=== PATIENT | male | born 1935 | race Caucasian/White ===

== ENCOUNTER 2017-02-19 19:20 | Inpatient (IN) | payer OTHER, MEDICARE ==
[~2017-02-19] VITALS: Ht 167.6 cm; Wt 78.0 kg
[2017-02-19 19:26] VITALS: BP 162/70; PULSE 134; RESP 24; TEMP 100.2; O2SAT 97
[2017-02-19] MEDS ORDERED: VANCOMYCIN INJ 1,000 MG in SODIUM CHLOR 0.9% 250 ML INJ 250 ML IV STA (19:55)
[2017-02-19] MEDS ORDERED: CEFEPIME INJ 2,000 MG in SODIUM CHLORIDE 0.9% INJ 100 ML IV STA (19:55)
[2017-02-19] MEDS ORDERED: SODIUM CHLOR 0.9% 1000 ML INJ 800 ML IV ONE (19:56)
[2017-02-19] MEDS ORDERED: SODIUM CHLOR 0.9% 1000 ML INJ 1,000 ML IV ONE (19:56)
--- NOTE | 2017-02-19 19:58 | PD ---
HPI Chief Complaint: Altered Mental Status Time Seen by Provider: 19:58 Travel History International Travel<30 days: No Contact w/Intl Traveler<30days: No Traveled to known affect area: No History of Present Illness HPI 81-year-old male comes in to the emergency department by [facility] for evaluation of altered mental status. Patient is able to tell me his name but unable to tell me any medical history at this time. Denies any pain. Patient was febrile 103 orally and round. [facility] gave fluid. Patient's temperature had decreased but remained febrile here in the emergency department. He is responsive to voice and follows commands. His arrives and tells me that she does not know his medical history. He is a patient at the [facility]. She states that she notes he does have bone cancer and he is typically awake and alert and very spry. He takes care of himself and this is very different from his usual self. He states that he recently finished treatment for UTI. He was normal last evening and vomited twice throughout the night and one time today. He has otherwise been very sleepy and difficult for her to get an appropriate response from. She called [facility] for this reason. [facility] Past Medical History Medical History: Unable to Obtain Social History Alcohol Use: No Tobacco Use: No Substance Use: No Allergies-Medications (Allergen,Severity, Reaction): Coded Allergies: No Known Allergies (Unverified , 02/19/17) Reported Meds & Prescriptions Reported Meds & Active Scripts Active Reported Zytiga (Abiraterone) 250 Mg Tab 1,000 Mg PO DAILY #1 HR LUNCHAC Hazardous agent; use appropriate precautions for handling & disposal. Take on an empty stomach, 1 hr before or 2 hrs after food. Swallow whole, do not crush or chew. Pravastatin 40 Mg Tab 40 Mg PO HS Colace (Docusate Sodium) 100 Mg Cap 100 Mg PO HS Metoprolol Tartrate 25 Mg Tab 25 Mg PO BID Review of Systems ROS Limitations: Altered Mental Status General / Constitutional: Positive: Fever Physical Exam Exam Limitations: Altered Mental Status Narrative GENERAL: Patient is lying in bed, arousable, with mild rigors. Patient is oriented to self. Uncertain of where he is or what day it is. SKIN: Warm and dry. HEAD: Atraumatic. Normocephalic. EYES: Pupils equal and round. No scleral icterus. No injection or drainage. ENT: No nasal bleeding or discharge. Mucous membranes pink and moist. NECK: Trachea midline. No JVD. Patient demonstrates no nuchal rigidity or other meningeal signs. CARDIOVASCULAR: Tachycardic rate and rhythm. RESPIRATORY: No accessory muscle use. Diminished, likely due to poor inspiratory effort. Breath sounds equal bilaterally. Abdomen: Abdomen soft, non-tender, nondistended. Positive bowel sounds. No hepato-splenomegaly, or palpable masses. No guarding. MUSCULOSKELETAL: No obvious deformities. No clubbing. No cyanosis. No edema. NEUROLOGICAL: Lethargic, arousable. No obvious cranial nerve deficits. Motor grossly within normal limits. Normal speech. Data Data Last Documented VS Vital Signs Date Time Temp Pulse Resp B/P Pulse Ox O2 Delivery O2 Flow Rate FiO2 02/19/17 21:09 132 20 141/62 96 Nasal Cannula 2 02/19/17 20:05 101.4 Orders Electrocardiogram (02/19/17 ) Complete Blood Count With Diff (02/19/17 19:55) Comprehensive Metabolic Panel (02/19/17 19:55) Prothrombin Time / Inr (Pt) (02/19/17 19:55) Act Partial Throm Time (Ptt) (02/19/17 19:55) Lactic Acid Sepsis Protocol (02/19/17 19:55) Magnesium (Mg) (02/19/17 19:55) Lipase (02/19/17 19:55) Ckmb (Isoenzyme) Profile (02/19/17 19:55) Troponin I (02/19/17 19:55) Urinalysis - C+S If Indicated (02/19/17 19:55) Influenzae A/B Antigen (02/19/17 19:55) Blood Culture (02/19/17 19:55) Chest, Single Ap (02/19/17 19:55) Blood Glucose (02/19/17 19:55) Ecg Monitoring (02/19/17 19:55) Iv Access Insert/Monitor (02/19/17 19:55) Oximetry (02/19/17 19:55) Oxygen Administration (02/19/17 19:55) Ct Brain W/O Iv Contrast(Rout) (02/19/17 19:55) Vancomycin Inj (Vancomycin Inj) (02/19/17 19:55) Cefepime Inj (Maxipime Inj) (02/19/17 19:55) Sodium Chlor 0.9% 1000 Ml Inj (Ns 1000 M (02/19/17 19:56) Sodium Chlor 0.9% 1000 Ml Inj (Ns 1000 M (02/19/17 19:56) B-Type Natriuretic Peptide (02/19/17 20:02) Urinary Catheter Management LUCERO.Q8H (02/19/17 20:10) Urine Culture (02/19/17 20:50) Labs Laboratory Tests Test 02/19/17 02/19/17 20:05 20:50 White Blood Count 8.4 TH/MM3 Red Blood Count 4.49 MIL/MM3 Hemoglobin 14.7 GM/DL Hematocrit 42.5 % Mean Corpuscular Volume 94.6 FL Mean Corpuscular Hemoglobin 32.8 PG Mean Corpuscular Hemoglobin 34.7 % Concent Red Cell Distribution Width 13.4 % Platelet Count 245 TH/MM3 Mean Platelet Volume 8.5 FL Neutrophils (%) (Auto) 82.0 % Lymphocytes (%) (Auto) 8.9 % Monocytes (%) (Auto) 7.3 % Eosinophils (%) (Auto) 1.4 % Basophils (%) (Auto) 0.4 % Neutrophils # (Auto) 6.9 TH/MM3 Lymphocytes # (Auto) 0.7 TH/MM3 Monocytes # (Auto) 0.6 TH/MM3 Eosinophils # (Auto) 0.1 TH/MM3 Basophils # (Auto) 0.0 TH/MM3 CBC Comment DIFF FINAL Differential Comment Prothrombin Time 11.4 SEC Prothromb Time International 1.0 RATIO Ratio Activated Partial 27.4 SEC Thromboplast Time Sodium Level 141 MEQ/L Potassium Level 3.6 MEQ/L Chloride Level 110 MEQ/L Carbon Dioxide Level 20.3 MEQ/L Anion Gap 11 MEQ/L Blood Urea Nitrogen 23 MG/DL Creatinine 1.88 MG/DL Estimat Glomerular Filtration 34 ML/MIN Rate Random Glucose 121 MG/DL Lactic Acid Level 3.5 mmol/L Calcium Level 8.4 MG/DL Magnesium Level 1.8 MG/DL Aspartate Amino Transf 20 U/L (AST/SGOT) Albumin 3.3 GM/DL Lipase 171 U/L Urine Color YELLOW Urine Turbidity HAZY Urine pH 5.0 Urine Specific [place] 1.012 Urine Protein 30 mg/dL Urine Glucose (UA) NEG mg/dL Urine Ketones NEG mg/dL Urine Occult Blood SMALL Urine Nitrite NEG Urine Bilirubin NEG Urine Urobilinogen LESS THAN 2.0 MG/DL Urine Leukocyte Esterase MOD Urine RBC 6 /hpf Urine WBC 10 /hpf Urine Squamous Epithelial <1 /hpf Cells Urine Amorphous Sediment RARE Urine Bacteria MOD /hpf Urine Mucus FEW /lpf Microscopic Urinalysis Comment CATH-CULTURE IND MDM Medical Decision Making Medical Screen Exam Complete: Yes Emergency Medical Condition: Yes Medical Record Reviewed: Yes Differential Diagnosis sepsis versus UTI versus influenza versus pneumonia versus electrolyte abnormality Narrative Course 81-year-old male presents to emergency department for evaluation of altered mental status area patient is febrile and tachycardic upon arrival. He is lethargic, arousable. Sepsis protocols initiated. I discussed the patient with my attending physician Dr. Ng. Due to not knowing patient's medical history and age, we will start with half of the recommended dose for his weight and IV fluid normal saline bolus. Patient is given IV cefepime and vancomycin. Last Impressions Head CT 02/19/171954 Signed Impressions: Service Date/Time: January 20:19 - CONCLUSION: 1. No acute intracranial abnormalities. Sai Markham MD Chest X-Ray 02/19/171954 Signed Impressions: Service Date/Time: January 20:05 - CONCLUSION: 1. Linear atelectasis or scarring at the lung bases. No effusion or pneumothorax. Sai Markham MD Influenza screen is pending. CBC is without acute concern. No leukocytosis. No significant neutrophilia. No bandemia noted. CMP is with BUN of 23, creatinine 1.88, GFR 34. Lactic acid is elevated at 3.5. Liver enzymes and troponin are still pending. Urinalysis is hazy with 30 proteinuria, small focal blood, moderate leukocyte esterase, 6 rbc, 10 WBC, moderate bacteria, few mucus, culture is indicated. A call has a place to [facility] for admission. Diagnosis Primary Impression: Sepsis Qualified Code: A41.9 - Sepsis, due to unspecified organism Additional Impressions: UTI (urinary tract infection) Qualified Code: N39.0 - Urinary tract infection without hematuria, site unspecified Altered mental status Qualified Code: R41.82 - Altered mental status, unspecified altered mental status type Admitting Information Admitting Physician Requests: Admit Condition: Stable EsquedaPatsy orourke Feb 19, 2017 19:58
[2017-02-19 20:05] VITALS: TEMP 101.4
[2017-02-19] MEDS ORDERED: METO25TA3 PO (20:36)
[2017-02-19] MEDS ORDERED: ZYTI250T PO (20:36)
[2017-02-19] MEDS ORDERED: COLA100C3 PO (20:36)
[2017-02-19] MEDS ORDERED: PRAV40TA2 PO (20:36)
[2017-02-19 20:48] LABS: AUTOMATED NEUTROPHIL # 6.9 TH/MM3 (1.8-7.7); BASOPHIL % 0.4 % (0.0-2.0); EOSINOPHIL # 0.1 TH/MM3 (0-0.4); EOSINOPHIL % 1.4 % (0.0-4.0); HEMATOCRIT 42.5 % (39.0-51.0); HEMO FLAGS DIFF FINAL; LYMPH % 8.9 % (9.0-44.0); LYMPHOCYTE # 0.7 TH/MM3 (1.0-4.8); MEAN CELL VOLUME 94.6 FL (80.0-100.0); MEAN CORPUSCULAR HEMOGLOBIN 32.8 PG (27.0-34.0); MEAN CORPUSCULAR HGB CONC 34.7 % (32.0-36.0); MONO % 7.3 % (0.0-8.0); PLATELET COUNT 245 TH/MM3 (150-450); RED BLOOD COUNT 4.49 MIL/MM3 (4.50-5.90); RED CELL DISTRIBUTION WIDTH 13.4 % (11.6-17.2); WHITE BLOOD COUNT 8.4 TH/MM3 (4.0-11.0)
--- NOTE | 2017-02-19 20:48 | RADRPT ---
EXAM DATE/TIME: 02/19/2017 20:05 [facility] COMPARISON: No previous studies available for comparison. INDICATIONS : Fever MEDICAL HISTORY : None. SURGICAL HISTORY : None. ENCOUNTER: Initial ACUITY: 1 day PAIN SCORE: Non-responsive. LOCATION: chest FINDINGS: A single view of the chest demonstrates the lungs to be symmetrically aerated without evidence of mas s, infiltrate or effusion. Linear atelectasis or scarring at the bases. No effusion or pneumothorax. The cardiomediastinal contours are unremarkable. Osseous structures are intact. CONCLUSION: 1. Linear atelectasis or scarring at the lung bases. No effusion or pneumothorax. Sai Markham MD on February 19, 2017 at 20:45 Board Certified Radiologist. This report was verified electronically.
--- NOTE | 2017-02-19 20:55 | RADRPT ---
EXAM DATE/TIME: 02/19/2017 20:19 [facility] COMPARISON: No previous studies available for comparison. INDICATIONS : Altered mental status with fever and increased heart rate. RADIATION DOSE: 38.00 CTDIvol (mGy) MEDICAL HISTORY : None SURGICAL HISTORY : None. ENCOUNTER: Initial ACUITY: 1 day PAIN SCALE: 0/10 LOCATION: cranial TECHNIQUE: Multiple contiguous axial images were obtained of the head. Using automated exposure control and adj ustment of the mA and/or kV according to patient size, radiation dose was kept as low as reasonably a chievable to obtain optimal diagnostic quality images. FINDINGS: CEREBRUM: The ventricles are normal for age. No evidence of midline shift, mass lesion, hemorrhage or acute in farction. No extra-axial fluid collections are seen. POSTERIOR FOSSA: The cerebellum and brainstem are intact. The 4th ventricle is midline. The cerebellopontine angle i s unremarkable. EXTRACRANIAL: The visualized portion of the orbits is intact. SKULL: The calvaria is intact. No evidence of skull fracture. CONCLUSION: 1. No acute intracranial abnormalities. Sai Markham MD on February 19, 2017 at 20:50 Board Certified Radiologist. This report was verified electronically.
[2017-02-19 21:09] VITALS: BP 141/62; PULSE 132; RESP 20; O2SAT 96
[2017-02-19 21:09] LABS: ANION GAP 11 MEQ/L (5-15); AST (GOT) 20 U/L (15-37); BICARBONATE 20.3 MEQ/L (21.0-32.0); BLOOD UREA NITROGEN 23 MG/DL (7-18); CHLORIDE 110 MEQ/L (98-107); GLOMERULAR FILTRATION RATE 34 ML/MIN (>89); MAGNESIUM 1.8 MG/DL (1.5-2.5); POTASSIUM 3.6 MEQ/L (3.5-5.1); SODIUM (NA) 141 MEQ/L (136-145)
[2017-02-19 21:10] LABS: BACTERIA, URINE MOD /hpf; BLOOD, URINE SMALL (NEG); GLUCOSE,URINE NEG (NEG); KETONE, URINE NEG (NEG); MUCUS URINE FEW /lpf (OCC); NITRITE,URINE NEG (NEG); SQUAMOUS EPITHELIAL CELL URINE <1 /hpf (0-5); URINE COLOR YELLOW (YELLW/STRAW)
[2017-02-19 21:11] LABS: COMMENT (UR) CATH-CULTURE IND; CULTURE IF INDICATED CATH CULTURE IND
[2017-02-19 21:13] LABS: ALKALINE PHOSPHATASE 99 U/L (45-117); ALT (GPT) 17 U/L (12-78); TOTAL BILIRUBIN ADULT 0.7 MG/DL (0.2-1.0)
[2017-02-19 21:18] LABS: APTT (PATIENT) 27.4 SEC (24.3-30.1); PROTHROMBIN TIME - PATIENT 11.4 SEC (9.8-11.6)
[2017-02-19 21:26] LABS: CREATINE KINASE 72 U/L (39-308)
[2017-02-19] MEDS ORDERED: ACETAMINOPHEN 650 MG SUPP RECTAL ONE (21:30)
[2017-02-19 22:00] VITALS: BP 102/51; PULSE 127; RESP 21; TEMP 102.8; O2SAT 96
[2017-02-19 22:29] LABS: LACTIC ACID GHOST NOT REPORTABLE
[2017-02-19] MEDS ORDERED: NALOXONE HCL 0.4 MG/ML AMP IV PRN (23:00)
[2017-02-19] MEDS ORDERED: SODIUM CHLORIDE 0.9% FLUSH 10 ML FLUSH IV FLUSH PRN (23:00)
[2017-02-19 23:04] VITALS: BP 104/59; PULSE 122; RESP 18; O2SAT 96
[2017-02-19 23:45] VITALS: TEMP 103.3
[2017-02-19] MEDS ORDERED: IBUPROFEN 400 MG TAB PO ONE (23:45)
[2017-02-20] VITALS (32 sets, daily range): BP systolic 68–123; BP diastolic 42–82; PULSE 95–125; RESP 12–35; TEMP 96.8–102.4; O2SAT 92–98
--- NOTE | 2017-02-20 02:48 | HHI.HP ---
[facility] Admission Diagnosis SEPSIS, UTI; AMS Diagnoses: Chief Complaint: Nausea, vomiting, diarrhea Travel History International Travel<30 Days: No Contact w/Intl Traveler <30 Da: No Traveled to Known Affected Are: No History of Present Illness History from patient, ER physician for medication, interview of medical records. Patient reported that he came to the hospital because he was having nausea, vomiting, diarrhea. Next and he stated this started all of a sudden last night. He blames this on the lack son yet that he had. He stated it was homemade You but it was from the frozen section. His who ate the same thing was not sick. Patient is unsure whether he had fever at home. However in the emergency room, patient has documented fever of 103. He denies any cough. Denies any ear discharge/neck rigidity. Denies any urinary burning or pain on urination or frequent urination. However patient states that he was being treated for bladder infection recently. He states he completed 7 days course of antibiotics for his bladder infection. He states his last dose of antibiotics was 4 days ago. He reports that on December 02, 2016, he did have cystoscopy done for looking into his bladder. He states he developed this UTI after the procedure. Patient reports of history of prostate cancer for which he had radical prostatectomy about 20 years ago. He states that he then received radiation treatment about 6 years ago and completed that. He is currently now on oral chemotherapy daily for the past 2 years or so. 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 In the emergency room, patient's blood pressure was around 80s over 50s. He did receive 1 L normal saline bolus by ambulance personnel prior to arrival. He was awake alert and oriented. Not tachycardic. He was given vancomycin and cefepime in ER. Review of Systems Except as stated in HPI: all other systems reviewed are Neg Past Family Social History Past Medical History htn cad s/p 2 stents prostae ca with mets to bone - radical 20yrs ago,radiation 6 yrs ago, on oral chemo for past 2 yrs Past Surgical History prostectomy testicles removed gallbladder appendix Reported Medications Patient's medications listed in EMRreviewed. Allergies: Coded Allergies: No Known Allergies (Unverified , 02/19/17) Family History Denies any family history of any medical conditions. Social History quit smoking 60yrs ago social drinker Physical Exam Vital Signs Vital Signs Date Time Temp Pulse Resp B/P Pulse Ox O2 Delivery O2 Flow Rate FiO2 02/20/17 02:08 112 17 92/54 92 Nasal Cannula 2 02/20/17 01:20 101.9 02/20/17 01:00 125 19 123/81 96 Nasal Cannula 2 02/20/17 00:00 102.4 123 20 113/58 96 Nasal Cannula 2 02/19/17 23:45 103.3 02/19/17 23:04 122 18 104/59 96 Nasal Cannula 2 02/19/17 22:00 102.8 127 21 102/51 96 Nasal Cannula 2 02/19/17 21:09 132 20 141/62 96 Nasal Cannula 2 02/19/17 20:05 101.4 02/19/17 19:59 97 Nasal Cannula 2 02/19/17 19:26 100.2 134 24 162/70 97 Physical Exam GENERAL: This is a elderly gentleman, not in acute distress. Looks pale. Looks to be acutely ill and weak. However is very pleasant and awake and alert and oriented. SKIN: Tactile fever. HEAD: Atraumatic. Normocephalic. No temporal or scalp tenderness. EYES: No scleral icterus. No injection or drainage. ENT: Nose without bleeding, purulent drainage or septal hematoma.Airway patent. NECK: Trachea midline. No JVD Supple, nontender, no meningeal signs. CARDIOVASCULAR: Regular rate and rhythm without murmurs, gallops, or rubs. RESPIRATORY: Bilaterally decreased air entry. No kartik rales or wheezing. GASTROINTESTINAL: Abdomen soft, non-tender, nondistended. No guarding. No suprapubic tenderness. MUSCULOSKELETAL: Extremities without clubbing, cyanosis, or edema. No calf tenderness. NEUROLOGICAL: Awake and alert. Motor and sensory grossly within normal limits. Normal speech. Laboratory Laboratory Tests Test 02/19/17 02/19/17 02/19/17 20:05 20:50 22:53 White Blood Count 8.4 Red Blood Count 4.49 Hemoglobin 14.7 Hematocrit 42.5 Mean Corpuscular Volume 94.6 Mean Corpuscular Hemoglobin 32.8 Mean Corpuscular Hemoglobin 34.7 Concent Red Cell Distribution Width 13.4 Platelet Count 245 Mean Platelet Volume 8.5 Neutrophils (%) (Auto) 82.0 Lymphocytes (%) (Auto) 8.9 Monocytes (%) (Auto) 7.3 Eosinophils (%) (Auto) 1.4 Basophils (%) (Auto) 0.4 Neutrophils # (Auto) 6.9 Lymphocytes # (Auto) 0.7 Monocytes # (Auto) 0.6 Eosinophils # (Auto) 0.1 Basophils # (Auto) 0.0 CBC Comment DIFF FINAL Differential Comment Prothrombin Time 11.4 Prothromb Time International 1.0 Ratio Activated Partial 27.4 Thromboplast Time Sodium Level 141 Potassium Level 3.6 Chloride Level 110 Carbon Dioxide Level 20.3 Anion Gap 11 Blood Urea Nitrogen 23 Creatinine 1.88 Estimat Glomerular Filtration 34 Rate Random Glucose 121 Lactic Acid Level 3.5 1.7 Calcium Level 8.4 Magnesium Level 1.8 Total Bilirubin 0.7 Aspartate Amino Transf 20 (AST/SGOT) Alanine Aminotransferase 17 (ALT/SGPT) Alkaline Phosphatase 99 Total Creatine Kinase 72 Troponin I 0.03 B-Type Natriuretic Peptide 175 Total Protein 7.0 Albumin 3.3 Lipase 171 Urine Color YELLOW Urine Turbidity HAZY Urine pH 5.0 Urine Specific [place] 1.012 Urine Protein 30 Urine Glucose (UA) NEG Urine Ketones NEG Urine Occult Blood SMALL Urine Nitrite NEG Urine Bilirubin NEG Urine Urobilinogen LESS THAN 2.0 Urine Leukocyte Esterase MOD Urine RBC 6 Urine WBC 10 Urine Squamous Epithelial <1 Cells Urine Amorphous Sediment RARE Urine Bacteria MOD Urine Mucus FEW Microscopic Urinalysis Comment CATH-CULTURE IND Date/Time Procedure Status Source Growth 02/19/17 20:50 Urine Culture Received Urine Catheterized Urine Pending 02/19/17 20:50 Influenza Types A,B Antigen (CESAR) - Final Complete Nasal Washing NEGATIVE FOR FLU A AND B ANTIGEN.... 02/19/17 20:05 Aerobic Blood Culture Received Blood Peripheral Pending 02/19/17 20:05 Anaerobic Blood Culture Received Blood Peripheral Pending Result Diagram: 02/19/17200402/19/172004 Imaging Vital Signs Date Time Temp Pulse Resp B/P Pulse Ox O2 Delivery O2 Flow Rate FiO2 02/20/17 08:16 95/82 02/20/17 07:55 109 81/52 02/20/17 07:50 110 24 79/50 95 Nasal Cannula 2 02/20/17 07:26 82/50 02/20/17 07:11 Nasal Cannula 2 02/20/17 07:04 96.8 108 16 89/50 97 Nasal Cannula 2 02/20/17 06:52 110 18 110/56 94 Nasal Cannula 02/20/17 06:41 106 18 84/50 95 Nasal Cannula 2 02/20/17 06:30 110 20 82/53 94 Nasal Cannula 2 02/20/17 06:23 103 17 81/50 95 Nasal Cannula 2 02/20/17 06:16 107 18 81/49 93 Nasal Cannula 2 02/20/17 06:08 105 18 95/50 Nasal Cannula 2 02/20/17 05:50 107 18 87/52 95 Nasal Cannula 2 02/20/17 05:40 97.7 106 20 87/55 94 Nasal Cannula 2 02/20/17 05:17 105 17 85/46 95 Nasal Cannula 2 02/20/17 04:47 102 18 84/46 94 2 02/20/17 04:37 102 19 77/42 95 Nasal Cannula 2 02/20/17 04:36 103 18 68/44 95 Nasal Cannula 2 02/20/17 03:15 98.1 02/20/17 03:03 113 18 92/59 96 Nasal Cannula 2 02/20/17 02:08 112 17 92/54 92 Nasal Cannula 2 02/20/17 01:20 101.9 02/20/17 01:00 125 19 123/81 96 Nasal Cannula 2 02/20/17 00:00 102.4 123 20 113/58 96 Nasal Cannula 2 02/19/17 23:45 103.3 02/19/17 23:04 122 18 104/59 96 Nasal Cannula 2 02/19/17 22:00 102.8 127 21 102/51 96 Nasal Cannula 2 02/19/17 21:09 132 20 141/62 96 Nasal Cannula 2 02/19/17 20:05 101.4 02/19/17 19:59 97 Nasal Cannula 2 02/19/17 19:26 100.2 134 24 162/70 97 Assessment and Plan Problem List: (1) Septic shock ICD Code: A41.9 Status: Acute (2) UTI (urinary tract infection) ICD Code: N39.0 Status: Acute Assessment and Plan Impression: Septic shock Sources likely urine infection. Diarrhea/nausea/vomitingpossible food related. However we'll need to check for C. difficile since patient has recent hospitalization and antibiotics used for UTI. Immunocompromise stateon oral chemotherapy History of hypertension History of CADstatus post 2 stents History of prostate CA with metastasis to the boneradical prostatectomy 20 years ago. Radiation 6 years ago. On oral chemotherapy for past 2 years. Plan: Follow-up blood culture results and urine culture results. Cefepime 2 g IV every 12 hours Ciprofloxacin 400 mg IV every 12 hours. Stool for cultures. Stool for C. difficile. Chest x-raypersonally reviewed. No evidence of pneumothorax or pleural effusions. Patient was given IV fluids resuscitation. He received 2 L in ER. Has given additional 2 L by me. EMS had given 1 L. Despite the above, patient's BP was not improving. Lactic acid level also went back up. Urinary output to be monitored closely. Started on Solu-Cortef stress dose 100 mg IV every 8 hours. PPI while on steroids. DVT prophylaxiswith Lovenox. GI prophylaxis on pantoprazole. Discussed Condition With Patient, ER physician, patient's nurse Physician Certification 2 Midnight Certification Type: Admission for Inpatient Services Order for Inpatient Services The services are ordered in accordance with Medicare regulations or non- Medicare payer requirements, as applicable. In the case of services not specified as inpatient-only, they are appropriately provided as inpatient services in accordance with the 2-midnight benchmark. Estimated LOS (days): 5 days is the estimated time the patient will need to remain in the hospital, assuming treatment plan goals are met and no additional complications. Post-Hospital Plan: Not yet determined Problem Qualifiers (1) UTI (urinary tract infection): Qualified Code: N39.0 - Urinary tract infection without hematuria, site unspecified Yudelka Brady MD Feb 20, 2017 02:48
[2017-02-20] MEDS ORDERED: NOREPINEPHRINE 4 MG/4 ML AMP ONE (04:29)
[2017-02-20] MEDS ORDERED: Vancomycin Consult Pharmacy 1 EA OTHER SCH ×2 (04:30→06:45)
[2017-02-20] MEDS ORDERED: SODIUM CHLOR 0.9% 1000 ML INJ 1,000 ML IV ONE ×3 (04:30→09:45)
[2017-02-20] MEDS ORDERED: TERBUTALINE INJ 1 MG/ML AMP SQ PRN (04:30)
[2017-02-20] MEDS: NOREPINEPHRINE-DEXTROSE DRIP 250 ML IV SCH ×2 (04:35→09:08)
[2017-02-20 06:53] LABS: AUTOMATED NEUTROPHIL # 6.4 TH/MM3 (1.8-7.7); BASOPHIL # 0.1 TH/MM3 (0-0.2); EOSINOPHIL # 0.3 TH/MM3 (0-0.4); EOSINOPHIL % 3.7 % (0.0-4.0); HEMATOCRIT 38.3 % (39.0-51.0); HEMO FLAGS DIFF FINAL; LYMPH % 12.6 % (9.0-44.0); MEAN CELL VOLUME 94.4 FL (80.0-100.0); MEAN CORPUSCULAR HEMOGLOBIN 32.1 PG (27.0-34.0); MONO % 5.1 % (0.0-8.0); NEUT % 77.6 % (16.0-70.0); PLATELET COUNT 261 TH/MM3 (150-450); RED BLOOD COUNT 4.05 MIL/MM3 (4.50-5.90); RED CELL DISTRIBUTION WIDTH 13.8 % (11.6-17.2); WHITE BLOOD COUNT 8.2 TH/MM3 (4.0-11.0)
--- NOTE | 2017-02-20 06:55 | PD ---
Physical Exam Narrative I was asked by physician to place a central line for the patient. Data Data Last Documented VS Vital Signs Date Time Temp Pulse Resp B/P Pulse Ox O2 Delivery O2 Flow Rate FiO2 02/19/17 21:09 132 20 141/62 96 Nasal Cannula 2 02/19/17 20:05 101.4 Orders Electrocardiogram (02/19/17 ) Complete Blood Count With Diff (02/19/17 19:55) Comprehensive Metabolic Panel (02/19/17 19:55) Prothrombin Time / Inr (Pt) (02/19/17 19:55) Act Partial Throm Time (Ptt) (02/19/17 19:55) Lactic Acid Sepsis Protocol (02/19/17 19:55) Magnesium (Mg) (02/19/17 19:55) Lipase (02/19/17 19:55) Ckmb (Isoenzyme) Profile (02/19/17 19:55) Troponin I (02/19/17 19:55) Urinalysis - C+S If Indicated (02/19/17 19:55) Influenzae A/B Antigen (02/19/17 19:55) Blood Culture (02/19/17 19:55) Chest, Single Ap (02/19/17 19:55) Blood Glucose (02/19/17 19:55) Ecg Monitoring (02/19/17 19:55) Iv Access Insert/Monitor (02/19/17 19:55) Oximetry (02/19/17 19:55) Oxygen Administration (02/19/17 19:55) Ct Brain W/O Iv Contrast(Rout) (02/19/17 19:55) Vancomycin Inj (Vancomycin Inj) (02/19/17 19:55) Cefepime Inj (Maxipime Inj) (02/19/17 19:55) Sodium Chlor 0.9% 1000 Ml Inj (Ns 1000 M (02/19/17 19:56) Sodium Chlor 0.9% 1000 Ml Inj (Ns 1000 M (02/19/17 19:56) B-Type Natriuretic Peptide (02/19/17 20:02) Urinary Catheter Management LUCERO.Q8H (02/19/17 20:10) Urine Culture (02/19/17 20:50) Acetaminophen Supp (Tylenol Supp) (02/19/17 21:30) Admit Order (Ed Use Only) (02/19/17 21:41) Labs Laboratory Tests Test 02/19/17 02/19/17 20:05 20:50 White Blood Count 8.4 TH/MM3 Red Blood Count 4.49 MIL/MM3 Hemoglobin 14.7 GM/DL Hematocrit 42.5 % Mean Corpuscular Volume 94.6 FL Mean Corpuscular Hemoglobin 32.8 PG Mean Corpuscular Hemoglobin 34.7 % Concent Red Cell Distribution Width 13.4 % Platelet Count 245 TH/MM3 Mean Platelet Volume 8.5 FL Neutrophils (%) (Auto) 82.0 % Lymphocytes (%) (Auto) 8.9 % Monocytes (%) (Auto) 7.3 % Eosinophils (%) (Auto) 1.4 % Basophils (%) (Auto) 0.4 % Neutrophils # (Auto) 6.9 TH/MM3 Lymphocytes # (Auto) 0.7 TH/MM3 Monocytes # (Auto) 0.6 TH/MM3 Eosinophils # (Auto) 0.1 TH/MM3 Basophils # (Auto) 0.0 TH/MM3 CBC Comment DIFF FINAL Differential Comment Prothrombin Time 11.4 SEC Prothromb Time International 1.0 RATIO Ratio Activated Partial 27.4 SEC Thromboplast Time Sodium Level 141 MEQ/L Potassium Level 3.6 MEQ/L Chloride Level 110 MEQ/L Carbon Dioxide Level 20.3 MEQ/L Anion Gap 11 MEQ/L Blood Urea Nitrogen 23 MG/DL Creatinine 1.88 MG/DL Estimat Glomerular Filtration 34 ML/MIN Rate Random Glucose 121 MG/DL Lactic Acid Level 3.5 mmol/L Calcium Level 8.4 MG/DL Magnesium Level 1.8 MG/DL Total Bilirubin 0.7 MG/DL Aspartate Amino Transf 20 U/L (AST/SGOT) Alanine Aminotransferase 17 U/L (ALT/SGPT) Alkaline Phosphatase 99 U/L Total Creatine Kinase 72 U/L Troponin I 0.03 NG/ML B-Type Natriuretic Peptide 175 PG/ML Total Protein 7.0 GM/DL Albumin 3.3 GM/DL Lipase 171 U/L Urine Color YELLOW Urine Turbidity HAZY Urine pH 5.0 Urine Specific [place] 1.012 Urine Protein 30 mg/dL Urine Glucose (UA) NEG mg/dL Urine Ketones NEG mg/dL Urine Occult Blood SMALL Urine Nitrite NEG Urine Bilirubin NEG Urine Urobilinogen LESS THAN 2.0 MG/DL Urine Leukocyte Esterase MOD Urine RBC 6 /hpf Urine WBC 10 /hpf Urine Squamous Epithelial <1 /hpf Cells Urine Amorphous Sediment RARE Urine Bacteria MOD /hpf Urine Mucus FEW /lpf Microscopic Urinalysis Comment CATH-CULTURE IND MDM Supervised Visit with SHOAIB: No Procedures Procedure Narrative CENTRAL VENOUS LINE: The site was prepped with Betadine and sterilely draped. It was infiltrated with 1% lidocaine plain. The deep vein was cannulated using normal Seldinger technique. A triple lumen central line was placed in the right femoral vein site and secured with simple interrupted suture. The site was sterilely dressed. The patient tolerated the procedure well. Diagnosis Primary Impression: Sepsis Qualified Code: A41.9 - Sepsis, due to unspecified organism Additional Impressions: UTI (urinary tract infection) Qualified Code: N39.0 - Urinary tract infection without hematuria, site unspecified Altered mental status Qualified Code: R41.82 - Altered mental status, unspecified altered mental status type Condition: Stable David Corea MD Feb 20, 2017 06:54
[2017-02-20 07:33] LABS: LACTIC ACID GHOST NOT REPORTABLE
[2017-02-20] MEDS: HYDROCORTISONE SOD SUCCINATE 100 MG VIAL IV PUSH SCH ×3 (07:47→22:04)
[2017-02-20] MEDS: PANTOPRAZOLE SODIUM 40 MG VIAL IV PUSH SCH (07:48)
[2017-02-20] MEDS ORDERED: CIPROFLOXACIN 400 MG PREMIX 200 ML IV SCH (08:00)
[2017-02-20] MEDS ORDERED: MISCELLANEOUS NURSING INFORMATION XX SCH (08:30)
[2017-02-20] MEDS ORDERED: CHLORHEXIDINE GLUCONATE 2 % 1 PACK (2 CLOTHS) TOP PRN (08:30)
[2017-02-20 08:32] LABS: BICARBONATE 15.2 MEQ/L (21.0-32.0); POTASSIUM 3.1 MEQ/L (3.5-5.1)
[2017-02-20 08:47] LABS: CALCIUM-PROTEIN CORRECTED 8.1 MG/DL (8.5-10.1)
[2017-02-20] MEDS ORDERED: METOPROLOL TARTRATE 25 MG TAB PO SCH (09:00)
[2017-02-20] MEDS: SODIUM CHLORIDE 0.9% FLUSH 10 ML FLUSH IV FLUSH SCH ×2 (09:00→20:37)
[2017-02-20] MEDS ORDERED: CEFEPIME INJ 2,000 MG in SODIUM CHLORIDE 0.9% INJ 100 ML IV SCH (09:00)
[2017-02-20] MEDS ORDERED: DEXTROSE 50% IN WATER 50 ML VIAL(D50) IV PUSH PRN (09:30)
[2017-02-20] MEDS ORDERED: GLUCAGON 1 MG/ML VIAL OTHER PRN (09:30)
[2017-02-20] MEDS ORDERED: SODIUM BICARBONATE 8.4% INJ 50 MEQ/50 ML SYR IV PUSH ONE (09:45)
[2017-02-20] MEDS ORDERED: SODIUM BICARBONATE 8.4% INJ 50 ML ONE (09:53)
[2017-02-20] MEDS ORDERED: POTASSIUM CHLOR 40 MEQ PREMIX 100 ML IV ONE (10:00)
[2017-02-20] MEDS ORDERED: metroNIDAZOLE 500 MG INJ 100 ML IV SCH (10:00)
[2017-02-20] MEDS: INSULIN NovoLIN REGULAR SUPPLEMENTAL SCALE SQ SCH ×3 (10:00→20:39)
[2017-02-20 10:22] LABS: BLOOD GAS BASE EXCESS -8.8 mmol/L (-2-2); BLOOD GAS CARBOXYHEMOGLOBIN 0.2 % (0-4); BLOOD GAS HCO3 15 mmol/L (22-26); BLOOD GAS METHEMOGLOBIN 1.3 % (0-2); BLOOD GAS O2 HGB SATURATION 93 % (90-100); BLOOD GAS OXYGEN CONTENT 15.6 Vol % (12.0-20.0); BLOOD GAS PCO2 24 mmHg (38-42); BLOOD GAS PO2 82 mmHg (61-120); BLOOD GAS TOTAL HGB 11.9 G/DL (12.0-16.0); TEMP CORR TO 98.6
[2017-02-20 10:23] LABS: CRITICAL VALUE YES; DRAW SITE RT RADIAL; LITER FLOW 6 L/M; NUMBER OF ARTERIAL PUNCTURES 1; OXYGEN DEVICE NASAL CANNULA; STAT YES; ULNAR PULSE PRESENT
--- NOTE | 2017-02-20 10:56 | MB ---
cc: SULEIMAN CALDERON M.D. 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 He presented to the [facility] ED last night with a history of intractable nausea and vomiting x1 day and altered mental status. On arrival to the ED the patient had a fever with a T-max of 103.3 and early this morning he became hypotensive with a systolic blood pressure in the 70s to 80s. The patient was given approximately four liters of crystalloids and was initially admitted under the hospitalist service. His initial laboratory data from last night showed renal failure with creatinine of 1.88 and elevated lactic acid level of 3.5. There was no evidence of any leukocytosis. CT scan of the brain was obtained which showed no acute intracranial abnormality and a chest x-ray in the ER showed linear atelectasis / scarring at the lung bases. He was given vancomycin and cefepime. Due to persistent hypotension the patient was started on Levophed which is currently at 20 mcg and a right femoral central line was placed by the ED physician. His labs from this morning showed worsening renal function with creatinine level of 1.93. Urinalysis showed moderate leukocyte esterase, 10 wbc's, moderate bacteria. He denies any chest pain, shortness of breath or abdominal pain, however, he reports intermittent abdominal cramps associated with his nausea and vomiting. The patient states that he had homemade frozen food and shortly after he developed his nausea and vomiting along with diarrhea. The patient just finished a seven-day course of antibiotics for a bladder infection. The patient denies any orthopnea, PND or edema of the lower extremities. PAST MEDICAL HISTORY 1. Hypertension. 2. Prostate CA with metastasis to the bone. 3. Coronary artery disease with previous stent placement. PAST SURGICAL HISTORY 1. Previous radical prostatectomy. 2. Previous orchiectomy. 3. Previous cholecystectomy. 4. Previous appendectomy. ALLERGIES No known drug allergies. SOCIAL HISTORY Remote history of tobacco use. Social drinker. FAMILY HISTORY Noncontributory. MEDICATIONS Reported medications include: 1. Pravastatin. 2. Lopressor. 3. Zytiga. 4. Colace. REVIEW OF SYSTEMS As per HPI. The rest of the review of systems is unremarkable. PHYSICAL EXAMINATION GENERAL: An 81-year-old male lying in bed in no acute respiratory distress. The patient is critically ill-appearing on Levophed. VITAL SIGNS: T-max 103.3, pulse 107, blood pressure 90/54. Saturation 95% on 2 liter oxygen. HEENT: Atraumatic, normocephalic. Pupils equal, round and reactive to light and accommodation. Extraocular muscles are intact. Conjunctiva pink. Non-icteric sclera. Oral mucosa within normal. NECK: Supple. No JVD, adenopathy or thyromegaly. Trachea in the midline. CARDIOVASCULAR: Tachycardic. Normal S1, S2. No murmurs, rubs or gallops noted. PULMONARY: Bilateral equal entry. No rales or wheezing. ABDOMEN: Soft, nontender. Positive bowel sounds. EXTREMITIES: No clubbing, cyanosis or edema. NEUROLOGIC: No focal sensory deficit. LABORATORY DATA Sodium 147, potassium 3.1, chloride 120, CO2 15, BUN 24, creatinine 1.93, glucose 93, corrected calcium 8.1, lactic acid level 3.5 on arrival, 2.7 this morning. WBC 8.2, hemoglobin 13, hematocrit 38, platelet count 261. INR 1.0, PT 11.4, PTT 27.4. Urinalysis showed moderate leukocyte esterase, moderate bacteria, 10 wbc's. RADIOGRAPHIC STUDIES Chest x-ray showed linear atelectasis / scarring at the lung bases. CT brain showed no acute intracranial abnormalities. IMPRESSION 1. Septic shock. 2. Intractable nausea and vomiting. 3. Lactic acidemia. 4. Acute renal failure. 5. Urinary tract infection. 6. Hypernatremia. 7. Hypokalemia. 8. History of hypertension. 9. History of coronary artery disease. 10.History of prostate CA with bone mets. PLAN/RECOMMENDATIONS 1. Monitor neuro status closely and avoid any sedatives. A CT scan of the brain in the ED showed no acute intracranial abnormality. 2. Continue with oxygen and maintain sats above 92%. 3. Bronchodilators in the form of DuoNeb q.6h., plus q.2h. p.r.n. for shortness of breath. 4. Wean off Levophed, monitor heart rate and blood pressure closely and maintain MAP greater than 65 mmHg. 5. Serial lactic acid monitoring and CVP monitoring. 6. Patient status post approximately 4-5 liters of crystalloids in the ED. Will place on maintenance fluids, D5 half NS at 100 mL an hour. 7. Hold blood pressure meds as the patient is on pressors. 8. Monitor renal function, I's and O's, and electrolyte replacement as needed. Avoid nephrotoxins. Continue with IV hydration and maintenance fluids as stated above. Consider nephrology evaluation if renal function worsens. 9. Keep n.p.o. for now and place on Protonix 40 mg IV daily for GI prophylaxis. 10.Continue with broad-spectrum antibiotics. The patient was given cefepime and vancomycin in the ED. Will continue with cefepime and placed on Flagyl 500 mg IV q.8h. Follow-up on blood and urine cultures. His nasal washing for influenza is negative. 11.Will check C. diff PCR, to rule out C. diff colitis. Will send stool for ova and parasites and check Giardia antigen. 12.Consult the infectious disease service. 13.Will obtain a CT scan of the abdomen and pelvis without contrast. 14.Sliding scale insulin with Accu-Chek q.6h. 15.Stress dose steroids with hydrocortisone 100 mg IV q.8h. 16.GI prophylaxis with Protonix 40 mg daily. 17.DVT prophylaxis with heparin subcu. A right femoral central line was placed by the ED physician. Critical care time 40 minutes excluding procedures. Further recommendations will be based on the hospital course. MD ARNOLDO Santillan/STANLEY /9:40 AM /10:33 AM
[2017-02-20] MEDS ORDERED: CALCIUM GLUCONATE INJ 1 GM in SODIUM CHLORIDE 0.9% INJ 100 ML IV ONE (11:00)
[2017-02-20] MEDS: DEXT 5%-NACL 0.45% 1000 ML INJ 1,000 ML IV SCH ×2 (11:21→20:37)
--- NOTE | 2017-02-20 12:12 | RADRPT ---
EXAM DATE/TIME: 02/20/2017 10:42 [place] COMPARISON: No previous studies available for comparison. INDICATIONS : Abdominal cramping. ORAL CONTRAST: No oral contrast ingested. RADIATION DOSE: 8.57 CTDIvol (mGy) MEDICAL HISTORY : Carcinoma, prostate. Hypertension. SURGICAL HISTORY : CABG Appendectomy.Prostatectomy. ENCOUNTER: Initial ACUITY: 1 day PAIN SCALE: 4/10 LOCATION: Bilateral lower quadrant TECHNIQUE: Volumetric scanning of the abdomen and pelvis was performed. Using automated exposure control and ad justment of the mA and/or kV according to patient size, radiation dose was kept as low as reasonably achievable to obtain optimal diagnostic quality images. FINDINGS: LOWER LUNGS: Bibasilar atelectatic changes, left greater than right. Granulomatous type calcifications in the left hilar lymph nodes with a punctate, subcentimeter calcification in the left upper lobe. Atherosclerot ic calcification of the coronary arteries. LIVER: Homogeneous density without lesion. There is no dilation of the biliary tree. Patient is status post cholecystectomy. SPLEEN: Punctate granulomatous type calcifications. No mass lesion. PANCREAS: Within normal limits. KIDNEYS: Normal in size and shape. There is no mass, stone, or hydronephrosis. ADRENAL GLANDS: Within normal limits. VASCULAR: There is no aortic aneurysm. BOWEL/MESENTERY: There is some stranding throughout the mesenteric leaves possibly representing some vascular congesti on or volume overload. There is also air distention of multiple small bowel loops with air-fluid leve ls and a transition point in the right lower abdominal quadrant in the region of the ilium concerning for at least a partial small bowel obstruction. There is still some air and fluid identified in the nondistended colon.. ABDOMINAL WALL: Within normal limits. RETROPERITONEUM: There is no lymphadenopathy. Multiple surgical clips along the iliac chains probably representing pre vious micaela dissection BLADDER: No wall thickening or mass. REPRODUCTIVE: Patient appears to be status post prostatectomy. There is a penile implant. INGUINAL: There is no lymphadenopathy or hernia. 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 Focal sclerosis at the tip of the coccyx as well. There is also asymmetric enlargement of the right iliac is muscle which may represent tumoral involv ement. CONCLUSION: 1. Air and fluid distention of multiple small bowel loops with a discrete transition in the right low er abdominal quadrant in the region of the ilium. Findings are concerning for at least a partial smal l bowel obstruction 2. 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 3. Asymmetric enlargement of the right iliac is muscle belly. This may be due to tumoral involvement. 4. Probable prostatectomy and iliac micaela dissection. 5. Bibasilar atelectatic changes. Old granulomatous disease. 6. Results were discussed with Dr. Easley at the time of this dictation. Haim Block MD on February 20, 2017 at 11:55 Board Certified Radiologist. This report was verified electronically.
[2017-02-20] MEDS ORDERED: PRED5TAB PO (13:35)
[2017-02-20] MEDS ORDERED: PRED2.5T PO (13:35)
[2017-02-20 13:58] LABS: AUTOMATED NEUTROPHIL # 9.6 TH/MM3 (1.8-7.7); BASOPHIL % 0.4 % (0.0-2.0); EOSINOPHIL % 0.1 % (0.0-4.0); HEMATOCRIT 37.4 % (39.0-51.0); HEMO FLAGS DIFF FINAL; LYMPH % 4.9 % (9.0-44.0); LYMPHOCYTE # 0.5 TH/MM3 (1.0-4.8); MEAN CELL VOLUME 94.6 FL (80.0-100.0); MEAN CORPUSCULAR HEMOGLOBIN 31.6 PG (27.0-34.0); MEAN CORPUSCULAR HGB CONC 33.5 % (32.0-36.0); MONO % 2.6 % (0.0-8.0); PLATELET COUNT 251 TH/MM3 (150-450); RED BLOOD COUNT 3.95 MIL/MM3 (4.50-5.90); RED CELL DISTRIBUTION WIDTH 13.7 % (11.6-17.2); WHITE BLOOD COUNT 10.4 TH/MM3 (4.0-11.0)
[2017-02-20] MEDS ORDERED: ALFU10TA2 PO (14:01)
--- NOTE | 2017-02-20 14:45 | PD.CONS ---
cc: Duarte Logan MD [facility] Service General Surgery Consult Requested By Dr. Mcrae Reason for Consult Abdominal pain; Partial small bowel obstruction Primary Care Physician [facility] History of Present Illness This is an 81-year-old male with a past medical history of hypertension, CAD and prostate cancer. The patient developed severe abdominal pain hours after eating frozen lasagna last night. The pain was a 8/10, constant, cramping, currently 6/10, located diffusely, better with lying still, worse with movement. She has never had this significant pain before. His also had the same dinner and has not experienced the same symptoms. The patient was brought to the emergency room via [facility]. A CT of the abdomen and pelvis was obtained which showed air and fluid in multiple small bowel loops and a questionable partial small bowel resection. A general surgery consultation has been requested for evaluation for a partial small bowel obstruction. Review of Systems Constitutional: DENIES: Fever, Weight gain, Weight loss Endocrine: DENIES: Polydipsia, Polyuria, Polyphagia Eyes: DENIES: Diplopia Ears, nose, mouth, throat: DENIES: Tinnitus Respiratory: DENIES: Cough, Snoring Cardiovascular: DENIES: Chest pain Gastrointestinal: COMPLAINS OF: Abdominal pain, Diarrhea, Nausea Genitourinary: COMPLAINS OF: Urinary frequency, DENIES: Urinary incontinence Musculoskeletal: DENIES: Joint pain Integumentary: DENIES: Abnormal pigmentation Hematologic/lymphatic: DENIES: Bruising Immunologic/allergic: DENIES: Eczema Neurologic: DENIES: Headache Psychiatric: DENIES: Mood changes, Depression, Hallucinations Past Family Social History Past Medical History Hypertension CAD Prostate cancer Past Surgical History Prostatectomy Cholecystectomy Appendectomy Reported Medications See chart Allergies: Coded Allergies: No Known Allergies (Unverified , 02/19/17) Active Ordered Medications Current Medications Medications (Trade) Dose Ordered Sig/Hamzah Route Start Time Stop Time Status Last Admin (NS Flush) 2 ml UNSCH PRN IV FLUSH 02/19/17 23:00 (NS Flush) 2 ml BID IV FLUSH 02/20/17 09:00 Naloxone HCl 0.4 mg 0.4 mg UNSCH PRN IV 02/19/17 23:00 Cefepime HCl 2000 mg/Sodium Chloride 100 ml @ 200 mls/hr Q12H IV 02/20/17 09:00 02/20/17 10:03 (Levophed-Dextrose Drip) 250 ml @ 0 mls/hr TITRATE IV 02/20/17 04:30 02/20/17 09:08 Terbutaline Sulfate 1 mg 1 mg UNSCH PRN SQ 02/20/17 04:30 (Vancomycin Consult Pharmacy) 0 ml @ 0 mls/hr UNSCH OTHER 02/20/17 04:30 (SoluCORTEF INJ) 100 mg Q8H IV PUSH 02/20/17 07:00 02/20/17 07:47 (Protonix Inj) 40 mg DAILY IV PUSH 02/20/17 09:00 02/20/17 07:48 Miscellaneous Information 1 Q361D XX 02/20/17 08:30 02/20/17 08:30 (Chlorhexidine 2% Cloth) 3 pack Taper DAILY@04 TOP 02/21/17 04:00 02/17/18 03:59 Chlorhexidine Gluconate 3 pack 3 pack UNSCH PRN TOP 02/20/17 08:30 Metronidazole 100 ml @ 100 mls/hr Q8H IV 02/20/17 10:00 02/20/17 11:20 (D5W-1/2 NS 1000 ml Inj) 1,000 ml @ 100 mls/hr Q10H IV 02/20/17 09:30 02/20/17 11:21 (D50w (Vial) Inj) 25 ml UNSCH PRN IV PUSH 02/20/17 09:30 (Glucagon Inj) 1 mg UNSCH PRN OTHER 02/20/17 09:30 (NovoLIN R SUPPLEMENTAL SCALE) 1 Q6H SQ 02/20/17 10:00 (Heparin Inj) 5,000 units Q12HR SQ 02/20/17 21:00 Family History Noncontributory Social History Past history of smoking Social drinker Denies illicit drug use Physical Exam Vital Signs Vital Signs Date Time Temp Pulse Resp B/P Pulse Ox O2 Delivery O2 Flow Rate FiO2 02/20/17 10:00 96 02/20/17 09:00 98.3 102 12 90/54 92 02/20/17 09:00 102 02/20/17 08:16 95/82 02/20/17 07:55 109 81/52 02/20/17 07:50 110 24 79/50 95 Nasal Cannula 2 02/20/17 07:26 82/50 02/20/17 07:11 Nasal Cannula 2 02/20/17 07:04 96.8 108 16 89/50 97 Nasal Cannula 2 02/20/17 06:52 110 18 110/56 94 Nasal Cannula 02/20/17 06:41 106 18 84/50 95 Nasal Cannula 2 02/20/17 06:30 110 20 82/53 94 Nasal Cannula 2 02/20/17 06:23 103 17 81/50 95 Nasal Cannula 2 02/20/17 06:16 107 18 81/49 93 Nasal Cannula 2 02/20/17 06:08 105 18 95/50 Nasal Cannula 2 02/20/17 05:50 107 18 87/52 95 Nasal Cannula 2 02/20/17 05:40 97.7 106 20 87/55 94 Nasal Cannula 2 02/20/17 05:17 105 17 85/46 95 Nasal Cannula 2 02/20/17 04:47 102 18 84/46 94 2 02/20/17 04:37 102 19 77/42 95 Nasal Cannula 2 02/20/17 04:36 103 18 68/44 95 Nasal Cannula 2 02/20/17 03:15 98.1 02/20/17 03:03 113 18 92/59 96 Nasal Cannula 2 02/20/17 02:08 112 17 92/54 92 Nasal Cannula 2 02/20/17 01:20 101.9 02/20/17 01:00 125 19 123/81 96 Nasal Cannula 2 02/20/17 00:00 102.4 123 20 113/58 96 Nasal Cannula 2 02/19/17 23:45 103.3 02/19/17 23:04 122 18 104/59 96 Nasal Cannula 2 02/19/17 22:00 102.8 127 21 102/51 96 Nasal Cannula 2 02/19/17 21:09 132 20 141/62 96 Nasal Cannula 2 02/19/17 20:05 101.4 02/19/17 19:59 97 Nasal Cannula 2 02/19/17 19:26 100.2 134 24 162/70 97 Physical Exam GENERAL: Elderly male resting in bed in no acute distress SKIN: Warm and dry. HEAD: Atraumatic. Normocephalic. EYES: Pupils equal and round. No scleral icterus. No injection or drainage. ENT: No nasal bleeding or discharge. Mucous membranes pink and moist. NECK: Trachea midline. CARDIOVASCULAR: Regular rate and rhythm. RESPIRATORY: No accessory muscle use. Clear to auscultation. Breath sounds equal bilaterally. GASTROINTESTINAL: Abdomen soft, nondistended; mild tenderness in the left side of abdomen; multiple healed scars. MUSCULOSKELETAL: Extremities without clubbing, cyanosis, or edema. No obvious deformities. NEUROLOGICAL: Awake and alert. No obvious cranial nerve deficits. Motor grossly within normal limits. Five out of 5 muscle strength in the arms and legs. Normal speech. PSYCHIATRIC: Appropriate mood and affect; insight and judgment normal. Laboratory Laboratory Tests Test 02/19/17 02/19/17 02/19/17 02/20/17 20:05 20:50 22:53 05:28 Prothrombin Time 11.4 Prothromb Time International 1.0 Ratio Activated Partial 27.4 Thromboplast Time Sodium Level 141 Potassium Level 3.6 Chloride Level 110 Carbon Dioxide Level 20.3 Anion Gap 11 Blood Urea Nitrogen 23 Creatinine 1.88 Estimat Glomerular Filtration 34 Rate Random Glucose 121 Lactic Acid Level 3.5 1.7 2.7 Calcium Level 8.4 Magnesium Level 1.8 Total Bilirubin 0.7 Aspartate Amino Transf 20 (AST/SGOT) Alanine Aminotransferase 17 (ALT/SGPT) Alkaline Phosphatase 99 Total Creatine Kinase 72 Troponin I 0.03 B-Type Natriuretic Peptide 175 Total Protein 7.0 Albumin 3.3 Lipase 171 White Blood Count 8.4 Red Blood Count 4.49 Hemoglobin 14.7 Hematocrit 42.5 Mean Corpuscular Volume 94.6 Mean Corpuscular Hemoglobin 32.8 Mean Corpuscular Hemoglobin 34.7 Concent Red Cell Distribution Width 13.4 Platelet Count 245 Mean Platelet Volume 8.5 Neutrophils (%) (Auto) 82.0 Lymphocytes (%) (Auto) 8.9 Monocytes (%) (Auto) 7.3 Eosinophils (%) (Auto) 1.4 Basophils (%) (Auto) 0.4 Neutrophils # (Auto) 6.9 Lymphocytes # (Auto) 0.7 Monocytes # (Auto) 0.6 Eosinophils # (Auto) 0.1 Basophils # (Auto) 0.0 CBC Comment DIFF FINAL Differential Comment Urine Color YELLOW Urine Turbidity HAZY Urine pH 5.0 Urine Specific [place] 1.012 Urine Protein 30 Urine Glucose (UA) NEG Urine Ketones NEG Urine Occult Blood SMALL Urine Nitrite NEG Urine Bilirubin NEG Urine Urobilinogen LESS THAN 2.0 Urine Leukocyte Esterase MOD Urine RBC 6 Urine WBC 10 Urine Squamous Epithelial <1 Cells Urine Amorphous Sediment RARE Urine Bacteria MOD Urine Mucus FEW Microscopic Urinalysis Comment CATH-CULTURE IND Test 02/20/17 02/20/17 02/20/17 02/20/17 06:40 07:55 08:35 09:00 White Blood Count 8.2 Red Blood Count 4.05 Hemoglobin 13.0 Hematocrit 38.3 Mean Corpuscular Volume 94.4 Mean Corpuscular Hemoglobin 32.1 Mean Corpuscular Hemoglobin 34.0 Concent Red Cell Distribution Width 13.8 Platelet Count 261 Mean Platelet Volume 9.2 Neutrophils (%) (Auto) 77.6 Lymphocytes (%) (Auto) 12.6 Monocytes (%) (Auto) 5.1 Eosinophils (%) (Auto) 3.7 Basophils (%) (Auto) 1.0 Neutrophils # (Auto) 6.4 Lymphocytes # (Auto) 1.0 Monocytes # (Auto) 0.4 Eosinophils # (Auto) 0.3 Basophils # (Auto) 0.1 CBC Comment DIFF FINAL Differential Comment Sodium Level 147 Potassium Level 3.1 Chloride Level 120 Carbon Dioxide Level 15.2 Anion Gap 12 Blood Urea Nitrogen 24 Creatinine 1.93 Estimat Glomerular Filtration 33 Rate Random Glucose 93 Calcium Level 7.1 Protein Corrected Calcium 8.1 Total Protein 5.3 Lactic Acid Level 2.2 Nasal Screen MRSA (PCR) NEGATIVE Test 02/20/17 02/20/17 10:15 13:25 Blood Gas Puncture Site RT RADIAL Blood Gas Patient Temperature 98.6 Blood Gas HCO3 15 Blood Gas Base Excess -8.8 Blood Gas Oxygen Saturation 93 Arterial Blood pH 7.41 Arterial Blood Partial 24 Pressure CO2 Arterial Blood Partial 82 Pressure O2 Arterial Blood Oxygen Content 15.6 Arterial Blood 0.2 Carboxyhemoglobin Arterial Blood Methemoglobin 1.3 Blood Gas Hemoglobin 11.9 Oxygen Delivery Device NASAL CANNULA Blood Gas Liter Flow 6 White Blood Count 10.4 Red Blood Count 3.95 Hemoglobin 12.5 Hematocrit 37.4 Mean Corpuscular Volume 94.6 Mean Corpuscular Hemoglobin 31.6 Mean Corpuscular Hemoglobin 33.5 Concent Red Cell Distribution Width 13.7 Platelet Count 251 Mean Platelet Volume 8.5 Neutrophils (%) (Auto) 92.0 Lymphocytes (%) (Auto) 4.9 Monocytes (%) (Auto) 2.6 Eosinophils (%) (Auto) 0.1 Basophils (%) (Auto) 0.4 Neutrophils # (Auto) 9.6 Lymphocytes # (Auto) 0.5 Monocytes # (Auto) 0.3 Eosinophils # (Auto) 0.0 Basophils # (Auto) 0.0 CBC Comment DIFF FINAL Differential Comment Date/Time Procedure Status Source Growth 02/19/17 20:50 Urine Culture - Preliminary Resulted Urine Catheterized Urine Gram Negative Jacob 02/19/17 20:50 Influenza Types A,B Antigen (CESAR) - Final Complete Nasal Washing NEGATIVE FOR FLU A AND B ANTIGEN.... 02/19/17 20:05 Aerobic Blood Culture - Preliminary Resulted Blood Peripheral NO GROWTH IN 1 DAY 02/19/17 20:05 Anaerobic Blood Culture - Preliminary Resulted Blood Peripheral NO GROWTH IN 1 DAY Imaging Last 48 hours Impressions Abdomen/Pelvis CT 02/20/17 0000 Signed Impressions: Service Date/Time: Monday, February 20, 2017 10:42 - CONCLUSION: 1. Air and fluid distention of multiple small bowel loops with a discrete transition in the right lower abdominal quadrant in the region of the ilium. Findings are concerning for at least a partial small bowel obstruction 2. 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 3. Asymmetric enlargement of the right iliac is muscle belly. This may be due to tumoral involvement. 4. Probable prostatectomy and iliac micaela dissection. 5. Bibasilar atelectatic changes. Old granulomatous disease. 6. Results were discussed with Dr. Easley at the time of this dictation. Haim Block MD Head CT 02/19/171954 Signed Impressions: Service Date/Time: January 20:19 - CONCLUSION: 1. No acute intracranial abnormalities. Sai Markham MD Chest X-Ray 02/19/171954 Signed Impressions: Service Date/Time: January 20:05 - CONCLUSION: 1. Linear atelectasis or scarring at the lung bases. No effusion or pneumothorax. Sai Markham MD Assessment and Plan Assessment and Plan 81-year-old male with abdominal pain and partial small bowel obstruction Nothing by mouth; okay for a few ice chips KUB in the a.m. Monitor lab Insert NG tube for any nausea or vomiting We'll attempt nonoperative treatment at this time Discussed with patient and who is at the bedside Discussed with Dr. Logan Thank you for allowing us to participate in Mr. Rutherford's care General surgery will follow though the hospital course Discussed Condition With Dr. Logan . and Mrs. Rutherford Attending Statement Pt with SBO and abdominal pain attempt non operative mgnt at this point AXR in am serial abdominal pain patient seen and discussed with patient at bedside Attestation The exam, history, and the medical decision-making described in the above note were completed with the assistance of the mid-level provider. I reviewed and agree with the findings presented. I attest that I had a [id number] encounter with the patient on the same day, and personally performed and documented my assessment and findings in the medical record. Siria Ornelas Feb 20, 2017 14:45 Duarte Logan MD Mar 14, 2017 14:03
[2017-02-20 14:50] LABS: BICARBONATE 15.9 MEQ/L (21.0-32.0); POTASSIUM 4.3 MEQ/L (3.5-5.1)
[2017-02-20 15:05] LABS: CALCIUM-PROTEIN CORRECTED 7.8 MG/DL (8.5-10.1)
--- NOTE | 2017-02-20 15:08 | PD.ID.CON ---
History of Present Illness Service ID Consult Requested By Dr Monte Reason for Consult septic shock Primary Care Physician [facility] Diagnoses: History of Present Illness 81 yo male pt with metastatic prostate ca (bone mets) and multiple prior abd procedures (prostatectomy, cholecystectomy, appendectomy ) developped vomiting , diarrhea and abdominal cramps 2 hrs after he ate some frozen food He presented with a fever up to 103.3 and leukocytosis (left shift) His CT showed Air and fluid distention of multiple small bowel loops with a discrete transition in the right lower abdominal quadrant in the region of the ilium, concerning for at least a partial small bowel obstruction UA was abnormal with some excess of WBC and urine clx is now growing a GNB Pt is on 18 mcgs of Levaphed He has no vomiting and/or diarrhea and his cramps are minimal Review of Systems Constitutional: COMPLAINS OF: Fever Gastrointestinal: COMPLAINS OF: Abdominal pain, Diarrhea, Nausea, Vomiting Genitourinary: COMPLAINS OF: Urinary incontinence Except as stated in HPI: all other systems reviewed are Neg Past Family Social History Allergies: Coded Allergies: No Known Allergies (Unverified , 02/19/17) Past Medical History metastatic prostate CA CAD HTN Past Surgical History prostatectomy, cholecystectomy, appendectomy, orchiectomy cardiac stents Active Ordered Medications Medications where reviewed in EMR Antibiotics Include: cefepime flagyl vancomycin Family History Non-Contributory. Social History remote Tobacco. social ETOH. No Illicit Drugs. Physical Exam Vital Signs Vital Signs Date Time Temp Pulse Resp B/P Pulse Ox O2 Delivery O2 Flow Rate FiO2 02/20/17 14:00 95 02/20/17 12:00 98.3 95 21 106/60 97 02/20/17 12:00 95 02/20/17 10:00 96 02/20/17 10:00 96 02/20/17 09:00 102 02/20/17 09:00 98.3 102 12 90/54 92 02/20/17 09:00 102 02/20/17 08:16 95/82 02/20/17 07:55 109 81/52 02/20/17 07:50 110 24 79/50 95 Nasal Cannula 2 02/20/17 07:26 82/50 02/20/17 07:11 Nasal Cannula 2 02/20/17 07:04 96.8 108 16 89/50 97 Nasal Cannula 2 02/20/17 06:52 110 18 110/56 94 Nasal Cannula 02/20/17 06:41 106 18 84/50 95 Nasal Cannula 2 02/20/17 06:30 110 20 82/53 94 Nasal Cannula 2 02/20/17 06:23 103 17 81/50 95 Nasal Cannula 2 02/20/17 06:16 107 18 81/49 93 Nasal Cannula 2 02/20/17 06:08 105 18 95/50 Nasal Cannula 2 02/20/17 05:50 107 18 87/52 95 Nasal Cannula 2 02/20/17 05:40 97.7 106 20 87/55 94 Nasal Cannula 2 02/20/17 05:17 105 17 85/46 95 Nasal Cannula 2 02/20/17 04:47 102 18 84/46 94 2 02/20/17 04:37 102 19 77/42 95 Nasal Cannula 2 02/20/17 04:36 103 18 68/44 95 Nasal Cannula 2 02/20/17 03:15 98.1 02/20/17 03:03 113 18 92/59 96 Nasal Cannula 2 02/20/17 02:08 112 17 92/54 92 Nasal Cannula 2 02/20/17 01:20 101.9 02/20/17 01:00 125 19 123/81 96 Nasal Cannula 2 02/20/17 00:00 102.4 123 20 113/58 96 Nasal Cannula 2 02/19/17 23:45 103.3 02/19/17 23:04 122 18 104/59 96 Nasal Cannula 2 02/19/17 22:00 102.8 127 21 102/51 96 Nasal Cannula 2 02/19/17 21:09 132 20 141/62 96 Nasal Cannula 2 02/19/17 20:05 101.4 02/19/17 19:59 97 Nasal Cannula 2 02/19/17 19:26 100.2 134 24 162/70 97 Physical Exam CONSTITUTIONAL/GENERAL: This is an adequately nourished patient, in no apparent distress. TUBES/LINES/DRAINS: SKIN: No jaundice, rashes, or lesions. Ecchymoses on upper extremities. No wounds seen anteriorly. Skin temperature appropriate. Not diaphoretic. HEAD: Atraumatic. Normocephalic. EYES: Pupils equal and round and reactive. Extraocular motions intact. No scleral icterus. No injection or drainage. Fundi not examined. ENT: Hearing grossly normal. Nose without bleeding or purulent drainage. Oral mucoase moist without visible erythema, exudates, masses, or lesions. NECK: Trachea midline. Supple, nontender. No palpable thyroid enlargement or nodularity. CARDIOVASCULAR: Regular rate and rhythm without murmurs, gallops, or rubs. No JVD. Peripheral pulses symmetric. Diminished perfusion BL feet, feet are cold, delayed refill Hands,fingers warm RESPIRATORY/CHEST: Symmetric, unlabored respirations. Clear to auscultation. Breath sounds equal bilaterally. No wheezes, rales, or rhonchi. GASTROINTESTINAL: Abdomen soft, non-tender,mildly distended; + tympanic to percussion . No hepato-splenomegaly, or palpable masses. No guarding. Bowel sounds present. GENITOURINARY: Without palpable bladder distension. Galvez catheter in place with clear ellow urine MUSCULOSKELETAL: Extremities without clubbing, cyanosis, or edema. No joint tenderness or effusion noted. No calf tenderness. No mottling or clubbing. LYMPHATICS: No palpable cervical or supraclavicular adenopathy. NEUROLOGICAL: Awake and alert. Motor and sensory grossly within normal limits. Follows commands. NOrmal speech . Moves all extremities. PSYCHIATRIC: No obvious anxiety/depression. no apparent hallucinations or other psychotic thought process. Laboratory Laboratory Tests Test 02/19/17 02/19/17 02/19/17 02/20/17 20:05 20:50 22:53 05:28 Prothrombin Time 11.4 Prothromb Time International 1.0 Ratio Activated Partial 27.4 Thromboplast Time Sodium Level 141 Potassium Level 3.6 Chloride Level 110 Carbon Dioxide Level 20.3 Anion Gap 11 Blood Urea Nitrogen 23 Creatinine 1.88 Estimat Glomerular Filtration 34 Rate Random Glucose 121 Lactic Acid Level 3.5 1.7 2.7 Calcium Level 8.4 Magnesium Level 1.8 Total Bilirubin 0.7 Aspartate Amino Transf 20 (AST/SGOT) Alanine Aminotransferase 17 (ALT/SGPT) Alkaline Phosphatase 99 Total Creatine Kinase 72 Troponin I 0.03 B-Type Natriuretic Peptide 175 Total Protein 7.0 Albumin 3.3 Lipase 171 White Blood Count 8.4 Red Blood Count 4.49 Hemoglobin 14.7 Hematocrit 42.5 Mean Corpuscular Volume 94.6 Mean Corpuscular Hemoglobin 32.8 Mean Corpuscular Hemoglobin 34.7 Concent Red Cell Distribution Width 13.4 Platelet Count 245 Mean Platelet Volume 8.5 Neutrophils (%) (Auto) 82.0 Lymphocytes (%) (Auto) 8.9 Monocytes (%) (Auto) 7.3 Eosinophils (%) (Auto) 1.4 Basophils (%) (Auto) 0.4 Neutrophils # (Auto) 6.9 Lymphocytes # (Auto) 0.7 Monocytes # (Auto) 0.6 Eosinophils # (Auto) 0.1 Basophils # (Auto) 0.0 CBC Comment DIFF FINAL Differential Comment Urine Color YELLOW Urine Turbidity HAZY Urine pH 5.0 Urine Specific Mccoll 1.012 Urine Protein 30 Urine Glucose (UA) NEG Urine Ketones NEG Urine Occult Blood SMALL Urine Nitrite NEG Urine Bilirubin NEG Urine Urobilinogen LESS THAN 2.0 Urine Leukocyte Esterase MOD Urine RBC 6 Urine WBC 10 Urine Squamous Epithelial <1 Cells Urine Amorphous Sediment RARE Urine Bacteria MOD Urine Mucus FEW Microscopic Urinalysis Comment CATH-CULTURE IND Test 02/20/17 02/20/17 02/20/17 02/20/17 06:40 07:55 08:35 09:00 White Blood Count 8.2 Red Blood Count 4.05 Hemoglobin 13.0 Hematocrit 38.3 Mean Corpuscular Volume 94.4 Mean Corpuscular Hemoglobin 32.1 Mean Corpuscular Hemoglobin 34.0 Concent Red Cell Distribution Width 13.8 Platelet Count 261 Mean Platelet Volume 9.2 Neutrophils (%) (Auto) 77.6 Lymphocytes (%) (Auto) 12.6 Monocytes (%) (Auto) 5.1 Eosinophils (%) (Auto) 3.7 Basophils (%) (Auto) 1.0 Neutrophils # (Auto) 6.4 Lymphocytes # (Auto) 1.0 Monocytes # (Auto) 0.4 Eosinophils # (Auto) 0.3 Basophils # (Auto) 0.1 CBC Comment DIFF FINAL Differential Comment Sodium Level 147 Potassium Level 3.1 Chloride Level 120 Carbon Dioxide Level 15.2 Anion Gap 12 Blood Urea Nitrogen 24 Creatinine 1.93 Estimat Glomerular Filtration 33 Rate Random Glucose 93 Calcium Level 7.1 Protein Corrected Calcium 8.1 Total Protein 5.3 Lactic Acid Level 2.2 Nasal Screen MRSA (PCR) NEGATIVE Test 02/20/17 02/20/17 10:15 13:25 Blood Gas Puncture Site RT RADIAL Blood Gas Patient Temperature 98.6 Blood Gas HCO3 15 Blood Gas Base Excess -8.8 Blood Gas Oxygen Saturation 93 Arterial Blood pH 7.41 Arterial Blood Partial 24 Pressure CO2 Arterial Blood Partial 82 Pressure O2 Arterial Blood Oxygen Content 15.6 Arterial Blood 0.2 Carboxyhemoglobin Arterial Blood Methemoglobin 1.3 Blood Gas Hemoglobin 11.9 Oxygen Delivery Device NASAL CANNULA Blood Gas Liter Flow 6 White Blood Count 10.4 Red Blood Count 3.95 Hemoglobin 12.5 Hematocrit 37.4 Mean Corpuscular Volume 94.6 Mean Corpuscular Hemoglobin 31.6 Mean Corpuscular Hemoglobin 33.5 Concent Red Cell Distribution Width 13.7 Platelet Count 251 Mean Platelet Volume 8.5 Neutrophils (%) (Auto) 92.0 Lymphocytes (%) (Auto) 4.9 Monocytes (%) (Auto) 2.6 Eosinophils (%) (Auto) 0.1 Basophils (%) (Auto) 0.4 Neutrophils # (Auto) 9.6 Lymphocytes # (Auto) 0.5 Monocytes # (Auto) 0.3 Eosinophils # (Auto) 0.0 Basophils # (Auto) 0.0 CBC Comment DIFF FINAL Differential Comment Sodium Level 146 Potassium Level 4.3 Chloride Level 121 Carbon Dioxide Level 15.9 Anion Gap 9 Blood Urea Nitrogen 24 Creatinine 1.78 Estimat Glomerular Filtration 37 Rate Random Glucose 176 Calcium Level 6.7 Protein Corrected Calcium 7.8 Total Protein 5.0 Date/Time Procedure Status Source Growth 02/19/17 20:50 Urine Culture - Preliminary Resulted Urine Catheterized Urine Gram Negative Jacob 02/19/17 20:50 Influenza Types A,B Antigen (CESAR) - Final Complete Nasal Washing NEGATIVE FOR FLU A AND B ANTIGEN.... 02/19/17 20:05 Aerobic Blood Culture - Preliminary Resulted Blood Peripheral NO GROWTH IN 1 DAY 02/19/17 20:05 Anaerobic Blood Culture - Preliminary Resulted Blood Peripheral NO GROWTH IN 1 DAY Result Diagram: 02/20/17 1325 02/20/17 1325 Imaging Last Impressions Abdomen/Pelvis CT 02/20/17 0000 Signed Impressions: Service Date/Time: Monday, February 20, 2017 10:42 - CONCLUSION: 1. Air and fluid distention of multiple small bowel loops with a discrete transition in the right lower abdominal quadrant in the region of the ilium. Findings are concerning for at least a partial small bowel obstruction 2. 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 3. Asymmetric enlargement of the right iliac is muscle belly. This may be due to tumoral involvement. 4. Probable prostatectomy and iliac micaela dissection. 5. Bibasilar atelectatic changes. Old granulomatous disease. 6. Results were discussed with Dr. Easley at the time of this dictation. Haim Block MD Head CT 02/19/171954 Signed Impressions: Service Date/Time: January 20:19 - CONCLUSION: 1. No acute intracranial abnormalities. Sai Markham MD Chest X-Ray 02/19/171954 Signed Impressions: Service Date/Time: January 20:05 - CONCLUSION: 1. Linear atelectasis or scarring at the lung bases. No effusion or pneumothorax. Sai Markham MD Assessment and Plan Assessment and Plan Sepsis, septic shock - most likley source is UTI with sepsis vs intraabdominal 2/2 SBO - clinically unstable Lactic acidosis Fever ARF - 2/2 sepsis Small bowell obstruction - sx ff; recommended nonoperative treatment at this time UTI, GNB Know metastaatic prostate Ca H/o prostatectomy - cont vancomycin for now - dc flagyl, cefepime -start zosyn - fu urine and blood clx untill final - fu clinically Discussed Condition With Dr Lavell Mcdonnell,Stefani Green MD Feb 20, 2017 15:08
[2017-02-20] MEDS: PIPERACIL-TAZO 3.375 GM PREMIX 50 ML IV SCH ×2 (15:56→20:36)
[2017-02-20] MEDS: HEPARIN SODIUM - SQ 10,000 UNITS/ML VIAL SQ SCH (20:36)
[2017-02-21] VITALS (13 sets, daily range): BP systolic 109–133; BP diastolic 59–76; PULSE 87–99; RESP 20–36; TEMP 97.8–99; O2SAT 97–100
[2017-02-21 00:25] LABS: C. DIFF EPI 027 PRESUMPTIVE NEGATIVE (NEGATIVE); C. DIFF TOXIN PCR NEGATIVE (NEGATIVE)
[2017-02-21] MEDS: INSULIN NovoLIN REGULAR SUPPLEMENTAL SCALE SQ SCH ×5 (03:23→20:57)
[2017-02-21] MEDS: CHLORHEXIDINE GLUCONATE 2 % 1 PACK (2 CLOTHS) TOP SCH (03:23)
[2017-02-21] MEDS: PIPERACIL-TAZO 3.375 GM PREMIX 50 ML IV SCH ×4 (03:23→20:57)
[2017-02-21] MEDS: DEXT 5%-NACL 0.45% 1000 ML INJ 1,000 ML IV SCH ×2 (03:24→08:30)
[2017-02-21 04:42] LABS: AUTOMATED NEUTROPHIL # 10.4 TH/MM3 (1.8-7.7); BASOPHIL % 0.2 % (0.0-2.0); HEMATOCRIT 32.6 % (39.0-51.0); HEMO FLAGS DIFF FINAL; LYMPH % 4.1 % (9.0-44.0); LYMPHOCYTE # 0.5 TH/MM3 (1.0-4.8); MEAN CELL VOLUME 93.6 FL (80.0-100.0); MEAN CORPUSCULAR HEMOGLOBIN 31.8 PG (27.0-34.0); MONO % 2.6 % (0.0-8.0); NEUT % 93.1 % (16.0-70.0); PLATELET COUNT 189 TH/MM3 (150-450); RED BLOOD COUNT 3.49 MIL/MM3 (4.50-5.90); WHITE BLOOD COUNT 11.1 TH/MM3 (4.0-11.0)
--- NOTE | 2017-02-21 04:53 | RADRPT ---
EXAM DATE/TIME: 02/21/2017 03:24 [place] COMPARISON: CT ABDOMEN & PELVIS W/O CONTRAST, February 20, 2017, 10:42. INDICATIONS : Abdominal pain. MEDICAL HISTORY : Carcinoma, prostatic. Hypertension SURGICAL HISTORY : Appendectomy. CABG. Prostatectomy. ENCOUNTER: Subsequent ACUITY: 2 days PAIN SCORE: 1/10 LOCATION: Bilateral lower quadrant Abdomen FINDINGS: A single supine frontal view of the abdomen shows considerable reduction in size of the previously se en dilated loops of gas filled small bowel. No dilated loops of bowel appreciated on the current stud y. Sclerotic changes involving the right iliac wing again noted. CONCLUSION: 1. Resolution of the previously seen dilated small bowel. 2. Sclerotic metastasis involving the right pelvis. Christopher Saldana Jr., MD on February 21, 2017 at 4:49 Board Certified Radiologist. This report was verified electronically.
[2017-02-21 05:13] LABS: BICARBONATE 16.1 MEQ/L (21.0-32.0); POTASSIUM 3.5 MEQ/L (3.5-5.1)
[2017-02-21 05:46] LABS: CALCIUM-PROTEIN CORRECTED 7.8 MG/DL (8.5-10.1)
[2017-02-21] MEDS: HYDROCORTISONE SOD SUCCINATE 100 MG VIAL IV PUSH SCH ×3 (05:54→18:35)
--- NOTE | 2017-02-21 08:25 | HHI.CCPN ---
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 He presented to the [facility] ED last night with a history of intractable nausea and vomiting x1 day and altered mental status. On arrival to the ED the patient had a fever with a T-max of 103.3 and early this morning he became hypotensive with a systolic blood pressure in the 70s to 80s. The patient was given approximately four liters of crystalloids and was initially admitted under the hospitalist service. His initial laboratory data from last night showed renal failure with creatinine of 1.88 and elevated lactic acid level of 3.5. There was no evidence of any leukocytosis. CT scan of the brain was obtained which showed no acute intracranial abnormality and a chest x-ray in the ER showed linear atelectasis / scarring at the lung bases. He was given vancomycin and cefepime. Due to persistent hypotension the patient was started on Levophed which is currently at 20 mcg and a right femoral central line was placed by the ED physician. His labs from this morning showed worsening renal function with creatinine level of 1.93. Urinalysis showed moderate leukocyte esterase, 10 wbc 's, moderate bacteria. He denies any chest pain, shortness of breath or abdominal pain, however, he reports intermittent abdominal cramps associated with his nausea and vomiting. The patient states that he had homemade frozen food and shortly after he developed his nausea and vomiting along with diarrhea. The patient just finished a seven-day course of antibiotics for a bladder infection. The patient denies any orthopnea, PND or edema of the lower extremities. 02/21 Patient is off Levophed. Awake and alert afebrile. KUB from this morning showed resolution of previously seen dilated small bowel. Objective Vital Signs Date Time Temp Pulse Resp B/P Pulse Ox O2 Delivery O2 Flow Rate FiO2 02/21/17 06:00 89 02/21/17 04:00 98.2 23 109/61 100 02/20/17 19:35 Nasal Cannula 2.00 Intake and Output 02/20/17 02/20/17 02/21/17 08:00 16:00 00:00 Intake Total 2793 ml 819 ml Output Total 900 ml 725 ml Balance 1893 ml 94 ml Result Diagram: 02/21/17 0330 02/21/17 0330 Other Results Laboratory Tests Test 02/20/17 02/20/17 02/20/17 02/20/17 08:35 09:00 10:15 13:25 Lactic Acid Level 2.2 mmol/L Nasal Screen MRSA (PCR) NEGATIVE Blood Gas Puncture Site RT RADIAL Blood Gas Patient Temperature 98.6 Blood Gas HCO3 15 mmol/L Blood Gas Base Excess -8.8 mmol/L Blood Gas Oxygen Saturation 93 % Arterial Blood pH 7.41 Arterial Blood Partial 24 mmHg Pressure CO2 Arterial Blood Partial 82 mmHg Pressure O2 Arterial Blood Oxygen Content 15.6 Vol % Arterial Blood 0.2 % Carboxyhemoglobin Arterial Blood Methemoglobin 1.3 % Blood Gas Hemoglobin 11.9 G/DL Oxygen Delivery Device NASAL CANNULA Blood Gas Liter Flow 6 L/M White Blood Count 10.4 TH/MM3 Red Blood Count 3.95 MIL/MM3 Hemoglobin 12.5 GM/DL Hematocrit 37.4 % Mean Corpuscular Volume 94.6 FL Mean Corpuscular Hemoglobin 31.6 PG Mean Corpuscular Hemoglobin 33.5 % Concent Red Cell Distribution Width 13.7 % Platelet Count 251 TH/MM3 Mean Platelet Volume 8.5 FL Neutrophils (%) (Auto) 92.0 % Lymphocytes (%) (Auto) 4.9 % Monocytes (%) (Auto) 2.6 % Eosinophils (%) (Auto) 0.1 % Basophils (%) (Auto) 0.4 % Neutrophils # (Auto) 9.6 TH/MM3 Lymphocytes # (Auto) 0.5 TH/MM3 Monocytes # (Auto) 0.3 TH/MM3 Eosinophils # (Auto) 0.0 TH/MM3 Basophils # (Auto) 0.0 TH/MM3 CBC Comment DIFF FINAL Differential Comment Sodium Level 146 MEQ/L Potassium Level 4.3 MEQ/L Chloride Level 121 MEQ/L Carbon Dioxide Level 15.9 MEQ/L Anion Gap 9 MEQ/L Blood Urea Nitrogen 24 MG/DL Creatinine 1.78 MG/DL Estimat Glomerular Filtration 37 ML/MIN Rate Random Glucose 176 MG/DL Calcium Level 6.7 MG/DL Protein Corrected Calcium 7.8 MG/DL Total Protein 5.0 GM/DL Test 02/20/17 02/21/17 21:45 03:30 Stool C. difficile Toxin (PCR) NEGATIVE Stl C. difficile Toxin PRESUMPTIVE Epiderm 027 NEGATIVE White Blood Count 11.1 TH/MM3 Red Blood Count 3.49 MIL/MM3 Hemoglobin 11.1 GM/DL Hematocrit 32.6 % Mean Corpuscular Volume 93.6 FL Mean Corpuscular Hemoglobin 31.8 PG Mean Corpuscular Hemoglobin 34.0 % Concent Red Cell Distribution Width 14.0 % Platelet Count 189 TH/MM3 Mean Platelet Volume 8.6 FL Neutrophils (%) (Auto) 93.1 % Lymphocytes (%) (Auto) 4.1 % Monocytes (%) (Auto) 2.6 % Eosinophils (%) (Auto) 0.0 % Basophils (%) (Auto) 0.2 % Neutrophils # (Auto) 10.4 TH/MM3 Lymphocytes # (Auto) 0.5 TH/MM3 Monocytes # (Auto) 0.3 TH/MM3 Eosinophils # (Auto) 0.0 TH/MM3 Basophils # (Auto) 0.0 TH/MM3 CBC Comment DIFF FINAL Differential Comment Sodium Level 148 MEQ/L Potassium Level 3.5 MEQ/L Chloride Level 121 MEQ/L Carbon Dioxide Level 16.1 MEQ/L Anion Gap 11 MEQ/L Blood Urea Nitrogen 22 MG/DL Creatinine 1.72 MG/DL Estimat Glomerular Filtration 38 ML/MIN Rate Random Glucose 227 MG/DL Calcium Level 6.7 MG/DL Protein Corrected Calcium 7.8 MG/DL Total Protein 4.9 GM/DL Random Vancomycin Level 4.6 COMMENT Imaging Last Impressions Abdomen X-Ray 02/21/17 0000 Signed Impressions: Service Date/Time: Tuesday, February 21, 2017 03:24 - CONCLUSION: 1. Resolution of the previously seen dilated small bowel. 2. Sclerotic metastasis involving the right pelvis. Christopher Saldana Jr., MD Abdomen/Pelvis CT 02/20/17 0000 Signed Impressions: Service Date/Time: Monday, February 20, 2017 10:42 - CONCLUSION: 1. Air and fluid distention of multiple small bowel loops with a discrete transition in the right lower abdominal quadrant in the region of the ilium. Findings are concerning for at least a partial small bowel obstruction 2. 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 3. Asymmetric enlargement of the right iliac is muscle belly. This may be due to tumoral involvement. 4. Probable prostatectomy and iliac micaela dissection. 5. Bibasilar atelectatic changes. Old granulomatous disease. 6. Results were discussed with Dr. Easley at the time of this dictation. Haim Block MD Head CT 02/19/171954 Signed Impressions: Service Date/Time: January 20:19 - CONCLUSION: 1. No acute intracranial abnormalities. Sai Markham MD Chest X-Ray 02/19/171954 Signed Impressions: Service Date/Time: January 20:05 - CONCLUSION: 1. Linear atelectasis or scarring at the lung bases. No effusion or pneumothorax. Sai Markham MD Objective Remarks GENERAL: Patient is 81 yo lying in be din NAD SKIN: Warm and dry. HEAD: Normocephalic. EYES: No scleral icterus. No injection or drainage. NECK: Supple, trachea midline. No JVD or lymphadenopathy. CARDIOVASCULAR: Regular rate and rhythm without murmurs, gallops, or rubs. RESPIRATORY: Breath sounds equal bilaterally. No accessory muscle use. GASTROINTESTINAL: Abdomen soft, non-tender, nondistended. MUSCULOSKELETAL: No cyanosis, or edema. Neuro: Awake an alert A/P Assessment and Plan 1. Resp Insuff 2. Intractable nausea and vomiting. 3. Lactic acidemia..resolving 4. Acute renal failure..improving 5. Urinary tract infection. 6. Hypernatremia. 7. Partial SBO 8. History of hypertension. 9. History of coronary artery disease. 10.History of prostate CA with bone mets. Plan Neuro: Monitor neuro status closely and avoid any sedatives. CT brain in the ED showed no acute intracranial abnormality. Pulm: Continue with oxygen and maintain sats above 92%. Bronchodilators CV: Off Levophed, monitor heart rate and BP and maintain MAP > 65 mmHg. Lactic acid 2.2 yesterday from 2.7 Taper stress dose steroids- Decrease HC 50mg IV Q6 : Monitor renal function, I's and O's, and electrolyte replacement as needed. Avoid nephrotoxins. Change IVF D5W@50ml/hr GI: NPO, on Protonix 40 mg IV daily for GI prophylaxis. Surgery on case for partial SBO. KUB this morning shoed resolution of previously seen dilated bowel. Advance diet if ok with surgery ID: Continue with abx per ID ( Zosyn, Vanco) monitor for signs of infections ( Fever, WBC) nasal washing for influenza is negative. C. diff PCR negative. 02/19 urine cx: GNR Endo: Change SSI to medium scale GI prophylaxis with Protonix 40 mg daily. DVT prophylaxis with heparin subcu. Lines: right femoral central line was placed by the ED physician 02/20 Will d/c femoral line and place peripheral IV's Level 3 Paul Easley MD Feb 21, 2017 08:25
[2017-02-21] MEDS: HEPARIN SODIUM - SQ 10,000 UNITS/ML VIAL SQ SCH ×2 (08:30→20:57)
[2017-02-21] MEDS: PANTOPRAZOLE SODIUM 40 MG VIAL IV PUSH SCH (08:30)
[2017-02-21] MEDS ORDERED: DEXTROSE 50% IN WATER 50 ML VIAL(D50) IV PUSH PRN (08:30)
[2017-02-21] MEDS ORDERED: GLUCAGON 1 MG/ML VIAL OTHER PRN (08:30)
[2017-02-21] MEDS: SODIUM CHLORIDE 0.9% FLUSH 10 ML FLUSH IV FLUSH SCH ×2 (08:31→20:58)
[2017-02-21] MEDS ORDERED: CALCIUM GLUCONATE INJ 1 GM in SODIUM CHLORIDE 0.9% INJ 100 ML IV ONE (10:00)
[2017-02-21] MEDS: DEXTROSE 5% IN WATE 1000ML INJ 1,000 ML IV SCH (10:11)
--- NOTE | 2017-02-21 11:11 | EKG ---
Date Performed: 02/19/2017 Time Performed: 19:56:44 PTAGE: 81 years EKG: SINUS TACHYCARDIA ABNORMAL RHYTHM ECG NO PREVIOUS TRACING DOCTOR: Lolis Camacho Interpretating Date/Time 02/21/2017 11:07:43
[2017-02-21] MEDS ORDERED: VANCOMYCIN 1,000 MG/NS 250 ML IV SCH ×2 (12:00)
--- NOTE | 2017-02-21 12:17 | HHI.PR ---
Subjective Subjective Notes feels better, had rectal tube inserted for liquid BMs, very little pain, no nausea, wants to eat. Objective Vitals/I&O Vital Signs Date Time Temp Pulse Resp B/P Pulse Ox O2 Delivery O2 Flow Rate FiO2 02/21/17 10:00 93 02/21/17 08:00 97.8 36 123/67 98 02/20/17 19:35 Nasal Cannula 2.00 Labs Laboratory Tests Test 02/20/17 02/20/17 02/21/17 02/21/17 13:25 21:45 03:30 09:30 White Blood Count 10.4 11.1 Red Blood Count 3.95 3.49 Hemoglobin 12.5 11.1 Hematocrit 37.4 32.6 Mean Corpuscular Volume 94.6 93.6 Mean Corpuscular Hemoglobin 31.6 31.8 Mean Corpuscular Hemoglobin 33.5 34.0 Concent Red Cell Distribution Width 13.7 14.0 Platelet Count 251 189 Mean Platelet Volume 8.5 8.6 Neutrophils (%) (Auto) 92.0 93.1 Lymphocytes (%) (Auto) 4.9 4.1 Monocytes (%) (Auto) 2.6 2.6 Eosinophils (%) (Auto) 0.1 0.0 Basophils (%) (Auto) 0.4 0.2 Neutrophils # (Auto) 9.6 10.4 Lymphocytes # (Auto) 0.5 0.5 Monocytes # (Auto) 0.3 0.3 Eosinophils # (Auto) 0.0 0.0 Basophils # (Auto) 0.0 0.0 CBC Comment DIFF FINAL DIFF FINAL Differential Comment Sodium Level 146 148 Potassium Level 4.3 3.5 Chloride Level 121 121 Carbon Dioxide Level 15.9 16.1 Anion Gap 9 11 Blood Urea Nitrogen 24 22 Creatinine 1.78 1.72 Estimat Glomerular Filtration 37 38 Rate Random Glucose 176 227 Calcium Level 6.7 6.7 Protein Corrected Calcium 7.8 7.8 Total Protein 5.0 4.9 Stool C. difficile Toxin (PCR) NEGATIVE Stl C. difficile Toxin PRESUMPTIVE Epiderm 027 NEGATIVE Random Vancomycin Level 4.6 Lactic Acid Level 1.9 Date/Time Procedure Status Source Growth 02/20/17 21:45 Cryptosporidium Exam Received Stool Stool Pending 02/20/17 21:45 Giardia Antigen (CESAR) Received Stool Stool Pending 02/20/17 21:45 Received Stool Stool Pending 02/19/17 20:50 Urine Culture - Final Complete Urine Catheterized Urine Escherichia Coli 02/19/17 20:50 Influenza Types A,B Antigen (CESAR) - Final Complete Nasal Washing NEGATIVE FOR FLU A AND B ANTIGEN.... 02/19/17 20:05 Aerobic Blood Culture - Preliminary Resulted Blood Peripheral NO GROWTH IN 2 DAYS 02/19/17 20:05 Anaerobic Blood Culture - Preliminary Resulted Blood Peripheral NO GROWTH IN 2 DAYS Radiology Last 48 hours Impressions Abdomen/Pelvis CT 02/20/17 0000 Signed Impressions: Service Date/Time: Monday, February 20, 2017 10:42 - CONCLUSION: 1. Air and fluid distention of multiple small bowel loops with a discrete transition in the right lower abdominal quadrant in the region of the ilium. Findings are concerning for at least a partial small bowel obstruction 2. 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 3. Asymmetric enlargement of the right iliac is muscle belly. This may be due to tumoral involvement. 4. Probable prostatectomy and iliac micaela dissection. 5. Bibasilar atelectatic changes. Old granulomatous disease. 6. Results were discussed with Dr. Easley at the time of this dictation. Haim Block MD Head CT 02/19/171954 Signed Impressions: Service Date/Time: January 20:19 - CONCLUSION: 1. No acute intracranial abnormalities. Sai Markham MD Chest X-Ray 02/19/171954 Signed Impressions: Service Date/Time: January 20:05 - CONCLUSION: 1. Linear atelectasis or scarring at the lung bases. No effusion or pneumothorax. Sai Markham MD Abdomen: Non-distended, BS normal A/P Assessment and Plan Ileus vs VGE, doubt SBO resume diet likely a viral illness with emesis and diarrhea, not CW mechanical SBO mild ileus with UTI abdominal xray today much improved. will sign off, please call if any questions. Jerome Corona MD Feb 21, 2017 12:17
--- NOTE | 2017-02-21 14:41 | HHI.IDPN ---
Subjective Subjective Remarks improved had BM off pressors had BM c.diff neg Antibiotics vanco zosyn Allergies: Coded Allergies: No Known Allergies (Unverified , 02/19/17) Objective . Vital Signs Date Time Temp Pulse Resp B/P Pulse Ox O2 Delivery O2 Flow Rate FiO2 02/21/17 10:00 93 02/21/17 08:30 98 21 02/21/17 08:00 97.8 94 36 123/67 98 02/21/17 08:00 94 02/21/17 06:00 89 02/21/17 04:00 98.2 89 23 109/61 100 02/21/17 04:00 98 02/21/17 02:00 95 02/21/17 00:00 99.0 99 24 120/59 97 02/21/17 00:00 99 02/20/17 22:00 98 02/20/17 20:00 100 02/20/17 20:00 99.1 100 24 109/58 97 02/20/17 19:35 97 Nasal Cannula 2.00 02/20/17 18:00 100 02/20/17 16:00 98.3 95 35 116/63 98 02/20/17 16:00 95 02/20/17 02/20/17 02/21/17 15:00 23:00 07:00 Intake Total 2793 ml 819 ml 806 ml Output Total 900 ml 725 ml 750 ml Balance 1893 ml 94 ml 56 ml Intake Oral 0 ml IV Total 2793 ml 819 ml 806 ml Output Urine Total 900 ml 725 ml 750 ml Stool Total 0 ml . Laboratory Tests Test 02/19/17 02/20/17 02/20/17 02/21/17 20:05 06:40 13:25 03:30 White Blood Count 8.4 TH/MM3 8.2 TH/MM3 10.4 TH/MM3 11.1 TH/MM3 Red Blood Count 4.49 MIL/MM3 4.05 MIL/MM3 3.95 MIL/MM3 3.49 MIL/MM3 Hemoglobin 14.7 GM/DL 13.0 GM/DL 12.5 GM/DL 11.1 GM/DL Hematocrit 42.5 % 38.3 % 37.4 % 32.6 % Mean Corpuscular Volume 94.6 FL 94.4 FL 94.6 FL 93.6 FL Mean Corpuscular Hemoglobin 32.8 PG 32.1 PG 31.6 PG 31.8 PG Mean Corpuscular Hemoglobin 34.7 % 34.0 % 33.5 % 34.0 % Concent Red Cell Distribution Width 13.4 % 13.8 % 13.7 % 14.0 % Platelet Count 245 TH/MM3 261 TH/MM3 251 TH/MM3 189 TH/MM3 Mean Platelet Volume 8.5 FL 9.2 FL 8.5 FL 8.6 FL Neutrophils (%) (Auto) 82.0 % 77.6 % 92.0 % 93.1 % Lymphocytes (%) (Auto) 8.9 % 12.6 % 4.9 % 4.1 % Monocytes (%) (Auto) 7.3 % 5.1 % 2.6 % 2.6 % Eosinophils (%) (Auto) 1.4 % 3.7 % 0.1 % 0.0 % Basophils (%) (Auto) 0.4 % 1.0 % 0.4 % 0.2 % Neutrophils # (Auto) 6.9 TH/MM3 6.4 TH/MM3 9.6 TH/MM3 10.4 TH/MM3 Lymphocytes # (Auto) 0.7 TH/MM3 1.0 TH/MM3 0.5 TH/MM3 0.5 TH/MM3 Monocytes # (Auto) 0.6 TH/MM3 0.4 TH/MM3 0.3 TH/MM3 0.3 TH/MM3 Eosinophils # (Auto) 0.1 TH/MM3 0.3 TH/MM3 0.0 TH/MM3 0.0 TH/MM3 Basophils # (Auto) 0.0 TH/MM3 0.1 TH/MM3 0.0 TH/MM3 0.0 TH/MM3 CBC Comment DIFF FINAL DIFF FINAL DIFF FINAL DIFF FINAL Differential Comment Laboratory Tests Test 02/19/17 02/19/17 02/20/17 02/20/17 20:05 22:53 05:28 07:55 Sodium Level 141 MEQ/L 147 MEQ/L Potassium Level 3.6 MEQ/L 3.1 MEQ/L Chloride Level 110 MEQ/L 120 MEQ/L Carbon Dioxide Level 20.3 MEQ/L 15.2 MEQ/L Anion Gap 11 MEQ/L 12 MEQ/L Blood Urea Nitrogen 23 MG/DL 24 MG/DL Creatinine 1.88 MG/DL 1.93 MG/DL Estimat Glomerular Filtration 34 ML/MIN 33 ML/MIN Rate Random Glucose 121 MG/DL 93 MG/DL Lactic Acid Level 3.5 mmol/L 1.7 mmol/L 2.7 mmol/L Calcium Level 8.4 MG/DL 7.1 MG/DL Magnesium Level 1.8 MG/DL Total Bilirubin 0.7 MG/DL Aspartate Amino Transf 20 U/L (AST/SGOT) Alanine Aminotransferase 17 U/L (ALT/SGPT) Alkaline Phosphatase 99 U/L Total Creatine Kinase 72 U/L Troponin I 0.03 NG/ML B-Type Natriuretic Peptide 175 PG/ML Total Protein 7.0 GM/DL 5.3 GM/DL Albumin 3.3 GM/DL Lipase 171 U/L Protein Corrected Calcium 8.1 MG/DL Test 02/20/17 02/20/17 02/21/17 02/21/17 08:35 13:25 03:30 09:30 Lactic Acid Level 2.2 mmol/L 1.9 mmol/L Sodium Level 146 MEQ/L 148 MEQ/L Potassium Level 4.3 MEQ/L 3.5 MEQ/L Chloride Level 121 MEQ/L 121 MEQ/L Carbon Dioxide Level 15.9 MEQ/L 16.1 MEQ/L Anion Gap 9 MEQ/L 11 MEQ/L Blood Urea Nitrogen 24 MG/DL 22 MG/DL Creatinine 1.78 MG/DL 1.72 MG/DL Estimat Glomerular Filtration 37 ML/MIN 38 ML/MIN Rate Random Glucose 176 MG/DL 227 MG/DL Calcium Level 6.7 MG/DL 6.7 MG/DL Protein Corrected Calcium 7.8 MG/DL 7.8 MG/DL Total Protein 5.0 GM/DL 4.9 GM/DL Microbiology Date/Time Procedure Status Source Growth 02/19/17 19:45 Aerobic Blood Culture - Preliminary Resulted Blood Peripheral NO GROWTH IN 2 DAYS 02/19/17 19:45 Anaerobic Blood Culture - Preliminary Resulted Blood Peripheral NO GROWTH IN 2 DAYS 02/19/17 20:05 Aerobic Blood Culture - Preliminary Resulted Blood Peripheral NO GROWTH IN 2 DAYS 02/19/17 20:05 Anaerobic Blood Culture - Preliminary Resulted Blood Peripheral NO GROWTH IN 2 DAYS 02/19/17 20:50 Influenza Types A,B Antigen (CESAR) - Final Complete Nasal Washing NEGATIVE FOR FLU A AND B ANTIGEN.... 02/19/17 20:50 Urine Culture - Final Complete Urine Catheterized Urine Escherichia Coli 02/20/17 21:45 Received Stool Stool Pending 02/20/17 21:45 Cryptosporidium Exam Received Stool Stool Pending 02/20/17 21:45 Giardia Antigen (CESAR) Received Stool Stool Pending Imaging Last Impressions Abdomen X-Ray 02/21/17 0000 Signed Impressions: Service Date/Time: Tuesday, February 21, 2017 03:24 - CONCLUSION: 1. Resolution of the previously seen dilated small bowel. 2. Sclerotic metastasis involving the right pelvis. Christopher Saldana Jr., MD Abdomen/Pelvis CT 02/20/17 0000 Signed Impressions: Service Date/Time: Monday, February 20, 2017 10:42 - CONCLUSION: 1. Air and fluid distention of multiple small bowel loops with a discrete transition in the right lower abdominal quadrant in the region of the ilium. Findings are concerning for at least a partial small bowel obstruction 2. 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 3. Asymmetric enlargement of the right iliac is muscle belly. This may be due to tumoral involvement. 4. Probable prostatectomy and iliac micaela dissection. 5. Bibasilar atelectatic changes. Old granulomatous disease. 6. Results were discussed with Dr. Easley at the time of this dictation. Haim Block MD Head CT 02/19/171954 Signed Impressions: Service Date/Time: January 20:19 - CONCLUSION: 1. No acute intracranial abnormalities. Sai Markham MD Chest X-Ray 02/19/171954 Signed Impressions: Service Date/Time: January 20:05 - CONCLUSION: 1. Linear atelectasis or scarring at the lung bases. No effusion or pneumothorax. Sai Markham MD Physical Exam CONSTITUTIONAL/GENERAL: resting comfortably, in no apparent distress. TUBES/LINES/DRAINS: SKIN: No jaundice, rashes, or lesions. Ecchymoses on upper extremities. No wounds seen anteriorly. Skin temperature appropriate. Not diaphoretic. EYES: Pupils equal and round and reactive. Extraocular motions intact. No scleral icterus. No injection or drainage. Fundi not examined. CARDIOVASCULAR: Regular rate and rhythm without murmurs, gallops, or rubs. No JVD. Peripheral pulses symmetric. Diminished perfusion BL feet, feet are cold, delayed refill Hands, fingers warm RESPIRATORY/CHEST: Symmetric, unlabored respirations. Clear to auscultation. Breath sounds equal bilaterally. No wheezes, rales, or rhonchi. GASTROINTESTINAL: Abdomen soft, non-tender, less distended; Bowel sounds present. GENITOURINARY: Without palpable bladder distension. Galvez catheter in place with clear elbow urine MUSCULOSKELETAL: Extremities without clubbing, cyanosis, or edema. No mottling NEUROLOGICAL: Asleep Assessment & Plan Remarks Sepsis, septic shock: clinically resolved - most likley source is UTI with sepsis vs intraabdominal 2/2 SBO - clinically unstable Lactic acidosis: resolved Fever : resolved ARF - 2/2 sepsis Small bowell obstruction - sx ff; recommended nonoperative treatment at this time UTI, E.coli Know metastaatic prostate Ca H/o prostatectomy -dc vancomycin - cont zosyn - fu blood clx untill final - fu clinically - eventually will switch to po levaquine to complete course for UTi if blood clx remain negative Stefani Mcdonnell MD Feb 21, 2017 14:41
[2017-02-22] VITALS (13 sets, daily range): BP systolic 138–156; BP diastolic 74–91; PULSE 74–97; RESP 16–20; TEMP 97.9–98.8; O2SAT 96–98
[2017-02-22] MEDS: INSULIN NovoLIN REGULAR SUPPLEMENTAL SCALE SQ SCH ×6 (01:00→21:00)
[2017-02-22] MEDS: HYDROCORTISONE SOD SUCCINATE 100 MG VIAL IV PUSH SCH ×3 (01:00→17:44)
[2017-02-22] MEDS: PIPERACIL-TAZO 3.375 GM PREMIX 50 ML IV SCH ×2 (04:00→08:29)
[2017-02-22 06:38] LABS: BICARBONATE 16.4 MEQ/L (21.0-32.0); MAGNESIUM 1.8 MG/DL (1.5-2.5); POTASSIUM 3.1 MEQ/L (3.5-5.1)
[2017-02-22 07:29] LABS: AUTOMATED NEUTROPHIL # 10.6 TH/MM3 (1.8-7.7); BASOPHIL % 0.1 % (0.0-2.0); HEMATOCRIT 30.6 % (39.0-51.0); HEMO FLAGS DIFF FINAL; LYMPH % 4.6 % (9.0-44.0); LYMPHOCYTE # 0.5 TH/MM3 (1.0-4.8); MEAN CELL VOLUME 92.3 FL (80.0-100.0); MEAN CORPUSCULAR HEMOGLOBIN 31.4 PG (27.0-34.0); MONO % 3.8 % (0.0-8.0); NEUT % 91.5 % (16.0-70.0); PLATELET COUNT 177 TH/MM3 (150-450); RED BLOOD COUNT 3.32 MIL/MM3 (4.50-5.90); RED CELL DISTRIBUTION WIDTH 13.7 % (11.6-17.2); WHITE BLOOD COUNT 11.6 TH/MM3 (4.0-11.0)
--- NOTE | 2017-02-22 07:48 | HHI.CCPN ---
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 He presented to the [facility] ED last night with a history of intractable nausea and vomiting x1 day and altered mental status. On arrival to the ED the patient had a fever with a T-max of 103.3 and early this morning he became hypotensive with a systolic blood pressure in the 70s to 80s. The patient was given approximately four liters of crystalloids and was initially admitted under the hospitalist service. His initial laboratory data from last night showed renal failure with creatinine of 1.88 and elevated lactic acid level of 3.5. There was no evidence of any leukocytosis. CT scan of the brain was obtained which showed no acute intracranial abnormality and a chest x-ray in the ER showed linear atelectasis / scarring at the lung bases. He was given vancomycin and cefepime. Due to persistent hypotension the patient was started on Levophed which is currently at 20 mcg and a right femoral central line was placed by the ED physician. His labs from this morning showed worsening renal function with creatinine level of 1.93. Urinalysis showed moderate leukocyte esterase, 10 wbc 's, moderate bacteria. He denies any chest pain, shortness of breath or abdominal pain, however, he reports intermittent abdominal cramps associated with his nausea and vomiting. The patient states that he had homemade frozen food and shortly after he developed his nausea and vomiting along with diarrhea. The patient just finished a seven-day course of antibiotics for a bladder infection. The patient denies any orthopnea, PND or edema of the lower extremities. 02/21 Patient is off Levophed. Awake and alert afebrile. KUB from this morning showed resolution of previously seen dilated small bowel. 02/22 No acute events overnight. Afebrile. Objective Vital Signs Date Time Temp Pulse Resp B/P Pulse Ox O2 Delivery O2 Flow Rate FiO2 02/22/17 06:00 83 02/22/17 04:00 98.5 19 142/84 97 02/21/17 08:30 21 02/20/17 19:35 Nasal Cannula 2.00 Intake and Output 02/21/17 02/21/17 02/22/17 08:00 16:00 00:00 Intake Total 806 ml 1391 ml 675 ml Output Total 750 ml 675 ml 400 ml Balance 56 ml 716 ml 275 ml Result Diagram: 02/22/17 0549 02/22/17 0549 Other Results Laboratory Tests Test 02/21/17 02/22/17 09:30 05:49 Lactic Acid Level 1.9 mmol/L White Blood Count 11.6 TH/MM3 Red Blood Count 3.32 MIL/MM3 Hemoglobin 10.4 GM/DL Hematocrit 30.6 % Mean Corpuscular Volume 92.3 FL Mean Corpuscular Hemoglobin 31.4 PG Mean Corpuscular Hemoglobin 34.0 % Concent Red Cell Distribution Width 13.7 % Platelet Count 177 TH/MM3 Mean Platelet Volume 8.6 FL Neutrophils (%) (Auto) 91.5 % Lymphocytes (%) (Auto) 4.6 % Monocytes (%) (Auto) 3.8 % Eosinophils (%) (Auto) 0.0 % Basophils (%) (Auto) 0.1 % Neutrophils # (Auto) 10.6 TH/MM3 Lymphocytes # (Auto) 0.5 TH/MM3 Monocytes # (Auto) 0.4 TH/MM3 Eosinophils # (Auto) 0.0 TH/MM3 Basophils # (Auto) 0.0 TH/MM3 CBC Comment DIFF FINAL Differential Comment Sodium Level 145 MEQ/L Potassium Level 3.1 MEQ/L Chloride Level 118 MEQ/L Carbon Dioxide Level 16.4 MEQ/L Anion Gap 11 MEQ/L Blood Urea Nitrogen 29 MG/DL Creatinine 1.82 MG/DL Estimat Glomerular Filtration 36 ML/MIN Rate Random Glucose 139 MG/DL Calcium Level 6.9 MG/DL Protein Corrected Calcium 8.0 MG/DL Phosphorus Level 2.4 MG/DL Magnesium Level 1.8 MG/DL Total Protein 5.0 GM/DL Imaging Last Impressions Abdomen X-Ray 02/21/17 0000 Signed Impressions: Service Date/Time: Tuesday, February 21, 2017 03:24 - CONCLUSION: 1. Resolution of the previously seen dilated small bowel. 2. Sclerotic metastasis involving the right pelvis. Christopher Saldana Jr., MD Abdomen/Pelvis CT 02/20/17 0000 Signed Impressions: Service Date/Time: Monday, February 20, 2017 10:42 - CONCLUSION: 1. Air and fluid distention of multiple small bowel loops with a discrete transition in the right lower abdominal quadrant in the region of the ilium. Findings are concerning for at least a partial small bowel obstruction 2. 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 3. Asymmetric enlargement of the right iliac is muscle belly. This may be due to tumoral involvement. 4. Probable prostatectomy and iliac micaela dissection. 5. Bibasilar atelectatic changes. Old granulomatous disease. 6. Results were discussed with Dr. Easley at the time of this dictation. Haim Block MD Head CT 02/19/171954 Signed Impressions: Service Date/Time: January 20:19 - CONCLUSION: 1. No acute intracranial abnormalities. Sai Markham MD Chest X-Ray 02/19/171954 Signed Impressions: Service Date/Time: , February 19, 2017 20:05 - CONCLUSION: 1. Linear atelectasis or scarring at the lung bases. No effusion or pneumothorax. Sai Markham MD Objective Remarks GENERAL: Patient is 81 yo lying in be din NAD SKIN: Warm and dry. HEAD: Normocephalic. EYES: No scleral icterus. No injection or drainage. NECK: Supple, trachea midline. No JVD or lymphadenopathy. CARDIOVASCULAR: Regular rate and rhythm without murmurs, gallops, or rubs. RESPIRATORY: Breath sounds equal bilaterally. No accessory muscle use. GASTROINTESTINAL: Abdomen soft, non-tender, nondistended. MUSCULOSKELETAL: No cyanosis, or edema. Neuro: Awake an alert A/P Assessment and Plan 1. Resp Insuff 2. Intractable nausea and vomiting..improved 3. Lactic acidemia..resolved 4. Acute renal failure.. 5. Urinary tract infection. 6. Hypernatremia. 7. ?Partial SBO 8. History of hypertension. 9. History of coronary artery disease. 10.History of prostate CA with bone mets. Plan Neuro: Monitor neuro status closely and avoid any sedatives. CT brain in the ED showed no acute intracranial abnormality. Pulm: Continue with oxygen and maintain sats above 92%. Bronchodilators CV: Monitor heart rate and BP and maintain MAP > 65 mmHg. Lactic acid resolved 1.9 yesterday Taper stress dose steroids- Decrease HC 50mg IV Q12 : Monitor renal function, I's and O's, and electrolyte replacement as needed. Avoid nephrotoxins. IVF D5W@50ml/hr, will need K, Phos replacement today Renal function slightly worse today with Cr: 1.82 from 1.72 and UO: 975 ml in 24hrs Renal eval. Diurese with Bu GI: On fill liquid diet, Protonix 40 mg IV daily for GI prophylaxis. Surgery on case for partial SBO. KUB 02/21 showed resolution of previously seen dilated bowel. Advance diet if ok with surgery ID: Continue with abx per ID ( Zosyn) off Vanco monitor for signs of infections ( Fever, WBC) nasal washing for influenza is negative. C. diff PCR negative. 02/19 urine cx: E.coli Endo: On SSI ( medium scale) GI prophylaxis with Protonix 40 mg daily. DVT prophylaxis with heparin subcu. Lines: peripheral IV's Will sign off and transfer care to HEP Level 3 Paul Easley MD Feb 22, 2017 07:48
[2017-02-22] MEDS: POTASSIUM CHLOR 20 MEQ PREMIX 100 ML IV SCH ×2 (08:29→13:22)
[2017-02-22] MEDS: PANTOPRAZOLE SODIUM 40 MG VIAL IV PUSH SCH (08:30)
[2017-02-22] MEDS: SODIUM CHLORIDE 0.9% FLUSH 10 ML FLUSH IV FLUSH SCH ×2 (08:30→21:00)
[2017-02-22] MEDS: HEPARIN SODIUM - SQ 10,000 UNITS/ML VIAL SQ SCH ×2 (08:30→21:36)
[2017-02-22] MEDS: DEXTROSE 5% IN WATE 1000ML INJ 1,000 ML IV SCH (08:30)
[2017-02-22] MEDS ORDERED: SODIUM PHOSPHATE INJ 15 MMOL in SODIUM CHLORIDE 0.9% INJ 150 ML IV ONE (09:00)
[2017-02-22] MEDS ORDERED: BUMETANIDE INJ 1 MG/4 ML VIAL IV PUSH ONE (09:00)
[2017-02-22] MEDS ORDERED: CALCIUM GLUCONATE INJ 1 GM in SODIUM CHLORIDE 0.9% INJ 100 ML IV ONE (09:00)
--- NOTE | 2017-02-22 11:45 | PD.CONS ---
[facility] Service Nephrology Consult Requested By Dr. Easley Reason for Consult Acute renal failure Primary Care Physician [facility] History of Present Illness Patient 81-year-old white male with history of metastatic prostate cancer who is getting oral chemotherapy agents, on Thursday night that he developed the abdominal pain nausea vomiting and came in with high-grade fever of 103 and that he has been admitted with small bowel obstruction his creatinine is rising and today was 1.8 he denies. Previous knowledge of kidney problems as such he states that he had hemorrhagic cystitis and was diagnosed with radiation cystitis he was treated the and November and he took antibiotics the at the end of December as his urine stream with decrease and develop a UTI, is still feeling weak and tired Review of Systems Constitutional: COMPLAINS OF: Fatigue, Fever Gastrointestinal: COMPLAINS OF: Abdominal pain, Nausea, Vomiting Past Family Social History Allergies: Coded Allergies: No Known Allergies (Unverified , 02/19/17) Past Medical History Prostate cancer Status post surgery, radiation and chemotherapy Metastatic cancer Hypertension Coronary artery disease previous 2 stents Past Surgical History Prostatectomy Castration Appendectomy Cholecystectomy Reported Medications Reported Meds & Active Scripts Active Reported Alfuzosin ER 24 HR 10 Mg Tab 10 Mg PO DAILY Prednisone 5 Mg Tab 5 Mg PO DAILY Prednisone 2.5 Mg Tab 2.5 Mg PO HS Zytiga (Abiraterone) 250 Mg Tab 1,000 Mg PO DAILY #1 HR LUNCHAC Hazardous agent; use appropriate precautions for handling & disposal. Take on an empty stomach, 1 hr before or 2 hrs after food. Swallow whole, do not crush or chew. Pravastatin 40 Mg Tab 40 Mg PO HS Colace (Docusate Sodium) 100 Mg Cap 100 Mg PO HS Metoprolol Tartrate 25 Mg Tab 25 Mg PO BID Active Ordered Medications Current Medications Medications (Trade) Dose Ordered Sig/Hamzah Route Start Time Stop Time Status Last Admin (NS Flush) 2 ml UNSCH PRN IV FLUSH 02/19/17 23:00 (NS Flush) 2 ml BID IV FLUSH 02/20/17 09:00 02/22/17 08:30 (Narcan Inj) 0.4 mg UNSCH PRN IV 02/19/17 23:00 (Brethine Inj) 1 mg UNSCH PRN SQ 02/20/17 04:30 (Protonix Inj) 40 mg DAILY IV PUSH 02/20/17 09:00 02/22/17 08:30 Miscellaneous Information 1 Q361D XX 02/20/17 08:30 02/20/17 08:30 (Chlorhexidine 2% Cloth) 3 pack Taper DAILY@04 TOP 02/21/17 04:00 02/17/18 03:59 02/21/17 03:23 (Chlorhexidine 2% Cloth) 3 pack UNSCH PRN TOP 02/20/17 08:30 Heparin Sodium (Porcine) 5000 units 5,000 units Q12HR SQ 02/20/17 21:00 02/22/17 08:30 (D5W 1000 ml Inj) 1,000 ml @ 50 mls/hr Q20H IV 02/21/17 09:00 02/22/17 08:30 (D50w (Vial) Inj) 25 ml UNSCH PRN IV PUSH 02/21/17 08:30 (Glucagon Inj) 1 mg UNSCH PRN OTHER 02/21/17 08:30 (NovoLIN R SUPPLEMENTAL SCALE) 1 Q4H SQ 02/21/17 09:00 02/22/17 01:00 Hydrocortisone Sodium Succinate 50 mg 50 mg Q12H IV PUSH 02/22/17 18:00 Potassium Chloride 100 ml @ 50 mls/hr Q2H IV 02/22/17 09:00 02/22/17 12:59 02/22/17 08:29 Sodium Phosphate 15 mmol/Sodium Chloride 155 ml @ 38.75 mls/ hr ONCE ONCE IV 02/22/17 09:00 02/22/17 12:59 02/22/17 10:38 (Zosyn 2.25 Gm Premix) 50 ml @ 100 mls/hr Q6H IV 02/22/17 15:00 Family History Noncontributory Social History Used to smoke 60 years ago, alcohol use social Physical Exam Vital Signs Vital Signs Date Time Temp Pulse Resp B/P Pulse Ox O2 Delivery O2 Flow Rate FiO2 02/22/17 10:00 86 02/22/17 08:00 82 02/22/17 07:59 97 21 02/22/17 06:00 83 02/22/17 04:00 98.5 84 19 142/84 97 02/22/17 04:00 84 02/22/17 02:00 88 02/22/17 00:00 98.8 87 20 151/81 98 02/22/17 00:00 97 02/21/17 22:00 87 02/21/17 20:00 98.0 94 20 133/76 98 02/21/17 20:00 94 02/21/17 18:00 90 02/21/17 16:00 97.8 90 21 119/70 98 02/21/17 16:00 90 02/21/17 14:00 89 02/21/17 12:00 87 02/21/17 12:00 97.8 87 22 110/66 98 Physical Exam GENERAL: Well-nourished, well-developed patient. SKIN: Warm and dry. HEAD: Normocephalic. EYES: No scleral icterus. No injection or drainage. NECK: Supple, trachea midline. No JVD or lymphadenopathy. CARDIOVASCULAR: Regular rate and rhythm without murmurs, gallops, or rubs. RESPIRATORY: Breath sounds equal bilaterally. No accessory muscle use. GASTROINTESTINAL: Abdomen soft, tenderness present EXTREMITIES: No cyanosis, or edema. NEUROLOGICAL: Awake, alert, and oriented x 3. Non-focal. Laboratory Laboratory Tests Test 02/22/17 05:49 White Blood Count 11.6 Red Blood Count 3.32 Hemoglobin 10.4 Hematocrit 30.6 Mean Corpuscular Volume 92.3 Mean Corpuscular Hemoglobin 31.4 Mean Corpuscular Hemoglobin 34.0 Concent Red Cell Distribution Width 13.7 Platelet Count 177 Mean Platelet Volume 8.6 Neutrophils (%) (Auto) 91.5 Lymphocytes (%) (Auto) 4.6 Monocytes (%) (Auto) 3.8 Eosinophils (%) (Auto) 0.0 Basophils (%) (Auto) 0.1 Neutrophils # (Auto) 10.6 Lymphocytes # (Auto) 0.5 Monocytes # (Auto) 0.4 Eosinophils # (Auto) 0.0 Basophils # (Auto) 0.0 CBC Comment DIFF FINAL Differential Comment Sodium Level 145 Potassium Level 3.1 Chloride Level 118 Carbon Dioxide Level 16.4 Anion Gap 11 Blood Urea Nitrogen 29 Creatinine 1.82 Estimat Glomerular Filtration 36 Rate Random Glucose 139 Calcium Level 6.9 Protein Corrected Calcium 8.0 Phosphorus Level 2.4 Magnesium Level 1.8 Total Protein 5.0 Date/Time Procedure Status Source Growth 02/20/17 21:45 Cryptosporidium Exam Received Stool Stool Pending 02/20/17 21:45 Giardia Antigen (CESAR) Received Stool Stool Pending 02/20/17 21:45 - Final Complete Stool Stool NO ENTERIC PATHOGENS DETECTED BY PCR... 02/19/17 20:50 Urine Culture - Final Complete Urine Catheterized Urine Escherichia Coli 02/19/17 20:50 Influenza Types A,B Antigen (CESAR) - Final Complete Nasal Washing NEGATIVE FOR FLU A AND B ANTIGEN.... 02/19/17 20:05 Aerobic Blood Culture - Preliminary Resulted Blood Peripheral NO GROWTH IN 3 DAYS 02/19/17 20:05 Anaerobic Blood Culture - Preliminary Resulted Blood Peripheral NO GROWTH IN 3 DAYS Result Diagram: 02/22/17 0549 02/22/17 0549 Imaging Last Impressions Abdomen X-Ray 02/21/17 0000 Signed Impressions: Service Date/Time: Tuesday, February 21, 2017 03:24 - CONCLUSION: 1. Resolution of the previously seen dilated small bowel. 2. Sclerotic metastasis involving the right pelvis. Christopher Saldana Jr., MD Abdomen/Pelvis CT 02/20/17 0000 Signed Impressions: Service Date/Time: Monday, February 20, 2017 10:42 - CONCLUSION: 1. Air and fluid distention of multiple small bowel loops with a discrete transition in the right lower abdominal quadrant in the region of the ilium. Findings are concerning for at least a partial small bowel obstruction 2. 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 3. Asymmetric enlargement of the right iliac is muscle belly. This may be due to tumoral involvement. 4. Probable prostatectomy and iliac micaela dissection. 5. Bibasilar atelectatic changes. Old granulomatous disease. 6. Results were discussed with Dr. Easley at the time of this dictation. Haim Block MD Head CT 02/19/171954 Signed Impressions: Service Date/Time: January 20:19 - CONCLUSION: 1. No acute intracranial abnormalities. Sai Markham MD Chest X-Ray 02/19/171954 Signed Impressions: Service Date/Time: January 20:05 - CONCLUSION: 1. Linear atelectasis or scarring at the lung bases. No effusion or pneumothorax. Sai E. Markham, MD Assessment and Plan Problem List: (1) Acute renal failure Plan: Patient is passing urine we will check urine sodium and creatinine ratio , he has metastatic prostate cancer Obtain a kidney ultrasound Potassium has been replaced Follow electrolytes Avoid nephrotoxins (2) Small bowel obstruction Plan: Continue to monitor (3) Septic shock Plan: Continue supportive care (4) UTI (urinary tract infection) Plan: Home Zosyn for Escherichia coli Problem Qualifiers (1) Acute renal failure: Qualified Code: N17.9 - Acute renal failure, unspecified acute renal failure type (2) UTI (urinary tract infection): Qualified Code: N39.0 - Urinary tract infection without hematuria, site unspecified Izabel Goodman MD Feb 22, 2017 11:45
[2017-02-22] MEDS ORDERED: PIPERACIL-TAZO 2.25 GM PREMIX 50 ML IV SCH (15:00)
[2017-02-22] MEDS ORDERED: BUMETANIDE INJ 1 MG/4 ML VIAL ONE (17:39)
[2017-02-22] MEDS: PIPERACIL-TAZO 2.25 GM PREMIX 50 ML IV SCH ×2 (17:44→21:35)
--- NOTE | 2017-02-22 20:25 | RADRPT ---
EXAM DATE/TIME: 02/22/2017 16:51 [place] COMPARISON: No previous studies available for comparison. INDICATIONS : Increased BUN and Creatinine. MEDICAL HISTORY : Hypercholesterolemia. Myocardial infarction. Hypertension. Coronary artery disease. Seizures. Head tr auma. Prostate cancer. Arthritis. Chemotherapy. Radiation therapy. Blood transfusion. SURGICAL HISTORY : Cholecystectomy. Appendectomy. Coronary artery stent. CABG. Prostatectomy. Bilateral orchiectomy. Hem orrhoidectomy. ENCOUNTER: Initial ACUITY: 1 day PAIN SCORE: 0/10 LOCATION: Bilateral flank MEASUREMENTS: RIGHT KIDNEY: 11.5 x 6.3 x 5.5 cm LEFT KIDNEY: 10.7 x 5.5 x 5.7 cm FINDINGS: RIGHT KIDNEY: Renal cortex is normal in thickness and increased echotexture. No hydronephrosis, stone, or mass. LEFT KIDNEY: Renal cortex is normal in thickness and increased echotexture. No hydronephrosis, stone, or mass. BLADDER: Galvez present. CONCLUSION: 1. Increased renal echogenicity characteristic of mild medical renal disease. No hydronephrosis. Blad humberto decompressed by Galvez. Sai Markham MD on February 22, 2017 at 20:22 Board Certified Radiologist. This report was verified electronically.
--- NOTE | 2017-02-22 23:39 | HHI.PR ---
Subjective Subjective Notes feels better, no NV, flatus today Objective Vitals/I&O Vital Signs Date Time Temp Pulse Resp B/P Pulse Ox O2 Delivery O2 Flow Rate FiO2 02/22/17 18:00 79 02/22/17 16:00 98.4 16 156/91 97 02/22/17 07:59 21 02/20/17 19:35 Nasal Cannula 2.00 Labs Laboratory Tests Test 02/22/17 02/22/17 05:49 15:18 White Blood Count 11.6 Red Blood Count 3.32 Hemoglobin 10.4 Hematocrit 30.6 Mean Corpuscular Volume 92.3 Mean Corpuscular Hemoglobin 31.4 Mean Corpuscular Hemoglobin 34.0 Concent Red Cell Distribution Width 13.7 Platelet Count 177 Mean Platelet Volume 8.6 Neutrophils (%) (Auto) 91.5 Lymphocytes (%) (Auto) 4.6 Monocytes (%) (Auto) 3.8 Eosinophils (%) (Auto) 0.0 Basophils (%) (Auto) 0.1 Neutrophils # (Auto) 10.6 Lymphocytes # (Auto) 0.5 Monocytes # (Auto) 0.4 Eosinophils # (Auto) 0.0 Basophils # (Auto) 0.0 CBC Comment DIFF FINAL Differential Comment Sodium Level 145 Potassium Level 3.1 3.5 Chloride Level 118 Carbon Dioxide Level 16.4 Anion Gap 11 Blood Urea Nitrogen 29 Creatinine 1.82 Estimat Glomerular Filtration 36 Rate Random Glucose 139 Calcium Level 6.9 Protein Corrected Calcium 8.0 Phosphorus Level 2.4 Magnesium Level 1.8 Total Protein 5.0 Date/Time Procedure Status Source Growth 02/20/17 21:45 Cryptosporidium Exam Received Stool Stool Pending 02/20/17 21:45 Giardia Antigen (CESAR) Received Stool Stool Pending 02/20/17 21:45 - Final Complete Stool Stool NO ENTERIC PATHOGENS DETECTED BY PCR... 02/19/17 20:50 Urine Culture - Final Complete Urine Catheterized Urine Escherichia Coli 02/19/17 20:50 Influenza Types A,B Antigen (CESAR) - Final Complete Nasal Washing NEGATIVE FOR FLU A AND B ANTIGEN.... 02/19/17 20:05 Aerobic Blood Culture - Preliminary Resulted Blood Peripheral NO GROWTH IN 3 DAYS 02/19/17 20:05 Anaerobic Blood Culture - Preliminary Resulted Blood Peripheral NO GROWTH IN 3 DAYS Radiology Last 48 hours Impressions Abdomen/Pelvis CT 02/20/17 0000 Signed Impressions: Service Date/Time: Monday, February 20, 2017 10:42 - CONCLUSION: 1. Air and fluid distention of multiple small bowel loops with a discrete transition in the right lower abdominal quadrant in the region of the ilium. Findings are concerning for at least a partial small bowel obstruction 2. 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 3. Asymmetric enlargement of the right iliac is muscle belly. This may be due to tumoral involvement. 4. Probable prostatectomy and iliac micaela dissection. 5. Bibasilar atelectatic changes. Old granulomatous disease. 6. Results were discussed with Dr. Easley at the time of this dictation. Haim Block MD Head CT 02/19/171954 Signed Impressions: Service Date/Time: January 20:19 - CONCLUSION: 1. No acute intracranial abnormalities. Sai Markham MD Chest X-Ray 02/19/171954 Signed Impressions: Service Date/Time: January 20:05 - CONCLUSION: 1. Linear atelectasis or scarring at the lung bases. No effusion or pneumothorax. Sai Markham MD Cardiovascular: Regular Abdomen: Non-distended, Non-tender A/P Assessment and Plan 81yo male with PSBO vs. Ileus, stable. passing flatus, tolerating diet will sign off Lawrence Hernandez MD Feb 22, 2017 23:39
[2017-02-23] VITALS (13 sets, daily range): BP systolic 120–149; BP diastolic 65–83; PULSE 63–77; RESP 18–22; TEMP 97.7–98.2; O2SAT 94–97
[2017-02-23] MEDS: DEXTROSE 5% IN WATE 1000ML INJ 1,000 ML IV SCH ×2 (01:00→21:19)
[2017-02-23] MEDS: INSULIN NovoLIN REGULAR SUPPLEMENTAL SCALE SQ SCH ×6 (01:00→21:00)
[2017-02-23] MEDS: CHLORHEXIDINE GLUCONATE 2 % 1 PACK (2 CLOTHS) TOP SCH ×2 (04:00→21:19)
[2017-02-23] MEDS: HYDROCORTISONE SOD SUCCINATE 100 MG VIAL IV PUSH SCH ×2 (05:22→19:10)
[2017-02-23] MEDS: PIPERACIL-TAZO 2.25 GM PREMIX 50 ML IV SCH ×2 (05:22→08:29)
[2017-02-23 07:10] LABS: AUTOMATED NEUTROPHIL # 9.2 TH/MM3 (1.8-7.7); BASOPHIL % 0.1 % (0.0-2.0); HEMATOCRIT 30.6 % (39.0-51.0); HEMO FLAGS DIFF FINAL; LYMPH % 6.8 % (9.0-44.0); LYMPHOCYTE # 0.7 TH/MM3 (1.0-4.8); MEAN CELL VOLUME 92.9 FL (80.0-100.0); MEAN CORPUSCULAR HEMOGLOBIN 31.6 PG (27.0-34.0); MONO % 6.1 % (0.0-8.0); PLATELET COUNT 169 TH/MM3 (150-450); RED BLOOD COUNT 3.29 MIL/MM3 (4.50-5.90); WHITE BLOOD COUNT 10.6 TH/MM3 (4.0-11.0)
[2017-02-23 07:54] LABS: CALCIUM-PROTEIN CORRECTED 8.1 MG/DL (8.5-10.1)
[2017-02-23] MEDS: HEPARIN SODIUM - SQ 10,000 UNITS/ML VIAL SQ SCH ×2 (08:28→21:15)
[2017-02-23] MEDS: PANTOPRAZOLE SODIUM 40 MG VIAL IV PUSH SCH (08:28)
[2017-02-23] MEDS: SODIUM CHLORIDE 0.9% FLUSH 10 ML FLUSH IV FLUSH SCH ×2 (08:30→21:00)
--- NOTE | 2017-02-23 13:27 | HHI.IDPN ---
Subjective Subjective Remarks Pt is doing great Taking regular diaet Afebrile No abdominal pain still has diarrhea Antibiotics zosyn Allergies: Coded Allergies: No Known Allergies (Unverified , 02/19/17) Objective . Vital Signs Date Time Temp Pulse Resp B/P Pulse Ox O2 Delivery O2 Flow Rate FiO2 02/23/17 12:00 97.9 66 18 120/65 02/23/17 12:00 65 02/23/17 11:02 72 02/23/17 08:37 95 02/23/17 08:00 97.7 68 20 148/82 02/23/17 08:00 72 02/23/17 06:00 68 02/23/17 04:00 63 02/23/17 04:00 98.0 63 22 122/72 96 02/23/17 02:00 68 02/23/17 00:00 70 02/23/17 00:00 98.2 70 20 133/78 95 02/22/17 22:00 74 02/22/17 20:00 75 02/22/17 20:00 97.9 75 18 151/81 96 02/22/17 18:00 79 02/22/17 16:00 98.4 86 16 156/91 97 02/22/17 16:00 77 02/22/17 14:00 85 02/22/17 02/22/17 02/23/17 15:00 23:00 07:00 Intake Total 656 ml 535 ml 358 ml Output Total 400 ml 750 ml 450 ml Balance 256 ml -215 ml -92 ml Intake Oral 120 ml 40 ml IV Total 656 ml 415 ml 318 ml Output Urine Total 400 ml 750 ml 450 ml # Bowel Movements 1 0 . Laboratory Tests Test 02/22/17 02/23/17 05:49 05:55 White Blood Count 11.6 TH/MM3 10.6 TH/MM3 Red Blood Count 3.32 MIL/MM3 3.29 MIL/MM3 Hemoglobin 10.4 GM/DL 10.4 GM/DL Hematocrit 30.6 % 30.6 % Mean Corpuscular Volume 92.3 FL 92.9 FL Mean Corpuscular Hemoglobin 31.4 PG 31.6 PG Mean Corpuscular Hemoglobin 34.0 % 34.0 % Concent Red Cell Distribution Width 13.7 % 14.0 % Platelet Count 177 TH/MM3 169 TH/MM3 Mean Platelet Volume 8.6 FL 8.8 FL Neutrophils (%) (Auto) 91.5 % 87.0 % Lymphocytes (%) (Auto) 4.6 % 6.8 % Monocytes (%) (Auto) 3.8 % 6.1 % Eosinophils (%) (Auto) 0.0 % 0.0 % Basophils (%) (Auto) 0.1 % 0.1 % Neutrophils # (Auto) 10.6 TH/MM3 9.2 TH/MM3 Lymphocytes # (Auto) 0.5 TH/MM3 0.7 TH/MM3 Monocytes # (Auto) 0.4 TH/MM3 0.7 TH/MM3 Eosinophils # (Auto) 0.0 TH/MM3 0.0 TH/MM3 Basophils # (Auto) 0.0 TH/MM3 0.0 TH/MM3 CBC Comment DIFF FINAL DIFF FINAL Differential Comment Laboratory Tests Test 02/22/17 02/22/17 02/23/17 05:49 15:18 05:55 Sodium Level 145 MEQ/L 144 MEQ/L Potassium Level 3.1 MEQ/L 3.5 MEQ/L 3.0 MEQ/L Chloride Level 118 MEQ/L 111 MEQ/L Carbon Dioxide Level 16.4 MEQ/L 21.0 MEQ/L Anion Gap 11 MEQ/L 12 MEQ/L Blood Urea Nitrogen 29 MG/DL 33 MG/DL Creatinine 1.82 MG/DL 1.89 MG/DL Estimat Glomerular Filtration 36 ML/MIN 34 ML/MIN Rate Random Glucose 139 MG/DL 96 MG/DL Calcium Level 6.9 MG/DL 7.1 MG/DL Protein Corrected Calcium 8.0 MG/DL 8.1 MG/DL Phosphorus Level 2.4 MG/DL Magnesium Level 1.8 MG/DL Total Protein 5.0 GM/DL 5.2 GM/DL Microbiology Date/Time Procedure Status Source Growth 02/20/17 21:45 - Final Complete Stool Stool NO ENTERIC PATHOGENS DETECTED BY PCR... 02/20/17 21:45 Cryptosporidium Exam - Final Complete Stool Stool NEGATIVE - NO CRYPTOSPORIDIUM ANTIGEN... 02/20/17 21:45 Giardia Antigen (CESAR) - Final Complete Stool Stool NEGATIVE - NO GIARDIA ANTIGEN DETECTE... Imaging Last Impressions Renal Ultrasound 02/22/17 0000 Signed Impressions: Service Date/Time: Wednesday, February 22, 2017 16:51 - CONCLUSION: 1. Increased renal echogenicity characteristic of mild medical renal disease. No hydronephrosis. Bladder decompressed by Galvez. Sai Markham MD Abdomen X-Ray 02/21/17 0000 Signed Impressions: Service Date/Time: Tuesday, February 21, 2017 03:24 - CONCLUSION: 1. Resolution of the previously seen dilated small bowel. 2. Sclerotic metastasis involving the right pelvis. Christopher Saldana Jr., MD Abdomen/Pelvis CT 02/20/17 0000 Signed Impressions: Service Date/Time: Monday, February 20, 2017 10:42 - CONCLUSION: 1. Air and fluid distention of multiple small bowel loops with a discrete transition in the right lower abdominal quadrant in the region of the ilium. Findings are concerning for at least a partial small bowel obstruction 2. 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 3. Asymmetric enlargement of the right iliac is muscle belly. This may be due to tumoral involvement. 4. Probable prostatectomy and iliac micaela dissection. 5. Bibasilar atelectatic changes. Old granulomatous disease. 6. Results were discussed with Dr. Easley at the time of this dictation. Haim Block MD Head CT 02/19/171954 Signed Impressions: Service Date/Time: January 20:19 - CONCLUSION: 1. No acute intracranial abnormalities. Sai Markham MD Chest X-Ray 02/19/171954 Signed Impressions: Service Date/Time: January 20:05 - CONCLUSION: 1. Linear atelectasis or scarring at the lung bases. No effusion or pneumothorax. Sai Markham MD Physical Exam CONSTITUTIONAL/GENERAL:awake OOB in a chair. TUBES/LINES/DRAINS: SKIN: No jaundice, rashes, or lesions. Ecchymoses on upper extremities. No wounds seen anteriorly. Skin temperature appropriate. Not diaphoretic. EYES: Pupils equal and round and reactive. Extraocular motions intact. No scleral icterus. No injection or drainage. Fundi not examined. CARDIOVASCULAR: Regular rate and rhythm without murmurs, gallops, or rubs. No JVD. Peripheral pulses symmetric. Good perfusion RESPIRATORY/CHEST: Symmetric, unlabored respirations. Clear to auscultation. Breath sounds equal bilaterally. No wheezes, rales, or rhonchi. GASTROINTESTINAL: Abdomen soft, non-tender, mildly distended; Bowel sounds present. GENITOURINARY: Without palpable bladder distension. Galvez catheter in place with cloudy yellow urine MUSCULOSKELETAL: Extremities without clubbing, cyanosis, or edema. No mottling NEUROLOGICAL: awake alert, non focal Assessment & Plan Remarks Sepsis, septic shock: clinically resolved - most likley source is UTI with sepsis vs intraabdominal 2/2 SBO - clinically unstable Lactic acidosis: resolved Fever : resolved ARF - 2/2 sepsis Small bowell obstruction - sx ff; recommended nonoperative treatment at this time UTI, E.coli frederick S Know metastaatic prostate Ca H/o prostatectomy -dc zosyn - fu blood clx untill final - fu clinically - l switch to po levaquine to complete course for UTito complete the treatment Stefani Mcdonnell MD Feb 23, 2017 13:27
--- NOTE | 2017-02-23 13:33 | HHI.NPPN ---
Subjective History of Present Illness 81 year old with metastatic Prostate Ca ARF Objective Data Data 02/22/17 02/23/17 19:00 07:00 Intake Total 656 ml 893 ml Output Total 400 ml 1200 ml Balance 256 ml -307 ml Intake Oral 160 ml IV Total 656 ml 733 ml Output Urine Total 400 ml 1200 ml # Bowel Movements 1 Vital Signs Date Time Temp Pulse Resp B/P Pulse Ox O2 Delivery O2 Flow Rate FiO2 02/23/17 12:00 97.9 66 18 120/65 02/23/17 12:00 65 02/23/17 11:02 72 02/23/17 08:37 95 02/23/17 08:00 97.7 68 20 148/82 02/23/17 08:00 72 02/23/17 06:00 68 02/23/17 04:00 63 02/23/17 04:00 98.0 63 22 122/72 96 02/23/17 02:00 68 02/23/17 00:00 70 02/23/17 00:00 98.2 70 20 133/78 95 02/22/17 22:00 74 02/22/17 20:00 75 02/22/17 20:00 97.9 75 18 151/81 96 02/22/17 18:00 79 02/22/17 16:00 98.4 86 16 156/91 97 02/22/17 16:00 77 02/22/17 14:00 85 -: 02/23/17 0555 02/23/17 0555 Physical Exam General Appearance: Well Developed, Well Nourished Eyes Eye Exam: Pupils Equal Neck Neck Exam: Neck Supple Pulmonary Resp Exam: Clear Bilaterally, Breath Sounds Equal Cardiology CV Exam: Regular, Normal Sinus Rhythm Gastrointestinal/Abdomen GI Exam: Soft, Non-Tender, Bowel Sounds Present Extremeties Extremities Exam: No Edema Assessment/Plan Problem List: (1) Acute renal failure Plan: Patient ARF stable non oliguric K low replace follow BMP avoid nephrotoxins US Kidney inc echogenicity (2) Small bowel obstruction Plan: Continue to monitor (3) Septic shock Plan: Continue supportive care (4) UTI (urinary tract infection) Plan: on Levaquin for Escherichia coli Problem Qualifiers (1) Acute renal failure: Qualified Code: N17.9 - Acute renal failure, unspecified acute renal failure type (2) UTI (urinary tract infection): Qualified Code: N39.0 - Urinary tract infection without hematuria, site unspecified Izabel Goodman MD Feb 23, 2017 13:33
[2017-02-23] MEDS: POTASSIUM CHLORIDE 20 MEQ CONTROLLED RELEASE TAB PO SCH ×2 (14:03→21:15)
[2017-02-23] MEDS: LEVOFLOXACIN 500 MG TAB PO SCH (14:03)
--- NOTE | 2017-02-23 23:58 | HHI.PR ---
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 He presented to the [facility] ED last night with a history of intractable nausea and vomiting x1 day and altered mental status. On arrival to the ED the patient had a fever with a T-max of 103.3 and early this morning he became hypotensive with a systolic blood pressure in the 70s to 80s. The patient was given approximately four liters of crystalloids and was initially admitted under the hospitalist service. His initial laboratory data from last night showed renal failure with creatinine of 1.88 and elevated lactic acid level of 3.5. There was no evidence of any leukocytosis. CT scan of the brain was obtained which showed no acute intracranial abnormality and a chest x-ray in the ER showed linear atelectasis / scarring at the lung bases. He was given vancomycin and cefepime. Due to persistent hypotension the patient was started on Levophed which is currently at 20 mcg and a right femoral central line was placed by the ED physician. His labs from this morning showed worsening renal function with creatinine level of 1.93. Urinalysis showed moderate leukocyte esterase, 10 wbc 's, moderate bacteria. He denies any chest pain, shortness of breath or abdominal pain, however, he reports intermittent abdominal cramps associated with his nausea and vomiting. The patient states that he had homemade frozen food and shortly after he developed his nausea and vomiting along with diarrhea. The patient just finished a seven-day course of antibiotics for a bladder infection. The patient denies any orthopnea, PND or edema of the lower extremities. 02/21 Patient is off Levophed. Awake and alert afebrile. KUB from this morning showed resolution of previously seen dilated small bowel. 02/22 No acute events overnight. Afebrile. 02/23patient seen today around 2 PM. Says he is feeling all right. Would like to go home soon. Objective Vital Signs Date Time Temp Pulse Resp B/P Pulse Ox O2 Delivery O2 Flow Rate FiO2 02/23/17 20:00 75 02/23/17 20:00 98.0 74 22 139/82 94 02/23/17 19:23 97 21 02/23/17 18:00 75 02/23/17 16:00 97.9 77 20 149/83 02/23/17 16:00 72 02/23/17 14:00 72 02/23/17 12:00 97.9 66 18 120/65 02/23/17 12:00 65 02/23/17 11:02 72 02/23/17 08:37 95 02/23/17 08:00 97.7 68 20 148/82 02/23/17 08:00 72 02/23/17 06:00 68 02/23/17 04:00 63 02/23/17 04:00 98.0 63 22 122/72 96 02/23/17 02:00 68 02/23/17 00:00 70 02/23/17 00:00 98.2 70 20 133/78 95 I/O 02/22/17 02/22/17 02/22/17 02/23/17 02/23/17 02/23/17 07:00 15:00 23:00 07:00 15:00 23:00 Intake Total 597 ml 656 ml 535 ml 358 ml 750 ml 704 ml Output Total 400 ml 400 ml 750 ml 450 ml 1300 ml 450 ml Balance 197 ml 256 ml -215 ml -92 ml -550 ml 254 ml Intake Oral 80 ml 120 ml 40 ml 400 ml 350 ml IV Total 517 ml 656 ml 415 ml 318 ml 350 ml 354 ml Output Urine Total 300 ml 400 ml 750 ml 450 ml 950 ml 450 ml Stool Total 100 ml 350 ml # Bowel Movements 1 0 3 2 Result Diagram: 02/23/17 0555 02/23/17 0555 Other Results GENERAL: patient sitting up in bed. Appears comfortable. Alert and oriented 3. SKIN: Warm and dry. HEAD: Normocephalic. EYES: No scleral icterus. No injection or drainage. NECK: Supple, trachea midline. No JVD. CARDIOVASCULAR: Regular rate and rhythm without murmurs, gallops, or rubs. RESPIRATORY: Breath sounds equal bilaterally. No accessory muscle use. GASTROINTESTINAL: Abdomen soft, non-tender, nondistended. MUSCULOSKELETAL: No cyanosis, or edema. BACK: Nontender without obvious deformity. No CVA tenderness. A/P Assessment and Plan //Severe Sepsis on admission with fever, tachycardia UTI, DAYA, shock -With lactic acidosis which has resolved. -Likely secondary to Escherichia coli UTI, however infectious disease consultation, and requests follow-up blood cultures on admission until final. -Continue Levaquin to complete 10 day course for A UTI. //Complicated UTI with shock on admission -No hydronephrosis on ultrasound. -Continue on Levaquin. Complete total 10 day course. //suspected acute kidney injury. //hypokalemia. Creatinine 1.8, stable today. Continue to monitor urine output. Appreciate nephrology assistance. -potassium replacement as per nephrology.Patient reports that his creatinine has been as high as 1.3 in the past, however have requested outside records from primary care for baseline. If continues stable, can likely discharge on //Adrenal insufficiency. Chronic steroids. Contributing the shock. Continue stress dose steroids. Can taper slowly //Intractable nausea and vomiting. likely secondary to small bowel obstruction which has resolved versus adrenal insufficiency in the setting of sepsis. // Hypernatremia. Acute. Improving with fluids. Appreciate nephrology assistance //Partial SBO. On initial imaging, however appears to be resolved.. Surgery was consult, but has signed off. //History of hypertension. Blood pressure acceptable. Continue medications as ordered. //History of coronary artery disease. //History of prostate CA with bone mets. -= Hold chemotherapy while here. Follow-up with oncology as outpatient. GI prophylaxis with Protonix 40 mg daily. DVT prophylaxis with heparin subcu. Discharge Planning order patient transfer to floor. Scope therapy recommends rehabilitation. Patient may benefit from rehabilitation, however suspect thathe may be able to go home. Weight physical therapy repeat evaluation. Bean Foreman MD Feb 23, 2017 23:58
[2017-02-24] VITALS (10 sets, daily range): BP systolic 146–181; BP diastolic 81–97; PULSE 64–99; RESP 16–22; TEMP 96.2–98.1; O2SAT 94–98
[2017-02-24] MEDS: INSULIN NovoLIN REGULAR SUPPLEMENTAL SCALE SQ SCH ×6 (00:54→21:00)
[2017-02-24] MEDS: HYDROCORTISONE SOD SUCCINATE 100 MG VIAL IV PUSH SCH ×2 (05:18→16:23)
[2017-02-24 05:43] LABS: AUTOMATED NEUTROPHIL # 5.8 TH/MM3 (1.8-7.7); BASOPHIL % 0.1 % (0.0-2.0); HEMATOCRIT 29.6 % (39.0-51.0); HEMO FLAGS DIFF FINAL; LYMPH % 9.4 % (9.0-44.0); LYMPHOCYTE # 0.7 TH/MM3 (1.0-4.8); MEAN CELL VOLUME 91.7 FL (80.0-100.0); MEAN CORPUSCULAR HEMOGLOBIN 31.9 PG (27.0-34.0); MEAN CORPUSCULAR HGB CONC 34.8 % (32.0-36.0); MONO % 9.4 % (0.0-8.0); NEUT % 81.1 % (16.0-70.0); PLATELET COUNT 173 TH/MM3 (150-450); RED BLOOD COUNT 3.23 MIL/MM3 (4.50-5.90); RED CELL DISTRIBUTION WIDTH 13.5 % (11.6-17.2); WHITE BLOOD COUNT 7.2 TH/MM3 (4.0-11.0)
[2017-02-24 06:02] LABS: BICARBONATE 21.8 MEQ/L (21.0-32.0)
[2017-02-24 06:25] LABS: CALCIUM-PROTEIN CORRECTED 7.9 MG/DL (8.5-10.1)
[2017-02-24] MEDS: POTASSIUM CHLORIDE 20 MEQ CONTROLLED RELEASE TAB PO SCH ×2 (09:00→23:32)
[2017-02-24] MEDS: HEPARIN SODIUM - SQ 10,000 UNITS/ML VIAL SQ SCH ×2 (09:00→21:00)
[2017-02-24] MEDS: SODIUM CHLORIDE 0.9% FLUSH 10 ML FLUSH IV FLUSH SCH ×2 (09:00→21:00)
[2017-02-24] MEDS: PANTOPRAZOLE SODIUM 40 MG VIAL IV PUSH SCH (09:00)
[2017-02-24] MEDS ORDERED: POTASSIUM PHOSPHATE MONOBASIC 500 MG TAB PO ONE (12:15)
--- NOTE | 2017-02-24 12:20 | HHI.NPPN ---
Subjective History of Present Illness 81 year old with metastatic Prostate Ca ARF Objective Data Data 02/23/17 02/24/17 19:00 07:00 Intake Total 750 ml 1400 ml Output Total 1300 ml 850 ml Balance -550 ml 550 ml Intake Oral 400 ml 700 ml IV Total 350 ml 700 ml Output Urine Total 950 ml 850 ml Stool Total 350 ml # Bowel Movements 3 3 Vital Signs Date Time Temp Pulse Resp B/P Pulse Ox O2 Delivery O2 Flow Rate FiO2 02/24/17 12:00 98.1 64 22 163/91 97 02/24/17 08:00 65 02/24/17 08:00 98.1 64 22 170/89 97 02/24/17 04:00 98.1 66 22 158/81 97 02/24/17 00:00 97.9 67 22 146/82 95 02/23/17 20:00 75 02/23/17 20:00 98.0 74 22 139/82 94 02/23/17 19:23 97 21 02/23/17 18:00 75 02/23/17 16:00 97.9 77 20 149/83 02/23/17 16:00 72 02/23/17 14:00 72 -: 02/24/17 0443 02/24/17 0443 Physical Exam General Appearance: Well Developed, Well Nourished Eyes Eye Exam: Pupils Equal Neck Neck Exam: Neck Supple Pulmonary Resp Exam: Clear Bilaterally, Breath Sounds Equal Cardiology CV Exam: Regular, Normal Sinus Rhythm Gastrointestinal/Abdomen GI Exam: Soft, Non-Tender, Bowel Sounds Present Extremeties Extremities Exam: No Edema Assessment/Plan Problem List: (1) Acute renal failure Plan: Patient ARF stable non oliguric creatinine declined K low on replacement dc Galvez give K PHOS X1 follow BMP avoid nephrotoxins US Kidney inc echogenicity (2) Small bowel obstruction Plan: Continue to monitor (3) Septic shock Plan: Continue supportive care (4) UTI (urinary tract infection) Plan: on Levaquin for Escherichia coli Problem Qualifiers (1) Acute renal failure: Qualified Code: N17.9 - Acute renal failure, unspecified acute renal failure type (2) UTI (urinary tract infection): Qualified Code: N39.0 - Urinary tract infection without hematuria, site unspecified Izabel Goodman MD Feb 24, 2017 12:20
[2017-02-24 13:46] LABS: BICARBONATE 23.3 MEQ/L (21.0-32.0); POTASSIUM 3.5 MEQ/L (3.5-5.1)
[2017-02-24 14:57] LABS: CALCIUM-PROTEIN CORRECTED 7.8 MG/DL (8.5-10.1)
--- NOTE | 2017-02-24 15:41 | HHI.PR ---
Subjective Remarks The patient was resting comfortably. He says he still has diarrhea. He says his stools are more formed. He says his chemotherapy has been on hold. Discussed with nursing. Objective Vitals Vital Signs Date Time Temp Pulse Resp B/P Pulse Ox O2 Delivery O2 Flow Rate FiO2 02/24/17 13:00 96.2 73 16 165/88 97 02/24/17 12:33 97 21 02/24/17 12:00 98.1 64 22 163/91 97 02/24/17 08:00 65 02/24/17 08:00 98.1 64 22 170/89 97 02/24/17 04:00 98.1 66 22 158/81 97 02/24/17 00:00 97.9 67 22 146/82 95 02/23/17 20:00 75 02/23/17 20:00 98.0 74 22 139/82 94 02/23/17 19:23 97 21 02/23/17 18:00 75 02/23/17 16:00 97.9 77 20 149/83 02/23/17 16:00 72 I/O 02/23/17 02/23/17 02/23/17 02/24/17 02/24/17 02/24/17 07:00 15:00 23:00 07:00 15:00 23:00 Intake Total 358 ml 750 ml 704 ml 696 ml Output Total 450 ml 1300 ml 450 ml 400 ml Balance -92 ml -550 ml 254 ml 296 ml Intake Oral 40 ml 400 ml 350 ml 350 ml IV Total 318 ml 350 ml 354 ml 346 ml Output Urine Total 450 ml 950 ml 450 ml 400 ml Stool Total 350 ml # Bowel Movements 0 3 2 1 Result Diagram: 02/24/17 0443 02/24/17 1251 Imaging Last Impressions Renal Ultrasound 02/22/17 0000 Signed Impressions: Service Date/Time: Wednesday, February 22, 2017 16:51 - CONCLUSION: 1. Increased renal echogenicity characteristic of mild medical renal disease. No hydronephrosis. Bladder decompressed by Galvez. Sai Markham MD Abdomen X-Ray 02/21/17 0000 Signed Impressions: Service Date/Time: Tuesday, February 21, 2017 03:24 - CONCLUSION: 1. Resolution of the previously seen dilated small bowel. 2. Sclerotic metastasis involving the right pelvis. Christopher Saldana Jr., MD Abdomen/Pelvis CT 02/20/17 0000 Signed Impressions: Service Date/Time: Monday, February 20, 2017 10:42 - CONCLUSION: 1. Air and fluid distention of multiple small bowel loops with a discrete transition in the right lower abdominal quadrant in the region of the ilium. Findings are concerning for at least a partial small bowel obstruction 2. 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 3. Asymmetric enlargement of the right iliac is muscle belly. This may be due to tumoral involvement. 4. Probable prostatectomy and iliac mciaela dissection. 5. Bibasilar atelectatic changes. Old granulomatous disease. 6. Results were discussed with Dr. Easley at the time of this dictation. Haim Block MD Head CT 02/19/171954 Signed Impressions: Service Date/Time: January 20:19 - CONCLUSION: 1. No acute intracranial abnormalities. Sai Markham MD Chest X-Ray 02/19/171954 Signed Impressions: Service Date/Time: January 20:05 - CONCLUSION: 1. Linear atelectasis or scarring at the lung bases. No effusion or pneumothorax. Sai Markham MD Objective Remarks GENERAL: Resting comfortably and in no acute distress. SKIN: Warm and dry. HEAD: Normocephalic. EYES: No scleral icterus. No injection or drainage. NECK: Supple, trachea midline. No JVD. CARDIOVASCULAR: Regular rate and rhythm without murmurs, gallops, or rubs. RESPIRATORY: Breath sounds equal bilaterally. No accessory muscle use. GASTROINTESTINAL: Abdomen soft, non-tender, nondistended. MUSCULOSKELETAL: No cyanosis, or edema. BACK: Nontender without obvious deformity. No CVA tenderness. PSYCH: Mood and affect appropriate. Medications and IVs Current Medications Medications (Trade) Dose Ordered Sig/Hamzah Route Start Time Stop Time Status Last Admin (NS Flush) 2 ml UNSCH PRN IV FLUSH 02/19/17 23:00 (NS Flush) 2 ml BID IV FLUSH 02/20/17 09:00 02/24/17 09:00 (Narcan Inj) 0.4 mg UNSCH PRN IV 02/19/17 23:00 (Brethine Inj) 1 mg UNSCH PRN SQ 02/20/17 04:30 (Protonix Inj) 40 mg DAILY IV PUSH 02/20/17 09:00 02/24/17 09:00 Miscellaneous Information 1 Q361D XX 02/20/17 08:30 02/20/17 08:30 (Chlorhexidine 2% Cloth) 3 pack Taper DAILY@04 TOP 02/21/17 04:00 02/17/18 03:59 02/23/17 21:19 (Chlorhexidine 2% Cloth) 3 pack UNSCH PRN TOP 02/20/17 08:30 Heparin Sodium (Porcine) 5000 units 5,000 units Q12HR SQ 02/20/17 21:00 02/24/17 09:00 (D5W 1000 ml Inj) 1,000 ml @ 50 mls/hr Q20H IV 02/21/17 09:00 02/23/17 21:19 (D50w (Vial) Inj) 25 ml UNSCH PRN IV PUSH 02/21/17 08:30 (Glucagon Inj) 1 mg UNSCH PRN OTHER 02/21/17 08:30 (NovoLIN R SUPPLEMENTAL SCALE) 1 Q4H SQ 02/21/17 09:00 02/23/17 17:00 (Levaquin) 500 mg Q48H PO 02/23/17 14:00 02/23/17 14:03 (KCl) 20 meq Q12HR PO 02/23/17 14:00 02/24/17 09:00 (Pravachol) 40 mg HS PO 02/24/17 21:00 (SoluCORTEF INJ) 25 mg Q12H IV PUSH 02/24/17 18:00 (Flomax) 0.4 mg DAILY PO 02/24/17 16:00 UNV A/P Problem List: (1) Septic shock ICD Code: A41.9 Status: Acute (2) UTI (urinary tract infection) ICD Code: N39.0 Status: Acute Assessment and Plan Severe Sepsis On admission with fever, tachycardia. Lactic acidosis has resolved. Likely secondary to Escherichia coli UTI. - Continue Levaquin per ID. Complicated UTI With shock on admission. No hydronephrosis on ultrasound. ID consult appreciated. - Continue on Levaquin to complete total 10 day course. Acute on chronic kidney disease Appreciate nephrology assistance. Nonoliguric. Improving. - potassium and phosphorous replacement as per nephrology. - follow BMP and avoid nephrotoxic agents. - IVFs. Adrenal insufficiency On chronic steroids. - Continue stress dose steroids, taper slowly. Weaned 02/24. Intractable nausea and vomiting Likely secondary to small bowel obstruction which has resolved. Surgery signed off. - ADAT. Diarrhea C diff negative. Likely s/t antibiotics. - ADAT. Hypertension Blood pressure has been elevated. - taper steroids. History of prostate CA With bone mets. - Hold chemotherapy while here. Follow-up with oncology as outpatient. GI prophylaxis with Protonix 40 mg daily. DVT prophylaxis with heparin subcu. Discharge Planning Anticipate d/c home in 1-2 days. Problem Qualifiers (1) UTI (urinary tract infection): Qualified Code: N39.0 - Urinary tract infection without hematuria, site unspecified Tino Harley DO Feb 24, 2017 15:41
[2017-02-24] MEDS: TAMSULOSIN HCL 0.4 MG CAP PO SCH (16:25)
[2017-02-24] MEDS: DEXTROSE 5% IN WATE 1000ML INJ 1,000 ML IV SCH (16:25)
[2017-02-24] MEDS: PRAVASTATIN SOD 40 MG TAB PO SCH (21:00)
[2017-02-25] VITALS (7 sets, daily range): BP systolic 137–165; BP diastolic 71–83; PULSE 74–88; RESP 17–20; TEMP 95.5–97.1; O2SAT 95–97
[2017-02-25] MEDS: INSULIN NovoLIN REGULAR SUPPLEMENTAL SCALE SQ SCH ×6 (01:00→20:27)
[2017-02-25] MEDS: CHLORHEXIDINE GLUCONATE 2 % 1 PACK (2 CLOTHS) TOP SCH (04:00)
[2017-02-25 05:23] LABS: BICARBONATE 20.7 MEQ/L (21.0-32.0)
[2017-02-25 05:26] LABS: HEMATOCRIT 32.5 % (39.0-51.0); MEAN CELL VOLUME 91.5 FL (80.0-100.0); MEAN CORPUSCULAR HEMOGLOBIN 32.1 PG (27.0-34.0); PLATELET COUNT 231 TH/MM3 (150-450); RED BLOOD COUNT 3.55 MIL/MM3 (4.50-5.90); RED CELL DISTRIBUTION WIDTH 13.9 % (11.6-17.2); REVIEW FLAG FINAL; WHITE BLOOD COUNT 7.2 TH/MM3 (4.0-11.0)
[2017-02-25] MEDS: HYDROCORTISONE SOD SUCCINATE 100 MG VIAL IV PUSH SCH (05:54)
[2017-02-25] MEDS: POTASSIUM CHLORIDE 20 MEQ CONTROLLED RELEASE TAB PO SCH ×2 (08:33→20:21)
[2017-02-25] MEDS: TAMSULOSIN HCL 0.4 MG CAP PO SCH (08:33)
[2017-02-25] MEDS: PANTOPRAZOLE SODIUM 40 MG VIAL IV PUSH SCH (08:35)
[2017-02-25] MEDS: HEPARIN SODIUM - SQ 10,000 UNITS/ML VIAL SQ SCH ×2 (08:37→20:21)
[2017-02-25] MEDS: SODIUM CHLORIDE 0.9% FLUSH 10 ML FLUSH IV FLUSH SCH ×2 (08:37→20:18)
[2017-02-25] MEDS ORDERED: TAMSULOSIN HCL 0.4 MG CAP PO SCH (09:00)
--- NOTE | 2017-02-25 09:42 | HHI.PR ---
Subjective Remarks The patient said he required a straight catheter overnight but since then has been urinating well. He said his diarrhea has been stable. He would like to go home soon. Has been ambulating. Discussed with nursing. Objective Vitals Vital Signs Date Time Temp Pulse Resp B/P Pulse Ox O2 Delivery O2 Flow Rate FiO2 02/25/17 08:00 95.5 75 18 148/82 95 02/25/17 04:00 96.7 82 20 165/83 95 02/25/17 00:00 97.1 74 20 143/83 96 02/24/17 23:18 99 02/24/17 20:06 98 21 02/24/17 20:00 96.5 85 20 181/97 94 02/24/17 16:00 96.2 66 17 151/83 97 02/24/17 13:00 96.2 73 16 165/88 97 02/24/17 12:33 97 21 02/24/17 12:00 98.1 64 22 163/91 97 I/O 02/24/17 02/24/17 02/24/17 02/25/17 02/25/17 02/25/17 07:00 15:00 23:00 07:00 15:00 23:00 Intake Total 696 ml 240 ml 1116 ml Output Total 400 ml 200 ml Balance 296 ml 240 ml 916 ml Intake Oral 350 ml 240 ml 120 ml IV Total 346 ml 996 ml Output Urine Total 400 ml 200 ml # Voids 0 # Bowel Movements 1 0 0 Result Diagram: 02/25/17 0403 02/25/17 0403 Imaging Last Impressions Renal Ultrasound 02/22/17 0000 Signed Impressions: Service Date/Time: Wednesday, February 22, 2017 16:51 - CONCLUSION: 1. Increased renal echogenicity characteristic of mild medical renal disease. No hydronephrosis. Bladder decompressed by Galvez. Sai Markham MD Abdomen X-Ray 02/21/17 0000 Signed Impressions: Service Date/Time: Tuesday, February 21, 2017 03:24 - CONCLUSION: 1. Resolution of the previously seen dilated small bowel. 2. Sclerotic metastasis involving the right pelvis. Christopher Saldana Jr., MD Abdomen/Pelvis CT 02/20/17 0000 Signed Impressions: Service Date/Time: Monday, February 20, 2017 10:42 - CONCLUSION: 1. Air and fluid distention of multiple small bowel loops with a discrete transition in the right lower abdominal quadrant in the region of the ilium. Findings are concerning for at least a partial small bowel obstruction 2. 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 3. Asymmetric enlargement of the right iliac is muscle belly. This may be due to tumoral involvement. 4. Probable prostatectomy and iliac micaela dissection. 5. Bibasilar atelectatic changes. Old granulomatous disease. 6. Results were discussed with Dr. Easley at the time of this dictation. Haim Block MD Head CT 02/19/171954 Signed Impressions: Service Date/Time: January 20:19 - CONCLUSION: 1. No acute intracranial abnormalities. Sai Markham MD Chest X-Ray 02/19/171954 Signed Impressions: Service Date/Time: January 20:05 - CONCLUSION: 1. Linear atelectasis or scarring at the lung bases. No effusion or pneumothorax. Sai Markham MD Objective Remarks GENERAL: Resting comfortably and in no acute distress. SKIN: Warm and dry. HEAD: Normocephalic. EYES: No scleral icterus. No injection or drainage. NECK: Supple, trachea midline. No JVD. CARDIOVASCULAR: Regular rate and rhythm without murmurs, gallops, or rubs. RESPIRATORY: Breath sounds equal bilaterally. No accessory muscle use. GASTROINTESTINAL: Abdomen soft, non-tender, nondistended. MUSCULOSKELETAL: No cyanosis, trace edema. BACK: Nontender without obvious deformity. No CVA tenderness. PSYCH: Mood and affect appropriate. Medications and IVs Current Medications Medications (Trade) Dose Ordered Sig/Hamzah Route Start Time Stop Time Status Last Admin (NS Flush) 2 ml UNSCH PRN IV FLUSH 02/19/17 23:00 (NS Flush) 2 ml BID IV FLUSH 02/20/17 09:00 02/24/17 21:00 (Narcan Inj) 0.4 mg UNSCH PRN IV 02/19/17 23:00 (Brethine Inj) 1 mg UNSCH PRN SQ 02/20/17 04:30 (Protonix Inj) 40 mg DAILY IV PUSH 02/20/17 09:00 02/25/17 08:35 Miscellaneous Information 1 Q361D XX 02/20/17 08:30 02/20/17 08:30 (Chlorhexidine 2% Cloth) 3 pack Taper DAILY@04 TOP 02/21/17 04:00 02/17/18 03:59 02/23/17 21:19 (Chlorhexidine 2% Cloth) 3 pack UNSCH PRN TOP 02/20/17 08:30 Heparin Sodium (Porcine) 5000 units 5,000 units Q12HR SQ 02/20/17 21:00 02/25/17 08:37 (D5W 1000 ml Inj) 1,000 ml @ 50 mls/hr Q20H IV 02/21/17 09:00 02/24/17 16:25 (D50w (Vial) Inj) 25 ml UNSCH PRN IV PUSH 02/21/17 08:30 (Glucagon Inj) 1 mg UNSCH PRN OTHER 02/21/17 08:30 (NovoLIN R SUPPLEMENTAL SCALE) 1 Q4H SQ 02/21/17 09:00 02/23/17 17:00 (Levaquin) 500 mg Q48H PO 02/23/17 14:00 02/23/17 14:03 (KCl) 20 meq Q12HR PO 02/23/17 14:00 02/25/17 08:33 (Pravachol) 40 mg HS PO 02/24/17 21:00 02/24/17 21:00 Tamsulosin HCl 0.4 mg 0.4 mg DAILY PO 02/24/17 16:00 02/25/17 08:33 (Sodium Phosphate Inj/NS Inj) 155 ml @ 38.75 mls/ hr ONCE ONCE IV 02/25/17 11:00 02/25/17 14:59 A/P Problem List: (1) Septic shock ICD Code: A41.9 Status: Acute (2) UTI (urinary tract infection) ICD Code: N39.0 Status: Acute Assessment and Plan Severe Sepsis On admission with fever, tachycardia. Lactic acidosis has resolved. Likely secondary to Escherichia coli UTI. - Continue Levaquin per ID. Complicated UTI With shock on admission. No hydronephrosis on ultrasound. ID consult appreciated. - Continue on Levaquin to complete total 10 day course. Acute on chronic kidney disease Appreciate nephrology assistance. Nonoliguric. Improving. - potassium and phosphorous replacement as per nephrology. - follow BMP and avoid nephrotoxic agents. - IVFs. Adrenal insufficiency On chronic steroids. - switch stress dose steroids to home dose 02/25. Intractable nausea and vomiting Likely secondary to small bowel obstruction which has resolved. Surgery signed off. - ADAT. Diarrhea C diff negative. Likely s/t antibiotics. - ADAT. Hypertension Blood pressure has been elevated. - taper steroids. History of prostate CA With bone mets. - Hold chemotherapy while here. Follow-up with oncology as outpatient. Urinary retention The pt required a straight cath but has been urinating well since. - continue Flomax. GI prophylaxis with Protonix 40 mg daily. DVT prophylaxis with heparin subcu. Discharge Planning Anticipate d/c home with [facility] in AM. Problem Qualifiers (1) UTI (urinary tract infection): Qualified Code: N39.0 - Urinary tract infection without hematuria, site unspecified Tino Harley DO Feb 25, 2017 09:41
--- NOTE | 2017-02-25 09:43 | HHI.DCPOC ---
Discharge Care Plan Diagnosis: (1) Small bowel obstruction (2) Acute renal failure (3) UTI (urinary tract infection) (4) Septic shock Goals to Promote Your Health * To prevent worsening of your condition and complications * To maintain your health at the optimal level Directions to Meet Your Goals Take your medications as prescribed Follow your dietary instruction Follow activity as directed Keep your appointments as scheduled Take your immunizations and boosters as scheduled If your symptoms worsen call your PCP, if no PCP go to Urgent Care Center or Emergency Room Smoking is Dangerous to Your Health. Avoid second hand smoke Call the 24-hour hour crisis hotline for domestic abuse at Tino Harley DO Feb 25, 2017 09:43
--- NOTE | 2017-02-25 09:51 | HHI.FF ---
Face to Face Verification Diagnosis: (1) Small bowel obstruction (2) Acute renal failure (3) UTI (urinary tract infection) (4) Septic shock Home Health Nursing Order: Medical education Signs/symptoms of disease process Medication education-adverse effect Nursing assessment with vital signs I have seen patient Fuentes Rutherford on 02/25/17. My clinical findings support the need for the requested home health care services because: Deconditioned w/ increased weakness I certify that my clinical findings support that this patient is homebound because: Unsteady gait/balance Unsafe to leave home unassisted Tino Harley DO Feb 25, 2017 09:51
[2017-02-25] MEDS ORDERED: PILL SPLITTER OTHER PRN (10:15)
[2017-02-25] MEDS ORDERED: SODIUM PHOSPHATE INJ 15 MMOL in SODIUM CHLORIDE 0.9% INJ 150 ML IV ONE (11:00)
[2017-02-25] MEDS: DEXTROSE 5% IN WATE 1000ML INJ 1,000 ML IV SCH (11:30)
[2017-02-25] MEDS: LEVOFLOXACIN 500 MG TAB PO SCH (14:05)
[2017-02-25 14:41] LABS: BICARBONATE 23.8 MEQ/L (21.0-32.0); POTASSIUM 3.4 MEQ/L (3.5-5.1)
[2017-02-25 14:53] LABS: CALCIUM-PROTEIN CORRECTED 8.1 MG/DL (8.5-10.1)
[2017-02-25] MEDS ORDERED: LEVA500T PO (16:27)
[2017-02-25] MEDS ORDERED: POTA20TA5 PO (16:27)
--- NOTE | 2017-02-25 16:30 | HHI.DS ---
Discharge Summary Admission Date Feb 19, 2017 at 21:41 Discharge Date: Feb 26, 2017 Admitting Diagnosis SEPSIS, UTI; AMS (1) Septic shock ICD Code: A41.9 Diagnosis: Principal (2) UTI (urinary tract infection) ICD Code: N39.0 Diagnosis: Principal Procedures None. Brief History - From Admission History from patient, ER physician for medication, interview of medical records. Patient reported that he came to the hospital because he was having nausea, vomiting, diarrhea. Next and he stated this started all of a sudden last night. He blames this on the lack son yet that he had. He stated it was homemade You but it was from the [place]. His who ate the same thing was not sick. Patient is unsure whether he had fever at home. However in the emergency room, patient has documented fever of 103. He denies any cough. Denies any ear discharge/neck rigidity. Denies any urinary burning or pain on urination or frequent urination. However patient states that he was being treated for bladder infection recently. He states he completed 7 days course of antibiotics for his bladder infection. He states his last dose of antibiotics was 4 days ago. He reports that on December 02, 2016, he did have cystoscopy done for looking into his bladder. He states he developed this UTI after the procedure. Patient reports of history of prostate cancer for which he had radical prostatectomy about 20 years ago. He states that he then received radiation treatment about 6 years ago and completed that. He is currently now on oral chemotherapy daily for the past 2 years or so. 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 In the emergency room, patient's blood pressure was around 80s over 50s. He did receive 1 L normal saline bolus by ambulance personnel prior to arrival. He was awake alert and oriented. Not tachycardic. He was given vancomycin and cefepime in ER. CBC/BMP: 02/25/17 0403 02/25/17 1345 Significant Findings Laboratory Tests Test 02/23/17 02/24/17 02/24/17 02/25/17 05:55 04:43 12:51 04:03 Red Blood Count 3.29 MIL/MM3 3.23 MIL/MM3 3.55 MIL/MM3 (4.50-5.90) (4.50-5.90) (4.50-5.90) Hemoglobin 10.4 GM/DL 10.3 GM/DL 11.4 GM/DL (13.0-17.0) (13.0-17.0) (13.0-17.0) Hematocrit 30.6 % 29.6 % 32.5 % (39.0-51.0) (39.0-51.0) (39.0-51.0) Neutrophils (%) (Auto) 87.0 % 81.1 % (16.0-70.0) (16.0-70.0) Lymphocytes (%) (Auto) 6.8 % (9.0-44.0) Neutrophils # (Auto) 9.2 TH/MM3 (1.8-7.7) Lymphocytes # (Auto) 0.7 TH/MM3 0.7 TH/MM3 (1.0-4.8) (1.0-4.8) Potassium Level 3.0 MEQ/L 3.0 MEQ/L 3.0 MEQ/L (3.5-5.1) (3.5-5.1) (3.5-5.1) Chloride Level 111 MEQ/L 113 MEQ/L 112 MEQ/L 113 MEQ/L (98-107) (98-107) (98-107) (98-107) Blood Urea Nitrogen 33 MG/DL (7-18) 32 MG/DL (7-18) 30 MG/DL (7-18) 25 MG/DL (7- 18) Creatinine 1.89 MG/DL 1.58 MG/DL 1.52 MG/DL 1.44 MG/DL (0.60-1.30) (0.60-1.30) (0.60-1.30) (0.60-1.30) Estimat Glomerular Filtration 34 ML/MIN (>89) 42 ML/MIN (>89) 44 ML/MIN (>89) 47 ML/MIN (>89) Rate Calcium Level 7.1 MG/DL 6.9 MG/DL 7.1 MG/DL 7.1 MG/DL (8.5-10.1) (8.5-10.1) (8.5-10.1) (8.5-10.1) Protein Corrected Calcium 8.1 MG/DL 7.9 MG/DL 7.8 MG/DL 8.0 MG/DL (8.5-10.1) (8.5-10.1) (8.5-10.1) (8.5-10.1) Total Protein 5.2 GM/DL 5.1 GM/DL 5.8 GM/DL 5.4 GM/DL (6.4-8.2) (6.4-8.2) (6.4-8.2) (6.4-8.2) Monocytes (%) (Auto) 9.4 % (0.0-8.0) Phosphorus Level 1.4 MG/DL 1.4 MG/DL (2.5-4.9) (2.5-4.9) Albumin 2.4 GM/DL (3.4-5.0) Carbon Dioxide Level 20.7 MEQ/L (21.0-32.0) Test 02/25/17 13:45 Potassium Level 3.4 MEQ/L (3.5-5.1) Chloride Level 112 MEQ/L (98-107) Blood Urea Nitrogen 23 MG/DL (7-18) Creatinine 1.38 MG/DL (0.60-1.30) Estimat Glomerular Filtration 49 ML/MIN (>89) Rate Calcium Level 7.2 MG/DL (8.5-10.1) Protein Corrected Calcium 8.1 MG/DL (8.5-10.1) Total Protein 5.5 GM/DL (6.4-8.2) Imaging Last Impressions Renal Ultrasound 02/22/17 0000 Signed Impressions: Service Date/Time: Wednesday, February 22, 2017 16:51 - CONCLUSION: 1. Increased renal echogenicity characteristic of mild medical renal disease. No hydronephrosis. Bladder decompressed by Galvez. Sai Markham MD Abdomen X-Ray 02/21/17 0000 Signed Impressions: Service Date/Time: Tuesday, February 21, 2017 03:24 - CONCLUSION: 1. Resolution of the previously seen dilated small bowel. 2. Sclerotic metastasis involving the right pelvis. Christopher Saldana Jr., MD Abdomen/Pelvis CT 02/20/17 0000 Signed Impressions: Service Date/Time: Monday, February 20, 2017 10:42 - CONCLUSION: 1. Air and fluid distention of multiple small bowel loops with a discrete transition in the right lower abdominal quadrant in the region of the ilium. Findings are concerning for at least a partial small bowel obstruction 2. 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 3. Asymmetric enlargement of the right iliac is muscle belly. This may be due to tumoral involvement. 4. Probable prostatectomy and iliac micaela dissection. 5. Bibasilar atelectatic changes. Old granulomatous disease. 6. Results were discussed with Dr. Easley at the time of this dictation. Haim Block MD Head CT 02/19/171954 Signed Impressions: Service Date/Time: January 20:19 - CONCLUSION: 1. No acute intracranial abnormalities. Sai Markham MD Chest X-Ray 02/19/171954 Signed Impressions: Service Date/Time: January 20:05 - CONCLUSION: 1. Linear atelectasis or scarring at the lung bases. No effusion or pneumothorax. Sai Markham MD PE at Discharge GENERAL: Resting comfortably and in no acute distress. SKIN: Warm and dry. HEAD: Normocephalic. EYES: No scleral icterus. No injection or drainage. NECK: Supple, trachea midline. No JVD. CARDIOVASCULAR: Regular rate and rhythm without murmurs, gallops, or rubs. RESPIRATORY: Breath sounds equal bilaterally. No accessory muscle use. GASTROINTESTINAL: Abdomen soft, non-tender, nondistended. MUSCULOSKELETAL: No cyanosis, trace edema. BACK: Nontender without obvious deformity. No CVA tenderness. PSYCH: Mood and affect appropriate. Pt update on day of discharge The patient was anxious to go home. He had no acute complaints. He said he was urinating well. He has been ambulating. Discussed with nursing. Hospital Course Severe Sepsis On admission with fever, tachycardia and found to have an E coli UTI. He had a lactic acidosis which resolved with antibiotics and hydration. Complicated UTI The pt had shock on admission. Urine culture grew E coli. ID was consulted. Broad spectrum antibiotics were changed to Levaquin. Acute on chronic kidney disease No hydronephrosis on ultrasound. Nephrology was consulted. Creatinine improved with hydration. He received potassium and phosphorous replacement which will be continued upon discharge. He will have a BMP checked in 3-5 days. He will follow up with nephrology as an outpt. Adrenal insufficiency On chronic steroids as an outpt. He was started on stress dose steroids. Steroids were weaned. He will resume his home dose. Intractable nausea and vomiting/ Small bowel obstruction Surgery was consulted. The pt's obstruction resolved. His diet was advanced. Prostate Cancer Chemotherapy was held. He will follow-up with oncology as outpatient. Urinary retention The pt required a straight cath but has been urinating well since. He received Flomax. Pt Condition on Discharge: Good Discharge Disposition: Disch w/ Home Health Serv Discharge Time: > 30 minutes Discharge Instructions DIET: Follow Instructions for: As Tolerated, No Restrictions Activities you can perform: Weight Bearing as Archana Follow up Referrals: Nephrology - 1 Week PCP Follow-up - 1 Week New Orders: BASIC METABOLIC PROF - 3-5 Days PHOSPHORUS (PO4) - 3-5 Days New Medications: Pot Phos (Monobasic)-Sod Phos (di/monobasic) (Phospha 250 Neutral) 155-852-130 Mg Tab 1 TAB PO DAILY phosphorous #30 TAB Levofloxacin (Levaquin) 500 Mg Tab 500 MG PO Q48H UTI #2 TAB Potassium Chloride Microencaps (Potassium Chloride Microencaps) 20 Meq Tab 20 MEQ PO Q12HR Potassium #30 TAB Continued Medications: Abiraterone (Zytiga) 250 Mg Tab 1000 MG PO DAILY #1 HR LUNCHAC Hazardous agent; use appropriate precautions for handling & disposal. Take on an empty stomach, 1 hr before or 2 hrs after food. Swallow whole, do not crush or chew. Chemotherapy Management #120 Ref 0 TAB Alfuzosin ER 24 HR (Alfuzosin ER 24 HR) 10 Mg Tab 10 MG PO DAILY BPH #30 Ref 0 TAB Docusate Sodium (Colace) 100 Mg Cap 100 MG PO HS Constipation #60 Ref 0 CAP Metoprolol Tartrate (Metoprolol Tartrate) 25 Mg Tab 25 MG PO BID #60 Ref 0 TAB Pravastatin (Pravastatin) 40 Mg Tab 40 MG PO HS Cholesterol Management #30 Ref 0 TAB Prednisone (Prednisone) 2.5 Mg Tab 2.5 MG PO HS Ref 0 TAB Prednisone (Prednisone) 5 Mg Tab 5 MG PO DAILY Ref 0 TAB Tino Harley DO Feb 25, 2017 16:30 Tino Harley DO Feb 25, 2017 16:30
[2017-02-25] MEDS: PRAVASTATIN SOD 40 MG TAB PO SCH (20:21)
[2017-02-25] MEDS ORDERED: predniSONE 5 MG TAB PO SCH (21:00)
[2017-02-25] MEDS ORDERED: FLUTICASONE PROPIONATE 50 MCG/ACT 16 GM NASAL SPRAY NASAL PRN (21:45)
[2017-02-26] MEDS: INSULIN NovoLIN REGULAR SUPPLEMENTAL SCALE SQ SCH ×4 (00:29→12:31)
[2017-02-26] MEDS: CHLORHEXIDINE GLUCONATE 2 % 1 PACK (2 CLOTHS) TOP SCH (00:30)
[2017-02-26 04:12] VITALS: BP 151/77; PULSE 75; RESP 18; TEMP 97.7; O2SAT 94
[2017-02-26 06:11] LABS: BICARBONATE 22.7 MEQ/L (21.0-32.0); POTASSIUM 3.3 MEQ/L (3.5-5.1)
[2017-02-26 06:31] LABS: CALCIUM-PROTEIN CORRECTED 8.2 MG/DL (8.5-10.1)
[2017-02-26] MEDS: POTASSIUM CHLORIDE 20 MEQ CONTROLLED RELEASE TAB PO SCH (07:57)
[2017-02-26] MEDS: HEPARIN SODIUM - SQ 10,000 UNITS/ML VIAL SQ SCH (07:57)
[2017-02-26] MEDS: PANTOPRAZOLE SODIUM 40 MG VIAL IV PUSH SCH (07:58)
[2017-02-26] MEDS: TAMSULOSIN HCL 0.4 MG CAP PO SCH (07:58)
[2017-02-26] MEDS: SODIUM CHLORIDE 0.9% FLUSH 10 ML FLUSH IV FLUSH SCH (07:58)
[2017-02-26 08:00] VITALS: BP 166/87; PULSE 91; RESP 18; TEMP 97.5; O2SAT 95
[2017-02-26] MEDS: DEXTROSE 5% IN WATE 1000ML INJ 1,000 ML IV SCH (08:06)
[2017-02-26] MEDS ORDERED: PHOSTAB2 PO (08:42)
[2017-02-26] MEDS ORDERED: predniSONE 5 MG TAB PO SCH (09:00)
[2017-02-26] MEDS ORDERED: SODIUM PHOSPHATE INJ 15 MMOL in SODIUM CHLORIDE 0.9% INJ 150 ML IV ONE (11:00)
[2017-02-26 12:00] VITALS: BP 122/65; PULSE 93; RESP 16; TEMP 96.6; O2SAT 98
[2017-02-26 16:00] VITALS: BP 98/53; PULSE 68; RESP 16; TEMP 99.4; O2SAT 97
== END 2017-02-26 17:18 | disposition home health service (06) | DRG 871 ==
LOC: NEPC 19:20 → NEDA 21:41 → NEDH 02-20 01:41 → HIMN 02-20 08:45 → N07A 02-24 13:09
PROVIDERS: ADMIT Hospitalist; ATTEND Hospitalist
PROC: 06HN33Z Insertion of Infusion Device into Left Femoral Vein, Percutaneous Approach (ICD-10-PCS; principal; 2017-02-20)
DX: A41.9 Sepsis, unspecified organism (principal); R65.21 Severe sepsis with septic shock; N17.9 Acute kidney failure, unspecified; E87.0 Hyperosmolality and hypernatremia; K56.60 Unspecified intestinal obstruction; C79.51 Secondary malignant neoplasm of bone; E87.2 Acidosis; E27.3 Drug-induced adrenocortical insufficiency; N39.0 Urinary tract infection, site not specified; I25.10 Atherosclerotic heart disease of native coronary artery without angina pectoris; T38.0X5A Adverse effect of glucocorticoids and synthetic analogues, initial encounter; R32 Unspecified urinary incontinence; N18.9 Chronic kidney disease, unspecified; I12.9 Hypertensive chronic kidney disease with stage 1 through stage 4 chronic kidney disease, or unspecified chronic kidney disease; N40.0 Benign prostatic hyperplasia without lower urinary tract symptoms; E87.6 Hypokalemia; B96.20 Unspecified Escherichia coli [E. coli] as the cause of diseases classified elsewhere; Z87.891 Personal history of nicotine dependence; Z85.46 Personal history of malignant neoplasm of prostate; Z95.5 Presence of coronary angioplasty implant and graft
CPT/HCPCS: 36556; 36600; 51702; 70450; 71010; 74000; 74176; 76775; 80048; 80053; 80069; 80202; 81001; 82550; 82570; 82805; 82948; 83605; 83690; 83735; 83880; 84100; 84132; 84155; 84300; 84484; 85025; 85027; 85610; 85730; 87040; 87077; 87086; 87186; 87328; 87329; 87493; 87506; 87641; 87804; 93005; 96365; C9113; J0610; J0692; J1644; J1720; J2543; J3370; J3480; J7030; J7050; J7070; J7512

== ENCOUNTER 2019-01-06 10:59 | Inpatient (IN) ==
[2019-01-06] MEDS ORDERED: Morphine Inj 4 MG/ML Vial IV.PUSH ONE ×2 (12:05→13:52)
[2019-01-06 13:01] LABS: Baso # (Auto) 0.1 th/mm3 (0.0-0.2); Baso % (Auto) 0.7 % (0.0-2.0); Eos # (Auto) 0.3 th/mm3 (0.0-0.4); Eos % (Auto) 2.4 % (0.0-4.0); Hemoglobin 10.7 gm/dL (13.0-17.0); Lymph # (Auto) 1.7 th/mm3 (1.0-4.8); Lymph % (Auto) 14.5 % (9.0-44.0); Mean Corpuscular HGB Conc 33.5 % (32.0-36.0); Mean Corpuscular Hemoglobin 31.1 pg (27.0-34.0); Mean Corpuscular Volume 92.9 fL (80.0-100.0); Mean Platelet Volume 7.2 fL (7.0-11.0); Mono # (Auto) 1.5 th/mm3 (0.0-0.9); Mono % (Auto) 12.3 % (0.0-8.0); Neut # (Auto) 8.4 th/mm3 (1.8-7.7); Neut % (Auto) 70.1 % (16.0-70.0); Platelet Count 441 th/mm3 (150-450); Red Blood Count 3.44 mil/mm3 (4.50-5.90); Red Cell Distribution Width 15.3 % (11.6-17.2)
--- NOTE | 2019-01-06 13:04 | ED ---
HPI General Chief complaint: Urogenital-Male Stated complaint: ABDOMINAL Time Seen by Provider: 01/06/19 11:50 Source: patient Mode of arrival: EMS Limitations: no limitations History of Present Illness HPI Narrative: Patient is an 83-year-old male presenting to the emerge department for evaluation of hematuria, dysuria, urinary retention. Patient reports suprapubic pain and cramping, 7 out of 10, constant. Patient has long- term urinary catheter secondary to BPH. Patient reports he was in the emergency department last night with the same complaint. Needs given pain medicine which helped but did not completely resolve his pain. He has no other complaints at this time. MD Complaint: Reports dysuria Onset (ago): day(s) Duration: constant Location: Reports abdomen (Suprapubic) Severity: severe Severity scale (1-10): 9 Quality: Reports aching Relieving factors: urination Exacerbating factors: none Reports indwelling catheter Reports urinary retention and blood in urine Related Data Home Medications Medication Instructions Recorded Confirmed Lactobacillus rhamnosus GG 2 BID 01/06/19 [Culturelle] acetaminophen 650 PO Q4HR PRN 01/06/19 aspirin [Aspirin Low Dose] 81 PO DAILY 01/06/19 bisacodyl [Dulcolax (bisacodyl)] 10 MT DAILY PRN 01/06/19 cyanocobalamin (vitamin B-12) 1,000 mcg PO DAILY 01/06/19 01/07/19 enzalutamide [Xtandi] 160 mg PO DAILY 01/06/19 01/07/19 magnesium hydroxide [Milk of 30 ml PO PRN 01/06/19 Magnesia] metoprolol tartrate 12.5 PO BID 01/06/19 pantoprazole [Protonix] 40 mg PO DAILY 01/06/19 01/07/19 pravastatin 40 PO QPM 01/06/19 prednisone 2.5 mg PO QPM 01/06/19 01/07/19 prednisone 5 mg PO DAILY 01/06/19 01/07/19 sodium phosphates [Fleet Enema] 118 ml MT PRN PRN 01/06/19 01/07/19 tamsulosin 0.4 mg PO QPM 01/06/19 01/07/19 docusate sodium 100 mg PO QPM 01/07/19 01/07/19 ondansetron HCl [Zofran] 4 mg PO Q6HR PRN 01/07/19 01/07/19 Allergies Allergy/AdvReac Type Severity Reaction Status Date / Time Penicillins Allergy Itching Verified 01/06/19 02:12 Review of Systems ROS: all other systems reviewed are negative FOR[facility]LY [facility] Medical History Medical History Anemia (Acute) CHF (congestive heart failure) (Acute) Hypertension (Acute) Muscle weakness (Acute) 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 Appears uncomfortable, no acute distress. SKIN: Focused skin assessment warm/dry. HEAD: Atraumatic. Normocephalic. EYES: Pupils equal and round. No scleral icterus. No injection or drainage. ENT: No nasal bleeding or discharge. Mucous membranes pink and moist. NECK: Trachea midline. No JVD. CARDIOVASCULAR: Regular rate and rhythm. No murmur appreciated. RESPIRATORY: No accessory muscle use. Clear to auscultation. Breath sounds equal bilaterally. GASTROINTESTINAL: Abdomen soft, mildly tender to palpation to suprapubic region , nondistended. Hepatic and splenic margins not palpable. MUSCULOSKELETAL: No obvious deformities. No clubbing. No cyanosis. No edema. NEUROLOGICAL: Awake and alert. No obvious cranial nerve deficits. Motor grossly within normal limits. Normal speech. PSYCHIATRIC: Appropriate mood and affect; insight and judgment normal. Course Initial Documented Vital Signs Temperature 97.7 F 01/06/19 11:23 Pulse Rate 117 H 01/06/19 11:23 Respiratory Rate 18 01/06/19 11:23 Blood Pressure 142/68 H 01/06/19 11:23 Pulse Oximetry 100 01/06/19 11:23 Last Documented Vital Signs Temperature 99.1 F 01/07/19 16:02 Pulse Rate 112 H 01/07/19 16:02 Respiratory Rate 19 01/07/19 16:02 Blood Pressure 141/80 H 01/07/19 16:02 Pulse Oximetry 95 01/07/19 16:02 Medical Decision Making SHOAIB Attestation SHOAIB supervised visit: Yes Attestation: I, Dr. Corea, have reviewed the advance practice practitioner's documentation and am in agreement, met with the patient face to face, made the diagnosis, and the medical decision making was done by me. *My assessment and Findings: Hemorrhagic cystitis. Urinary retention. MDM Narrative Medical decision making narrative: Patient is an 83-year-old male pending for the second time in the last 12 hours for evaluation of urinary retention, hematuria. Patient is mildly tachycardic on arrival. Labs ordered and pending. Will replace urinary catheter with a three-way in order to irrigate if needed. Patient was given morphine and Pyridium. CBC with white blood cell count of 12.8, this is elevated when compared to prior from earlier this morning. BUN and creatinine are mildly elevated when compared to prior Urinalysis with innumerable white blood cells, large occult blood which is to be expected, patient has kartik hematuria. Patient was started on Azactam empirically, reflex culture is pending. Residents accepted admit on behalf of Dr. Graves, admit orders placed. Patient was given additional dose of morphine, he continued to complain of suprapubic pain. Patient is agreeable to stay. Medical Screen Exam Complete: Yes Emergency Medical Condition: Yes Differential Diagnosis Differential Diagnosis: UTI versus metabolic abnormality versus anemia versus obstruction versus other Medical Records Medical records reviewed: Yes I reviewed the patient's medical records. Lab Data Lab results reviewed: Yes I reviewed the patient's lab results. Result diagrams: 01/07/19 09:51 01/07/19 16:06 Lab Results 01/06/19 01/06/19 01/06/19 Range/Units 12:30 12:30 12:30 WBC 12.0 H (4.0-11.0) th/mm3 RBC 3.44 L (4.50-5.90) mil/mm3 Hgb 10.7 L (13.0-17.0) gm/dL Hct 32.0 L (39.0-51.0) % MCV 92.9 (80.0-100.0) fL MCH 31.1 (27.0-34.0) pg MCHC 33.5 (32.0-36.0) % RDW 15.3 (11.6-17.2) % Plt Count 441 (150-450) th/mm3 MPV 7.2 (7.0-11.0) fL Prelim Diff (Auto) Neut % (Auto) 70.1 H (16.0-70.0) % Lymph % (Auto) 14.5 (9.0-44.0) % [place] % (Auto) 12.3 H (0.0-8.0) % Eos % (Auto) 2.4 (0.0-4.0) % Baso % (Auto) 0.7 (0.0-2.0) % Neut # (Auto) 8.4 H (1.8-7.7) th/mm3 Lymph # (Auto) 1.7 (1.0-4.8) th/mm3 [place] # (Auto) 1.5 H (0.0-0.9) th/mm3 Eos # (Auto) 0.3 (0.0-0.4) th/mm3 Baso # (Auto) 0.1 (0.0-0.2) th/mm3 WBC Differential . Diff Scan Seg Neuts % (Manual) (16-70) % Band Neuts % (Manual) (0-6) % Lymphocytes % (Manual) (9-44) % Monocytes % (Manual) (0-8) % Abs Neuts (Manual) (1.8-7.7) th/mm3 Differential Comment Auto diff final Platelet Estimate (Normal) Platelet Morphology (Normal) Acanthocytes (Spur) (None) Keratocytes (None) ESR 95 H (0-20) mm/hr PT (9.8-11.6) sec INR Ratio APTT (23.4-31.7) sec Fibrinogen (227-377) mg/dL Sodium 137 (136-145) meq/L Potassium 4.8 (3.5-5.1) meq/L Chloride 104 (98-107) meq/L Carbon Dioxide 21.0 (21.0-32.0) meq/L Anion Gap 12 (5-15) meq/L BUN 20 H (7-18) mg/dL Creatinine 1.92 H (0.60-1.30) mg/dL Estimated GFR 33 L (>89) mL/min Random Glucose 157 H (74-106) mg/dL Lactic Acid (0.4-2.0) mmol/L Calcium 8.9 (8.5-10.1) mg/dL Calcium Adj for Albumin (8.5-10.1) mg/dL Total Bilirubin 0.6 (0.2-1.0) mg/dL AST 18 (15-37) U/L ALT 15 (12-78) U/L Alkaline Phosphatase 86 (45-117) U/L Troponin I (0.02-0.05) ng/mL C-Reactive Protein (0.00-0.30) mg/dL Total Protein 7.4 (6.4-8.2) g/dL Albumin 3.1 L (3.4-5.0) g/dL Triglycerides (42-150) mg/dL Cholesterol (120-200) mg/dL LDL Cholesterol, Calc (0-99) mg/dL HDL Cholesterol (40.0-60.0) mg/dL Cholesterol/HDL Ratio Ratio Urine Color (Yellw/Straw) Urine Clarity (Clear) Urine pH (5.0-8.5) Ur Specific [place] (1.002-1.035) Urine Protein (Neg-Trace) mg/dL Urine Glucose (UA) (Negative) mg/dL Urine Ketones (Negative) mg/dL Urine Occult Blood (Negative) Urine Nitrate (Negative) Urine Bilirubin (Negative) Urine Urobilinogen (Less than 2) mg/dL Ur Leukocyte Esterase (Negative) Urine RBC (0-3) /hpf Urine WBC (0-5) /hpf Urine WBC Clumps (None) Ur Squamous Epith Cells (0-5) /hpf Urine Bacteria (None) /hpf Micro UA Comment Ur Microscopic Review Urine Culture Comments 01/06/19 01/06/19 01/06/19 Range/Units 12:30 12:30 12:40 WBC (4.0-11.0) th/mm3 RBC (4.50-5.90) mil/mm3 Hgb (13.0-17.0) gm/dL Hct (39.0-51.0) % MCV (80.0-100.0) fL MCH (27.0-34.0) pg MCHC (32.0-36.0) % RDW (11.6-17.2) % Plt Count (150-450) th/mm3 MPV (7.0-11.0) fL Prelim Diff (Auto) Neut % (Auto) (16.0-70.0) % Lymph % (Auto) (9.0-44.0) % [place] % (Auto) (0.0-8.0) % Eos % (Auto) (0.0-4.0) % Baso % (Auto) (0.0-2.0) % Neut # (Auto) (1.8-7.7) th/mm3 Lymph # (Auto) (1.0-4.8) th/mm3 [place] # (Auto) (0.0-0.9) th/mm3 Eos # (Auto) (0.0-0.4) th/mm3 Baso # (Auto) (0.0-0.2) th/mm3 WBC Differential Diff Scan Seg Neuts % (Manual) (16-70) % Band Neuts % (Manual) (0-6) % Lymphocytes % (Manual) (9-44) % Monocytes % (Manual) (0-8) % Abs Neuts (Manual) (1.8-7.7) th/mm3 Differential Comment Platelet Estimate (Normal) Platelet Morphology (Normal) Acanthocytes (Spur) (None) Keratocytes (None) ESR (0-20) mm/hr PT (9.8-11.6) sec INR Ratio APTT (23.4-31.7) sec Fibrinogen (227-377) mg/dL Sodium (136-145) meq/L Potassium (3.5-5.1) meq/L Chloride (98-107) meq/L Carbon Dioxide (21.0-32.0) meq/L Anion Gap (5-15) meq/L BUN (7-18) mg/dL Creatinine (0.60-1.30) mg/dL Estimated GFR (>89) mL/min Random Glucose (74-106) mg/dL Lactic Acid (0.4-2.0) mmol/L Calcium (8.5-10.1) mg/dL Calcium Adj for Albumin (8.5-10.1) mg/dL Total Bilirubin (0.2-1.0) mg/dL AST (15-37) U/L ALT (12-78) U/L Alkaline Phosphatase (45-117) U/L Troponin I (0.02-0.05) ng/mL C-Reactive Protein 7.08 H (0.00-0.30) mg/dL Total Protein (6.4-8.2) g/dL Albumin (3.4-5.0) g/dL Triglycerides 231 H (42-150) mg/dL Cholesterol 189 (120-200) mg/dL LDL Cholesterol, Calc 85 (0-99) mg/dL HDL Cholesterol 58.0 (40.0-60.0) mg/dL Cholesterol/HDL Ratio 3.25 Ratio Urine Color Red (Yellw/Straw) Urine Clarity Cloudy H (Clear) Urine pH 6.0 (5.0-8.5) Ur Specific [place] 1.029 (1.002-1.035) Urine Protein 100 H (Neg-Trace) mg/dL Urine Glucose (UA) 50 (Negative) mg/dL Urine Ketones Negative (Negative) mg/dL Urine Occult Blood Large H (Negative) Urine Nitrate Negative (Negative) Urine Bilirubin Negative (Negative) Urine Urobilinogen Less than 2 (Less than 2) mg/dL Ur Leukocyte Esterase Negative (Negative) Urine RBC (0-3) /hpf Urine WBC (0-5) /hpf Urine WBC Clumps Many H (None) Ur Squamous Epith Cells 203 (0-5) /hpf Urine Bacteria Few H (None) /hpf Micro UA Comment Cath-culture ind Ur Microscopic Review Not Reportable Urine Culture Comments Cath-cult indicated 01/06/19 01/06/19 01/06/19 Range/Units 20:35 20:35 20:35 WBC 11.2 H (4.0-11.0) th/mm3 RBC 3.09 L (4.50-5.90) mil/mm3 Hgb 9.5 L (13.0-17.0) gm/dL Hct 28.9 L (39.0-51.0) % MCV 93.7 (80.0-100.0) fL MCH 30.8 (27.0-34.0) pg MCHC 32.9 (32.0-36.0) % RDW 15.0 (11.6-17.2) % Plt Count 368 (150-450) th/mm3 MPV 7.3 (7.0-11.0) fL Prelim Diff (Auto) Slide review pending Neut % (Auto) 89.2 H (16.0-70.0) % Lymph % (Auto) 3.5 L (9.0-44.0) % [place] % (Auto) 5.3 (0.0-8.0) % Eos % (Auto) 1.5 (0.0-4.0) % Baso % (Auto) 0.5 (0.0-2.0) % Neut # (Auto) 10.0 H (1.8-7.7) th/mm3 Lymph # (Auto) 0.4 L (1.0-4.8) th/mm3 [place] # (Auto) 0.6 (0.0-0.9) th/mm3 Eos # (Auto) 0.2 (0.0-0.4) th/mm3 Baso # (Auto) 0.1 (0.0-0.2) th/mm3 WBC Differential . Diff Scan Auto diff confirmed Seg Neuts % (Manual) (16-70) % Band Neuts % (Manual) (0-6) % Lymphocytes % (Manual) (9-44) % Monocytes % (Manual) (0-8) % Abs Neuts (Manual) (1.8-7.7) th/mm3 Differential Comment . Platelet Estimate Normal (Normal) Platelet Morphology Normal (Normal) Acanthocytes (Spur) Occ H (None) Keratocytes Occ H (None) ESR (0-20) mm/hr PT 11.5 (9.8-11.6) sec INR 1.1 Ratio APTT 30.2 Cancelled (23.4-31.7) sec Fibrinogen 472 H (227-377) mg/dL Sodium (136-145) meq/L Potassium (3.5-5.1) meq/L Chloride (98-107) meq/L Carbon Dioxide (21.0-32.0) meq/L Anion Gap (5-15) meq/L BUN (7-18) mg/dL Creatinine (0.60-1.30) mg/dL Estimated GFR (>89) mL/min Random Glucose (74-106) mg/dL Lactic Acid (0.4-2.0) mmol/L Calcium (8.5-10.1) mg/dL Calcium Adj for Albumin (8.5-10.1) mg/dL Total Bilirubin (0.2-1.0) mg/dL AST (15-37) U/L ALT (12-78) U/L Alkaline Phosphatase (45-117) U/L Troponin I (0.02-0.05) ng/mL C-Reactive Protein (0.00-0.30) mg/dL Total Protein (6.4-8.2) g/dL Albumin (3.4-5.0) g/dL Triglycerides (42-150) mg/dL Cholesterol (120-200) mg/dL LDL Cholesterol, Calc (0-99) mg/dL HDL Cholesterol (40.0-60.0) mg/dL Cholesterol/HDL Ratio Ratio Urine Color (Yellw/Straw) Urine Clarity (Clear) Urine pH (5.0-8.5) Ur Specific [place] (1.002-1.035) Urine Protein (Neg-Trace) mg/dL Urine Glucose (UA) (Negative) mg/dL Urine Ketones (Negative) mg/dL Urine Occult Blood (Negative) Urine Nitrate (Negative) Urine Bilirubin (Negative) Urine Urobilinogen (Less than 2) mg/dL Ur Leukocyte Esterase (Negative) Urine RBC (0-3) /hpf Urine WBC (0-5) /hpf Urine WBC Clumps (None) Ur Squamous Epith Cells (0-5) /hpf Urine Bacteria (None) /hpf Micro UA Comment Ur Microscopic Review Urine Culture Comments 01/06/19 01/07/19 01/07/19 Range/Units 23:26 05:33 05:33 WBC (4.0-11.0) th/mm3 RBC (4.50-5.90) mil/mm3 Hgb (13.0-17.0) gm/dL Hct (39.0-51.0) % MCV (80.0-100.0) fL MCH (27.0-34.0) pg MCHC (32.0-36.0) % RDW (11.6-17.2) % Plt Count (150-450) th/mm3 MPV (7.0-11.0) fL Prelim Diff (Auto) Neut % (Auto) (16.0-70.0) % Lymph % (Auto) (9.0-44.0) % [place] % (Auto) (0.0-8.0) % Eos % (Auto) (0.0-4.0) % Baso % (Auto) (0.0-2.0) % Neut # (Auto) (1.8-7.7) th/mm3 Lymph # (Auto) (1.0-4.8) th/mm3 [place] # (Auto) (0.0-0.9) th/mm3 Eos # (Auto) (0.0-0.4) th/mm3 Baso # (Auto) (0.0-0.2) th/mm3 WBC Differential Diff Scan Seg Neuts % (Manual) (16-70) % Band Neuts % (Manual) (0-6) % Lymphocytes % (Manual) (9-44) % Monocytes % (Manual) (0-8) % Abs Neuts (Manual) (1.8-7.7) th/mm3 Differential Comment Platelet Estimate (Normal) Platelet Morphology (Normal) Acanthocytes (Spur) (None) Keratocytes (None) ESR (0-20) mm/hr PT 12.7 H (9.8-11.6) sec INR 1.3 Ratio APTT (23.4-31.7) sec Fibrinogen (227-377) mg/dL Sodium 138 (136-145) meq/L Potassium 4.8 (3.5-5.1) meq/L Chloride 108 H (98-107) meq/L Carbon Dioxide 18.9 L (21.0-32.0) meq/L Anion Gap 11 (5-15) meq/L BUN 21 H (7-18) mg/dL Creatinine 2.33 H (0.60-1.30) mg/dL Estimated GFR 27 L (>89) mL/min Random Glucose 113 H (74-106) mg/dL Lactic Acid 1.9 (0.4-2.0) mmol/L Calcium 7.7 L D (8.5-10.1) mg/dL Calcium Adj for Albumin (8.5-10.1) mg/dL Total Bilirubin 1.2 H (0.2-1.0) mg/dL AST 144 H (15-37) U/L ALT 60 (12-78) U/L Alkaline Phosphatase 135 H (45-117) U/L Troponin I (0.02-0.05) ng/mL C-Reactive Protein (0.00-0.30) mg/dL Total Protein 6.0 L D (6.4-8.2) g/dL Albumin 2.3 L D (3.4-5.0) g/dL Triglycerides (42-150) mg/dL Cholesterol (120-200) mg/dL LDL Cholesterol, Calc (0-99) mg/dL HDL Cholesterol (40.0-60.0) mg/dL Cholesterol/HDL Ratio Ratio Urine Color (Yellw/Straw) Urine Clarity (Clear) Urine pH (5.0-8.5) Ur Specific [place] (1.002-1.035) Urine Protein (Neg-Trace) mg/dL Urine Glucose (UA) (Negative) mg/dL Urine Ketones (Negative) mg/dL Urine Occult Blood (Negative) Urine Nitrate (Negative) Urine Bilirubin (Negative) Urine Urobilinogen (Less than 2) mg/dL Ur Leukocyte Esterase (Negative) Urine RBC (0-3) /hpf Urine WBC (0-5) /hpf Urine WBC Clumps (None) Ur Squamous Epith Cells (0-5) /hpf Urine Bacteria (None) /hpf Micro UA Comment Ur Microscopic Review Urine Culture Comments 01/07/19 01/07/19 01/07/19 Range/Units 05:33 09:51 16:06 WBC 11.4 H (4.0-11.0) th/mm3 RBC 2.90 L (4.50-5.90) mil/mm3 Hgb 9.1 L (13.0-17.0) gm/dL Hct 27.5 L (39.0-51.0) % MCV 94.7 (80.0-100.0) fL MCH 31.5 (27.0-34.0) pg MCHC 33.2 (32.0-36.0) % RDW 15.0 (11.6-17.2) % Plt Count 292 (150-450) th/mm3 MPV 7.2 (7.0-11.0) fL Prelim Diff (Auto) Slide review pending Neut % (Auto) 92.6 H (16.0-70.0) % Lymph % (Auto) 1.4 L (9.0-44.0) % [place] % (Auto) 3.7 (0.0-8.0) % Eos % (Auto) 1.4 (0.0-4.0) % Baso % (Auto) 0.9 (0.0-2.0) % Neut # (Auto) 10.6 H (1.8-7.7) th/mm3 Lymph # (Auto) 0.2 L (1.0-4.8) th/mm3 [place] # (Auto) 0.4 (0.0-0.9) th/mm3 Eos # (Auto) 0.2 (0.0-0.4) th/mm3 Baso # (Auto) 0.1 (0.0-0.2) th/mm3 WBC Differential Manual diff final Diff Scan Seg Neuts % (Manual) 81 H (16-70) % Band Neuts % (Manual) 15 H (0-6) % Lymphocytes % (Manual) 2 L (9-44) % Monocytes % (Manual) 2 (0-8) % Abs Neuts (Manual) 10.9 H (1.8-7.7) th/mm3 Differential Comment . Platelet Estimate Normal (Normal) Platelet Morphology Normal (Normal) Acanthocytes (Spur) (None) Keratocytes (None) ESR (0-20) mm/hr PT (9.8-11.6) sec INR Ratio APTT (23.4-31.7) sec Fibrinogen (227-377) mg/dL Sodium 141 (136-145) meq/L Potassium 4.9 (3.5-5.1) meq/L Chloride 115 H (98-107) meq/L Carbon Dioxide 14.3 L (21.0-32.0) meq/L Anion Gap 12 (5-15) meq/L BUN 24 H (7-18) mg/dL Creatinine 2.00 H (0.60-1.30) mg/dL Estimated GFR 32 L (>89) mL/min Random Glucose 103 (74-106) mg/dL Lactic Acid (0.4-2.0) mmol/L Calcium 6.7 L* D (8.5-10.1) mg/dL Calcium Adj for Albumin 8.4 L (8.5-10.1) mg/dL Total Bilirubin (0.2-1.0) mg/dL AST (15-37) U/L ALT (12-78) U/L Alkaline Phosphatase (45-117) U/L Troponin I 0.04 (0.02-0.05) ng/mL C-Reactive Protein (0.00-0.30) mg/dL Total Protein (6.4-8.2) g/dL Albumin 1.9 L (3.4-5.0) g/dL Triglycerides (42-150) mg/dL Cholesterol (120-200) mg/dL LDL Cholesterol, Calc (0-99) mg/dL HDL Cholesterol (40.0-60.0) mg/dL Cholesterol/HDL Ratio Ratio Urine Color (Yellw/Straw) Urine Clarity (Clear) Urine pH (5.0-8.5) Ur Specific [place] (1.002-1.035) Urine Protein (Neg-Trace) mg/dL Urine Glucose (UA) (Negative) mg/dL Urine Ketones (Negative) mg/dL Urine Occult Blood (Negative) Urine Nitrate (Negative) Urine Bilirubin (Negative) Urine Urobilinogen (Less than 2) mg/dL Ur Leukocyte Esterase (Negative) Urine RBC (0-3) /hpf Urine WBC (0-5) /hpf Urine WBC Clumps (None) Ur Squamous Epith Cells (0-5) /hpf Urine Bacteria (None) /hpf Micro UA Comment Ur Microscopic Review Urine Culture Comments Imaging Data Radiologist's impression: Abdomen/Pelvis CT 01/06/19 00:00 CONCLUSION: 1. Mild right-sided hydroureteronephrosis extending to the UV junction without radiopaque renal calculi. 2. Bladder is completely decompressed secondary to Galvez catheter with a 1 cm calcified density adjacent to the Galvez balloon in the bladder which may reflect a bladder calculus. 3. Air within the bladder likely due to catheterization. 4. Persistent diffuse sclerosis and expansion of the right ilium, acetabulum, coccyx and pubic rami with new focal sclerosis involving the posterior right L5 vertebral body and left ilium consistent with progressive metastatic disease in this patient with history of prostate CA. 5. Additional stable ancillary findings, as above. Liver Ultrasound 01/07/19 00:00 CONCLUSION: 1. Minimal increase in echogenicity of the liver without mass or hydronephrosis. 2. There is no ductal dilatation Discharge Plan Discharge Disposition Patient Disposition: ED Admit(ED Internal Use Only) Discharge Condition Condition: Stable Discharge Order Discharge Orders: ED Use Only Admit Order (Routine); Ordered 01/06/19 Ordered By: Becki Hastings Discharge Details Diagnosis: Acute hemorrhagic cystitis, Acute UTI Physicians Team ED Provider: David Corea ED Midlevel Provider: Becki Hastings Primary Care Provider: [facility]Physician 's Attending Provider: Ingrid Workman Other Providers: Anmol Barnes ; Yessenia King Status ED Status: Left Department Discharge Information Discharge Date/Time: 01/06/19 17:35
[2019-01-06 13:16] LABS: Alanine Aminotransferase 15 U/L (12-78); Albumin 3.1 g/dL (3.4-5.0); Anion Gap 12 meq/L (5-15); Aspartate Aminotransferase 18 U/L (15-37); Blood Urea Nitrogen 20 mg/dL (7-18); Calcium 8.9 mg/dL (8.5-10.1); Chloride 104 meq/L (98-107); Glomerular Filtration Rate 33 mL/min (>89); Glucose,Random 157 mg/dL (74-106); Potassium 4.8 meq/L (3.5-5.1); Sodium 137 meq/L (136-145)
[2019-01-06 13:19] LABS: Alkaline Phosphatase 86 U/L (45-117); Total Protein 7.4 g/dL (6.4-8.2)
[2019-01-06 13:40] LABS: Bacteria,Urine Few /hpf; Bilirubin,Urine Negative (Negative); Clarity,Urine Cloudy (Clear); Color,Urine Red (Yellw/Straw); Glucose,Urine (UA) 50 mg/dL (Negative); Leukocyte Esterase,Urine Negative (Negative); Nitrite,Urine Negative (Negative); Specific Gravity,Urine 1.029 (1.002-1.035); Squamous Epithelial Cell,Urine 203 /hpf (0-5)
[2019-01-06] MEDS ORDERED: Sod Chloride 0.9% Inj 1,000 ML IV.SIG SCH (14:00)
--- NOTE | 2019-01-06 14:38 | P.HPFP ---
History of Present Illness Primary Care Physician: [facility] History of Present Illness: This is an 83 yo M with a history of prostate cancer, 25 years status post radical proctectomy, orchiectomy with failed penile prosthesis who presents after a 1 day history of lower abdominal pain and a 3 week history of hematuria. Patient patient reports that he had recurrence of his prostate cancer 3 years ago and is currently undergoing treatment with oral chemotherapy. Patient now has metastasis on right hip. Patient reports that his condition originally began in September. It started with a weak urinary flow and says that it felt like his urine was blocked and was only able to urinate a few drops to dribbles. Patient also reports seeing blood in the toilet. Due to patients inability to urinate he came to the emergency room a couple of days before Leandra at the [facility] in [facility] where he spent 8 days. He said they changed his Galvez catheter and gave him pain medication, patient cannot remember what else they did. After the [facility] he went to rehab for 3 weeks at the [facility]. Patient reports that when being released from rehab he was still experiencing urinary retention and was given urinary catheter. At 2 am today patient began to experience pain over his bladder that he described as stabbing, non-radiating, and intermittent. He reports feeling the pain would come and go about every 20 minutes and would last 20 minutes. There were no alleviating or exacerbating factors. Denies chest pain, shortness of breath, nausea, vomiting, fevers, or chills. PMHx: HTN, Hyperlipidemia, Prostate cancer now in remission Meds: Medication Surgical Hx: Cholecystectomy in 2014, Tonsillectomy 2014, bilateral Orchiectomy 2014 Fam Hx: Father had prostatectomy due to blockage Allergies: Penicillin causes itching Social: Lives with of 25 years, retired from computer programing. Never smoker, drinker, and denies drug use. Code: DNR, Parul Rutherford is proxy. [facility] Dr. Mitchell Oncologist Dr. Norman No [employer] Designer No Urologist - Diagnosis (1) Sepsis (2) Acute hemorrhagic cystitis (3) Prostate cancer metastatic to bone (4) Hypertension (5) Hyperlipidemia (6) Nutrition, metabolism, and development symptoms Review of Systems Constitutional: Denies chills, Denies fever(s), Denies headache(s), Denies dizziness, Eyes: Denies change in vision, Denies double vision, Denies blurry vision Cardiovascular: Denies chest pain, Denies fast heart rate, Denies rapid, pounding, or irregular heartbeat Respiratory: Denies shortness of breath or wheezing Gastrointestinal: Endorses suprapubic pain as stated in HPI, Denies constipation , Denies loose stools, Denies nausea, Denies vomiting Genitourinary: Endorses difficulty initiating urinary stream, endorses blood in urine, denies dysuria PMFSH - History History Provided By: Patient - Medical History Medical History: Medical History (Last Reviewed 01/06/19 @ 13:05 by FARHANA Gutierrez) Anemia CHF (congestive heart failure) Hypertension Muscle weakness 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 Thrombocytopenia - Surgical History Surgical History: Surgical History (Last Reviewed 01/06/19 @ 13:05 by FARHANA Gutierrez) H/O removal of testicle History of cholecystectomy Hx of appendectomy Hx of radical prostatectomy - Tobacco History Second Hand Smoke Exposure: No Tobacco Use In Past 30 Days: No Smoking Status: Never smoker - Alcohol History How Often Do You Have a Drink Containing Alcohol: 2 to 4 times a month - Substance Use History Substance History: No History of Abuse - Travel History Recent Travel Out of the Country Within the Last 8 Weeks: No - Immunization History Tetanus Immunization: <5 Years Medications and Allergies Active Medications: Active Medications Sodium Chloride (Ns Inj) 1,000 mls @ 1,000 mls/hr IV.SIG BOLUS GEORGE Stop: 01/06/19 14:59 Last Admin: 01/06/19 14:22 Dose: 1,000 mls/hr Levofloxacin/Dextrose (Levaquin 750 Mg Premix Inj) 150 mls @ 100 mls/hr IV.SIG ONCE ONE Stop: 01/06/19 15:21 Last Admin: 01/06/19 14:21 Dose: 100 mls/hr Sodium Chloride (Ns Flush) 2 ml IV.FLUSH PRN PRN PRN Reason: FLUSH AFTER USING IV ACCESS Last Admin: 01/06/19 12:33 Dose: 2 ml Allergies Allergy/AdvReac Type Severity Reaction Status Date / Time Penicillins Allergy Itching Verified 01/06/19 02:12 Home Medications Medication Instructions Recorded Confirmed Type Unable to Obtain Home Meds 01/06/19 01/06/19 History Exam Vital signs: Vital Signs 01/06/19 11:23 01/06/19 12:37 01/06/19 13:00 Temperature 97.7 F Pulse Rate 117 H 104 H 114 H Respiratory Rate 18 20 20 Blood Pressure 142/68 H 130/76 118/63 Pulse Oximetry 100 99 99 01/06/19 14:00 01/06/19 14:15 01/06/19 14:24 Temperature Pulse Rate 111 H 112 H 113 H Respiratory Rate 20 18 Blood Pressure 125/66 172/85 H 131/63 Pulse Oximetry 98 95 Intake & Output 01/05/19 01/06/19 01/06/19 18:59 06:59 18:59 Weight 65.771 kg Narrative: GENERAL: Elderly appearing male in acute distress due to pain. Patient has difficulty recalling details of his care due to the pain. SKIN: Warm and dry. No rash. Pale appearing EYES: No scleral icterus. No injection or drainage. PERRLA. EOMI. HENT: Normocephalic. Atraumatic. MMM. OP Benign. NECK: Supple, trachea midline. No JVD or lymphadenopathy. CARDIOVASCULAR: Regular rate and rhythm without obvious murmurs, gallops, or rubs. RESPIRATORY: Breath sounds equal bilaterally. No accessory muscle use. CTAB. GASTROINTESTINAL: Abdomen soft, suprapubic pain upon deep palpation, nondistended. BS WNL. GENITOURINARY: External male genitalia without obvious deformity. No obvious signs of infection or overlying erythema. Triple-lumen Galvez catheter in place draining sanguinous urine. MUSCULOSKELETAL: No cyanosis or edema. Strength grossly WNL. BACK: No CVA tenderness. NEURO/PSYCH: Afocal. Awake, alert, and oriented x3. Results - Labs Result diagrams: 01/06/19 20:35 01/06/19 12:30 Abnormal lab results 01/06/19 01/06/19 01/06/19 Range/Units 12:30 12:30 12:40 WBC 12.0 H (4.0-11.0) th/mm3 RBC 3.44 L (4.50-5.90) mil/mm3 Hgb 10.7 L (13.0-17.0) gm/dL Hct 32.0 L (39.0-51.0) % Neut % (Auto) 70.1 H (16.0-70.0) % Lucas % (Auto) 12.3 H (0.0-8.0) % Neut # (Auto) 8.4 H (1.8-7.7) th/mm3 Lucas # (Auto) 1.5 H (0.0-0.9) th/mm3 BUN 20 H (7-18) mg/dL Creatinine 1.92 H (0.60-1.30) mg/dL Estimated GFR 33 L (>89) mL/min Random Glucose 157 H (74-106) mg/dL Albumin 3.1 L (3.4-5.0) g/dL Urine Clarity Cloudy H (Clear) Urine Protein 100 H (Neg-Trace) mg/dL Urine Occult Blood Large H (Negative) Urine WBC Clumps Many H (None) Urine Bacteria Few H (None) /hpf Short CBC 01/06/19 Range/Units 12:30 WBC 12.0 H (4.0-11.0) th/mm3 Hgb 10.7 L (13.0-17.0) gm/dL Hct 32.0 L (39.0-51.0) % Plt Count 441 (150-450) th/mm3 BMP 01/06/19 12:30 Sodium 137 Potassium 4.8 Chloride 104 Carbon Dioxide 21.0 BUN 20 H Creatinine 1.92 H Calcium 8.9 Liver Function 01/06/19 Range/Units 12:30 Total Bilirubin 0.6 (0.2-1.0) mg/dL AST 18 (15-37) U/L ALT 15 (12-78) U/L Alkaline Phosphatase 86 (45-117) U/L Albumin 3.1 L (3.4-5.0) g/dL Urine 01/06/19 Range/Units 12:40 Urine Color Red (Yellw/Straw) Urine Clarity Cloudy H (Clear) Urine pH 6.0 (5.0-8.5) Ur Specific [place]y 1.029 (1.002-1.035) Urine Protein 100 H (Neg-Trace) mg/dL Urine Glucose (UA) 50 (Negative) mg/dL Caprini VTE Risk Assessment Caprini VTE Risk Assessment: Moderate/High Risk (score >= 2) VTE Pharmacological Exception Reason: Hemorrhage Caprini Risk Assessment Model: Point Value = 1 Point Value = 2 Point Value = 3 Point Value = 5 Age 41-60 Minor surgery BMI > 25 kg/m2 Swollen legs Varicose veins or History of unexplained or recurrent spontaneous Oral contraceptives or hormone replacement Sepsis (< 1 month) Serious lung disease, including pneumonia (< 1 month) Abnormal pulmonary function Acute myocardial infarction Congestive heart failure (< 1 month) History of inflammatory bowel disease Medical patient at bed rest Age 61-74 Arthroscopic surgery Major open surgery (> 45 min) Laparoscopic surgery (> 45 min) Malignancy Confined to bed (> 72 hours) Immobilizing plaster cast Central venous access Age >= 75 History of VTE Family history of VTE Factor V Leiden Prothrombin [id number] Lupus anticoagulant Anticardiolipin antibodies Elevated serum homocysteine Heparin-induced thrombocytopenia Other congenital or acquired thrombophilia Stroke (< 1 month) Elective arthroplasty Hip, pelvis, or leg fracture Acute spinal cord injury (< 1 month) Prophylaxis Regimen: Total Risk Factor Score Risk Level Prophylaxis Regimen 0-1 Low Early ambulation 2 Moderate Order ONE of the following: *Sequential Compression Device (SCD) *Heparin 5000 units SQ BID 3-4 Higher Order ONE of the following medications: *Heparin 5000 units SQ TID *Enoxaparin/Lovenox 40 mg SQ daily (WT < 150 kg, CrCl > 30 mL/min) *Enoxaparin/Lovenox 30 mg SQ daily (WT < 150 kg, CrCl > 10-29 mL/min) *Enoxaparin/Lovenox 30 mg SQ BID (WT < 150 kg, CrCl > 30 mL/min) AND/OR *Sequential Compression Device (SCD) 5 or more Highest Order ONE of the following medications: *Heparin 5000 units SQ TID (Preferred with Epidurals) *Enoxaparin/Lovenox 40 mg SQ daily (WT < 150 kg, CrCl > 30 mL/min) *Enoxaparin/Lovenox 30 mg SQ daily (WT < 150 kg, CrCl > 10-29 mL/min) *Enoxaparin/Lovenox 30 mg SQ BID (WT < 150 kg, CrCl > 30 mL/min) AND *Sequential Compression Device (SCD) Assessment and Plan - Assessment (1) Sepsis Code(s): A41.9 - Sepsis, unspecified organism Status: Acute Plan: This is an 83 yo M with a history of prostate cancer, 25 years status post radical proctectomy, orchiectomy with failed penile prosthesis who presents after a 1 day history of lower abdominal pain and a 3 week history of hematuria. On admission patient met sepsis criteria to include tachycardia, white blood cell count of 12, with suspected source of infection being an acute cystitis. -Patient received 1 L bolus of normal saline in ED -Received 1 dose of levofloxacin 750 mg -Received 1 dose of Pyridium -H/H on admission 10.7/32 -WBC count of 12 -UA positive only for large occult blood -Urine culture pending -Blood cultures ordered Plan: -Bolus 1 L of normal saline now -Continue hydration with normal saline at 100 mL an hour -Continue levofloxacin 750 mg daily -Begin oxybutynin 5 mg p.o. 3 times daily -Zofran 4 mg every 6 for nausea -Alum bladder irrigation ordered but currently not available, will wait for urology recommendations -Percocet 5 pain scale 3-5 -Morphine 2 mg every 3 for pain scale 6 through 10 and breakthrough -Strict I's and O's -Trend H/H every 12 hours -Transfuse if hemoglobin falls below 7 -Follow-up with urology consult (2) Acute hemorrhagic cystitis Code(s): N30.01 - Acute cystitis with hematuria Status: Acute Plan: Please see plan above for sepsis (3) Prostate cancer metastatic to bone Code(s): C61 - Malignant neoplasm of prostate; C79.51 - Secondary malignant neoplasm of bone Status: Acute Plan: Patient has history of prostate cancer status post prostatectomy 25 years ago with recurrence 3 years ago. Patient reports being on oral chemotherapy but cannot recall which. His medical records have been requested will follow up with results. -Follow-up with urology recommendations -Please see pain control under sepsis (4) Hypertension Code(s): I10 - Essential (primary) hypertension Status: Acute Plan: Patient reports history of hypertension, reports being on metoprolol but does not know dose. [facility] -Normotensive on admission -Begin metoprolol 25 mg twice daily if records not retrieved (5) Hyperlipidemia Code(s): E78.5 - Hyperlipidemia, unspecified Status: Acute Plan: Patient reports being on a statin but cannot remember which statin. [facility]. -Lipid panel ordered -If records are not retrieved start atorvastatin 40 mg daily (6) Nutrition, metabolism, and development symptoms Code(s): R63.8 - Other symptoms and signs concerning food and fluid intake Status: Acute Plan: Fluids: Normal saline at 100 mL an hour Electrolytes: Replete as needed Nutrition: Renal diet DVT prophylaxis: Not indicated due to active bleeding, SCDs bilaterally
[2019-01-06] MEDS ORDERED: Bisacodyl 10 MG Supp RECTAL PRN (15:08)
[2019-01-06] MEDS ORDERED: Acetaminophen 325 MG Tablet PO PRN ×2 (15:08)
[2019-01-06] MEDS ORDERED: Morphine Inj 4 MG/ML Vial IV.PUSH PRN (15:08)
[2019-01-06] MEDS ORDERED: Naloxone Inj 0.4 MG/ML Vial IV.PUSH PRN (15:08)
[2019-01-06] MEDS ORDERED: Sod Chloride 0.9% Inj 1,000 ML IV.SIG ONE (15:14)
[2019-01-06] MEDS ORDERED: [UNRECOGNIZED DRUG - OTHER] IRRIGATION SCH ×2 (15:30)
[2019-01-06] MEDS ORDERED: SODIUM CHLORIDE 0.9% IRRIGATION SCH ×2 (15:30)
[2019-01-06] MEDS: Sod Chloride 0.9% Inj 1,000 ML IV.CONT SCH (16:29)
[2019-01-06] MEDS: Morphine Inj 4 MG/ML Vial IV.PUSH PRN (16:35)
--- NOTE | 2019-01-06 20:09 | CT ---
EXAM DATE: 01/06/2019 8:00 PM EST AGE/SEX: 83 years / Male INDICATIONS: Hematuria. Lower abdominal pain. CLINICAL DATA: This is the patient's initial encounter. Patient reports that signs and symptoms have been present for 1 day and indicates a pain score of 8/10. MEDICAL/SURGICAL HISTORY: Congestive heart failure. Hypertension. Carcinoma, prostatic. Muriel cystectomy. Appendectomy. RADIATION DOSE: 15.25 CTDI (mGy) COMPARISON: [facility] – [place], [place] ABDOMEN & PELVIS W/O CONTRAST, 02/20/2017. . TECHNIQUE: Multiple contiguous axial images were obtained through the abdomen. Images were obtained using multiple row detector helical technique. Using automated exposure control and adjustment of the mA and/or kV according to patient size, radiation dose was kept as low as reasonably achievable to o btain optimal diagnostic quality images. DICOM format image data is available electronically for rev iew and comparison. FINDINGS: LOWER LUNGS: Minimal bibasilar linear parenchymal opacities. Partially imaged left hilar calcified l ymph node. LIVER: Diffusely homogeneous density without intrahepatic ductal dilatation or volume loss. SPLEEN: Scattered splenic calcifications. PANCREAS: Grossly unremarkable. KIDNEYS: There is mild right-sided hydroureteronephrosis extending to the UVJ. No definite radiopaqu e renal calculi. Kidneys otherwise symmetrical in size. No significant contour deforming abnormality. ADRENAL GLANDS: Unremarkable. AORTA: Lucie-aneurysmal. BOWEL/MESENTERY: The bowel loops are grossly unremarkable. Minimal sigmoid diverticulosis. The cecum and sigmoid colon have a normal configuration. No significant free fluid or drainable fluid collecti ons. No free air. ABDOMINAL WALL: Intact. BLADDER: Bladder is decompressed secondary to Galvez catheter. There is a 1 cm calcified density pretty cent the Galvez bladder balloon which may reflect a bladder calculus. Multiple foci of air in the deco mpressed bladder may be due to catheterization. REPRODUCTIVE: Postsurgical features of prostatectomy. BONY STRUCTURES: Stable sclerosis and expansion of the right ilium extending to the acetabulum and p ubic rami as well as the tip of the coccyx. New focal sclerosis involving the posterior right L5 vert ebral body as well as the left ilium. CONCLUSION: 1. Mild right-sided hydroureteronephrosis extending to the UV junction without radiopaque renal calc ga. 2. Bladder is completely decompressed secondary to Galvez catheter with a 1 cm calcified density pretty cent to the Galvez balloon in the bladder which may reflect a bladder calculus. 3. Air within the bladder likely due to catheterization. 4. Persistent diffuse sclerosis and expansion of the right ilium, acetabulum, coccyx and pubic rami with new focal sclerosis involving the posterior right L5 vertebral body and left ilium consistent wi th progressive metastatic disease in this patient with history of prostate CA. 5. Additional stable ancillary findings, as above. Electronically signed by: Reynaldo Warren MD Board Certified Radiologist 01/06/2019 8:08 PM EST
[2019-01-06] MEDS: Senna/Docusate Sodium 8.6/50 MG Tablet PO SCH (20:43)
[2019-01-06 20:53] LABS: Baso # (Auto) 0.1 th/mm3 (0.0-0.2); Baso % (Auto) 0.5 % (0.0-2.0); Eos # (Auto) 0.2 th/mm3 (0.0-0.4); Eos % (Auto) 1.5 % (0.0-4.0); Hematocrit 28.9 % (39.0-51.0); Hemoglobin 9.5 gm/dL (13.0-17.0); Lymph # (Auto) 0.4 th/mm3 (1.0-4.8); Lymph % (Auto) 3.5 % (9.0-44.0); Mean Corpuscular HGB Conc 32.9 % (32.0-36.0); Mean Corpuscular Hemoglobin 30.8 pg (27.0-34.0); Mean Corpuscular Volume 93.7 fL (80.0-100.0); Mean Platelet Volume 7.3 fL (7.0-11.0); Mono # (Auto) 0.6 th/mm3 (0.0-0.9); Mono % (Auto) 5.3 % (0.0-8.0); Neut % (Auto) 89.2 % (16.0-70.0); Platelet Count 368 th/mm3 (150-450); Red Blood Count 3.09 mil/mm3 (4.50-5.90); White Blood Count 11.2 th/mm3 (4.0-11.0)
--- NOTE | 2019-01-06 20:55 | P.PNADD ---
Addendum to Inpatient Note Reason for Addendum: Additional Documentation Additional information: Attending note: Patient seen and examined this afternoon in the ER, discussed with resident team. I agree with assessment and management as documented and discussed with me. I certify that a two midnight stay is warranted. Fuentes Rutherford is an 83yo gentleman with h/o prostate cancer recently admitted at [facility] for painful hematuria and subsequent 3 week stay at rehab admitted for recurrence of symptoms nearly immediately after discharge from the rehab facility. He reports bladder spasms, which are intermittent, painful, and feel like he needs to urinate. He denies fever or chills. + nausea, + vomiting. On exam, his kevin catheter is draining very bloody urine. Problems: acute hemorrhagic cystitis: urology has been consulted. Triple lumen kevin has been placed, in case flushing of bladder is warranted. prostate cancer metastatic to bone: urology consulted. HTN: Continue home medications. Montior BP. chronic CHF: Stable, asymptomatic from this perspective. Will be cautious with IV fluid resuscitation, in light of his CHF. personal h/o thrombocytopenia: Stable. No evidence of thrombocytopenia at this time. Platelets 440 on admission. chronic kidney disease: creatinine slightly worse from yesterday, but within his baseline range. Continue to monitor Is/Os. Provide IV fluid as needed.
[2019-01-06 21:07] LABS: INR 1.1 Ratio; Prothrombin Time 11.5 sec (9.8-11.6)
[2019-01-06 21:11] LABS: Activated Partial Thrombo Time 30.2 sec (23.4-31.7)
[2019-01-06 21:41] LABS: Platelet Estimate Normal (Normal); Platelet Morphology Normal (Normal)
[2019-01-06 21:43] LABS: Acanthocytes Occ
[2019-01-06 23:55] LABS: Chol/HDL Ratio 3.25 Ratio
[2019-01-07] MEDS: Sod Chloride 0.9% Inj 1,000 ML IV.CONT SCH ×3 (00:44→21:15)
[2019-01-07] MEDS ORDERED: Acetaminophen Inj 650 MG/65 ML VIAL IV.SIG ONE (01:14)
[2019-01-07 05:54] LABS: INR 1.3 Ratio; Prothrombin Time 12.7 sec (9.8-11.6)
[2019-01-07 06:15] LABS: Alanine Aminotransferase 60 U/L (12-78); Albumin 2.3 g/dL (3.4-5.0); Alkaline Phosphatase 135 U/L (45-117); Anion Gap 11 meq/L (5-15); Aspartate Aminotransferase 144 U/L (15-37); Blood Urea Nitrogen 21 mg/dL (7-18); Calcium 7.7 mg/dL (8.5-10.1); Carbon Dioxide 18.9 meq/L (21.0-32.0); Chloride 108 meq/L (98-107); Glomerular Filtration Rate 27 mL/min (>89); Glucose,Random 113 mg/dL (74-106); Potassium 4.8 meq/L (3.5-5.1); Sodium 138 meq/L (136-145)
[2019-01-07] MEDS ORDERED: Sod Chloride 0.9% Inj 1,000 ML IV.SIG ONE (07:04)
[2019-01-07] MEDS ORDERED: Metoprolol Tartrate 25 MG Tablet PO SCH (09:00)
[2019-01-07] MEDS: Morphine Inj 4 MG/ML Vial IV.PUSH PRN ×5 (09:12→18:08)
[2019-01-07] MEDS: Lactobacillus Acidophilus/L. Spores Tablet PO SCH ×2 (09:19→22:20)
[2019-01-07] MEDS: Metoprolol Tartrate 25 MG Tablet PO SCH ×2 (09:19→22:20)
[2019-01-07] MEDS: Senna/Docusate Sodium 8.6/50 MG Tablet PO SCH ×2 (09:20→22:30)
[2019-01-07] MEDS: XTANDI 160 MG PO SCH (09:20)
--- NOTE | 2019-01-07 09:38 | P.CONURO ---
History of Present Illness Service: Consult date: 01/07/19 Requesting Physician: Manoj Garg Reason for Consult: Gross hematuria Primary Care Provider: [facility] History of Present Illness: 83-year-old gentleman with history metastatic prostate cancer who is status post a radical retropubic prostatectomy and is currently being managed medically by oncology over at the [facility] system. He is now admitted for suprapubic pain and gross hematuria. Patient has been having problems with voiding since September 2018 and has been managed with both an indwelling Galvez catheter along with intermittent catheterizations. A CT scan study was performed which demonstrated changes consistent with bony metastatic disease along with mild right hydro-ureteronephrosis likely secondary to progression from the prostate cancer. Also noted was a small calcification within the urinary bladder consistent with a bladder calculus. Galvez catheter was noted to be in good position and the bladder decompressed. Laboratory studies demonstrated mild elevation in the white blood cell count and urinalysis was consistent with a urinary tract infection. At the time of consultation the patient indwelling Galvez catheter was draining medium red urine without evidence of clots. 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 Thrombocytopenia - Surgical History Surgical History: Surgical History (Last Reviewed 01/07/19 @ 10:27 by Yessenia King MD) H/O removal of testicle History of cholecystectomy Hx of appendectomy Hx of radical prostatectomy - Tobacco History Second Hand Smoke Exposure: No Tobacco Use In Past 30 Days: No Smoking Status: Never smoker - Alcohol History How Often Do You Have a Drink Containing Alcohol: 2 to 4 times a month - Substance Use History Substance History: No History of Abuse - Travel History Recent Travel Out of the Country Within the Last 8 Weeks: No - Immunization History Tetanus Immunization: <5 Years Hx Influenza Vaccine This Season: Yes Medications and Allergies Active Medications: Active Medications Acetaminophen (Tylenol) 650 mg PO Q4H PRN PRN Reason: Temp > 100.4 Acetaminophen (Tylenol) 650 mg PO Q6HR PRN PRN Reason: PAIN SCALE 1 TO 2 Al Hydroxide/Mg Hydroxide (Milk Of Magnesia Liq) 30 ml PO Q12H PRN PRN Reason: Mild Constipation Bisacodyl (Dulcolax Supp) 10 mg RECTAL DAILY PRN PRN Reason: SEVERE CONSITIPATION Cyanocobalamin (Vitamin B12) 1,000 mcg PO DAILY [facility] Last Admin: 01/07/19 09:20 Dose: Not Given Sodium Chloride (Ns Inj) 1,000 mls @ 100 mls/hr IV.CONT .Q10H [facility] Last Infusion: 01/07/19 09:20 Dose: 0 mls/hr Levofloxacin/Dextrose (Levaquin 750 Mg Premix Inj) 150 mls @ 100 mls/hr IV.SIG Q24H [facility] Lactobacillus Acidophilus (Lactinex) 2 tab PO BID [facility] Last Admin: 01/07/19 09:19 Dose: Not Given Lactulose (Lactulose Liq) 30 ml PO DAILY PRN PRN Reason: SEVERE CONSITIPATION Metoprolol Tartrate (Lopressor) 12.5 mg PO BID [facility] Last Admin: 01/07/19 09:19 Dose: Not Given Morphine Sulfate (Morphine Inj) 2 mg IV.PUSH Q3H PRN PRN Reason: PAIN 6-10;IF UNABLE TO TAKE PO Last Admin: 01/07/19 09:12 Dose: 2 mg Morphine Sulfate (Morphine Inj) 4 mg IV.PUSH Q3H PRN PRN Reason: BREAKTHROUGH PAIN Naloxone HCl (Narcan Inj) 0.4 mg IV.PUSH UNSCH PRN PRN Reason: SEE LABEL COMMENTS Ondansetron HCl (Zofran Inj) 4 mg IV.PUSH Q6H PRN PRN Reason: NAUSEA OR VOMITING Last Admin: 01/07/19 00:41 Dose: 4 mg Oxybutynin Chloride (Ditropan) 5 mg PO TID [facility] Last Admin: 01/07/19 09:19 Dose: Not Given Oxycodone/Acetaminophen (Percocet 5/325 Mg) 1 tab PO Q6H PRN PRN Reason: PAIN SCALE 3 TO 5 Pantoprazole Sodium (Protonix) 40 mg PO DAILY [facility] Last Admin: 01/07/19 09:20 Dose: Not Given Pt Own Xtandi 160 Mg 0 each PO DAILY [facility] Last Admin: 01/07/19 09:20 Dose: Not Given Pravastatin Sodium (Pravachol) 40 mg PO HS [facility] Senna/Docusate Sodium (Nannette-Colace) 1 tab PO BID [facility] Last Admin: 01/07/19 09:20 Dose: Not Given Sennosides (Senokot) 17.2 mg PO Q12H PRN PRN Reason: Moderate Constipation Sodium Chloride (Ns Flush) 2 ml IV.FLUSH BID [facility] Last Admin: 01/07/19 09:20 Dose: Not Given Sodium Chloride (Ns Flush) 2 ml IV.FLUSH PRN PRN PRN Reason: FLUSH AFTER USING IV ACCESS Tamsulosin HCl (Flomax) 0.4 mg PO QPM [facility] Allergies Allergy/AdvReac Type Severity Reaction Status Date / Time Penicillins Allergy Itching Verified 01/06/19 02:12 Home Medications Medication Instructions Recorded Confirmed Type Lactobacillus rhamnosus GG 2 BID 01/06/19 History [Culturelle] acetaminophen 650 PO Q4HR PRN 01/06/19 History aspirin [Aspirin Low Dose] 81 PO DAILY 01/06/19 History bisacodyl [Dulcolax (bisacodyl)] 10 SD DAILY PRN 01/06/19 History cyanocobalamin (vitamin B-12) 1,000 mcg PO DAILY 01/06/19 01/07/19 History enzalutamide [Xtandi] 160 mg PO DAILY 01/06/19 01/07/19 History magnesium hydroxide [Milk of 30 ml PO PRN 01/06/19 History Magnesia] metoprolol tartrate 12.5 PO BID 01/06/19 History pantoprazole [Protonix] 40 mg PO DAILY 01/06/19 01/07/19 History pravastatin 40 PO QPM 01/06/19 History prednisone 2.5 mg PO QPM 01/06/19 01/07/19 History prednisone 5 mg PO DAILY 01/06/19 01/07/19 History sodium phosphates [Fleet Enema] 118 ml SD PRN PRN 01/06/19 01/07/19 History tamsulosin 0.4 mg PO QPM 01/06/19 01/07/19 History docusate sodium 100 mg PO QPM 01/07/19 01/07/19 History ondansetron HCl [Zofran] 4 mg PO Q6HR PRN 01/07/19 01/07/19 History Physical Exam Vital Signs - 24 hr 01/06/19 11:23 01/06/19 12:37 01/06/19 13:00 Temperature 97.7 F Pulse Rate 117 H 104 H 114 H Respiratory Rate 18 20 20 Blood Pressure 142/68 H 130/76 118/63 Pulse Oximetry 100 99 99 01/06/19 14:00 01/06/19 14:15 01/06/19 14:24 Temperature Pulse Rate 111 H 112 H 113 H Respiratory Rate 20 18 Blood Pressure 125/66 172/85 H 131/63 Pulse Oximetry 98 95 01/06/19 16:00 01/06/19 17:24 01/06/19 17:33 Temperature Pulse Rate 126 H 123 H Respiratory Rate 20 18 18 Blood Pressure 124/62 160/70 H Pulse Oximetry 99 01/06/19 17:45 01/06/19 20:00 01/07/19 00:00 Temperature 98.1 F 98.3 F 102.7 F H Pulse Rate 130 H 135 H 127 H Respiratory Rate 20 16 16 Blood Pressure 149/65 H 138/67 154/69 H Pulse Oximetry 91 L 93 L 96 01/07/19 02:18 01/07/19 04:00 01/07/19 08:00 Temperature 98.9 F 98.1 F 98.3 F Pulse Rate 119 H 118 H Respiratory Rate 20 18 Blood Pressure 127/58 L 119/58 L Pulse Oximetry 94 L 96 Physical Exam: GENERAL: This is a well-nourished, well-developed patient, in no apparent distress. SKIN: No rashes, ecchymoses or lesions. Cool and dry. HEAD: Atraumatic. Normocephalic. No temporal or scalp tenderness. EYES: Pupils equal round and reactive. Extraocular motions intact. No scleral icterus. No injection or drainage. ENT: Nose without bleeding, purulent drainage or septal hematoma. Throat without erythema, tonsillar hypertrophy or exudate. Uvula midline. Airway patent. NECK: Trachea midline. No JVD or lymphadenopathy. Supple, nontender, no meningeal signs. GASTROINTESTINAL: Abdomen soft, non-tender, nondistended. GENITOURINARY: Indwelling Galvez catheter draining medium red urine without evidence of clots. Bladder not distended. MUSCULOSKELETAL: Extremities without clubbing, cyanosis, or edema. No joint tenderness, effusion, or edema noted. No calf tenderness. Negative Homans sign bilaterally. NEUROLOGICAL: Awake and alert. Cranial nerves II through XII intact. Motor and sensory grossly within normal limits. Five out of 5 muscle strength in all muscle groups. Normal speech. Laboratory Results - last 24 hr 01/06/19 01/06/19 01/06/19 12:30 12:30 12:30 WBC 12.0 H RBC 3.44 L Hgb 10.7 L Hct 32.0 L MCV 92.9 MCH 31.1 MCHC 33.5 RDW 15.3 Plt Count 441 MPV 7.2 Prelim Diff (Auto) Neut % (Auto) 70.1 H Lymph % (Auto) 14.5 [place] % (Auto) 12.3 H Eos % (Auto) 2.4 Baso % (Auto) 0.7 Neut # (Auto) 8.4 H Lymph # (Auto) 1.7 [place] # (Auto) 1.5 H Eos # (Auto) 0.3 Baso # (Auto) 0.1 WBC Differential . Diff Scan Differential Comment Auto diff final Platelet Estimate Platelet Morphology Acanthocytes (Spur) Keratocytes ESR 95 H PT INR APTT Fibrinogen Sodium 137 Potassium 4.8 Chloride 104 Carbon Dioxide 21.0 Anion Gap 12 BUN 20 H Creatinine 1.92 H Estimated GFR 33 L Random Glucose 157 H Lactic Acid Calcium 8.9 Total Bilirubin 0.6 AST 18 ALT 15 Alkaline Phosphatase 86 Troponin I C-Reactive Protein Total Protein 7.4 Albumin 3.1 L Triglycerides Cholesterol LDL Cholesterol, Calc HDL Cholesterol Cholesterol/HDL Ratio Urine Color Urine Clarity Urine pH Ur Specific [place] Urine Protein Urine Glucose (UA) Urine Ketones Urine Occult Blood Urine Nitrate Urine Bilirubin Urine Urobilinogen Ur Leukocyte Esterase Urine RBC Urine WBC Urine WBC Clumps Ur Squamous Epith Cells Urine Bacteria Micro UA Comment Ur Microscopic Review Urine Culture Comments 01/06/19 01/06/19 01/06/19 12:30 12:30 12:40 WBC RBC Hgb Hct MCV MCH MCHC RDW Plt Count MPV Prelim Diff (Auto) Neut % (Auto) Lymph % (Auto) [place] % (Auto) Eos % (Auto) Baso % (Auto) Neut # (Auto) Lymph # (Auto) [place] # (Auto) Eos # (Auto) Baso # (Auto) WBC Differential Diff Scan Differential Comment Platelet Estimate Platelet Morphology Acanthocytes (Spur) Keratocytes ESR PT INR APTT Fibrinogen Sodium Potassium Chloride Carbon Dioxide Anion Gap BUN Creatinine Estimated GFR Random Glucose Lactic Acid Calcium Total Bilirubin AST ALT Alkaline Phosphatase Troponin I C-Reactive Protein 7.08 H Total Protein Albumin Triglycerides 231 H Cholesterol 189 LDL Cholesterol, Calc 85 HDL Cholesterol 58.0 Cholesterol/HDL Ratio 3.25 Urine Color Red Urine Clarity Cloudy H Urine pH 6.0 Ur Specific [place] 1.029 Urine Protein 100 H Urine Glucose (UA) 50 Urine Ketones Negative Urine Occult Blood Large H Urine Nitrate Negative Urine Bilirubin Negative Urine Urobilinogen Less than 2 Ur Leukocyte Esterase Negative Urine RBC Urine WBC Urine WBC Clumps Many H Ur Squamous Epith Cells 203 Urine Bacteria Few H Micro UA Comment Cath-culture ind Ur Microscopic Review Not Reportable Urine Culture Comments Cath-cult indicated 01/06/19 01/06/19 01/06/19 20:35 20:35 20:35 WBC 11.2 H RBC 3.09 L Hgb 9.5 L Hct 28.9 L MCV 93.7 MCH 30.8 MCHC 32.9 RDW 15.0 Plt Count 368 MPV 7.3 Prelim Diff (Auto) Slide review pending Neut % (Auto) 89.2 H Lymph % (Auto) 3.5 L [place] % (Auto) 5.3 Eos % (Auto) 1.5 Baso % (Auto) 0.5 Neut # (Auto) 10.0 H Lymph # (Auto) 0.4 L [place] # (Auto) 0.6 Eos # (Auto) 0.2 Baso # (Auto) 0.1 WBC Differential . Diff Scan Auto diff confirmed Differential Comment . Platelet Estimate Normal Platelet Morphology Normal Acanthocytes (Spur) Occ H Keratocytes Occ H ESR PT 11.5 INR 1.1 APTT 30.2 Cancelled Fibrinogen 472 H Sodium Potassium Chloride Carbon Dioxide Anion Gap BUN Creatinine Estimated GFR Random Glucose Lactic Acid Calcium Total Bilirubin AST ALT Alkaline Phosphatase Troponin I C-Reactive Protein Total Protein Albumin Triglycerides Cholesterol LDL Cholesterol, Calc HDL Cholesterol Cholesterol/HDL Ratio Urine Color Urine Clarity Urine pH Ur Specific [place] Urine Protein Urine Glucose (UA) Urine Ketones Urine Occult Blood Urine Nitrate Urine Bilirubin Urine Urobilinogen Ur Leukocyte Esterase Urine RBC Urine WBC Urine WBC Clumps Ur Squamous Epith Cells Urine Bacteria Micro UA Comment Ur Microscopic Review Urine Culture Comments 01/06/19 01/07/19 01/07/19 23:26 05:33 05:33 WBC RBC Hgb Hct MCV MCH MCHC RDW Plt Count MPV Prelim Diff (Auto) Neut % (Auto) Lymph % (Auto) [place] % (Auto) Eos % (Auto) Baso % (Auto) Neut # (Auto) Lymph # (Auto) [place] # (Auto) Eos # (Auto) Baso # (Auto) WBC Differential Diff Scan Differential Comment Platelet Estimate Platelet Morphology Acanthocytes (Spur) Keratocytes ESR PT 12.7 H INR 1.3 APTT Fibrinogen Sodium 138 Potassium 4.8 Chloride 108 H Carbon Dioxide 18.9 L Anion Gap 11 BUN 21 H Creatinine 2.33 H Estimated GFR 27 L Random Glucose 113 H Lactic Acid 1.9 Calcium 7.7 L D Total Bilirubin 1.2 H AST 144 H ALT 60 Alkaline Phosphatase 135 H Troponin I C-Reactive Protein Total Protein 6.0 L D Albumin 2.3 L D Triglycerides Cholesterol LDL Cholesterol, Calc HDL Cholesterol Cholesterol/HDL Ratio Urine Color Urine Clarity Urine pH Ur Specific [place] Urine Protein Urine Glucose (UA) Urine Ketones Urine Occult Blood Urine Nitrate Urine Bilirubin Urine Urobilinogen Ur Leukocyte Esterase Urine RBC Urine WBC Urine WBC Clumps Ur Squamous Epith Cells Urine Bacteria Micro UA Comment Ur Microscopic Review Urine Culture Comments 01/07/19 05:33 WBC RBC Hgb Hct MCV MCH MCHC RDW Plt Count MPV Prelim Diff (Auto) Neut % (Auto) Lymph % (Auto) [place] % (Auto) Eos % (Auto) Baso % (Auto) Neut # (Auto) Lymph # (Auto) [place] # (Auto) Eos # (Auto) Baso # (Auto) WBC Differential Diff Scan Differential Comment Platelet Estimate Platelet Morphology Acanthocytes (Spur) Keratocytes ESR PT INR APTT Fibrinogen Sodium Potassium Chloride Carbon Dioxide Anion Gap BUN Creatinine Estimated GFR Random Glucose Lactic Acid Calcium Total Bilirubin AST ALT Alkaline Phosphatase Troponin I 0.04 C-Reactive Protein Total Protein Albumin Triglycerides Cholesterol LDL Cholesterol, Calc HDL Cholesterol Cholesterol/HDL Ratio Urine Color Urine Clarity Urine pH Ur Specific [place] Urine Protein Urine Glucose (UA) Urine Ketones Urine Occult Blood Urine Nitrate Urine Bilirubin Urine Urobilinogen Ur Leukocyte Esterase Urine RBC Urine WBC Urine WBC Clumps Ur Squamous Epith Cells Urine Bacteria Micro UA Comment Ur Microscopic Review Urine Culture Comments Result Diagrams: 01/08/19 06:50 01/08/19 06:50 Personally reviewed images: Yes Imaging: ITS Impressions Abdomen/Pelvis CT 01/06/19 00:00 CONCLUSION: 1. Mild right-sided hydroureteronephrosis extending to the UV junction without radiopaque renal calculi. 2. Bladder is completely decompressed secondary to Galvez catheter with a 1 cm calcified density adjacent to the Galvez balloon in the bladder which may reflect a bladder calculus. 3. Air within the bladder likely due to catheterization. 4. Persistent diffuse sclerosis and expansion of the right ilium, acetabulum, coccyx and pubic rami with new focal sclerosis involving the posterior right L5 vertebral body and left ilium consistent with progressive metastatic disease in this patient with history of prostate CA. 5. Additional stable ancillary findings, as above. Assessment and Plan - Assessment (1) Gross hematuria Code(s): R31.0 - Gross hematuria Status: Acute (2) Prostate cancer Code(s): C61 - Malignant neoplasm of prostate Status: Acute (3) UTI (urinary tract infection) Code(s): N39.0 - Urinary tract infection, site not specified Status: Acute - Plan Urologic impression: 1. Metastatic prostate cancer with mild right hydronephrosis likely related to disease progression 2. Gross hematuria likely exacerbated by the presence of a UTI 3. Urinary tract infection Recommendations: 1. Agree with present management of urinary tract infection 2. Maintain Galvez catheter to gravity drainage and discharge patient home with Galvez even after the urine clears. 3. Patient to follow-up with his established oncologist [facility] the [facility] after hospital discharge 4. Patient will likely require cystoscopic evaluation sometime in the near future and this can be performed by urology [facility] [place] the [facility]
[2019-01-07 10:12] LABS: Baso # (Auto) 0.1 th/mm3 (0.0-0.2); Baso % (Auto) 0.9 % (0.0-2.0); Eos # (Auto) 0.2 th/mm3 (0.0-0.4); Eos % (Auto) 1.4 % (0.0-4.0); Hematocrit 27.5 % (39.0-51.0); Hemoglobin 9.1 gm/dL (13.0-17.0); Lymph # (Auto) 0.2 th/mm3 (1.0-4.8); Lymph % (Auto) 1.4 % (9.0-44.0); Mean Corpuscular HGB Conc 33.2 % (32.0-36.0); Mean Corpuscular Hemoglobin 31.5 pg (27.0-34.0); Mean Corpuscular Volume 94.7 fL (80.0-100.0); Mean Platelet Volume 7.2 fL (7.0-11.0); Mono # (Auto) 0.4 th/mm3 (0.0-0.9); Mono % (Auto) 3.7 % (0.0-8.0); Neut # (Auto) 10.6 th/mm3 (1.8-7.7); Neut % (Auto) 92.6 % (16.0-70.0); Platelet Count 292 th/mm3 (150-450); White Blood Count 11.4 th/mm3 (4.0-11.0)
--- NOTE | 2019-01-07 10:35 | P.CONID ---
History of Present Illness Service: Infectious Disease Consult date: 01/07/19 Requesting Physician: Ingrid Workman Reason for Consult: Assist with antibiotics Primary Care Provider: [facility] History of Present Illness: Patient is seen and examined. Records reviewed. Patient is an 83-year-old male, with known history of prostate cancer, recently diagnosed to have recurrence, and metastatic disease, presented to the hospital complaining of severe suprapubic abdominal pain. Patient apparently has had problem with urinary retention, and he has been requiring Galvez catheter for this problem since I believe September 2018. In October, he was hospitalized at the [facility] due to urinary retention. According to the patient while he was in there they tried straight catheter procedure for his problem, and patient stated he developed hematuria. He was switched back to Galvez catheter, and he was discharged to the [facility] rehab. Patient stated that his catheter was changed in the rehab once, but he could not remember the last time it was changed. The candy mixer of January 06, he started experiencing severe pain over his bladder and he had a sensation that he needed to go. In the ED they did a bladder scan, and apparently the volume was about 30 mL. He had hematuria at that time, and urine culture was sent and he was sent back to the rehab facility. Apparently the pain medication prescribed to him was not working, so the patient was brought back to the hospital and has now been admitted. Patient currently is complaining of nausea and dry heaves. He is also complaining of significant pain in the suprapubic region. He has gross hematuria and he is urine bag. Patient has been febrile up to 102. CT of the abdomen and pelvis is showing evidence of right hydro-ureteric nephrosis , and there was also possibly a bladder calculi. The bladder is decompressed. Patient gives a history of penicillin allergy with itching. Infectious disease consultation has been requested to assist with antibiotic management. Review of Systems Constitutional: Reports fever(s), Denies lack of energy Eyes: Denies discharge, Denies dry eyes Ears, Nose, Mouth, and Throat: Denies difficulty swallowing, Denies ear pain, Denies facial pain, Denies nasal congestion, Denies nasal discharge, Denies pain with swallowing, Denies sore throat Cardiovascular: Denies chest pain, Denies foot swelling, Denies leg swelling, Denies shortness of breath Respiratory: Denies chest congestion, Denies cough, Denies shortness of breath Gastrointestinal: Reports abdominal pain, Reports nausea, Reports other (dry heaves), Denies loose stools, Denies vomiting Genitourinary: Reports blood in urine, Reports decreased urination, Reports difficulty urinating, Reports penile discharge, Reports other (suprapubic pain) Musculoskeletal: Denies joint pain, Denies joint swelling Skin/Breast: Denies rash, Denies sores, Denies wounds Neurologic: Denies fainting, Denies headache(s) PMFSH - History History Provided By: Patient - Medical History Medical History: Medical History (Last Reviewed 01/07/19 @ 10:27 by Yessenia King MD) Anemia CHF (congestive heart failure) Hypertension Muscle weakness 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 Thrombocytopenia - Surgical History Surgical History: Surgical History (Last Reviewed 01/07/19 @ 10:27 by Yessenia King MD) H/O removal of testicle History of cholecystectomy Hx of appendectomy Hx of radical prostatectomy - Tobacco History Second Hand Smoke Exposure: No Tobacco Use In Past 30 Days: No Smoking Status: Never smoker - Alcohol History How Often Do You Have a Drink Containing Alcohol: 2 to 4 times a month - Substance Use History Substance History: No History of Abuse - Travel History Recent Travel Out of the Country Within the Last 8 Weeks: No - Immunization History Tetanus Immunization: <5 Years Hx Influenza Vaccine This Season: Yes Medications and Allergies Active Medications: Active Medications Acetaminophen (Tylenol) 650 mg PO Q4H PRN PRN Reason: Temp > 100.4 Acetaminophen (Tylenol) 650 mg PO Q6HR PRN PRN Reason: PAIN SCALE 1 TO 2 Al Hydroxide/Mg Hydroxide (Milk Of Magnfredy Liq) 30 ml PO Q12H PRN PRN Reason: Mild Constipation Bisacodyl (Dulcolax Supp) 10 mg RECTAL DAILY PRN PRN Reason: SEVERE CONSITIPATION Cyanocobalamin (Vitamin B12) 1,000 mcg PO DAILY [facility] Last Admin: 01/07/19 09:20 Dose: Not Given Sodium Chloride (Ns Inj) 1,000 mls @ 100 mls/hr IV.CONT .Q10H [facility] Last Infusion: 01/07/19 09:20 Dose: 0 mls/hr Levofloxacin/Dextrose (Levaquin 750 Mg Premix Inj) 150 mls @ 100 mls/hr IV.SIG Q24H [facility] Lactobacillus Acidophilus (Lactinex) 2 tab PO BID [facility] Last Admin: 01/07/19 09:19 Dose: Not Given Lactulose (Lactulose Liq) 30 ml PO DAILY PRN PRN Reason: SEVERE CONSITIPATION Metoprolol Tartrate (Lopressor) 12.5 mg PO BID [facility] Last Admin: 01/07/19 09:19 Dose: Not Given Morphine Sulfate (Morphine Inj) 2 mg IV.PUSH Q3H PRN PRN Reason: PAIN 6-10;IF UNABLE TO TAKE PO Last Admin: 01/07/19 09:12 Dose: 2 mg Morphine Sulfate (Morphine Inj) 4 mg IV.PUSH Q3H PRN PRN Reason: BREAKTHROUGH PAIN Naloxone HCl (Narcan Inj) 0.4 mg IV.PUSH UNSCH PRN PRN Reason: SEE LABEL COMMENTS Ondansetron HCl (Zofran Inj) 4 mg IV.PUSH Q6H PRN PRN Reason: NAUSEA OR VOMITING Last Admin: 01/07/19 00:41 Dose: 4 mg Oxybutynin Chloride (Ditropan) 5 mg PO TID [facility] Last Admin: 01/07/19 09:19 Dose: Not Given Oxycodone/Acetaminophen (Percocet 5/325 Mg) 1 tab PO Q6H PRN PRN Reason: PAIN SCALE 3 TO 5 Pantoprazole Sodium (Protonix) 40 mg PO DAILY [facility] Last Admin: 01/07/19 09:20 Dose: Not Given Pt Own Xtandi 160 Mg 0 each PO DAILY [facility] Last Admin: 01/07/19 09:20 Dose: Not Given Pravastatin Sodium (Pravachol) 40 mg PO [facility] Senna/Docusate Sodium (Nannette-Colace) 1 tab PO BID [facility] Last Admin: 01/07/19 09:20 Dose: Not Given Sennosides (Senokot) 17.2 mg PO Q12H PRN PRN Reason: Moderate Constipation Sodium Chloride (Ns Flush) 2 ml IV.FLUSH BID [facility] Last Admin: 01/07/19 09:20 Dose: Not Given Sodium Chloride (Ns Flush) 2 ml IV.FLUSH PRN PRN PRN Reason: FLUSH AFTER USING IV ACCESS Tamsulosin HCl (Flomax) 0.4 mg PO QPM [facility] Allergies Allergy/AdvReac Type Severity Reaction Status Date / Time Penicillins Allergy Itching Verified 01/06/19 02:12 Home Medications Medication Instructions Recorded Confirmed Type Lactobacillus rhamnosus GG 2 BID 01/06/19 History [Culturelle] acetaminophen 650 PO Q4HR PRN 01/06/19 History aspirin [Aspirin Low Dose] 81 PO DAILY 01/06/19 History bisacodyl [Dulcolax (bisacodyl)] 10 OR DAILY PRN 01/06/19 History cyanocobalamin (vitamin B-12) 1,000 mcg PO DAILY 01/06/19 01/07/19 History enzalutamide [Xtandi] 160 mg PO DAILY 01/06/19 01/07/19 History magnesium hydroxide [Milk of 30 ml PO PRN 01/06/19 History Magnesia] metoprolol tartrate 12.5 PO BID 01/06/19 History pantoprazole [Protonix] 40 mg PO DAILY 01/06/19 01/07/19 History pravastatin 40 PO QPM 01/06/19 History prednisone 2.5 mg PO QPM 01/06/19 01/07/19 History prednisone 5 mg PO DAILY 01/06/19 01/07/19 History sodium phosphates [Fleet Enema] 118 ml OR PRN PRN 01/06/19 01/07/19 History tamsulosin 0.4 mg PO QPM 01/06/19 01/07/19 History docusate sodium 100 mg PO QPM 01/07/19 01/07/19 History ondansetron HCl [Zofran] 4 mg PO Q6HR PRN 01/07/19 01/07/19 History Exam Vital signs: Vital Signs 01/06/19 11:23 01/06/19 12:37 01/06/19 13:00 Temperature 97.7 F Pulse Rate 117 H 104 H 114 H Respiratory Rate 18 20 20 Blood Pressure 142/68 H 130/76 118/63 Pulse Oximetry 100 99 99 01/06/19 14:00 01/06/19 14:15 01/06/19 14:24 Temperature Pulse Rate 111 H 112 H 113 H Respiratory Rate 20 18 Blood Pressure 125/66 172/85 H 131/63 Pulse Oximetry 98 95 01/06/19 16:00 01/06/19 17:24 01/06/19 17:33 Temperature Pulse Rate 126 H 123 H Respiratory Rate 20 18 18 Blood Pressure 124/62 160/70 H Pulse Oximetry 99 01/06/19 17:45 01/06/19 20:00 01/07/19 00:00 Temperature 98.1 F 98.3 F 102.7 F H Pulse Rate 130 H 135 H 127 H Respiratory Rate 20 16 16 Blood Pressure 149/65 H 138/67 154/69 H Pulse Oximetry 91 L 93 L 96 01/07/19 02:18 01/07/19 04:00 01/07/19 08:00 Temperature 98.9 F 98.1 F 98.3 F Pulse Rate 119 H 118 H Respiratory Rate 20 18 Blood Pressure 127/58 L 119/58 L Pulse Oximetry 94 L 96 Intake & Output 01/06/19 01/07/19 01/07/19 18:59 06:59 18:59 Intake Total 1000 / 1000 1065 / 1065 Output Total 500 / 500 Balance 1000 / 1000 565 / 565 Weight 65.6 kg 69.1 kg Intake: IV 1000 / 1000 1065 / 1065 NS Inj 1,000 ML @ 100 mls/hr IV 1000 / 1000 .CONT .Q10H [facility] Rx#:[id number] Ofirmev Inj 650 mg In 65 ml @ 65 / 65 260 mls/hr IV.SIG ONCE ONE Rx#: [id number] NS Inj 1,000 ML @ Wide Open IV. 1000 / 1000 SIG BOLUS ONE Rx#:[id number] Output: Urine 500 / 500 Other: Date of Last Bowel Movement 01/04/19 Weight On Admission 65.6 kg Narrative: Physical examination GENERAL: Patient is a well-nourished, well-developed male, very uncomfortable due to the suprapubic pain, not in respiratory distress. SKIN: Cool and dry. No generalized rash, no ecchymoses and no evidence of embolic lesions. HEAD: Atraumatic. Normocephalic. No temporal wasting, or tenderness. EYES: [place] conjunctiva. No petechia or hemorrhage. Pupils equal, round and reactive to light. Extraocular movements full and intact. No scleral icterus. No injection or drainage. EARS, NOSE AND THROAT: Nose without bleeding or purulent nasal discharge. No sinus tenderness. Mucous membranes pink and moist. No oral lesions noted. No exudate. No oral thrush. NECK: Trachea midline. Supple and not tender, no meningeal signs CARDIOVASCULAR: Regular rate and rhythm. No murmurs, rubs or gallops heard RESPIRATORY: Clear to auscultation. Breath sounds equal bilaterally. No rales , wheezing or rhonchi ABDOMEN: Distended abdomen, with tenderness nika in lower quadrants and suprapubic region, bowel sounds present and normoactive, no guarding and no rebound. EXTREMITIES: No clubbing, cyanosis, or edema. No joint effusion, has good ROM. No calf tenderness. Well perfused and warm. : Galvez catheter in place, has gross hematuria, currently no urine seen in the tubing at time of exam NEUROLOGICAL: Awake and alert. Cranial nerves grossly intact. Motor grossly within normal limits. PSYCHIATRIC: Normal affect, calm and cooperative. LINE: No evidence of infection Results - Labs CBC & Chem 7: 01/06/19 20:35 01/07/19 05:33 Labs: Laboratory Results - last 24 hr 01/06/19 01/06/19 01/06/19 12:30 12:30 12:30 WBC 12.0 H RBC 3.44 L Hgb 10.7 L Hct 32.0 L MCV 92.9 MCH 31.1 MCHC 33.5 RDW 15.3 Plt Count 441 MPV 7.2 Prelim Diff (Auto) Neut % (Auto) 70.1 H Lymph % (Auto) 14.5 [place] % (Auto) 12.3 H Eos % (Auto) 2.4 Baso % (Auto) 0.7 Neut # (Auto) 8.4 H Lymph # (Auto) 1.7 [place] # (Auto) 1.5 H Eos # (Auto) 0.3 Baso # (Auto) 0.1 WBC Differential . Diff Scan Differential Comment Auto diff final Platelet Estimate Platelet Morphology Acanthocytes (Spur) Keratocytes ESR 95 H PT INR APTT Fibrinogen Sodium 137 Potassium 4.8 Chloride 104 Carbon Dioxide 21.0 Anion Gap 12 BUN 20 H Creatinine 1.92 H Estimated GFR 33 L Random Glucose 157 H Lactic Acid Calcium 8.9 Total Bilirubin 0.6 AST 18 ALT 15 Alkaline Phosphatase 86 Troponin I C-Reactive Protein Total Protein 7.4 Albumin 3.1 L Triglycerides Cholesterol LDL Cholesterol, Calc HDL Cholesterol Cholesterol/HDL Ratio Urine Color Urine Clarity Urine pH Ur Specific [place] Urine Protein Urine Glucose (UA) Urine Ketones Urine Occult Blood Urine Nitrate Urine Bilirubin Urine Urobilinogen Ur Leukocyte Esterase Urine RBC Urine WBC Urine WBC Clumps Ur Squamous Epith Cells Urine Bacteria Micro UA Comment Ur Microscopic Review Urine Culture Comments 01/06/19 01/06/19 01/06/19 12:30 12:30 12:40 WBC RBC Hgb Hct MCV MCH MCHC RDW Plt Count MPV Prelim Diff (Auto) Neut % (Auto) Lymph % (Auto) [place] % (Auto) Eos % (Auto) Baso % (Auto) Neut # (Auto) Lymph # (Auto) [place] # (Auto) Eos # (Auto) Baso # (Auto) WBC Differential Diff Scan Differential Comment Platelet Estimate Platelet Morphology Acanthocytes (Spur) Keratocytes ESR PT INR APTT Fibrinogen Sodium Potassium Chloride Carbon Dioxide Anion Gap BUN Creatinine Estimated GFR Random Glucose Lactic Acid Calcium Total Bilirubin AST ALT Alkaline Phosphatase Troponin I C-Reactive Protein 7.08 H Total Protein Albumin Triglycerides 231 H Cholesterol 189 LDL Cholesterol, Calc 85 HDL Cholesterol 58.0 Cholesterol/HDL Ratio 3.25 Urine Color Red Urine Clarity Cloudy H Urine pH 6.0 Ur Specific [place] 1.029 Urine Protein 100 H Urine Glucose (UA) 50 Urine Ketones Negative Urine Occult Blood Large H Urine Nitrate Negative Urine Bilirubin Negative Urine Urobilinogen Less than 2 Ur Leukocyte Esterase Negative Urine RBC Urine WBC Urine WBC Clumps Many H Ur Squamous Epith Cells 203 Urine Bacteria Few H Micro UA Comment Cath-culture ind Ur Microscopic Review Not Reportable Urine Culture Comments Cath-cult indicated 01/06/19 01/06/19 01/06/19 20:35 20:35 20:35 WBC 11.2 H RBC 3.09 L Hgb 9.5 L Hct 28.9 L MCV 93.7 MCH 30.8 MCHC 32.9 RDW 15.0 Plt Count 368 MPV 7.3 Prelim Diff (Auto) Slide review pending Neut % (Auto) 89.2 H Lymph % (Auto) 3.5 L [place] % (Auto) 5.3 Eos % (Auto) 1.5 Baso % (Auto) 0.5 Neut # (Auto) 10.0 H Lymph # (Auto) 0.4 L [place] # (Auto) 0.6 Eos # (Auto) 0.2 Baso # (Auto) 0.1 WBC Differential . Diff Scan Auto diff confirmed Differential Comment . Platelet Estimate Normal Platelet Morphology Normal Acanthocytes (Spur) Occ H Keratocytes Occ H ESR PT 11.5 INR 1.1 APTT 30.2 Cancelled Fibrinogen 472 H Sodium Potassium Chloride Carbon Dioxide Anion Gap BUN Creatinine Estimated GFR Random Glucose Lactic Acid Calcium Total Bilirubin AST ALT Alkaline Phosphatase Troponin I C-Reactive Protein Total Protein Albumin Triglycerides Cholesterol LDL Cholesterol, Calc HDL Cholesterol Cholesterol/HDL Ratio Urine Color Urine Clarity Urine pH Ur Specific [place] Urine Protein Urine Glucose (UA) Urine Ketones Urine Occult Blood Urine Nitrate Urine Bilirubin Urine Urobilinogen Ur Leukocyte Esterase Urine RBC Urine WBC Urine WBC Clumps Ur Squamous Epith Cells Urine Bacteria Micro UA Comment Ur Microscopic Review Urine Culture Comments 01/06/19 01/07/19 01/07/19 23:26 05:33 05:33 WBC RBC Hgb Hct MCV MCH MCHC RDW Plt Count MPV Prelim Diff (Auto) Neut % (Auto) Lymph % (Auto) [place] % (Auto) Eos % (Auto) Baso % (Auto) Neut # (Auto) Lymph # (Auto) [place] # (Auto) Eos # (Auto) Baso # (Auto) WBC Differential Diff Scan Differential Comment Platelet Estimate Platelet Morphology Acanthocytes (Spur) Keratocytes ESR PT 12.7 H INR 1.3 APTT Fibrinogen Sodium 138 Potassium 4.8 Chloride 108 H Carbon Dioxide 18.9 L Anion Gap 11 BUN 21 H Creatinine 2.33 H Estimated GFR 27 L Random Glucose 113 H Lactic Acid 1.9 Calcium 7.7 L D Total Bilirubin 1.2 H AST 144 H ALT 60 Alkaline Phosphatase 135 H Troponin I C-Reactive Protein Total Protein 6.0 L D Albumin 2.3 L D Triglycerides Cholesterol LDL Cholesterol, Calc HDL Cholesterol Cholesterol/HDL Ratio Urine Color Urine Clarity Urine pH Ur Specific [place] Urine Protein Urine Glucose (UA) Urine Ketones Urine Occult Blood Urine Nitrate Urine Bilirubin Urine Urobilinogen Ur Leukocyte Esterase Urine RBC Urine WBC Urine WBC Clumps Ur Squamous Epith Cells Urine Bacteria Micro UA Comment Ur Microscopic Review Urine Culture Comments 01/07/19 05:33 WBC RBC Hgb Hct MCV MCH MCHC RDW Plt Count MPV Prelim Diff (Auto) Neut % (Auto) Lymph % (Auto) [place] % (Auto) Eos % (Auto) Baso % (Auto) Neut # (Auto) Lymph # (Auto) [place] # (Auto) Eos # (Auto) Baso # (Auto) WBC Differential Diff Scan Differential Comment Platelet Estimate Platelet Morphology Acanthocytes (Spur) Keratocytes ESR PT INR APTT Fibrinogen Sodium Potassium Chloride Carbon Dioxide Anion Gap BUN Creatinine Estimated GFR Random Glucose Lactic Acid Calcium Total Bilirubin AST ALT Alkaline Phosphatase Troponin I 0.04 C-Reactive Protein Total Protein Albumin Triglycerides Cholesterol LDL Cholesterol, Calc HDL Cholesterol Cholesterol/HDL Ratio Urine Color Urine Clarity Urine pH Ur Specific [place] Urine Protein Urine Glucose (UA) Urine Ketones Urine Occult Blood Urine Nitrate Urine Bilirubin Urine Urobilinogen Ur Leukocyte Esterase Urine RBC Urine WBC Urine WBC Clumps Ur Squamous Epith Cells Urine Bacteria Micro UA Comment Ur Microscopic Review Urine Culture Comments - Imaging Impressions Abdomen/Pelvis CT 01/06/19 00:00 CONCLUSION: 1. Mild right-sided hydroureteronephrosis extending to the UV junction without radiopaque renal calculi. 2. Bladder is completely decompressed secondary to Galvez catheter with a 1 cm calcified density adjacent to the Galvez balloon in the bladder which may reflect a bladder calculus. 3. Air within the bladder likely due to catheterization. 4. Persistent diffuse sclerosis and expansion of the right ilium, acetabulum, coccyx and pubic rami with new focal sclerosis involving the posterior right L5 vertebral body and left ilium consistent with progressive metastatic disease in this patient with history of prostate CA. 5. Additional stable ancillary findings, as above. Assessment and Plan - Plan IMpression Possible sepsis due to UTI Pyelonephritis, with gross hematuria, has hydroureteronephrosis on R - C/S with PSAE, sensitivity testing pending Hemorrhagic cystitis Hx prostate CA with bone mets Renal insufficiency Itching with PCN Recommendation Repeat BC Bladder scan to check volume ?If clots in bladder causing pain and decreased volume ?blockage in R kidney, etiology? IV Zerbaxa to cover PSAE as well as resistant strains - ok to give since he only had istching with PCN No need for vanco since pathogen usually due to GNR Follow C/S and adjust ABx accordingly evaluating patient Follow temps Monitor progress I will make further recommendations once work-up is completed I will follow along with you Thank you for this consultation Dr Nirav Zhou covering me this weekend
[2019-01-07 11:08] LABS: Lymphocytes 2 % (9-44); Monocytes 2 % (0-8); Platelet Estimate Normal (Normal); Platelet Morphology Normal (Normal)
[2019-01-07] MEDS: Ceftolozane/Tazobactam Inj 750 MG in Sodium Chlor 0.9% Inj 100 ML IV.SIG SCH ×2 (11:37→18:24)
--- NOTE | 2019-01-07 11:56 | ECG ---
Date Performed: 01/07/2019 Time Performed: 07:29:22 PTAGE: 83 years EKG: Sinus tachycardia Poor R wave progression - probable normal variant Low QRS voltages in pre cordial leads Borderline ECG Since the PREVIOUS TRACING , no significant change noted PREVIOUS TRACING 02/19/2017 19.56.44 DOCTOR: Russell Strauss Interpretating Date/Time 01/07/2019 11:55:36
--- NOTE | 2019-01-07 12:31 | P.PNFP ---
Subjective Interval history: Patient seen and examined at bedside this am. Overnight he was tachycardic and spiked a fever of 102.7F. This morning he is afebrile but remains tachycardic. Endorses nausea and chills. He reports pain is still persistent on lower abd pain. <Derrell Portia Rnagel Maddi - 01/07/19 12:31> Results - Labs Result diagrams: 01/07/19 21:10 01/07/19 16:06 <JiIngrid - 01/07/19 22:28> Abnormal lab results 01/06/19 01/07/19 01/07/19 Range/Units 12:30 05:33 05:33 WBC (4.0-11.0) th/mm3 RBC (4.50-5.90) mil/mm3 Hgb (13.0-17.0) gm/dL Hct (39.0-51.0) % Neut % (Auto) (16.0-70.0) % Lymph % (Auto) (9.0-44.0) % Neut # (Auto) (1.8-7.7) th/mm3 Lymph # (Auto) (1.0-4.8) th/mm3 Seg Neuts % (Manual) (16-70) % Band Neuts % (Manual) (0-6) % Lymphocytes % (Manual) (9-44) % Abs Neuts (Manual) (1.8-7.7) th/mm3 PT 12.7 H (9.8-11.6) sec Chloride 108 H (98-107) meq/L Carbon Dioxide 18.9 L (21.0-32.0) meq/L BUN 21 H (7-18) mg/dL Creatinine 2.33 H (0.60-1.30) mg/dL Estimated GFR 27 L (>89) mL/min Random Glucose 113 H (74-106) mg/dL Calcium 7.7 L D (8.5-10.1) mg/dL Calcium Adj for Albumin (8.5-10.1) mg/dL Total Bilirubin 1.2 H (0.2-1.0) mg/dL AST 144 H (15-37) U/L Alkaline Phosphatase 135 H (45-117) U/L Total Protein 6.0 L D (6.4-8.2) g/dL Albumin 2.3 L D (3.4-5.0) g/dL Triglycerides 231 H (42-150) mg/dL 01/07/19 01/07/19 01/07/19 Range/Units 09:51 16:06 21:10 WBC 11.4 H (4.0-11.0) th/mm3 RBC 2.90 L (4.50-5.90) mil/mm3 Hgb 9.1 L 8.6 L (13.0-17.0) gm/dL Hct 27.5 L 25.7 L (39.0-51.0) % Neut % (Auto) 92.6 H (16.0-70.0) % Lymph % (Auto) 1.4 L (9.0-44.0) % Neut # (Auto) 10.6 H (1.8-7.7) th/mm3 Lymph # (Auto) 0.2 L (1.0-4.8) th/mm3 Seg Neuts % (Manual) 81 H (16-70) % Band Neuts % (Manual) 15 H (0-6) % Lymphocytes % (Manual) 2 L (9-44) % Abs Neuts (Manual) 10.9 H (1.8-7.7) th/mm3 PT (9.8-11.6) sec Chloride 115 H (98-107) meq/L Carbon Dioxide 14.3 L (21.0-32.0) meq/L BUN 24 H (7-18) mg/dL Creatinine 2.00 H (0.60-1.30) mg/dL Estimated GFR 32 L (>89) mL/min Random Glucose (74-106) mg/dL Calcium 6.7 L* D (8.5-10.1) mg/dL Calcium Adj for Albumin 8.4 L (8.5-10.1) mg/dL Total Bilirubin (0.2-1.0) mg/dL AST (15-37) U/L Alkaline Phosphatase (45-117) U/L Total Protein (6.4-8.2) g/dL Albumin 1.9 L (3.4-5.0) g/dL Triglycerides (42-150) mg/dL Short CBC 01/07/19 01/07/19 Range/Units 09:51 21:10 WBC 11.4 H (4.0-11.0) th/mm3 Hgb 9.1 L 8.6 L (13.0-17.0) gm/dL Hct 27.5 L 25.7 L (39.0-51.0) % Plt Count 292 (150-450) th/mm3 BMP 01/07/19 01/07/19 05:33 16:06 Sodium 138 141 Potassium 4.8 4.9 Chloride 108 H 115 H Carbon Dioxide 18.9 L 14.3 L BUN 21 H 24 H Creatinine 2.33 H 2.00 H Calcium 7.7 L D 6.7 L* D Cardiac Enzymes 01/07/19 Range/Units 05:33 Troponin I 0.04 (0.02-0.05) ng/mL Liver Function 01/07/19 01/07/19 Range/Units 05:33 16:06 Total Bilirubin 1.2 H (0.2-1.0) mg/dL AST 144 H (15-37) U/L ALT 60 (12-78) U/L Alkaline Phosphatase 135 H (45-117) U/L Albumin 2.3 L D 1.9 L (3.4-5.0) g/dL <AlejabeenaIngrid - 01/07/19 22:28> Abnormal lab results 01/06/19 01/06/19 01/06/19 Range/Units 12:30 12:30 12:30 WBC 12.0 H (4.0-11.0) th/mm3 RBC 3.44 L (4.50-5.90) mil/mm3 Hgb 10.7 L (13.0-17.0) gm/dL Hct 32.0 L (39.0-51.0) % Neut % (Auto) 70.1 H (16.0-70.0) % Lymph % (Auto) (9.0-44.0) % Stearns % (Auto) 12.3 H (0.0-8.0) % Neut # (Auto) 8.4 H (1.8-7.7) th/mm3 Lymph # (Auto) (1.0-4.8) th/mm3 Stearns # (Auto) 1.5 H (0.0-0.9) th/mm3 Seg Neuts % (Manual) (16-70) % Band Neuts % (Manual) (0-6) % Lymphocytes % (Manual) (9-44) % Abs Neuts (Manual) (1.8-7.7) th/mm3 Acanthocytes (Spur) (None) Keratocytes (None) ESR 95 H (0-20) mm/hr PT (9.8-11.6) sec Fibrinogen (227-377) mg/dL Chloride (98-107) meq/L Carbon Dioxide (21.0-32.0) meq/L BUN 20 H (7-18) mg/dL Creatinine 1.92 H (0.60-1.30) mg/dL Estimated GFR 33 L (>89) mL/min Random Glucose 157 H (74-106) mg/dL Calcium (8.5-10.1) mg/dL Total Bilirubin (0.2-1.0) mg/dL AST (15-37) U/L Alkaline Phosphatase (45-117) U/L C-Reactive Protein (0.00-0.30) mg/dL Total Protein (6.4-8.2) g/dL Albumin 3.1 L (3.4-5.0) g/dL Triglycerides (42-150) mg/dL Urine Clarity (Clear) Urine Protein (Neg-Trace) mg/dL Urine Occult Blood (Negative) Urine WBC Clumps (None) Urine Bacteria (None) /hpf 01/06/19 01/06/19 01/06/19 Range/Units 12:30 12:30 12:40 WBC (4.0-11.0) th/mm3 RBC (4.50-5.90) mil/mm3 Hgb (13.0-17.0) gm/dL Hct (39.0-51.0) % Neut % (Auto) (16.0-70.0) % Lymph % (Auto) (9.0-44.0) % Stearns % (Auto) (0.0-8.0) % Neut # (Auto) (1.8-7.7) th/mm3 Lymph # (Auto) (1.0-4.8) th/mm3 Stearns # (Auto) (0.0-0.9) th/mm3 Seg Neuts % (Manual) (16-70) % Band Neuts % (Manual) (0-6) % Lymphocytes % (Manual) (9-44) % Abs Neuts (Manual) (1.8-7.7) th/mm3 Acanthocytes (Spur) (None) Keratocytes (None) ESR (0-20) mm/hr PT (9.8-11.6) sec Fibrinogen (227-377) mg/dL Chloride (98-107) meq/L Carbon Dioxide (21.0-32.0) meq/L BUN (7-18) mg/dL Creatinine (0.60-1.30) mg/dL Estimated GFR (>89) mL/min Random Glucose (74-106) mg/dL Calcium (8.5-10.1) mg/dL Total Bilirubin (0.2-1.0) mg/dL AST (15-37) U/L Alkaline Phosphatase (45-117) U/L C-Reactive Protein 7.08 H (0.00-0.30) mg/dL Total Protein (6.4-8.2) g/dL Albumin (3.4-5.0) g/dL Triglycerides 231 H (42-150) mg/dL Urine Clarity Cloudy H (Clear) Urine Protein 100 H (Neg-Trace) mg/dL Urine Occult Blood Large H (Negative) Urine WBC Clumps Many H (None) Urine Bacteria Few H (None) /hpf 01/06/19 01/06/19 01/07/19 Range/Units 20:35 20:35 05:33 WBC 11.2 H (4.0-11.0) th/mm3 RBC 3.09 L (4.50-5.90) mil/mm3 Hgb 9.5 L (13.0-17.0) gm/dL Hct 28.9 L (39.0-51.0) % Neut % (Auto) 89.2 H (16.0-70.0) % Lymph % (Auto) 3.5 L (9.0-44.0) % Stearns % (Auto) (0.0-8.0) % Neut # (Auto) 10.0 H (1.8-7.7) th/mm3 Lymph # (Auto) 0.4 L (1.0-4.8) th/mm3 Stearns # (Auto) (0.0-0.9) th/mm3 Seg Neuts % (Manual) (16-70) % Band Neuts % (Manual) (0-6) % Lymphocytes % (Manual) (9-44) % Abs Neuts (Manual) (1.8-7.7) th/mm3 Acanthocytes (Spur) Occ H (None) Keratocytes Occ H (None) ESR (0-20) mm/hr PT 12.7 H (9.8-11.6) sec Fibrinogen 472 H (227-377) mg/dL Chloride (98-107) meq/L Carbon Dioxide (21.0-32.0) meq/L BUN (7-18) mg/dL Creatinine (0.60-1.30) mg/dL Estimated GFR (>89) mL/min Random Glucose (74-106) mg/dL Calcium (8.5-10.1) mg/dL Total Bilirubin (0.2-1.0) mg/dL AST (15-37) U/L Alkaline Phosphatase (45-117) U/L C-Reactive Protein (0.00-0.30) mg/dL Total Protein (6.4-8.2) g/dL Albumin (3.4-5.0) g/dL Triglycerides (42-150) mg/dL Urine Clarity (Clear) Urine Protein (Neg-Trace) mg/dL Urine Occult Blood (Negative) Urine WBC Clumps (None) Urine Bacteria (None) /hpf 01/07/19 01/07/19 Range/Units 05:33 09:51 WBC 11.4 H (4.0-11.0) th/mm3 RBC 2.90 L (4.50-5.90) mil/mm3 Hgb 9.1 L (13.0-17.0) gm/dL Hct 27.5 L (39.0-51.0) % Neut % (Auto) 92.6 H (16.0-70.0) % Lymph % (Auto) 1.4 L (9.0-44.0) % Stearns % (Auto) (0.0-8.0) % Neut # (Auto) 10.6 H (1.8-7.7) th/mm3 Lymph # (Auto) 0.2 L (1.0-4.8) th/mm3 Stearns # (Auto) (0.0-0.9) th/mm3 Seg Neuts % (Manual) 81 H (16-70) % Band Neuts % (Manual) 15 H (0-6) % Lymphocytes % (Manual) 2 L (9-44) % Abs Neuts (Manual) 10.9 H (1.8-7.7) th/mm3 Acanthocytes (Spur) (None) Keratocytes (None) ESR (0-20) mm/hr PT (9.8-11.6) sec Fibrinogen (227-377) mg/dL Chloride 108 H (98-107) meq/L Carbon Dioxide 18.9 L (21.0-32.0) meq/L BUN 21 H (7-18) mg/dL Creatinine 2.33 H (0.60-1.30) mg/dL Estimated GFR 27 L (>89) mL/min Random Glucose 113 H (74-106) mg/dL Calcium 7.7 L D (8.5-10.1) mg/dL Total Bilirubin 1.2 H (0.2-1.0) mg/dL AST 144 H (15-37) U/L Alkaline Phosphatase 135 H (45-117) U/L C-Reactive Protein (0.00-0.30) mg/dL Total Protein 6.0 L D (6.4-8.2) g/dL Albumin 2.3 L D (3.4-5.0) g/dL Triglycerides (42-150) mg/dL Urine Clarity (Clear) Urine Protein (Neg-Trace) mg/dL Urine Occult Blood (Negative) Urine WBC Clumps (None) Urine Bacteria (None) /hpf Short CBC 01/06/19 01/06/19 01/07/19 Range/Units 12:30 20:35 09:51 WBC 12.0 H 11.2 H 11.4 H (4.0-11.0) th/mm3 Hgb 10.7 L 9.5 L 9.1 L (13.0-17.0) gm/dL Hct 32.0 L 28.9 L 27.5 L (39.0-51.0) % Plt Count 441 368 292 (150-450) th/mm3 BMP 01/06/19 01/07/19 12:30 05:33 Sodium 137 138 Potassium 4.8 4.8 Chloride 104 108 H Carbon Dioxide 21.0 18.9 L BUN 20 H 21 H Creatinine 1.92 H 2.33 H Calcium 8.9 7.7 L D Cardiac Enzymes 01/07/19 Range/Units 05:33 Troponin I 0.04 (0.02-0.05) ng/mL Liver Function 01/06/19 01/07/19 Range/Units 12:30 05:33 Total Bilirubin 0.6 1.2 H (0.2-1.0) mg/dL AST 18 144 H (15-37) U/L ALT 15 60 (12-78) U/L Alkaline Phosphatase 86 135 H (45-117) U/L Albumin 3.1 L 2.3 L D (3.4-5.0) g/dL Urine 01/06/19 Range/Units 12:40 Urine Color Red (Yellw/Straw) Urine Clarity Cloudy H (Clear) Urine pH 6.0 (5.0-8.5) Ur Specific Commodore 1.029 (1.002-1.035) Urine Protein 100 H (Neg-Trace) mg/dL Urine Glucose (UA) 50 (Negative) mg/dL <Portia Kellogg - 01/07/19 12:31> - Imaging Impressions Liver Ultrasound 01/07/19 00:00 CONCLUSION: 1. Minimal increase in echogenicity of the liver without mass or hydronephrosis. 2. There is no ductal dilatation <Ingrid Workman - 01/07/19 22:28> Impressions Abdomen/Pelvis CT 01/06/19 00:00 CONCLUSION: 1. Mild right-sided hydroureteronephrosis extending to the UV junction without radiopaque renal calculi. 2. Bladder is completely decompressed secondary to Galvez catheter with a 1 cm calcified density adjacent to the Galvez balloon in the bladder which may reflect a bladder calculus. 3. Air within the bladder likely due to catheterization. 4. Persistent diffuse sclerosis and expansion of the right ilium, acetabulum, coccyx and pubic rami with new focal sclerosis involving the posterior right L5 vertebral body and left ilium consistent with progressive metastatic disease in this patient with history of prostate CA. 5. Additional stable ancillary findings, as above. <Portia Kellogg - 01/07/19 12:31> Physical Exam Vital signs: Vital Signs 01/07/19 00:00 01/07/19 02:18 01/07/19 04:00 Temperature 102.7 F H 98.9 F 98.1 F Pulse Rate 127 H 119 H Respiratory Rate 16 20 Blood Pressure 154/69 H 127/58 L Pulse Oximetry 96 94 L 01/07/19 08:00 01/07/19 08:20 01/07/19 12:00 Temperature 98.3 F Pulse Rate 118 H 114 H 115 H Respiratory Rate 18 Blood Pressure 119/58 L Pulse Oximetry 96 01/07/19 12:11 01/07/19 16:00 01/07/19 16:02 Temperature 99.2 F 99.1 F Pulse Rate 117 H 111 H 112 H Respiratory Rate 18 19 Blood Pressure 120/59 L 141/80 H Pulse Oximetry 96 95 01/07/19 20:00 Temperature 98 F Pulse Rate 18 L Respiratory Rate 18 Blood Pressure 107/68 Pulse Oximetry 95 Intake & Output 01/07/19 01/07/19 01/08/19 06:59 18:59 06:59 Intake Total 1065 / 1065 1680 / 1680 Output Total 500 / 500 500 / 500 Balance 565 / 565 1180 / 1180 Weight 69.1 kg Intake: IV 1065 / 1065 1200 / 1200 NS Inj 1,000 ML @ 100 mls/hr IV 1000 / 1000 100 / 100 .CONT .Q10H GEORGE Rx#:[id number] Ofirmev Inj 650 mg In 65 ml @ 65 / 65 260 mls/hr IV.SIG ONCE ONE Rx#: [id number] Zerbaxa Inj 750 MG In NS Inj 100 / 100 100 ML @ 100 mls/hr IV.SIG Q8H GEORGE Rx#:[id number] NS Inj 1,000 ML @ Wide Open IV. 1000 / 1000 SIG BOLUS ONE Rx#:[id number] Oral 480 / 480 Output: Urine 500 / 500 500 / 500 Other: Date of Last Bowel Movement 01/04/19 # Bowel Movements 0 <Vey,Ingrid - 01/07/19 22:28> Vital Signs 01/06/19 12:37 01/06/19 13:00 01/06/19 14:00 Temperature Pulse Rate 104 H 114 H 111 H Respiratory Rate 20 20 20 Blood Pressure 130/76 118/63 125/66 Pulse Oximetry 99 99 98 01/06/19 14:15 01/06/19 14:24 01/06/19 16:00 Temperature Pulse Rate 112 H 113 H 126 H Respiratory Rate 18 20 Blood Pressure 172/85 H 131/63 124/62 Pulse Oximetry 95 99 01/06/19 17:24 01/06/19 17:33 01/06/19 17:45 Temperature 98.1 F Pulse Rate 123 H 130 H Respiratory Rate 18 18 20 Blood Pressure 160/70 H 149/65 H Pulse Oximetry 91 L 01/06/19 20:00 01/07/19 00:00 01/07/19 02:18 Temperature 98.3 F 102.7 F H 98.9 F Pulse Rate 135 H 127 H Respiratory Rate 16 16 Blood Pressure 138/67 154/69 H Pulse Oximetry 93 L 96 01/07/19 04:00 01/07/19 08:00 01/07/19 08:20 Temperature 98.1 F 98.3 F Pulse Rate 119 H 118 H 114 H Respiratory Rate 20 18 Blood Pressure 127/58 L 119/58 L Pulse Oximetry 94 L 96 Intake & Output 01/06/19 01/07/19 01/07/19 18:59 06:59 18:59 Intake Total 1000 / 1000 1065 / 1065 1100 / 1100 Output Total 500 / 500 Balance 1000 / 1000 565 / 565 1100 / 1100 Weight 65.6 kg 69.1 kg Intake: IV 1000 / 1000 1065 / 1065 1100 / 1100 NS Inj 1,000 ML @ 100 mls/hr IV 1000 / 1000 100 / 100 .CONT .Q10H GEORGE Rx#:[id number] Ofirmev Inj 650 mg In 65 ml @ 65 / 65 260 mls/hr IV.SIG ONCE ONE Rx#: [id number] NS Inj 1,000 ML @ Wide Open IV. 1000 / 1000 1000 / 1000 SIG BOLUS ONE Rx#:[id number] Output: Urine 500 / 500 Other: Date of Last Bowel Movement 01/04/19 01/04/19 Weight On Admission 65.6 kg <Portia Kellogg D - 01/07/19 12:31> Narrative: GENERAL: Elderly appearing male in mild distress due to pain. SKIN: Warm and dry. No rash. Pale appearing and slightly diaphoretic. EYES: No scleral icterus. No injection or drainage. PERRLA. EOMI. HENT: Normocephalic. Atraumatic. MMM. OP Benign. CARDIOVASCULAR: Regular rate and rhythm without obvious murmurs, gallops, or rubs. RESPIRATORY: Breath sounds equal bilaterally. No accessory muscle use. CTAB. GASTROINTESTINAL: Abdomen soft, suprapubic pain upon deep palpation, nondistended. BS WNL. GENITOURINARY:Triple-lumen Galvez catheter in place draining sanguinous urine. MUSCULOSKELETAL: No cyanosis or edema. Strength grossly WNL. non-tender calves BL. BACK: No CVA tenderness. NEURO/PSYCH: Afocal. Awake, alert, and oriented x3. <Portia Kellogg - 01/07/19 12:31> - Urinary Catheter Management Indwelling Urethral Catheter Cath placed during this visit: no <JiIngrid - 01/07/19 22:28> Reason for continuing: Gross Hematuria <JiIngrid - 01/07/19 22:28> Assessment and Plan - Assessment (1) Sepsis Code(s): A41.9 - Sepsis, unspecified organism Status: Acute (2) Acute hemorrhagic cystitis Code(s): N30.01 - Acute cystitis with hematuria Status: Acute (3) Prostate cancer metastatic to bone Code(s): C61 - Malignant neoplasm of prostate; C79.51 - Secondary malignant neoplasm of bone Status: Acute (4) Hypertension Code(s): I10 - Essential (primary) hypertension Status: Chronic (5) Hyperlipidemia Code(s): E78.5 - Hyperlipidemia, unspecified Status: Acute (6) Nutrition, metabolism, and development symptoms Code(s): R63.8 - Other symptoms and signs concerning food and fluid intake Status: Acute <JiIngrid - 01/07/19 22:28> (1) Sepsis Code(s): A41.9 - Sepsis, unspecified organism Status: Acute Plan: This is an 83 yo M with a history of prostate cancer, 25 years status post radical proctectomy, orchiectomy with failed penile prosthesis who presented after a 1 day history of lower abdominal pain and a 3 week history of hematuria. On admission patient met sepsis criteria to include tachycardia, white blood cell count of 12, with suspected source of infection being an acute cystitis. -Patient received 1 L bolus of normal saline in ED -Received 1 dose of levofloxacin 750 mg -Received 1 dose of Pyridium -H/H on admission 10.7/32 -WBC count of 12 -UA positive only for large occult blood Plan: This morning patient with continues with c/o lower abd pain will be receiving pain medication shortly. c/w IVF hydration oxybutynin 5 mg p.o. 3 times daily Zofran 4 mg every 6 for nausea Morphine and Percocet per Pain scale Strict I's and O's Urology consulted, appreciate recommendations Maintain Galvez catheter to gravity drainage and discharge patient home with Galvez even after the urine clears Patient has [facility] thus unable to f/u with urologist outpatient. Patient to be discharge with urine cath and f/u with urology at the [place] for cystoscopy evaluation. Infectious disease consulted, appreciate recommendations IV Zerbaxa to cover PSAE as well as resistant strains f/u C/S and adjust abx appropriately -Urine culture pending -Blood cultures no growth x1 day (2) Acute hemorrhagic cystitis Code(s): N30.01 - Acute cystitis with hematuria Status: Acute Plan: -H/H stable at 9.1/27.5 -Transfuse if hemoglobin falls below 7 Please see plan above for sepsis (3) Prostate cancer metastatic to bone Code(s): C61 - Malignant neoplasm of prostate; C79.51 - Secondary malignant neoplasm of bone Status: Acute Plan: Patient has history of prostate cancer status post prostatectomy 25 years ago with recurrence 3 years ago. Patient reports being on oral chemotherapy but cannot recall which. His medical records have been requested will follow up with results. -Follow-up with urology recommendations -Please see pain control under sepsis (4) Hypertension Code(s): I10 - Essential (primary) hypertension Status: Chronic Plan: Patient reports history of hypertension, reports being on metoprolol but does not know dose. Current medical records currently being retrieved from the [place]. -Patient is normotensive - continue to monitor - metoprolol to 12.5 mg twice daily (5) Hyperlipidemia Code(s): E78.5 - Hyperlipidemia, unspecified Status: Acute Plan: Patient reports being on a statin but cannot remember which statin. [facility] -Lipid panel shows elevated triglycerides 231, cholesterol 189, LDL 82, HDL 58 -c/w pravastatin 40 HS (6) Nutrition, metabolism, and development symptoms Code(s): R63.8 - Other symptoms and signs concerning food and fluid intake Status: Acute Plan: Fluids: Normal saline at 100 mL an hour Electrolytes: Replete as needed Nutrition: Renal diet DVT prophylaxis: Not indicated due to active bleeding, SCDs bilaterally <Portia Kellogg - 01/07/19 13:05> - Attending Attestation Patient seen, examined, and discussed this morning with resident team. I agree with assessment and management as documented and discussed with me. Pt remains with bladder spasms, pain and hematuria. Febrile overnight urology and id to see patient today. <Ingrid Workman - 01/07/19 22:28>
--- NOTE | 2019-01-07 12:50 | US ---
EXAM DATE: 01/07/2019 12:45 PM EST AGE/SEX: 83 years / Male INDICATIONS: Elevated liver functions. Abdominal pain. CLINICAL DATA: This is the patient's initial encounter. Patient reports that signs and symptoms have been present for 1 day and indicates a pain score of 7/10. MEDICAL/SURGICAL HISTORY: Anemia. Hypertension. CHF. Penile implant failure. Prostate cancer m etastatic to bone. Thrombocytopenia. Chemotherapy. Hyperlipidemia. Cholecystectomy. Appendectomy. Prostatectomy. Orchiectomy with failed penile prosthesis. [place] [facility] [place]/06/2019. . MEASUREMENTS: Liver:__ 13.5 cm. Common Bile Duct:__ 4mm. Right Kidney:__ 12. 6 x 5.2 x 5.3 cm. FINDINGS: Liver: Minimal increased echogenicity of the liver. Left lower difficult to evaluate because of body habitus. There is no bile duct dilatation. Portal Vein: Hepatopedal flow seen in portal vein. Common Duct: No intraluminal mass or stone visualized. Gallbladder: Surgically absent. Pancreas: The visualized portions are within normal limits Right Kidney: Mildly echogenic without mass or hydronephrosis. Other: Minimal calcification is present in the spleen. CONCLUSION: 1. Minimal increase in echogenicity of the liver without mass or hydronephrosis. 2. There is no ductal dilatation Electronically signed by: Lavon Floyd MD Board Certified Radiologist 01/07/2019 12:49 PM EST
[2019-01-07 17:36] LABS: Calcium 6.7 mg/dL (8.5-10.1); Carbon Dioxide 14.3 meq/L (21.0-32.0); Potassium 4.9 meq/L (3.5-5.1)
[2019-01-07 18:31] LABS: Albumin 1.9 g/dL (3.4-5.0); Calcium-Albumin Corrected 8.4 mg/dL (8.5-10.1)
[2019-01-07 21:37] LABS: Hematocrit 25.7 % (39.0-51.0); Hemoglobin 8.6 gm/dL (13.0-17.0)
[2019-01-08] MEDS: Ceftolozane/Tazobactam Inj 750 MG in Sodium Chlor 0.9% Inj 100 ML IV.SIG SCH ×2 (02:59→10:29)
[2019-01-08 07:31] LABS: Baso % (Auto) 0.6 % (0.0-2.0); Eos # (Auto) 0.2 th/mm3 (0.0-0.4); Eos % (Auto) 2.5 % (0.0-4.0); Hematocrit 24.5 % (39.0-51.0); Hemoglobin 8.2 gm/dL (13.0-17.0); Lymph # (Auto) 0.7 th/mm3 (1.0-4.8); Mean Corpuscular HGB Conc 33.5 % (32.0-36.0); Mean Corpuscular Hemoglobin 31.3 pg (27.0-34.0); Mean Corpuscular Volume 93.4 fL (80.0-100.0); Mean Platelet Volume 7.6 fL (7.0-11.0); Mono # (Auto) 0.5 th/mm3 (0.0-0.9); Mono % (Auto) 6.7 % (0.0-8.0); Neut # (Auto) 6.1 th/mm3 (1.8-7.7); Neut % (Auto) 81.2 % (16.0-70.0); Platelet Count 284 th/mm3 (150-450); Red Blood Count 2.62 mil/mm3 (4.50-5.90); Red Cell Distribution Width 14.8 % (11.6-17.2); White Blood Count 7.5 th/mm3 (4.0-11.0)
[2019-01-08 07:42] LABS: INR 1.2 Ratio; Prothrombin Time 12.2 sec (9.8-11.6)
[2019-01-08 07:55] LABS: Albumin 1.9 g/dL (3.4-5.0); Calcium 7.2 mg/dL (8.5-10.1); Carbon Dioxide 16.9 meq/L (21.0-32.0); Potassium 4.4 meq/L (3.5-5.1); Total Protein 5.1 g/dL (6.4-8.2)
[2019-01-08] MEDS: Morphine Inj 4 MG/ML Vial IV.PUSH PRN ×3 (09:13→22:30)
[2019-01-08] MEDS: Sod Chloride 0.9% Inj 1,000 ML IV.CONT SCH ×3 (09:19→22:32)
[2019-01-08] MEDS: Lactobacillus Acidophilus/L. Spores Tablet PO SCH ×2 (10:26→22:31)
[2019-01-08] MEDS: Metoprolol Tartrate 25 MG Tablet PO SCH ×2 (10:26→22:32)
[2019-01-08] MEDS: XTANDI 160 MG PO SCH (10:27)
[2019-01-08] MEDS: Senna/Docusate Sodium 8.6/50 MG Tablet PO SCH ×2 (10:27→22:31)
--- NOTE | 2019-01-08 10:29 | P.PNFP ---
Subjective Interval history: Patient seen and examined this am. Patient reports his pain has not improved. He continues to have nausea, no vomiting, however he wants to try to advance his diet. Denies CP, sob, fever, and chills. Results - Labs Result diagrams: 01/08/19 06:50 01/08/19 06:50 Abnormal lab results 01/07/19 01/07/19 01/07/19 Range/Units 09:51 16:06 21:10 RBC (4.50-5.90) mil/mm3 Hgb 8.6 L (13.0-17.0) gm/dL Hct 25.7 L (39.0-51.0) % Neut % (Auto) (16.0-70.0) % Lymph # (Auto) (1.0-4.8) th/mm3 Seg Neuts % (Manual) 81 H (16-70) % Band Neuts % (Manual) 15 H (0-6) % Lymphocytes % (Manual) 2 L (9-44) % Abs Neuts (Manual) 10.9 H (1.8-7.7) th/mm3 PT (9.8-11.6) sec Fibrinogen (227-377) mg/dL Chloride 115 H (98-107) meq/L Carbon Dioxide 14.3 L (21.0-32.0) meq/L BUN 24 H (7-18) mg/dL Creatinine 2.00 H (0.60-1.30) mg/dL Estimated GFR 32 L (>89) mL/min Calcium 6.7 L* D (8.5-10.1) mg/dL Calcium Adj for Albumin 8.4 L (8.5-10.1) mg/dL Direct Bilirubin (0.0-0.2) mg/dL AST (15-37) U/L ALT (12-78) U/L Alkaline Phosphatase (45-117) U/L Total Protein (6.4-8.2) g/dL Albumin 1.9 L (3.4-5.0) g/dL 01/08/19 01/08/19 01/08/19 Range/Units 06:50 06:50 06:50 RBC 2.62 L (4.50-5.90) mil/mm3 Hgb 8.2 L (13.0-17.0) gm/dL Hct 24.5 L (39.0-51.0) % Neut % (Auto) 81.2 H (16.0-70.0) % Lymph # (Auto) 0.7 L (1.0-4.8) th/mm3 Seg Neuts % (Manual) (16-70) % Band Neuts % (Manual) (0-6) % Lymphocytes % (Manual) (9-44) % Abs Neuts (Manual) (1.8-7.7) th/mm3 PT 12.2 H (9.8-11.6) sec Fibrinogen 459 H (227-377) mg/dL Chloride 117 H (98-107) meq/L Carbon Dioxide 16.9 L (21.0-32.0) meq/L BUN 28 H (7-18) mg/dL Creatinine 1.68 H (0.60-1.30) mg/dL Estimated GFR 39 L (>89) mL/min Calcium 7.2 L* (8.5-10.1) mg/dL Calcium Adj for Albumin (8.5-10.1) mg/dL Direct Bilirubin 0.3 H (0.0-0.2) mg/dL AST 155 H (15-37) U/L ALT 106 H (12-78) U/L Alkaline Phosphatase 148 H (45-117) U/L Total Protein 5.1 L D (6.4-8.2) g/dL Albumin 1.9 L (3.4-5.0) g/dL Short CBC 01/07/19 01/08/19 Range/Units 21:10 06:50 WBC 7.5 (4.0-11.0) th/mm3 Hgb 8.6 L 8.2 L (13.0-17.0) gm/dL Hct 25.7 L 24.5 L (39.0-51.0) % Plt Count 284 (150-450) th/mm3 BMP 01/07/19 01/08/19 16:06 06:50 Sodium 141 143 Potassium 4.9 4.4 Chloride 115 H 117 H Carbon Dioxide 14.3 L 16.9 L BUN 24 H 28 H Creatinine 2.00 H 1.68 H Calcium 6.7 L* D 7.2 L* Liver Function 01/07/19 01/08/19 Range/Units 16:06 06:50 Total Bilirubin 0.6 (0.2-1.0) mg/dL Direct Bilirubin 0.3 H (0.0-0.2) mg/dL AST 155 H (15-37) U/L ALT 106 H (12-78) U/L Alkaline Phosphatase 148 H (45-117) U/L Albumin 1.9 L 1.9 L (3.4-5.0) g/dL - Imaging Impressions Liver Ultrasound 01/07/19 00:00 CONCLUSION: 1. Minimal increase in echogenicity of the liver without mass or hydronephrosis. 2. There is no ductal dilatation Physical Exam Vital signs: Vital Signs 01/07/19 12:00 01/07/19 12:11 01/07/19 16:00 Temperature 99.2 F Pulse Rate 115 H 117 H 111 H Respiratory Rate 18 Blood Pressure 120/59 L Pulse Oximetry 96 01/07/19 16:02 01/07/19 20:00 01/08/19 00:00 Temperature 99.1 F 98 F 98.2 F Pulse Rate 112 H 111 H 107 H Respiratory Rate 19 18 18 Blood Pressure 141/80 H 107/68 102/59 L Pulse Oximetry 95 95 92 L 01/08/19 04:00 Temperature 97.9 F Pulse Rate 106 H Respiratory Rate 18 Blood Pressure 160/78 H Pulse Oximetry 95 Intake & Output 01/07/19 01/08/19 01/08/19 18:59 06:59 18:59 Intake Total 1680 / 1680 1100 / 1100 900 / 900 Output Total 500 / 500 1450 / 1450 Balance 1180 / 1180 -350 / -350 900 / 900 Intake: IV 1200 / 1200 1100 / 1100 900 / 900 NS Inj 1,000 ML @ 100 mls/hr IV 100 / 100 900 / 900 900 / 900 .CONT .Q10H GEORGE Rx#:[id number] Zerbaxa Inj 750 MG In NS Inj 100 / 100 200 / 200 100 ML @ 100 mls/hr IV.SIG Q8H GEORGE Rx#:[id number] NS Inj 1,000 ML @ Wide Open IV. 1000 / 1000 SIG BOLUS ONE Rx#:[id number] Oral 480 / 480 Output: Urine 500 / 500 Urine Amount (Catheter) 1450 / 1450 Indwelling Urethral Catheter 1450 / 1450 Other: Date of Last Bowel Movement 01/04/19 # Bowel Movements 0 Narrative: GENERAL: Elderly appearing male in mild distress due to pain. SKIN: Warm and dry. No rash. EYES: No scleral icterus. No injection or drainage. PERRLA. EOMI. CARDIOVASCULAR: Regular rate and rhythm without obvious murmurs, gallops, or rubs. RESPIRATORY: Breath sounds equal bilaterally. No accessory muscle use. CTAB. GASTROINTESTINAL: Abdomen soft, suprapubic pain upon deep palpation, nondistended. Positive BS. GENITOURINARY:Triple-lumen Galvez catheter in place draining sanguinous urine. MUSCULOSKELETAL: No cyanosis or edema. Strength grossly WNL. non-tender calves BL. NEURO/PSYCH: Afocal. Awake, alert, and oriented x3. - Urinary Catheter Management Indwelling Urethral Catheter Cath placed during this visit: no Reason for continuing: Gross Hematuria Assessment and Plan - Assessment (1) Sepsis Code(s): A41.9 - Sepsis, unspecified organism Status: Acute Plan: This is an 83 yo M with a history of prostate cancer, 25 years status post radical proctectomy, orchiectomy with failed penile prosthesis who presented after a 1 day history of lower abdominal pain and a 3 week history of hematuria. On admission patient met sepsis criteria to include tachycardia, white blood cell count of 12, with suspected source of infection being an acute cystitis. -Patient received 1 L bolus of normal saline in ED -Received 1 dose of levofloxacin 750 mg -Received 1 dose of Pyridium -H/H on admission 10.7/32 -WBC count of 12 -UA positive only for large occult blood Plan: This morning patient with continues with c/o lower abd pain c/w IVF hydration oxybutynin 5 mg p.o. 3 times daily Zofran 4 mg every 6 for nausea reglan x 1 due to continued nausea Pain management updated: Morphine for breakthrough and Percocet scheduled Strict I's and O's Urology consulted, appreciate recommendations Maintain Galvez catheter to gravity drainage and discharge patient home with Galvez even after the urine clears Patient has [facility] thus unable to f/u with urologist outpatient. Patient to be discharge with urine cath and f/u with urology at the [facility] for cystoscopy evaluation. Infectious disease consulted, appreciate recommendations IV Zerbaxa to cover PSAE as well as resistant strains f/u C/S and adjust abx appropriately -Urine culture: gram neg rods -Blood cultures no growth x2 day (2) Acute hemorrhagic cystitis Code(s): N30.01 - Acute cystitis with hematuria Status: Acute Plan: -H/H stable at 8.2/24.5 -Transfuse if hemoglobin falls below 7 Please see plan above for sepsis (3) Prostate cancer metastatic to bone Code(s): C61 - Malignant neoplasm of prostate; C79.51 - Secondary malignant neoplasm of bone Status: Acute Plan: Patient has history of prostate cancer status post prostatectomy 25 years ago with recurrence 3 years ago. Patient reports being on oral chemotherapy but cannot recall which. His medical records have been requested will follow up with results. -Follow-up with urology recommendations -Please see pain control under sepsis (4) Hypertension Code(s): I10 - Essential (primary) hypertension Status: Chronic Plan: Patient reports history of hypertension, reports being on metoprolol but does not know dose. [facility] -BP 139/69 this am - continue to monitor - metoprolol to 12.5 mg twice daily (5) Hyperlipidemia Code(s): E78.5 - Hyperlipidemia, unspecified Status: Acute Plan: Patient reports being on a statin but cannot remember which statin. [facility]. -Lipid panel shows elevated triglycerides 231, cholesterol 189, LDL 82, HDL 58 -c/w pravastatin 40 HS (6) Nutrition, metabolism, and development symptoms Code(s): R63.8 - Other symptoms and signs concerning food and fluid intake Status: Acute Plan: Fluids: Normal saline at 100 mL an hour Electrolytes: Replete as needed Nutrition: Renal diet DVT prophylaxis: Not indicated due to active bleeding, SCDs bilaterally
[2019-01-08] MEDS: oxyCODONE/Acetaminophen 10/325 Tablet PO SCH ×3 (11:39→23:41)
--- NOTE | 2019-01-08 16:25 | P.PNID ---
Subjective Remarks: Patient is seen and examined. Records reviewed. Patient is an 83-year-old male, with known history of prostate cancer, recently diagnosed to have recurrence, and metastatic disease, presented to the hospital complaining of severe suprapubic abdominal pain. Patient apparently has had problem with urinary retention, and he has been requiring Galvez catheter for this problem since I believe September 2018. In October, he was hospitalized at the [facility] due to urinary retention. According to the patient while he was in there they tried straight catheter procedure for his problem, and patient stated he developed hematuria. He was switched back to Galvez catheter, and he was discharged to the [facility] rehab. Patient stated that his catheter was changed in the rehab once, but he could not remember the last time it was changed. The [facility] of January 06, he started experiencing severe pain over his bladder and he had a sensation that he needed to go. In the ED they did a bladder scan, and apparently the volume was about 30 mL. He had hematuria at that time, and urine culture was sent and he was sent back to the rehab facility. Apparently the pain medication prescribed to him was not working, so the patient was brought back to the hospital and has now been admitted. Patient currently is complaining of nausea and dry heaves. He is also complaining of significant pain in the suprapubic region. He has gross hematuria and he is urine bag. Patient has been febrile up to 102. CT of the abdomen and pelvis is showing evidence of right hydro-ureteric nephrosis , and there was also possibly a bladder calculi. The bladder is decompressed. Patient gives a history of penicillin allergy with itching. Infectious disease consultation has been requested to assist with antibiotic management. Overnight events reviewed No fevers No rash No diarrhea Complains of dysuria and supra pubic discomfort. Antibiotics: Zerbaxa Lines: Lines ok Past Medical History: reviewed Allergies/Adverse Reactions: Allergies Penicillins Allergy (Verified 01/06/19 02:12) Itching Objective Vital Signs 01/07/19 20:00 01/08/19 00:00 01/08/19 04:00 Temperature 98 F 98.2 F 97.9 F Pulse Rate 111 H 107 H 106 H Respiratory Rate 18 18 18 Blood Pressure 107/68 102/59 L 160/78 H Pulse Oximetry 95 92 L 95 01/08/19 08:00 01/08/19 12:00 Temperature 98.2 F 97.2 F L Pulse Rate 101 H 106 H Respiratory Rate 20 20 Blood Pressure 139/69 162/86 H Pulse Oximetry 95 96 Intake & Output 01/07/19 01/08/19 01/08/19 18:59 06:59 18:59 Intake Total 1680 / 1680 1100 / 1100 1000 / 1000 Output Total 500 / 500 1450 / 1450 Balance 1180 / 1180 -350 / -350 1000 / 1000 Intake: IV 1200 / 1200 1100 / 1100 1000 / 1000 NS Inj 1,000 ML @ 100 mls/hr IV 100 / 100 900 / 900 900 / 900 .CONT .Q10H GEORGE Rx#:[id number] Zerbaxa Inj 750 MG In NS Inj 100 / 100 200 / 200 100 / 100 100 ML @ 100 mls/hr IV.SIG Q8H GEORGE Rx#:[id number] NS Inj 1,000 ML @ Wide Open IV. 1000 / 1000 SIG BOLUS ONE Rx#:[id number] Oral 480 / 480 Output: Urine 500 / 500 Urine Amount (Catheter) 1450 / 1450 Indwelling Urethral Catheter 1450 / 1450 Other: Date of Last Bowel Movement 01/04/19 # Bowel Movements 0 01/06/19 12:40 Catheterized Urine Urine Culture - Final Pseudomonas aeruginosa 01/07/19 12:40 Blood - Peripheral Aerobic Blood Culture - Preliminary No growth in 1 day 01/07/19 12:40 Blood - Peripheral Anaerobic Blood Culture - Final QNS - See aerobic report. 01/07/19 12:35 Blood - Peripheral Aerobic Blood Culture - Preliminary No growth in 1 day 01/07/19 12:35 Blood - Peripheral Anaerobic Blood Culture - Final QNS - See aerobic report. 01/06/19 09:51 Blood - Peripheral Aerobic Blood Culture - Preliminary No growth in 1 day 01/06/19 09:51 Blood - Peripheral Anaerobic Blood Culture - Preliminary No growth in 1 day 01/06/19 23:26 Blood - Peripheral Aerobic Blood Culture - Preliminary No growth in 2 days 01/06/19 23:26 Blood - Peripheral Anaerobic Blood Culture - Preliminary No growth in 2 days Lab - Hematology Results 01/06/19 01/07/19 01/07/19 20:35 09:51 21:10 WBC 11.2 H 11.4 H RBC 3.09 L 2.90 L Hgb 9.5 L 9.1 L 8.6 L Hct 28.9 L 27.5 L 25.7 L MCV 93.7 94.7 MCH 30.8 31.5 MCHC 32.9 33.2 RDW 15.0 15.0 Plt Count 368 292 MPV 7.3 7.2 Prelim Diff (Auto) Slide review pending Slide review pending Neut % (Auto) 89.2 H 92.6 H Lymph % (Auto) 3.5 L 1.4 L [place] % (Auto) 5.3 3.7 Eos % (Auto) 1.5 1.4 Baso % (Auto) 0.5 0.9 Neut # (Auto) 10.0 H 10.6 H Lymph # (Auto) 0.4 L 0.2 L [place] # (Auto) 0.6 0.4 Eos # (Auto) 0.2 0.2 Baso # (Auto) 0.1 0.1 WBC Differential . Manual diff final Diff Scan Auto diff confirmed Seg Neuts % (Manual) 81 H Band Neuts % (Manual) 15 H Lymphocytes % (Manual) 2 L Monocytes % (Manual) 2 Abs Neuts (Manual) 10.9 H Differential Comment . . Platelet Estimate Normal Normal Platelet Morphology Normal Normal Acanthocytes (Spur) Occ H Keratocytes Occ H 01/08/19 06:50 WBC 7.5 RBC 2.62 L Hgb 8.2 L Hct 24.5 L MCV 93.4 MCH 31.3 MCHC 33.5 RDW 14.8 Plt Count 284 MPV 7.6 Prelim Diff (Auto) Neut % (Auto) 81.2 H Lymph % (Auto) 9.0 [place] % (Auto) 6.7 Eos % (Auto) 2.5 Baso % (Auto) 0.6 Neut # (Auto) 6.1 Lymph # (Auto) 0.7 L [place] # (Auto) 0.5 Eos # (Auto) 0.2 Baso # (Auto) 0.0 WBC Differential . Diff Scan Seg Neuts % (Manual) Band Neuts % (Manual) Lymphocytes % (Manual) Monocytes % (Manual) Abs Neuts (Manual) Differential Comment Auto diff final Platelet Estimate Platelet Morphology Acanthocytes (Spur) Keratocytes Lab - Chemistry Results 01/06/19 01/06/19 01/07/19 12:30 23:26 05:33 Sodium 138 Potassium 4.8 Chloride 108 H Carbon Dioxide 18.9 L Anion Gap 11 BUN 21 H Creatinine 2.33 H Estimated GFR 27 L Random Glucose 113 H Lactic Acid 1.9 Calcium 7.7 L D Calcium Adj for Albumin Total Bilirubin 1.2 H Direct Bilirubin Indirect Bilirubin AST 144 H ALT 60 Alkaline Phosphatase 135 H Troponin I Total Protein 6.0 L D Albumin 2.3 L D Triglycerides 231 H Cholesterol 189 LDL Cholesterol, Calc 85 HDL Cholesterol 58.0 Cholesterol/HDL Ratio 3.25 01/07/19 01/07/19 01/08/19 05:33 16:06 06:50 Sodium 141 143 Potassium 4.9 4.4 Chloride 115 H 117 H Carbon Dioxide 14.3 L 16.9 L Anion Gap 12 9 BUN 24 H 28 H Creatinine 2.00 H 1.68 H Estimated GFR 32 L 39 L Random Glucose 103 92 Lactic Acid Calcium 6.7 L* D 7.2 L* Calcium Adj for Albumin 8.4 L 8.9 Total Bilirubin 0.6 Direct Bilirubin 0.3 H Indirect Bilirubin 0.3 AST 155 H ALT 106 H Alkaline Phosphatase 148 H Troponin I 0.04 Total Protein 5.1 L D Albumin 1.9 L 1.9 L Triglycerides Cholesterol LDL Cholesterol, Calc HDL Cholesterol Cholesterol/HDL Ratio Imaging: ITS Impressions Abdomen/Pelvis CT 01/06/19 00:00 CONCLUSION: 1. Mild right-sided hydroureteronephrosis extending to the UV junction without radiopaque renal calculi. 2. Bladder is completely decompressed secondary to Galvez catheter with a 1 cm calcified density adjacent to the Galvez balloon in the bladder which may reflect a bladder calculus. 3. Air within the bladder likely due to catheterization. 4. Persistent diffuse sclerosis and expansion of the right ilium, acetabulum, coccyx and pubic rami with new focal sclerosis involving the posterior right L5 vertebral body and left ilium consistent with progressive metastatic disease in this patient with history of prostate CA. 5. Additional stable ancillary findings, as above. Liver Ultrasound 01/07/19 00:00 CONCLUSION: 1. Minimal increase in echogenicity of the liver without mass or hydronephrosis. 2. There is no ductal dilatation Physical Exam: GENERAL: Patient is a well-nourished, well-developed male, very uncomfortable due to the suprapubic pain, not in respiratory distress. SKIN: Cool and dry. No generalized rash, no ecchymoses and no evidence of embolic lesions. HEAD: Atraumatic. Normocephalic. No temporal wasting, or tenderness. EYES: [place] conjunctiva. No petechia or hemorrhage. Pupils equal, round and reactive to light. Extraocular movements full and intact. No scleral icterus. No injection or drainage. EARS, NOSE AND THROAT: Nose without bleeding or purulent nasal discharge. No sinus tenderness. Mucous membranes pink and moist. No oral lesions noted. No exudate. No oral thrush. NECK: Trachea midline. Supple and not tender, no meningeal signs CARDIOVASCULAR: Regular rate and rhythm. No murmurs, rubs or gallops heard RESPIRATORY: Clear to auscultation. Breath sounds equal bilaterally. No rales , wheezing or rhonchi ABDOMEN: Distended abdomen, with tenderness nika in lower quadrants and suprapubic region, bowel sounds present and normoactive, no guarding and no rebound. EXTREMITIES: No clubbing, cyanosis, or edema. No joint effusion, has good ROM. No calf tenderness. Well perfused and warm. : Galvez catheter in place, has gross hematuria, currently no urine seen in the tubing at time of exam NEUROLOGICAL: Awake and alert. Cranial nerves grossly intact. Motor grossly within normal limits. PSYCHIATRIC: Normal affect, calm and cooperative. LINE: No evidence of infection Assessment and Plan - Plan IMpression Possible sepsis due to UTI Acute Pyelonephritis, with gross hematuria, has hydroureteronephrosis on R PSAE infection UTI Hemorrhagic cystitis Hx prostate CA with bone mets Acute Renal insufficiency Itching with PCN Recommendation Discontinue Zerbaxa IV Start Levaquin IV as PSAE [place] sensitive. RN to call to get Pyridium added. Follow cultures Follow clinical course. to resume care on 01/10/19. If any new clinical changes please call me sooner.
[2019-01-08 19:46] LABS: Hematocrit 26.1 % (39.0-51.0); Hemoglobin 8.9 gm/dL (13.0-17.0)
[2019-01-09] MEDS: Sod Chloride 0.9% Inj 1,000 ML IV.CONT SCH (03:39)
[2019-01-09] MEDS: oxyCODONE/Acetaminophen 10/325 Tablet PO SCH ×4 (05:39→22:49)
[2019-01-09 07:46] LABS: Baso # (Auto) 0.1 th/mm3 (0.0-0.2); Baso % (Auto) 0.7 % (0.0-2.0); Eos # (Auto) 0.1 th/mm3 (0.0-0.4); Hematocrit 22.6 % (39.0-51.0); Hemoglobin 7.5 gm/dL (13.0-17.0); Lymph # (Auto) 0.9 th/mm3 (1.0-4.8); Lymph % (Auto) 9.8 % (9.0-44.0); Mean Corpuscular HGB Conc 33.2 % (32.0-36.0); Mean Corpuscular Hemoglobin 31.4 pg (27.0-34.0); Mean Corpuscular Volume 94.7 fL (80.0-100.0); Mean Platelet Volume 7.6 fL (7.0-11.0); Mono # (Auto) 0.7 th/mm3 (0.0-0.9); Mono % (Auto) 7.4 % (0.0-8.0); Neut # (Auto) 7.4 th/mm3 (1.8-7.7); Neut % (Auto) 81.1 % (16.0-70.0); Platelet Count 330 th/mm3 (150-450); Red Blood Count 2.39 mil/mm3 (4.50-5.90); Red Cell Distribution Width 15.5 % (11.6-17.2); White Blood Count 9.1 th/mm3 (4.0-11.0)
[2019-01-09 08:39] LABS: Albumin 1.8 g/dL (3.4-5.0); Calcium 7.1 mg/dL (8.5-10.1); Carbon Dioxide 17.1 meq/L (21.0-32.0); Potassium 4.6 meq/L (3.5-5.1); Total Protein 5.2 g/dL (6.4-8.2)
--- NOTE | 2019-01-09 08:40 | P.PNFP ---
Subjective Interval history: Patient was seen at bedside this morning. There were no acute events overnight. Patient reports feeling much better and having significantly less pain in his abdomen. He reports that he has had some clots in his Galvez and although small requests that his bladder be irrigated. Patient also reports decreased to little appetite. Patient reports not eating but does not feel weak or lightheaded. After discussion patient agreed that he would drink chocolate Ensure with ice which will be ordered for him. At this time patient feels overall well. Patient denies any subjective fevers, chills, shortness of breath , chest pain, nausea, or vomiting. All questions were answered to the patient' s satisfaction. <Manoj Henry - 01/09/19 08:40> Results - Labs Result diagrams: 01/09/19 06:20 01/09/19 06:20 <JiKeciae - 01/09/19 20:08> Abnormal lab results 01/09/19 01/09/19 01/09/19 Range/Units 06:20 06:20 15:02 RBC 2.39 L (4.50-5.90) mil/mm3 Hgb 7.5 L (13.0-17.0) gm/dL Hct 22.6 L (39.0-51.0) % Neut % (Auto) 81.1 H (16.0-70.0) % Lymph # (Auto) 0.9 L (1.0-4.8) th/mm3 Chloride 116 H (98-107) meq/L Carbon Dioxide 17.1 L (21.0-32.0) meq/L BUN 40 H (7-18) mg/dL Creatinine 2.08 H (0.60-1.30) mg/dL Estimated GFR 31 L (>89) mL/min Calcium 7.1 L* (8.5-10.1) mg/dL AST 72 H (15-37) U/L Alkaline Phosphatase 142 H (45-117) U/L Total Protein 5.2 L (6.4-8.2) g/dL Albumin 1.8 L (3.4-5.0) g/dL MTS Gel Crossmatch See Detail Short CBC 01/09/19 Range/Units 06:20 WBC 9.1 (4.0-11.0) th/mm3 Hgb 7.5 L (13.0-17.0) gm/dL Hct 22.6 L (39.0-51.0) % Plt Count 330 (150-450) th/mm3 BMP 01/09/19 06:20 Sodium 142 Potassium 4.6 Chloride 116 H Carbon Dioxide 17.1 L BUN 40 H Creatinine 2.08 H Calcium 7.1 L* Liver Function 01/09/19 Range/Units 06:20 Total Bilirubin 0.3 (0.2-1.0) mg/dL AST 72 H (15-37) U/L ALT 78 (12-78) U/L Alkaline Phosphatase 142 H (45-117) U/L Albumin 1.8 L (3.4-5.0) g/dL <Ingrid Workman - 01/09/19 20:08> Abnormal lab results 01/08/19 01/09/19 Range/Units 19:14 06:20 RBC 2.39 L (4.50-5.90) mil/mm3 Hgb 8.9 L 7.5 L (13.0-17.0) gm/dL Hct 26.1 L 22.6 L (39.0-51.0) % Neut % (Auto) 81.1 H (16.0-70.0) % Lymph # (Auto) 0.9 L (1.0-4.8) th/mm3 Short CBC 01/08/19 01/09/19 Range/Units 19:14 06:20 WBC 9.1 (4.0-11.0) th/mm3 Hgb 8.9 L 7.5 L (13.0-17.0) gm/dL Hct 26.1 L 22.6 L (39.0-51.0) % Plt Count 330 (150-450) th/mm3 <Kerry Manoj Garg Oc - 01/09/19 08:40> Physical Exam Vital signs: Vital Signs 01/09/19 00:00 01/09/19 00:11 01/09/19 03:50 Temperature 97.8 F 97.4 F L Pulse Rate 114 H 113 H 105 H Respiratory Rate 17 17 Blood Pressure 132/70 112/58 L Pulse Oximetry 97 97 01/09/19 04:00 01/09/19 08:00 01/09/19 12:00 Temperature 97.6 F 97.7 F Pulse Rate 102 H 97 H 100 H Respiratory Rate 18 18 Blood Pressure 109/55 L 126/66 Pulse Oximetry 97 97 01/09/19 16:00 01/09/19 18:04 01/09/19 18:29 Temperature 97.9 F 97.9 F 98.2 F Pulse Rate 100 H 105 H 102 H Respiratory Rate 18 18 12 Blood Pressure 132/71 132/71 114/72 Pulse Oximetry 97 97 93 L Intake & Output 01/09/19 01/09/19 01/10/19 06:59 18:59 06:59 Intake Total 1120 / 1120 900 / 900 Output Total 900 / 900 100 / 100 Balance 220 / 220 800 / 800 Weight 71.9 kg Intake: IV 1000 / 1000 900 / 900 NS Inj 1,000 ML @ 100 mls/hr IV 1000 / 1000 900 / 900 .CONT .Q10H [facility] Rx#:[id number] Oral 120 / 120 0 / 0 Intake (Blood Product) Amt 0 / 0 Rbc As-3 Leukoreduced Unit 0 / 0 [id number] Output: Urine 600 / 600 100 / 100 Urine Amount (Catheter) 300 / 300 Indwelling Urethral Catheter 300 / 300 Other: # Bowel Movements 0 0 <Vey,Ingrid - 01/09/19 20:08> Vital Signs 01/08/19 12:00 01/08/19 16:00 01/08/19 19:55 Temperature 97.2 F L 97.3 F L 97.8 F Pulse Rate 106 H 111 H 113 H Respiratory Rate 20 20 17 Blood Pressure 162/86 H 159/81 H 142/63 H Pulse Oximetry 96 96 98 01/08/19 20:00 01/09/19 00:00 01/09/19 00:11 Temperature 97.8 F Pulse Rate 114 H 114 H 113 H Respiratory Rate 17 Blood Pressure 132/70 Pulse Oximetry 97 01/09/19 03:50 01/09/19 04:00 Temperature 97.4 F L Pulse Rate 105 H 102 H Respiratory Rate 17 Blood Pressure 112/58 L Pulse Oximetry 97 Intake & Output 01/08/19 01/09/19 01/09/19 18:59 06:59 18:59 Intake Total 1240 / 1240 1120 / 1120 Output Total 300 / 300 900 / 900 Balance 940 / 940 220 / 220 Weight 71.9 kg Intake: IV 1150 / 1150 1000 / 1000 NS Inj 1,000 ML @ 100 mls/hr IV 900 / 900 1000 / 1000 .CONT .Q10H [facility] Rx#:[id number] Zerbaxa Inj 750 MG In NS Inj 100 / 100 100 ML @ 100 mls/hr IV.SIG Q8H [facility] Rx#:[id number] Levaquin 750 mg Premix Inj 150 150 / 150 ML @ 100 mls/hr IV.SIG Q24H [facility] Rx#:[id number] Oral 90 / 90 120 / 120 Output: Urine 300 / 300 600 / 600 Urine Amount (Catheter) 300 / 300 Indwelling Urethral Catheter 300 / 300 Other: # Bowel Movements 0 0 <Manoj Henry 01/09/19 08:40> Narrative: GENERAL: Elderly appearing male lying comfortably in bed in no acute distress. SKIN: Warm and dry. No rash. EYES: No scleral icterus. No injection or drainage. PERRLA. EOMI. CARDIOVASCULAR: Regular rate and rhythm without obvious murmurs, gallops, or rubs. RESPIRATORY: Breath sounds equal bilaterally. No accessory muscle use. CTAB. GASTROINTESTINAL: Abdomen soft, suprapubic pain upon deep palpation, nondistended. Positive BS. GENITOURINARY: Galvez catheter in place draining sanguinous urine. MUSCULOSKELETAL: No cyanosis or edema. Strength grossly WNL. non-tender calves BL. NEURO/PSYCH: Afocal. Awake, alert, and oriented x3. <Manoj Henry 01/09/19 12:28> - Urinary Catheter Management Indwelling Urethral Catheter Cath placed during this visit: no <JiIngrid 01/09/19 20:08> no <Manoj Henry 01/09/19 12:28> Reason for continuing: Gross Hematuria <Manoj Henry 01/09/19 08:40> Assessment and Plan - Assessment (1) Prostate cancer metastatic to bone Code(s): C61 - Malignant neoplasm of prostate; C79.51 - Secondary malignant neoplasm of bone Status: Acute (2) Gross hematuria Code(s): R31.0 - Gross hematuria Status: Acute <JiIngrid 01/09/19 20:08> (1) Sepsis Code(s): A41.9 - Sepsis, unspecified organism Status: Acute Plan: This is an 83 yo M with a history of prostate cancer, 25 years status post radical proctectomy, orchiectomy with failed penile prosthesis who presented after a 1 day history of lower abdominal pain and a 3 week history of hematuria. On admission patient met sepsis criteria to include tachycardia, white blood cell count of 12, with suspected source of infection being an acute cystitis. -Patient received 1 L bolus of normal saline in ED -Received 1 dose of levofloxacin 750 mg -Received 1 dose of Pyridium -H/H on admission 10.7 -WBC count of 12 -UA positive only for large occult blood Plan: This morning patient has improvement of abd pain -c/w IVF hydration -oxybutynin 5 mg p.o. 3 times daily -Zofran 4 mg every 6 for nausea -Reglan x 1 due to continued nausea -Pain management updated: Morphine for breakthrough and Percocet scheduled -Strict I's and O's -Urology consulted, appreciate recommendations Maintain Galvez catheter to gravity drainage and discharge patient home with Galvez even after the urine clears Patient has [facility] thus unable to f/u with urologist outpatient. Patient to be discharge with urine cath and f/u with urology at the [place] for cystoscopy evaluation. -Infectious disease consulted, appreciate recommendations Continue Levoquine, renally dosed, 750mg Q48 -Urine culture: Pseudomonas -Blood cultures no growth x3 day (2) Acute hemorrhagic cystitis Code(s): N30.01 - Acute cystitis with hematuria Status: Acute Plan: -H/H 7.5 today -Transfuse if hemoglobin falls below 7 -2 units of PRBCs ordered -Irrigation with NS ordered (3) Prostate cancer metastatic to bone Code(s): C61 - Malignant neoplasm of prostate; C79.51 - Secondary malignant neoplasm of bone Status: Acute Plan: Patient has history of prostate cancer status post prostatectomy 25 years ago with recurrence 3 years ago. Patient reports being on oral chemotherapy but cannot recall which. His medical records have been requested will follow up with results. -Follow-up with urology recommendations -Please see pain control under sepsis -Face to face in for home health (4) Hypertension Code(s): I10 - Essential (primary) hypertension Status: Chronic Plan: Patient reports history of hypertension, reports being on metoprolol but does not know dose. Current medical records currently being retrieved from the [place]. -BP 139/69 this am - continue to monitor - metoprolol to 12.5 mg twice daily (5) Hyperlipidemia Code(s): E78.5 - Hyperlipidemia, unspecified Status: Acute Plan: Patient reports being on a statin but cannot remember which statin. [facility] -Lipid panel shows elevated triglycerides 231, cholesterol 189, LDL 82, HDL 58 -c/w pravastatin 40 HS (6) Nutrition, metabolism, and development symptoms Code(s): R63.8 - Other symptoms and signs concerning food and fluid intake Status: Acute Plan: Fluids: Normal saline at 100 mL an hour Electrolytes: Replete as needed Nutrition: Renal diet, ensure added DVT prophylaxis: Not indicated due to active bleeding, SCDs bilaterally <Manoj Henry - 01/09/19 12:21> - Attending Attestation Patient seen and examined this morning, discussed with Dr Payne. I agree with assessment and management as documented and discussed with me. Pt feels pain is under better control. On Levaquin for pseudomonas UTI. Hemoglobin dropped today - transfuse 2U PRBCs. <Ingrid Workman - 01/09/19 20:08>
[2019-01-09] MEDS: XTANDI 160 MG PO SCH (09:29)
[2019-01-09] MEDS: Lactobacillus Acidophilus/L. Spores Tablet PO SCH ×2 (09:29→22:49)
[2019-01-09] MEDS: Senna/Docusate Sodium 8.6/50 MG Tablet PO SCH ×2 (09:34→22:49)
[2019-01-09] MEDS: Metoprolol Tartrate 25 MG Tablet PO SCH ×2 (09:37→22:50)
--- NOTE | 2019-01-09 11:19 | P.DCO ---
- Diagnosis (1) Prostate cancer metastatic to bone Status: Acute (2) Gross hematuria Status: Acute - Home Health Nursing Order: Medical education, Kevin catheter maintenance Instructions: Patient with metastatic prostate cancer and chronic kevin will need assistance in flushing and maintaining. Will follow up with [facility] urologist. - Case Management Consult Case Management Consult-Home Health: Yes - Certification I have seen patient Fuentes Rutherford on 01/09/19. My clinical findings support the need for the requested home health care services because: Limited ability to care for self I certify that my clinical findings support that this patient is homebound because: Patient requires kevin catheter management Post-op weakness Attestation/Additional Detail: Patient does not have problem ambulating.
[2019-01-09] MEDS ORDERED: Sodium Chlor 0.9% Inj 250 ML IV.SIG SCH (13:00)
[2019-01-09] MEDS: Morphine Inj 4 MG/ML Vial IV.PUSH PRN (13:12)
--- NOTE | 2019-01-09 19:50 | P.PNURO ---
Subjective Patient symptoms today: Called by nurseJenelle. 16 Fr. Kevin catheter not draining, clots. 20 Fr. 3-way catheter ordered. Objective Vital Signs: Vital Signs 01/08/19 19:55 01/08/19 20:00 01/09/19 00:00 Temperature 97.8 F Pulse Rate 113 H 114 H 114 H Respiratory Rate 17 Blood Pressure 142/63 H Pulse Oximetry 98 01/09/19 00:11 01/09/19 03:50 01/09/19 04:00 Temperature 97.8 F 97.4 F L Pulse Rate 113 H 105 H 102 H Respiratory Rate 17 17 Blood Pressure 132/70 112/58 L Pulse Oximetry 97 97 01/09/19 08:00 01/09/19 12:00 01/09/19 16:00 Temperature 97.6 F 97.7 F 97.9 F Pulse Rate 97 H 100 H 105 H Respiratory Rate 18 18 18 Blood Pressure 109/55 L 126/66 132/71 Pulse Oximetry 97 97 97 01/09/19 18:04 01/09/19 18:29 Temperature 97.9 F 98.2 F Pulse Rate 105 H 102 H Respiratory Rate 18 12 Blood Pressure 132/71 114/72 Pulse Oximetry 97 93 L Intake & Output 01/09/19 01/09/19 01/10/19 06:59 18:59 06:59 Intake Total 1120 / 1120 900 / 900 Output Total 900 / 900 100 / 100 Balance 220 / 220 800 / 800 Weight 71.9 kg Intake: IV 1000 / 1000 900 / 900 NS Inj 1,000 ML @ 100 mls/hr IV 1000 / 1000 900 / 900 .CONT .Q10H [facility] Rx#:[id number] Oral 120 / 120 0 / 0 Intake (Blood Product) Amt 0 / 0 Rbc As-3 Leukoreduced Unit 0 / 0 [id number] Output: Urine 600 / 600 100 / 100 Urine Amount (Catheter) 300 / 300 Indwelling Urethral Catheter 300 / 300 Other: # Bowel Movements 0 0 Result Diagrams: 01/09/19 06:20 01/09/19 06:20 Medications and IVs: Active Medications Generic Name Dose Route Start Last Admin Trade Name Freq PRN Reason Stop Dose Admin Al Hydroxide/Mg Hydroxide 30 ml 01/06/19 15:08 Milk Of Magnesia Liq PO Q12H PRN Mild Constipation Bisacodyl 10 mg 01/06/19 15:08 Dulcolax Supp RECTAL DAILY PRN SEVERE CONSITIPATION Cyanocobalamin 1,000 mcg 01/07/19 09:00 01/09/19 09:28 Vitamin B12 PO 1,000 mcg DAILY [facility] Administration Levofloxacin/Dextrose 150 mls @ 100 mls/hr 01/10/19 17:00 Levaquin 750 Mg Premix Inj IV.SIG Q48H [facility] Sodium Chloride 250 mls @ 15 mls/hr 01/09/19 13:00 Ns Inj IV.SIG 01/10/19 05:39 ONCE [facility] Lactobacillus Acidophilus 2 tab 01/07/19 09:00 01/09/19 09:29 Lactinex PO 2 tab BID [facility] Administration Lactulose 30 ml 01/06/19 15:08 Lactulose Liq PO DAILY PRN SEVERE CONSITIPATION Metoprolol Tartrate 12.5 mg 01/07/19 09:00 01/09/19 09:37 Lopressor PO 12.5 mg BID [facility] Administration Mirtazapine 15 mg 01/09/19 21:00 Remeron PO HS [facility] Morphine Sulfate 3 mg 01/08/19 10:39 01/09/19 13:12 Morphine Inj IV.PUSH 3 mg Q3H [facility] Administration BREAKTHROUGH PAIN Naloxone HCl 0.4 mg 01/06/19 15:08 Narcan Inj IV.PUSH UNSCH PRN SEE LABEL COMMENTS Ondansetron HCl 4 mg 01/06/19 15:08 01/09/19 13:11 Zofran Inj IV.PUSH 4 mg Q6H PRN Administration NAUSEA OR VOMITING Oxybutynin Chloride 5 mg 01/06/19 18:00 01/09/19 18:23 Ditropan PO 5 mg TID [facility] Administration Oxycodone/Acetaminophen 1 tab 01/08/19 11:00 01/09/19 18:23 Percocet 10/325 Mg PO 1 tab Q6H [facility] Administration Pantoprazole Sodium 40 mg 01/07/19 09:00 01/09/19 09:28 Protonix PO 40 mg DAILY [facility] Administration Pt Own Xtandi 160 Mg 0 each 01/07/19 09:00 01/09/19 09:29 PO Not Given DAILY [facility] Phenazopyridine HCl 100 mg 01/08/19 16:13 Pyridium PO Q8H PRN dysuria Pravastatin Sodium 40 mg 01/07/19 21:00 01/08/19 22:31 Pravachol PO 40 mg HS [facility] Administration Senna/Docusate Sodium 1 tab 01/06/19 21:00 01/09/19 09:34 Nannette-Colace PO 1 tab BID [facility] Administration Sennosides 17.2 mg 01/06/19 15:08 Senokot PO Q12H PRN Moderate Constipation Sodium Chloride 2 ml 01/06/19 21:00 01/09/19 09:29 Ns Flush IV.FLUSH 2 ml BID [facility] Administration Sodium Chloride 2 ml 01/06/19 15:08 Ns Flush IV.FLUSH PRN PRN FLUSH AFTER USING IV ACCESS Tamsulosin HCl 0.4 mg 01/07/19 18:00 01/09/19 18:23 Flomax PO 0.4 mg QPM [facility] Administration Objective Remarks: Many clots irrigated by nurse Almanzar via 20 Fr. kevin catheter. Irrigation finally no clots but bright pink return. Pt. receiving blood transfusion now. Assessment and Plan - Assessment (1) Gross hematuria Code(s): R31.0 - Gross hematuria Status: Acute (2) Prostate cancer Code(s): C61 - Malignant neoplasm of prostate Status: Acute (3) UTI (urinary tract infection) Code(s): N39.0 - Urinary tract infection, site not specified Status: Acute - Plan Urologic impression: 1. Metastatic prostate cancer with mild right hydronephrosis likely related to disease progression 2. Gross hematuria likely exacerbated by the presence of a UTI 3. Urinary tract infection Recommendations: 1. Agree with present management of urinary tract infection 2. Maintain Kevin catheter to gravity drainage and discharge patient home with Kevin even after the urine clears. 3. Patient to follow-up with his established oncologist over at the [place] after hospital discharge 4. Patient will likely require cystoscopic evaluation sometime in the near future and this can be performed by urology over at the [place] 01/09: Bladder bleeding, many clots, now removed, but still bleeding slowly. CBI started via 20 Fr. kevin catheter. Will order NPO after MN in case needs TUR cautery of bladder bleeding tomorrow by Dr. Barnes. HGB low, receiving transfusion now. Discussed Condition With: Patient, nurse.
[2019-01-09] MEDS: Mirtazapine 15 MG Tablet PO SCH (22:49)
[2019-01-10] MEDS: Morphine Inj 4 MG/ML Vial IV.PUSH PRN ×2 (02:22→08:33)
[2019-01-10 03:15] LABS: Hematocrit 35.7 % (39.0-51.0); Hemoglobin 12.3 gm/dL (13.0-17.0)
[2019-01-10] MEDS: oxyCODONE/Acetaminophen 10/325 Tablet PO SCH ×4 (04:45→22:24)
--- NOTE | 2019-01-10 08:24 | P.PNFP ---
Subjective Interval history: Patient reported vomiting x3 last night. Hb 7.5, received 2u of pRBC with Hb increasing to 12.5. Examined while laying in bed, reported vomiting x2, fatigue, dizziness, malaise , and weakness. Patient reports improved abdominal/ bladder pain, much better than when he arrived in the hospital initially. Denies BM's for more than 4d. <Prerna Jesus - 01/10/19 11:54> Results - Labs Result diagrams: 01/10/19 11:56 01/10/19 07:43 <Ingrid Workman - 01/10/19 21:26> Abnormal lab results 01/09/19 01/10/19 01/10/19 Range/Units 15:02 03:06 07:43 RBC 4.08 L (4.50-5.90) mil/mm3 Hgb 12.3 L D 12.6 L (13.0-17.0) gm/dL Hct 35.7 L 36.4 L (39.0-51.0) % Neut % (Auto) 76.5 H (16.0-70.0) % Neut # (Auto) 8.0 H (1.8-7.7) th/mm3 Chloride (98-107) meq/L Carbon Dioxide (21.0-32.0) meq/L BUN (7-18) mg/dL Creatinine (0.60-1.30) mg/dL Estimated GFR (>89) mL/min Calcium (8.5-10.1) mg/dL Urine Protein (Neg-Trace) mg/dL Urine Occult Blood (Negative) Ur Leukocyte Esterase (Negative) Urine RBC (0-3) /hpf Urine WBC (0-5) /hpf Urine WBC Clumps (None) Urine Bacteria (None) /hpf MTS Gel Crossmatch See Detail 01/10/19 01/10/19 01/10/19 Range/Units 07:43 11:56 17:30 RBC (4.50-5.90) mil/mm3 Hgb 12.5 L (13.0-17.0) gm/dL Hct 36.9 L (39.0-51.0) % Neut % (Auto) (16.0-70.0) % Neut # (Auto) (1.8-7.7) th/mm3 Chloride 112 H (98-107) meq/L Carbon Dioxide 19.5 L (21.0-32.0) meq/L BUN 35 H (7-18) mg/dL Creatinine 1.47 H (0.60-1.30) mg/dL Estimated GFR 46 L (>89) mL/min Calcium 8.1 L D (8.5-10.1) mg/dL Urine Protein 30 H (Neg-Trace) mg/dL Urine Occult Blood Large H (Negative) Ur Leukocyte Esterase Small H (Negative) Urine RBC 62 H (0-3) /hpf Urine WBC 39 H (0-5) /hpf Urine WBC Clumps Rare H (None) Urine Bacteria Occasional H (None) /hpf MTS Gel Crossmatch Short CBC 01/10/19 01/10/19 01/10/19 Range/Units 03:06 07:43 11:56 WBC 10.5 (4.0-11.0) th/mm3 Hgb 12.3 L D 12.6 L 12.5 L (13.0-17.0) gm/dL Hct 35.7 L 36.4 L 36.9 L (39.0-51.0) % Plt Count 310 (150-450) th/mm3 BMP 01/10/19 07:43 Sodium 141 Potassium 4.1 Chloride 112 H Carbon Dioxide 19.5 L BUN 35 H Creatinine 1.47 H Calcium 8.1 L D Urine 01/10/19 Range/Units 17:30 Urine Color Yellow (Yellw/Straw) Urine Clarity Clear (Clear) Urine pH 5.0 (5.0-8.5) Ur Specific [place] 1.008 (1.002-1.035) Urine Protein 30 H (Neg-Trace) mg/dL Urine Glucose (UA) Negative (Negative) mg/dL <Ingrid Workman - 01/10/19 21:26> Abnormal lab results 01/09/19 01/09/19 01/10/19 Range/Units 06:20 15:02 03:06 Hgb 12.3 L D (13.0-17.0) gm/dL Hct 35.7 L (39.0-51.0) % Chloride 116 H (98-107) meq/L Carbon Dioxide 17.1 L (21.0-32.0) meq/L BUN 40 H (7-18) mg/dL Creatinine 2.08 H (0.60-1.30) mg/dL Estimated GFR 31 L (>89) mL/min Calcium 7.1 L* (8.5-10.1) mg/dL AST 72 H (15-37) U/L Alkaline Phosphatase 142 H (45-117) U/L Total Protein 5.2 L (6.4-8.2) g/dL Albumin 1.8 L (3.4-5.0) g/dL MTS Gel Crossmatch See Detail Short CBC 01/10/19 Range/Units 03:06 Hgb 12.3 L D (13.0-17.0) gm/dL Hct 35.7 L (39.0-51.0) % BMP 01/09/19 06:20 Sodium 142 Potassium 4.6 Chloride 116 H Carbon Dioxide 17.1 L BUN 40 H Creatinine 2.08 H Calcium 7.1 L* Liver Function 01/09/19 Range/Units 06:20 Total Bilirubin 0.3 (0.2-1.0) mg/dL AST 72 H (15-37) U/L ALT 78 (12-78) U/L Alkaline Phosphatase 142 H (45-117) U/L Albumin 1.8 L (3.4-5.0) g/dL <Prerna Jesus - 01/10/19 08:24> Physical Exam Vital signs: Vital Signs 01/09/19 23:19 01/09/19 23:34 01/10/19 00:00 Temperature 97.6 F Pulse Rate 107 H 131 H Respiratory Rate 4 L 18 Blood Pressure 130/82 Pulse Oximetry 95 01/10/19 00:04 01/10/19 02:17 01/10/19 04:00 Temperature 97.5 F L 97.9 F 97.6 F Pulse Rate 105 H 100 H 111 H Respiratory Rate 18 20 18 Blood Pressure 128/79 119/78 121/84 Pulse Oximetry 96 97 98 01/10/19 08:00 01/10/19 08:20 01/10/19 12:15 Temperature 98.0 F 97.5 F L Pulse Rate 99 H 99 H 104 H Respiratory Rate 17 18 17 Blood Pressure 167/77 H 142/78 H Pulse Oximetry 98 97 01/10/19 12:30 01/10/19 16:00 Temperature 97.7 F Pulse Rate 93 H 98 H Respiratory Rate 17 Blood Pressure 141/72 H Pulse Oximetry 95 Intake & Output 01/10/19 01/10/19 01/11/19 06:59 18:59 06:59 Intake Total 720 / 720 630 / 630 Output Total 61605 / 97091 4050 / 4050 Balance -9780 / -9780 -3420 / -3420 Intake: IV 200 / 200 150 / 150 Levaquin 750 mg Premix Inj 150 150 / 150 ML @ 100 mls/hr IV.SIG Q48H GEORGE Rx#:[id number] NS Inj 250 ML @ 15 mls/hr IV. 200 / 200 SIG ONCE GEORGE Rx#:[id number] Oral 520 / 520 480 / 480 Intake (Blood Product) Amt 0 / 0 Rbc As-3 Leukoreduced Unit 0 / 0 [id number] Rbc As-3 Leukoreduced Unit 0 / 0 [id number] Output: Urine 4050 / 4050 Urine Amount (Catheter) 37241 / 85211 Indwelling Urethral Catheter 33076 / 58610 Other: Bladder Irrigation Fluid - Amount Instilled Indwelling Urethral Catheter 9,000 Date of Last Bowel Movement 01/04/19 # Bowel Movements 0 0 # Emeses 5 <VeyIngrid - 01/10/19 21:26> Vital Signs 01/09/19 12:00 01/09/19 16:00 01/09/19 18:04 Temperature 97.7 F 97.9 F 97.9 F Pulse Rate 100 H 100 H 105 H Respiratory Rate 18 18 18 Blood Pressure 126/66 132/71 132/71 Pulse Oximetry 97 97 97 01/09/19 18:29 01/09/19 19:21 01/09/19 20:00 Temperature 98.2 F 97.9 F Pulse Rate 102 H 107 H 103 H Respiratory Rate 12 17 Blood Pressure 114/72 115/81 Pulse Oximetry 93 L 97 01/09/19 23:19 01/09/19 23:34 01/10/19 00:00 Temperature 97.6 F Pulse Rate 107 H 131 H Respiratory Rate 4 L 18 Blood Pressure 130/82 Pulse Oximetry 95 01/10/19 00:04 01/10/19 02:17 01/10/19 04:00 Temperature 97.5 F L 97.9 F 97.6 F Pulse Rate 105 H 100 H 111 H Respiratory Rate 18 20 18 Blood Pressure 128/79 119/78 121/84 Pulse Oximetry 96 97 98 Intake & Output 01/09/19 01/10/19 01/10/19 18:59 06:59 18:59 Intake Total 900 / 900 720 / 720 Output Total 100 / 100 97744 / 81069 Balance 800 / 800 -9780 / -9780 Intake: IV 900 / 900 200 / 200 NS Inj 1,000 ML @ 100 mls/hr IV 900 / 900 .CONT .Q10H GEORGE Rx#:[id number] NS Inj 250 ML @ 15 mls/hr IV. 200 / 200 SIG ONCE GEORGE Rx#:[id number] Oral 0 / 0 520 / 520 Intake (Blood Product) Amt 0 / 0 0 / 0 Rbc As-3 Leukoreduced Unit 0 / 0 0 / 0 [id number] Rbc As-3 Leukoreduced Unit 0 / 0 [id number] Output: Urine 100 / 100 Urine Amount (Catheter) 55526 / 34224 Indwelling Urethral Catheter 84971 / 28361 Other: Bladder Irrigation Fluid - Amount Instilled Indwelling Urethral Catheter 9,000 # Bowel Movements 0 0 # Emeses 5 <Prerna Jesus 01/10/19 08:24> Narrative: GENERAL: Elderly pale-appearing male lying comfortably in bed in no acute distress. SKIN: Warm and dry. No rash. EYES: No scleral icterus. No injection or drainage. PERRLA. EOMI. CARDIOVASCULAR: Regular rate and rhythm without obvious murmurs, gallops, or rubs. RESPIRATORY: Breath sounds equal bilaterally. No accessory muscle use. CTAB. GASTROINTESTINAL: Abdomen soft, mildly distended, nontender abdomen with normoactive bowel sounds. GENITOURINARY: Galvez catheter in place draining light yellow fluid. MUSCULOSKELETAL: No cyanosis or edema. Strength grossly WNL. non-tender calves BL. NEURO/PSYCH: Afocal. Awake, alert, and oriented x3. <Prerna Jesus 01/10/19 11:54> - Urinary Catheter Management Indwelling Urethral Catheter Cath placed during this visit: no <Ingrid Workman 01/10/19 21:26> yes, but has since been removed by the nurse <Prerna Jesus 16:39> Reason for continuing: Acute urinary retention <Prerna Jesus 01/10/19 08:24> Insertion date: 01/09/19 <Ng,Prerna - 01/10/19 08:24> Insertion time: 17:35 <Ng,Prerna - 01/10/19 08:24> Removal date: 01/09/19 <Ng,Prerna 01/10/19 08:24> Removal time: 17:30 <Ng,Prerna - 01/10/19 08:24> Assessment and Plan - Assessment (1) Acute hemorrhagic cystitis Code(s): N30.01 - Acute cystitis with hematuria Status: Acute Plan: Hemoglobin stable at 12.5 today, from 7.5 after transfusion of 2 units of packed red blood cells Currently on oxybutynin 5 mg p.o. 3 times daily Pain management consulted, on morphine and Percocet for pain control Currently on Pyridium (2) Prostate cancer metastatic to bone Code(s): C61 - Malignant neoplasm of prostate; C79.51 - Secondary malignant neoplasm of bone Status: Acute (3) Nutrition, metabolism, and development symptoms Code(s): R63.8 - Other symptoms and signs concerning food and fluid intake Status: Acute Plan: NS IVF 100 mls per hour Replete electrolytes as needed Renal diet with Ensure Added lactulose (4) Hypertension Code(s): I10 - Essential (primary) hypertension Status: Chronic Plan: today Continue metoprolol 12.5 mg p.o. twice a day Continue to monitor blood pressure readings (5) Hyperlipidemia Code(s): E78.5 - Hyperlipidemia, unspecified Status: Acute Plan: Currently on pravastatin 40 mg p.o. every day (6) Sepsis Code(s): A41.9 - Sepsis, unspecified organism Status: Acute Plan: Blood cultures negative times 3 days Urine culture positive for Pseudomonas, currently on Levaquin 750 mg, every 48 hours. Infectious disease is following Creatinine improved today from 2.08 to 1.47 Continued nausea and vomiting, currently on Zofran 4 mg, added Reglan 5 mg one- time dose (7) Gross hematuria Code(s): R31.0 - Gross hematuria Status: Acute Plan: H&H stable at this time, hemoglobin 12.5 We will follow-up with urology at the [facility] after discharge (8) Prostate cancer Code(s): C61 - Malignant neoplasm of prostate Status: Acute <Ng,Prerna - 01/10/19 16:39> (1) Gross hematuria Code(s): R31.0 - Gross hematuria Status: Acute (2) Prostate cancer Code(s): C61 - Malignant neoplasm of prostate Status: Acute <Ingrid Workman - 01/10/19 21:26> - Attending Attestation Patient seen and examined, discussed with medical student and resident team. I agree with assessment and management as documented and discussed with me. I personally performed and verify components of the note as documented. Pt reports fatigue and nausea. He has been lying in bed the majority of the hospitalization. He has not had a BM in 3 days; is passing flatus. +BS on exam. Galvez draining clear yellow urine. Provide suppository for constipation. Continue antibiotis. Renal function improved to baseline. <Ingrid Workman - 01/10/19 21:26>
[2019-01-10 08:25] LABS: Baso # (Auto) 0.1 th/mm3 (0.0-0.2); Baso % (Auto) 0.7 % (0.0-2.0); Eos # (Auto) 0.3 th/mm3 (0.0-0.4); Eos % (Auto) 2.8 % (0.0-4.0); Hematocrit 36.4 % (39.0-51.0); Hemoglobin 12.6 gm/dL (13.0-17.0); Lymph # (Auto) 1.3 th/mm3 (1.0-4.8); Mean Corpuscular HGB Conc 34.5 % (32.0-36.0); Mean Corpuscular Hemoglobin 30.8 pg (27.0-34.0); Mean Corpuscular Volume 89.2 fL (80.0-100.0); Mean Platelet Volume 7.5 fL (7.0-11.0); Mono # (Auto) 0.8 th/mm3 (0.0-0.9); Neut % (Auto) 76.5 % (16.0-70.0); Platelet Count 310 th/mm3 (150-450); Red Blood Count 4.08 mil/mm3 (4.50-5.90); Red Cell Distribution Width 15.3 % (11.6-17.2); White Blood Count 10.5 th/mm3 (4.0-11.0)
[2019-01-10 08:35] LABS: INR 1.1 Ratio; Prothrombin Time 11.1 sec (9.8-11.6)
[2019-01-10] MEDS: Senna/Docusate Sodium 8.6/50 MG Tablet PO SCH ×2 (08:58→21:33)
[2019-01-10] MEDS: XTANDI 160 MG PO SCH (08:58)
[2019-01-10] MEDS: Lactobacillus Acidophilus/L. Spores Tablet PO SCH ×2 (08:58→21:34)
[2019-01-10] MEDS: Metoprolol Tartrate 25 MG Tablet PO SCH ×2 (08:58→21:35)
[2019-01-10 09:08] LABS: Calcium 8.1 mg/dL (8.5-10.1); Carbon Dioxide 19.5 meq/L (21.0-32.0); Potassium 4.1 meq/L (3.5-5.1)
--- NOTE | 2019-01-10 09:36 | P.PNURO ---
Subjective Patient symptoms today: Reports hematuria yesterday which is now resolved. Stated that nurse had to irrigate out a small clot earlier this morning. Objective Vital Signs: Vital Signs 01/09/19 12:00 01/09/19 16:00 01/09/19 18:04 Temperature 97.7 F 97.9 F 97.9 F Pulse Rate 100 H 100 H 105 H Respiratory Rate 18 18 18 Blood Pressure 126/66 132/71 132/71 Pulse Oximetry 97 97 97 01/09/19 18:29 01/09/19 19:21 01/09/19 20:00 Temperature 98.2 F 97.9 F Pulse Rate 102 H 107 H 103 H Respiratory Rate 12 17 Blood Pressure 114/72 115/81 Pulse Oximetry 93 L 97 01/09/19 23:19 01/09/19 23:34 01/10/19 00:00 Temperature 97.6 F Pulse Rate 107 H 131 H Respiratory Rate 4 L 18 Blood Pressure 130/82 Pulse Oximetry 95 01/10/19 00:04 01/10/19 02:17 01/10/19 04:00 Temperature 97.5 F L 97.9 F 97.6 F Pulse Rate 105 H 100 H 111 H Respiratory Rate 18 20 18 Blood Pressure 128/79 119/78 121/84 Pulse Oximetry 96 97 98 Intake & Output 01/09/19 01/10/19 01/10/19 18:59 06:59 18:59 Intake Total 900 / 900 720 / 720 Output Total 100 / 100 33488 / 06105 Balance 800 / 800 -9780 / -9780 Intake: IV 900 / 900 200 / 200 NS Inj 1,000 ML @ 100 mls/hr IV 900 / 900 .CONT .Q10H GEORGE Rx#:[id number] NS Inj 250 ML @ 15 mls/hr IV. 200 / 200 SIG ONCE GEORGE Rx#:[id number] Oral 0 / 0 520 / 520 Intake (Blood Product) Amt 0 / 0 0 / 0 Rbc As-3 Leukoreduced Unit 0 / 0 0 / 0 [id number] Rbc As-3 Leukoreduced Unit 0 / 0 [id number] Output: Urine 100 / 100 Urine Amount (Catheter) 03809 / 22564 Indwelling Urethral Catheter 86295 / 14991 Other: Bladder Irrigation Fluid - Amount Instilled Indwelling Urethral Catheter 9,000 # Bowel Movements 0 0 # Emeses 5 Result Diagrams: 01/10/19 07:43 01/10/19 07:43 Medications and IVs: Active Medications Generic Name Dose Route Start Last Admin Trade Name Freq PRN Reason Stop Dose Admin Al Hydroxide/Mg Hydroxide 30 ml 01/06/19 15:08 Milk Of Magnesia Liq PO Q12H PRN Mild Constipation Bisacodyl 10 mg 01/06/19 15:08 Dulcolax Supp RECTAL DAILY PRN SEVERE CONSITIPATION Cyanocobalamin 1,000 mcg 01/07/19 09:00 01/10/19 08:58 Vitamin B12 PO Not Given DAILY [facility] Levofloxacin/Dextrose 150 mls @ 100 mls/hr 01/10/19 17:00 Levaquin 750 Mg Premix Inj IV.SIG Q48H GEORGE Lactobacillus Acidophilus 2 tab 01/07/19 09:00 01/10/19 08:58 Lactinex PO Not Given BID [facility] Lactulose 30 ml 01/06/19 15:08 Lactulose Liq PO DAILY PRN SEVERE CONSITIPATION Metoclopramide HCl 5 mg 01/10/19 08:20 Reglan Inj IM Q8H PRN nausea/vomiting Protocol Metoprolol Tartrate 12.5 mg 01/07/19 09:00 01/10/19 08:58 Lopressor PO Not Given BID [facility] Mirtazapine 15 mg 01/09/19 21:00 01/09/19 22:49 Remeron PO 15 mg HS GEORGE Administration Morphine Sulfate 3 mg 01/08/19 10:39 01/10/19 08:33 Morphine Inj IV.PUSH 3 mg Q3H PRN Administration BREAKTHROUGH PAIN Naloxone HCl 0.4 mg 01/06/19 15:08 Narcan Inj IV.PUSH UNSCH PRN SEE LABEL COMMENTS Ondansetron HCl 4 mg 01/06/19 15:08 01/10/19 04:44 Zofran Inj IV.PUSH 4 mg Q6H PRN Administration NAUSEA OR VOMITING Oxybutynin Chloride 5 mg 01/06/19 18:00 01/10/19 08:58 Ditropan PO Not Given TID [facility] Oxycodone/Acetaminophen 1 tab 01/08/19 11:00 01/10/19 04:45 Percocet 10/325 Mg PO 1 tab Q6H GEORGE Administration Pantoprazole Sodium 40 mg 01/07/19 09:00 01/10/19 08:58 Protonix PO Not Given DAILY GEORGE Pt Own Xtandi 160 Mg 0 each 01/07/19 09:00 01/10/19 08:58 PO Not Given DAILY GEORGE Phenazopyridine HCl 100 mg 01/08/19 16:13 01/09/19 22:49 Pyridium PO 100 mg Q8H PRN Administration dysuria Pravastatin Sodium 40 mg 01/07/19 21:00 01/09/19 22:49 Pravachol PO 40 mg HS GEORGE Administration Senna/Docusate Sodium 1 tab 01/06/19 21:00 01/10/19 08:58 Nannette-Colace PO Not Given BID GEORGE Sennosides 17.2 mg 01/06/19 15:08 Senokot PO Q12H PRN Moderate Constipation Sodium Chloride 2 ml 01/06/19 21:00 01/10/19 08:58 Ns Flush IV.FLUSH 2 ml BID GEORGE Administration Sodium Chloride 2 ml 01/06/19 15:08 Ns Flush IV.FLUSH PRN PRN FLUSH AFTER USING IV ACCESS Tamsulosin HCl 0.4 mg 01/07/19 18:00 01/09/19 18:23 Flomax PO 0.4 mg QPM GEORGE Administration Objective Remarks: Kevin catheter draining clear yellow urine without clots. Bladder not distended. Assessment and Plan - Assessment (1) Gross hematuria Code(s): R31.0 - Gross hematuria Status: Acute (2) Prostate cancer Code(s): C61 - Malignant neoplasm of prostate Status: Acute (3) UTI (urinary tract infection) Code(s): N39.0 - Urinary tract infection, site not specified Status: Acute - Plan Urologic impression: 1. Metastatic prostate cancer with mild right hydronephrosis likely related to disease progression 2. Gross hematuria likely exacerbated by the presence of a UTI 3. Urinary tract infection Recommendations: 1. Agree with present management of urinary tract infection 2. Maintain Kevin catheter to gravity drainage and discharge patient home with Kevin even after the urine clears. 3. Patient to follow-up with his established oncologist over at the [facility] after hospital discharge 4. Patient will likely require cystoscopic evaluation sometime in the near future and this can be performed by urology over at the [facility] 01/09: Bladder bleeding, many clots, now removed, but still bleeding slowly. CBI started via 20 Fr. kevin catheter. Will order NPO after MN in case needs TUR cautery of bladder bleeding tomorrow by Dr. Barnes. HGB low, receiving transfusion now. 01/10: Hematuria now resolved Continue with indwelling Kevin catheter to gravity drainage Resume cardiac diet Further recommendations as outlined above
[2019-01-10] MEDS ORDERED: Bisacodyl 10 MG Supp RECTAL ONE (10:22)
--- NOTE | 2019-01-10 10:39 | P.DCO ---
- Diagnosis (1) Gross hematuria Status: Acute (2) Prostate cancer Status: Acute - Physical Therapy Order: Evaluate and treat Instructions: Patient has prostate cancer with mets requiring constant kevin. Was previously in rehab for the 3 weeks but bed bound for the majority of the last week and will require home PT. - Case Management Consult Case Management Consult-Home Health: Yes - Certification I have seen patient Fuentes Rutherford on 01/10/19. My clinical findings support the need for the requested home health care services because: Deconditioned with increased weakness I certify that my clinical findings support that this patient is homebound because: Post-op weakness
[2019-01-10 12:41] LABS: Hematocrit 36.9 % (39.0-51.0); Hemoglobin 12.5 gm/dL (13.0-17.0)
--- NOTE | 2019-01-10 13:26 | P.PNID ---
Subjective Remarks: Patient is an 83-year-old male, with known history of prostate cancer, recently diagnosed to have recurrence, and metastatic disease, presented to the hospital complaining of severe suprapubic abdominal pain. Patient apparently has had problem with urinary retention, and he has been requiring Galvez catheter for this problem since I believe September 2018. In October, he was hospitalized at the [facility] in [facility] due to urinary retention. According to the patient while he was in there they tried straight catheter procedure for his problem, and patient stated he developed hematuria. He was switched back to Galvez catheter, and he was discharged to the [facility] rehab. Patient stated that his catheter was changed in the rehab once, but he could not remember the last time it was changed. 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 In the ED they did a bladder scan, and apparently the volume was about 30 mL. He had hematuria at that time, and urine culture was sent and he was sent back to the rehab facility. Apparently the pain medication prescribed to him was not working, so the patient was brought back to the hospital and has now been admitted. Patient currently is complaining of nausea and dry heaves. He is also complaining of significant pain in the suprapubic region. He has gross hematuria and he is urine bag. Patient has been febrile up to 102. CT of the abdomen and pelvis is showing evidence of right hydro-ureteric nephrosis , and there was also possibly a bladder calculi. The bladder is decompressed. Patient gives a history of penicillin allergy with itching. Infectious disease consultation has been requested to assist with antibiotic management. Notes reviewed Temps ok C/O constipation Urine clear UC with PSAE sensitive Creatinine improving No rash No diarrhea Antibiotics: Levaquin Lines: Lines ok Past Medical History: reviewed Allergies/Adverse Reactions: Allergies Penicillins Allergy (Verified 01/06/19 02:12) Itching Objective Vital Signs 01/09/19 16:00 01/09/19 18:04 01/09/19 18:29 Temperature 97.9 F 97.9 F 98.2 F Pulse Rate 100 H 105 H 102 H Respiratory Rate 18 18 12 Blood Pressure 132/71 132/71 114/72 Pulse Oximetry 97 97 93 L 01/09/19 19:21 01/09/19 20:00 01/09/19 23:19 Temperature 97.9 F Pulse Rate 107 H 103 H Respiratory Rate 17 4 L Blood Pressure 115/81 Pulse Oximetry 97 01/09/19 23:34 01/10/19 00:00 01/10/19 00:04 Temperature 97.6 F 97.5 F L Pulse Rate 107 H 131 H 105 H Respiratory Rate 18 18 Blood Pressure 130/82 128/79 Pulse Oximetry 95 96 01/10/19 02:17 01/10/19 04:00 01/10/19 08:00 Temperature 97.9 F 97.6 F 98.0 F Pulse Rate 100 H 111 H 99 H Respiratory Rate 20 18 17 Blood Pressure 119/78 121/84 167/77 H Pulse Oximetry 97 98 98 01/10/19 08:20 01/10/19 12:15 01/10/19 12:30 Temperature 97.5 F L Pulse Rate 99 H 104 H 93 H Respiratory Rate 18 17 Blood Pressure 142/78 H Pulse Oximetry 97 Intake & Output 01/09/19 01/10/19 01/10/19 18:59 06:59 18:59 Intake Total 900 / 900 720 / 720 Output Total 100 / 100 82636 / 47042 Balance 800 / 800 -9780 / -9780 Intake: IV 900 / 900 200 / 200 NS Inj 1,000 ML @ 100 mls/hr IV 900 / 900 .CONT .Q10H [facility] Rx#:[id number] NS Inj 250 ML @ 15 mls/hr IV. 200 / 200 SIG ONCE [facility] Rx#:[id number] Oral 0 / 0 520 / 520 Intake (Blood Product) Amt 0 / 0 0 / 0 Rbc As-3 Leukoreduced Unit 0 / 0 0 / 0 [id number] Rbc As-3 Leukoreduced Unit 0 / 0 [id number] Output: Urine 100 / 100 Urine Amount (Catheter) 06968 / 24096 Indwelling Urethral Catheter 89340 / 21677 Other: Bladder Irrigation Fluid - Amount Instilled Indwelling Urethral Catheter 9,000 Date of Last Bowel Movement 01/04/19 # Bowel Movements 0 0 # [place] 5 01/07/19 12:40 Blood - Peripheral Aerobic Blood Culture - Preliminary No growth in 3 days 01/07/19 12:40 Blood - Peripheral Anaerobic Blood Culture - Final QNS - See aerobic report. 01/07/19 12:35 Blood - Peripheral Aerobic Blood Culture - Preliminary No growth in 3 days 01/07/19 12:35 Blood - Peripheral Anaerobic Blood Culture - Final QNS - See aerobic report. 01/06/19 09:51 Blood - Peripheral Aerobic Blood Culture - Preliminary No growth in 3 days 01/06/19 09:51 Blood - Peripheral Anaerobic Blood Culture - Preliminary No growth in 3 days 01/06/19 23:26 Blood - Peripheral Aerobic Blood Culture - Preliminary No growth in 4 days 01/06/19 23:26 Blood - Peripheral Anaerobic Blood Culture - Preliminary No growth in 4 days 01/06/19 12:40 Catheterized Urine Urine Culture - Final Pseudomonas aeruginosa Lab - Hematology Results 01/08/19 01/09/19 01/10/19 19:14 06:20 03:06 WBC 9.1 RBC 2.39 L Hgb 8.9 L 7.5 L 12.3 L D Hct 26.1 L 22.6 L 35.7 L MCV 94.7 MCH 31.4 MCHC 33.2 RDW 15.5 Plt Count 330 MPV 7.6 Neut % (Auto) 81.1 H Lymph % (Auto) 9.8 [place] % (Auto) 7.4 Eos % (Auto) 1.0 Baso % (Auto) 0.7 Neut # (Auto) 7.4 Lymph # (Auto) 0.9 L [place] # (Auto) 0.7 Eos # (Auto) 0.1 Baso # (Auto) 0.1 WBC Differential . Differential Comment Auto diff final 01/10/19 01/10/19 07:43 11:56 WBC 10.5 RBC 4.08 L Hgb 12.6 L 12.5 L Hct 36.4 L 36.9 L MCV 89.2 D MCH 30.8 MCHC 34.5 RDW 15.3 Plt Count 310 MPV 7.5 Neut % (Auto) 76.5 H Lymph % (Auto) 12.0 [place] % (Auto) 8.0 Eos % (Auto) 2.8 Baso % (Auto) 0.7 Neut # (Auto) 8.0 H Lymph # (Auto) 1.3 [place] # (Auto) 0.8 Eos # (Auto) 0.3 Baso # (Auto) 0.1 WBC Differential . Differential Comment Auto diff final Lab - Chemistry Results 02/10/19 02/11/19 06:20 07:43 Sodium 142 141 Potassium 4.6 4.1 Chloride 116 H 112 H Carbon Dioxide 17.1 L 19.5 L Anion Gap 9 10 BUN 40 H 35 H Creatinine 2.08 H 1.47 H Estimated GFR 31 L 46 L Random Glucose 102 97 Calcium 7.1 L* 8.1 L D Calcium Adj for Albumin 8.9 Total Bilirubin 0.3 AST 72 H ALT 78 Alkaline Phosphatase 142 H Total Protein 5.2 L Albumin 1.8 L Imaging: ITS Impressions Abdomen/Pelvis CT 01/06/19 00:00 CONCLUSION: 1. Mild right-sided hydroureteronephrosis extending to the UV junction without radiopaque renal calculi. 2. Bladder is completely decompressed secondary to Galvez catheter with a 1 cm calcified density adjacent to the Galvez balloon in the bladder which may reflect a bladder calculus. 3. Air within the bladder likely due to catheterization. 4. Persistent diffuse sclerosis and expansion of the right ilium, acetabulum, coccyx and pubic rami with new focal sclerosis involving the posterior right L5 vertebral body and left ilium consistent with progressive metastatic disease in this patient with history of prostate CA. 5. Additional stable ancillary findings, as above. Liver Ultrasound 01/07/19 00:00 CONCLUSION: 1. Minimal increase in echogenicity of the liver without mass or hydronephrosis. 2. There is no ductal dilatation Physical Exam: GENERAL: awake and alert, not in respiratory distress. SKIN: Cool and dry. No generalized rash EYES: [place] conjunctiva. No petechia or hemorrhage. Pupils equal, round and reactive to light. Extraocular movements full and intact. No scleral icterus. No injection or drainage. EARS, NOSE AND THROAT: Mucous membranes pink and moist. No oral lesions noted. No exudate. No oral thrush. NECK: Trachea midline. Supple and not tender, no meningeal signs CARDIOVASCULAR: Regular rate and rhythm. No murmurs, rubs or gallops heard RESPIRATORY: Clear to auscultation. Breath sounds equal bilaterally. No rales , wheezing or rhonchi ABDOMEN: Distended abdomen, with mild diffuse tenderness. EXTREMITIES: No clubbing, cyanosis, or edema. No joint effusion, has good ROM. No calf tenderness. Well perfused and warm. : Galvez catheter in place, urine clear. NEUROLOGICAL: Non-focal. PSYCHIATRIC: calm and cooperative. LINE: No evidence of infection Assessment and Plan - Plan IMpression Possible sepsis due to UTI, better Acute Pyelonephritis, with gross hematuria, has hydroureteronephrosis on R PSAE infection UTI Hemorrhagic cystitis Hx prostate CA with bone mets Acute Renal insufficiency, improving Itching with PCN Recommendation Continue Levaquin IV as PSAE frederick sensitive. Monitor progress Repeat UA Got lactulose, may need fleets enema for his constipation
[2019-01-10 18:01] LABS: Bacteria,Urine Occasional /hpf; Bilirubin,Urine Negative (Negative); Clarity,Urine Clear (Clear); Color,Urine Yellow (Yellw/Straw); Glucose,Urine (UA) Negative (Negative); Leukocyte Esterase,Urine Small (Negative); Nitrite,Urine Negative (Negative); Specific Gravity,Urine 1.008 (1.002-1.035)
[2019-01-10] MEDS: Mirtazapine 15 MG Tablet PO SCH (21:33)
[2019-01-11] MEDS: oxyCODONE/Acetaminophen 10/325 Tablet PO SCH ×4 (04:31→23:40)
[2019-01-11] MEDS ORDERED: Mineral Oil Enema 118 ML Bottle RECTAL ONE (05:50)
[2019-01-11] MEDS: Metoprolol Tartrate 25 MG Tablet PO SCH ×3 (09:31→22:02)
[2019-01-11] MEDS: Senna/Docusate Sodium 8.6/50 MG Tablet PO SCH ×2 (09:32→21:40)
[2019-01-11] MEDS: Lactobacillus Acidophilus/L. Spores Tablet PO SCH ×3 (09:32→22:03)
[2019-01-11] MEDS: XTANDI 160 MG PO SCH (09:33)
--- NOTE | 2019-01-11 11:05 | P.PNFP ---
Subjective Interval history: REEDO Patient examined while laying in bed. Patient reports increased abdominal pressure and discomfort, although denies pain at this time. He believes that his stomach as gotten much more distended since last time and denies any BM's despite multiple suppositories and an enema this morning. Reports continued nausea and vomiting. Denies dizziness, SOB, chest pain, bladder pain. <Prerna Jesus - 01/11/19 11:20> Results - Labs Result diagrams: 01/11/19 10:51 01/11/19 10:51 <AlejabeenaIngrid - 01/11/19 20:50> Abnormal lab results 01/11/19 01/11/19 Range/Units 10:51 10:51 Neut % (Auto) 74.9 H (16.0-70.0) % [place] % (Auto) 8.9 H (0.0-8.0) % Chloride 108 H (98-107) meq/L BUN 30 H (7-18) mg/dL Estimated GFR 55 L (>89) mL/min Random Glucose 120 H (74-106) mg/dL Short CBC 01/11/19 Range/Units 10:51 WBC 9.8 (4.0-11.0) th/mm3 Hgb 13.7 (13.0-17.0) gm/dL Hct 40.0 (39.0-51.0) % Plt Count 327 (150-450) th/mm3 [facility] 01/11/19 10:51 Sodium 141 Potassium 4.1 Chloride 108 H Carbon Dioxide 23.5 BUN 30 H Creatinine 1.24 Calcium 8.7 <Ingrid Workman - 01/11/19 20:50> Abnormal lab results 01/10/19 01/10/19 Range/Units 11:56 17:30 Hgb 12.5 L (13.0-17.0) gm/dL Hct 36.9 L (39.0-51.0) % Urine Protein 30 H (Neg-Trace) mg/dL Urine Occult Blood Large H (Negative) Ur Leukocyte Esterase Small H (Negative) Urine RBC 62 H (0-3) /hpf Urine WBC 39 H (0-5) /hpf Urine WBC Clumps Rare H (None) Urine Bacteria Occasional H (None) /hpf Short CBC 01/10/19 Range/Units 11:56 Hgb 12.5 L (13.0-17.0) gm/dL Hct 36.9 L (39.0-51.0) % Urine 01/10/19 Range/Units 17:30 Urine Color Yellow (Yellw/Straw) Urine Clarity Clear (Clear) Urine pH 5.0 (5.0-8.5) Ur Specific [place] 1.008 (1.002-1.035) Urine Protein 30 H (Neg-Trace) mg/dL Urine Glucose (UA) Negative (Negative) mg/dL <Prerna Jesus - 01/11/19 11:05> - Imaging Impressions Abdomen X-Ray 01/11/19 00:00 CONCLUSION: Abnormal bowel gas pattern with multiple distended loops of small bowel, distended stomach, and no dilated loops of colon. Recommend follow-up films after placement of gastric tube. <Ingrid Workman - 01/11/19 20:50> Physical Exam Vital signs: Vital Signs 01/10/19 21:10 01/11/19 00:00 01/11/19 04:00 Temperature 97.1 F L 97.3 F L 97.9 F Pulse Rate 102 H 103 H 105 H Respiratory Rate 17 17 17 Blood Pressure 153/95 H 148/99 H 149/98 H Pulse Oximetry 97 98 96 01/11/19 08:00 01/11/19 08:20 01/11/19 12:00 Temperature 98.3 F 97.4 F L Pulse Rate 112 H 102 H 118 H Respiratory Rate 16 16 Blood Pressure 129/76 119/79 Pulse Oximetry 94 L 94 L 01/11/19 16:00 Temperature 97.2 F L Pulse Rate 117 H Respiratory Rate 16 Blood Pressure 117/80 Pulse Oximetry 95 Intake & Output 01/11/19 01/11/19 01/12/19 06:59 18:59 06:59 Intake Total 360 / 360 720 / 720 Output Total 9100 / 9100 Balance -8740 / -8740 720 / 720 Weight 71.9 kg Intake: Oral 360 / 360 720 / 720 Output: Urine 9100 / 9100 Other: Post Void Residual 2,775 Date of Last Bowel Movement 01/04/19 # Bowel Movements 2 <Ingrid Workman - 01/11/19 20:50> Vital Signs 01/10/19 12:15 01/10/19 12:30 01/10/19 16:00 Temperature 97.5 F L 97.7 F Pulse Rate 104 H 93 H 98 H Respiratory Rate 17 17 Blood Pressure 142/78 H 141/72 H Pulse Oximetry 97 95 01/10/19 20:00 01/10/19 21:10 01/11/19 00:00 Temperature 97.1 F L 97.3 F L Pulse Rate 100 H 102 H 103 H Respiratory Rate 17 17 Blood Pressure 153/95 H 148/99 H Pulse Oximetry 97 98 01/11/19 04:00 01/11/19 08:00 01/11/19 08:20 Temperature 97.9 F 98.3 F Pulse Rate 105 H 112 H 102 H Respiratory Rate 17 16 Blood Pressure 149/98 H 129/76 Pulse Oximetry 96 94 L Intake & Output 01/10/19 01/11/19 01/11/19 18:59 06:59 18:59 Intake Total 630 / 630 360 / 360 Output Total 4050 / 4050 9100 / 9100 Balance -3420 / -3420 -8740 / -8740 Weight 71.9 kg Intake: IV 150 / 150 Levaquin 750 mg Premix Inj 150 150 / 150 ML @ 100 mls/hr IV.SIG Q48H [facility] Rx#:[id number] Oral 480 / 480 360 / 360 Output: Urine 4050 / 4050 9100 / 9100 Other: Date of Last Bowel Movement 01/04/19 01/04/19 # Bowel Movements 0 <Prerna Jesus - 01/11/19 11:05> Narrative: GENERAL: Elderly pale-appearing male lying comfortably in bed in no acute distress. SKIN: Warm and dry. EYES: No scleral icterus. No injection or drainage. PERRLA. EOMI. CARDIOVASCULAR: Regular rate and rhythm without obvious murmurs, gallops, or rubs. RESPIRATORY: Breath sounds equal bilaterally. No accessory muscle use. CTAB. No wheezing or crackles GASTROINTESTINAL: Abdomen firm, moderately distended, mildly tender abdomen with hypoactive bowel sounds GENITOURINARY: Galvez catheter in place draining light yellow fluid. MUSCULOSKELETAL: No cyanosis or edema. Strength grossly WNL. non-tender calves BL. NEURO/PSYCH: Afocal. Awake, alert, and oriented x3. <Prerna Jesus - 01/11/19 11:20> - Urinary Catheter Management Indwelling Urethral Catheter Cath placed during this visit: no <Ingrid Workman - 01/11/19 20:50> yes, but has since been removed by the nurse <Prerna Jesus - 13:35> Reason for continuing: Gross Hematuria <Prerna Jesus - 01/11/19 11:05> Insertion date: 01/09/19 <Prerna Jesus - 01/11/19 11:05> Insertion time: 17:35 <Prerna Jesus 01/11/19 11:05> Removal date: 01/09/19 <Prerna Jesus 01/11/19 11:05> Removal time: 17:30 <Prerna Jesus - 01/11/19 11:05> Assessment and Plan - Assessment (1) Acute hemorrhagic cystitis Code(s): N30.01 - Acute cystitis with hematuria Status: Acute Plan: Hemoglobin continue to improve from 12.5 to 13.7. Transfused of 2 units of packed red blood cells Currently on oxybutynin 5 mg p.o. 3 times daily Pain management: on morphine and Percocet for pain control Currently on Pyridium (2) Nutrition, metabolism, and development symptoms Code(s): R63.8 - Other symptoms and signs concerning food and fluid intake Status: Acute Plan: NS IVF 100 mls per hour Replete electrolytes as needed Renal diet with Ensure Added lactulose, suppository, fleet enema for constipation Ordered KUB for continued absence of BM, will follow up with results. If normal , will advance bowel regimen with Golytely Consulted CM for possible home health vs PT at rehab due to deconditioning (3) Sepsis Code(s): A41.9 - Sepsis, unspecified organism Status: Acute Plan: Blood cultures negative times 4 days Urine culture positive for Pseudomonas, currently on Levaquin 750 mg, every 48 hours. Infectious disease recommends continuing IV antibiotic due to nausea and vomiting Creatinine continues to improve 2.08->1.47-> 1.24 Continued nausea and vomiting, currently on Zofran 4 mg, added Reglan prn (4) Hypertension Code(s): I10 - Essential (primary) hypertension Status: Chronic Plan: Continue metoprolol 12.5 mg p.o. 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 I agree with assessment and management as documented and discussed with me. I have personally performed interview/exam and verify documentation as accurate. Additional diagnosis: Abdominal distention: Check KUB to evaluate. Pt does report passing flatus. Further management pending KUB result. <Ingrid Workman - 01/11/19 20:50>
[2019-01-11 12:07] LABS: Baso % (Auto) 0.4 % (0.0-2.0); Eos # (Auto) 0.2 th/mm3 (0.0-0.4); Eos % (Auto) 1.6 % (0.0-4.0); Hemoglobin 13.7 gm/dL (13.0-17.0); Lymph # (Auto) 1.4 th/mm3 (1.0-4.8); Lymph % (Auto) 14.2 % (9.0-44.0); Mean Corpuscular HGB Conc 34.3 % (32.0-36.0); Mean Corpuscular Hemoglobin 30.4 pg (27.0-34.0); Mean Corpuscular Volume 88.8 fL (80.0-100.0); Mean Platelet Volume 7.6 fL (7.0-11.0); Mono # (Auto) 0.9 th/mm3 (0.0-0.9); Mono % (Auto) 8.9 % (0.0-8.0); Neut # (Auto) 7.3 th/mm3 (1.8-7.7); Neut % (Auto) 74.9 % (16.0-70.0); Platelet Count 327 th/mm3 (150-450); Red Cell Distribution Width 15.2 % (11.6-17.2); White Blood Count 9.8 th/mm3 (4.0-11.0)
--- NOTE | 2019-01-11 12:37 | P.PNID ---
Subjective Remarks: Patient is an 83-year-old male, with known history of prostate cancer, recently diagnosed to have recurrence, and metastatic disease, presented to the hospital complaining of severe suprapubic abdominal pain. Patient apparently has had problem with urinary retention, and he has been requiring Galvez catheter for this problem since I believe September 2018. In October, he was hospitalized at the [place] in [facility] due to urinary retention. According to the patient while he was in there they tried straight catheter procedure for his problem, and patient stated he developed hematuria. He was switched back to Galvez catheter, and he was discharged to the [facility] rehab. Patient stated that his catheter was changed in the rehab once, but he could not remember the last time it was changed. 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 In the ED they did a bladder scan, and apparently the volume was about 30 mL. He had hematuria at that time, and urine culture was sent and he was sent back to the rehab facility. Apparently the pain medication prescribed to him was not working, so the patient was brought back to the hospital and has now been admitted. Patient currently is complaining of nausea and dry heaves. He is also complaining of significant pain in the suprapubic region. He has gross hematuria and he is urine bag. Patient has been febrile up to 102. CT of the abdomen and pelvis is showing evidence of right hydro-ureteric nephrosis , and there was also possibly a bladder calculi. The bladder is decompressed. Patient gives a history of penicillin allergy with itching. Infectious disease consultation has been requested to assist with antibiotic management. Notes reviewed Temps ok C/O abdominal distension Still no BM Vomited yesterday - 5 recorded Urine clear, on CBI Repeat UA better UC with PSAE sensitive Creatinine improving No rash No diarrhea WBC normal Antibiotics: Levaquin Lines: Lines ok Past Medical History: reviewed Allergies/Adverse Reactions: Allergies Penicillins Allergy (Verified 01/06/19 02:12) Itching Objective Vital Signs 01/10/19 16:00 01/10/19 20:00 01/10/19 21:10 Temperature 97.7 F 97.1 F L Pulse Rate 98 H 100 H 102 H Respiratory Rate 17 17 Blood Pressure 141/72 H 153/95 H Pulse Oximetry 95 97 01/11/19 00:00 01/11/19 04:00 01/11/19 08:00 Temperature 97.3 F L 97.9 F 98.3 F Pulse Rate 103 H 105 H 112 H Respiratory Rate 17 17 16 Blood Pressure 148/99 H 149/98 H 129/76 Pulse Oximetry 98 96 94 L 01/11/19 08:20 Temperature Pulse Rate 102 H Respiratory Rate Blood Pressure Pulse Oximetry Intake & Output 01/10/19 01/11/19 01/11/19 18:59 06:59 18:59 Intake Total 630 / 630 360 / 360 Output Total 4050 / 4050 9100 / 9100 Balance -3420 / -3420 -8740 / -8740 Weight 71.9 kg Intake: IV 150 / 150 Levaquin 750 mg Premix Inj 150 150 / 150 ML @ 100 mls/hr IV.SIG Q48H [facility] Rx#:[id number] Oral 480 / 480 360 / 360 Output: Urine 4050 / 4050 9100 / 9100 Other: Date of Last Bowel Movement 01/04/19 01/04/19 # Bowel Movements 0 01/07/19 12:40 Blood - Peripheral Aerobic Blood Culture - Preliminary No growth in 4 days 01/07/19 12:40 Blood - Peripheral Anaerobic Blood Culture - Final QNS - See aerobic report. 01/07/19 12:35 Blood - Peripheral Aerobic Blood Culture - Preliminary No growth in 4 days 01/07/19 12:35 Blood - Peripheral Anaerobic Blood Culture - Final QNS - See aerobic report. 01/06/19 09:51 Blood - Peripheral Aerobic Blood Culture - Preliminary No growth in 4 days 01/06/19 09:51 Blood - Peripheral Anaerobic Blood Culture - Preliminary No growth in 4 days 01/06/19 23:26 Blood - Peripheral Aerobic Blood Culture - Final No growth in 5 days 01/06/19 23:26 Blood - Peripheral Anaerobic Blood Culture - Final No growth in 5 days 01/06/19 12:40 Catheterized Urine Urine Culture - Final Pseudomonas aeruginosa Lab - Hematology Results 01/10/19 01/10/19 01/10/19 03:06 07:43 11:56 WBC 10.5 RBC 4.08 L Hgb 12.3 L D 12.6 L 12.5 L Hct 35.7 L 36.4 L 36.9 L MCV 89.2 D MCH 30.8 MCHC 34.5 RDW 15.3 Plt Count 310 MPV 7.5 Neut % (Auto) 76.5 H Lymph % (Auto) 12.0 [place] % (Auto) 8.0 Eos % (Auto) 2.8 Baso % (Auto) 0.7 Neut # (Auto) 8.0 H Lymph # (Auto) 1.3 [place] # (Auto) 0.8 Eos # (Auto) 0.3 Baso # (Auto) 0.1 WBC Differential . Differential Comment Auto diff final 01/11/19 10:51 WBC 9.8 RBC 4.50 Hgb 13.7 Hct 40.0 MCV 88.8 MCH 30.4 MCHC 34.3 RDW 15.2 Plt Count 327 MPV 7.6 Neut % (Auto) 74.9 H Lymph % (Auto) 14.2 [place] % (Auto) 8.9 H Eos % (Auto) 1.6 Baso % (Auto) 0.4 Neut # (Auto) 7.3 Lymph # (Auto) 1.4 [place] # (Auto) 0.9 Eos # (Auto) 0.2 Baso # (Auto) 0.0 WBC Differential . Differential Comment Auto diff final Lab - Chemistry Results 01/10/19 07:43 Sodium 141 Potassium 4.1 Chloride 112 H Carbon Dioxide 19.5 L Anion Gap 10 BUN 35 H Creatinine 1.47 H Estimated GFR 46 L Random Glucose 97 Calcium 8.1 L D Imaging: ITS Impressions Abdomen/Pelvis CT 01/06/19 00:00 CONCLUSION: 1. Mild right-sided hydroureteronephrosis extending to the UV junction without radiopaque renal calculi. 2. Bladder is completely decompressed secondary to Galvez catheter with a 1 cm calcified density adjacent to the Galvez balloon in the bladder which may reflect a bladder calculus. 3. Air within the bladder likely due to catheterization. 4. Persistent diffuse sclerosis and expansion of the right ilium, acetabulum, coccyx and pubic rami with new focal sclerosis involving the posterior right L5 vertebral body and left ilium consistent with progressive metastatic disease in this patient with history of prostate CA. 5. Additional stable ancillary findings, as above. Liver Ultrasound 01/07/19 00:00 CONCLUSION: 1. Minimal increase in echogenicity of the liver without mass or hydronephrosis. 2. There is no ductal dilatation Physical Exam: GENERAL: awake and alert, not in respiratory distress. SKIN: Cool and dry. No generalized rash EYES: [place] conjunctiva. No petechia or hemorrhage. No scleral icterus. No injection or drainage. EARS, NOSE AND THROAT: Mucous membranes pink and moist. No oral lesions noted. No exudate. No oral thrush. NECK: Trachea midline. Supple and not tender, no meningeal signs CARDIOVASCULAR: Regular rate and rhythm. No murmurs, rubs or gallops heard RESPIRATORY: Clear to auscultation. Breath sounds equal bilaterally. No rales , wheezing or rhonchi ABDOMEN: Distended abdomen, with diffuse tenderness. EXTREMITIES: No clubbing, cyanosis, or edema. No calf tenderness. : Galvez catheter in place, urine clear. NEUROLOGICAL: Non-focal. PSYCHIATRIC: calm and cooperative. LINE: No evidence of infection Assessment and Plan - Plan IMpression Possible sepsis due to UTI, better Acute Pyelonephritis, with gross hematuria, has hydroureteronephrosis on R PSAE infection UTI Hemorrhagic cystitis, better Hx prostate CA with bone mets Acute Renal insufficiency, improving Itching with PCN Vomiting Constipation Recommendation Continue Levaquin IV as PSAE frdeerick sensitive. - having vomiting, so will keep IV for now Monitor progress Primary team evaluating abdominal distension and vomiting
[2019-01-11 12:49] LABS: Calcium 8.7 mg/dL (8.5-10.1); Carbon Dioxide 23.5 meq/L (21.0-32.0); Potassium 4.1 meq/L (3.5-5.1)
--- NOTE | 2019-01-11 13:56 | XR ---
EXAM DATE: 01/11/2019 11:37 AM EST AGE/SEX: 83 years / Male INDICATIONS: Constipation x 1 week CLINICAL DATA: This is the patient's initial encounter. Patient reports that signs and symptoms have been present for 4 - 6 days and indicates a pain score of 4/10. MEDICAL/SURGICAL HISTORY: Carcinoma, prostatic. Hypertension. CABG. Appendectomy. Prostatect darion. [place] [facility] [place]. . FINDINGS: Abnormal bowel gas pattern with multiple dilated loops of small bowel measuring up to 5 cm in width. The stomach is also distended with gas. No dilated loops of colon, but there is a mild amount of sto ol in the right colon. The visualized lower lungs are clear. Multiple hemoclips in the left and right pelvis. 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 CONCLUSION: Abnormal bowel gas pattern with multiple distended loops of small bowel, distended stomach, and no di lated loops of colon. Recommend follow-up films after placement of gastric tube. Electronically signed by: Christopher Croft MD Board Certified Radiologist 01/11/2019 1:54 PM EST
[2019-01-11] MEDS: Mirtazapine 15 MG Tablet PO SCH (21:28)
--- NOTE | 2019-01-11 22:24 | XR ---
EXAM DATE: 01/11/2019 10:18 PM EST AGE/SEX: 83 years / Male INDICATIONS: Post NG tube placement. CLINICAL DATA: This is the patient's subsequent encounter. Patient reports that signs and symptoms h ave been present for 1 week and indicates a pain score of 0/10. MEDICAL/SURGICAL HISTORY: . Carcinoma, prostatic. Hypertension. . CABG. Appendectomy. Prostat ectomy. COMPARISON: [facility] – [place]OMEN 1V KUB, 01/11/2019. . FINDINGS: Examination of the abdomen demonstrates mild prominence of multiple small bowel loops which has decom pressed from previous study. Nasogastric tube with tip in stomach. No free air is identified. No or ganomegaly is evident. CONCLUSION: Mild prominence of small bowel loops significantly decreased in prominence from previous study. Electronically signed by: Ariel You MD Board Certified Radiologist 01/11/2019 10:22 PM EST
--- NOTE | 2019-01-11 23:12 | P.PNADD ---
Addendum to Inpatient Note Reason for Addendum: Additional Documentation Additional information: Residents paged due to elevated HR and abdominal distention. According to nursing staff, NG tube was ordered for 5pm but not placed until after 7pm. NG tube set to gravity and filled two containers. NG tube came out. Charge nurse replaced tube and had repeat abdominal x-ray ordered. NG tube filled additional container of green fluid. Patient was unable to take pm Lopressor due to vomiting. Continued to vomit after receiving zofran and unable to take medication. Patient has been tachycardic in the 130s-140s since 8pm. Initially nursing staff noted abdominal distension and "hard abdomen" but according to nursing staff the distension has improved and abdomen is now soft. Patient states he is in some abdominal pain (upper abdomen) but has much improved during the day. He denies any chest pain or shortness of breath or nausea at this time. He is complaining of being cold. VS: HR 148 RR 16 O2 saturation 86% on room air GENERAL: Elderly appearing male in mild distress due to pain. SKIN: Warm and dry. No rash. EYES: No scleral icterus. No injection or drainage. PERRLA. EOMI. CARDIOVASCULAR: Increased rate and regular rhythm without obvious murmurs, gallops, or rubs. RESPIRATORY: Breath sounds equal bilaterally. No accessory muscle use. CTAB. No wheezes or crackles GASTROINTESTINAL: Abdomen soft, abdomen distended; tender to palpation of both upper quadrants. No BS. MUSCULOSKELETAL: No cyanosis or edema. Strength grossly WNL. non-tender calves BL. NEURO/PSYCH: Afocal. Awake, alert, and oriented x3. Resting Tremor of upper extremities A/P: 83 year old with a history of prostate cancer, 25 years status post radical proctectomy, orchiectomy with failed penile prosthesis who was admitted for 3 week history of hematuria. Found to have ureteral hydronephrosis with partial obstruction. Cleared by urology. Continued to need hospital care due to abdominal pain with KUB finding of abnormal bowel gas pattern. NG tube was placed today. This evening patient tachycardic and unable to tolerate pm Lopressor. Nursing staff was concerned for continued abdominal distension, tachycardia, and respiratory saturation of 86%. Ddx small bowel obstruction, cardiac arrhythmia, PE, pneumonia, small bowel perforation.. - Abdominal x-ray: Mild prominence of small bowel loops significantly decreased in prominence from previous study. NG tube with tip in stomach - ABG -500mL bolus NS - NG tube to suction -Chest x-ray -EKG -oxygen therapy to maintain O2 saturation>92% Patient seen and discussed with Dr. West
[2019-01-11] MEDS ORDERED: Sodium Chlor 0.9% Inj 500 ML IV.SIG SCH ×2 (23:24→23:45)
[2019-01-11 23:30] LABS: ABG Base Excess -3.8 mmol/L (-2-2); ABG PCO2 22 mmHg (38-42); ABG PO2 49 mmHg (61-120)
--- NOTE | 2019-01-11 23:49 | XR ---
EXAM DATE: 01/11/2019 11:32 PM EST AGE/SEX: 83 years / Male INDICATIONS: Dyspnea. CLINICAL DATA: This is the patient's subsequent encounter. Patient reports that signs and symptoms h ave been present for 4 - 6 days and indicates a pain score of 7/10. MEDICAL/SURGICAL HISTORY: None. Carcinoma, prostatic. Hypertension. . CABG. Appendectomy. Pro statectomy. COMPARISON: [facility] – [place], [place]ST SINGLE AP, 02/19/2017. . FINDINGS: Nasogastric tube descends into the stomach. There is mild bilateral perihilar and basilar infiltrate, right worse than left. Cardiac contours are satisfactory. CONCLUSION: Mild bilateral infiltrates Electronically signed by: Daron Steinberg MD Board Certified Radiologist 01/11/2019 11:48 PM EST
[2019-01-11] MEDS ORDERED: Metoprolol Tartrate 25 MG Tablet PO ONE (23:52)
[2019-01-12] MEDS ORDERED: Metoprolol Inj 5 MG/5 ML Vial IV.PUSH ONE (01:18)
[2019-01-12] MEDS: Aztreonam Inj 2 GM in Sodium Chloride 0.9% Inj 100 ML IV.SIG SCH ×2 (01:48→10:25)
[2019-01-12 04:24] LABS: Hematocrit 37.5 % (39.0-51.0); Hemoglobin 12.6 gm/dL (13.0-17.0); Mean Corpuscular HGB Conc 33.5 % (32.0-36.0); Mean Corpuscular Hemoglobin 30.4 pg (27.0-34.0); Mean Corpuscular Volume 90.5 fL (80.0-100.0); Mean Platelet Volume 7.2 fL (7.0-11.0); Platelet Count 336 th/mm3 (150-450); Red Blood Count 4.15 mil/mm3 (4.50-5.90); Red Cell Distribution Width 15.1 % (11.6-17.2); White Blood Count 12.8 th/mm3 (4.0-11.0)
[2019-01-12 05:27] LABS: Lymphocytes 5 % (9-44); Monocytes 6 % (0-8)
[2019-01-12 05:28] LABS: Platelet Estimate Normal (Normal); Platelet Morphology Normal (Normal)
[2019-01-12 05:39] LABS: Hematocrit 35.9 % (39.0-51.0); Hemoglobin 12.1 gm/dL (13.0-17.0); Mean Corpuscular HGB Conc 33.6 % (32.0-36.0); Mean Corpuscular Hemoglobin 30.1 pg (27.0-34.0); Mean Corpuscular Volume 89.6 fL (80.0-100.0); Mean Platelet Volume 7.4 fL (7.0-11.0); Platelet Count 302 th/mm3 (150-450); Red Blood Count 4.01 mil/mm3 (4.50-5.90); Red Cell Distribution Width 15.1 % (11.6-17.2); White Blood Count 12.6 th/mm3 (4.0-11.0)
[2019-01-12 06:10] LABS: Alanine Aminotransferase 41 U/L (12-78); Anion Gap 9 meq/L (5-15); Aspartate Aminotransferase 39 U/L (15-37); Blood Urea Nitrogen 34 mg/dL (7-18); Calcium 7.9 mg/dL (8.5-10.1); Carbon Dioxide 22.8 meq/L (21.0-32.0); Chloride 113 meq/L (98-107); Glomerular Filtration Rate 46 mL/min (>89); Glucose,Random 130 mg/dL (74-106); Sodium 145 meq/L (136-145)
[2019-01-12 06:12] LABS: Alkaline Phosphatase 302 U/L (45-117); Total Protein 5.4 g/dL (6.4-8.2)
[2019-01-12] MEDS: oxyCODONE/Acetaminophen 10/325 Tablet PO SCH (06:13)
[2019-01-12 06:58] LABS: Lymphocytes 4 % (9-44); Monocytes 6 % (0-8); Platelet Estimate Normal (Normal); Platelet Morphology Normal (Normal)
[2019-01-12 06:59] LABS: RBC Morphology Normal (Normal)
[2019-01-12] MEDS ORDERED: Diatrizoate Meglum/Diatrizoate Sod Liq 9 ML UDC PO ONE (07:06)
[2019-01-12] MEDS ORDERED: Sodium Chlor 0.9% Inj 500 ML IV.SIG SCH (07:10)
[2019-01-12] MEDS: Metoprolol Tartrate 25 MG Tablet PO SCH ×2 (08:05→20:15)
[2019-01-12] MEDS: Lactobacillus Acidophilus/L. Spores Tablet PO SCH ×2 (08:05→20:14)
[2019-01-12] MEDS ORDERED: oxyCODONE/Acetaminophen 10/325 Tablet PO PRN (08:26)
--- NOTE | 2019-01-12 08:52 | P.PNFP ---
Subjective Interval history: Patient seen and examined at bedside this am. Overnight patient was evaluated by lubrication supervisor resident team due to elevated HR and abdominal distention (please see addendum note from 01/11 for more detail). There was a delay in the placement of the NG tube. NG placed overnight filled appx 3 canisters just on gravity. CXR ordered yesterday also showed mild BL infiltrates and additional abx were added to his regimen. This am pt reports his abdominal distension is improved and he has gotten some relief from the NG suction. However, he still feels "stocked up". Also reports decreases nausea. Denies CP, sob, dizziness, fever, chills. Nurse reports patient had 2 small liquid BM overnight. Patient is still passing flatus. <Portia Kellogg - 01/12/19 10:22> Results - Labs Result diagrams: 01/12/19 05:03 01/12/19 05:03 <Ingrid Workman - 01/12/19 21:09> Abnormal lab results 01/11/19 01/12/19 01/12/19 Range/Units 23:17 00:10 03:40 WBC 12.8 H (4.0-11.0) th/mm3 RBC 4.15 L (4.50-5.90) mil/mm3 Hgb 12.6 L (13.0-17.0) gm/dL Hct 37.5 L (39.0-51.0) % Seg Neuts % (Manual) 82 H (16-70) % Band Neuts % (Manual) 7 H (0-6) % Lymphocytes % (Manual) 5 L (9-44) % Abs Neuts (Manual) 11.4 H (1.8-7.7) th/mm3 O2 Saturation 85 L* (90-100) % ABG pH 7.54 H* (7.380-7.420) ABG pCO2 22 L* (38-42) mmHg ABG pO2 49 L* (61-120) mmHg ABG HCO3 19 L (22-26) mmol/L ABG Base Excess -3.8 L (-2-2) mmol/L Chloride (98-107) meq/L BUN (7-18) mg/dL Creatinine (0.60-1.30) mg/dL Estimated GFR (>89) mL/min Random Glucose (74-106) mg/dL Lactic Acid 3.7 H (0.4-2.0) mmol/L Calcium (8.5-10.1) mg/dL AST (15-37) U/L Alkaline Phosphatase (45-117) U/L Total Protein (6.4-8.2) g/dL Albumin (3.4-5.0) g/dL Procalcitonin (0.00-0.07) ng/mL 01/12/19 01/12/19 01/12/19 Range/Units 03:40 05:03 05:03 WBC 12.6 H (4.0-11.0) th/mm3 RBC 4.01 L (4.50-5.90) mil/mm3 Hgb 12.1 L (13.0-17.0) gm/dL Hct 35.9 L (39.0-51.0) % Seg Neuts % (Manual) 80 H (16-70) % Band Neuts % (Manual) 10 H (0-6) % Lymphocytes % (Manual) 4 L (9-44) % Abs Neuts (Manual) 11.3 H (1.8-7.7) th/mm3 O2 Saturation (90-100) % ABG pH (7.380-7.420) ABG pCO2 (38-42) mmHg ABG pO2 (61-120) mmHg ABG HCO3 (22-26) mmol/L ABG Base Excess (-2-2) mmol/L Chloride 113 H (98-107) meq/L BUN 34 H (7-18) mg/dL Creatinine 1.45 H (0.60-1.30) mg/dL Estimated GFR 46 L (>89) mL/min Random Glucose 130 H (74-106) mg/dL Lactic Acid 3.4 H (0.4-2.0) mmol/L Calcium 7.9 L D (8.5-10.1) mg/dL AST 39 H (15-37) U/L Alkaline Phosphatase 302 H (45-117) U/L Total Protein 5.4 L (6.4-8.2) g/dL Albumin 2.0 L (3.4-5.0) g/dL Procalcitonin (0.00-0.07) ng/mL 01/12/19 Range/Units 05:03 WBC (4.0-11.0) th/mm3 RBC (4.50-5.90) mil/mm3 Hgb (13.0-17.0) gm/dL Hct (39.0-51.0) % Seg Neuts % (Manual) (16-70) % Band Neuts % (Manual) (0-6) % Lymphocytes % (Manual) (9-44) % Abs Neuts (Manual) (1.8-7.7) th/mm3 O2 Saturation (90-100) % ABG pH (7.380-7.420) ABG pCO2 (38-42) mmHg ABG pO2 (61-120) mmHg ABG HCO3 (22-26) mmol/L ABG Base Excess (-2-2) mmol/L Chloride (98-107) meq/L BUN (7-18) mg/dL Creatinine (0.60-1.30) mg/dL Estimated GFR (>89) mL/min Random Glucose (74-106) mg/dL Lactic Acid (0.4-2.0) mmol/L Calcium (8.5-10.1) mg/dL AST (15-37) U/L Alkaline Phosphatase (45-117) U/L Total Protein (6.4-8.2) g/dL Albumin (3.4-5.0) g/dL Procalcitonin 1.09 H (0.00-0.07) ng/mL Short CBC 01/12/19 01/12/19 Range/Units 03:40 05:03 WBC 12.8 H 12.6 H (4.0-11.0) th/mm3 Hgb 12.6 L 12.1 L (13.0-17.0) gm/dL Hct 37.5 L 35.9 L (39.0-51.0) % Plt Count 336 302 (150-450) th/mm3 BMP 01/12/19 05:03 Sodium 145 Potassium 4.0 Chloride 113 H Carbon Dioxide 22.8 BUN 34 H Creatinine 1.45 H Calcium 7.9 L D Liver Function 01/12/19 Range/Units 05:03 Total Bilirubin 0.9 (0.2-1.0) mg/dL AST 39 H (15-37) U/L ALT 41 (12-78) U/L Alkaline Phosphatase 302 H (45-117) U/L Albumin 2.0 L (3.4-5.0) g/dL <Ingrid Workman - 01/12/19 21:09> Abnormal lab results 01/11/19 01/11/19 01/11/19 Range/Units 10:51 10:51 23:17 WBC (4.0-11.0) th/mm3 RBC (4.50-5.90) mil/mm3 Hgb (13.0-17.0) gm/dL Hct (39.0-51.0) % Neut % (Auto) 74.9 H (16.0-70.0) % [place] % (Auto) 8.9 H (0.0-8.0) % Seg Neuts % (Manual) (16-70) % Band Neuts % (Manual) (0-6) % Lymphocytes % (Manual) (9-44) % Abs Neuts (Manual) (1.8-7.7) th/mm3 O2 Saturation 85 L* (90-100) % ABG pH 7.54 H* (7.380-7.420) ABG pCO2 22 L* (38-42) mmHg ABG pO2 49 L* (61-120) mmHg ABG HCO3 19 L (22-26) mmol/L ABG Base Excess -3.8 L (-2-2) mmol/L Chloride 108 H (98-107) meq/L BUN 30 H (7-18) mg/dL Creatinine (0.60-1.30) mg/dL Estimated GFR 55 L (>89) mL/min Random Glucose 120 H (74-106) mg/dL Lactic Acid (0.4-2.0) mmol/L Calcium (8.5-10.1) mg/dL AST (15-37) U/L Alkaline Phosphatase (45-117) U/L Total Protein (6.4-8.2) g/dL Albumin (3.4-5.0) g/dL 01/12/19 01/12/19 01/12/19 Range/Units 00:10 03:40 03:40 WBC 12.8 H (4.0-11.0) th/mm3 RBC 4.15 L (4.50-5.90) mil/mm3 Hgb 12.6 L (13.0-17.0) gm/dL Hct 37.5 L (39.0-51.0) % Neut % (Auto) (16.0-70.0) % [place] % (Auto) (0.0-8.0) % Seg Neuts % (Manual) 82 H (16-70) % Band Neuts % (Manual) 7 H (0-6) % Lymphocytes % (Manual) 5 L (9-44) % Abs Neuts (Manual) 11.4 H (1.8-7.7) th/mm3 O2 Saturation (90-100) % ABG pH (7.380-7.420) ABG pCO2 (38-42) mmHg ABG pO2 (61-120) mmHg ABG HCO3 (22-26) mmol/L ABG Base Excess (-2-2) mmol/L Chloride (98-107) meq/L BUN (7-18) mg/dL Creatinine (0.60-1.30) mg/dL Estimated GFR (>89) mL/min Random Glucose (74-106) mg/dL Lactic Acid 3.7 H 3.4 H (0.4-2.0) mmol/L Calcium (8.5-10.1) mg/dL AST (15-37) U/L Alkaline Phosphatase (45-117) U/L Total Protein (6.4-8.2) g/dL Albumin (3.4-5.0) g/dL 01/12/19 01/12/19 Range/Units 05:03 05:03 WBC 12.6 H (4.0-11.0) th/mm3 RBC 4.01 L (4.50-5.90) mil/mm3 Hgb 12.1 L (13.0-17.0) gm/dL Hct 35.9 L (39.0-51.0) % Neut % (Auto) (16.0-70.0) % [place] % (Auto) (0.0-8.0) % Seg Neuts % (Manual) 80 H (16-70) % Band Neuts % (Manual) 10 H (0-6) % Lymphocytes % (Manual) 4 L (9-44) % Abs Neuts (Manual) 11.3 H (1.8-7.7) th/mm3 O2 Saturation (90-100) % ABG pH (7.380-7.420) ABG pCO2 (38-42) mmHg ABG pO2 (61-120) mmHg ABG HCO3 (22-26) mmol/L ABG Base Excess (-2-2) mmol/L Chloride 113 H (98-107) meq/L BUN 34 H (7-18) mg/dL Creatinine 1.45 H (0.60-1.30) mg/dL Estimated GFR 46 L (>89) mL/min Random Glucose 130 H (74-106) mg/dL Lactic Acid (0.4-2.0) mmol/L Calcium 7.9 L D (8.5-10.1) mg/dL AST 39 H (15-37) U/L Alkaline Phosphatase 302 H (45-117) U/L Total Protein 5.4 L (6.4-8.2) g/dL Albumin 2.0 L (3.4-5.0) g/dL Short CBC 01/11/19 01/12/19 01/12/19 Range/Units 10:51 03:40 05:03 WBC 9.8 12.8 H 12.6 H (4.0-11.0) th/mm3 Hgb 13.7 12.6 L 12.1 L (13.0-17.0) gm/dL Hct 40.0 37.5 L 35.9 L (39.0-51.0) % Plt Count 327 336 302 (150-450) th/mm3 BMP 01/11/19 01/12/19 10:51 05:03 Sodium 141 145 Potassium 4.1 4.0 Chloride 108 H 113 H Carbon Dioxide 23.5 22.8 BUN 30 H 34 H Creatinine 1.24 1.45 H Calcium 8.7 7.9 L D Liver Function 01/12/19 Range/Units 05:03 Total Bilirubin 0.9 (0.2-1.0) mg/dL AST 39 H (15-37) U/L ALT 41 (12-78) U/L Alkaline Phosphatase 302 H (45-117) U/L Albumin 2.0 L (3.4-5.0) g/dL <Jeremiah R2,Portia D - 01/12/19 08:52> - Imaging Impressions Abdomen X-Ray 01/11/19 00:00 CONCLUSION: Mild prominence of small bowel loops significantly decreased in prominence from previous study. Chest X-Ray 01/11/19 00:00 CONCLUSION: Mild bilateral infiltrates Abdomen X-Ray 01/12/19 00:00 CONCLUSION: Air filled distention of small bowel and colon likely representing ileus. Small bowel distention has slightly increased. Abdomen/Pelvis CT 01/12/19 00:00 CONCLUSION: 1. Abnormal bowel gas pattern with multiple loops of borderline dilated air- containing small bowel with multiple air-fluid levels. The distal most portion of the small bowel and colon are decompressed. The findings of concern for distal small bowel obstruction. 2. Small bilateral pleural effusions and consolidation both lung bases. 3. Stable appearance of the right ilium and ischium with sclerosis and thickening. 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 Metastatic prostate cancer could have a similar appearance. <Ingrid Workman - 01/12/19 21:09> Impressions Abdomen X-Ray 01/11/19 00:00 CONCLUSION: Abnormal bowel gas pattern with multiple distended loops of small bowel, distended stomach, and no dilated loops of colon. Recommend follow-up films after placement of gastric tube. Abdomen X-Ray 01/11/19 00:00 CONCLUSION: Mild prominence of small bowel loops significantly decreased in prominence from previous study. Chest X-Ray 01/11/19 00:00 CONCLUSION: Mild bilateral infiltrates <Portia Kellogg - 01/12/19 08:52> Physical Exam Vital signs: Vital Signs 01/11/19 22:00 01/11/19 23:00 01/12/19 00:19 Temperature 98.7 F Pulse Rate 142 H Respiratory Rate 20 Blood Pressure 116/82 Pulse Oximetry 88 L 93 L 93 L 01/12/19 00:20 01/12/19 00:41 01/12/19 00:43 Temperature 100.3 F H Pulse Rate 144 H 144 H 149 H Respiratory Rate 32 H 34 H 34 H Blood Pressure 149/75 H 134/82 Pulse Oximetry 94 L 92 L 87 L 01/12/19 00:45 01/12/19 01:00 01/12/19 01:15 Temperature 100.2 F H Pulse Rate 147 H 140 H 134 H Respiratory Rate 34 H 34 H Blood Pressure 138/62 109/61 113/61 Pulse Oximetry 97 94 L 98 01/12/19 01:30 01/12/19 01:45 01/12/19 02:00 Temperature Pulse Rate 132 H 131 H 108 H Respiratory Rate 32 H 32 H Blood Pressure 119/62 122/61 111/58 L Pulse Oximetry 97 97 94 L 01/12/19 02:39 01/12/19 03:00 01/12/19 03:09 Temperature Pulse Rate 115 H 119 H 119 H Respiratory Rate 27 H 28 H Blood Pressure 131/61 87/56 L Pulse Oximetry 97 96 98 01/12/19 04:00 01/12/19 04:02 01/12/19 05:00 Temperature 100.0 F H Pulse Rate 120 H 119 H 119 H Respiratory Rate 28 H 24 Blood Pressure 98/53 L 108/58 L Pulse Oximetry 98 98 99 01/12/19 05:51 01/12/19 06:00 01/12/19 06:51 Temperature Pulse Rate 114 H 114 H 112 H Respiratory Rate 22 22 22 Blood Pressure 112/57 L 102/56 L Pulse Oximetry 93 L 93 L 98 01/12/19 07:00 01/12/19 07:51 01/12/19 08:00 Temperature 98.8 F Pulse Rate 114 H 115 H 114 H Respiratory Rate 22 22 23 Blood Pressure 111/72 Pulse Oximetry 98 95 98 01/12/19 08:38 01/12/19 08:51 01/12/19 08:53 Temperature Pulse Rate 107 H 108 H Respiratory Rate 24 25 H Blood Pressure 181/67 H 158/67 H Pulse Oximetry 99 97 97 01/12/19 09:00 01/12/19 09:51 01/12/19 10:00 Temperature Pulse Rate 103 H 103 H 103 H Respiratory Rate 25 H 21 22 Blood Pressure 120/59 L Pulse Oximetry 98 98 99 01/12/19 10:51 01/12/19 11:00 01/12/19 11:51 Temperature Pulse Rate 100 H 103 H 104 H Respiratory Rate 27 H 28 H 26 H Blood Pressure 125/68 113/71 Pulse Oximetry 97 97 97 01/12/19 12:00 01/12/19 12:51 01/12/19 13:00 Temperature 98.3 F Pulse Rate 105 H 108 H 107 H Respiratory Rate 28 H 23 22 Blood Pressure 113/54 L Pulse Oximetry 97 98 98 01/12/19 13:51 01/12/19 14:00 02/13/19 14:51 Temperature Pulse Rate 111 H 105 H 104 H Respiratory Rate 21 19 21 Blood Pressure 147/60 H 110/57 L Pulse Oximetry 97 99 96 01/12/19 15:00 01/12/19 15:51 01/12/19 16:00 Temperature 97.9 F Pulse Rate 107 H 106 H 106 H Respiratory Rate 22 19 21 Blood Pressure 117/57 L Pulse Oximetry 95 97 98 01/12/19 16:51 01/12/19 17:00 01/12/19 17:51 Temperature Pulse Rate 104 H 105 H 104 H Respiratory Rate 19 20 19 Blood Pressure 101/62 132/67 Pulse Oximetry 97 95 98 01/12/19 18:00 Temperature Pulse Rate 103 H Respiratory Rate 20 Blood Pressure Pulse Oximetry 97 Intake & Output 01/12/19 01/12/19 01/13/19 06:59 18:59 06:59 Intake Total 2200 / 2200 2150 / 2150 Output Total 1600 / 1600 3100 / 3100 Balance 600 / 600 -950 / -950 Weight 81.2 kg Intake: IV 2200 / 2200 2150 / 2150 NS + KCl 20 mEq Inj 1,000 ML @ 1000 / 1000 1000 / 1000 84 mls/hr IV.CONT .[id number] [facility] Rx#:[id number] Azactam Inj 2 GM In NS Inj 100 100 / 100 100 / 100 ML @ 200 mls/hr IV.SIG Q8H [facility] Rx#:[id number] Levaquin 750 mg Premix Inj 150 150 / 150 ML @ 100 mls/hr IV.SIG Q24HR [facility] Rx#:[id number] Zyvox 600 mg Premix 300 ML @ 300 / 300 300 mls/hr IV.SIG Q12H [facility] Rx#: [id number] NS Inj 500 ML @ 1000 mls/hr IV. 1000 / 1000 500 / 500 SIG BOLUS [facility] Rx#:[id number] Flagyl 500 MG Inj 100 ML @ 100 100 / 100 100 / 100 mls/hr IV.SIG Q8H [facility] Rx#: [id number] Oral 0 / 0 Output: Urine Amount (Catheter) 1600 / 1600 1400 / 1400 Indwelling Urethral Catheter 1600 / 1600 1400 / 1400 Gastric Drainage 1700 / 1700 Right Nare Nasogastric Tube 1700 / 1700 Other: Bladder Irrigation Fluid - Amount Instilled Indwelling Urethral Catheter 300 900 Date of Last Bowel Movement 01/12/19 01/12/19 # Incontinent Bowel Movements 1 <Ingrid Workman - 01/12/19 21:09> Vital Signs 01/11/19 12:00 01/11/19 16:00 01/11/19 20:00 Temperature 97.4 F L 97.2 F L 98.7 F Pulse Rate 118 H 117 H 120 H Respiratory Rate 16 16 16 Blood Pressure 119/79 117/80 107/71 Pulse Oximetry 94 L 95 92 L 01/11/19 22:00 01/11/19 23:00 01/12/19 00:19 Temperature 98.7 F Pulse Rate 142 H Respiratory Rate 20 Blood Pressure 116/82 Pulse Oximetry 88 L 93 L 93 L 01/12/19 00:20 01/12/19 00:41 01/12/19 00:43 Temperature 100.3 F H Pulse Rate 144 H 144 H 149 H Respiratory Rate 32 H 34 H 34 H Blood Pressure 149/75 H 134/82 Pulse Oximetry 94 L 92 L 87 L 01/12/19 00:45 01/12/19 01:00 01/12/19 01:15 Temperature 100.2 F H Pulse Rate 147 H 140 H 134 H Respiratory Rate 34 H 34 H Blood Pressure 138/62 109/61 113/61 Pulse Oximetry 97 94 L 98 01/12/19 01:30 01/12/19 01:45 01/12/19 02:00 Temperature Pulse Rate 132 H 131 H 108 H Respiratory Rate 32 H 32 H Blood Pressure 119/62 122/61 111/58 L Pulse Oximetry 97 97 94 L 01/12/19 02:39 01/12/19 03:00 01/12/19 03:09 Temperature Pulse Rate 115 H 119 H 119 H Respiratory Rate 27 H 28 H Blood Pressure 131/61 87/56 L Pulse Oximetry 97 96 98 01/12/19 04:00 01/12/19 04:02 01/12/19 05:00 Temperature 100.0 F H Pulse Rate 120 H 119 H 119 H Respiratory Rate 28 H 24 Blood Pressure 98/53 L 108/58 L Pulse Oximetry 98 98 99 01/12/19 05:51 01/12/19 06:00 Temperature Pulse Rate 114 H 114 H Respiratory Rate 22 22 Blood Pressure 112/57 L Pulse Oximetry 93 L 93 L Intake & Output 01/11/19 01/12/19 01/12/19 18:59 06:59 18:59 Intake Total 720 / 720 2200 / 2200 Output Total 1600 / 1600 Balance 720 / 720 600 / 600 Weight 81.2 kg Intake: IV 2200 / 2200 NS + KCl 20 mEq Inj 1,000 ML @ 1000 / 1000 84 mls/hr IV.CONT .[id number] [facility] Rx#:[id number] Azactam Inj 2 GM In NS Inj 100 100 / 100 ML @ 200 mls/hr IV.SIG Q8H [facility] Rx#:[id number] NS Inj 500 ML @ 1000 mls/hr IV. 1000 / 1000 SIG BOLUS [facility] Rx#:[id number] Flagyl 500 MG Inj 100 ML @ 100 100 / 100 mls/hr IV.SIG Q8H [facility] Rx#: [id number] Oral 720 / 720 0 / 0 Output: Urine Amount (Catheter) 1600 / 1600 Indwelling Urethral Catheter 1600 / 1600 Other: Post Void Residual 2,775 Bladder Irrigation Fluid - Amount Instilled Indwelling Urethral Catheter 300 Date of Last Bowel Movement 01/04/19 01/12/19 # Bowel Movements 2 # Incontinent Bowel Movements 1 <Portia Kellogg - 01/12/19 08:52> Narrative: GENERAL: Elderly male siting up in bed in no acute distress. SKIN: Warm and dry. EYES: No scleral icterus. No injection or drainage. PERRLA. EOMI. CARDIOVASCULAR: Regular rate and rhythm without obvious murmurs, gallops, or rubs. RESPIRATORY: mild atelectasis at lower bases L>R. No accessory muscle use. CTAB at upper lobes BL. No wheezing or crackles GASTROINTESTINAL: Abdomen soft, distension has improved compared to yesterday am , non-tender abdomen with positive bowel sounds GENITOURINARY: Kevin catheter in place draining light yellow fluid. MUSCULOSKELETAL: No cyanosis or edema. Strength grossly WNL. non-tender calves BL. NEURO/PSYCH: Afocal. Awake, alert, and oriented x3. <Portia Kellogg - 01/12/19 08:52> - Urinary Catheter Management Indwelling Urethral Catheter Cath placed during this visit: no <Ingrid Workman - 01/12/19 21:09> yes, but has since been removed by the nurse <Portia Kellogg - 01/12/19 10:22> Reason for continuing: Gross Hematuria <Portia Kellogg - 01/12/19 08:52> Insertion date: 01/09/19 <Calzado Escobar Rangelly D - 01/12/19 08:52> Insertion time: 17:35 <Calzado R2EscobarPortia D - 01/12/19 08:52> Removal date: 01/09/19 <Calzado Escobar Rangelly D - 01/12/19 08:52> Removal time: 17:30 <Calzado Escobar Rangelly D - 01/12/19 08:52> Assessment and Plan - Assessment (1) Partial bowel obstruction Code(s): K56.600 - Partial intestinal obstruction, unspecified as to cause Status: Acute (2) Pneumonia Code(s): J18.9 - Pneumonia, unspecified organism Status: Acute (3) Complicated urinary tract infection Code(s): N39.0 - Urinary tract infection, site not specified Status: Acute (4) Gross hematuria Code(s): R31.0 - Gross hematuria Status: Resolved (5) Hypertension Code(s): I10 - Essential (primary) hypertension Status: Chronic (6) Prostate cancer Code(s): C61 - Malignant neoplasm of prostate Status: Chronic (7) Nutrition, metabolism, and development symptoms Code(s): R63.8 - Other symptoms and signs concerning food and fluid intake Status: Acute <Ingrid Workman - 01/12/19 21:09> (1) Partial bowel obstruction Code(s): K56.600 - Partial intestinal obstruction, unspecified as to cause Status: Acute Plan: Patient with multiple days of no bowel movements. He had worsening abd distension and n/v yesterday morning. KUB 01/11 showed: Abnormal bowel gas pattern with multiple distended loops of small bowel, distended stomach, and no dilated loops of colon. Patient placed NPO NG tube ordered IVF NS+ 20 MEq KCL @ 84mls/hr lactic acid ordered was elevated at 3.7-->3.4 repeat KUB showing: Mild prominence of small bowel loops significantly decreased in prominence from previous study. Patient with improved abd distention and sxs this am Still passing flatus and 2 small loose BM constipation regimen held 500 NS/D5 bolus given this am x1 NG tube removed 3 canister of bilious gastric material f/u CT abd trend lactic acid consider gen consult for evaluation of surgical intervention (2) Pneumonia Code(s): J18.9 - Pneumonia, unspecified organism Status: Acute Plan: Patient with CXR showing mild BL infiltrate yesterday ABG 01/11: PH 7.4, PCO2 22, PO2 49, HCO3 19 abx coverage broaden due to concern for hospital acquired pna: Continue with Levaquin Aztreonam, Flagyl, linezolid due to poor kidney function currently Currently breathing comfortably on simple mask with o2 at 93% f/u procalcitonin (3) Complicated urinary tract infection Code(s): N39.0 - Urinary tract infection, site not specified Status: Acute Plan: Blood cultures negative times 4 days Urine culture positive for Pseudomonas, currently on Levaquin 750 mg, every 48 hours. Infectious disease recommends continuing IV antibiotic due to nausea and vomiting Creatinine now slightly worse 1.24--> 1.45 Continued nausea and vomiting, currently on Zofran 4 mg, added Reglan prn (4) Gross hematuria Code(s): R31.0 - Gross hematuria Status: Resolved Plan: H/H stable Hematuria resolved, light yellow urine in kevin bag s/p transfused of 2 units of packed red blood cells Currently on oxybutynin 5 mg p.o. 3 times daily Pain management: on morphine and Percocet PRN for pain control Currently on Pyridium (5) Hypertension Code(s): I10 - Essential (primary) hypertension Status: Chronic Plan: BP this am 120/59 Continue metoprolol 12.5 mg p.o. twice a day Continue to monitor blood pressure readings (6) Prostate cancer Code(s): C61 - Malignant neoplasm of prostate Status: Chronic (7) Nutrition, metabolism, and development symptoms Code(s): R63.8 - Other symptoms and signs concerning food and fluid intake Status: Acute Plan: Fluids: NS+ 20MEQ at 84mls/hr Electrolytes: Replete as needed Nutrition: npo DVT prophylaxis: Not indicated due to gross hematuria on admission, SCDs bilaterally <Portia Kellogg - 01/12/19 09:57> - Attending Attestation Patient seen and examined, discussed with resident team. I agree with assessment and management as documented and discussed with me. Pt with clinical worsening yesterday, in the morning with abdominal distention. KUB demonstrated small bowel obstruction and NG tube placed. Pt transferred to ICU overnight due to tachycardia and increased oxygen requirements. This morning, pt seen in ICU. He reports needing to have a bowel movement (had small liquid BM subsequently). He feels abdominal distention is better. He denies cough, difficulty breathing. Continue NG tube. Check CT abdomen. Antibiotics as ordered. <Ingrid Workman - 01/12/19 21:09>
[2019-01-12] MEDS: XTANDI 160 MG PO SCH (10:25)
--- NOTE | 2019-01-12 12:33 | P.PNID ---
Subjective Remarks: Patient is an 83-year-old male, with known history of prostate cancer, recently diagnosed to have recurrence, and metastatic disease, presented to the hospital complaining of severe suprapubic abdominal pain. Patient apparently has had problem with urinary retention, and he has been requiring Galvez catheter for this problem since I believe September 2018. In October, he was hospitalized at the [facility] due to urinary retention. According to the patient while he was in there they tried straight catheter procedure for his problem, and patient stated he developed hematuria. He was switched back to Galvez catheter, and he was discharged to the [facility] rehab. Patient stated that his catheter was changed in the rehab once, but he could not remember the last time it was changed. 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 In the ED they did a bladder scan, and apparently the volume was about 30 mL. He had hematuria at that time, and urine culture was sent and he was sent back to the rehab facility. Apparently the pain medication prescribed to him was not working, so the patient was brought back to the hospital and has now been admitted. Patient currently is complaining of nausea and dry heaves. He is also complaining of significant pain in the suprapubic region. He has gross hematuria and he is urine bag. Patient has been febrile up to 102. CT of the abdomen and pelvis is showing evidence of right hydro-ureteric nephrosis , and there was also possibly a bladder calculi. The bladder is decompressed. Patient gives a history of penicillin allergy with itching. Infectious disease consultation has been requested to assist with antibiotic management. Notes reviewed Transferred to ICU for low O2 sats Temps ok C/O abdominal distension Had vomiting yesterday - NGT placed, >2L out Vomited this AM when NGT clamped after oral contrast given for the CT States breathing ok On 5L ON CBI, has some bloody sediment, not a lot Repeat UA better UC with PSAE sensitive Creatinine improving No rash No diarrhea WBC slightly up Antibiotics: Levaquin Lines: Lines ok Past Medical History: reviewed Allergies/Adverse Reactions: Allergies Penicillins Allergy (Verified 01/06/19 02:12) Itching Objective Vital Signs 01/11/19 16:00 01/11/19 20:00 02/12/19 22:00 Temperature 97.2 F L 98.7 F Pulse Rate 117 H 120 H Respiratory Rate 16 16 Blood Pressure 117/80 107/71 Pulse Oximetry 95 92 L 88 L 01/11/19 23:00 01/12/19 00:19 01/12/19 00:20 Temperature 98.7 F 100.3 F H Pulse Rate 142 H 144 H Respiratory Rate 20 32 H Blood Pressure 116/82 149/75 H Pulse Oximetry 93 L 93 L 94 L 01/12/19 00:41 01/12/19 00:43 01/12/19 00:45 Temperature Pulse Rate 144 H 149 H 147 H Respiratory Rate 34 H 34 H 34 H Blood Pressure 134/82 138/62 Pulse Oximetry 92 L 87 L 97 01/12/19 01:00 01/12/19 01:15 01/12/19 01:30 Temperature 100.2 F H Pulse Rate 140 H 134 H 132 H Respiratory Rate 34 H 32 H Blood Pressure 109/61 113/61 119/62 Pulse Oximetry 94 L 98 97 01/12/19 01:45 01/12/19 02:00 01/12/19 02:39 Temperature Pulse Rate 131 H 108 H 115 H Respiratory Rate 32 H 27 H Blood Pressure 122/61 111/58 L 131/61 Pulse Oximetry 97 94 L 97 01/12/19 03:00 01/12/19 03:09 01/12/19 04:00 Temperature 100.0 F H Pulse Rate 119 H 119 H 120 H Respiratory Rate 28 H 28 H Blood Pressure 87/56 L Pulse Oximetry 96 98 98 01/12/19 04:02 01/12/19 05:00 01/12/19 05:51 Temperature Pulse Rate 119 H 119 H 114 H Respiratory Rate 24 22 Blood Pressure 98/53 L 108/58 L 112/57 L Pulse Oximetry 98 99 93 L 01/12/19 06:00 01/12/19 06:51 01/12/19 07:00 Temperature Pulse Rate 114 H 112 H 114 H Respiratory Rate 22 22 22 Blood Pressure 102/56 L Pulse Oximetry 93 L 98 98 01/12/19 07:51 01/12/19 08:00 01/12/19 08:38 Temperature 98.8 F Pulse Rate 115 H 114 H Respiratory Rate 22 23 Blood Pressure 111/72 Pulse Oximetry 95 98 99 01/12/19 08:51 01/12/19 08:53 01/12/19 09:00 Temperature Pulse Rate 107 H 108 H 103 H Respiratory Rate 24 25 H 25 H Blood Pressure 181/67 H 158/67 H Pulse Oximetry 97 97 98 01/12/19 09:51 01/12/19 10:00 01/12/19 10:51 Temperature Pulse Rate 103 H 103 H 100 H Respiratory Rate 21 22 27 H Blood Pressure 120/59 L 125/68 Pulse Oximetry 98 99 97 01/12/19 11:00 01/12/19 11:51 01/12/19 12:00 Temperature 98.3 F Pulse Rate 103 H 104 H 105 H Respiratory Rate 28 H 26 H 28 H Blood Pressure 113/71 Pulse Oximetry 97 97 97 Intake & Output 01/11/19 01/12/19 01/12/19 18:59 06:59 18:59 Intake Total 720 / 720 2200 / 2200 300 / 300 Output Total 1600 / 1600 Balance 720 / 720 600 / 600 300 / 300 Weight 81.2 kg Intake: IV 2200 / 2200 300 / 300 NS + KCl 20 mEq Inj 1,000 ML @ 1000 / 1000 84 mls/hr IV.CONT .[id number] GEORGE Rx#:[id number] Azactam Inj 2 GM In NS Inj 100 100 / 100 ML @ 200 mls/hr IV.SIG Q8H GEORGE Rx#:[id number] Zyvox 600 mg Premix 300 ML @ 300 / 300 300 mls/hr IV.SIG Q12H GEORGE Rx#: [id number] NS Inj 500 ML @ 1000 mls/hr IV. 1000 / 1000 SIG BOLUS GEORGE Rx#:[id number] Flagyl 500 MG Inj 100 ML @ 100 100 / 100 mls/hr IV.SIG Q8H GEORGE Rx#: [id number] Oral 720 / 720 0 / 0 Output: Urine Amount (Catheter) 1600 / 1600 Indwelling Urethral Catheter 1600 / 1600 Other: Post Void Residual 2,775 Bladder Irrigation Fluid - Amount Instilled Indwelling Urethral Catheter 300 Date of Last Bowel Movement 01/04/19 01/12/19 01/12/19 # Bowel Movements 2 # Incontinent Bowel Movements 1 01/07/19 12:40 Blood - Peripheral Aerobic Blood Culture - Final No growth in 5 days 01/07/19 12:40 Blood - Peripheral Anaerobic Blood Culture - Final QNS - See aerobic report. 01/07/19 12:35 Blood - Peripheral Aerobic Blood Culture - Final No growth in 5 days 01/07/19 12:35 Blood - Peripheral Anaerobic Blood Culture - Final QNS - See aerobic report. 01/06/19 09:51 Blood - Peripheral Aerobic Blood Culture - Final No growth in 5 days 01/06/19 09:51 Blood - Peripheral Anaerobic Blood Culture - Final No growth in 5 days 01/12/19 03:48 Blood - Peripheral Aerobic Blood Culture - Pending 01/12/19 03:48 Blood - Peripheral Anaerobic Blood Culture - Pending 01/12/19 03:40 Blood - Peripheral Aerobic Blood Culture - Pending 01/12/19 03:40 Blood - Peripheral Anaerobic Blood Culture - Pending 01/06/19 23:26 Blood - Peripheral Aerobic Blood Culture - Final No growth in 5 days 01/06/19 23:26 Blood - Peripheral Anaerobic Blood Culture - Final No growth in 5 days Lab - Hematology Results 01/10/19 01/11/19 01/12/19 11:56 10:51 03:40 WBC 9.8 12.8 H RBC 4.50 4.15 L Hgb 12.5 L 13.7 12.6 L Hct 36.9 L 40.0 37.5 L MCV 88.8 90.5 MCH 30.4 30.4 MCHC 34.3 33.5 RDW 15.2 15.1 Plt Count 327 336 MPV 7.6 7.2 Prelim Diff (Auto) Manual diff required Neut % (Auto) 74.9 H Lymph % (Auto) 14.2 [place] % (Auto) 8.9 H Eos % (Auto) 1.6 Baso % (Auto) 0.4 Neut # (Auto) 7.3 Lymph # (Auto) 1.4 [place] # (Auto) 0.9 Eos # (Auto) 0.2 Baso # (Auto) 0.0 WBC Differential . Manual diff final Seg Neuts % (Manual) 82 H Band Neuts % (Manual) 7 H Lymphocytes % (Manual) 5 L Monocytes % (Manual) 6 Abs Neuts (Manual) 11.4 H Differential Comment Auto diff final . Platelet Estimate Normal Platelet Morphology Normal RBC Morphology 01/12/19 05:03 WBC 12.6 H RBC 4.01 L Hgb 12.1 L Hct 35.9 L MCV 89.6 MCH 30.1 MCHC 33.6 RDW 15.1 Plt Count 302 MPV 7.4 Prelim Diff (Auto) Manual diff required Neut % (Auto) Lymph % (Auto) [place] % (Auto) Eos % (Auto) Baso % (Auto) Neut # (Auto) Lymph # (Auto) [place] # (Auto) Eos # (Auto) Baso # (Auto) WBC Differential Manual diff final Seg Neuts % (Manual) 80 H Band Neuts % (Manual) 10 H Lymphocytes % (Manual) 4 L Monocytes % (Manual) 6 Abs Neuts (Manual) 11.3 H Differential Comment . Platelet Estimate Normal Platelet Morphology Normal RBC Morphology Normal Lab - Chemistry Results 01/11/19 01/12/19 01/12/19 10:51 00:10 03:40 Sodium 141 Potassium 4.1 Chloride 108 H Carbon Dioxide 23.5 Anion Gap 10 BUN 30 H Creatinine 1.24 Estimated GFR 55 L Random Glucose 120 H Lactic Acid 3.7 H 3.4 H Calcium 8.7 Total Bilirubin AST ALT Alkaline Phosphatase Total Protein Albumin 01/12/19 01/12/19 05:03 11:21 Sodium 145 Potassium 4.0 Chloride 113 H Carbon Dioxide 22.8 Anion Gap 9 BUN 34 H Creatinine 1.45 H Estimated GFR 46 L Random Glucose 130 H Lactic Acid 1.8 Calcium 7.9 L D Total Bilirubin 0.9 AST 39 H ALT 41 Alkaline Phosphatase 302 H Total Protein 5.4 L Albumin 2.0 L Imaging: ITS Impressions Abdomen/Pelvis CT 01/06/19 00:00 CONCLUSION: 1. Mild right-sided hydroureteronephrosis extending to the UV junction without radiopaque renal calculi. 2. Bladder is completely decompressed secondary to Galvez catheter with a 1 cm calcified density adjacent to the Galvez balloon in the bladder which may reflect a bladder calculus. 3. Air within the bladder likely due to catheterization. 4. Persistent diffuse sclerosis and expansion of the right ilium, acetabulum, coccyx and pubic rami with new focal sclerosis involving the posterior right L5 vertebral body and left ilium consistent with progressive metastatic disease in this patient with history of prostate CA. 5. Additional stable ancillary findings, as above. Liver Ultrasound 01/07/19 00:00 CONCLUSION: 1. Minimal increase in echogenicity of the liver without mass or hydronephrosis. 2. There is no ductal dilatation Abdomen X-Ray 01/11/19 00:00 CONCLUSION: Mild prominence of small bowel loops significantly decreased in prominence from previous study. Chest X-Ray 01/11/19 00:00 CONCLUSION: Mild bilateral infiltrates Physical Exam: GENERAL: awake and alert, not in respiratory distress. SKIN: Cool and dry. No generalized rash EYES: [place] conjunctiva. No petechia or hemorrhage. No scleral icterus. No injection or drainage. EARS, NOSE AND THROAT: Mucous membranes pink and moist. NGT to msuction NECK: Trachea midline. Supple and not tender, no meningeal signs CARDIOVASCULAR: Regular rate and rhythm. No murmurs, rubs or gallops heard RESPIRATORY: Clear to auscultation. Breath sounds equal bilaterally. No rales , wheezing or rhonchi ABDOMEN: Distended abdomen, with diffuse tenderness. EXTREMITIES: No clubbing, cyanosis, or edema. No calf tenderness. : Galvez catheter in place, urine with some brown sediment, getting CBI. NEUROLOGICAL: Non-focal. PSYCHIATRIC: calm and cooperative. LINE: No evidence of infection Assessment and Plan - Plan IMpression Possible sepsis due to UTI, better Acute Pyelonephritis, with gross hematuria, has hydroureteronephrosis on R PSAE infection UTI Hemorrhagic cystitis, better Hx prostate CA with bone mets Acute Renal insufficiency, improving Itching with PCN Vomiting, abdominal distension Hypoxemia, ?fluid Recommendation Continue Levaquin IV as PSAE [place] sensitive. - having vomiting, so will keep IV for now Monitor progress To get CT A/P Will follow D/W DEBBIE
--- NOTE | 2019-01-12 13:39 | CT ---
EXAM DATE: 01/12/2019 1:28 PM EST AGE/SEX: 83 years / Male INDICATIONS: Abdominal distention. CLINICAL DATA: This is the patient's initial encounter. Patient reports that signs and symptoms have been present for 1 day and indicates a pain score of 5/10. MEDICAL/SURGICAL HISTORY: Hypertension. Carcinoma, prostatic. Carcinoma, bone. Cholecystectom y. Appendectomy. Prostatectomy. ORAL CONTRAST: Partial prescribed oral contrast ingested. RADIATION DOSE: 7.24 CTDI (mGy) [place] [facility] [place]AST[place] 01/[place]/2019. . TECHNIQUE: Multiple contiguous axial images were obtained through the abdomen and pelvis following b olus infusion of 95 ml Omnipaque 350 (iohexol) nonionic water-soluble contrast as a single exam dos e. Partial prescribed oral contrast ingested. Using automated exposure control and adjustment of the mA and/or kV according to patient size, radiation dose was kept as low as reasonably achievable to o btain optimal diagnostic quality images. DICOM format image data is available electronically for rev iew and comparison. FINDINGS: Lower Lungs: There are small bilateral pleural effusions with consolidation in both posterior lung ba ses. Liver: The liver has a mildly inhomogeneous density without space-occupying lesion. There is no dilat ion of the biliary tree. There is a small amount of ascitic fluid surrounding the liver. Spleen: Homogeneous density without enlargement. Pancreas: Unremarkable without mass or calcification. Kidneys: Normal in size and shape. No evidence of mass or hydronephrosis. Adrenal Glands: Unremarkable. Aorta: The aorta and proximal iliac vessels are grossly unremarkable without aneurysmal dilation. Bowel/Mesentery: No oral contrast was given limiting the sensitivity examination. There is an abnorm al bowel gas pattern with multiple loops of borderline dilated air-containing small bowel with multip le air-fluid levels. Small bowel measures up to approximately 3.7 cm in diameter. The stomach is mild ly distended with large air-fluid level. A nasogastric tube is in place. The distal most portion of t he ileum is decompressed. Colon is decompressed as well. There is an apparent transition zone in the distal small bowel in the right lower quadrant best seen on coronal image #61. There is no focal mass in this region. There is no free air. Abdominal Wall: Intact. Retroperitoneum: No evidence of adenopathy in the retrocrural, para-aortic, or deep pelvic regions. Bladder: A Galvez catheter is present in the bladder is decompressed. Reproductive Organs: Penile implant is present. [place] is located in the anterior lower pelvis. Inguinal: The inguinal region is unremarkable without evidence of adenopathy. Bony Structures: The right ilium and ischium which remains sclerotic and thickened. There is a simil ar finding involving the left pubic rami. This is stable. CONCLUSION: 1. Abnormal bowel gas pattern with multiple loops of borderline dilated air-containing small bowel w ith multiple air-fluid levels. The distal most portion of the small bowel and colon are decompressed. The findings of concern for distal small bowel obstruction. 2. Small bilateral pleural effusions and consolidation both lung bases. 3. Stable appearance of the right ilium and ischium with sclerosis and thickening. This may represen t pagetoid change. Metastatic prostate cancer could have a similar appearance. Electronically signed by: Tino Hall MD Board Certified Radiologist 01/12/2019 1:38 PM EST
--- NOTE | 2019-01-12 14:06 | P.PNADD ---
Addendum to Inpatient Note Reason for Addendum: Additional Documentation Additional information: Patient seen this afternoon with Dr. Daniels while laying comfortably in bed. Currently on 3.5L oxygen [place]. Patient denies any pain currently, however did endorse a different kind of stomach pain from his previous bladder pain during the physical examination. Reports feeling significant abdominal relief from the NGT. NGT canister contained around 1L of dark, bilious fluid at the time of the examination, will touch-base with patient's nurse on accurate fluid measurements. Vital Signs Temp Pulse Resp BP Pulse Ox 01/12/19 12:00 98.3 F 105 H 28 H 97 01/12/19 11:51 104 H 26 H 113/71 97 01/12/19 11:00 103 H 28 H 97 01/12/19 10:51 100 H 27 H 125/68 97 01/12/19 10:00 103 H 22 99 01/12/19 09:51 103 H 21 120/59 L 98 01/12/19 09:00 103 H 25 H 98 01/12/19 08:53 108 H 25 H 158/67 H 97 01/12/19 08:51 107 H 24 181/67 H 97 01/12/19 08:38 99 01/12/19 08:00 98.8 F 114 H 23 98 01/12/19 07:51 115 H 22 111/72 95 01/12/19 07:00 114 H 22 98 01/12/19 06:51 112 H 22 102/56 L 98 01/12/19 06:00 114 H 22 93 L 01/12/19 05:51 114 H 22 112/57 L 93 L 01/12/19 05:00 119 H 24 108/58 L 99 01/12/19 04:02 119 H 98/53 L 98 01/12/19 04:00 100.0 F H 120 H 28 H 98 01/12/19 03:09 119 H 87/56 L 98 01/12/19 03:00 119 H 28 H 96 01/12/19 02:39 115 H 27 H 131/61 97 01/12/19 02:00 108 H 32 H 111/58 L 94 L 01/12/19 01:45 131 H 122/61 97 01/12/19 01:30 132 H 32 H 119/62 97 01/12/19 01:15 100.2 F H 134 H 113/61 98 01/12/19 01:00 140 H 34 H 109/61 94 L 01/12/19 00:45 147 H 34 H 138/62 97 01/12/19 00:43 149 H 34 H 134/82 87 L 01/12/19 00:41 144 H 34 H 92 L 01/12/19 00:20 100.3 F H 144 H 32 H 149/75 H 94 L 01/12/19 00:19 93 L 01/11/19 23:00 98.7 F 142 H 20 116/82 93 L 01/11/19 22:00 88 L 01/11/19 20:00 98.7 F 120 H 16 107/71 92 L 01/11/19 16:00 97.2 F L 117 H 16 117/80 95 Vital Signs: continued tachycardia and tachypnea, maintaining stable BP's CT Abd/Pelvis report showed findings concerning for a distal small bowel obstruction and small bilateral pleural effusions and consolidations. Will consult general surgery for distal SBO finding. Will continue antibiotic treatment for suspected hospital- acquired pneumonia, ID is also currently following. Abdomen/Pelvis CT 01/12/19 00:00 CONCLUSION: 1. Abnormal bowel gas pattern with multiple loops of borderline dilated air- containing small bowel with multiple air-fluid levels. The distal most portion of the small bowel and colon are decompressed. The findings of concern for distal small bowel obstruction. 2. Small bilateral pleural effusions and consolidation both lung bases. 3. Stable appearance of the right ilium and ischium with sclerosis and thickening. 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 Metastatic prostate cancer could have a similar appearance.
--- NOTE | 2019-01-12 15:35 | P.CONGS ---
[facility] Surgery Consult Note Consult date: 01/12/19 Reason for consult: other (Concern for small bowel obstruction) Requesting physician: Portia Daniels R2 Narrative: CONSULTATION NOTE FOR SURGICAL ATTENDING, DR. 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 The patient has been hospitalized now for several weeks between [place] and the [place]. The patient was in the [place] for hematuria. A Galvez catheter was placed. The patient was sent to inpatient rehab where he developed lower abdominal pain. He has been at [place] now for about 1 week being treated for a complicated urinary tract infection as well as pneumonia. The patient was transferred recently to the intensive surgical care unit for low oxygenation. The patient is currently on nasal cannula oxygen. Yesterday, the patient developed abdominal pain with associated nausea and vomiting. An NG tube was placed. 2200cc came out on insertion. The patient currently feels much better with the NG tube in place. A CT abdomen/pelvis with IV and PO contrast was attempted but the patient cannot tolerate having the NG tube clamped after contrast administration. Patient states his last bowel movement was several years ago. The CT abdomen/ pelvis showed abnormal gas pattern and air contained in the small bowel consistent with distal small bowel obstruction. A General Surgery consultation has been requested. 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 Thrombocytopenia - Surgical History Surgical History: Surgical History (Last Reviewed 01/13/19 @ 18:55 by Sai Condon MD) H/O removal of testicle History of cholecystectomy Hx of appendectomy Hx of radical prostatectomy - Social History I have reviewed the patient's Social History: Yes - Tobacco History Second Hand Smoke Exposure: No Tobacco Use In Past 30 Days: No Smoking Status: Never smoker - Alcohol History How Often Do You Have a Drink Containing Alcohol: 2 to 4 times a month - Substance Use History Substance History: No History of Abuse - Travel History Recent Travel in the [place] Within the Last 8 Weeks: No Recent Travel Out of the Country Within the Last 8 Weeks: No - Immunization History Tetanus Immunization: <5 Years Hx Influenza Vaccine This Season: Yes Medications and Allergies Allergies Allergy/AdvReac Type Severity Reaction Status Date / Time Penicillins Allergy Itching Verified 01/06/19 02:12 Home Medications Medication Instructions Recorded Confirmed Type Lactobacillus rhamnosus GG 2 BID 01/06/19 History [Culturelle] acetaminophen 650 PO Q4HR PRN 01/06/19 History aspirin [Aspirin Low Dose] 81 PO DAILY 01/06/19 History bisacodyl [Dulcolax (bisacodyl)] 10 WV DAILY PRN 01/06/19 History cyanocobalamin (vitamin B-12) 1,000 mcg PO DAILY 01/06/19 01/07/19 History enzalutamide [Xtandi] 160 mg PO DAILY 01/06/19 01/07/19 History magnesium hydroxide [Milk of 30 ml PO PRN 01/06/19 History Magnesia] metoprolol tartrate 12.5 PO BID 01/06/19 History pantoprazole [Protonix] 40 mg PO DAILY 01/06/19 01/07/19 History pravastatin 40 PO QPM 01/06/19 History prednisone 2.5 mg PO QPM 01/06/19 01/07/19 History prednisone 5 mg PO DAILY 01/06/19 01/07/19 History sodium phosphates [Fleet Enema] 118 ml WV PRN PRN 01/06/19 01/07/19 History tamsulosin 0.4 mg PO QPM 01/06/19 01/07/19 History docusate sodium 100 mg PO QPM 01/07/19 01/07/19 History ondansetron HCl [Zofran] 4 mg PO Q6HR PRN 01/07/19 01/07/19 History Active Medications: Active Medications Al Hydroxide/Mg Hydroxide (Milk Of Magnesia Liq) 30 ml PO Q12H PRN PRN Reason: Mild Constipation Last Admin: 01/11/19 04:52 Dose: 30 ml Bisacodyl (Dulcolax Supp) 10 mg RECTAL DAILY PRN PRN Reason: SEVERE CONSITIPATION Last Admin: 01/11/19 04:53 Dose: 10 mg Cyanocobalamin (Vitamin B12) 1,000 mcg PO DAILY [facility] Last Admin: 01/12/19 08:04 Dose: 1,000 mcg Potassium Chloride/Sodium Chloride (Ns + Kcl 20 Meq Inj) 1,000 mls @ 84 mls/hr IV.CONT .[id number] [facility] Last Admin: 01/12/19 06:14 Dose: Not Given Levofloxacin/Dextrose (Levaquin 750 Mg Premix Inj) 150 mls @ 100 mls/hr IV.SIG Q24HR [facility] Linezolid (Zyvox 600 Mg Premix) 300 mls @ 300 mls/hr IV.SIG Q12H [facility] Lactobacillus Acidophilus (Lactinex) 2 tab PO BID [facility] Last Admin: 01/12/19 08:05 Dose: 2 tab Lactulose (Lactulose Liq) 30 ml PO DAILY PRN PRN Reason: SEVERE CONSITIPATION Last Admin: 01/11/19 04:52 Dose: 30 ml Metoclopramide HCl (Reglan Inj) 5 mg IM Q8H PRN; Protocol PRN Reason: nausea/vomiting Metoprolol Tartrate (Lopressor) 12.5 mg PO BID [facility] Last Admin: 01/12/19 08:05 Dose: 12.5 mg Mirtazapine (Remeron) 15 mg PO HS [facility] Last Admin: 01/11/19 21:28 Dose: 15 mg Morphine Sulfate (Morphine Inj) 3 mg IV.PUSH Q3H PRN PRN Reason: BREAKTHROUGH PAIN Last Admin: 01/10/19 08:33 Dose: 3 mg Naloxone HCl (Narcan Inj) 0.4 mg IV.PUSH UNSCH PRN PRN Reason: SEE LABEL COMMENTS Ondansetron HCl (Zofran Inj) 4 mg IV.PUSH Q6H PRN PRN Reason: NAUSEA OR VOMITING Last Admin: 01/11/19 21:27 Dose: 4 mg Oxybutynin Chloride (Ditropan) 5 mg PO TID [facility] Last Admin: 01/12/19 08:06 Dose: 5 mg Oxycodone/Acetaminophen (Percocet 10/325 Mg) 1 tab PO Q6H PRN PRN Reason: PAIN SCALE 6 TO 10 Pantoprazole Sodium (Protonix) 40 mg PO DAILY [facility] Last Admin: 01/12/19 08:05 Dose: 40 mg Pt Own Xtandi 160 Mg 0 each PO DAILY [facility] Last Admin: 01/12/19 10:25 Dose: 1 each Phenazopyridine HCl (Pyridium) 100 mg PO Q8H PRN PRN Reason: dysuria Last Admin: 01/09/19 22:49 Dose: 100 mg Pravastatin Sodium (Pravachol) 40 mg PO HS [facility] Last Admin: 01/11/19 21:28 Dose: 40 mg Senna/Docusate Sodium (Nannette-Colace) 1 tab PO BID [facility] Last Admin: 01/11/19 21:40 Dose: Not Given Sennosides (Senokot) 17.2 mg PO Q12H PRN PRN Reason: Moderate Constipation Last Admin: 01/11/19 04:52 Dose: 17.2 mg Sodium Chloride (Ns Flush) 2 ml IV.FLUSH BID [facility] Last Admin: 01/12/19 10:26 Dose: 2 ml Sodium Chloride (Ns Flush) 2 ml IV.FLUSH PRN PRN PRN Reason: FLUSH AFTER USING IV ACCESS Last Admin: 01/10/19 22:22 Dose: 2 ml Tamsulosin HCl (Flomax) 0.4 mg PO QPM [facility] Last Admin: 01/11/19 17:56 Dose: 0.4 mg Exam Vital signs: Vital Signs 01/11/19 16:00 01/11/19 20:00 01/11/19 22:00 Temperature 97.2 F L 98.7 F Pulse Rate 117 H 120 H Respiratory Rate 16 16 Blood Pressure 117/80 107/71 Pulse Oximetry 95 92 L 88 L 01/11/19 23:00 01/12/19 00:19 01/12/19 00:20 Temperature 98.7 F 100.3 F H Pulse Rate 142 H 144 H Respiratory Rate 20 32 H Blood Pressure 116/82 149/75 H Pulse Oximetry 93 L 93 L 94 L 01/12/19 00:41 01/12/19 00:43 01/12/19 00:45 Temperature Pulse Rate 144 H 149 H 147 H Respiratory Rate 34 H 34 H 34 H Blood Pressure 134/82 138/62 Pulse Oximetry 92 L 87 L 97 01/12/19 01:00 01/12/19 01:15 01/12/19 01:30 Temperature 100.2 F H Pulse Rate 140 H 134 H 132 H Respiratory Rate 34 H 32 H Blood Pressure 109/61 113/61 119/62 Pulse Oximetry 94 L 98 97 01/12/19 01:45 01/12/19 02:00 01/12/19 02:39 Temperature Pulse Rate 131 H 108 H 115 H Respiratory Rate 32 H 27 H Blood Pressure 122/61 111/58 L 131/61 Pulse Oximetry 97 94 L 97 01/12/19 03:00 01/12/19 03:09 01/12/19 04:00 Temperature 100.0 F H Pulse Rate 119 H 119 H 120 H Respiratory Rate 28 H 28 H Blood Pressure 87/56 L Pulse Oximetry 96 98 98 01/12/19 04:02 01/12/19 05:00 01/12/19 05:51 Temperature Pulse Rate 119 H 119 H 114 H Respiratory Rate 24 22 Blood Pressure 98/53 L 108/58 L 112/57 L Pulse Oximetry 98 99 93 L 01/12/19 06:00 01/12/19 06:51 01/12/19 07:00 Temperature Pulse Rate 114 H 112 H 114 H Respiratory Rate 22 22 22 Blood Pressure 102/56 L Pulse Oximetry 93 L 98 98 01/12/19 07:51 01/12/19 08:00 01/12/19 08:38 Temperature 98.8 F Pulse Rate 115 H 114 H Respiratory Rate 22 23 Blood Pressure 111/72 Pulse Oximetry 95 98 99 01/12/19 08:51 01/12/19 08:53 02/13/19 09:00 Temperature Pulse Rate 107 H 108 H 103 H Respiratory Rate 24 25 H 25 H Blood Pressure 181/67 H 158/67 H Pulse Oximetry 97 97 98 01/12/19 09:51 01/12/19 10:00 01/12/19 10:51 Temperature Pulse Rate 103 H 103 H 100 H Respiratory Rate 21 22 27 H Blood Pressure 120/59 L 125/68 Pulse Oximetry 98 99 97 01/12/19 11:00 01/12/19 11:51 01/12/19 12:00 Temperature 98.3 F Pulse Rate 103 H 104 H 105 H Respiratory Rate 28 H 26 H 28 H Blood Pressure 113/71 Pulse Oximetry 97 97 97 Intake & Output 01/11/19 01/12/19 01/12/19 18:59 06:59 18:59 Intake Total 720 / 720 2200 / 2200 300 / 300 Output Total 1600 / 1600 Balance 720 / 720 600 / 600 300 / 300 Weight 81.2 kg Intake: IV 2200 / 2200 300 / 300 NS + KCl 20 mEq Inj 1,000 ML @ 1000 / 1000 84 mls/hr IV.CONT .[id number] [facility] Rx#:[id number] Azactam Inj 2 GM In NS Inj 100 100 / 100 ML @ 200 mls/hr IV.SIG Q8H [facility] Rx#:[id number] Zyvox 600 mg Premix 300 ML @ 300 / 300 300 mls/hr IV.SIG Q12H [facility] Rx#: [id number] NS Inj 500 ML @ 1000 mls/hr IV. 1000 / 1000 SIG BOLUS [facility] Rx#:[id number] Flagyl 500 MG Inj 100 ML @ 100 100 / 100 mls/hr IV.SIG Q8H [facility] Rx#: [id number] Oral 720 / 720 0 / 0 Output: Urine Amount (Catheter) 1600 / 1600 Indwelling Urethral Catheter 1600 / 1600 Other: Post Void Residual 2,775 Bladder Irrigation Fluid - Amount Instilled Indwelling Urethral Catheter 300 Date of Last Bowel Movement 01/04/19 01/12/19 01/12/19 # Bowel Movements 2 # Incontinent Bowel Movements 1 Narrative: GENERAL: Very pleasant 83 year old male resting in bed in no acute distress. SKIN: Warm and dry. HEAD: Atraumatic. Normocephalic. EYES: Pupils equal and round. No scleral icterus. No injection or drainage. ENT: No nasal bleeding or discharge. Mucous membranes pink and moist. NECK: Trachea midline. CARDIOVASCULAR: Regular rate and rhythm. RESPIRATORY: No accessory muscle use. Clear to auscultation. Breath sounds equal bilaterally. GASTROINTESTINAL: Abdomen soft, distended. Tenderness throughout to palpation. Very faint hypoactive bowel sounds. Low midline incision---well healed. Very faint RLQ scar---well healed. MUSCULOSKELETAL: Extremities without clubbing, cyanosis, or edema. No obvious deformities. NEUROLOGICAL: Awake and alert. No obvious cranial nerve deficits. Motor grossly within normal limits. Five out of 5 muscle strength in the arms and legs. Normal speech. PSYCHIATRIC: Appropriate mood and affect; insight and judgment normal. Results - Labs 01/13/19 03:47 01/13/19 03:47 Laboratory Results - last 24 hr 01/11/19 01/12/19 01/12/19 23:17 00:10 01:00 WBC RBC Hgb Hct MCV MCH MCHC RDW Plt Count MPV Prelim Diff (Auto) WBC Differential Seg Neuts % (Manual) Band Neuts % (Manual) Lymphocytes % (Manual) Monocytes % (Manual) Abs Neuts (Manual) Differential Comment Platelet Estimate Platelet Morphology RBC Morphology Puncture Site Left radial Patient Temperature 98.6 O2 Saturation 85 L* ABG pH 7.54 H* ABG pCO2 22 L* ABG pO2 49 L* ABG HCO3 19 L ABG O2 Content 16.4 ABG Base Excess -3.8 L ABG Methemoglobin 1.3 Bari Test Present Hemoglobin 13.8 Carboxyhemoglobin 1.3 Inspired O2 21 Critical Value Yes Sodium Potassium Chloride Carbon Dioxide Anion Gap BUN Creatinine Estimated GFR Random Glucose Lactic Acid 3.7 H Calcium Total Bilirubin AST ALT Alkaline Phosphatase Total Protein Albumin Procalcitonin Nasal Screen MRSA (PCR) Not detected 01/12/19 01/12/19 01/12/19 03:40 03:40 05:03 WBC 12.8 H 12.6 H RBC 4.15 L 4.01 L Hgb 12.6 L 12.1 L Hct 37.5 L 35.9 L MCV 90.5 89.6 MCH 30.4 30.1 MCHC 33.5 33.6 RDW 15.1 15.1 Plt Count 336 302 MPV 7.2 7.4 Prelim Diff (Auto) Manual diff required Manual diff required WBC Differential Manual diff final Manual diff final Seg Neuts % (Manual) 82 H 80 H Band Neuts % (Manual) 7 H 10 H Lymphocytes % (Manual) 5 L 4 L Monocytes % (Manual) 6 6 Abs Neuts (Manual) 11.4 H 11.3 H Differential Comment . . Platelet Estimate Normal Normal Platelet Morphology Normal Normal RBC Morphology Normal Puncture Site Patient Temperature O2 Saturation ABG pH ABG pCO2 ABG pO2 ABG HCO3 ABG O2 Content ABG Base Excess ABG Methemoglobin Bari Test Hemoglobin Carboxyhemoglobin Inspired O2 Critical Value Sodium Potassium Chloride Carbon Dioxide Anion Gap BUN Creatinine Estimated GFR Random Glucose Lactic Acid 3.4 H Calcium Total Bilirubin AST ALT Alkaline Phosphatase Total Protein Albumin Procalcitonin Nasal Screen MRSA (PCR) 01/12/19 01/12/19 01/12/19 05:03 05:03 11:21 WBC RBC Hgb Hct MCV MCH MCHC RDW Plt Count MPV Prelim Diff (Auto) WBC Differential Seg Neuts % (Manual) Band Neuts % (Manual) Lymphocytes % (Manual) Monocytes % (Manual) Abs Neuts (Manual) Differential Comment Platelet Estimate Platelet Morphology RBC Morphology Puncture Site Patient Temperature O2 Saturation ABG pH ABG pCO2 ABG pO2 ABG HCO3 ABG O2 Content ABG Base Excess ABG Methemoglobin Bari Test Hemoglobin Carboxyhemoglobin Inspired O2 Critical Value Sodium 145 Potassium 4.0 Chloride 113 H Carbon Dioxide 22.8 Anion Gap 9 BUN 34 H Creatinine 1.45 H Estimated GFR 46 L Random Glucose 130 H Lactic Acid 1.8 Calcium 7.9 L D Total Bilirubin 0.9 AST 39 H ALT 41 Alkaline Phosphatase 302 H Total Protein 5.4 L Albumin 2.0 L Procalcitonin 1.09 H Nasal Screen MRSA (PCR) - Imaging Imaging: ITS Impressions Liver Ultrasound 01/07/19 00:00 CONCLUSION: 1. Minimal increase in echogenicity of the liver without mass or hydronephrosis. 2. There is no ductal dilatation Abdomen X-Ray 01/11/19 00:00 CONCLUSION: Mild prominence of small bowel loops significantly decreased in prominence from previous study. Chest X-Ray 01/11/19 00:00 CONCLUSION: Mild bilateral infiltrates Abdomen/Pelvis CT 01/12/19 00:00 CONCLUSION: 1. Abnormal bowel gas pattern with multiple loops of borderline dilated air- containing small bowel with multiple air-fluid levels. The distal most portion of the small bowel and colon are decompressed. The findings of concern for distal small bowel obstruction. 2. Small bilateral pleural effusions and consolidation both lung bases. 3. Stable appearance of the right ilium and ischium with sclerosis and thickening. 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 Metastatic prostate cancer could have a similar appearance. CT scan - abdomen: report reviewed, image reviewed CT scan - pelvis: report reviewed, image reviewed US - abdomen: report reviewed, image reviewed Assessment and Plan - Assessment (1) Acute hemorrhagic cystitis Code(s): N30.01 - Acute cystitis with hematuria Status: Acute (2) UTI (urinary tract infection) Code(s): N39.0 - Urinary tract infection, site not specified Status: Acute (3) Complicated urinary tract infection Code(s): N39.0 - Urinary tract infection, site not specified Status: Acute - Plan 83 year old male with recurrent prostate cancer; UTI; pneumonia; radiological findings of SBO -Reviewed CT -Recommend continuing NGT to [facility] -Monitor I/O closely as GI loss is high -Discussed with patient SBO may be secondary to adhesions vs infection (UTI) -ID following -Would recommend non operative treatment for now; will closely monitor -KUB in AM -I attempted to call the patient's [phone] but no answer -Thank you for this consult; We will continue to follow Discussed Condition With: Dr. Taurus Rutherford - Attending Attestation NOTE FOR SURGICAL ATTENDING, DR. SAI CONDON I agree with above assessment and plan. The exam, history, and the medical decision-making described in the above note were completed with the assistance of the mid-level provider. I reviewed and agree with the findings presented. I attest that I had a [id number] encounter with the patient on the same day, and personally performed and documented my assessment and findings in the medical record. The following services were provided during this hospital visit: Chart data review, vital sign assessments/reviewing monitor data Review of consultations notes if present. Medication orders/review and/or management Ordering and/or reviewing lab tests Ordering and/or interpreting/reviewing x-rays and/or diagnostic studies Care of the patient and discussion of the patient with the care team Documentation time To help prompt me to consider important information that might be impacting today's encounter and assessment, Information from prior notes written by myself or my colleagues may have been "brought forward/copy and pasted" into today's note.
--- NOTE | 2019-01-12 16:39 | XR ---
EXAM DATE: 01/12/2019 4:35 PM EST AGE/SEX: 83 years / Male INDICATIONS: Small bowel obstruction. CLINICAL DATA: This is the patient's subsequent encounter. Patient reports that signs and symptoms h ave been present for 2 days and indicates a pain score of 0/10. MEDICAL/SURGICAL HISTORY: . Hypertension. Carcinoma, prostatic. Carcinoma, bone. . Cholecyst ectomy. Appendectomy. Prostatectomy. COMPAR[place]: [facility] [place], [place]/11/2019. . FINDINGS: 2 AP supine views of the abdomen. Multiple air-filled distended loops of small bowel again seen max g with air-filled distended transverse colon. Small bowel distention is slightly increased when drake red to the prior study of 01/11/2019. Diffuse bony sclerosis of the right side of the pelvis suggestin g bony metastatic disease. Nasogastric tube is in place with the tip in the stomach. CONCLUSION: Air filled distention of small bowel and colon likely representing ileus. Small bowel distention has slightly increased. Electronically signed by: Tan Perales MD Board Certified Radiologist 01/12/2019 4:38 PM EST
[2019-01-12] MEDS: Mirtazapine 15 MG Tablet PO SCH (20:15)
--- NOTE | 2019-01-12 20:20 | ECG ---
Date Performed: 01/11/2019 Time Performed: 23:21:48 PTAGE: 83 years EKG: sinus tachycardia. Low QRS voltages in precordial leads Borderline ECG PREVIOUS TRACING : 01/07/2019 07.29 Since the previous tracing, no significant change noted DOCTOR: Gamaliel Gooden Interpretating Date/Time 01/12/2019 20:19:05
[2019-01-13 04:38] LABS: Baso % (Auto) 0.5 % (0.0-2.0); Eos # (Auto) 0.3 th/mm3 (0.0-0.4); Hematocrit 35.7 % (39.0-51.0); Lymph # (Auto) 0.9 th/mm3 (1.0-4.8); Lymph % (Auto) 10.2 % (9.0-44.0); Mean Corpuscular HGB Conc 33.5 % (32.0-36.0); Mean Corpuscular Hemoglobin 30.1 pg (27.0-34.0); Mean Corpuscular Volume 89.6 fL (80.0-100.0); Mean Platelet Volume 7.4 fL (7.0-11.0); Mono # (Auto) 0.6 th/mm3 (0.0-0.9); Mono % (Auto) 6.7 % (0.0-8.0); Neut # (Auto) 6.8 th/mm3 (1.8-7.7); Neut % (Auto) 79.6 % (16.0-70.0); Platelet Count 327 th/mm3 (150-450); Red Blood Count 3.99 mil/mm3 (4.50-5.90); Red Cell Distribution Width 15.6 % (11.6-17.2); White Blood Count 8.6 th/mm3 (4.0-11.0)
[2019-01-13 04:45] LABS: Alanine Aminotransferase 32 U/L (12-78); Albumin 1.9 g/dL (3.4-5.0); Anion Gap 9 meq/L (5-15); Aspartate Aminotransferase 22 U/L (15-37); Blood Urea Nitrogen 31 mg/dL (7-18); Calcium 7.8 mg/dL (8.5-10.1); Chloride 114 meq/L (98-107); Glomerular Filtration Rate 59 mL/min (>89); Glucose,Random 89 mg/dL (74-106); Potassium 4.2 meq/L (3.5-5.1); Sodium 145 meq/L (136-145)
[2019-01-13 04:47] LABS: Alkaline Phosphatase 243 U/L (45-117); Total Protein 5.6 g/dL (6.4-8.2)
--- NOTE | 2019-01-13 08:39 | XR ---
EXAM DATE: 01/13/2019 8:23 AM EST AGE/SEX: 83 years / Male INDICATIONS: Vomiting and left sided abdominal pain. CLINICAL DATA: This is the patient's subsequent encounter. Patient reports that signs and symptoms h ave been present for 1 week and indicates a pain score of 5/10. MEDICAL/SURGICAL HISTORY: . Hypertension. Carcinoma, prostatic. Carcinoma, bone. . Cholecyste ctomy. Appendectomy. Prostatectomy. [place] [facility] [place]. . FINDINGS: 2 supine views of the abdomen show slight worsening in the gaseous distention of the small bowel rel ative the prior study. The colon is gas-filled but not dilated. Nasogastric tube within a decompresse d stomach. Cholecystectomy clips within the right upper quadrant. CONCLUSION: Slight worsening in the gaseous distention of the small bowel. The pattern is more suggestive of a pa rtial distal small bowel obstruction. Electronically signed by: Christopher Saldana MD Board Certified Radiologist 01/13/2019 8:38 AM EST
--- NOTE | 2019-01-13 09:16 | P.PNFP ---
Subjective Interval history: No acute events overnight Patient was examined while lying comfortably in bed with nasal cannula 2 L Patient reports mild abdominal pain and nasal irritation from the NG tube. Patient also reports no appetite, mild nausea, and no vomiting. Denies shortness of breath, cough, chest pain, leg tenderness. Denies flatus and any bowel movement. Patient said that he will try to call his (Parul, ), since multiple individuals have tried contacting her with no success. <Ng,Prerna - 01/13/19 09:39> Results - Labs Result diagrams: 01/13/19 03:47 01/13/19 03:47 <VeyIngrid - 01/13/19 21:05> Abnormal lab results 01/13/19 01/13/19 Range/Units 03:47 03:47 RBC 3.99 L (4.50-5.90) mil/mm3 Hgb 12.0 L (13.0-17.0) gm/dL Hct 35.7 L (39.0-51.0) % Neut % (Auto) 79.6 H (16.0-70.0) % Lymph # (Auto) 0.9 L (1.0-4.8) th/mm3 Chloride 114 H (98-107) meq/L BUN 31 H (7-18) mg/dL Estimated GFR 59 L (>89) mL/min Calcium 7.8 L (8.5-10.1) mg/dL Alkaline Phosphatase 243 H (45-117) U/L Total Protein 5.6 L (6.4-8.2) g/dL Albumin 1.9 L (3.4-5.0) g/dL Short CBC 01/13/19 Range/Units 03:47 WBC 8.6 (4.0-11.0) th/mm3 Hgb 12.0 L (13.0-17.0) gm/dL Hct 35.7 L (39.0-51.0) % Plt Count 327 (150-450) th/mm3 BMP 01/13/19 03:47 Sodium 145 Potassium 4.2 Chloride 114 H Carbon Dioxide 22.0 BUN 31 H Creatinine 1.18 Calcium 7.8 L Liver Function 01/13/19 Range/Units 03:47 Total Bilirubin 0.6 (0.2-1.0) mg/dL AST 22 (15-37) U/L ALT 32 (12-78) U/L Alkaline Phosphatase 243 H (45-117) U/L Albumin 1.9 L (3.4-5.0) g/dL <Ingrid Workman - 01/13/19 21:05> Abnormal lab results 01/12/19 01/13/19 01/13/19 Range/Units 05:03 03:47 03:47 RBC 3.99 L (4.50-5.90) mil/mm3 Hgb 12.0 L (13.0-17.0) gm/dL Hct 35.7 L (39.0-51.0) % Neut % (Auto) 79.6 H (16.0-70.0) % Lymph # (Auto) 0.9 L (1.0-4.8) th/mm3 Chloride 114 H (98-107) meq/L BUN 31 H (7-18) mg/dL Estimated GFR 59 L (>89) mL/min Calcium 7.8 L (8.5-10.1) mg/dL Alkaline Phosphatase 243 H (45-117) U/L Total Protein 5.6 L (6.4-8.2) g/dL Albumin 1.9 L (3.4-5.0) g/dL Procalcitonin 1.09 H (0.00-0.07) ng/mL Short CBC 01/13/19 Range/Units 03:47 WBC 8.6 (4.0-11.0) th/mm3 Hgb 12.0 L (13.0-17.0) gm/dL Hct 35.7 L (39.0-51.0) % Plt Count 327 (150-450) th/mm3 [facility] 01/13/19 03:47 Sodium 145 Potassium 4.2 Chloride 114 H Carbon Dioxide 22.0 BUN 31 H Creatinine 1.18 Calcium 7.8 L Liver Function 01/13/19 Range/Units 03:47 Total Bilirubin 0.6 (0.2-1.0) mg/dL AST 22 (15-37) U/L ALT 32 (12-78) U/L Alkaline Phosphatase 243 H (45-117) U/L Albumin 1.9 L (3.4-5.0) g/dL <Prerna Jesus - 01/13/19 09:39> - Imaging Impressions Abdomen X-Ray 01/13/19 00:00 CONCLUSION: Slight worsening in the gaseous distention of the small bowel. The pattern is more suggestive of a partial distal small bowel obstruction. <Ingrid Workman - 01/13/19 21:05> Impressions Abdomen X-Ray 01/12/19 00:00 CONCLUSION: Air filled distention of small bowel and colon likely representing ileus. Small bowel distention has slightly increased. Abdomen/Pelvis CT 01/12/19 00:00 CONCLUSION: 1. Abnormal bowel gas pattern with multiple loops of borderline dilated air- containing small bowel with multiple air-fluid levels. The distal most portion of the small bowel and colon are decompressed. The findings of concern for distal small bowel obstruction. 2. Small bilateral pleural effusions and consolidation both lung bases. 3. Stable appearance of the right ilium and ischium with sclerosis and thickening. 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 Metastatic prostate cancer could have a similar appearance. Abdomen X-Ray 01/13/19 00:00 CONCLUSION: Slight worsening in the gaseous distention of the small bowel. The pattern is more suggestive of a partial distal small bowel obstruction. <Prerna Jesus - 01/13/19 09:16> Physical Exam Vital signs: Vital Signs 01/12/19 21:51 01/12/19 22:00 01/12/19 22:10 Temperature Pulse Rate 98 H 99 H 99 H Respiratory Rate 18 18 Blood Pressure 122/59 L Pulse Oximetry 98 98 01/12/19 22:51 01/12/19 23:00 01/12/19 23:51 Temperature Pulse Rate 101 H 103 H 103 H Respiratory Rate 21 19 20 Blood Pressure 120/56 L 120/58 L Pulse Oximetry 97 97 97 01/13/19 00:00 01/13/19 00:15 01/13/19 00:51 Temperature 98.6 F Pulse Rate 103 H 104 H 105 H Respiratory Rate 18 17 Blood Pressure 123/58 L Pulse Oximetry 97 97 01/13/19 01:00 01/13/19 01:51 01/13/19 02:00 Temperature Pulse Rate 103 H 106 H 106 H Respiratory Rate 17 20 20 Blood Pressure 117/62 Pulse Oximetry 97 97 95 01/13/19 02:51 01/13/19 03:00 02/14/19 03:51 Temperature Pulse Rate 102 H 104 H 105 H Respiratory Rate 17 17 18 Blood Pressure 126/65 114/61 Pulse Oximetry 97 98 98 01/13/19 04:00 01/13/19 04:15 01/13/19 04:51 Temperature 97.8 F Pulse Rate 103 H 105 H 103 H Respiratory Rate 18 16 Blood Pressure 127/63 Pulse Oximetry 98 98 01/13/19 05:00 01/13/19 05:51 01/13/19 06:00 Temperature Pulse Rate 102 H 103 H 103 H Respiratory Rate 18 18 18 Blood Pressure 116/58 L Pulse Oximetry 98 97 98 01/13/19 06:05 01/13/19 06:51 01/13/19 07:00 Temperature Pulse Rate 105 H 103 H 103 H Respiratory Rate 18 17 Blood Pressure 133/69 Pulse Oximetry 98 99 01/13/19 07:29 01/13/19 07:51 01/13/19 08:00 Temperature 97.9 F Pulse Rate 103 H 103 H Respiratory Rate 23 24 Blood Pressure 179/81 H Pulse Oximetry 99 96 98 01/13/19 08:51 01/13/19 09:00 01/13/19 09:51 Temperature Pulse Rate 103 H 106 H 103 H Respiratory Rate 17 27 H 24 Blood Pressure 122/57 L 131/60 Pulse Oximetry 98 97 98 01/13/19 10:00 01/13/19 10:29 01/13/19 11:00 Temperature Pulse Rate 101 H 106 H 107 H Respiratory Rate 21 29 H Blood Pressure Pulse Oximetry 97 93 L 01/13/19 11:12 01/13/19 11:51 01/13/19 12:00 Temperature 97.9 F Pulse Rate 107 H 108 H 110 H Respiratory Rate 45 H 22 21 Blood Pressure 126/60 117/66 Pulse Oximetry 94 L 95 95 01/13/19 12:51 01/13/19 13:00 01/13/19 13:51 Temperature Pulse Rate 105 H 106 H 101 H Respiratory Rate 18 18 19 Blood Pressure 104/57 L 114/59 L Pulse Oximetry 95 95 95 01/13/19 14:00 01/13/19 14:22 01/13/19 14:51 Temperature Pulse Rate 101 H 106 H 100 H Respiratory Rate 18 19 Blood Pressure 103/59 L Pulse Oximetry 95 94 L 01/13/19 15:00 01/13/19 16:00 01/13/19 16:51 Temperature 98.1 F Pulse Rate 100 H 102 H 100 H Respiratory Rate 20 24 21 Blood Pressure 111/63 Pulse Oximetry 95 95 96 01/13/19 17:00 01/13/19 17:51 01/13/19 18:00 Temperature Pulse Rate 101 H 98 H 100 H Respiratory Rate 21 25 H 22 Blood Pressure 133/67 Pulse Oximetry 95 95 95 01/13/19 20:26 Temperature Pulse Rate Respiratory Rate Blood Pressure Pulse Oximetry 95 Intake & Output 01/13/19 01/13/19 01/14/19 06:59 18:59 06:59 Intake Total 1451 / 1451 1149 / 1149 550 / 550 Output Total 900 / 900 1700 / 1700 Balance 551 / 551 -551 / -551 550 / 550 Weight 77.3 kg Intake: IV 1451 / 1451 1149 / 1149 550 / 550 NS + KCl 20 mEq Inj 1,000 ML @ 1151 / 1151 849 / 849 550 / 550 84 mls/hr IV.CONT .[id number] [facility] Rx#:[id number] Zyvox 600 mg Premix 300 ML @ 300 / 300 300 / 300 300 mls/hr IV.SIG Q12H [facility] Rx#: [id number] Oral 0 / 0 Output: Urine Amount (Catheter) 300 / 300 1000 / 1000 3-way Urethral 300 / 300 1000 / 1000 Gastric Drainage 600 / 600 700 / 700 Right Nare Nasogastric Tube 600 / 600 700 / 700 Other: Bladder Irrigation Fluid - Amount Instilled 3-way Urethral 1,200 500 Bladder Irrigation Fluid - Amount Drained 3-way Urethral 1,500 Date of Last Bowel Movement 01/12/19 01/12/19 <Ingrid Workman - 01/13/19 21:05> Vital Signs 01/12/19 09:51 01/12/19 10:00 01/12/19 10:51 Temperature Pulse Rate 103 H 103 H 100 H Respiratory Rate 21 22 27 H Blood Pressure 120/59 L 125/68 Pulse Oximetry 98 99 97 01/12/19 11:00 01/12/19 11:51 01/12/19 12:00 Temperature 98.3 F Pulse Rate 103 H 104 H 105 H Respiratory Rate 28 H 26 H 28 H Blood Pressure 113/71 Pulse Oximetry 97 97 97 01/12/19 12:51 01/12/19 13:00 01/12/19 13:51 Temperature Pulse Rate 108 H 107 H 111 H Respiratory Rate 23 22 21 Blood Pressure 113/54 L 147/60 H Pulse Oximetry 98 98 97 01/12/19 14:00 01/12/19 14:51 01/12/19 15:00 Temperature Pulse Rate 105 H 104 H 107 H Respiratory Rate 19 21 22 Blood Pressure 110/57 L Pulse Oximetry 99 96 95 01/12/19 15:51 01/12/19 16:00 01/12/19 16:51 Temperature 97.9 F Pulse Rate 106 H 106 H 104 H Respiratory Rate 19 21 19 Blood Pressure 117/57 L 101/62 Pulse Oximetry 97 98 97 01/12/19 17:00 01/12/19 17:51 01/12/19 18:00 Temperature Pulse Rate 105 H 104 H 103 H Respiratory Rate 20 19 20 Blood Pressure 132/67 Pulse Oximetry 95 98 97 01/12/19 19:00 01/12/19 19:47 01/12/19 19:51 Temperature Pulse Rate 101 H 104 H 104 H Respiratory Rate 19 19 Blood Pressure 141/66 H Pulse Oximetry 95 96 96 01/12/19 20:00 01/12/19 20:51 01/12/19 21:00 Temperature 98.7 F Pulse Rate 103 H 98 H 98 H Respiratory Rate 20 18 19 Blood Pressure 105/57 L Pulse Oximetry 95 97 97 01/12/19 21:51 01/12/19 22:00 01/12/19 22:10 Temperature Pulse Rate 98 H 99 H 99 H Respiratory Rate 18 18 Blood Pressure 122/59 L Pulse Oximetry 98 98 01/12/19 22:51 01/12/19 23:00 01/12/19 23:51 Temperature Pulse Rate 101 H 103 H 103 H Respiratory Rate 21 19 20 Blood Pressure 120/56 L 120/58 L Pulse Oximetry 97 97 97 01/13/19 00:00 01/13/19 00:15 01/13/19 00:51 Temperature 98.6 F Pulse Rate 103 H 104 H 105 H Respiratory Rate 18 17 Blood Pressure 123/58 L Pulse Oximetry 97 97 01/13/19 01:00 01/13/19 01:51 01/13/19 02:00 Temperature Pulse Rate 103 H 106 H 106 H Respiratory Rate 17 20 20 Blood Pressure 117/62 Pulse Oximetry 97 97 95 01/13/19 02:51 01/13/19 03:00 01/13/19 03:51 Temperature Pulse Rate 102 H 104 H 105 H Respiratory Rate 17 17 18 Blood Pressure 126/65 114/61 Pulse Oximetry 97 98 98 01/13/19 04:00 01/13/19 04:15 01/13/19 04:51 Temperature 97.8 F Pulse Rate 103 H 105 H 103 H Respiratory Rate 18 16 Blood Pressure 127/63 Pulse Oximetry 98 98 01/13/19 05:00 01/13/19 05:51 01/13/19 06:00 Temperature Pulse Rate 102 H 103 H 103 H Respiratory Rate 18 18 18 Blood Pressure 116/58 L Pulse Oximetry 98 97 98 01/13/19 06:05 01/13/19 06:51 01/13/19 07:00 Temperature Pulse Rate 105 H 103 H 103 H Respiratory Rate 18 17 Blood Pressure 133/69 Pulse Oximetry 98 99 01/13/19 07:29 01/13/19 08:00 Temperature Pulse Rate 106 H Respiratory Rate Blood Pressure Pulse Oximetry 99 98 Intake & Output 01/12/19 01/13/19 01/13/19 18:59 06:59 18:59 Intake Total 2150 / 2150 1451 / 1451 Output Total 3100 / 3100 900 / 900 Balance -950 / -950 551 / 551 Weight 77.3 kg Intake: IV 2150 / 2150 1451 / 1451 NS + KCl 20 mEq Inj 1,000 ML @ 1000 / 1000 1151 / 1151 84 mls/hr IV.CONT .[id number] [facility] Rx#:[id number] Azactam Inj 2 GM In NS Inj 100 100 / 100 ML @ 200 mls/hr IV.SIG Q8H [facility] Rx#:[id number] Levaquin 750 mg Premix Inj 150 150 / 150 ML @ 100 mls/hr IV.SIG Q24HR [facility] Rx#:[id number] Zyvox 600 mg Premix 300 ML @ 300 / 300 300 / 300 300 mls/hr IV.SIG Q12H [facility] Rx#: [id number] NS Inj 500 ML @ 1000 mls/hr IV. 500 / 500 SIG BOLUS [facility] Rx#:[id number] Flagyl 500 MG Inj 100 ML @ 100 100 / 100 mls/hr IV.SIG Q8H [facility] Rx#: [id number] Oral 0 / 0 Output: Urine Amount (Catheter) 1400 / 1400 300 / 300 3-way Urethral 300 / 300 Indwelling Urethral Catheter 1400 / 1400 Gastric Drainage 1700 / 1700 600 / 600 Right Nare Nasogastric Tube 1700 / 1700 600 / 600 Other: Bladder Irrigation Fluid - Amount Instilled 3-way Urethral 1,200 Indwelling Urethral Catheter 900 Bladder Irrigation Fluid - Amount Drained 3-way Urethral 1,500 Date of Last Bowel Movement 01/12/19 01/12/19 01/12/19 <Prerna Jesus 01/13/19 09:16> Narrative: GENERAL: Pleasant, cooperative, mildly depressed appearing 83 year old male resting in bed in no acute distress. Nasal cannula on 2 L. SKIN: Warm and dry. HEAD: Atraumatic. Normocephalic. EYES: Pupils equal and round. No scleral icterus. No injection or drainage. ENT: No nasal bleeding or discharge. Mucous membranes pink and moist. NECK: Trachea midline. CARDIOVASCULAR: Regular rate and rhythm. No murmurs or gallops RESPIRATORY: No accessory muscle use. Clear to auscultation. No wheezing or crackles. Decreased bibasilar breath sounds bilaterally. GASTROINTESTINAL: Abdomen mildly firm, distended. Generalized tenderness to palpation. Hypoactive bowel sounds. Galvez Cath in place, draining light yellow fluid MUSCULOSKELETAL: Extremities without clubbing, cyanosis, or edema. No obvious deformities. No calf tenderness NEUROLOGICAL: Awake and alert. No obvious cranial nerve deficits. Motor grossly within normal limits. Normal speech. PSYCHIATRIC: Appropriate mood and affect; insight and judgment normal. <Prerna Jesus 01/13/19 10:53> - Urinary Catheter Management 3-way Urethral Cath placed during this visit: no <Ingrid Workman 01/13/19 21:05> no <Prerna Jesus 01/13/19 14:39> Indwelling Urethral Catheter Cath placed during this visit: no <Ingrid Workman 01/13/19 21:05> yes, but has since been removed by the nurse <Prerna Jesus 14:39> Reason for continuing: Gross Hematuria <Prerna Jesus 01/13/19 09:16> Insertion date: 01/09/19 <Ng,Prerna 01/13/19 09:16> Insertion time: 17:35 <Ng,Prerna 01/13/19 09:16> Removal date: 01/09/19 <Ng,Prerna 01/13/19 09:16> Removal time: 17:30 <Ng,Prerna 01/13/19 09:16> Assessment and Plan - Assessment (1) Acute hemorrhagic cystitis Code(s): N30.01 - Acute cystitis with hematuria Status: Acute (2) Nutrition, metabolism, and development symptoms Code(s): R63.8 - Other symptoms and signs concerning food and fluid intake Status: Acute (3) Sepsis Code(s): A41.9 - Sepsis, unspecified organism Status: Acute (4) Hypertension Code(s): I10 - Essential (primary) hypertension Status: Chronic (5) Hyperlipidemia Code(s): E78.5 - Hyperlipidemia, unspecified Status: Acute (6) Prostate cancer Code(s): C61 - Malignant neoplasm of prostate Status: Chronic (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 Code(s): C61 - Malignant neoplasm of prostate; C79.51 - Secondary malignant neoplasm of bone Status: Acute <Ng,Prerna - 01/13/19 14:39> (1) Partial bowel obstruction Code(s): K56.600 - Partial intestinal obstruction, unspecified as to cause Status: Acute (2) Pneumonia Code(s): J18.9 - Pneumonia, unspecified organism Status: Acute (3) Complicated urinary tract infection Code(s): N39.0 - Urinary tract infection, site not specified Status: Acute (4) Gross hematuria Code(s): R31.0 - Gross hematuria Status: Resolved (5) Hypertension Code(s): I10 - Essential (primary) hypertension Status: Chronic (6) Prostate cancer Code(s): C61 - Malignant neoplasm of prostate Status: Chronic (7) Nutrition, metabolism, and development symptoms Code(s): R63.8 - Other symptoms and signs concerning food and fluid intake Status: Acute <Ingrid Workman - 01/13/19 21:05> - Assessment and Plan 1. Abdominal Pain- likely 2/2 adhesions vs infection status post radical proctectomy and orchiectomy 25yrs ago Patient currently NPO with NGT in place. To date, output is estimated to be about 2.4L. Yesterday's output was estimated to be a little over 5L PPI prophylaxis in place Repeat KUB this AM showed slight worsening of the gaseous distention of the small bowel, more suggestive of a partial distal small bowel obstruction. General surgery was consulted yesterday, recommended conservative medical management at this time but is closely following 2. Acute Hemorrhagic Cystitis Galvez catheter in place H&H stable at this time Currently on Pyridium and tamsulosin Hold oxybutynin for now due to antimotility side effects 3. Sepsis Urine culture positive for Pseudomonas, currently on Levaquin 750 mg, ID is following Currently on linezolid 600 mg for MRSA coverage Blood cultures negative x1d Lactic acid normalized, 3.4 ->1.8 White cell count normalized, 12.6 -> 8.6 Creatinine levels continue to improve, 1.45-> 1.18 Pro-calcitonin mildly elevated at 1.09 We will continue to monitor lab values 4. Nutrition, Metabolism, Development Symptoms Fluids: NS plus KCl 84mls/hour Electrolytes stable at this time, will replete as needed Vitamin B supplementation as needed Incentive Spirometry every 10mins while awake and encourage early ambulation Discussed with PT about importance of transfer from bed to chair to prevent deconditioning and to encourage bowel motility. Currently scheduled to be seen by PT today. 5. Hypertension Currently on metoprolol 6. Hyperlipidemia Currently on pravastatin 7. Prostate cancer with metastasis to bone Will follow-up with urologist at the [facility] for management VTE and PPI Prophylaxis Dispo:transfer to medical floor <Prerna Jesus - 01/13/19 14:39> - Attending Attestation Patient seen and examined, discussed with medical student and resident team. I agree with assessment and management as documented and discussed with me. I personally performed and verify what has been documented by medical student. Pt reports some abdominal pain today. NG tube still with significant output. + nausea with ice chips this morning. Nurse reports small BM late this AM. Continue NG tube, medical management of partial small bowel obstruction. <Ingrid Workman - 01/13/19 21:05>
[2019-01-13] MEDS: Metoprolol Tartrate 25 MG Tablet PO SCH ×2 (09:47→20:50)
[2019-01-13] MEDS: XTANDI 160 MG PO SCH (09:47)
[2019-01-13] MEDS: Lactobacillus Acidophilus/L. Spores Tablet PO SCH ×2 (09:47→20:50)
--- NOTE | 2019-01-13 12:32 | P.PNID ---
Subjective Remarks: Patient is an 83-year-old male, with known history of prostate cancer, recently diagnosed to have recurrence, and metastatic disease, presented to the hospital complaining of severe suprapubic abdominal pain. Patient apparently has had problem with urinary retention, and he has been requiring Galvez catheter for this problem since I believe September 2018. In October, he was hospitalized at the [facility] due to urinary retention. According to the patient while he was in there they tried straight catheter procedure for his problem, and patient stated he developed hematuria. He was switched back to Galvez catheter, and he was discharged to the [facility] rehab. Patient stated that his catheter was changed in the rehab once, but he could not remember the last time it was changed. 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 In the ED they did a bladder scan, and apparently the volume was about 30 mL. He had hematuria at that time, and urine culture was sent and he was sent back to the rehab facility. Apparently the pain medication prescribed to him was not working, so the patient was brought back to the hospital and has now been admitted. Patient currently is complaining of nausea and dry heaves. He is also complaining of significant pain in the suprapubic region. He has gross hematuria and he is urine bag. Patient has been febrile up to 102. CT of the abdomen and pelvis is showing evidence of right hydro-ureteric nephrosis , and there was also possibly a bladder calculi. The bladder is decompressed. Patient gives a history of penicillin allergy with itching. Infectious disease consultation has been requested to assist with antibiotic management. Notes reviewed Low grade temps yesterday NGT to suction Feels a little better CT with possible distal SBO Surgery evaluating - conservative measures for now WBC down to normal Creatinine better Getting CBI - urine looks clear Repeat UA better UC with PSAE sensitive ONe small BM Antibiotics: Levaquin Lines: Lines ok Past Medical History: reviewed Allergies/Adverse Reactions: Allergies Penicillins Allergy (Verified 01/06/19 02:12) Itching Objective Vital Signs 01/12/19 12:51 01/12/19 13:00 01/12/19 13:51 Temperature Pulse Rate 108 H 107 H 111 H Respiratory Rate 23 22 21 Blood Pressure 113/54 L 147/60 H Pulse Oximetry 98 98 97 01/12/19 14:00 01/12/19 14:51 01/12/19 15:00 Temperature Pulse Rate 105 H 104 H 107 H Respiratory Rate 19 21 22 Blood Pressure 110/57 L Pulse Oximetry 99 96 95 01/12/19 15:51 01/12/19 16:00 01/12/19 16:51 Temperature 97.9 F Pulse Rate 106 H 106 H 104 H Respiratory Rate 19 21 19 Blood Pressure 117/57 L 101/62 Pulse Oximetry 97 98 97 01/12/19 17:00 01/12/19 17:51 01/12/19 18:00 Temperature Pulse Rate 105 H 104 H 103 H Respiratory Rate 20 19 20 Blood Pressure 132/67 Pulse Oximetry 95 98 97 01/12/19 19:00 01/12/19 19:47 01/12/19 19:51 Temperature Pulse Rate 101 H 104 H 104 H Respiratory Rate 19 19 Blood Pressure 141/66 H Pulse Oximetry 95 96 96 01/12/19 20:00 01/12/19 20:51 01/12/19 21:00 Temperature 98.7 F Pulse Rate 103 H 98 H 98 H Respiratory Rate 20 18 19 Blood Pressure 105/57 L Pulse Oximetry 95 97 97 01/12/19 21:51 01/12/19 22:00 01/12/19 22:10 Temperature Pulse Rate 98 H 99 H 99 H Respiratory Rate 18 18 Blood Pressure 122/59 L Pulse Oximetry 98 98 01/12/19 22:51 01/12/19 23:00 01/12/19 23:51 Temperature Pulse Rate 101 H 103 H 103 H Respiratory Rate 21 19 20 Blood Pressure 120/56 L 120/58 L Pulse Oximetry 97 97 97 01/13/19 00:00 01/13/19 00:15 01/13/19 00:51 Temperature 98.6 F Pulse Rate 103 H 104 H 105 H Respiratory Rate 18 17 Blood Pressure 123/58 L Pulse Oximetry 97 97 01/13/19 01:00 01/13/19 01:51 01/13/19 02:00 Temperature Pulse Rate 103 H 106 H 106 H Respiratory Rate 17 20 20 Blood Pressure 117/62 Pulse Oximetry 97 97 95 01/13/19 02:51 01/13/19 03:00 01/13/19 03:51 Temperature Pulse Rate 102 H 104 H 105 H Respiratory Rate 17 17 18 Blood Pressure 126/65 114/61 Pulse Oximetry 97 98 98 01/13/19 04:00 01/13/19 04:15 01/13/19 04:51 Temperature 97.8 F Pulse Rate 103 H 105 H 103 H Respiratory Rate 18 16 Blood Pressure 127/63 Pulse Oximetry 98 98 01/13/19 05:00 01/13/19 05:51 01/13/19 06:00 Temperature Pulse Rate 102 H 103 H 103 H Respiratory Rate 18 18 18 Blood Pressure 116/58 L Pulse Oximetry 98 97 98 01/13/19 06:05 01/13/19 06:51 01/13/19 07:00 Temperature Pulse Rate 105 H 103 H 103 H Respiratory Rate 18 17 Blood Pressure 133/69 Pulse Oximetry 98 99 01/13/19 07:29 01/13/19 07:51 01/13/19 08:00 Temperature 97.9 F Pulse Rate 103 H 103 H Respiratory Rate 23 24 Blood Pressure 179/81 H Pulse Oximetry 99 96 98 01/13/19 08:51 01/13/19 09:00 01/13/19 09:51 Temperature Pulse Rate 103 H 106 H 103 H Respiratory Rate 17 27 H 24 Blood Pressure 122/57 L 131/60 Pulse Oximetry 98 97 98 01/13/19 10:00 01/13/19 10:29 01/13/19 11:00 Temperature Pulse Rate 101 H 106 H 107 H Respiratory Rate 21 29 H Blood Pressure Pulse Oximetry 97 93 L 01/13/19 11:12 Temperature Pulse Rate 107 H Respiratory Rate 45 H Blood Pressure 126/60 Pulse Oximetry 94 L Intake & Output 01/12/19 01/13/19 01/13/19 18:59 06:59 18:59 Intake Total 2150 / 2150 1451 / 1451 300 / 300 Output Total 3100 / 3100 900 / 900 Balance -950 / -950 551 / 551 300 / 300 Weight 77.3 kg Intake: IV 2150 / 2150 1451 / 1451 300 / 300 NS + KCl 20 mEq Inj 1,000 ML @ 1000 / 1000 1151 / 1151 84 mls/hr IV.CONT .[id number] GEORGE Rx#:[id number] Azactam Inj 2 GM In NS Inj 100 100 / 100 ML @ 200 mls/hr IV.SIG Q8H GEORGE Rx#:[id number] Levaquin 750 mg Premix Inj 150 150 / 150 ML @ 100 mls/hr IV.SIG Q24HR GEORGE Rx#:[id number] Zyvox 600 mg Premix 300 ML @ 300 / 300 300 / 300 300 / 300 300 mls/hr IV.SIG Q12H GEORGE Rx#: [id number] NS Inj 500 ML @ 1000 mls/hr IV. 500 / 500 SIG BOLUS GEORGE Rx#:[id number] Flagyl 500 MG Inj 100 ML @ 100 100 / 100 mls/hr IV.SIG Q8H GEORGE Rx#: [id number] Oral 0 / 0 Output: Urine Amount (Catheter) 1400 / 1400 300 / 300 3-way Urethral 300 / 300 Indwelling Urethral Catheter 1400 / 1400 Gastric Drainage 1700 / 1700 600 / 600 Right Nare Nasogastric Tube 1700 / 1700 600 / 600 Other: Bladder Irrigation Fluid - Amount Instilled 3-way Urethral 1,200 Indwelling Urethral Catheter 900 Bladder Irrigation Fluid - Amount Drained 3-way Urethral 1,500 Date of Last Bowel Movement 01/12/19 01/12/19 01/12/19 01/12/19 03:48 Blood - Peripheral Aerobic Blood Culture - Preliminary No growth in 1 day 01/12/19 03:48 Blood - Peripheral Anaerobic Blood Culture - Preliminary No growth in 1 day 01/12/19 03:40 Blood - Peripheral Aerobic Blood Culture - Preliminary No growth in 1 day 01/12/19 03:40 Blood - Peripheral Anaerobic Blood Culture - Preliminary No growth in 1 day 01/07/19 12:40 Blood - Peripheral Aerobic Blood Culture - Final No growth in 5 days 01/07/19 12:40 Blood - Peripheral Anaerobic Blood Culture - Final QNS - See aerobic report. 01/07/19 12:35 Blood - Peripheral Aerobic Blood Culture - Final No growth in 5 days 01/07/19 12:35 Blood - Peripheral Anaerobic Blood Culture - Final QNS - See aerobic report. 01/06/19 09:51 Blood - Peripheral Aerobic Blood Culture - Final No growth in 5 days 01/06/19 09:51 Blood - Peripheral Anaerobic Blood Culture - Final No growth in 5 days 01/06/19 23:26 Blood - Peripheral Aerobic Blood Culture - Final No growth in 5 days 01/06/19 23:26 Blood - Peripheral Anaerobic Blood Culture - Final No growth in 5 days Lab - Hematology Results 01/12/19 01/12/19 01/13/19 03:40 05:03 03:47 WBC 12.8 H 12.6 H 8.6 RBC 4.15 L 4.01 L 3.99 L Hgb 12.6 L 12.1 L 12.0 L Hct 37.5 L 35.9 L 35.7 L MCV 90.5 89.6 89.6 MCH 30.4 30.1 30.1 MCHC 33.5 33.6 33.5 RDW 15.1 15.1 15.6 Plt Count 336 302 327 MPV 7.2 7.4 7.4 Prelim Diff (Auto) Manual diff required Manual diff required Neut % (Auto) 79.6 H Lymph % (Auto) 10.2 [place] % (Auto) 6.7 Eos % (Auto) 3.0 Baso % (Auto) 0.5 Neut # (Auto) 6.8 Lymph # (Auto) 0.9 L [place] # (Auto) 0.6 Eos # (Auto) 0.3 Baso # (Auto) 0.0 WBC Differential Manual diff final Manual diff final . Seg Neuts % (Manual) 82 H 80 H Band Neuts % (Manual) 7 H 10 H Lymphocytes % (Manual) 5 L 4 L Monocytes % (Manual) 6 6 Abs Neuts (Manual) 11.4 H 11.3 H Differential Comment . . Auto diff final Platelet Estimate Normal Normal Platelet Morphology Normal Normal RBC Morphology Normal Lab - Chemistry Results 01/11/19 01/12/19 01/12/19 10:51 00:10 03:40 Sodium 141 Potassium 4.1 Chloride 108 H Carbon Dioxide 23.5 Anion Gap 10 BUN 30 H Creatinine 1.24 Estimated GFR 55 L Random Glucose 120 H Lactic Acid 3.7 H 3.4 H Calcium 8.7 Total Bilirubin AST ALT Alkaline Phosphatase Total Protein Albumin Procalcitonin 01/12/19 01/12/19 01/12/19 05:03 05:03 11:21 Sodium 145 Potassium 4.0 Chloride 113 H Carbon Dioxide 22.8 Anion Gap 9 BUN 34 H Creatinine 1.45 H Estimated GFR 46 L Random Glucose 130 H Lactic Acid 1.8 Calcium 7.9 L D Total Bilirubin 0.9 AST 39 H ALT 41 Alkaline Phosphatase 302 H Total Protein 5.4 L Albumin 2.0 L Procalcitonin 1.09 H 01/13/19 03:47 Sodium 145 Potassium 4.2 Chloride 114 H Carbon Dioxide 22.0 Anion Gap 9 BUN 31 H Creatinine 1.18 Estimated GFR 59 L Random Glucose 89 Lactic Acid Calcium 7.8 L Total Bilirubin 0.6 AST 22 ALT 32 Alkaline Phosphatase 243 H Total Protein 5.6 L Albumin 1.9 L Procalcitonin Imaging: ITS Impressions Liver Ultrasound 01/07/19 00:00 CONCLUSION: 1. Minimal increase in echogenicity of the liver without mass or hydronephrosis. 2. There is no ductal dilatation Chest X-Ray 01/11/19 00:00 CONCLUSION: Mild bilateral infiltrates Abdomen/Pelvis CT 01/12/19 00:00 CONCLUSION: 1. Abnormal bowel gas pattern with multiple loops of borderline dilated air- containing small bowel with multiple air-fluid levels. The distal most portion of the small bowel and colon are decompressed. The findings of concern for distal small bowel obstruction. 2. Small bilateral pleural effusions and consolidation both lung bases. 3. Stable appearance of the right ilium and ischium with sclerosis and thickening. 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 Metastatic prostate cancer could have a similar appearance. Abdomen X-Ray 01/13/19 00:00 CONCLUSION: Slight worsening in the gaseous distention of the small bowel. The pattern is more suggestive of a partial distal small bowel obstruction. Physical Exam: GENERAL: awake and alert, not in respiratory distress. SKIN: Cool and dry. No generalized rash EYES: [place] conjunctiva. No petechia or hemorrhage. No scleral icterus. No injection or drainage. EARS, NOSE AND THROAT: Mucous membranes pink and moist. NGT to msuction NECK: Trachea midline. Supple and not tender, no meningeal signs CARDIOVASCULAR: Regular rate and rhythm. No murmurs, rubs or gallops heard RESPIRATORY: Clear to auscultation. Breath sounds equal bilaterally. No rales , wheezing or rhonchi ABDOMEN: Less distended abdomen, with diffuse tenderness. EXTREMITIES: No clubbing, cyanosis, or edema. No calf tenderness. : Galvez catheter in place, urine looks clear, getting CBI. NEUROLOGICAL: Non-focal. PSYCHIATRIC: calm and cooperative. LINE: No evidence of infection Assessment and Plan - Plan IMpression Possible sepsis due to UTI, better Acute Pyelonephritis, with gross hematuria, has hydroureteronephrosis on R PSAE infection UTI Hemorrhagic cystitis, better Hx prostate CA with bone mets Acute Renal insufficiency, improving Itching with PCN Vomiting, abdominal distension, possible SBO Hypoxemia, ?fluid Recommendation Continue Levaquin IV as PSAE [place] sensitive. - will keep IV for now Monitor progress Will follow Surgery following for possible SBO - non-operative for now
--- NOTE | 2019-01-13 15:12 | P.PNGS ---
Subjective Interval history: DAILY PROGRESS NOTE FOR SURGICAL ATTENDING, DR. DEYANIRA LIRIANO Resting in bed Had small BM this AM Physical Exam Vital signs: Initial Documented Vital Signs Temperature 97.7 F 01/06/19 11:23 Pulse Rate 117 H 01/06/19 11:23 Respiratory Rate 18 01/06/19 11:23 Blood Pressure 142/68 H 01/06/19 11:23 Pulse Oximetry 100 01/06/19 11:23 Last Documented Vital Signs Temperature 98.1 F 01/13/19 16:00 Pulse Rate 100 H 01/13/19 18:00 Respiratory Rate 22 01/13/19 18:00 Blood Pressure 133/67 01/13/19 17:51 Pulse Oximetry 95 01/13/19 18:00 Intake & Output 01/13/19 01/13/19 01/13/19 06:59 14:59 22:59 Intake Total 1151 / 1151 300 / 300 849 / 849 Output Total 900 / 900 1700 / 1700 Balance 251 / 251 300 / 300 -851 / -851 Weight 77.3 kg Narrative: Alert and awake Abd: distended although improved from yesterday NGT in place---bilious drainage - Urinary Catheter Management Indwelling Urethral Catheter Cath placed during this visit: yes, but has since been removed by the nurse Reason for continuing: Gross Hematuria Insertion date: 01/09/19 Insertion time: 17:35 Removal date: 01/09/19 Removal time: 17:30 3-way Urethral Cath placed during this visit: no Reason for continuing: Gross Hematuria Results - Labs 01/13/19 03:47 01/13/19 03:47 Laboratory Results - last 24 hr 01/13/19 01/13/19 03:47 03:47 WBC 8.6 RBC 3.99 L Hgb 12.0 L Hct 35.7 L MCV 89.6 MCH 30.1 MCHC 33.5 RDW 15.6 Plt Count 327 MPV 7.4 Neut % (Auto) 79.6 H Lymph % (Auto) 10.2 Bee % (Auto) 6.7 Eos % (Auto) 3.0 Baso % (Auto) 0.5 Neut # (Auto) 6.8 Lymph # (Auto) 0.9 L Bee # (Auto) 0.6 Eos # (Auto) 0.3 Baso # (Auto) 0.0 WBC Differential . Differential Comment Auto diff final Sodium 145 Potassium 4.2 Chloride 114 H Carbon Dioxide 22.0 Anion Gap 9 BUN 31 H Creatinine 1.18 Estimated GFR 59 L Random Glucose 89 Calcium 7.8 L Total Bilirubin 0.6 AST 22 ALT 32 Alkaline Phosphatase 243 H Total Protein 5.6 L Albumin 1.9 L - Imaging Imaging: ITS Impressions Liver Ultrasound 01/07/19 00:00 CONCLUSION: 1. Minimal increase in echogenicity of the liver without mass or hydronephrosis. 2. There is no ductal dilatation Chest X-Ray 01/11/19 00:00 CONCLUSION: Mild bilateral infiltrates Abdomen/Pelvis CT 01/12/19 00:00 CONCLUSION: 1. Abnormal bowel gas pattern with multiple loops of borderline dilated air- containing small bowel with multiple air-fluid levels. The distal most portion of the small bowel and colon are decompressed. The findings of concern for distal small bowel obstruction. 2. Small bilateral pleural effusions and consolidation both lung bases. 3. Stable appearance of the right ilium and ischium with sclerosis and thickening. 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 Metastatic prostate cancer could have a similar appearance. Abdomen X-Ray 01/13/19 00:00 CONCLUSION: Slight worsening in the gaseous distention of the small bowel. The pattern is more suggestive of a partial distal small bowel obstruction. Abdominal x-ray: report reviewed, image reviewed CT scan - abdomen: report reviewed, image reviewed CT scan - chest: report reviewed, image reviewed Assessment and Plan - Assessment (1) Ileus Code(s): K56.7 - Ileus, unspecified Status: Acute (2) Acute hemorrhagic cystitis Code(s): N30.01 - Acute cystitis with hematuria Status: Acute (3) Complicated urinary tract infection Code(s): N39.0 - Urinary tract infection, site not specified Status: Acute (4) Pneumonia Code(s): J18.9 - Pneumonia, unspecified organism Status: Acute (5) Prostate cancer metastatic to bone Code(s): C61 - Malignant neoplasm of prostate; C79.51 - Secondary malignant neoplasm of bone Status: Acute - Plan 83 year old male with recurrent prostate cancer; UTI; pneumonia; radiological findings of SBO -KUB continues to shows dilated bowel -NGT in place; continues to have high output but tapering down -Recommend continuing NGT to LIWS -Monitor I/O closely as GI loss is high -Discussed with patient SBO may be secondary to adhesions vs infection (UTI) -ID following -Will continue non operative management - Attending Attestation NOTE FOR SURGICAL ATTENDING, DR. DEYANIRA LIRIANO I agree with above assessment and plan. The exam, history, and the medical decision-making described in the above note were completed with the assistance of the mid-level provider. I reviewed and agree with the findings presented. I attest that I had a [id number] encounter with the patient on the same day, and personally performed and documented my assessment and findings in the medical record. The following services were provided during this hospital visit: Chart data review, vital sign assessments/reviewing monitor data Review of consultations notes if present. Medication orders/review and/or management Ordering and/or reviewing lab tests Ordering and/or interpreting/reviewing x-rays and/or diagnostic studies Care of the patient and discussion of the patient with the care team Documentation time To help prompt me to consider important information that might be impacting today's encounter and assessment, Information from prior notes written by myself or my colleagues may have been "brought forward/copy and pasted" into today's note.
--- NOTE | 2019-01-13 16:47 | P.PNADD ---
Addendum to Inpatient Note Reason for Addendum: Additional Documentation Additional information: This addendum is to document that I have personally spoke with the patient's spouse . Parul Green at approximately 1630 on 01/13/19. We spoke at length about the patient's current condition as well as the improvement of his hemorrhagic cystitis and current management of his partial bowel obstruction. Spouse believes the patient is not necessarily appropriate for surgery and appreciates that we are managing him medically at this time. We also spoke about patient sadness due to his current state, as well as the positivity of his visiting him this evening. I attempted to explain to the what a bowel obstruction was as well as his hospital course and treatment thus far, interjected that she was not interested in the medical details. She reports appreciating what we are doing for him but she has different believes when it comes to moderate medicine and surgical intervention. Ultimately, thanked me for the call as well as for his current care. She had no further questions. Total phone call time approximately 15 minutes.
[2019-01-13] MEDS: Potassium Chloride Inj 10 MEQ in Dextrose 5% in Water Inj 1,000 ML IV.CONT SCH ×2 (19:57)
[2019-01-13] MEDS: Mirtazapine 15 MG Tablet PO SCH (20:50)
[2019-01-14] MEDS: Potassium Chloride Inj 10 MEQ in Dextrose 5% in Water Inj 1,000 ML IV.CONT SCH ×6 (04:00→20:58)
[2019-01-14 05:55] LABS: Baso % (Auto) 0.5 % (0.0-2.0); Eos # (Auto) 0.3 th/mm3 (0.0-0.4); Eos % (Auto) 4.4 % (0.0-4.0); Hematocrit 33.5 % (39.0-51.0); Hemoglobin 11.3 gm/dL (13.0-17.0); Lymph # (Auto) 0.9 th/mm3 (1.0-4.8); Lymph % (Auto) 11.4 % (9.0-44.0); Mean Corpuscular HGB Conc 33.7 % (32.0-36.0); Mean Corpuscular Volume 88.9 fL (80.0-100.0); Mean Platelet Volume 7.4 fL (7.0-11.0); Mono # (Auto) 0.5 th/mm3 (0.0-0.9); Mono % (Auto) 6.8 % (0.0-8.0); Neut # (Auto) 6.1 th/mm3 (1.8-7.7); Neut % (Auto) 76.9 % (16.0-70.0); Platelet Count 361 th/mm3 (150-450); Red Blood Count 3.77 mil/mm3 (4.50-5.90); Red Cell Distribution Width 15.6 % (11.6-17.2); White Blood Count 7.9 th/mm3 (4.0-11.0)
[2019-01-14 06:24] LABS: Alanine Aminotransferase 22 U/L (12-78); Albumin 1.8 g/dL (3.4-5.0); Anion Gap 9 meq/L (5-15); Aspartate Aminotransferase 15 U/L (15-37); Blood Urea Nitrogen 24 mg/dL (7-18); Calcium 7.7 mg/dL (8.5-10.1); Carbon Dioxide 21.5 meq/L (21.0-32.0); Chloride 112 meq/L (98-107); Glomerular Filtration Rate 69 mL/min (>89); Glucose,Random 114 mg/dL (74-106); Lipase 618 U/L (73-393); Potassium 3.7 meq/L (3.5-5.1); Sodium 142 meq/L (136-145)
[2019-01-14 06:26] LABS: Alkaline Phosphatase 184 U/L (45-117); Total Protein 5.3 g/dL (6.4-8.2)
[2019-01-14 07:24] LABS: Eosinophils 5 % (0-4); Lymphocytes 11 % (9-44); Metamyelocytes 3 % (0-1); Monocytes 3 % (0-8)
[2019-01-14 07:25] LABS: Platelet Estimate Normal (Normal); Platelet Morphology Normal (Normal)
[2019-01-14 07:28] LABS: RBC Morphology Normal (Normal)
--- NOTE | 2019-01-14 08:57 | P.PNFP ---
Subjective Interval history: NAEO Patient examined while laying in bed comfortably. Patient reports continued nasal irritation from NG tube, new onset pain with swallowing worsened by deep inspiration and continued abdominal pain, describes pain with swallowing as dry and irritated. Reports nausea and vomiting. Denies dyspnea, chest pain, flatus , BM. <Prerna Jesus - 01/14/19 11:42> Results - Labs Result diagrams: 01/14/19 04:44 01/14/19 04:44 <Ingrid Workman - 01/14/19 21:09> Abnormal lab results 01/14/19 01/14/19 Range/Units 04:44 04:44 RBC 3.77 L (4.50-5.90) mil/mm3 Hgb 11.3 L (13.0-17.0) gm/dL Hct 33.5 L (39.0-51.0) % Neut % (Auto) 76.9 H (16.0-70.0) % Eos % (Auto) 4.4 H (0.0-4.0) % Lymph # (Auto) 0.9 L (1.0-4.8) th/mm3 Seg Neuts % (Manual) 74 H (16-70) % Eosinophils % (Manual) 5 H (0-4) % Metamyelocytes % (Man) 3 H (0-1) % Chloride 112 H (98-107) meq/L BUN 24 H (7-18) mg/dL Estimated GFR 69 L (>89) mL/min Random Glucose 114 H (74-106) mg/dL Calcium 7.7 L (8.5-10.1) mg/dL Alkaline Phosphatase 184 H (45-117) U/L Total Protein 5.3 L (6.4-8.2) g/dL Albumin 1.8 L (3.4-5.0) g/dL Lipase 618 H (73-393) U/L Short CBC 01/14/19 Range/Units 04:44 WBC 7.9 (4.0-11.0) th/mm3 Hgb 11.3 L (13.0-17.0) gm/dL Hct 33.5 L (39.0-51.0) % Plt Count 361 (150-450) th/mm3 BMP 01/14/19 04:44 Sodium 142 Potassium 3.7 Chloride 112 H Carbon Dioxide 21.5 BUN 24 H Creatinine 1.02 Calcium 7.7 L Liver Function 01/14/19 Range/Units 04:44 Total Bilirubin 0.5 (0.2-1.0) mg/dL AST 15 (15-37) U/L ALT 22 (12-78) U/L Alkaline Phosphatase 184 H (45-117) U/L Albumin 1.8 L (3.4-5.0) g/dL <Ingrid Workman - 01/14/19 21:09> Abnormal lab results 01/14/19 01/14/19 Range/Units 04:44 04:44 RBC 3.77 L (4.50-5.90) mil/mm3 Hgb 11.3 L (13.0-17.0) gm/dL Hct 33.5 L (39.0-51.0) % Neut % (Auto) 76.9 H (16.0-70.0) % Eos % (Auto) 4.4 H (0.0-4.0) % Lymph # (Auto) 0.9 L (1.0-4.8) th/mm3 Seg Neuts % (Manual) 74 H (16-70) % Eosinophils % (Manual) 5 H (0-4) % Metamyelocytes % (Man) 3 H (0-1) % Chloride 112 H (98-107) meq/L BUN 24 H (7-18) mg/dL Estimated GFR 69 L (>89) mL/min Random Glucose 114 H (74-106) mg/dL Calcium 7.7 L (8.5-10.1) mg/dL Alkaline Phosphatase 184 H (45-117) U/L Total Protein 5.3 L (6.4-8.2) g/dL Albumin 1.8 L (3.4-5.0) g/dL Lipase 618 H (73-393) U/L Short CBC 01/14/19 Range/Units 04:44 WBC 7.9 (4.0-11.0) th/mm3 Hgb 11.3 L (13.0-17.0) gm/dL Hct 33.5 L (39.0-51.0) % Plt Count 361 (150-450) th/mm3 BMP 01/14/19 04:44 Sodium 142 Potassium 3.7 Chloride 112 H Carbon Dioxide 21.5 BUN 24 H Creatinine 1.02 Calcium 7.7 L Liver Function 01/14/19 Range/Units 04:44 Total Bilirubin 0.5 (0.2-1.0) mg/dL AST 15 (15-37) U/L ALT 22 (12-78) U/L Alkaline Phosphatase 184 H (45-117) U/L Albumin 1.8 L (3.4-5.0) g/dL <Prerna Jesus - 01/14/19 08:57> - Imaging Impressions Abdomen X-Ray 01/14/19 00:00 CONCLUSION: Similar degree of severity and distribution of dilated loops of small bowel compared to yesterday. <JiIngrid - 01/14/19 21:09> Physical Exam Vital signs: Vital Signs 01/13/19 22:05 01/14/19 00:00 01/14/19 00:20 Temperature 97.9 F Pulse Rate 99 H 91 H 90 Respiratory Rate 18 Blood Pressure 122/63 Pulse Oximetry 01/14/19 02:00 01/14/19 04:00 01/14/19 04:11 Temperature 98 F Pulse Rate 91 H 90 93 H Respiratory Rate 22 Blood Pressure 121/63 Pulse Oximetry 01/14/19 06:16 01/14/19 07:00 01/14/19 07:51 Temperature Pulse Rate 92 H 90 91 H Respiratory Rate 16 17 Blood Pressure 127/60 Pulse Oximetry 95 95 01/14/19 08:00 01/14/19 08:51 01/14/19 09:00 Temperature 97.7 F Pulse Rate 89 89 92 H Respiratory Rate 24 27 H 23 Blood Pressure 134/69 Pulse Oximetry 97 97 97 01/14/19 09:51 01/14/19 10:00 01/14/19 10:51 Temperature Pulse Rate 87 88 92 H Respiratory Rate 20 17 26 H Blood Pressure 112/58 L 115/81 Pulse Oximetry 96 98 96 01/14/19 11:00 01/14/19 11:51 01/14/19 12:00 Temperature 97.7 F Pulse Rate 92 H 89 88 Respiratory Rate 25 H 27 H 23 Blood Pressure 120/63 Pulse Oximetry 96 96 96 01/14/19 12:51 01/14/19 13:00 01/14/19 13:51 Temperature Pulse Rate 84 84 83 Respiratory Rate 26 H 20 18 Blood Pressure 131/73 117/63 Pulse Oximetry 97 96 94 L 01/14/19 14:00 01/14/19 14:51 01/14/19 15:00 Temperature Pulse Rate 81 82 83 Respiratory Rate 18 17 22 Blood Pressure 121/68 Pulse Oximetry 96 94 L 97 01/14/19 15:29 01/14/19 15:51 01/14/19 16:00 Temperature 97.7 F Pulse Rate 87 93 H 91 H Respiratory Rate 24 32 H 27 H Blood Pressure 123/77 120/67 Pulse Oximetry 95 97 93 L 01/14/19 16:51 01/14/19 17:00 01/14/19 18:00 Temperature Pulse Rate 88 87 89 Respiratory Rate 25 H 25 H Blood Pressure 126/70 Pulse Oximetry 95 95 01/14/19 20:00 Temperature 97.6 F Pulse Rate 90 Respiratory Rate 23 Blood Pressure 122/75 Pulse Oximetry 96 Intake & Output 01/14/19 01/14/19 01/15/19 06:59 18:59 06:59 Intake Total 1850 / 1850 1455 / 1455 1005 / 1005 Output Total 3200 / 3200 850 / 850 Balance -1350 / -1350 605 / 605 1005 / 1005 Weight 71.6 kg Intake: IV 1850 / 1850 1455 / 1455 1005 / 1005 NS + KCl 20 mEq Inj 1,000 ML @ 550 / 550 84 mls/hr IV.CONT .[id number] [facility] Rx#:[id number] KCl Inj 10 MEQ In D5W Inj 1,000 1000 / 1000 1005 / 1005 1005 / 1005 ML @ 125 mls/hr IV.CONT .Q8H3M [facility] Rx#:[id number] Levaquin 750 mg Premix Inj 150 150 / 150 ML @ 100 mls/hr IV.SIG Q48H [facility] Rx#:[id number] Zyvox 600 mg Premix 300 ML @ 300 / 300 300 / 300 300 mls/hr IV.SIG Q12H [facility] Rx#: [id number] Oral 0 / 0 Bladder Irrigation Fluid - 0 / 0 Amount Retained Indwelling Urethral Catheter 0 / 0 Output: Urine Amount (Catheter) 2550 / 2550 500 / 500 3-way Urethral 2550 / 2550 Indwelling Urethral Catheter 500 / 500 Gastric Drainage 650 / 650 350 / 350 Right Nare Nasogastric Tube 650 / 650 350 / 350 Other: Bladder Irrigation Fluid - Amount Instilled 3-way Urethral 2,100 Indwelling Urethral Catheter 600 Bladder Irrigation Fluid - Amount Drained Indwelling Urethral Catheter 1,100 Date of Last Bowel Movement 01/12/19 01/12/19 01/12/19 <Ingrid Workman - 01/14/19 21:09> Vital Signs 01/13/19 09:00 01/13/19 09:51 01/13/19 10:00 Temperature Pulse Rate 106 H 103 H 101 H Respiratory Rate 27 H 24 21 Blood Pressure 131/60 Pulse Oximetry 97 98 97 01/13/19 10:29 01/13/19 11:00 01/13/19 11:12 Temperature Pulse Rate 106 H 107 H 107 H Respiratory Rate 29 H 45 H Blood Pressure 126/60 Pulse Oximetry 93 L 94 L 01/13/19 11:51 01/13/19 12:00 01/13/19 12:51 Temperature 97.9 F Pulse Rate 108 H 110 H 105 H Respiratory Rate 22 21 18 Blood Pressure 117/66 104/57 L Pulse Oximetry 95 95 95 01/13/19 13:00 01/13/19 13:51 01/13/19 14:00 Temperature Pulse Rate 106 H 101 H 101 H Respiratory Rate 18 19 18 Blood Pressure 114/59 L Pulse Oximetry 95 95 95 01/13/19 14:22 01/13/19 14:51 01/13/19 15:00 Temperature Pulse Rate 106 H 100 H 100 H Respiratory Rate 19 20 Blood Pressure 103/59 L Pulse Oximetry 94 L 95 01/13/19 16:00 01/13/19 16:51 01/13/19 17:00 Temperature 98.1 F Pulse Rate 102 H 100 H 101 H Respiratory Rate 24 21 21 Blood Pressure 111/63 Pulse Oximetry 95 96 95 01/13/19 17:51 01/13/19 18:00 01/13/19 19:00 Temperature Pulse Rate 98 H 100 H 100 H Respiratory Rate 25 H 22 24 Blood Pressure 133/67 Pulse Oximetry 95 95 96 01/13/19 19:51 01/13/19 20:00 01/13/19 20:04 Temperature 98.6 F Pulse Rate 96 H 97 H 100 H Respiratory Rate 18 22 Blood Pressure 150/71 H Pulse Oximetry 96 96 96 01/13/19 20:26 02/14/19 20:51 01/13/19 21:00 Temperature Pulse Rate 95 H 96 H Respiratory Rate 24 24 Blood Pressure 146/80 H Pulse Oximetry 95 96 96 01/13/19 22:05 01/14/19 00:00 01/14/19 00:20 Temperature 97.9 F Pulse Rate 99 H 91 H 90 Respiratory Rate 18 Blood Pressure 122/63 Pulse Oximetry 01/14/19 02:00 01/14/19 04:00 01/14/19 04:11 Temperature 98 F Pulse Rate 91 H 90 93 H Respiratory Rate 22 Blood Pressure 121/63 Pulse Oximetry 01/14/19 06:16 01/14/19 08:00 Temperature Pulse Rate 92 H Respiratory Rate Blood Pressure Pulse Oximetry 95 Intake & Output 01/13/19 01/14/19 01/14/19 18:59 06:59 18:59 Intake Total 1149 / 1149 1850 / 1850 Output Total 1700 / 1700 3200 / 3200 Balance -551 / -551 -1350 / -1350 Weight 71.6 kg Intake: IV 1149 / 1149 1850 / 1850 NS + KCl 20 mEq Inj 1,000 ML @ 849 / 849 550 / 550 84 mls/hr IV.CONT .[id number] [facility] Rx#:[id number] KCl Inj 10 MEQ In D5W Inj 1,000 1000 / 1000 ML @ 125 mls/hr IV.CONT .Q8H3M [facility] Rx#:[id number] Zyvox 600 mg Premix 300 ML @ 300 / 300 300 / 300 300 mls/hr IV.SIG Q12H [facility] Rx#: [id number] Oral 0 / 0 Output: Urine Amount (Catheter) 1000 / 1000 2550 / 2550 3-way Urethral 1000 / 1000 2550 / 2550 Gastric Drainage 700 / 700 650 / 650 Right Nare Nasogastric Tube 700 / 700 650 / 650 Other: Bladder Irrigation Fluid - Amount Instilled 3-way Urethral 500 2,100 Date of Last Bowel Movement 01/12/19 01/12/19 <NgPrerna - 01/14/19 08:57> Narrative: GENERAL: Pale, cooperative, well-developed depressedappearing male who is in no acute distress SKIN: Warm and dry. HEAD: Normocephalic. EYES: No scleral icterus. No injection or drainage. MOUTH: No signs of oral erythema or thrush. NECK: Supple, trachea midline. No JVD or lymphadenopathy or masses appreciated. Right-side neck tender to palpation CARDIOVASCULAR: Regular rate and rhythm without murmurs, gallops, or rubs. RESPIRATORY: Breath sounds equal bilaterally. No crackles or wheezing no accessory muscle use. GASTROINTESTINAL: Abdomen mildly firm, somewhat improved from yesterday. Distended, tender to palpation throughout the abdomen EXTREMITIES: No lower extremity edema, no calf tenderness bilaterally NEUROLOGICAL: Awake, alert, and oriented x 3. Non-focal. <Ng,Prerna 01/14/19 11:42> - Urinary Catheter Management 3-way Urethral Cath placed during this visit: no <Ingrid Workman 01/14/19 21:09> no <Ng,01/14/19 17:47> Reason for continuing: Gross Hematuria <Edin,01/14/19 08:57> Indwelling Urethral Catheter Cath placed during this visit: no <Ingrid Workman 01/14/19 21:09> yes, but has since been removed by the nurse <Edin,Prerna 17:47> Reason for continuing: Gross Hematuria <Ng,Prerna - 01/14/19 08:57> Insertion date: 01/09/19 <Ng,01/14/19 08:57> Insertion time: 17:35 <Ng,01/14/19 08:57> Removal date: 01/09/19 <Ng,Prerna - 01/14/19 08:57> Removal time: 17:30 <Ng,Prerna 01/14/19 08:57> Assessment and Plan - Assessment (1) Acute hemorrhagic cystitis Code(s): N30.01 - Acute cystitis with hematuria Status: Acute (2) Nutrition, metabolism, and development symptoms Code(s): R63.8 - Other symptoms and signs concerning food and fluid intake Status: Acute (3) Sepsis Code(s): A41.9 - Sepsis, unspecified organism Status: Acute (4) Hypertension Code(s): I10 - Essential (primary) hypertension Status: Chronic (5) Hyperlipidemia Code(s): E78.5 - Hyperlipidemia, unspecified Status: Acute (6) Prostate cancer Code(s): C61 - Malignant neoplasm of prostate Status: Chronic (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 Code(s): C61 - Malignant neoplasm of prostate; C79.51 - Secondary malignant neoplasm of bone Status: Acute <Prerna Jesus - 01/14/19 17:47> (1) Partial bowel obstruction Code(s): K56.600 - Partial intestinal obstruction, unspecified as to cause Status: Acute (2) Pneumonia Code(s): J18.9 - Pneumonia, unspecified organism Status: Acute (3) Complicated urinary tract infection Code(s): N39.0 - Urinary tract infection, site not specified Status: Acute (4) Gross hematuria Code(s): R31.0 - Gross hematuria Status: Resolved (5) Hypertension Code(s): I10 - Essential (primary) hypertension Status: Chronic (6) Prostate cancer Code(s): C61 - Malignant neoplasm of prostate Status: Chronic (7) Nutrition, metabolism, and development symptoms Code(s): R63.8 - Other symptoms and signs concerning food and fluid intake Status: Acute <Ingrid Workman - 01/14/19 21:09> - Assessment and Plan 1. Abdominal Pain- likely 2/2 adhesions vs infection status post radical proctectomy and orchiectomy 25yrs ago Patient currently NPO with NGT in place. To date, output is estimated to be about 2.4L. Yesterday's output was estimated to be a little over 5L PPI prophylaxis in place Follow-up KUB this a.m. showed similar degree of severity and distribution of dilated loops of small bowel compared to yesterday. General surgery recommends nonoperative management at this time but is closely following 2. Acute Hemorrhagic Cystitis Galvez catheter in place H&H stable at this time Currently on Pyridium and tamsulosin Hold oxybutynin due to antimotility side effects Discontinue bladder flushes 3. Sepsis Urine culture positive for Pseudomonas, currently on Levaquin 750 mg, ID is following Currently on linezolid 600 mg for MRSA coverage Blood cultures negative x2d Lactic acid normalized White cell count normalized Creatinine continue to improve, 1.02 Pro-calcitonin mildly elevated at 1.09 We will continue to monitor lab values 4. Nutrition, Metabolism, Development Symptoms Fluids: NS plus KCl 84mls/hour Electrolytes stable at this time, will replete as needed Vitamin B supplementation as needed Incentive Spirometry every 10mins while awake and encourage early ambulation Discussed with PT about importance of transfer from bed to chair to prevent deconditioning and to encourage bowel motility. PT recommends discharge to rehab 5. Hypertension Currently on metoprolol 6. Hyperlipidemia Currently on pravastatin 7. Prostate cancer with metastasis to bone Will follow-up with urologist at the [facility] for management VTE and IV PPI Prophylaxis Dispo:transfer to medical floor <Prerna Jesus - 01/14/19 17:41> - Attending Attestation Patient seen and examined, discussed with medical student and resident team. I agree with assessment and management as documented and discussed with me. I personally performed and verify history, physical, and medical decision making. Pt reports continued mild abd pain. He denies SOB. No BM and no flatus for 24 hours. <Ingrid Workman - 01/14/19 21:09>
--- NOTE | 2019-01-14 09:29 | XR ---
EXAM DATE: 01/14/2019 9:17 AM EST AGE/SEX: 83 years / Male INDICATIONS: Evaluate for obstruction. CLINICAL DATA: This is the patient's subsequent encounter. Patient reports that signs and symptoms h ave been present for 4 - 6 days and indicates a pain score of 2/10. MEDICAL/SURGICAL HISTORY: . Hypertension. Carcinoma, prostatic. Carcinoma, bone. . Cholecyste ctomy. Appendectomy. Prostatectomy. COMPARISON: C, ABDOMEN 1V KUB, 01/13/2019. . FINDINGS: Multiple distended loops of small bowel measuring up to 4.5 cm with a similar in severity to yesterd ay's exam. No distended loops of colon. Gastric tube tip and side-port project within the stomach. He moclips in the right upper quadrant. The visualized lower lungs are clear. Stable sclerosis right hem ipelvis. CONCLUSION: Similar degree of severity and distribution of dilated loops of small bowel compared to yesterday. Electronically signed by: Christopher Croft MD Board Certified Radiologist 01/14/2019 9:27 AM EST
--- NOTE | 2019-01-14 10:23 | P.PNGS ---
Subjective Interval history: DAILY PROGRESS NOTE FOR SURGICAL ATTENDING, DR. DEYANIRA LIRIANO Resting in bed No issues Physical Exam Vital signs: Vital Signs 01/13/19 10:29 01/13/19 11:00 01/13/19 11:12 Temperature Pulse Rate 106 H 107 H 107 H Respiratory Rate 29 H 45 H Blood Pressure 126/60 Pulse Oximetry 93 L 94 L 01/13/19 11:51 01/13/19 12:00 01/13/19 12:51 Temperature 97.9 F Pulse Rate 108 H 110 H 105 H Respiratory Rate 22 21 18 Blood Pressure 117/66 104/57 L Pulse Oximetry 95 95 95 01/13/19 13:00 01/13/19 13:51 01/13/19 14:00 Temperature Pulse Rate 106 H 101 H 101 H Respiratory Rate 18 19 18 Blood Pressure 114/59 L Pulse Oximetry 95 95 95 01/13/19 14:22 01/13/19 14:51 01/13/19 15:00 Temperature Pulse Rate 106 H 100 H 100 H Respiratory Rate 19 20 Blood Pressure 103/59 L Pulse Oximetry 94 L 95 01/13/19 16:00 01/13/19 16:51 01/13/19 17:00 Temperature 98.1 F Pulse Rate 102 H 100 H 101 H Respiratory Rate 24 21 21 Blood Pressure 111/63 Pulse Oximetry 95 96 95 01/13/19 17:51 01/13/19 18:00 01/13/19 19:00 Temperature Pulse Rate 98 H 100 H 100 H Respiratory Rate 25 H 22 24 Blood Pressure 133/67 Pulse Oximetry 95 95 96 01/13/19 19:51 01/13/19 20:00 01/13/19 20:04 Temperature 98.6 F Pulse Rate 96 H 97 H 100 H Respiratory Rate 18 22 Blood Pressure 150/71 H Pulse Oximetry 96 96 96 01/13/19 20:26 01/13/19 20:51 01/13/19 21:00 Temperature Pulse Rate 95 H 96 H Respiratory Rate 24 24 Blood Pressure 146/80 H Pulse Oximetry 95 96 96 01/13/19 22:05 01/14/19 00:00 01/14/19 00:20 Temperature 97.9 F Pulse Rate 99 H 91 H 90 Respiratory Rate 18 Blood Pressure 122/63 Pulse Oximetry 01/14/19 02:00 01/14/19 04:00 01/14/19 04:11 Temperature 98 F Pulse Rate 91 H 90 93 H Respiratory Rate 22 Blood Pressure 121/63 Pulse Oximetry 01/14/19 06:16 01/14/19 08:00 Temperature Pulse Rate 92 H Respiratory Rate Blood Pressure Pulse Oximetry 95 Intake & Output 01/13/19 01/14/19 01/14/19 18:59 06:59 18:59 Intake Total 1149 / 1149 1850 / 1850 Output Total 1700 / 1700 3200 / 3200 Balance -551 / -551 -1350 / -1350 Weight 71.6 kg Intake: IV 1149 / 1149 1850 / 1850 NS + KCl 20 mEq Inj 1,000 ML @ 849 / 849 550 / 550 84 mls/hr IV.CONT .[id number] [facility] Rx#:[id number] KCl Inj 10 MEQ In D5W Inj 1,000 1000 / 1000 ML @ 125 mls/hr IV.CONT .Q8H3M [facility] Rx#:[id number] Zyvox 600 mg Premix 300 ML @ 300 / 300 300 / 300 300 mls/hr IV.SIG Q12H [facility] Rx#: [id number] Oral 0 / 0 Output: Urine Amount (Catheter) 1000 / 1000 2550 / 2550 3-way Urethral 1000 / 1000 2550 / 2550 Gastric Drainage 700 / 700 650 / 650 Right Nare Nasogastric Tube 700 / 700 650 / 650 Other: Bladder Irrigation Fluid - Amount Instilled 3-way Urethral 500 2,100 Date of Last Bowel Movement 01/12/19 01/12/19 Narrative: Alert and awake Abd: soft; mildly distended; minimally tender - Urinary Catheter Management Indwelling Urethral Catheter Cath placed during this visit: yes, but has since been removed by the nurse Reason for continuing: Gross Hematuria Insertion date: 01/09/19 Insertion time: 17:35 Removal date: 01/09/19 Removal time: 17:30 3-way Urethral Cath placed during this visit: no Reason for continuing: Gross Hematuria Results - Labs 01/14/19 04:44 01/14/19 04:44 Laboratory Results - last 24 hr 01/14/19 01/14/19 04:44 04:44 WBC 7.9 RBC 3.77 L Hgb 11.3 L Hct 33.5 L MCV 88.9 MCH 30.0 MCHC 33.7 RDW 15.6 Plt Count 361 MPV 7.4 Prelim Diff (Auto) Slide review pending Neut % (Auto) 76.9 H Lymph % (Auto) 11.4 Adams % (Auto) 6.8 Eos % (Auto) 4.4 H Baso % (Auto) 0.5 Neut # (Auto) 6.1 Lymph # (Auto) 0.9 L Adams # (Auto) 0.5 Eos # (Auto) 0.3 Baso # (Auto) 0.0 WBC Differential Manual diff final Seg Neuts % (Manual) 74 H Band Neuts % (Manual) 4 Lymphocytes % (Manual) 11 Monocytes % (Manual) 3 Eosinophils % (Manual) 5 H Metamyelocytes % (Man) 3 H Abs Neuts (Manual) 6.4 Differential Comment . Platelet Estimate Normal Platelet Morphology Normal RBC Morphology Normal Sodium 142 Potassium 3.7 Chloride 112 H Carbon Dioxide 21.5 Anion Gap 9 BUN 24 H Creatinine 1.02 Estimated GFR 69 L Random Glucose 114 H Calcium 7.7 L Total Bilirubin 0.5 AST 15 ALT 22 Alkaline Phosphatase 184 H Total Protein 5.3 L Albumin 1.8 L Lipase 618 H - Imaging Imaging: ITS Impressions Liver Ultrasound 01/07/19 00:00 CONCLUSION: 1. Minimal increase in echogenicity of the liver without mass or hydronephrosis. 2. There is no ductal dilatation Chest X-Ray 01/11/19 00:00 CONCLUSION: Mild bilateral infiltrates Abdomen/Pelvis CT 01/12/19 00:00 CONCLUSION: 1. Abnormal bowel gas pattern with multiple loops of borderline dilated air- containing small bowel with multiple air-fluid levels. The distal most portion of the small bowel and colon are decompressed. The findings of concern for distal small bowel obstruction. 2. Small bilateral pleural effusions and consolidation both lung bases. 3. Stable appearance of the right ilium and ischium with sclerosis and thickening. 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 Metastatic prostate cancer could have a similar appearance. Abdomen X-Ray 01/14/19 00:00 CONCLUSION: Similar degree of severity and distribution of dilated loops of small bowel compared to yesterday. Assessment and Plan - Assessment (1) Acute hemorrhagic cystitis Code(s): N30.01 - Acute cystitis with hematuria Status: Acute (2) UTI (urinary tract infection) Code(s): N39.0 - Urinary tract infection, site not specified Status: Acute (3) Complicated urinary tract infection Code(s): N39.0 - Urinary tract infection, site not specified Status: Acute - Plan 83 year old male with recurrent prostate cancer; UTI; pneumonia; radiological findings of SBO -KUB continues to shows dilated bowel -NGT in place; output tampering down -Recommend continuing NGT to LIWS -Monitor I/O closely as GI loss is high -Discussed with patient SBO may be secondary to adhesions vs infection (UTI) -ID following -Will continue non operative management - Attending Attestation NOTE FOR SURGICAL ATTENDING, DR. DEYANIRA LIRIANO Reviewed the family medicine note where they had discussed with the and she did not want the patient to undergo surgical intervention. We will continue nonoperative management at this time unless the changes her mind I agree with above assessment and plan. The exam, history, and the medical decision-making described in the above note were completed with the assistance of the mid-level provider. I reviewed and agree with the findings presented. I attest that I had a [id number] encounter with the patient on the same day, and personally performed and documented my assessment and findings in the medical record. The following services were provided during this hospital visit: Chart data review, vital sign assessments/reviewing monitor data Review of consultations notes if present. Medication orders/review and/or management Ordering and/or reviewing lab tests Ordering and/or interpreting/reviewing x-rays and/or diagnostic studies Care of the patient and discussion of the patient with the care team Documentation time To help prompt me to consider important information that might be impacting today's encounter and assessment, Information from prior notes written by myself or my colleagues may have been "brought forward/copy and pasted" into today's note.
[2019-01-14] MEDS: Metoprolol Tartrate 25 MG Tablet PO SCH ×2 (10:35→20:58)
[2019-01-14] MEDS: Lactobacillus Acidophilus/L. Spores Tablet PO SCH ×2 (10:36→20:59)
[2019-01-14] MEDS: XTANDI 160 MG PO SCH (10:45)
[2019-01-14] MEDS ORDERED: Pantoprazole Inj 40 MG Vial IV.PUSH SCH (12:00)
[2019-01-14] MEDS: Pantoprazole Inj 40 MG Vial IV.PUSH SCH (12:49)
--- NOTE | 2019-01-14 15:57 | P.PNID ---
Subjective Remarks: Patient is an 83-year-old male, with known history of prostate cancer, recently diagnosed to have recurrence, and metastatic disease, presented to the hospital complaining of severe suprapubic abdominal pain. Patient apparently has had problem with urinary retention, and he has been requiring Galvez catheter for this problem since I believe September 2018. In October, he was hospitalized at the [facility] in [facility] due to urinary retention. According to the patient while he was in there they tried straight catheter procedure for his problem, and patient stated he developed hematuria. He was switched back to Galvez catheter, and he was discharged to the [facility] rehab. Patient stated that his catheter was changed in the rehab once, but he could not remember the last time it was changed. 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 In the ED they did a bladder scan, and apparently the volume was about 30 mL. He had hematuria at that time, and urine culture was sent and he was sent back to the rehab facility. Apparently the pain medication prescribed to him was not working, so the patient was brought back to the hospital and has now been admitted. Patient currently is complaining of nausea and dry heaves. He is also complaining of significant pain in the suprapubic region. He has gross hematuria and he is urine bag. Patient has been febrile up to 102. CT of the abdomen and pelvis is showing evidence of right hydro-ureteric nephrosis , and there was also possibly a bladder calculi. The bladder is decompressed. Patient gives a history of penicillin allergy with itching. Infectious disease consultation has been requested to assist with antibiotic management. Notes reviewed Temps ok NGT to suction Feels a little better CT with possible distal SBO Surgery evaluating - conservative measures for now WBC down to normal Creatinine better Getting CBI - urine looks clear Repeat UA better UC with PSAE sensitive Antibiotics: Levaquin Zyvox Lines: Lines ok Past Medical History: reviewed Allergies/Adverse Reactions: Allergies Penicillins Allergy (Verified 01/06/19 02:12) Itching Objective Vital Signs 01/13/19 16:00 01/13/19 16:51 01/13/19 17:00 Temperature 98.1 F Pulse Rate 102 H 100 H 101 H Respiratory Rate 24 21 21 Blood Pressure 111/63 Pulse Oximetry 95 96 95 01/13/19 17:51 01/13/19 18:00 01/13/19 19:00 Temperature Pulse Rate 98 H 100 H 100 H Respiratory Rate 25 H 22 24 Blood Pressure 133/67 Pulse Oximetry 95 95 96 01/13/19 19:51 01/13/19 20:00 01/13/19 20:04 Temperature 98.6 F Pulse Rate 96 H 97 H 100 H Respiratory Rate 18 22 Blood Pressure 150/71 H Pulse Oximetry 96 96 96 01/13/19 20:26 01/13/19 20:51 01/13/19 21:00 Temperature Pulse Rate 95 H 96 H Respiratory Rate 24 24 Blood Pressure 146/80 H Pulse Oximetry 95 96 96 01/13/19 22:05 01/14/19 00:00 01/14/19 00:20 Temperature 97.9 F Pulse Rate 99 H 91 H 90 Respiratory Rate 18 Blood Pressure 122/63 Pulse Oximetry 01/14/19 02:00 01/14/19 04:00 01/14/19 04:11 Temperature 98 F Pulse Rate 91 H 90 93 H Respiratory Rate 22 Blood Pressure 121/63 Pulse Oximetry 01/14/19 06:16 01/14/19 07:00 01/14/19 07:51 Temperature Pulse Rate 92 H 90 91 H Respiratory Rate 16 17 Blood Pressure 127/60 Pulse Oximetry 95 95 01/14/19 08:00 01/14/19 08:51 01/14/19 09:00 Temperature 97.7 F Pulse Rate 89 89 92 H Respiratory Rate 24 27 H 23 Blood Pressure 134/69 Pulse Oximetry 97 97 97 01/14/19 09:51 01/14/19 10:00 01/14/19 10:51 Temperature Pulse Rate 87 88 92 H Respiratory Rate 20 17 26 H Blood Pressure 112/58 L 115/81 Pulse Oximetry 96 98 96 01/14/19 11:00 01/14/19 11:51 01/14/19 12:00 Temperature 97.7 F Pulse Rate 92 H 89 88 Respiratory Rate 25 H 27 H 23 Blood Pressure 120/63 Pulse Oximetry 96 96 96 01/14/19 12:51 01/14/19 13:00 01/14/19 14:00 Temperature Pulse Rate 84 84 84 Respiratory Rate 26 H 20 Blood Pressure 131/73 Pulse Oximetry 97 96 Intake & Output 01/13/19 01/14/19 01/14/19 18:59 06:59 18:59 Intake Total 1149 / 1149 1850 / 1850 1305 / 1305 Output Total 1700 / 1700 3200 / 3200 Balance -551 / -551 -1350 / -1350 1305 / 1305 Weight 71.6 kg Intake: IV 1149 / 1149 1850 / 1850 1305 / 1305 NS + KCl 20 mEq Inj 1,000 ML @ 849 / 849 550 / 550 84 mls/hr IV.CONT .[id number] [facility] Rx#:[id number] KCl Inj 10 MEQ In D5W Inj 1,000 1000 / 1000 1005 / 1005 ML @ 125 mls/hr IV.CONT .Q8H3M [facility] Rx#:[id number] Zyvox 600 mg Premix 300 ML @ 300 / 300 300 / 300 300 / 300 300 mls/hr IV.SIG Q12H [facility] Rx#: [id number] Oral 0 / 0 Output: Urine Amount (Catheter) 1000 / 1000 2550 / 2550 3-way Urethral 1000 / 1000 2550 / 2550 Gastric Drainage 700 / 700 650 / 650 Right Nare Nasogastric Tube 700 / 700 650 / 650 Other: Bladder Irrigation Fluid - Amount Instilled 3-way Urethral 500 2,100 Date of Last Bowel Movement 01/12/19 01/12/19 01/12/19 01/12/19 03:48 Blood - Peripheral Aerobic Blood Culture - Preliminary No growth in 2 days 01/12/19 03:48 Blood - Peripheral Anaerobic Blood Culture - Preliminary No growth in 2 days 01/12/19 03:40 Blood - Peripheral Aerobic Blood Culture - Preliminary No growth in 2 days 01/12/19 03:40 Blood - Peripheral Anaerobic Blood Culture - Preliminary No growth in 2 days 01/07/19 12:40 Blood - Peripheral Aerobic Blood Culture - Final No growth in 5 days 01/07/19 12:40 Blood - Peripheral Anaerobic Blood Culture - Final QNS - See aerobic report. 01/07/19 12:35 Blood - Peripheral Aerobic Blood Culture - Final No growth in 5 days 01/07/19 12:35 Blood - Peripheral Anaerobic Blood Culture - Final QNS - See aerobic report. 01/06/19 09:51 Blood - Peripheral Aerobic Blood Culture - Final No growth in 5 days 01/06/19 09:51 Blood - Peripheral Anaerobic Blood Culture - Final No growth in 5 days 01/06/19 23:26 Blood - Peripheral Aerobic Blood Culture - Final No growth in 5 days 01/06/19 23:26 Blood - Peripheral Anaerobic Blood Culture - Final No growth in 5 days Lab - Hematology Results 01/13/19 01/14/19 03:47 04:44 WBC 8.6 7.9 RBC 3.99 L 3.77 L Hgb 12.0 L 11.3 L Hct 35.7 L 33.5 L MCV 89.6 88.9 MCH 30.1 30.0 MCHC 33.5 33.7 RDW 15.6 15.6 Plt Count 327 361 MPV 7.4 7.4 Prelim Diff (Auto) Slide review pending Neut % (Auto) 79.6 H 76.9 H Lymph % (Auto) 10.2 11.4 [place] % (Auto) 6.7 6.8 Eos % (Auto) 3.0 4.4 H Baso % (Auto) 0.5 0.5 Neut # (Auto) 6.8 6.1 Lymph # (Auto) 0.9 L 0.9 L [place] # (Auto) 0.6 0.5 Eos # (Auto) 0.3 0.3 Baso # (Auto) 0.0 0.0 WBC Differential . Manual diff final Seg Neuts % (Manual) 74 H Band Neuts % (Manual) 4 Lymphocytes % (Manual) 11 Monocytes % (Manual) 3 Eosinophils % (Manual) 5 H Metamyelocytes % (Man) 3 H Abs Neuts (Manual) 6.4 Differential Comment Auto diff final . Platelet Estimate Normal Platelet Morphology Normal RBC Morphology Normal Lab - Chemistry Results 01/13/19 01/14/19 03:47 04:44 Sodium 145 142 Potassium 4.2 3.7 Chloride 114 H 112 H Carbon Dioxide 22.0 21.5 Anion Gap 9 9 BUN 31 H 24 H Creatinine 1.18 1.02 Estimated GFR 59 L 69 L Random Glucose 89 114 H Calcium 7.8 L 7.7 L Total Bilirubin 0.6 0.5 AST 22 15 ALT 32 22 Alkaline Phosphatase 243 H 184 H Total Protein 5.6 L 5.3 L Albumin 1.9 L 1.8 L Lipase 618 H Imaging: ITS Impressions Liver Ultrasound 01/07/19 00:00 CONCLUSION: 1. Minimal increase in echogenicity of the liver without mass or hydronephrosis. 2. There is no ductal dilatation Chest X-Ray 01/11/19 00:00 CONCLUSION: Mild bilateral infiltrates Abdomen/Pelvis CT 01/12/19 00:00 CONCLUSION: 1. Abnormal bowel gas pattern with multiple loops of borderline dilated air- containing small bowel with multiple air-fluid levels. The distal most portion of the small bowel and colon are decompressed. The findings of concern for distal small bowel obstruction. 2. Small bilateral pleural effusions and consolidation both lung bases. 3. Stable appearance of the right ilium and ischium with sclerosis and thickening. 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 Metastatic prostate cancer could have a similar appearance. Abdomen X-Ray 01/14/19 00:00 CONCLUSION: Similar degree of severity and distribution of dilated loops of small bowel compared to yesterday. Physical Exam: GENERAL: awake and alert, not in respiratory distress. SKIN: Cool and dry. No generalized rash EYES: [place] conjunctiva. No petechia or hemorrhage. No scleral icterus. No injection or drainage. EARS, NOSE AND THROAT: Mucous membranes pink and moist. NGT to msuction NECK: Trachea midline. Supple and not tender, no meningeal signs CARDIOVASCULAR: Regular rate and rhythm. No murmurs, rubs or gallops heard RESPIRATORY: Clear to auscultation. Breath sounds equal bilaterally. No rales , wheezing or rhonchi ABDOMEN: Less distended abdomen, with diffuse tenderness. EXTREMITIES: No clubbing, cyanosis, or edema. No calf tenderness. : Galvez catheter in place, urine looks clear, getting CBI. NEUROLOGICAL: Non-focal. PSYCHIATRIC: calm and cooperative. LINE: No evidence of infection Assessment and Plan - Plan IMpression Possible sepsis due to UTI, better Acute Pyelonephritis, with gross hematuria, has hydroureteronephrosis on R PSAE infection UTI Hemorrhagic cystitis, better Hx prostate CA with bone mets Acute Renal insufficiency, improving Itching with PCN Vomiting, abdominal distension, possible SBO Hypoxemia, fluid most likely Recommendation Continue Levaquin IV as PSAE [place] sensitive. - will keep IV for now - give x 14 days Patient also on Zyvox - ok to D/C from ID standpoint I will be available prn Please call if with further ID issues or questions
[2019-01-14] MEDS: Mirtazapine 15 MG Tablet PO SCH (20:59)
[2019-01-14] MEDS: Senna/Docusate Sodium 8.6/50 MG Tablet PO SCH (21:02)
[2019-01-15] MEDS: Potassium Chloride Inj 10 MEQ in Dextrose 5% in Water Inj 1,000 ML IV.CONT SCH ×4 (05:31→14:44)
[2019-01-15] MEDS: Senna/Docusate Sodium 8.6/50 MG Tablet PO SCH ×2 (09:18→20:35)
--- NOTE | 2019-01-15 11:20 | P.PNFP ---
Subjective Interval history: Patient was seen at bedside this morning. There were no acute events overnight. Patient reports feeling somewhat better today. Patient also reports passing a large amount of flatus this morning which is the first time in several days. His NG tube output and management were discussed with him in detail. Patient denies any subjective fevers, chills, shortness of breath, chest pain, nausea, or vomiting. All questions were answered to the patient's satisfaction and he thanked us for our care. <Kerry GargManoj Oc - 01/15/19 13:56> Results - Labs Result diagrams: 01/16/19 04:57 01/16/19 04:57 <JiIngrid - 01/16/19 09:35> Abnormal lab results 01/15/19 01/15/19 01/16/19 Range/Units 11:40 11:40 04:57 WBC 11.4 H (4.0-11.0) th/mm3 RBC 3.91 L 4.16 L (4.50-5.90) mil/mm3 Hgb 12.3 L 12.4 L (13.0-17.0) gm/dL Hct 36.0 L 36.7 L (39.0-51.0) % Neut % (Auto) 75.4 H 82.0 H (16.0-70.0) % Lymph % (Auto) 8.0 L (9.0-44.0) % [place] % (Auto) 9.3 H (0.0-8.0) % Neut # (Auto) 9.3 H (1.8-7.7) th/mm3 Lymph # (Auto) 0.9 L (1.0-4.8) th/mm3 Seg Neuts % (Manual) 79 H (16-70) % Lymphocytes % (Manual) 5 L (9-44) % Monocytes % (Manual) 11 H (0-8) % Metamyelocytes % (Man) 3 H 3 H (0-1) % Myelocytes % (Man) 1 H 2 H (0-0) % Abs Neuts (Manual) 9.8 H (1.8-7.7) th/mm3 Sodium 134 L (136-145) meq/L Carbon Dioxide (21.0-32.0) meq/L Creatinine (0.60-1.30) mg/dL Estimated GFR 62 L (>89) mL/min Random Glucose 108 H (74-106) mg/dL Calcium 7.6 L (8.5-10.1) mg/dL Alkaline Phosphatase 152 H (45-117) U/L Total Protein 5.3 L (6.4-8.2) g/dL Albumin 1.8 L (3.4-5.0) g/dL Lipase 1794 H (73-393) U/L 01/16/19 Range/Units 04:57 WBC (4.0-11.0) th/mm3 RBC (4.50-5.90) mil/mm3 Hgb (13.0-17.0) gm/dL Hct (39.0-51.0) % Neut % (Auto) (16.0-70.0) % Lymph % (Auto) (9.0-44.0) % [place] % (Auto) (0.0-8.0) % Neut # (Auto) (1.8-7.7) th/mm3 Lymph # (Auto) (1.0-4.8) th/mm3 Seg Neuts % (Manual) (16-70) % Lymphocytes % (Manual) (9-44) % Monocytes % (Manual) (0-8) % Metamyelocytes % (Man) (0-1) % Myelocytes % (Man) (0-0) % Abs Neuts (Manual) (1.8-7.7) th/mm3 Sodium 132 L (136-145) meq/L Carbon Dioxide 20.2 L (21.0-32.0) meq/L Creatinine 1.37 H (0.60-1.30) mg/dL Estimated GFR 49 L (>89) mL/min Random Glucose 117 H (74-106) mg/dL Calcium 7.7 L (8.5-10.1) mg/dL Alkaline Phosphatase (45-117) U/L Total Protein (6.4-8.2) g/dL Albumin (3.4-5.0) g/dL Lipase (73-393) U/L Short CBC 01/15/19 01/16/19 Range/Units 11:40 04:57 WBC 9.2 11.4 H (4.0-11.0) th/mm3 Hgb 12.3 L 12.4 L (13.0-17.0) gm/dL Hct 36.0 L 36.7 L (39.0-51.0) % Plt Count 350 347 (150-450) th/mm3 BMP 01/15/19 01/16/19 11:40 04:57 Sodium 134 L 132 L Potassium 3.8 3.8 Chloride 103 D 101 Carbon Dioxide 21.1 20.2 L BUN 14 16 Creatinine 1.12 1.37 H Calcium 7.6 L 7.7 L Liver Function 01/15/19 Range/Units 11:40 Total Bilirubin 0.4 (0.2-1.0) mg/dL AST 17 (15-37) U/L ALT 16 (12-78) U/L Alkaline Phosphatase 152 H (45-117) U/L Albumin 1.8 L (3.4-5.0) g/dL <Ingrid Workman - 01/16/19 09:35> Physical Exam Vital signs: Vital Signs 01/15/19 11:00 01/15/19 11:40 01/15/19 15:00 Temperature 98.1 F 98.3 F Pulse Rate 99 H 97 H 92 H Respiratory Rate 20 20 Blood Pressure 116/57 L 114/63 Pulse Oximetry 91 L 93 L 01/15/19 20:00 01/15/19 20:14 01/16/19 00:00 Temperature 97.8 F 98.9 F Pulse Rate 124 H 111 H Respiratory Rate 18 16 Blood Pressure 104/80 100/63 Pulse Oximetry 93 L 94 L 93 L 01/16/19 04:00 Temperature 98.2 F Pulse Rate 97 H Respiratory Rate 16 Blood Pressure 116/60 Pulse Oximetry 95 Intake & Output 01/15/19 01/16/19 01/16/19 18:59 06:59 18:59 Intake Total 1005 / 1005 1005 / 1005 Output Total 1310 / 1310 1050 / 1050 Balance -305 / -305 -45 / -45 Weight 71.1 kg Intake: IV 1005 / 1005 1005 / 1005 KCl Inj 10 MEQ In D5W Inj 1,000 1005 / 1005 1005 / 1005 ML @ 125 mls/hr IV.CONT .Q8H3M [facility] Rx#:[id number] Oral 0 / 0 Bladder Irrigation Fluid - 0 / 0 Amount Retained Indwelling Urethral Catheter 0 / 0 Output: Urine 750 / 750 Stool 60 / 60 Urine Amount (Catheter) 500 / 500 3-way Urethral 500 / 500 Gastric Drainage 500 / 500 550 / 550 Right Nare Nasogastric Tube 500 / 500 550 / 550 Other: Date of Last Bowel Movement 01/15/19 01/15/19 # Incontinent Bowel Movements 1 <Ingrid Workman - 01/16/19 09:35> Vital Signs 01/14/19 11:51 01/14/19 12:00 01/14/19 12:51 Temperature 97.7 F Pulse Rate 89 88 84 Respiratory Rate 27 H 23 26 H Blood Pressure 120/63 131/73 Pulse Oximetry 96 96 97 01/14/19 13:00 01/14/19 13:51 01/14/19 14:00 Temperature Pulse Rate 84 83 81 Respiratory Rate 20 18 18 Blood Pressure 117/63 Pulse Oximetry 96 94 L 96 01/14/19 14:51 01/14/19 15:00 01/14/19 15:29 Temperature Pulse Rate 82 83 87 Respiratory Rate 17 22 24 Blood Pressure 121/68 123/77 Pulse Oximetry 94 L 97 95 01/14/19 15:51 01/14/19 16:00 01/14/19 16:51 Temperature 97.7 F Pulse Rate 93 H 91 H 88 Respiratory Rate 32 H 27 H 25 H Blood Pressure 120/67 126/70 Pulse Oximetry 97 93 L 95 01/14/19 17:00 01/14/19 18:00 01/14/19 19:42 Temperature Pulse Rate 87 89 Respiratory Rate 25 H Blood Pressure Pulse Oximetry 95 94 L 01/14/19 20:00 01/14/19 22:00 01/15/19 01:05 Temperature 97.6 F 98.9 F Pulse Rate 90 98 H 95 H Respiratory Rate 23 18 Blood Pressure 122/75 126/69 Pulse Oximetry 96 96 01/15/19 04:00 01/15/19 07:35 Temperature 98.1 F 98.3 F Pulse Rate 98 H 98 H Respiratory Rate 18 20 Blood Pressure 117/61 116/67 Pulse Oximetry 96 93 L Intake & Output 01/14/19 01/15/19 01/15/19 18:59 06:59 18:59 Intake Total 1455 / 1455 2009 Output Total 850 / 850 450 / 450 Balance 605 / 605 1560 / 1560 Intake: IV 1455 / 1455 2009 KCl Inj 10 MEQ In D5W Inj 1,000 1005 / 1005 2009 ML @ 125 mls/hr IV.CONT .Q8H3M [facility] Rx#:[id number] Levaquin 750 mg Premix Inj 150 150 / 150 ML @ 100 mls/hr IV.SIG Q48H [facility] Rx#:[id number] Zyvox 600 mg Premix 300 ML @ 300 / 300 300 mls/hr IV.SIG Q12H [facility] Rx#: [id number] Bladder Irrigation Fluid - 0 / 0 Amount Retained Indwelling Urethral Catheter 0 / 0 Output: Urine Amount (Catheter) 500 / 500 Indwelling Urethral Catheter 500 / 500 Gastric Drainage 350 / 350 450 / 450 Right Nare Nasogastric Tube 350 / 350 450 / 450 Other: Bladder Irrigation Fluid - Amount Instilled Indwelling Urethral Catheter 600 Bladder Irrigation Fluid - Amount Drained Indwelling Urethral Catheter 1,100 Date of Last Bowel Movement 01/12/19 01/12/19 <Manoj Henry - 01/15/19 11:20> Narrative: GENERAL: Elderly appearing male lying comfortably in bed in no acute distress. Copious amounts of bilious fluid draining through NG tube. SKIN: Warm and dry. No rash. EYES: No scleral icterus. No injection or drainage. PERRLA. EOMI. CARDIOVASCULAR: Regular rate and rhythm without obvious murmurs, gallops, or rubs. RESPIRATORY: Breath sounds equal bilaterally. No accessory muscle use. CTAB. GASTROINTESTINAL: Abdomen soft, no tenderness upon deep palpation, somewhat less distended than yesterday. Positive BS. GENITOURINARY: Kevin catheter in place draining yellow to clear urine. MUSCULOSKELETAL: No cyanosis or edema. Strength grossly WNL. non-tender calves BL. NEURO/PSYCH: Afocal. Awake, alert, and oriented x3. <Manoj Henry - 01/15/19 13:56> - Urinary Catheter Management 3-way Urethral Cath placed during this visit: no <Ingrid Workman - 01/16/19 09:35> no <Manoj Henry - 01/15/19 13:56> Reason for continuing: Gross Hematuria <Manoj Henry - 01/15/19 11:20> Indwelling Urethral Catheter Cath placed during this visit: no <Ingrid Workman - 01/16/19 09:35> yes, but has since been removed by the nurse <Manoj Henry 01/15/19 13:56> Reason for continuing: Gross Hematuria <Manoj Henry 01/15/19 11:20> Insertion date: 01/09/19 <Manoj Henry 01/15/19 11:20> Insertion time: 17:35 <Manoj Henry 01/15/19 11:20> Removal date: 01/09/19 <Manoj Henry 01/15/19 11:20> Removal time: 17:30 <Manoj Henry 01/15/19 11:20> Assessment and Plan - Assessment (1) Partial bowel obstruction Code(s): K56.600 - Partial intestinal obstruction, unspecified as to cause Status: Acute (2) Pneumonia Code(s): J18.9 - Pneumonia, unspecified organism Status: Acute (3) Complicated urinary tract infection Code(s): N39.0 - Urinary tract infection, site not specified Status: Acute (4) Gross hematuria Code(s): R31.0 - Gross hematuria Status: Resolved (5) Hypertension Code(s): I10 - Essential (primary) hypertension Status: Chronic (6) Prostate cancer Code(s): C61 - Malignant neoplasm of prostate Status: Chronic (7) Nutrition, metabolism, and development symptoms Code(s): R63.8 - Other symptoms and signs concerning food and fluid intake Status: Acute <Ingrid Workman - 01/16/19 09:35> (1) Partial bowel obstruction Code(s): K56.600 - Partial intestinal obstruction, unspecified as to cause Status: Acute Plan: Patient with multiple days of no bowel movements. He had worsening abd distension and n/v yesterday morning. KUB 01/11 showed: Abnormal bowel gas pattern with multiple distended loops of small bowel, distended stomach, and no dilated loops of colon. Patient placed NPO NG tube ordered IVF D5+ 10 MEq KCL @ 125mls/hr 01/14 KUB showing: Mild prominence of small bowel loops significantly decreased in prominence from previous study. Patient with improved abd distention and sxs this am Still passing flatus NG tube continues to drain bilious material Consider gen consult for evaluation of surgical intervention Possible KUB in a.m. Continue medical management (2) Pneumonia Code(s): J18.9 - Pneumonia, unspecified organism Status: Acute Plan: Patient with CXR showing mild BL infiltrate yesterday Continue Levaquin per ID Currently breathing comfortably on simple mask with o2 at 93% (3) Complicated urinary tract infection Code(s): N39.0 - Urinary tract infection, site not specified Status: Acute Plan: Blood cultures negative to date Urine culture positive for Pseudomonas, Continue Levaquin 750 mg, every 48 hours. Infectious disease on board follow recs (4) Gross hematuria Code(s): R31.0 - Gross hematuria Status: Resolved Plan: H/H stable Hematuria resolved, light yellow urine in kevin bag s/p transfused of 2 units of packed red blood cells Pain management: on morphine and Percocet PRN for pain control Currently on Pyridium (5) Hypertension Code(s): I10 - Essential (primary) hypertension Status: Chronic Plan: BP this am 120/59 Continue metoprolol 12.5 mg p.o. twice a day Continue to monitor blood pressure readings (6) Prostate cancer Code(s): C61 - Malignant neoplasm of prostate Status: Chronic Plan: Outpatient management for now. (7) Nutrition, metabolism, and development symptoms Code(s): R63.8 - Other symptoms and signs concerning food and fluid intake Status: Acute Plan: Fluids: D5 +10 mEq of potassium at 125 mL an hour Electrolytes: Replete as needed Nutrition: npo DVT prophylaxis: Not indicated due to gross hematuria on admission, SCDs bilaterally <Manoj Henry O - 01/15/19 13:37> - Assessment and Plan 1. Abdominal Pain- likely 2/2 adhesions vs infection status post radical proctectomy and orchiectomy 25yrs ago Patient currently NPO with NGT in place. To date, output is estimated to be about 2.4L. Yesterday's output was estimated to be a little over 5L PPI prophylaxis in place Follow-up KUB this a.m. showed similar degree of severity and distribution of dilated loops of small bowel compared to yesterday. General surgery recommends nonoperative management at this time but is closely following 2. Acute Hemorrhagic Cystitis Kevin catheter in place H&H stable at this time Currently on Pyridium and tamsulosin Hold oxybutynin due to antimotility side effects Discontinue bladder flushes 3. Sepsis Urine culture positive for Pseudomonas, currently on Levaquin 750 mg, ID is following Currently on linezolid 600 mg for MRSA coverage Blood cultures negative x2d Lactic acid normalized White cell count normalized Creatinine continue to improve, 1.02 Pro-calcitonin mildly elevated at 1.09 We will continue to monitor lab values 4. Nutrition, Metabolism, Development Symptoms Fluids: NS plus KCl 84mls/hour Electrolytes stable at this time, will replete as needed Vitamin B supplementation as needed Incentive Spirometry every 10mins while awake and encourage early ambulation Discussed with PT about importance of transfer from bed to chair to prevent deconditioning and to encourage bowel motility. PT recommends discharge to rehab 5. Hypertension Currently on metoprolol 6. Hyperlipidemia Currently on pravastatin 7. Prostate cancer with metastasis to bone Will follow-up with urologist at the [facility] for management VTE and IV PPI Prophylaxis Dispo:transfer to medical floor <Manoj Henry - 01/15/19 11:20> - Attending Attestation Patient seen and examined the morning of 01/15/2019, discussed with resident team. I agree with assessment and management as documented and discussed with me. Pt continues with drainage from NG tube, although amount has lessened. Large amount of Flatus this morning. No BM yet. Pt denies chest pain, SOB, palpitations, cough. Encouraged pt to get out of bed as able. <Ingrid Workman - 01/16/19 09:35>
[2019-01-15 12:17] LABS: Baso % (Auto) 0.5 % (0.0-2.0); Eos # (Auto) 0.3 th/mm3 (0.0-0.4); Eos % (Auto) 3.8 % (0.0-4.0); Hemoglobin 12.3 gm/dL (13.0-17.0); Mean Corpuscular HGB Conc 34.2 % (32.0-36.0); Mean Corpuscular Hemoglobin 31.4 pg (27.0-34.0); Mean Corpuscular Volume 91.9 fL (80.0-100.0); Mean Platelet Volume 7.4 fL (7.0-11.0); Mono # (Auto) 0.9 th/mm3 (0.0-0.9); Mono % (Auto) 9.3 % (0.0-8.0); Neut # (Auto) 6.9 th/mm3 (1.8-7.7); Neut % (Auto) 75.4 % (16.0-70.0); Platelet Count 350 th/mm3 (150-450); Red Blood Count 3.91 mil/mm3 (4.50-5.90); Red Cell Distribution Width 15.6 % (11.6-17.2); White Blood Count 9.2 th/mm3 (4.0-11.0)
[2019-01-15 12:40] LABS: Albumin 1.8 g/dL (3.4-5.0); Anion Gap 10 meq/L (5-15); Aspartate Aminotransferase 17 U/L (15-37); Blood Urea Nitrogen 14 mg/dL (7-18); Calcium 7.6 mg/dL (8.5-10.1); Carbon Dioxide 21.1 meq/L (21.0-32.0); Chloride 103 meq/L (98-107); Glomerular Filtration Rate 62 mL/min (>89); Glucose,Random 108 mg/dL (74-106); Potassium 3.8 meq/L (3.5-5.1); Sodium 134 meq/L (136-145)
[2019-01-15 12:43] LABS: Alanine Aminotransferase 16 U/L (12-78); Alkaline Phosphatase 152 U/L (45-117); Lipase 1794 U/L (73-393); Total Protein 5.3 g/dL (6.4-8.2)
[2019-01-15 13:00] LABS: Eosinophils 2 % (0-4); Lymphocytes 11 % (9-44); Metamyelocytes 3 % (0-1); Monocytes 11 % (0-8); Myelocytes 1 % (0-0); Platelet Estimate Normal (Normal); Platelet Morphology Normal (Normal); RBC Morphology Normal (Normal)
[2019-01-15] MEDS: Lactobacillus Acidophilus/L. Spores Tablet PO SCH ×2 (13:18→20:35)
[2019-01-15] MEDS: Pantoprazole Inj 40 MG Vial IV.PUSH SCH (13:19)
[2019-01-15] MEDS: Metoprolol Tartrate 25 MG Tablet PO SCH ×2 (13:19→20:36)
[2019-01-15] MEDS: XTANDI 160 MG PO SCH (13:19)
[2019-01-15] MEDS ORDERED: Dextrose 5%/NaCl 0.9% Inj 1,000 ML IV.CONT SCH (14:00)
--- NOTE | 2019-01-15 14:44 | P.PNGS ---
Subjective Patient reports: feels better (Reportedly had a large amount of flatus. Feels a little less distended. A little less tender.), flatus Physical Exam Vital signs: Vital Signs 01/14/19 14:51 01/14/19 15:00 01/14/19 15:29 Temperature Pulse Rate 82 83 87 Respiratory Rate 17 22 24 Blood Pressure 121/68 123/77 Pulse Oximetry 94 L 97 95 01/14/19 15:51 01/14/19 16:00 01/14/19 16:51 Temperature 97.7 F Pulse Rate 93 H 91 H 88 Respiratory Rate 32 H 27 H 25 H Blood Pressure 120/67 126/70 Pulse Oximetry 97 93 L 95 01/14/19 17:00 01/14/19 18:00 01/14/19 19:42 Temperature Pulse Rate 87 89 Respiratory Rate 25 H Blood Pressure Pulse Oximetry 95 94 L 01/14/19 20:00 01/14/19 22:00 01/15/19 01:05 Temperature 97.6 F 98.9 F Pulse Rate 90 98 H 95 H Respiratory Rate 23 18 Blood Pressure 122/75 126/69 Pulse Oximetry 96 96 01/15/19 04:00 01/15/19 07:00 01/15/19 07:35 Temperature 98.1 F 98.3 F Pulse Rate 98 H 97 H 98 H Respiratory Rate 18 20 Blood Pressure 117/61 116/67 Pulse Oximetry 96 93 L 01/15/19 11:00 01/15/19 11:40 Temperature 98.1 F Pulse Rate 99 H 97 H Respiratory Rate 20 Blood Pressure 116/57 L Pulse Oximetry 91 L Intake & Output 01/14/19 01/15/19 01/15/19 18:59 06:59 18:59 Intake Total 1455 / 1455 2009 1005 / 1005 Output Total 850 / 850 450 / 450 Balance 605 / 605 1560 / 1560 1005 / 1005 Intake: IV 1455 / 1455 2009 1005 / 1005 KCl Inj 10 MEQ In D5W Inj 1,000 1005 / 1005 2009 1005 / 1005 ML @ 125 mls/hr IV.CONT .Q8H3M [facility] Rx#:[id number] Levaquin 750 mg Premix Inj 150 150 / 150 ML @ 100 mls/hr IV.SIG Q48H [facility] Rx#:[id number] Zyvox 600 mg Premix 300 ML @ 300 / 300 300 mls/hr IV.SIG Q12H [facility] Rx#: [id number] Bladder Irrigation Fluid - 0 / 0 Amount Retained Indwelling Urethral Catheter 0 / 0 Output: Urine Amount (Catheter) 500 / 500 Indwelling Urethral Catheter 500 / 500 Gastric Drainage 350 / 350 450 / 450 Right Nare Nasogastric Tube 350 / 350 450 / 450 Other: Bladder Irrigation Fluid - Amount Instilled Indwelling Urethral Catheter 600 Bladder Irrigation Fluid - Amount Drained Indwelling Urethral Catheter Date of Last Bowel Movement 01/12/19 01/12/19 01/12/19 Narrative: Abdomen remains quiet, and moderately distended. He has a healed infraumbilical midline incision. His nasogastric tube continues to drain bilious fluid - Urinary Catheter Management Indwelling Urethral Catheter Cath placed during this visit: yes, but has since been removed by the nurse Reason for continuing: Gross Hematuria Insertion date: 01/09/19 Insertion time: 17:35 Removal date: 01/09/19 Removal time: 17:30 3-way Urethral Cath placed during this visit: no Reason for continuing: Gross Hematuria Results - Labs 01/15/19 11:40 01/15/19 11:40 Laboratory Results - last 24 hr 01/15/19 01/15/19 11:40 11:40 WBC 9.2 RBC 3.91 L Hgb 12.3 L Hct 36.0 L MCV 91.9 MCH 31.4 MCHC 34.2 RDW 15.6 Plt Count 350 MPV 7.4 Prelim Diff (Auto) Slide review pending Neut % (Auto) 75.4 H Lymph % (Auto) 11.0 [place] % (Auto) 9.3 H Eos % (Auto) 3.8 Baso % (Auto) 0.5 Neut # (Auto) 6.9 Lymph # (Auto) 1.0 [place] # (Auto) 0.9 Eos # (Auto) 0.3 Baso # (Auto) 0.0 WBC Differential Manual diff final Seg Neuts % (Manual) 69 Band Neuts % (Manual) 3 Lymphocytes % (Manual) 11 Monocytes % (Manual) 11 H Eosinophils % (Manual) 2 Metamyelocytes % (Man) 3 H Myelocytes % (Man) 1 H Abs Neuts (Manual) 7.0 Differential Comment . Platelet Estimate Normal Platelet Morphology Normal RBC Morphology Normal Sodium 134 L Potassium 3.8 Chloride 103 D Carbon Dioxide 21.1 Anion Gap 10 BUN 14 Creatinine 1.12 Estimated GFR 62 L Random Glucose 108 H Calcium 7.6 L Total Bilirubin 0.4 AST 17 ALT 16 Alkaline Phosphatase 152 H Total Protein 5.3 L Albumin 1.8 L Lipase 1794 H - Imaging Imaging: ITS Impressions Liver Ultrasound 01/07/19 00:00 CONCLUSION: 1. Minimal increase in echogenicity of the liver without mass or hydronephrosis. 2. There is no ductal dilatation Chest X-Ray 01/11/19 00:00 CONCLUSION: Mild bilateral infiltrates Abdomen/Pelvis CT 01/12/19 00:00 CONCLUSION: 1. Abnormal bowel gas pattern with multiple loops of borderline dilated air- containing small bowel with multiple air-fluid levels. The distal most portion of the small bowel and colon are decompressed. The findings of concern for distal small bowel obstruction. 2. Small bilateral pleural effusions and consolidation both lung bases. 3. Stable appearance of the right ilium and ischium with sclerosis and thickening. 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 Metastatic prostate cancer could have a similar appearance. Abdomen X-Ray 01/14/19 00:00 CONCLUSION: Similar degree of severity and distribution of dilated loops of small bowel compared to yesterday. Assessment and Plan - Assessment (1) Acute hemorrhagic cystitis Code(s): N30.01 - Acute cystitis with hematuria Status: Acute (2) UTI (urinary tract infection) Code(s): N39.0 - Urinary tract infection, site not specified Status: Acute (3) Complicated urinary tract infection Code(s): N39.0 - Urinary tract infection, site not specified Status: Acute - Plan Continue current nonoperative management. Until his abdominal distention improves more , I would continue nasogastric tube decompression. Continue supportive therapy.
[2019-01-15] MEDS: Mirtazapine 15 MG Tablet PO SCH (20:35)
[2019-01-16] MEDS: Potassium Chloride Inj 10 MEQ in Dextrose 5% in Water Inj 1,000 ML IV.CONT SCH ×8 (03:50→20:12)
[2019-01-16 05:42] LABS: Baso # (Auto) 0.1 th/mm3 (0.0-0.2); Baso % (Auto) 0.5 % (0.0-2.0); Eos # (Auto) 0.2 th/mm3 (0.0-0.4); Eos % (Auto) 1.7 % (0.0-4.0); Hematocrit 36.7 % (39.0-51.0); Hemoglobin 12.4 gm/dL (13.0-17.0); Lymph # (Auto) 0.9 th/mm3 (1.0-4.8); Mean Corpuscular HGB Conc 33.7 % (32.0-36.0); Mean Corpuscular Hemoglobin 29.8 pg (27.0-34.0); Mean Corpuscular Volume 88.4 fL (80.0-100.0); Mean Platelet Volume 7.5 fL (7.0-11.0); Mono # (Auto) 0.9 th/mm3 (0.0-0.9); Mono % (Auto) 7.8 % (0.0-8.0); Neut # (Auto) 9.3 th/mm3 (1.8-7.7); Platelet Count 347 th/mm3 (150-450); Red Blood Count 4.16 mil/mm3 (4.50-5.90); Red Cell Distribution Width 15.2 % (11.6-17.2); White Blood Count 11.4 th/mm3 (4.0-11.0)
[2019-01-16 06:01] LABS: Calcium 7.7 mg/dL (8.5-10.1); Carbon Dioxide 20.2 meq/L (21.0-32.0); Potassium 3.8 meq/L (3.5-5.1)
[2019-01-16 07:38] LABS: Lymphocytes 5 % (9-44); Metamyelocytes 3 % (0-1); Monocytes 8 % (0-8); Myelocytes 2 % (0-0)
[2019-01-16 07:39] LABS: Platelet Estimate Normal (Normal); Platelet Morphology Normal (Normal)
[2019-01-16] MEDS: Metoprolol Tartrate 25 MG Tablet PO SCH ×2 (09:38→22:35)
[2019-01-16] MEDS: Lactobacillus Acidophilus/L. Spores Tablet PO SCH ×2 (09:38→22:35)
[2019-01-16] MEDS: XTANDI 160 MG PO SCH (09:39)
[2019-01-16] MEDS: Senna/Docusate Sodium 8.6/50 MG Tablet PO SCH ×2 (09:39→22:35)
--- NOTE | 2019-01-16 10:01 | XR ---
EXAM DATE: 01/16/2019 9:50 AM EST AGE/SEX: 83 years / Male INDICATIONS: Abdomen obstruction CLINICAL DATA: This is the patient's subsequent encounter. Patient reports that signs and symptoms h ave been present for 4 - 6 days and indicates a pain score of 0/10. MEDICAL/SURGICAL HISTORY: . Hypertension. Carcinoma, prostatic. Carcinoma, bone. . . . Cholec ystectomy. Appendectomy. Prostatectomy COMPARISON: C, ABDOMEN 1V KUB, 01/14/2019. . FINDINGS: Mild distention of multiple small bowel loops, slightly less prominent. Surgical clips in the pelvis . No abnormal masses, calcifications, or organomegaly is seen. Prominent sclerosis throughout the pe lvis but greater throughout the right pelvis. Nasogastric tube tip in stomach. CONCLUSION: Mildly distended small bowel loops, slightly improved. Electronically signed by: Ariel You MD Board Certified Radiologist 01/16/2019 10:00 AM EST
--- NOTE | 2019-01-16 11:34 | P.PNFP ---
Addendum entered and electronically signed by Portia Rangel MD, R2 14:56: Patient with uptrending lipase, today 2730. Will order CT abs/pelvis Original Note: Subjective Interval history: Patient seen and examined at bedside this am. No acute events overnight. Patient reports he feel the same, no significant change from yesterday. Per nurse pt had a smear of a BM noted yesterday. patient reports he last passed flatus yesterday. Denies cp, sob, fever, chills, n/v or abd pain. <Portia Kellogg - 01/16/19 14:51> Results - Labs Result diagrams: 01/16/19 04:57 01/16/19 04:57 <Ingrid Workman - 01/16/19 21:15> Abnormal lab results 01/16/19 01/16/19 01/16/19 Range/Units 04:57 04:57 04:57 WBC 11.4 H (4.0-11.0) th/mm3 RBC 4.16 L (4.50-5.90) mil/mm3 Hgb 12.4 L (13.0-17.0) gm/dL Hct 36.7 L (39.0-51.0) % Neut % (Auto) 82.0 H (16.0-70.0) % Lymph % (Auto) 8.0 L (9.0-44.0) % Neut # (Auto) 9.3 H (1.8-7.7) th/mm3 Lymph # (Auto) 0.9 L (1.0-4.8) th/mm3 Seg Neuts % (Manual) 79 H (16-70) % Lymphocytes % (Manual) 5 L (9-44) % Metamyelocytes % (Man) 3 H (0-1) % Myelocytes % (Man) 2 H (0-0) % Abs Neuts (Manual) 9.8 H (1.8-7.7) th/mm3 Sodium 132 L (136-145) meq/L Carbon Dioxide 20.2 L (21.0-32.0) meq/L Creatinine 1.37 H (0.60-1.30) mg/dL Estimated GFR 49 L (>89) mL/min Random Glucose 117 H (74-106) mg/dL Calcium 7.7 L (8.5-10.1) mg/dL Lipase 2730 H (73-393) U/L Short CBC 01/16/19 Range/Units 04:57 WBC 11.4 H (4.0-11.0) th/mm3 Hgb 12.4 L (13.0-17.0) gm/dL Hct 36.7 L (39.0-51.0) % Plt Count 347 (150-450) th/mm3 [facility] 01/16/19 04:57 Sodium 132 L Potassium 3.8 Chloride 101 Carbon Dioxide 20.2 L BUN 16 Creatinine 1.37 H Calcium 7.7 L <Ingrid Workman - 01/16/19 21:15> Abnormal lab results 01/15/19 01/15/19 01/16/19 Range/Units 11:40 11:40 04:57 WBC 11.4 H (4.0-11.0) th/mm3 RBC 3.91 L 4.16 L (4.50-5.90) mil/mm3 Hgb 12.3 L 12.4 L (13.0-17.0) gm/dL Hct 36.0 L 36.7 L (39.0-51.0) % Neut % (Auto) 75.4 H 82.0 H (16.0-70.0) % Lymph % (Auto) 8.0 L (9.0-44.0) % [place] % (Auto) 9.3 H (0.0-8.0) % Neut # (Auto) 9.3 H (1.8-7.7) th/mm3 Lymph # (Auto) 0.9 L (1.0-4.8) th/mm3 Seg Neuts % (Manual) 79 H (16-70) % Lymphocytes % (Manual) 5 L (9-44) % Monocytes % (Manual) 11 H (0-8) % Metamyelocytes % (Man) 3 H 3 H (0-1) % Myelocytes % (Man) 1 H 2 H (0-0) % Abs Neuts (Manual) 9.8 H (1.8-7.7) th/mm3 Sodium 134 L (136-145) meq/L Carbon Dioxide (21.0-32.0) meq/L Creatinine (0.60-1.30) mg/dL Estimated GFR 62 L (>89) mL/min Random Glucose 108 H (74-106) mg/dL Calcium 7.6 L (8.5-10.1) mg/dL Alkaline Phosphatase 152 H (45-117) U/L Total Protein 5.3 L (6.4-8.2) g/dL Albumin 1.8 L (3.4-5.0) g/dL Lipase 1794 H (73-393) U/L 01/16/19 01/16/19 Range/Units 04:57 04:57 WBC (4.0-11.0) th/mm3 RBC (4.50-5.90) mil/mm3 Hgb (13.0-17.0) gm/dL Hct (39.0-51.0) % Neut % (Auto) (16.0-70.0) % Lymph % (Auto) (9.0-44.0) % [place] % (Auto) (0.0-8.0) % Neut # (Auto) (1.8-7.7) th/mm3 Lymph # (Auto) (1.0-4.8) th/mm3 Seg Neuts % (Manual) (16-70) % Lymphocytes % (Manual) (9-44) % Monocytes % (Manual) (0-8) % Metamyelocytes % (Man) (0-1) % Myelocytes % (Man) (0-0) % Abs Neuts (Manual) (1.8-7.7) th/mm3 Sodium 132 L (136-145) meq/L Carbon Dioxide 20.2 L (21.0-32.0) meq/L Creatinine 1.37 H (0.60-1.30) mg/dL Estimated GFR 49 L (>89) mL/min Random Glucose 117 H (74-106) mg/dL Calcium 7.7 L (8.5-10.1) mg/dL Alkaline Phosphatase (45-117) U/L Total Protein (6.4-8.2) g/dL Albumin (3.4-5.0) g/dL Lipase 2730 H (73-393) U/L Short CBC 01/15/19 01/16/19 Range/Units 11:40 04:57 WBC 9.2 11.4 H (4.0-11.0) th/mm3 Hgb 12.3 L 12.4 L (13.0-17.0) gm/dL Hct 36.0 L 36.7 L (39.0-51.0) % Plt Count 350 347 (150-450) th/mm3 BMP 01/15/19 01/16/19 11:40 04:57 Sodium 134 L 132 L Potassium 3.8 3.8 Chloride 103 D 101 Carbon Dioxide 21.1 20.2 L BUN 14 16 Creatinine 1.12 1.37 H Calcium 7.6 L 7.7 L Liver Function 01/15/19 Range/Units 11:40 Total Bilirubin 0.4 (0.2-1.0) mg/dL AST 17 (15-37) U/L ALT 16 (12-78) U/L Alkaline Phosphatase 152 H (45-117) U/L Albumin 1.8 L (3.4-5.0) g/dL <Escobar Kelloggly D - 01/16/19 11:34> - Imaging Impressions Abdomen X-Ray 01/16/19 09:00 CONCLUSION: Mildly distended small bowel loops, slightly improved. <Ingrid Workman - 01/16/19 21:15> Impressions Abdomen X-Ray 01/16/19 09:00 CONCLUSION: Mildly distended small bowel loops, slightly improved. <Jeremiah Rangel,Portia D - 01/16/19 11:34> Physical Exam Vital signs: Vital Signs 01/16/19 00:00 01/16/19 04:00 01/16/19 08:00 Temperature 98.9 F 98.2 F 98.4 F Pulse Rate 111 H 97 H 100 H Respiratory Rate 16 16 22 Blood Pressure 100/63 116/60 99/57 L Pulse Oximetry 93 L 95 93 L 01/16/19 12:00 01/16/19 16:00 01/16/19 20:00 Temperature 98.1 F 97.9 F 97.8 F Pulse Rate 95 H 97 H 75 Respiratory Rate 20 20 18 Blood Pressure 110/58 L 102/59 L 103/61 Pulse Oximetry 94 L 96 93 L 01/16/19 20:24 Temperature Pulse Rate Respiratory Rate Blood Pressure Pulse Oximetry 96 Intake & Output 01/16/19 01/16/19 01/17/19 06:59 18:59 06:59 Intake Total 1005 / 1005 1005 / 1005 Output Total 1050 / 1050 150 / 150 Balance -45 / -45 855 / 855 Weight 71.1 kg Intake: IV 1005 / 1005 1005 / 1005 KCl Inj 10 MEQ In D5W Inj 1,000 1005 / 1005 1005 / 1005 ML @ 125 mls/hr IV.CONT .Q8H3M [facility] Rx#:[id number] Output: Urine Amount (Catheter) 500 / 500 3-way Urethral 500 / 500 Gastric Drainage 550 / 550 150 / 150 Right Nare Nasogastric Tube 550 / 550 150 / 150 Other: Date of Last Bowel Movement 01/15/19 01/16/19 # Incontinent Bowel Movements 1 <Ingrid Workman - 01/16/19 21:15> Vital Signs 01/15/19 11:40 01/15/19 15:00 01/15/19 20:00 Temperature 98.1 F 98.3 F 97.8 F Pulse Rate 97 H 92 H 124 H Respiratory Rate 20 20 18 Blood Pressure 116/57 L 114/63 104/80 Pulse Oximetry 91 L 93 L 93 L 01/15/19 20:14 01/16/19 00:00 01/16/19 04:00 Temperature 98.9 F 98.2 F Pulse Rate 111 H 97 H Respiratory Rate 16 16 Blood Pressure 100/63 116/60 Pulse Oximetry 94 L 93 L 95 01/16/19 08:00 Temperature 98.4 F Pulse Rate 100 H Respiratory Rate 22 Blood Pressure 99/57 L Pulse Oximetry 93 L Intake & Output 01/15/19 01/16/19 01/16/19 18:59 06:59 18:59 Intake Total 1005 / 1005 1005 / 1005 Output Total 1310 / 1310 1050 / 1050 Balance -305 / -305 -45 / -45 Weight 71.1 kg Intake: IV 1005 / 1005 1005 / 1005 KCl Inj 10 MEQ In D5W Inj 1,000 1005 / 1005 1005 / 1005 ML @ 125 mls/hr IV.CONT .Q8H3M [facility] Rx#:[id number] Oral 0 / 0 Bladder Irrigation Fluid - 0 / 0 Amount Retained Indwelling Urethral Catheter 0 / 0 Output: Urine 750 / 750 Stool 60 / 60 Urine Amount (Catheter) 500 / 500 3-way Urethral 500 / 500 Gastric Drainage 500 / 500 550 / 550 Right Nare Nasogastric Tube 500 / 500 550 / 550 Other: Date of Last Bowel Movement 01/15/19 01/15/19 # Incontinent Bowel Movements 1 <Escobar Kelloggly D 01/16/19 11:34> Narrative: GENERAL: Elderly appearing male lying comfortably in bed in no acute distress. NG tube clamped due to receiving p.o. medications, suction will be resumed after 1 hour. Canister on wall with approximately 50 cc of copious green fluid. SKIN: Warm and dry. No rash. EYES: No scleral icterus. No injection or drainage. PERRLA. EOMI. CARDIOVASCULAR: Regular rate and rhythm without obvious murmurs, gallops, or rubs. RESPIRATORY: Breath sounds equal bilaterally. No accessory muscle use. CTAB. GASTROINTESTINAL: Abdomen soft, tender upon deep palpation, hypo active BS. GENITOURINARY: Kevin catheter in place draining yellow to clear urine. MUSCULOSKELETAL: No cyanosis or edema. Strength grossly WNL. non-tender calves BL. NEURO/PSYCH: Afocal. Awake, alert, and oriented x3. <Derrelldo Escobar Rangelly D - 01/16/19 14:51> - Urinary Catheter Management 3-way Urethral Cath placed during this visit: no <Ingrid Workman - 01/16/19 21:15> no <Calzado Claire,Portia D 01/16/19 14:51> Reason for continuing: Gross Hematuria <Calzado Claire,Portia D 01/16/19 11:34> Indwelling Urethral Catheter Cath placed during this visit: no <Ingrid Workman - 01/16/19 21:15> yes, but has since been removed by the nurse <Calzado Claire Portia D 01/16/19 14:51> Reason for continuing: Gross Hematuria <Calzado ClairePortia D - 01/16/19 11:34> Insertion date: 01/09/19 <Calzado R2,Portia D - 01/16/19 11:34> Insertion time: 17:35 <Calzado R2,Portia D - 01/16/19 11:34> Removal date: 01/09/19 <Calzado R2,Portia D - 01/16/19 11:34> Removal time: 17:30 <Jeremiah R2Portia D - 01/16/19 11:34> Assessment and Plan - Assessment (1) Partial bowel obstruction Code(s): K56.600 - Partial intestinal obstruction, unspecified as to cause Status: Acute (2) Pneumonia Code(s): J18.9 - Pneumonia, unspecified organism Status: Acute (3) Complicated urinary tract infection Code(s): N39.0 - Urinary tract infection, site not specified Status: Acute (4) Gross hematuria Code(s): R31.0 - Gross hematuria Status: Resolved (5) Hypertension Code(s): I10 - Essential (primary) hypertension Status: Chronic (6) Prostate cancer Code(s): C61 - Malignant neoplasm of prostate Status: Chronic (7) Nutrition, metabolism, and development symptoms Code(s): R63.8 - Other symptoms and signs concerning food and fluid intake Status: Acute <Ingrid Workman - 01/16/19 21:15> (1) Partial bowel obstruction Code(s): K56.600 - Partial intestinal obstruction, unspecified as to cause Status: Acute Plan: Patient with multiple days of no bowel movements. He had worsening abd distension and n/v on 01/11. KUB 01/11 showed: Abnormal bowel gas pattern with multiple distended loops of small bowel, distended stomach, and no dilated loops of colon. NPO NG tube ordered IVF D5+ 10 MEq KCL @ 125mls/hr 01/14 KUB showing: Mild prominence of small bowel loops significantly decreased in prominence from previous study. Patient with improved abd distention and sxs this am Last passed flatus yesterday when asked this am NG tube continues to drain bilious material Physical therapy ordered daily Gen surgery consulted, appreciate rec Continue medical management (2) Pneumonia Code(s): J18.9 - Pneumonia, unspecified organism Status: Acute Plan: Patient with CXR showing mild BL infiltrate on 01/11 Continue Levaquin per ID Currently breathing comfortably on room air at 94% (3) Complicated urinary tract infection Code(s): N39.0 - Urinary tract infection, site not specified Status: Acute Plan: Blood cultures negative to date Urine culture positive for Pseudomonas, Continue Levaquin 750 mg, every 48 hours. Infectious disease on board follow recs (4) Gross hematuria Code(s): R31.0 - Gross hematuria Status: Resolved Plan: H/H stable Hematuria resolved, light yellow urine in kevin bag s/p transfused of 2 units of packed red blood cells Pain management: on morphine and Percocet PRN for pain control Currently on Pyridium (5) Hypertension Code(s): I10 - Essential (primary) hypertension Status: Chronic Plan: Blood pressure stable Continue metoprolol 12.5 mg p.o. twice a day Continue to monitor blood pressure readings (6) Prostate cancer Code(s): C61 - Malignant neoplasm of prostate Status: Chronic Plan: Outpatient management for now. (7) Nutrition, metabolism, and development symptoms Code(s): R63.8 - Other symptoms and signs concerning food and fluid intake Status: Acute Plan: Fluids: D5 +10 mEq of potassium at 125 mL an hour Electrolytes: Replete as needed Nutrition: npo DVT prophylaxis: Not indicated due to gross hematuria on admission, SCDs bilaterally <Portia Kellogg D - 01/16/19 14:41> - Assessment and Plan 1. Abdominal Pain- likely 2/2 adhesions vs infection status post radical proctectomy and orchiectomy 25yrs ago Patient currently NPO with NGT in place. To date, output is estimated to be about 2.4L. Yesterday's output was estimated to be a little over 5L PPI prophylaxis in place Follow-up KUB this a.m. showed similar degree of severity and distribution of dilated loops of small bowel compared to yesterday. General surgery recommends nonoperative management at this time but is closely following 2. Acute Hemorrhagic Cystitis Kevin catheter in place H&H stable at this time Currently on Pyridium and tamsulosin Hold oxybutynin due to antimotility side effects Discontinue bladder flushes 3. Sepsis Urine culture positive for Pseudomonas, currently on Levaquin 750 mg, ID is following Currently on linezolid 600 mg for MRSA coverage Blood cultures negative x2d Lactic acid normalized White cell count normalized Creatinine continue to improve, 1.02 Pro-calcitonin mildly elevated at 1.09 We will continue to monitor lab values 4. Nutrition, Metabolism, Development Symptoms Fluids: NS plus KCl 84mls/hour Electrolytes stable at this time, will replete as needed Vitamin B supplementation as needed Incentive Spirometry every 10mins while awake and encourage early ambulation Discussed with PT about importance of transfer from bed to chair to prevent deconditioning and to encourage bowel motility. PT recommends discharge to rehab 5. Hypertension Currently on metoprolol 6. Hyperlipidemia Currently on pravastatin 7. Prostate cancer with metastasis to bone Will follow-up with urologist at the [place] [facility] for management VTE and IV PPI Prophylaxis Dispo:transfer to medical floor <Portia Kellogg - 01/16/19 11:34> - Attending Attestation Patient seen and examined this morning, discussed with Dr Daniels. I agree with assessment and management as documented and discussed with me. Pt reports no more flatus since yesterday morning. No nausea, no vomiting, no abd pain. BM described as small/smear in the last 24 hours. Encouraged pt to sit upright in bed or get to chair (with assistance) as much as able. Continue NG tube. CT abd for uptrending lipase. <Ingrid Workman - 01/16/19 21:15>
--- NOTE | 2019-01-16 11:55 | P.DIET ---
Nutritional Evaluation Type of nutrition evaluation: initial (Pt NPO x5 days) Assessment Assessment: NPO screen; Pt now NPO for 5 days receiving NGT suction 2/2 partial bowel obstruction. If pt to remain NPO, will need to consider alternative route for nutrition. Dietitian will continue to monitor NPO status and make further recommendations as appropriate.
[2019-01-16] MEDS: Pantoprazole Inj 40 MG Vial IV.PUSH SCH (13:15)
[2019-01-16] MEDS ORDERED: Diatrizoate Meglum/Diatrizoate Sod Liq 9 ML UDC PO ONE (14:57)
--- NOTE | 2019-01-16 16:44 | P.PN ---
Subjective Interval history: Feels comfortable; still fair amount of NG output (1050ml) but he is not distended and has no nausea or emesis. Physical Exam Vital signs: Vital Signs 01/15/19 20:00 01/15/19 20:14 01/16/19 00:00 Temperature 97.8 F 98.9 F Pulse Rate 124 H 111 H Respiratory Rate 18 16 Blood Pressure 104/80 100/63 Pulse Oximetry 93 L 94 L 93 L 01/16/19 04:00 01/16/19 08:00 01/16/19 12:00 Temperature 98.2 F 98.4 F 98.1 F Pulse Rate 97 H 100 H 95 H Respiratory Rate 16 22 20 Blood Pressure 116/60 99/57 L 110/58 L Pulse Oximetry 95 93 L 94 L Intake & Output 01/15/19 01/16/19 01/16/19 18:59 06:59 18:59 Intake Total 1005 / 1005 1005 / 1005 1005 / 1005 Output Total 1310 / 1310 1050 / 1050 Balance -305 / -305 -45 / -45 1005 / 1005 Weight 71.1 kg Intake: IV 1005 / 1005 1005 / 1005 1005 / 1005 KCl Inj 10 MEQ In D5W Inj 1,000 1005 / 1005 1005 / 1005 1005 / 1005 ML @ 125 mls/hr IV.CONT .Q8H3M [facility] Rx#:[id number] Oral 0 / 0 Bladder Irrigation Fluid - 0 / 0 Amount Retained Indwelling Urethral Catheter 0 / 0 Output: Urine 750 / 750 Stool 60 / 60 Urine Amount (Catheter) 500 / 500 3-way Urethral 500 / 500 Gastric Drainage 500 / 500 550 / 550 Right Nare Nasogastric Tube 500 / 500 550 / 550 Other: Date of Last Bowel Movement 01/15/19 01/15/19 01/15/19 # Incontinent Bowel Movements 1 - Constitutional no acute distress - Routine Abdominal Exam Present: soft Comments: Nontender minimally distended NG with green output - Urinary Catheter Management Indwelling Urethral Catheter Cath placed during this visit: yes, but has since been removed by the nurse Reason for continuing: Gross Hematuria Insertion date: 01/09/19 Insertion time: 17:35 Removal date: 01/09/19 Removal time: 17:30 3-way Urethral Cath placed during this visit: no Reason for continuing: Gross Hematuria Results - Labs CBC & Chem 7: 01/16/19 04:57 01/16/19 04:57 Laboratory Results - last 24 hr 01/16/19 01/16/19 01/16/19 04:57 04:57 04:57 WBC 11.4 H RBC 4.16 L Hgb 12.4 L Hct 36.7 L MCV 88.4 D MCH 29.8 MCHC 33.7 RDW 15.2 Plt Count 347 MPV 7.5 Prelim Diff (Auto) Slide review pending Neut % (Auto) 82.0 H Lymph % (Auto) 8.0 L [place] % (Auto) 7.8 Eos % (Auto) 1.7 Baso % (Auto) 0.5 Neut # (Auto) 9.3 H Lymph # (Auto) 0.9 L [place] # (Auto) 0.9 Eos # (Auto) 0.2 Baso # (Auto) 0.1 WBC Differential Manual diff final Seg Neuts % (Manual) 79 H Band Neuts % (Manual) 2 Lymphocytes % (Manual) 5 L Monocytes % (Manual) 8 Basophils % (Manual) 1 Metamyelocytes % (Man) 3 H Myelocytes % (Man) 2 H Abs Neuts (Manual) 9.8 H Differential Comment . Platelet Estimate Normal Platelet Morphology Normal Sodium 132 L Potassium 3.8 Chloride 101 Carbon Dioxide 20.2 L Anion Gap 11 BUN 16 Creatinine 1.37 H Estimated GFR 49 L Random Glucose 117 H Calcium 7.7 L Lipase 2730 H Microbiology 01/12/19 03:48 Blood - Peripheral Aerobic Blood Culture - Preliminary No growth in 4 days 01/12/19 03:48 Blood - Peripheral Anaerobic Blood Culture - Preliminary No growth in 4 days 01/12/19 03:40 Blood - Peripheral Aerobic Blood Culture - Preliminary No growth in 4 days 01/12/19 03:40 Blood - Peripheral Anaerobic Blood Culture - Preliminary No growth in 4 days - Imaging Impressions Abdomen X-Ray 01/16/19 09:00 CONCLUSION: Mildly distended small bowel loops, slightly improved. Assessment and Plan - Assessment (1) Acute hemorrhagic cystitis Code(s): N30.01 - Acute cystitis with hematuria Status: Acute (2) UTI (urinary tract infection) Code(s): N39.0 - Urinary tract infection, site not specified Status: Acute (3) Complicated urinary tract infection Code(s): N39.0 - Urinary tract infection, site not specified Status: Acute (4) Ileus Code(s): K56.7 - Ileus, unspecified Status: Acute Plan: Continue NG to suction; I have been made aware that medical team is planning to perform CT scan. Will track movement of contrast through the bowel. As is not enthusiastic about operative procedure, hopefully this will help sort out ileus versus partial bowel obstruction. - Plan Discussed Condition With: Patient Nursing staff Melissa - Attending Attestation I attest that I had a [id number] encounter with the patient on the same day, and personally performed and documented my assessment and findings in the medical record. The following services were provided during this hospital visit: Chart data review, vital sign assessments/reviewing monitor data Review of consultation notes if present Medication orders/review and/or management Ordering and/or reviewing lab tests Ordering and/or interpreting/reviewing x-rays and/or diagnostic studies Care of the patient and discussion of the patient with the care team Documentation time To help prompt me to consider important information that might be impacting today's encounter and assessment, Information from prior notes written by myself or my colleagues may have been "brought forward/copy and pasted" into today's note.
--- NOTE | 2019-01-16 19:47 | P.PNADD ---
Addendum to Inpatient Note Reason for Addendum: Additional Documentation Additional information: Off service note: Mr. Rutherford is a 83yo M with h/o metastatic prostate cancer initially hospitalized for gross hematuria/ hemorrhagic cystitis requiring 2 units of blood transfusion with appropriate response. He is s/p radical retropubic prostatectomy and was receiving treatment for his cancer recurrence at the [facility]. He was having issues with urinary retention since Sep 2018 and this was being managed with both an indwelling Galvez catheter along with intermittent catheterizations. On admission CT A/P showed: changes consistent with bony metastatic disease along with mild right hydro-ureteronephrosis likely secondary to progression from the prostate cancer. Urology was consulted and continual bladder irrigation and no surgical intervention was recommended. Patient has [facility] insurance thus is not able to f/u with inpatient urologist as an outpatient thus he would have to see his [facility] urologist for possible scope of bladder as an outpatient. His hematuria resolved and H/H has remained stable. Infectious disease was also consulted for management of pseudomonas UTI and pt was placed on Levaquin, renally dosed. However, the hospital course was then complicated partial distal SBO noted on KUB and CT abd/pelvis for which he was placed on medical management for with slow but appropriate response. General surgery was consulted to evaluate for need of surgical intervention and they also recommended medical management. Repeat KUB's have shown improvement. Due to rising lipase a repeat CT a/p was done to evaluate pancreas involvement. The repeat CT A/P showed: Persistent dilation of small bowel loops with a discrete transition in the region of the ileum concerning for at least a partial small bowel obstruction. The degree of small bowel distention is relatively stable. Postsurgical changes with findings of prior prostatectomy. Extensive sclerosis and cortical thickening predominantly in the right ilium and acetabulum. Some sclerosis in the left ilium, pubic ramus and lower lumbar spine. 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 Stable small bilateral pleural effusions with concomitant atelectatic changes. Mild abdominal ascites around the hepatic convexity is slightly increased. Old granulomatous disease. Once partial SBO is treated disposition plan is for patient to either go home with home health or to rehab and follow up with his urologist and oncologist at the [facility] for a bladder scope and cancer treatment.
[2019-01-16] MEDS: Mirtazapine 15 MG Tablet PO SCH (22:35)
--- NOTE | 2019-01-17 01:23 | CT ---
EXAM DATE: 01/17/2019 1:01 AM EST AGE/SEX: 83 years / Male INDICATIONS: Right upper quadrant pain. CLINICAL DATA: This is the patient's subsequent encounter. Patient reports that signs and symptoms h ave been present for 4 - 6 days and indicates a pain score of 6/10. MEDICAL/SURGICAL HISTORY: Cerebrovascular disease. Hypertension. Carcinoma, prostatic. Bone mets Prostatectomy. Cholecystectomy. Appendectomy. ORAL CONTRAST: Prescribed oral contrast ingested. RADIATION DOSE: 11.95 CTDI (mGy) COMPARISON: [facility] [place] A[place]OM[place] & PELVIS W CONTRAST, 01/12/2019. . TECHNIQUE: Multiple contiguous axial images were obtained through the abdomen and pelvis following b olus infusion of 95 ml Omnipaque 350 (iohexol) nonionic water-soluble contrast as a single exam dos e. Prescribed oral contrast ingested. Using automated exposure control and adjustment of the mA and/ or kV according to patient size, radiation dose was kept as low as reasonably achievable to obtain op timal diagnostic quality images. DICOM format image data is available electronically for review and comparison. FINDINGS: Lower Lungs: Persistent bibasilar small pleural effusions with concomitant atelectatic changes, right slightly worse than left. Old granulomatous disease with a calcified left hilar lymph node. Liver: The liver has a homogeneous density without space-occupying lesion. There is no dilation of th e biliary tree. Patient is status post cholecystectomy.. Spleen: Punctate granulomatous type calcifications.. Pancreas: Unremarkable without mass or calcification. Kidneys: Normal in size and shape. No evidence of mass or hydronephrosis. Adrenal Glands: Unremarkable. Aorta: The aorta and proximal iliac vessels are grossly unremarkable without aneurysmal dilation. Bowel/Mesentery: Small amount of ascites around the hepatic convexity is slightly increased from the prior. As seen previously, there is diffuse distention of small bowel loops with a discrete transiti on in the region of the distal ileum. The terminal ileum is completely decompressed. Abdominal Wall: Intact. Retroperitoneum: No evidence of adenopathy in the retrocrural, para-aortic, or deep pelvic regions. Bladder: Galvez catheter in place.. Reproductive Organs: Patient appears to be status post prostatectomy with a pelvic sidewall micaela di ssection. There is a penile prostheses however, the reservoir appears to be chronically decompressed. Inguinal: The inguinal region is unremarkable without evidence of adenopathy. Bony Structures: Extensive sclerosis and cortical thickening in the right ilium with scattered areas of sclerosis in the lower lumbar spine and left ilium. Post Contrast: No abnormal areas of enhancement seen. CONCLUSION: 1. Persistent dilation of small bowel loops with a discrete transition in the region of the ileum co ncerning for at least a partial small bowel obstruction. The degree of small bowel distention is rela tively stable. 2. Postsurgical changes with findings of prior prostatectomy. Penile prostheses but the reservoir ap pears to be decompressed. 3. Extensive sclerosis and cortical thickening predominantly in the right ilium and acetabulum. Some sclerosis in the left ilium, pubic ramus and lower lumbar spine. 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 4. Stable small bilateral pleural effusions with concomitant atelectatic changes. Mild abdominal asc ites around the hepatic convexity is slightly increased. 5. Old granulomatous disease. Electronically signed by: Haim Block MD Board Certified Radiologist 01/17/2019 1:21 AM EST
[2019-01-17] MEDS: Potassium Chloride Inj 10 MEQ in Dextrose 5% in Water Inj 1,000 ML IV.CONT SCH ×6 (03:55→21:09)
[2019-01-17 04:14] LABS: Baso % (Auto) 0.3 % (0.0-2.0); Eos # (Auto) 0.2 th/mm3 (0.0-0.4); Eos % (Auto) 2.1 % (0.0-4.0); Hematocrit 33.6 % (39.0-51.0); Hemoglobin 11.5 gm/dL (13.0-17.0); Lymph # (Auto) 0.8 th/mm3 (1.0-4.8); Lymph % (Auto) 7.4 % (9.0-44.0); Mean Corpuscular HGB Conc 34.3 % (32.0-36.0); Mean Corpuscular Hemoglobin 30.4 pg (27.0-34.0); Mean Corpuscular Volume 88.5 fL (80.0-100.0); Mean Platelet Volume 7.9 fL (7.0-11.0); Mono # (Auto) 1.1 th/mm3 (0.0-0.9); Mono % (Auto) 10.4 % (0.0-8.0); Neut # (Auto) 8.2 th/mm3 (1.8-7.7); Neut % (Auto) 79.8 % (16.0-70.0); Platelet Count 332 th/mm3 (150-450); Red Cell Distribution Width 15.5 % (11.6-17.2); White Blood Count 10.3 th/mm3 (4.0-11.0)
[2019-01-17 04:46] LABS: Albumin 1.7 g/dL (3.4-5.0); Anion Gap 11 meq/L (5-15); Aspartate Aminotransferase 21 U/L (15-37); Blood Urea Nitrogen 13 mg/dL (7-18); Calcium 7.6 mg/dL (8.5-10.1); Carbon Dioxide 21.3 meq/L (21.0-32.0); Chloride 99 meq/L (98-107); Glucose,Random 110 mg/dL (74-106); Potassium 3.8 meq/L (3.5-5.1); Sodium 131 meq/L (136-145)
[2019-01-17 04:47] LABS: Alanine Aminotransferase 14 U/L (12-78)
[2019-01-17 04:49] LABS: Alkaline Phosphatase 127 U/L (45-117); Lipase 3149 U/L (73-393); Total Protein 5.2 g/dL (6.4-8.2)
[2019-01-17 06:13] LABS: Metamyelocytes 4 % (0-1); Monocytes 6 % (0-8); Myelocytes 2 % (0-0)
[2019-01-17 06:14] LABS: Lymphocytes 3 % (9-44); Platelet Estimate Normal (Normal); Platelet Morphology Normal (Normal); Toxic Vacuolation Present
--- NOTE | 2019-01-17 07:24 | P.PNFP ---
Subjective Interval history: No acute events overnight. Some small amounts of flatus overnight states he has had a smear of a BM.. He does have cough, and has abdominal pain during his cough that he states is secondary to his NG tube. He denies headache, nausea, vomiting, chest pain, constant abdominal, fever, chills. <Kayode Zhao Garg - 01/17/19 11:46> Results - Labs Result diagrams: 01/17/19 03:07 01/17/19 03:07 <JiIngrid - 01/17/19 20:56> Abnormal lab results 01/17/19 01/17/19 01/17/19 Range/Units 03:07 03:07 03:07 RBC 3.80 L (4.50-5.90) mil/mm3 Hgb 11.5 L (13.0-17.0) gm/dL Hct 33.6 L (39.0-51.0) % Neut % (Auto) 79.8 H (16.0-70.0) % Lymph % (Auto) 7.4 L (9.0-44.0) % [place] % (Auto) 10.4 H (0.0-8.0) % Neut # (Auto) 8.2 H (1.8-7.7) th/mm3 Lymph # (Auto) 0.8 L (1.0-4.8) th/mm3 [place] # (Auto) 1.1 H (0.0-0.9) th/mm3 Seg Neuts % (Manual) 83 H (16-70) % Lymphocytes % (Manual) 3 L (9-44) % Metamyelocytes % (Man) 4 H (0-1) % Myelocytes % (Man) 2 H (0-0) % Abs Neuts (Manual) 9.4 H (1.8-7.7) th/mm3 Toxic Vacuolation Present H (None) Sodium 131 L (136-145) meq/L Random Glucose 110 H (74-106) mg/dL Calcium 7.6 L (8.5-10.1) mg/dL Alkaline Phosphatase 127 H (45-117) U/L Total Protein 5.2 L (6.4-8.2) g/dL Albumin 1.7 L (3.4-5.0) g/dL Amylase 224 H (25-115) U/L Lipase 3149 H (73-393) U/L Short CBC 01/17/19 Range/Units 03:07 WBC 10.3 (4.0-11.0) th/mm3 Hgb 11.5 L (13.0-17.0) gm/dL Hct 33.6 L (39.0-51.0) % Plt Count 332 (150-450) th/mm3 BMP 01/17/19 03:07 Sodium 131 L Potassium 3.8 Chloride 99 Carbon Dioxide 21.3 BUN 13 Creatinine 1.21 Calcium 7.6 L Liver Function 01/17/19 Range/Units 03:07 Total Bilirubin 0.5 (0.2-1.0) mg/dL AST 21 (15-37) U/L ALT 14 (12-78) U/L Alkaline Phosphatase 127 H (45-117) U/L Albumin 1.7 L (3.4-5.0) g/dL <Ingrid Workman - 01/17/19 20:56> Abnormal lab results 01/16/19 01/16/19 01/17/19 Range/Units 04:57 04:57 03:07 RBC 3.80 L (4.50-5.90) mil/mm3 Hgb 11.5 L (13.0-17.0) gm/dL Hct 33.6 L (39.0-51.0) % Neut % (Auto) 79.8 H (16.0-70.0) % Lymph % (Auto) 7.4 L (9.0-44.0) % [place] % (Auto) 10.4 H (0.0-8.0) % Neut # (Auto) 8.2 H (1.8-7.7) th/mm3 Lymph # (Auto) 0.8 L (1.0-4.8) th/mm3 [place] # (Auto) 1.1 H (0.0-0.9) th/mm3 Seg Neuts % (Manual) 79 H 83 H (16-70) % Lymphocytes % (Manual) 5 L 3 L (9-44) % Metamyelocytes % (Man) 3 H 4 H (0-1) % Myelocytes % (Man) 2 H 2 H (0-0) % Abs Neuts (Manual) 9.8 H 9.4 H (1.8-7.7) th/mm3 Toxic Vacuolation Present H (None) Sodium (136-145) meq/L Random Glucose (74-106) mg/dL Calcium (8.5-10.1) mg/dL Alkaline Phosphatase (45-117) U/L Total Protein (6.4-8.2) g/dL Albumin (3.4-5.0) g/dL Lipase 2730 H (73-393) U/L 01/17/19 Range/Units 03:07 RBC (4.50-5.90) mil/mm3 Hgb (13.0-17.0) gm/dL Hct (39.0-51.0) % Neut % (Auto) (16.0-70.0) % Lymph % (Auto) (9.0-44.0) % [place] % (Auto) (0.0-8.0) % Neut # (Auto) (1.8-7.7) th/mm3 Lymph # (Auto) (1.0-4.8) th/mm3 [place] # (Auto) (0.0-0.9) th/mm3 Seg Neuts % (Manual) (16-70) % Lymphocytes % (Manual) (9-44) % Metamyelocytes % (Man) (0-1) % Myelocytes % (Man) (0-0) % Abs Neuts (Manual) (1.8-7.7) th/mm3 Toxic Vacuolation (None) Sodium 131 L (136-145) meq/L Random Glucose 110 H (74-106) mg/dL Calcium 7.6 L (8.5-10.1) mg/dL Alkaline Phosphatase 127 H (45-117) U/L Total Protein 5.2 L (6.4-8.2) g/dL Albumin 1.7 L (3.4-5.0) g/dL Lipase 3149 H (73-393) U/L Short CBC 01/17/19 Range/Units 03:07 WBC 10.3 (4.0-11.0) th/mm3 Hgb 11.5 L (13.0-17.0) gm/dL Hct 33.6 L (39.0-51.0) % Plt Count 332 (150-450) th/mm3 [facility] 01/17/19 03:07 Sodium 131 L Potassium 3.8 Chloride 99 Carbon Dioxide 21.3 BUN 13 Creatinine 1.21 Calcium 7.6 L Liver Function 01/17/19 Range/Units 03:07 Total Bilirubin 0.5 (0.2-1.0) mg/dL AST 21 (15-37) U/L ALT 14 (12-78) U/L Alkaline Phosphatase 127 H (45-117) U/L Albumin 1.7 L (3.4-5.0) g/dL <Zhao Brian - 01/17/19 07:24> - Imaging Impressions Abdomen/Pelvis CT 01/17/19 00:00 CONCLUSION: 1. Persistent dilation of small bowel loops with a discrete transition in the region of the ileum concerning for at least a partial small bowel obstruction. The degree of small bowel distention is relatively stable. 2. Postsurgical changes with findings of prior prostatectomy. Penile prostheses but the reservoir appears to be decompressed. 3. Extensive sclerosis and cortical thickening predominantly in the right ilium and acetabulum. Some sclerosis in the left ilium, pubic ramus and lower lumbar spine. 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 4. Stable small bilateral pleural effusions with concomitant atelectatic changes. Mild abdominal ascites around the hepatic convexity is slightly increased. 5. Old granulomatous disease. Abdomen X-Ray 01/17/19 07:00 CONCLUSION: Moderate severity small bowel distention without significant change. <Ingrid Workman - 01/17/19 20:56> Impressions Abdomen X-Ray 01/16/19 09:00 CONCLUSION: Mildly distended small bowel loops, slightly improved. Abdomen/Pelvis CT 01/17/19 00:00 CONCLUSION: 1. Persistent dilation of small bowel loops with a discrete transition in the region of the ileum concerning for at least a partial small bowel obstruction. The degree of small bowel distention is relatively stable. 2. Postsurgical changes with findings of prior prostatectomy. Penile prostheses but the reservoir appears to be decompressed. 3. Extensive sclerosis and cortical thickening predominantly in the right ilium and acetabulum. Some sclerosis in the left ilium, pubic ramus and lower lumbar spine. 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 4. Stable small bilateral pleural effusions with concomitant atelectatic changes. Mild abdominal ascites around the hepatic convexity is slightly increased. 5. Old granulomatous disease. <Kayode Zhao Garg - 01/17/19 07:24> Physical Exam Vital signs: Vital Signs 01/16/19 23:41 01/17/19 03:47 01/17/19 08:00 Temperature 98.3 F 98.2 F 98.5 F Pulse Rate 107 H 108 H 108 H Respiratory Rate 18 18 20 Blood Pressure 112/61 111/57 L 107/57 L Pulse Oximetry 95 94 L 96 01/17/19 12:00 01/17/19 16:00 Temperature 98.2 F 97.4 F L Pulse Rate 99 H 99 H Respiratory Rate 20 20 Blood Pressure 94/50 L 116/59 L Pulse Oximetry 94 L 95 Intake & Output 01/17/19 01/17/19 01/18/19 06:59 18:59 06:59 Intake Total 1155 / 1155 1005 / 1005 Output Total 1999 / 1999 800 / 800 Balance -845 / -845 205 / 205 Weight 72.4 kg Intake: IV 1155 / 1155 1005 / 1005 KCl Inj 10 MEQ In D5W Inj 1,000 1005 / 1005 1005 / 1005 ML @ 125 mls/hr IV.CONT .Q8H3M [facility] Rx#:[id number] Levaquin 750 mg Premix Inj 150 150 / 150 ML @ 100 mls/hr IV.SIG Q48H [facility] Rx#:[id number] Oral 0 / 0 Output: Urine 1300 / 1300 500 / 500 Gastric Drainage 700 / 700 300 / 300 Right Nare Nasogastric Tube 700 / 700 300 / 300 Other: Bladder Irrigation Fluid - Amount Instilled 3-way Urethral 3,000 Bladder Irrigation Fluid - Amount Drained 3-way Urethral 3,250 Date of Last Bowel Movement 01/16/19 01/17/19 # Bowel Movements 1 <Ingrid Workman - 01/17/19 20:56> Vital Signs 01/16/19 08:00 01/16/19 12:00 01/16/19 16:00 Temperature 98.4 F 98.1 F 97.9 F Pulse Rate 100 H 95 H 97 H Respiratory Rate 22 20 20 Blood Pressure 99/57 L 110/58 L 102/59 L Pulse Oximetry 93 L 94 L 96 01/16/19 20:00 01/16/19 20:24 01/16/19 23:41 Temperature 97.8 F 98.3 F Pulse Rate 75 107 H Respiratory Rate 18 18 Blood Pressure 103/61 112/61 Pulse Oximetry 96 96 95 01/17/19 03:47 Temperature 98.2 F Pulse Rate 108 H Respiratory Rate 18 Blood Pressure 111/57 L Pulse Oximetry 94 L Intake & Output 01/16/19 01/17/19 01/17/19 18:59 06:59 18:59 Intake Total 1005 / 1005 1155 / 1155 Output Total 150 / 150 1999 / 1999 Balance 855 / 855 -845 / -845 Weight 72.4 kg Intake: IV 1005 / 1005 1155 / 1155 KCl Inj 10 MEQ In D5W Inj 1,000 1005 / 1005 1005 / 1005 ML @ 125 mls/hr IV.CONT .Q8H3M [facility] Rx#:[id number] Levaquin 750 mg Premix Inj 150 150 / 150 ML @ 100 mls/hr IV.SIG Q48H [facility] Rx#:[id number] Oral 0 / 0 Output: Urine 1300 / 1300 Gastric Drainage 150 / 150 700 / 700 Right Nare Nasogastric Tube 150 / 150 700 / 700 Other: Date of Last Bowel Movement 01/16/19 01/16/19 # Incontinent Bowel Movements 1 <Zhao Brian - 01/17/19 07:24> Narrative: General: Elderly male, no acute distress. Eyes: EOMI, anicteric scleral, no conjunctival injection ENT: Atraumatic, MMM, NG tube in place Neck: Trachea midline, no masses or lymphadenopathy Respiratory: Normal respiratory effort, wet crackles at both lung bases with good aeration Cardiovascular: Tachycardic, regular rhythm without murmur, 1+ pedal pulses, no peripheral edema Abdomen: Bowel sounds hypoactive. No abdominal tenderness/guarding/rebound. Skin: no rashes or lesions noted Psychiatric: Alert and oriented. Normal affect. <Zhao Brian - 01/17/19 11:46> - Urinary Catheter Management 3-way Urethral Cath placed during this visit: no <Ingrid Workman - 01/17/19 20:56> no <Zhao Brian 01/17/19 11:51> Reason for continuing: Gross Hematuria <SharonglZhao Davis 01/17/19 07: 24> Indwelling Urethral Catheter Cath placed during this visit: no <Ingrid Workman 01/17/19 20:56> yes, but has since been removed by the nurse <Zhao Brian - 01/17/19 11:51> Reason for continuing: Gross Hematuria <Sharongliano Zhao Garg 01/17/19 07: 24> Insertion date: 01/09/19 <Stagliano Zhao Garg - 01/17/19 07:24> Insertion time: 17:35 <Stagliano Zhao Garg 01/17/19 07:24> Removal date: 01/09/19 <Sharongliano Zhao Garg 01/17/19 07:24> Removal time: 17:30 <Sharongliano Zhao Garg 01/17/19 07:24> Assessment and Plan - Assessment (1) Partial bowel obstruction Code(s): K56.600 - Partial intestinal obstruction, unspecified as to cause Status: Acute (2) Pneumonia Code(s): J18.9 - Pneumonia, unspecified organism Status: Acute (3) Complicated urinary tract infection Code(s): N39.0 - Urinary tract infection, site not specified Status: Acute (4) Gross hematuria Code(s): R31.0 - Gross hematuria Status: Resolved (5) Hypertension Code(s): I10 - Essential (primary) hypertension Status: Chronic (6) Prostate cancer Code(s): C61 - Malignant neoplasm of prostate Status: Chronic <Ingrid Workman - 01/17/19 20:56> (1) Partial bowel obstruction Code(s): K56.600 - Partial intestinal obstruction, unspecified as to cause Status: Acute Plan: (2) Pneumonia Code(s): J18.9 - Pneumonia, unspecified organism Status: Acute Plan: (3) Complicated urinary tract infection Code(s): N39.0 - Urinary tract infection, site not specified Status: Acute Plan: (4) Gross hematuria Code(s): R31.0 - Gross hematuria Status: Resolved Plan: (5) Hypertension Code(s): I10 - Essential (primary) hypertension Status: Chronic Plan: (6) Prostate cancer Code(s): C61 - Malignant neoplasm of prostate Status: Chronic Plan: <Kayode Zhao Garg Elizabeth - 01/17/19 11:49> - Assessment and Plan He is an 83-year-old male with a history of prostate cancer admitted with hematuria found to have a partial small bowel obstruction. Currently medically managing, however Dr. Crowell is following. Partial small bowel obstruction: Him multiple days with no bowel movements and worsening distention and nausea/vomiting on 01/11. KUB at that time showed an abnormal bowel gas pattern. He was put n.p.o., NG tube to suction, IV fluids. KUB on 01/14 showed significant decrease in the prominence of bowel loops. General surgery consulted and recommends continued medical management at this time. Continued recommendations are appreciated. Does have some bowel sounds and flatus, but has yet to have significant change in his SBO NG tube continues to drain bilious material New lipase elevation, possibly secondary to SBO. Unsure if it would be this high simply because of SBO. Pancreas looks okay on CT. Gastroenterology consulted for advice on this. Sepsis: Resolved. Blood cultures negative to date, lactic acid normalized, no current leukocytosis. Afebrile. Infectious disease following On Levaquin (Zyvox discontinued) Complicated UTI with gross hematuria: Hematuria has resolved (status post 2 units PRBCs). Culture positive for Pseudomonas. Pyridium for pain control Flomax, hold oxybutynin H&H stable Blood cultures negative to date Antibiotics as above Pneumonia: Chest x-ray showing bilateral infiltrates on 01/11 Respiratory status stable Antibiotics as above Incentive spirometry Hypertension: Continue home medication metoprolol Hyperlipidemia: Continue home medication pravastatin Prostate cancer with bone metastases We will follow-up with urologist at the [facility] for management as outpatient Fluids: D5 +10 mEq KCl at 125 cc/h Electrolytes: monitor and replete as needed Nutrition: NPO due to SBO GI prophylaxis: Daily IV Protonix (on p.o. Protonix at home) VTE prophylaxis: b/l SCDs (pharmacologic prophylaxis contraindicated due to hematuria on admission) Disposition: Significant deconditioning, daily PT, they recommend PT at rehab Seen and examined with Dr. Workman and Dr. Yeboah. <Kayode GargSachinZhao J - 01/17/19 11:51> - Attending Attestation Patient seen, examined, and discussed this morning with resident team. I agree with assessment and management as documented and discussed with me. Pt with some flatus and smear of BM since yesterday. He denies significant nausea or abd pain. Appreciate gen surg. Lipase increasing; consult GI. Pancreas WNL on CT abd. Suspect secondary to SBO , but lipase is quite high. <Ingrid Workman - 01/17/19 20:56>
[2019-01-17] MEDS: Lactobacillus Acidophilus/L. Spores Tablet PO SCH ×2 (09:21→21:24)
[2019-01-17] MEDS: Senna/Docusate Sodium 8.6/50 MG Tablet PO SCH ×2 (09:21→21:24)
[2019-01-17] MEDS: Metoprolol Tartrate 25 MG Tablet PO SCH ×2 (09:21→21:33)
[2019-01-17] MEDS: XTANDI 160 MG PO SCH (09:29)
--- NOTE | 2019-01-17 12:05 | P.PNGS ---
Subjective Interval history: DAILY PROGRESS NOTE FOR SURGICAL ATTENDING, DR. DEYANIRA LIRIANO Resting in bed Unsure of any flatus Physical Exam Vital signs: Vital Signs 01/16/19 16:00 01/16/19 20:00 01/16/19 20:24 Temperature 97.9 F 97.8 F Pulse Rate 97 H 75 Respiratory Rate 20 18 Blood Pressure 102/59 L 103/61 Pulse Oximetry 96 96 96 01/16/19 23:41 01/17/19 03:47 01/17/19 08:00 Temperature 98.3 F 98.2 F 98.5 F Pulse Rate 107 H 108 H 108 H Respiratory Rate 18 18 20 Blood Pressure 112/61 111/57 L 107/57 L Pulse Oximetry 95 94 L 96 Intake & Output 01/16/19 01/17/19 01/17/19 18:59 06:59 18:59 Intake Total 1005 / 1005 1155 / 1155 Output Total 150 / 150 1999 150 / 150 Balance 855 / 855 -845 / -845 -150 / -150 Weight 72.4 kg Intake: IV 1005 / 1005 1155 / 1155 KCl Inj 10 MEQ In D5W Inj 1,000 1005 / 1005 1005 / 1005 ML @ 125 mls/hr IV.CONT .Q8H3M [facility] Rx#:[id number] Levaquin 750 mg Premix Inj 150 150 / 150 ML @ 100 mls/hr IV.SIG Q48H [facility] Rx#:[id number] Oral 0 / 0 Output: Urine 1300 / 1300 150 / 150 Gastric Drainage 150 / 150 700 / 700 Right Nare Nasogastric Tube 150 / 150 700 / 700 Other: Date of Last Bowel Movement 01/16/19 01/16/19 # Incontinent Bowel Movements 1 Narrative: Alert and awake Abd: soft; mildly distended; minimally tender NGT to LIWS - Urinary Catheter Management Indwelling Urethral Catheter Cath placed during this visit: yes, but has since been removed by the nurse Reason for continuing: Gross Hematuria Insertion date: 01/09/19 Insertion time: 17:35 Removal date: 01/09/19 Removal time: 17:30 3-way Urethral Cath placed during this visit: no Reason for continuing: Gross Hematuria Results - Labs 01/17/19 03:07 01/17/19 03:07 Laboratory Results - last 24 hr 01/17/19 01/17/19 01/17/19 03:07 03:07 03:07 WBC 10.3 RBC 3.80 L Hgb 11.5 L Hct 33.6 L MCV 88.5 MCH 30.4 MCHC 34.3 RDW 15.5 Plt Count 332 MPV 7.9 Prelim Diff (Auto) Slide review pending Neut % (Auto) 79.8 H Lymph % (Auto) 7.4 L [place] % (Auto) 10.4 H Eos % (Auto) 2.1 Baso % (Auto) 0.3 Neut # (Auto) 8.2 H Lymph # (Auto) 0.8 L [place] # (Auto) 1.1 H Eos # (Auto) 0.2 Baso # (Auto) 0.0 WBC Differential Manual diff final Seg Neuts % (Manual) 83 H Band Neuts % (Manual) 2 Lymphocytes % (Manual) 3 L Monocytes % (Manual) 6 Metamyelocytes % (Man) 4 H Myelocytes % (Man) 2 H Abs Neuts (Manual) 9.4 H Differential Comment . Toxic Vacuolation Present H Platelet Estimate Normal Platelet Morphology Normal Sodium 131 L Potassium 3.8 Chloride 99 Carbon Dioxide 21.3 Anion Gap 11 BUN 13 Creatinine 1.21 Random Glucose 110 H Calcium 7.6 L Total Bilirubin 0.5 AST 21 ALT 14 Alkaline Phosphatase 127 H Total Protein 5.2 L Albumin 1.7 L Amylase 224 H Lipase 3149 H - Imaging Imaging: ITS Impressions Liver Ultrasound 01/07/19 00:00 CONCLUSION: 1. Minimal increase in echogenicity of the liver without mass or hydronephrosis. 2. There is no ductal dilatation Chest X-Ray 01/11/19 00:00 CONCLUSION: Mild bilateral infiltrates Abdomen X-Ray 01/16/19 09:00 CONCLUSION: Mildly distended small bowel loops, slightly improved. Abdomen/Pelvis CT 01/17/19 00:00 CONCLUSION: 1. Persistent dilation of small bowel loops with a discrete transition in the region of the ileum concerning for at least a partial small bowel obstruction. The degree of small bowel distention is relatively stable. 2. Postsurgical changes with findings of prior prostatectomy. Penile prostheses but the reservoir appears to be decompressed. 3. Extensive sclerosis and cortical thickening predominantly in the right ilium and acetabulum. Some sclerosis in the left ilium, pubic ramus and lower lumbar spine. 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 4. Stable small bilateral pleural effusions with concomitant atelectatic changes. Mild abdominal ascites around the hepatic convexity is slightly increased. 5. Old granulomatous disease. CT scan - abdomen: report reviewed, image reviewed CT scan - pelvis: report reviewed, image reviewed Assessment and Plan - Assessment (1) Acute hemorrhagic cystitis Code(s): N30.01 - Acute cystitis with hematuria Status: Acute (2) UTI (urinary tract infection) Code(s): N39.0 - Urinary tract infection, site not specified Status: Acute (3) Complicated urinary tract infection Code(s): N39.0 - Urinary tract infection, site not specified Status: Acute (4) Ileus Code(s): K56.7 - Ileus, unspecified Status: Acute (5) Elevated amylase and lipase Code(s): R74.8 - Abnormal levels of other serum enzymes Status: Acute - Plan 83 year old male with recurrent prostate cancer; UTI; pneumonia; radiological findings of SBO -CT reviewed -NGT in place; output tampering down -Will start TPN tonight; Vascular access for PICC placement -Recommend continuing NGT to LIWS -Monitor I/O closely as GI loss is high -Discussed with patient SBO may be secondary to adhesions vs infection (UTI) -ID following -Will continue non operative management - Attending Attestation NOTE FOR SURGICAL ATTENDING, DR. DEYANIRA LIRIANO Patient seen and examined Abdomen appears softer NG tube output noted Some flatus small bowel movement I agree with above assessment and plan. The exam, history, and the medical decision-making described in the above note were completed with the assistance of the mid-level provider. I reviewed and agree with the findings presented. I attest that I had a [id number] encounter with the patient on the same day, and personally performed and documented my assessment and findings in the medical record. The following services were provided during this hospital visit: Chart data review, vital sign assessments/reviewing monitor data Review of consultations notes if present. Medication orders/review and/or management Ordering and/or reviewing lab tests Ordering and/or interpreting/reviewing x-rays and/or diagnostic studies Care of the patient and discussion of the patient with the care team Documentation time To help prompt me to consider important information that might be impacting today's encounter and assessment, Information from prior notes written by myself or my colleagues may have been "brought forward/copy and pasted" into today's note.
[2019-01-17] MEDS: Pantoprazole Inj 40 MG Vial IV.PUSH SCH (12:22)
[2019-01-17] MEDS ORDERED: Dextrose 10% in Water Inj 1,000 ML IV.CONT PRN (13:36)
[2019-01-17] MEDS ORDERED: Dextrose 5% in Water Inj 1,000 ML IV.CONT PRN (13:36)
--- NOTE | 2019-01-17 14:46 | XR ---
EXAM DATE: 01/17/2019 2:11 PM EST AGE/SEX: 83 years / Male INDICATIONS: Abdominal discomfort. Evaluate obstruction. CLINICAL DATA: This is the patient's subsequent encounter. Patient reports that signs and symptoms h ave been present for 1 week and indicates a pain score of Nonresponsive. MEDICAL/SURGICAL HISTORY: Carcinoma, prostatic. Carcinoma, bone. Hypertension. Cholecystectom y. Appendectomy. Prostatectomy. COMPARISON: [facility], CT ABDOMEN & PELVIS W CONTRAST, 01/17/2019. . FINDINGS: There is persistent moderate severity small bowel distention to the level of the distal ileum. This is not significantly changed. Colon remains decompressed. No gastric distention demonstrated; a nasog astric tube with tip and sidehole within the stomach again noted. No free air. CONCLUSION: Moderate severity small bowel distention without significant change. Electronically signed by: Daron Gibson MD Board Certified Radiologist 01/17/2019 2:45 PM EST
--- NOTE | 2019-01-17 15:31 | P.CONGI ---
History of Present Illness Consult date: 01/17/19 Consult reason: Elevated lipase Chief complaint: UTI, hemorragic cystitis History of Present Illness: Patient is a pleasant 83-year-old male with past medical history significant for prostate cancer 25 years status post radical prostatectomy and orchiectomy. Patient also has history of congestive heart failure, hypertension, penile implant failure, prostate cancer with metastasis to bone and thrombocytopenia. Surgical history includes cholecystectomy, appendectomy, radical prostatectomy and orchiectomy. Patient presented to [facility] emergency room with report of lower abdominal pain and 3-week onset of hematuria. Currently being treated for urinary tract infection. Patient also endorses in a recurrence of his prostate cancer 3 years ago and states currently undergoing oral chemotherapy. 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 Patient describes abdominal pain as dull and aching, states pain is intermittent without associated nausea or vomiting. NG tube in place to low intermittent wall suction with 250 cc total output since 7 AM. Gastric output dark green in color without any noted bleeding. Patient denies past history of EGD but does endorse colonoscopy "many years ago". He denies constipation but does endorse a 2-week history of loose stools with nausea. Denies hematochezia or melena. Our service has been consulted to evaluate patient for elevated lipase levels. Review of Systems All other systems reviewed negative except as stated in HPI PMFSH - History History Provided By: Patient - Medical History Medical History: Medical History (Last Reviewed 01/14/19 @ 15:26 by Marcus Flynn) Anemia CHF (congestive heart failure) Hypertension Muscle weakness 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 Thrombocytopenia - Surgical History Surgical History: Surgical History (Last Reviewed 01/14/19 @ 15:26 by Marcus Flynn) H/O removal of testicle History of cholecystectomy Hx of appendectomy Hx of radical prostatectomy - Tobacco History Second Hand Smoke Exposure: No Tobacco Use In Past 30 Days: No Smoking Status: Never smoker - Alcohol History How Often Do You Have a Drink Containing Alcohol: 2 to 4 times a month - Substance Use History Substance History: No History of Abuse - Travel History Recent Travel in the [place] Within the Last 8 Weeks: No Recent Travel Out of the Country Within the Last 8 Weeks: No - Immunization History Tetanus Immunization: <5 Years Hx Influenza Vaccine This Season: Yes Medications and Allergies Active Medications: Active Medications Al Hydroxide/Mg Hydroxide (Milk Of Magnesia Liq) 30 ml PO Q12H PRN PRN Reason: Mild Constipation Last Admin: 01/11/19 04:52 Dose: 30 ml Bisacodyl (Dulcolax Supp) 10 mg RECTAL DAILY PRN PRN Reason: SEVERE CONSITIPATION Last Admin: 01/11/19 04:53 Dose: 10 mg Cyanocobalamin (Vitamin B12) 1,[address] [facility] Last Admin: 01/17/19 09:21 Dose: 1,000 mcg Levofloxacin/Dextrose (Levaquin 750 Mg Premix Inj) 150 mls @ 100 mls/hr IV.SIG Q48H [facility] Last Infusion: 01/16/19 22:37 Dose: Infused Potassium Chloride 10 meq/ (Dextrose) 1,005 mls @ 125 mls/hr IV.CONT .Q8H3M [facility] Last Admin: 01/17/19 12:22 Dose: 125 mls/hr Fat Emulsion Intravenous (Intralipid 20% Inj) 250 mls @ 31.25 mls/hr IV.SIG DAILY@2000 [facility] Dextrose (D10w Inj) 1,000 mls @ 0 mls/hr IV.CONT .Q0M PRN PRN Reason: if TPN not available Dextrose (D5w Inj) 1,000 mls @ 30 mls/hr IV.CONT .Q24H PRN PRN Reason: Central line placement Amino Acids/Electrolytes (Clinimix E 5%/D20w Inj) 2,000 mls @ 83 mls/hr IV.SIG DAILY@2000 [facility]; Protocol Lactobacillus Acidophilus (Lactinex) [address] [facility] Last Admin: 01/17/19 09:21 Dose: 2 tab Lactulose (Lactulose Liq) 30 ml PO DAILY PRN PRN Reason: SEVERE CONSITIPATION Last Admin: 01/11/19 04:52 Dose: 30 ml Metoclopramide HCl (Reglan Inj) 5 mg IM Q8H PRN; Protocol PRN Reason: nausea/vomiting Last Admin: 01/14/19 16:57 Dose: 5 mg Metoprolol Tartrate (Lopressor) 12.[address] [facility] Last Admin: 01/17/19 09:21 Dose: 12.5 mg Mirtazapine (Remeron) [address] [facility] Last Admin: 01/16/19 22:35 Dose: Not Given Morphine Sulfate (Morphine Inj) 3 mg IV.PUSH Q3H PRN PRN Reason: BREAKTHROUGH PAIN Last Admin: 01/10/19 08:33 Dose: 3 mg Naloxone HCl (Narcan Inj) 0.4 mg IV.PUSH UNSCH PRN PRN Reason: SEE LABEL COMMENTS Ondansetron HCl (Zofran Inj) 4 mg IV.PUSH Q6H PRN PRN Reason: NAUSEA OR VOMITING Last Admin: 01/17/19 09:21 Dose: 4 mg Oxycodone/Acetaminophen (Percocet 10/325 Mg) 1 tab PO Q6H PRN PRN Reason: PAIN SCALE 6 TO 10 Pantoprazole Sodium (Protonix Inj) [address] [facility] Last Admin: 01/17/19 12:22 Dose: 40 mg Pantoprazole Sodium (Protonix) [address] [facility] Last Admin: 01/17/19 09:21 Dose: 40 mg Pt Own Xtandi 160 Mg [address] [facility] Last Admin: 01/17/19 09:29 Dose: Not Given Phenazopyridine HCl (Pyridium) 100 mg PO Q8H PRN PRN Reason: dysuria Last Admin: 01/09/19 22:49 Dose: 100 mg Pravastatin Sodium (Pravachol) [address] [facility] Last Admin: 01/16/19 22:35 Dose: Not Given Senna/Docusate Sodium (Nannette-Colace) [address] [facility] Last Admin: 01/17/19 09:21 Dose: 1 tab Sennosides (Senokot) 17.2 mg PO Q12H PRN PRN Reason: Moderate Constipation Last Admin: 01/11/19 04:52 Dose: 17.2 mg Sodium Chloride (Ns Flush) [address] [facility] Last Admin: 01/17/19 09:22 Dose: 2 ml Sodium Chloride (Ns Flush) 2 ml IV.FLUSH PRN PRN PRN Reason: FLUSH AFTER USING IV ACCESS Last Admin: 01/10/19 22:22 Dose: 2 ml Tamsulosin HCl (Flomax) 0.[address] [facility] Last Admin: 01/16/19 17:36 Dose: 0.4 mg Allergies Allergy/AdvReac Type Severity Reaction Status Date / Time Penicillins Allergy Itching Verified 01/06/19 02:12 Home Medications Medication Instructions Recorded Confirmed Type Lactobacillus rhamnosus GG 2 BID 01/06/19 History [Culturelle] acetaminophen 650 PO Q4HR PRN 01/06/19 History aspirin [Aspirin Low Dose] 81 PO DAILY 01/06/19 History bisacodyl [Dulcolax (bisacodyl)] 10 [place] DAILY PRN 01/06/19 History cyanocobalamin (vitamin B-12) 1,000 mcg PO DAILY 01/06/19 01/07/19 History enzalutamide [Xtandi] 160 mg PO DAILY 01/06/19 01/07/19 History magnesium hydroxide [Milk of 30 ml PO PRN 01/06/19 History Magnesia] metoprolol tartrate 12.5 PO BID 01/06/19 History pantoprazole [Protonix] 40 mg PO DAILY 01/06/19 01/07/19 History pravastatin 40 PO QPM 01/06/19 History prednisone 2.5 mg PO QPM 01/06/19 01/07/19 History prednisone 5 mg PO DAILY 01/06/19 01/07/19 History sodium phosphates [Fleet Enema] 118 ml [place] PRN PRN 01/06/19 01/07/19 History tamsulosin 0.4 mg PO QPM 01/06/19 01/07/19 History docusate sodium 100 mg PO QPM 01/07/19 01/07/19 History ondansetron HCl [Zofran] 4 mg PO Q6HR PRN 01/07/19 01/07/19 History Exam Vital signs: Vital Signs 01/16/19 16:00 01/16/19 20:00 01/16/19 20:24 Temperature 97.9 F 97.8 F Pulse Rate 97 H 75 Respiratory Rate 20 18 Blood Pressure 102/59 L 103/61 Pulse Oximetry 96 96 96 01/16/19 23:41 01/17/19 03:47 01/17/19 08:00 Temperature 98.3 F 98.2 F 98.5 F Pulse Rate 107 H 108 H 108 H Respiratory Rate 18 18 20 Blood Pressure 112/61 111/57 L 107/57 L Pulse Oximetry 95 94 L 96 01/17/19 12:00 Temperature 98.2 F Pulse Rate 99 H Respiratory Rate 20 Blood Pressure 94/50 L Pulse Oximetry 94 L Intake & Output 01/16/19 01/17/1901/17/19 18:59 06:59 18:59 Intake Total 1005 / 1005 1155 / 1155 1005 / 1005 Output Total 150 / 150 2000 / 1999 500 / 500 Balance 855 / 855 -845 / -845 505 / 505 Weight 72.4 kg Intake: IV 1005 / 1005 1155 / 1155 1005 / 1005 KCl Inj 10 MEQ In D5W Inj 1,000 1005 / 1005 1005 / 1005 1005 / 1005 ML @ 125 mls/hr IV.CONT .Q8H3M [facility] Rx#:[id number] Levaquin 750 mg Premix Inj 150 150 / 150 ML @ 100 mls/hr IV.SIG Q48H [facility] Rx#:[id number] Oral 0 / 0 Output: Urine 1300 / 1300 500 / 500 Gastric Drainage 150 / 150 700 / 700 Right Nare Nasogastric Tube 150 / 150 700 / 700 Other: Date of Last Bowel Movement 01/16/19 01/16/19 # Incontinent Bowel Movements 1 - Constitutional no acute distress, cooperative - Routine HEENT Exam Head: Present: normocephalic - Routine Neck Exam Present: supple - Routine Respiratory Exam Present: CTA bilaterally. Absent: accessory muscle use - Routine Cardiovascular Exam Present: RRR - Routine Abdominal Exam Present: soft, normoactive bowel sounds. Absent: tenderness, distended, guarding, firm Comments: NG tube to low intermittent wall suction gastric content dark green - Routine Extremities Exam Absent: edema - Routine Skin Exam Present: dry, warm - Routine Neurological Exam Present: alert, oriented X3 Results - Labs CBC & Chem 7: 01/17/19 03:07 01/17/19 03:07 Labs: Laboratory Results - last 24 hr 01/17/19 01/17/19 01/17/19 03:07 03:07 03:07 WBC 10.3 RBC 3.80 L Hgb 11.5 L Hct 33.6 L MCV 88.5 MCH 30.4 MCHC 34.3 RDW 15.5 Plt Count 332 MPV 7.9 Prelim Diff (Auto) Slide review pending Neut % (Auto) 79.8 H Lymph % (Auto) 7.4 L [place] % (Auto) 10.4 H Eos % (Auto) 2.1 Baso % (Auto) 0.3 Neut # (Auto) 8.2 H Lymph # (Auto) 0.8 L [place] # (Auto) 1.1 H Eos # (Auto) 0.2 Baso # (Auto) 0.0 WBC Differential Manual diff final Seg Neuts % (Manual) 83 H Band Neuts % (Manual) 2 Lymphocytes % (Manual) 3 L Monocytes % (Manual) 6 Metamyelocytes % (Man) 4 H Myelocytes % (Man) 2 H Abs Neuts (Manual) 9.4 H Differential Comment . Toxic Vacuolation Present H Platelet Estimate Normal Platelet Morphology Normal Sodium 131 L Potassium 3.8 Chloride 99 Carbon Dioxide 21.3 Anion Gap 11 BUN 13 Creatinine 1.21 Random Glucose 110 H Calcium 7.6 L Total Bilirubin 0.5 AST 21 ALT 14 Alkaline Phosphatase 127 H Total Protein 5.2 L Albumin 1.7 L Amylase 224 H Lipase 3149 H - Imaging Impressions Abdomen/Pelvis CT 01/17/19 00:00 CONCLUSION: 1. Persistent dilation of small bowel loops with a discrete transition in the region of the ileum concerning for at least a partial small bowel obstruction. The degree of small bowel distention is relatively stable. 2. Postsurgical changes with findings of prior prostatectomy. Penile prostheses but the reservoir appears to be decompressed. 3. Extensive sclerosis and cortical thickening predominantly in the right ilium and acetabulum. Some sclerosis in the left ilium, pubic ramus and lower lumbar spine. 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 4. Stable small bilateral pleural effusions with concomitant atelectatic changes. Mild abdominal ascites around the hepatic convexity is slightly increased. 5. Old granulomatous disease. Abdomen X-Ray 01/17/19 07:00 CONCLUSION: Moderate severity small bowel distention without significant change. Assessment and Plan (1) Serum lipase elevation Status: Acute Code(s): R74.8 - Abnormal levels of other serum enzymes - Plan Patient is a pleasant 83-year-old male with past medical history significant for prostate cancer 25 years status post radical prostatectomy and orchiectomy. Patient also has history of congestive heart failure, hypertension, penile implant failure, prostate cancer with metastasis to bone and thrombocytopenia. Surgical history includes cholecystectomy, appendectomy, radical prostatectomy and orchiectomy. Patient presented to [facility] emergency room with report of lower abdominal pain and 3-week onset of hematuria. Currently being treated for urinary tract infection. Patient also endorses in a recurrence of his prostate cancer 3 years ago and states currently undergoing oral chemotherapy. 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 Patient describes abdominal pain as dull and aching, states pain is intermittent without associated nausea or vomiting. NG tube in place to low intermittent wall suction with 250 cc total output since 7 AM. Gastric output dark green in color without any noted bleeding. Patient denies past history of EGD but does endorse colonoscopy "many years ago". He denies constipation but does endorse a 2-week history of loose stools with nausea. Denies hematochezia or melena. Our service has been consulted to evaluate patient for elevated lipase levels. Elevated serum lipase levels--likely due to small bowel obstruction Patient presents with 3-week history of hematuria. History of prostate cancer with metastasis to bone. Patient post radical prostatectomy and orchiectomy. Currently being treated for urinary tract infection. Currently receiving oral chemotherapy for recurrence of prostate cancer. Recent diagnosis of small bowel obstruction being managed medically. NG tube to low intermittent wall suction productive of dark green gastric output. Patient reports small brown BM this a.m. with positive flatus. -WBC 10.3 hemoglobin 11.5 hematocrit 33.6 -Amylase 224 lipase 3149 trending upwards 01/17/2019 CT abdomen and pelvis reveals pancreas without mass or calcifications. 1. Persistent dilation of small bowel loops with a discrete transition in the region of the ileum concerning for at least a partial small bowel obstruction. The degree of small bowel distention is relatively stable. 2. Postsurgical changes with findings of prior prostatectomy. Penile prostheses but the reservoir appears to be decompressed. 3. Extensive sclerosis and cortical thickening predominantly in the right ilium and acetabulum. Some sclerosis in the left ilium, pubic ramus and lower lumbar spine. 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 4. Stable small bilateral pleural effusions with concomitant atelectatic changes. Mild abdominal ascites around the hepatic convexity is slightly increased. Plan NG tube to low intermittent wall suction Continue to monitor labs CEA CA 199 AFP Antiemetics and analgesics as per attending N.p.o. Bowel regimen Agree with initiation of TPN Lactinex Continue IV antibiotics Reglan as prokinetic Continue PPI Supportive care Further recommendations to follow This patient has been seen by myself and Dr. Black and this note is written on his behalf - Attending Attestation Dr. Black
[2019-01-17 18:50] LABS: Carcinoembryonic Antigen 2.2 ng/mL (0.2-5.0)
[2019-01-17] MEDS ORDERED: Multivitamin Inj 10 ML, Folic Acid Inj 1 MG in AA 5%/D20W - Electrolytes 2,000 ML IV.SIG SCH (20:00)
[2019-01-17] MEDS: [UNRECOGNIZED DRUG - OTHER] IV.SIG SCH (21:08)
[2019-01-17] MEDS: ELECTROLYTES IV.SIG SCH (21:08)
[2019-01-17] MEDS: Mirtazapine 15 MG Tablet PO SCH (21:34)
[2019-01-18 03:56] LABS: Baso % (Auto) 0.5 % (0.0-2.0); Eos # (Auto) 0.3 th/mm3 (0.0-0.4); Eos % (Auto) 3.9 % (0.0-4.0); Hematocrit 31.2 % (39.0-51.0); Hemoglobin 10.9 gm/dL (13.0-17.0); Lymph # (Auto) 0.9 th/mm3 (1.0-4.8); Lymph % (Auto) 10.5 % (9.0-44.0); Mean Corpuscular HGB Conc 34.8 % (32.0-36.0); Mean Corpuscular Hemoglobin 30.4 pg (27.0-34.0); Mean Corpuscular Volume 87.2 fL (80.0-100.0); Mean Platelet Volume 7.7 fL (7.0-11.0); Mono % (Auto) 11.9 % (0.0-8.0); Neut # (Auto) 6.3 th/mm3 (1.8-7.7); Neut % (Auto) 73.2 % (16.0-70.0); Platelet Count 346 th/mm3 (150-450); Red Blood Count 3.58 mil/mm3 (4.50-5.90); Red Cell Distribution Width 14.9 % (11.6-17.2); White Blood Count 8.6 th/mm3 (4.0-11.0)
[2019-01-18 04:31] LABS: Calcium 7.2 mg/dL (8.5-10.1); Potassium 3.7 meq/L (3.5-5.1)
[2019-01-18 04:43] LABS: Albumin 1.7 g/dL (3.4-5.0)
[2019-01-18] MEDS: Potassium Chloride Inj 10 MEQ in Dextrose 5% in Water Inj 1,000 ML IV.CONT SCH ×2 (05:32)
[2019-01-18 06:49] LABS: Lymphocytes 5 % (9-44); Metamyelocytes 2 % (0-1); Monocytes 14 % (0-8); Myelocytes 4 % (0-0)
[2019-01-18 06:50] LABS: Acanthocytes Occ; Platelet Estimate Normal (Normal); Platelet Morphology Normal (Normal)
[2019-01-18] MEDS ORDERED: Heparin Central Flush 100 UNIT/ML 5 ML Vial IV.FLUSH SCH (09:00)
[2019-01-18] MEDS: Lactobacillus Acidophilus/L. Spores Tablet PO SCH ×2 (10:13→21:25)
[2019-01-18] MEDS: Heparin Central Flush 100 UNIT/ML 5 ML Vial IV.FLUSH SCH (10:13)
[2019-01-18] MEDS: Senna/Docusate Sodium 8.6/50 MG Tablet PO SCH ×2 (10:13→21:26)
[2019-01-18] MEDS: Metoprolol Tartrate 25 MG Tablet PO SCH ×2 (10:13→21:26)
[2019-01-18] MEDS: XTANDI 160 MG PO SCH (10:14)
--- NOTE | 2019-01-18 10:31 | P.PNGS ---
Subjective Interval history: DAILY PROGRESS NOTE FOR SURGICAL ATTENDING, DR. DEYANIRA LIRIANO Resting in bed Patient reports he is feeling better but still weak Physical Exam Vital signs: Vital Signs 01/17/19 12:00 01/17/19 16:00 01/17/19 20:00 Temperature 98.2 F 97.4 F L 97.5 F L Pulse Rate 99 H 99 H 101 H Respiratory Rate 20 20 18 Blood Pressure 94/50 L 116/59 L 98/57 L Pulse Oximetry 94 L 95 94 L 01/18/19 00:00 01/18/19 04:00 01/18/19 08:00 Temperature 97.8 F 98.8 F 98.7 F Pulse Rate 101 H 107 H 85 Respiratory Rate 15 16 20 Blood Pressure 120/58 L 114/56 L 122/61 Pulse Oximetry 93 L 92 L 95 Intake & Output 01/17/19 01/18/19 01/18/19 18:59 06:59 18:59 Intake Total 1005 / 1005 2750 / 2750 Output Total 800 / 800 100 / 100 Balance 205 / 205 2650 / 2650 Weight 88.5 kg Intake: IV 1005 / 1005 1850 / 1850 KCl Inj 10 MEQ In D5W Inj 1,000 1005 / 1005 1850 / 1850 ML @ 125 mls/hr IV.CONT .Q8H3M [facility] Rx#:[id number] Bladder Irrigation Fluid - 900 / 900 Amount Retained 3-way Urethral 900 / 900 Output: Urine 500 / 500 Gastric Drainage 300 / 300 100 / 100 Right Nare Nasogastric Tube 300 / 300 100 / 100 Other: Bladder Irrigation Fluid - Amount Instilled 3-way Urethral 3,000 900 Bladder Irrigation Fluid - Amount Drained 3-way Urethral 3,250 1,700 Date of Last Bowel Movement 01/17/19 01/17/19 # Bowel Movements 1 Narrative: Alert and awake Abd: soft; non tender; NGT in place - Urinary Catheter Management Indwelling Urethral Catheter Cath placed during this visit: yes, but has since been removed by the nurse Reason for continuing: Gross Hematuria Insertion date: 01/09/19 Insertion time: 17:35 Removal date: 01/09/19 Removal time: 17:30 3-way Urethral Cath placed during this visit: no Reason for continuing: Gross Hematuria Results - Labs 01/19/19 04:05 01/19/19 04:05 Laboratory Results - last 24 hr 01/17/19 01/17/19 01/17/19 03:07 18:10 18:10 WBC RBC Hgb Hct MCV MCH MCHC RDW Plt Count MPV Prelim Diff (Auto) Neut % (Auto) Lymph % (Auto) [place] % (Auto) Eos % (Auto) Baso % (Auto) Neut # (Auto) Lymph # (Auto) [place] # (Auto) Eos # (Auto) Baso # (Auto) WBC Differential Seg Neuts % (Manual) Band Neuts % (Manual) Lymphocytes % (Manual) Monocytes % (Manual) Metamyelocytes % (Man) Myelocytes % (Man) Abs Neuts (Manual) Differential Comment Platelet Estimate Platelet Morphology Acanthocytes (Spur) Sodium Potassium Chloride Carbon Dioxide Anion Gap BUN Creatinine Estimated GFR Random Glucose Calcium Calcium Adj for Albumin Albumin Amylase 224 H Lipase Tumor Marker AFP 1.0 Carcinoembryonic Ag 2.2 CA 19-9 Antigen 10.9 01/18/19 01/18/19 03:21 03:21 WBC 8.6 RBC 3.58 L Hgb 10.9 L Hct 31.2 L MCV 87.2 MCH 30.4 MCHC 34.8 RDW 14.9 Plt Count 346 MPV 7.7 Prelim Diff (Auto) Slide review pending Neut % (Auto) 73.2 H Lymph % (Auto) 10.5 [place] % (Auto) 11.9 H Eos % (Auto) 3.9 Baso % (Auto) 0.5 Neut # (Auto) 6.3 Lymph # (Auto) 0.9 L [place] # (Auto) 1.0 H Eos # (Auto) 0.3 Baso # (Auto) 0.0 WBC Differential Manual diff final Seg Neuts % (Manual) 72 H Band Neuts % (Manual) 3 Lymphocytes % (Manual) 5 L Monocytes % (Manual) 14 H Metamyelocytes % (Man) 2 H Myelocytes % (Man) 4 H Abs Neuts (Manual) 7.0 Differential Comment . Platelet Estimate Normal Platelet Morphology Normal Acanthocytes (Spur) Occ H Sodium 136 Potassium 3.7 Chloride 105 Carbon Dioxide 23.0 Anion Gap 8 BUN 13 Creatinine 1.18 Estimated GFR 59 L Random Glucose 129 H Calcium 7.2 L* Calcium Adj for Albumin 9.0 Albumin 1.7 L Amylase Lipase 2186 H Tumor Marker AFP Carcinoembryonic Ag CA 19-9 Antigen - Imaging Imaging: ITS Impressions Liver Ultrasound 01/07/19 00:00 CONCLUSION: 1. Minimal increase in echogenicity of the liver without mass or hydronephrosis. 2. There is no ductal dilatation Chest X-Ray 01/11/19 00:00 CONCLUSION: Mild bilateral infiltrates Abdomen/Pelvis CT 01/17/19 00:00 CONCLUSION: 1. Persistent dilation of small bowel loops with a discrete transition in the region of the ileum concerning for at least a partial small bowel obstruction. The degree of small bowel distention is relatively stable. 2. Postsurgical changes with findings of prior prostatectomy. Penile prostheses but the reservoir appears to be decompressed. 3. Extensive sclerosis and cortical thickening predominantly in the right ilium and acetabulum. Some sclerosis in the left ilium, pubic ramus and lower lumbar spine. 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 4. Stable small bilateral pleural effusions with concomitant atelectatic changes. Mild abdominal ascites around the hepatic convexity is slightly increased. 5. Old granulomatous disease. Abdomen X-Ray 01/17/19 07:00 CONCLUSION: Moderate severity small bowel distention without significant change. Assessment and Plan - Assessment (1) Acute hemorrhagic cystitis Code(s): N30.01 - Acute cystitis with hematuria Status: Acute (2) UTI (urinary tract infection) Code(s): N39.0 - Urinary tract infection, site not specified Status: Acute (3) Complicated urinary tract infection Code(s): N39.0 - Urinary tract infection, site not specified Status: Acute (4) Ileus Code(s): K56.7 - Ileus, unspecified Status: Acute (5) Elevated amylase and lipase Code(s): R74.8 - Abnormal levels of other serum enzymes Status: Acute - Plan 83 year old male with recurrent prostate cancer; UTI; pneumonia; radiological findings of SBO -NGT in place; output tampering down -Will attempt clamping trials today -Continue TPN tonight -Monitor electrolytes -ID following -I was asked by Charge Nurse Mari to call the patient's --- I tried to explain to the the patient's condition -- she did not want to listen to most of what I had to say. I updated her as best I could regarding is abdominal issues. She had multiple questions about transferring the patient to [facility] as well as his other medical conditions. I will defer to the Family Practice Team which I have contracted and provided them with the 's number. -Will continue non operative treatment - Attending Attestation NOTE FOR SURGICAL ATTENDING, DR. DEYANIRA LIRIANO I agree with above assessment and plan. The exam, history, and the medical decision-making described in the above note were completed with the assistance of the mid-level provider. I reviewed and agree with the findings presented. I attest that I had a [id number] encounter with the patient on the same day, and personally performed and documented my assessment and findings in the medical record. The following services were provided during this hospital visit: Chart data review, vital sign assessments/reviewing monitor data Review of consultations notes if present. Medication orders/review and/or management Ordering and/or reviewing lab tests Ordering and/or interpreting/reviewing x-rays and/or diagnostic studies Care of the patient and discussion of the patient with the care team Documentation time To help prompt me to consider important information that might be impacting today's encounter and assessment, Information from prior notes written by myself or my colleagues may have been "brought forward/copy and pasted" into today's note.
--- NOTE | 2019-01-18 10:31 | P.DIET ---
Nutritional Evaluation Type of nutrition evaluation: initial Nutrition consult regarding: TPN/PPN Objective - Diagnosis UTI, Hemorrhagic Cystitis, - Objective Body Weight Used for Calculations: IBW (148#/ 67.3 kg) Energy Needs - Lower Range (kCal/kg): 25 Energy Needs - Upper Range (kCal/kg): 30 Lower Limit kCal/kg (kCals): 1,683 Upper Limit kCal/kg (kCals): 2,019 Lower Limit Protein Factor (Grams per Kg): 1.0 Upper Limit Protein Factor (Grams per Kg): 1.5 Lower Protein Needs (Protein): 67 Upper Protein Needs (Protein): 101 Dietitian Reviewed in Medical Record: Curent medications, Intake & Output, Labs , Medical history, TPN/PPN Diet Order: NPO Objective Comments: Med hx includes prostate CA with bone mets Labs: lipase 2186, TG 231 Meds include remeron, lactinex, protonix, Vit B12 Assessment Assessment: Pt is at high nutrition risk, currently npo with ng-t to LIWS. TPN of Climix E @ 83 mls/hr with 20% lipids 250 mls/day has been ordered. This will adequately meet needs by providing a total of 2260 kcals and 100 gms protein. Elevated TG noted, request weekly TG check. Lipids should be held if TG rises above 400. Recommendations: Continue current TPN/LIPIDS Monitor glucose closely RD following. Dietitian to Monitor: Lab values, Glucose level, Intake & Output, TPN/PPN tolerance, Weight change, Diet advancement, Medical course
--- NOTE | 2019-01-18 10:55 | P.PNFP ---
Subjective Interval history: Resting comfortably in bed. He endorses lightheadedness with standing. He states that he feels weak and tired. He otherwise has no lightheadedness, dizziness, headache, nausea, vomiting, chest pain, palpitations, shortness of breath, abdominal pain. He does pass occasional gas. He is still not had a normal bowel movement. <Kayode Zhao Garg - 01/18/19 10:55> Results - Labs Result diagrams: 01/19/19 04:05 01/19/19 04:05 <WanPat Claribel - 01/19/19 12:09> Abnormal lab results 01/19/19 01/19/19 01/19/19 Range/Units 04:05 04:05 04:05 RBC 3.91 L (4.50-5.90) mil/mm3 Hgb 12.1 L (13.0-17.0) gm/dL Hct 34.5 L (39.0-51.0) % Neut % (Auto) 75.4 H (16.0-70.0) % [place] % (Auto) 10.5 H (0.0-8.0) % [place] # (Auto) 1.1 H (0.0-0.9) th/mm3 Band Neuts % (Manual) 8 H (0-6) % Lymphocytes % (Manual) 3 L (9-44) % Eosinophils % (Manual) 10 H (0-4) % Metamyelocytes % (Man) 5 H (0-1) % Myelocytes % (Man) 2 H (0-0) % Abs Neuts (Manual) 8.2 H (1.8-7.7) th/mm3 Nucleated RBCs/100 WBC 1 H (0-0) /100 WBC Sodium 135 L (136-145) meq/L BUN 24 H (7-18) mg/dL Estimated GFR 68 L (>89) mL/min POC Glucose (68-110) mg/dl Random Glucose 124 H (74-106) mg/dL Calcium 7.5 L (8.5-10.1) mg/dL Total Protein 5.3 L (6.4-8.2) g/dL Albumin 1.7 L (3.4-5.0) g/dL Triglycerides 512 H (42-150) mg/dL Lipase 2048 H (73-393) U/L 01/19/19 Range/Units 06:27 RBC (4.50-5.90) mil/mm3 Hgb (13.0-17.0) gm/dL Hct (39.0-51.0) % Neut % (Auto) (16.0-70.0) % [place] % (Auto) (0.0-8.0) % [place] # (Auto) (0.0-0.9) th/mm3 Band Neuts % (Manual) (0-6) % Lymphocytes % (Manual) (9-44) % Eosinophils % (Manual) (0-4) % Metamyelocytes % (Man) (0-1) % Myelocytes % (Man) (0-0) % Abs Neuts (Manual) (1.8-7.7) th/mm3 Nucleated RBCs/100 WBC (0-0) /100 WBC Sodium (136-145) meq/L BUN (7-18) mg/dL Estimated GFR (>89) mL/min POC Glucose 167 H (68-110) mg/dl Random Glucose (74-106) mg/dL Calcium (8.5-10.1) mg/dL Total Protein (6.4-8.2) g/dL Albumin (3.4-5.0) g/dL Triglycerides (42-150) mg/dL Lipase (73-393) U/L Short CBC 01/19/19 Range/Units 04:05 WBC 10.1 (4.0-11.0) th/mm3 Hgb 12.1 L (13.0-17.0) gm/dL Hct 34.5 L (39.0-51.0) % Plt Count 410 (150-450) th/mm3 [facility] 01/19/19 04:05 Sodium 135 L Potassium 3.6 Chloride 103 Carbon Dioxide 22.5 BUN 24 H Creatinine 1.04 Calcium 7.5 L Liver Function 01/19/19 Range/Units 04:05 Total Bilirubin 0.3 (0.2-1.0) mg/dL AST 27 (15-37) U/L ALT 18 (12-78) U/L Alkaline Phosphatase 104 (45-117) U/L Albumin 1.7 L (3.4-5.0) g/dL <Pat Blas - 01/19/19 12:09> Abnormal lab results 01/17/19 01/18/19 01/18/19 Range/Units 03:07 03:21 03:21 RBC 3.58 L (4.50-5.90) mil/mm3 Hgb 10.9 L (13.0-17.0) gm/dL Hct 31.2 L (39.0-51.0) % Neut % (Auto) 73.2 H (16.0-70.0) % [place] % (Auto) 11.9 H (0.0-8.0) % Lymph # (Auto) 0.9 L (1.0-4.8) th/mm3 [place] # (Auto) 1.0 H (0.0-0.9) th/mm3 Seg Neuts % (Manual) 72 H (16-70) % Lymphocytes % (Manual) 5 L (9-44) % Monocytes % (Manual) 14 H (0-8) % Metamyelocytes % (Man) 2 H (0-1) % Myelocytes % (Man) 4 H (0-0) % Acanthocytes (Spur) Occ H (None) Estimated GFR 59 L (>89) mL/min Random Glucose 129 H (74-106) mg/dL Calcium 7.2 L* (8.5-10.1) mg/dL Albumin 1.7 L (3.4-5.0) g/dL Amylase 224 H (25-115) U/L Lipase 2186 H (73-393) U/L Short CBC 01/18/19 Range/Units 03:21 WBC 8.6 (4.0-11.0) th/mm3 Hgb 10.9 L (13.0-17.0) gm/dL Hct 31.2 L (39.0-51.0) % Plt Count 346 (150-450) th/mm3 BMP 01/18/19 03:21 Sodium 136 Potassium 3.7 Chloride 105 Carbon Dioxide 23.0 BUN 13 Creatinine 1.18 Calcium 7.2 L* Liver Function 01/18/19 Range/Units 03:21 Albumin 1.7 L (3.4-5.0) g/dL <Zhao Brian - 01/18/19 10:55> - Imaging Impressions Abdomen X-Ray 01/17/19 07:00 CONCLUSION: Moderate severity small bowel distention without significant change. <Kayode Zhao Garg - 01/18/19 10:55> Physical Exam Vital signs: Vital Signs 01/18/19 16:00 01/18/19 19:54 01/19/19 00:17 Temperature 97.5 F L 98.9 F 97.5 F L Pulse Rate 99 H 80 99 H Respiratory Rate 20 18 20 Blood Pressure 104/59 L 111/58 L 111/55 L Pulse Oximetry 95 94 L 96 01/19/19 04:00 01/19/19 08:00 Temperature 97.5 F L 98.0 F Pulse Rate 114 H 108 H Respiratory Rate 21 20 Blood Pressure 131/63 113/55 L Pulse Oximetry 95 98 Intake & Output 01/18/19 01/19/19 01/19/19 18:59 06:59 18:59 Intake Total 1850 / 1850 2400 / 2400 Output Total 50 / 50 0 / 0 250 / 250 Balance 1800 / 1800 2400 / 2400 -250 / -250 Weight 68 kg Intake: IV 250 / 250 2400 / 2400 Clinimix E 5%/D20W Inj 2,000 ML 1999 / 1999 @ 83 mls/hr IV.SIG DAILY@1999 [facility] Rx#:[id number] Intralipid 20% Inj 250 ML @ 31. 250 / 250 250 / 250 25 mls/hr IV.SIG DAILY@1999 [facility] Rx#:[id number] Levaquin 750 mg Premix Inj 150 150 / 150 ML @ 100 mls/hr IV.SIG Q48H [facility] Rx#:[id number] Oral 1600 / 1600 0 / 0 Output: Stool 250 / 250 Gastric Drainage 50 / 50 0 / 0 Right Nare Nasogastric Tube 50 / 50 0 / 0 Other: Bladder Irrigation Fluid - Amount Instilled 3-way Urethral 900 Date of Last Bowel Movement 01/17/19 01/19/19 01/19/19 # Bowel Movements 1 # Incontinent Bowel Movements 2 <Pat Blas - 01/19/19 12:09> Vital Signs 01/17/19 12:00 01/17/19 16:00 01/17/19 20:00 Temperature 98.2 F 97.4 F L 97.5 F L Pulse Rate 99 H 99 H 101 H Respiratory Rate 20 20 18 Blood Pressure 94/50 L 116/59 L 98/57 L Pulse Oximetry 94 L 95 94 L 01/18/19 00:00 01/18/19 04:00 01/18/19 08:00 Temperature 97.8 F 98.8 F 98.7 F Pulse Rate 101 H 107 H 85 Respiratory Rate 15 16 20 Blood Pressure 120/58 L 114/56 L 122/61 Pulse Oximetry 93 L 92 L 95 Intake & Output 01/17/19 01/18/19 01/18/19 18:59 06:59 18:59 Intake Total 1005 / 1005 2750 / 2750 Output Total 800 / 800 100 / 100 Balance 205 / 205 2650 / 2650 Weight 88.5 kg Intake: IV 1005 / 1005 1850 / 1850 KCl Inj 10 MEQ In D5W Inj 1,000 1005 / 1005 1850 / 1850 ML @ 125 mls/hr IV.CONT .Q8H3M [facility] Rx#:[id number] Bladder Irrigation Fluid - 900 / 900 Amount Retained 3-way Urethral 900 / 900 Output: Urine 500 / 500 Gastric Drainage 300 / 300 100 / 100 Right Nare Nasogastric Tube 300 / 300 100 / 100 Other: Bladder Irrigation Fluid - Amount Instilled 3-way Urethral 3,000 900 Bladder Irrigation Fluid - Amount Drained 3-way Urethral 3,250 1,700 Date of Last Bowel Movement 01/17/19 01/17/19 # Bowel Movements 1 <Zhao Brian - 01/18/19 10:55> Narrative: General: Elderly male, no acute distress. Eyes: EOMI, anicteric scleral, no conjunctival injection ENT: Atraumatic, MMM, NG tube in place Neck: Trachea midline, no masses Respiratory: Normal respiratory effort, wet crackles at both lung bases with good aeration Cardiovascular: Regular rate and rhythm without murmur, 1+ pedal pulses, no peripheral edema Abdomen: Bowel sounds hypoactive. Mild left lower quadrant tenderness with voluntary guarding. Psychiatric: Alert and oriented. Normal affect. <Zhao Brian - 01/18/19 10:55> - Urinary Catheter Management 3-way Urethral Cath placed during this visit: no <Pat Blas - 01/19/19 12:09> no <Zhao Brian - 01/18/19 12:53> Reason for continuing: Gross Hematuria <Stagliano Zhao Garg - 01/18/19 10: 55> Indwelling Urethral Catheter Cath placed during this visit: no <Pat Blas - 01/19/19 12:09> yes, but has since been removed by the nurse <Zhao Brian - 01/18/19 12:53> Reason for continuing: Gross Hematuria <Stagliano Zhao Garg 01/18/19 10: 55> Insertion date: 01/09/19 <Stagliano R1Lindsays Elizabeth - 01/18/19 10:55> Insertion time: 17:35 <Stagliano R1Zhao 01/18/19 10:55> Removal date: 01/09/19 <Stagliano R1Zhao - 01/18/19 10:55> Removal time: 17:30 <Stagliano R1Zhao - 01/18/19 10:55> Assessment and Plan - Assessment (1) Partial bowel obstruction Code(s): K56.600 - Partial intestinal obstruction, unspecified as to cause Status: Acute (2) Pneumonia Code(s): J18.9 - Pneumonia, unspecified organism Status: Acute (3) Complicated urinary tract infection Code(s): N39.0 - Urinary tract infection, site not specified Status: Acute (4) Gross hematuria Code(s): R31.0 - Gross hematuria Status: Resolved (5) Hypertension Code(s): I10 - Essential (primary) hypertension Status: Chronic (6) Prostate cancer Code(s): C61 - Malignant neoplasm of prostate Status: Chronic <Pat Blas - 01/19/19 12:09> (1) Partial bowel obstruction Code(s): K56.600 - Partial intestinal obstruction, unspecified as to cause Status: Acute Plan: (2) Pneumonia Code(s): J18.9 - Pneumonia, unspecified organism Status: Acute Plan: (3) Complicated urinary tract infection Code(s): N39.0 - Urinary tract infection, site not specified Status: Acute Plan: (4) Gross hematuria Code(s): R31.0 - Gross hematuria Status: Resolved Plan: (5) Hypertension Code(s): I10 - Essential (primary) hypertension Status: Chronic Plan: (6) Prostate cancer Code(s): C61 - Malignant neoplasm of prostate Status: Chronic Plan: <Zhao Brian - 01/18/19 12:53> - Assessment and Plan He is an 83-year-old male with a history of prostate cancer admitted with hematuria found to have a partial small bowel obstruction. Currently medically managing, however Dr. Crowell is following. Partial small bowel obstruction / ileus: Had multiple days with no bowel movements and worsening distention and nausea/vomiting on 01/11. KUB at that time showed an abnormal bowel gas pattern. He was put NPO, NG tube to suction, IV fluids. KUB on 01/14 showed significant decrease in the prominence of bowel loops. General surgery consulted and recommends continued medical management at this time. Continued recommendations are appreciated. Does have some bowel sounds and flatus, but has yet to have BM NG tube with less output today Continue TPN Lipase is now downtrending. GI believes this to be secondary to SBO. Sepsis: Resolved. Blood cultures negative to date, lactic acid normalized, no current leukocytosis. Afebrile. Infectious disease following On Levaquin (Zyvox discontinued) Complicated UTI with gross hematuria: Culture positive for Pseudomonas. Originally came in with hematuria, has had some transient hematuria yesterday. Pyridium for pain control Flomax, hold oxybutynin H&H stable, will continue to follow Blood cultures negative to date Antibiotics as above Pneumonia: Chest x-ray showing bilateral infiltrates on 01/11 Respiratory status stable Antibiotics as above Incentive spirometry Hypertension: Continue home medication metoprolol Hyperlipidemia: Continue home medication pravastatin Prostate cancer with bone metastases We will follow-up with urologist at the [facility] for management as outpatient Fluids: On TPN Electrolytes: monitor and replete as needed Nutrition: On TPN GI prophylaxis: Daily IV Protonix (on p.o. Protonix at home) VTE prophylaxis: b/l SCDs (pharmacologic prophylaxis contraindicated due to hematuria) Disposition: Significant deconditioning, daily PT, they recommend PT at rehab Patient care discussed with Dr. Yeboah. <Kayode GargZhao J - 01/18/19 10:55> - Attending Attestation The exam, history, and the medical decision-making described in the above note were completed with the assistance of the resident physician. I reviewed and agree with the findings presented. I attest that I had a [id number] encounter with the patient on the same day, and personally performed and documented my assessment and findings in the medical record. he is pretty miserable with the NG tube and the ileus. He stated he was reconsidering his reluctance to do surgery if this dragged on much longer. I asked him to get up out of bed and move a bit as that can help this condition. His was called by Dr Yeboah and it was discussed that his TPN had been started. His is very concerned about all aspects of his care and was reassured that our medical team would do our best to attend to his needs <Pat Blas - 01/19/19 12:09>
[2019-01-18] MEDS: Pantoprazole Inj 40 MG Vial IV.PUSH SCH (12:45)
--- NOTE | 2019-01-18 14:17 | P.PNGI ---
Subjective Interval history: Patient semirecumbent in bed Denies abdominal pain with NG tube in place to low intermittent wall suction Reports generalized weakness TPN infusing Physical Exam Vital signs: Vital Signs 01/17/19 16:00 01/17/19 20:00 01/18/19 00:00 Temperature 97.4 F L 97.5 F L 97.8 F Pulse Rate 99 H 101 H 101 H Respiratory Rate 20 18 15 Blood Pressure 116/59 L 98/57 L 120/58 L Pulse Oximetry 95 94 L 93 L 01/18/19 04:00 01/18/19 08:00 01/18/19 12:00 Temperature 98.8 F 98.7 F 98.7 F Pulse Rate 107 H 85 91 H Respiratory Rate 16 20 20 Blood Pressure 114/56 L 122/61 111/58 L Pulse Oximetry 92 L 95 95 Intake & Output 01/17/19 01/18/19 01/18/19 18:59 06:59 18:59 Intake Total 1005 / 1005 2750 / 2750 250 / 250 Output Total 800 / 800 100 / 100 Balance 205 / 205 2650 / 2650 250 / 250 Weight 88.5 kg Intake: IV 1005 / 1005 1850 / 1850 250 / 250 KCl Inj 10 MEQ In D5W Inj 1,000 1005 / 1005 1850 / 1850 ML @ 125 mls/hr IV.CONT .Q8H3M [facility] Rx#:[id number] Intralipid 20% Inj 250 ML @ 31. 250 / 250 25 mls/hr IV.SIG DAILY@2000 [facility] Rx#:[id number] Bladder Irrigation Fluid - 900 / 900 Amount Retained 3-way Urethral 900 / 900 Output: Urine 500 / 500 Gastric Drainage 300 / 300 100 / 100 Right Nare Nasogastric Tube 300 / 300 100 / 100 Other: Bladder Irrigation Fluid - Amount Instilled 3-way Urethral 3,000 900 Bladder Irrigation Fluid - Amount Drained 3-way Urethral 3,250 1,700 Date of Last Bowel Movement 01/17/19 01/17/19 # Bowel Movements 1 - Constitutional no acute distress, cooperative - Routine HEENT Exam Head: Present: normocephalic ENT: Present: mucous membranes moist - Routine Respiratory Exam Present: CTA bilaterally - Routine Cardiovascular Exam Present: RRR - Routine Abdominal Exam Present: soft. Absent: tenderness, distended, guarding, firm Comments: NG tube to low intermittent wall suction Drainage per ICU nurse= 50 mL's since 7 AM decreasing-output tapering Hypoactive bowel sounds - Routine Skin Exam Present: dry, warm. Absent: pallor - Routine Neurological Exam Present: alert, oriented X3 - Routine Psychiatric Exam Present: normal affect, cooperative - Urinary Catheter Management Indwelling Urethral Catheter Cath placed during this visit: yes, but has since been removed by the nurse Urethral indwelling: Yes Reason for continuing: Gross Hematuria Insertion date: 01/09/19 Insertion time: 17:35 Removal date: 01/09/19 Removal time: 17:30 3-way Urethral Cath placed during this visit: no Reason for continuing: Gross Hematuria Results - Labs CBC & Chem 7: 01/18/19 03:21 01/18/19 03:21 Laboratory Results - last 24 hr 01/17/19 01/17/19 01/18/19 18:10 18:10 03:21 WBC 8.6 RBC 3.58 L Hgb 10.9 L Hct 31.2 L MCV 87.2 MCH 30.4 MCHC 34.8 RDW 14.9 Plt Count 346 MPV 7.7 Prelim Diff (Auto) Slide review pending Neut % (Auto) 73.2 H Lymph % (Auto) 10.5 Ellis % (Auto) 11.9 H Eos % (Auto) 3.9 Baso % (Auto) 0.5 Neut # (Auto) 6.3 Lymph # (Auto) 0.9 L Ellis # (Auto) 1.0 H Eos # (Auto) 0.3 Baso # (Auto) 0.0 WBC Differential Manual diff final Seg Neuts % (Manual) 72 H Band Neuts % (Manual) 3 Lymphocytes % (Manual) 5 L Monocytes % (Manual) 14 H Metamyelocytes % (Man) 2 H Myelocytes % (Man) 4 H Abs Neuts (Manual) 7.0 Differential Comment . Platelet Estimate Normal Platelet Morphology Normal Acanthocytes (Spur) Occ H Sodium Potassium Chloride Carbon Dioxide Anion Gap BUN Creatinine Estimated GFR Random Glucose Calcium Calcium Adj for Albumin Albumin Lipase Tumor Marker AFP 1.0 Carcinoembryonic Ag 2.2 CA 19-9 Antigen 10.9 01/18/19 03:21 WBC RBC Hgb Hct MCV MCH MCHC RDW Plt Count MPV Prelim Diff (Auto) Neut % (Auto) Lymph % (Auto) Ellis % (Auto) Eos % (Auto) Baso % (Auto) Neut # (Auto) Lymph # (Auto) Ellis # (Auto) Eos # (Auto) Baso # (Auto) WBC Differential Seg Neuts % (Manual) Band Neuts % (Manual) Lymphocytes % (Manual) Monocytes % (Manual) Metamyelocytes % (Man) Myelocytes % (Man) Abs Neuts (Manual) Differential Comment Platelet Estimate Platelet Morphology Acanthocytes (Spur) Sodium 136 Potassium 3.7 Chloride 105 Carbon Dioxide 23.0 Anion Gap 8 BUN 13 Creatinine 1.18 Estimated GFR 59 L Random Glucose 129 H Calcium 7.2 L* Calcium Adj for Albumin 9.0 Albumin 1.7 L Lipase 2186 H Tumor Marker AFP Carcinoembryonic Ag CA 19-9 Antigen Microbiology 01/12/19 03:48 Blood - Peripheral Aerobic Blood Culture - Final No growth in 5 days 01/12/19 03:48 Blood - Peripheral Anaerobic Blood Culture - Final No growth in 5 days 01/12/19 03:40 Blood - Peripheral Aerobic Blood Culture - Final No growth in 5 days 01/12/19 03:40 Blood - Peripheral Anaerobic Blood Culture - Final No growth in 5 days - Imaging Impressions Abdomen X-Ray 01/17/19 07:00 CONCLUSION: Moderate severity small bowel distention without significant change. Assessment and Plan (1) Serum lipase elevation Status: Acute Code(s): R74.8 - Abnormal levels of other serum enzymes - Plan Patient is a pleasant 83-year-old male with past medical history significant for prostate cancer 25 years status post radical prostatectomy and orchiectomy. Patient also has history of congestive heart failure, hypertension, penile implant failure, prostate cancer with metastasis to bone and thrombocytopenia. Surgical history includes cholecystectomy, appendectomy, radical prostatectomy and orchiectomy. Patient presented to [facility] emergency room with report of lower abdominal pain and 3-week onset of hematuria. Currently being treated for urinary tract infection. Patient also endorses in a recurrence of his prostate cancer 3 years ago and states currently undergoing oral chemotherapy. 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 Patient describes abdominal pain as dull and aching, states pain is intermittent without associated nausea or vomiting. NG tube in place to low intermittent wall suction with 250 cc total output since 7 AM. Gastric output dark green in color without any noted bleeding. Patient denies past history of EGD but does endorse colonoscopy "many years ago". He denies constipation but does endorse a 2-week history of loose stools with nausea. Denies hematochezia or melena. Our service has been consulted to evaluate patient for elevated lipase levels. Elevated serum lipase levels--likely due to small bowel obstruction Patient presents with 3-week history of hematuria. History of prostate cancer with metastasis to bone. Patient post radical prostatectomy and orchiectomy. Currently being treated for urinary tract infection. Currently receiving oral chemotherapy for recurrence of prostate cancer. Recent diagnosis of small bowel obstruction being managed medically. NG tube to low intermittent wall suction productive of dark green gastric output. Patient reports small brown BM this a.m. with positive flatus. -WBC 10.3 hemoglobin 11.5 hematocrit 33.6 -Amylase 224 lipase 3149 trending upwards 01/17/2019 CT abdomen and pelvis reveals pancreas without mass or calcifications. 1. Persistent dilation of small bowel loops with a discrete transition in the region of the ileum concerning for at least a partial small bowel obstruction. The degree of small bowel distention is relatively stable. 2. Postsurgical changes with findings of prior prostatectomy. Penile prostheses but the reservoir appears to be decompressed. 3. Extensive sclerosis and cortical thickening predominantly in the right ilium and acetabulum. Some sclerosis in the left ilium, pubic ramus and lower lumbar spine. 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 4. Stable small bilateral pleural effusions with concomitant atelectatic changes. Mild abdominal ascites around the hepatic convexity is slightly increased. 01/18/2019 Small bowel obstruction Elevated serum lipase levels In the presence of small bowel obstruction Lipase 2186 tumor marker AFP 1.0 CEA 2.2 CA 199 10.9 NG tube to low intermittent wall suction-decreasing amount of output --Patient reporting generalized weakness --TPN infusing Plan NG tube to low intermittent wall suction Continue to monitor labs as lipase levels are trending downward Antiemetics and analgesics as per attending N.p.o. Bowel regimen Continue TPN Lactinex Continue IV antibiotics Reglan as prokinetic Continue PPI Supportive care GI will sign off at this time, please notify for any further assistance This patient has been seen by myself and Dr. Black and this note is written on his behalf - Attending Attestation
[2019-01-18] MEDS: [UNRECOGNIZED DRUG - OTHER] IV.SIG SCH (21:24)
[2019-01-18] MEDS: ELECTROLYTES IV.SIG SCH (21:24)
[2019-01-18] MEDS: Mirtazapine 15 MG Tablet PO SCH (21:26)
[2019-01-19 04:51] LABS: Baso # (Auto) 0.1 th/mm3 (0.0-0.2); Baso % (Auto) 0.6 % (0.0-2.0); Eos # (Auto) 0.4 th/mm3 (0.0-0.4); Eos % (Auto) 3.5 % (0.0-4.0); Hematocrit 34.5 % (39.0-51.0); Hemoglobin 12.1 gm/dL (13.0-17.0); Mean Corpuscular HGB Conc 35.2 % (32.0-36.0); Mean Corpuscular Hemoglobin 31.1 pg (27.0-34.0); Mean Corpuscular Volume 88.4 fL (80.0-100.0); Mean Platelet Volume 8.1 fL (7.0-11.0); Mono # (Auto) 1.1 th/mm3 (0.0-0.9); Mono % (Auto) 10.5 % (0.0-8.0); Neut # (Auto) 7.6 th/mm3 (1.8-7.7); Neut % (Auto) 75.4 % (16.0-70.0); Platelet Count 410 th/mm3 (150-450); Red Blood Count 3.91 mil/mm3 (4.50-5.90); Red Cell Distribution Width 15.2 % (11.6-17.2); White Blood Count 10.1 th/mm3 (4.0-11.0)
[2019-01-19 04:55] LABS: INR 1.1 Ratio
[2019-01-19 05:18] LABS: Alanine Aminotransferase 18 U/L (12-78); Albumin 1.7 g/dL (3.4-5.0); Alkaline Phosphatase 104 U/L (45-117); Anion Gap 10 meq/L (5-15); Aspartate Aminotransferase 27 U/L (15-37); Blood Urea Nitrogen 24 mg/dL (7-18); Calcium 7.5 mg/dL (8.5-10.1); Carbon Dioxide 22.5 meq/L (21.0-32.0); Chloride 103 meq/L (98-107); Glomerular Filtration Rate 68 mL/min (>89); Glucose,Random 124 mg/dL (74-106); Magnesium 1.8 mg/dL (1.5-2.5); Phosphorus 2.6 mg/dL (2.5-4.9); Potassium 3.6 meq/L (3.5-5.1); Sodium 135 meq/L (136-145); Total Protein 5.3 g/dL (6.4-8.2); Triglycerides 512 mg/dL (42-150)
[2019-01-19 06:43] LABS: Eosinophils 10 % (0-4); Lymphocytes 3 % (9-44); Metamyelocytes 5 % (0-1); Monocytes 6 % (0-8); Myelocytes 2 % (0-0); Platelet Estimate Normal (Normal); Platelet Morphology Normal (Normal); Tallied Nucleated RBC 1 (0-0)
--- NOTE | 2019-01-19 09:19 | P.PNFP ---
Subjective Interval history: No acute events overnight. NG tube in place, output of 450ml currently on TPN via PICC Rectal tube and bag in place, patient having output. Reports several episodes of diarrhea. States that he is doing well No complaints Denies CP, SOB, fevers, and N/V <Lorraine Jay T - 01/19/19 10:25> Results - Labs Result diagrams: 01/19/19 04:05 01/19/19 04:05 <Pat Blas M - 01/19/19 12:11> Abnormal lab results 01/19/19 01/19/19 01/19/19 Range/Units 04:05 04:05 04:05 RBC 3.91 L (4.50-5.90) mil/mm3 Hgb 12.1 L (13.0-17.0) gm/dL Hct 34.5 L (39.0-51.0) % Neut % (Auto) 75.4 H (16.0-70.0) % [place] % (Auto) 10.5 H (0.0-8.0) % [place] # (Auto) 1.1 H (0.0-0.9) th/mm3 Band Neuts % (Manual) 8 H (0-6) % Lymphocytes % (Manual) 3 L (9-44) % Eosinophils % (Manual) 10 H (0-4) % Metamyelocytes % (Man) 5 H (0-1) % Myelocytes % (Man) 2 H (0-0) % Abs Neuts (Manual) 8.2 H (1.8-7.7) th/mm3 Nucleated RBCs/100 WBC 1 H (0-0) /100 WBC Sodium 135 L (136-145) meq/L BUN 24 H (7-18) mg/dL Estimated GFR 68 L (>89) mL/min POC Glucose (68-110) mg/dl Random Glucose 124 H (74-106) mg/dL Calcium 7.5 L (8.5-10.1) mg/dL Total Protein 5.3 L (6.4-8.2) g/dL Albumin 1.7 L (3.4-5.0) g/dL Triglycerides 512 H (42-150) mg/dL Lipase 2048 H (73-393) U/L 01/19/19 Range/Units 06:27 RBC (4.50-5.90) mil/mm3 Hgb (13.0-17.0) gm/dL Hct (39.0-51.0) % Neut % (Auto) (16.0-70.0) % [place] % (Auto) (0.0-8.0) % [place] # (Auto) (0.0-0.9) th/mm3 Band Neuts % (Manual) (0-6) % Lymphocytes % (Manual) (9-44) % Eosinophils % (Manual) (0-4) % Metamyelocytes % (Man) (0-1) % Myelocytes % (Man) (0-0) % Abs Neuts (Manual) (1.8-7.7) th/mm3 Nucleated RBCs/100 WBC (0-0) /100 WBC Sodium (136-145) meq/L BUN (7-18) mg/dL Estimated GFR (>89) mL/min POC Glucose 167 H (68-110) mg/dl Random Glucose (74-106) mg/dL Calcium (8.5-10.1) mg/dL Total Protein (6.4-8.2) g/dL Albumin (3.4-5.0) g/dL Triglycerides (42-150) mg/dL Lipase (73-393) U/L Short CBC 01/19/19 Range/Units 04:05 WBC 10.1 (4.0-11.0) th/mm3 Hgb 12.1 L (13.0-17.0) gm/dL Hct 34.5 L (39.0-51.0) % Plt Count 410 (150-450) th/mm3 [place] 01/19/19 04:05 Sodium 135 L Potassium 3.6 Chloride 103 Carbon Dioxide 22.5 BUN 24 H Creatinine 1.04 Calcium 7.5 L Liver Function 01/19/19 Range/Units 04:05 Total Bilirubin 0.3 (0.2-1.0) mg/dL AST 27 (15-37) U/L ALT 18 (12-78) U/L Alkaline Phosphatase 104 (45-117) U/L Albumin 1.7 L (3.4-5.0) g/dL <Pat Blas - 01/19/19 12:11> Abnormal lab results 0201/19/19 01/19/19 Range/Units 04:05 04:05 06:27 RBC 3.91 L (4.50-5.90) mil/mm3 Hgb 12.1 L (13.0-17.0) gm/dL Hct 34.5 L (39.0-51.0) % Neut % (Auto) 75.4 H (16.0-70.0) % [place] % (Auto) 10.5 H (0.0-8.0) % [place] # (Auto) 1.1 H (0.0-0.9) th/mm3 Band Neuts % (Manual) 8 H (0-6) % Lymphocytes % (Manual) 3 L (9-44) % Eosinophils % (Manual) 10 H (0-4) % Metamyelocytes % (Man) 5 H (0-1) % Myelocytes % (Man) 2 H (0-0) % Abs Neuts (Manual) 8.2 H (1.8-7.7) th/mm3 Nucleated RBCs/100 WBC 1 H (0-0) /100 WBC Sodium 135 L (136-145) meq/L BUN 24 H (7-18) mg/dL Estimated GFR 68 L (>89) mL/min POC Glucose 167 H (68-110) mg/dl Random Glucose 124 H (74-106) mg/dL Calcium 7.5 L (8.5-10.1) mg/dL Total Protein 5.3 L (6.4-8.2) g/dL Albumin 1.7 L (3.4-5.0) g/dL Triglycerides 512 H (42-150) mg/dL Short CBC 01/19/19 Range/Units 04:05 WBC 10.1 (4.0-11.0) th/mm3 Hgb 12.1 L (13.0-17.0) gm/dL Hct 34.5 L (39.0-51.0) % Plt Count 410 (150-450) th/mm3 BMP 01/19/19 04:05 Sodium 135 L Potassium 3.6 Chloride 103 Carbon Dioxide 22.5 BUN 24 H Creatinine 1.04 Calcium 7.5 L Liver Function 01/19/19 Range/Units 04:05 Total Bilirubin 0.3 (0.2-1.0) mg/dL AST 27 (15-37) U/L ALT 18 (12-78) U/L Alkaline Phosphatase 104 (45-117) U/L Albumin 1.7 L (3.4-5.0) g/dL <Lorraine Jay T - 01/19/19 09:19> Physical Exam Vital signs: Vital Signs 01/18/19 16:00 01/18/19 19:54 01/19/19 00:17 Temperature 97.5 F L 98.9 F 97.5 F L Pulse Rate 99 H 80 99 H Respiratory Rate 20 18 20 Blood Pressure 104/59 L 111/58 L 111/55 L Pulse Oximetry 95 94 L 96 01/19/19 04:00 01/19/19 08:00 Temperature 97.5 F L 98.0 F Pulse Rate 114 H 108 H Respiratory Rate 21 20 Blood Pressure 131/63 113/55 L Pulse Oximetry 95 98 Intake & Output 01/18/19 01/19/19 01/19/19 18:59 06:59 18:59 Intake Total 1850 / 1850 2400 / 2400 Output Total 50 / 50 0 / 0 250 / 250 Balance 1800 / 1800 2400 / 2400 -250 / -250 Weight 68 kg Intake: IV 250 / 250 2400 / 2400 Clinimix E 5%/D20W Inj 2,000 ML 1999 @ 83 mls/hr IV.SIG DAILY@1999 [facility] Rx#:[id number] Intralipid 20% Inj 250 ML @ 31. 250 / 250 250 / 250 25 mls/hr IV.SIG DAILY@1999 [facility] Rx#:[id number] Levaquin 750 mg Premix Inj 150 150 / 150 ML @ 100 mls/hr IV.SIG Q48H [facility] Rx#:[id number] Oral 1600 / 1600 0 / 0 Output: Stool 250 / 250 Gastric Drainage 50 / 50 0 / 0 Right Nare Nasogastric Tube 50 / 50 0 / 0 Other: Bladder Irrigation Fluid - Amount Instilled 3-way Urethral 900 Date of Last Bowel Movement 01/17/19 01/19/19 01/19/19 # Bowel Movements 1 # Incontinent Bowel Movements 2 <Pat Blas - 01/19/19 12:11> Vital Signs 01/18/19 12:00 01/18/19 16:00 01/18/19 19:54 Temperature 98.7 F 97.5 F L 98.9 F Pulse Rate 91 H 99 H 80 Respiratory Rate 20 20 18 Blood Pressure 111/58 L 104/59 L 111/58 L Pulse Oximetry 95 95 94 L 01/19/19 00:17 01/19/19 04:00 01/19/19 08:00 Temperature 97.5 F L 97.5 F L 98.0 F Pulse Rate 99 H 114 H 108 H Respiratory Rate 20 21 20 Blood Pressure 111/55 L 131/63 113/55 L Pulse Oximetry 96 95 95 Intake & Output 01/18/19 01/19/19 01/19/19 18:59 06:59 18:59 Intake Total 1850 / 1850 2400 / 2400 Output Total 50 / 50 0 / 0 Balance 1800 / 1800 2400 / 2400 Weight 68 kg Intake: IV 250 / 250 2400 / 2400 Clinimix E 5%/D20W Inj 2,000 ML 1999 / 1999 @ 83 mls/hr IV.SIG DAILY@1999 [facility] Rx#:[id number] Intralipid 20% Inj 250 ML @ 31. 250 / 250 250 / 250 25 mls/hr IV.SIG DAILY@1999 [facility] Rx#:[id number] Levaquin 750 mg Premix Inj 150 150 / 150 ML @ 100 mls/hr IV.SIG Q48H [facility] Rx#:[id number] Oral 1600 / 1600 0 / 0 Output: Gastric Drainage 50 / 50 0 / 0 Right Nare Nasogastric Tube 50 / 50 0 / 0 Other: Bladder Irrigation Fluid - Amount Instilled 3-way Urethral 900 Date of Last Bowel Movement 01/17/19 01/19/19 # Bowel Movements 1 # Incontinent Bowel Movements 2 <Lorraine Jay T - 01/19/19 09:19> Narrative: General: Elderly male, no acute distress. Eyes: EOMI, anicteric scleral, no conjunctival injection ENT: Atraumatic, MMM, NG tube in place Neck: Trachea midline, no masses Respiratory: normal respiratory effort, CTAB, no wheezes or crackles Cardiovascular: Regular rate and rhythm without murmur, 1+ pedal pulses, no peripheral edema Abdomen: Bowel sounds hypoactive. no guarding or rebound : rectal tube in place Psychiatric: Alert and oriented. Normal affect. <Lorraine Jay T - 01/19/19 10:25> - Urinary Catheter Management 3-way Urethral Cath placed during this visit: no <Pat Blas 01/19/19 12:11> no <Van R2Lorraine Benites 01/19/19 10:25> Reason for continuing: Gross Hematuria <Van R2,Lorraine Benites T 01/19/19 09:19> Indwelling Urethral Catheter Cath placed during this visit: no <Pat Blas 01/19/19 12:11> yes, but has since been removed by the nurse <Van R2Lorraine Benites 01/19/19 10:25> Urethral indwelling: Yes <Van R2,Lorraine Benites T 01/19/19 09:19> Reason for continuing: Gross Hematuria <Van R2,Lorraine Benites T 01/19/19 09:19> Insertion date: 01/09/19 <Van R2,Lorraine Benites T 01/19/19 09:19> Insertion time: 17:35 <Van R2,Lorraine Benites T 01/19/19 09:19> Removal date: 01/09/19 <Van R2,Lorraine Benites T 01/19/19 09:19> Removal time: 17:30 <Van R2,Lorraine Benites 01/19/19 09:19> Assessment and Plan - Assessment (1) Partial bowel obstruction Code(s): K56.600 - Partial intestinal obstruction, unspecified as to cause Status: Acute (2) Pneumonia Code(s): J18.9 - Pneumonia, unspecified organism Status: Acute (3) Complicated urinary tract infection Code(s): N39.0 - Urinary tract infection, site not specified Status: Acute (4) Gross hematuria Code(s): R31.0 - Gross hematuria Status: Resolved (5) Hypertension Code(s): I10 - Essential (primary) hypertension Status: Chronic (6) Prostate cancer Code(s): C61 - Malignant neoplasm of prostate Status: Chronic <Pat Blas 01/19/19 12:11> (1) Partial bowel obstruction Code(s): K56.600 - Partial intestinal obstruction, unspecified as to cause Status: Acute Plan: (2) Pneumonia Code(s): J18.9 - Pneumonia, unspecified organism Status: Acute Plan: (3) Complicated urinary tract infection Code(s): N39.0 - Urinary tract infection, site not specified Status: Acute Plan: (4) Gross hematuria Code(s): R31.0 - Gross hematuria Status: Resolved Plan: (5) Hypertension Code(s): I10 - Essential (primary) hypertension Status: Chronic Plan: (6) Prostate cancer Code(s): C61 - Malignant neoplasm of prostate Status: Chronic Plan: <Lorraine Jay T - 01/19/19 10:16> - Assessment and Plan He is an 83-year-old male with a history of prostate cancer admitted with hematuria found to have a partial small bowel obstruction. Currently medically managing, however Dr. Crowell is following. 1. Partial small bowel obstruction / ileus: Had multiple days with no bowel movements and worsening distention and nausea/vomiting on 01/11. KUB at that time showed an abnormal bowel gas pattern. He was put NPO, NG tube to suction, IV fluids. KUB on 01/14 showed significant decrease in the prominence of bowel loops. General surgery consulted and recommends continued medical management at this time. Continued recommendations are appreciated. Improving, had several BMs last night NG tube with less output today Continue TPN -continue Reglan 5mg IV q12h Lipase is now downtrending. GI believes this to be secondary to SBO. Sepsis: Resolved. Blood cultures negative to date, lactic acid normalized, no current leukocytosis. Afebrile. Infectious disease following On Levaquin (started 01/04/19) (Zyvox discontinued) 2. Complicated UTI with gross hematuria: Culture positive for Pseudomonas. Originally came in with hematuria, has had some transient hematuria yesterday. Pyridium for pain control Flomax, hold oxybutynin H&H stable, will continue to follow Blood cultures negative to date Antibiotics as above 3. Pneumonia: Chest x-ray showing bilateral infiltrates on 01/11 Respiratory status stable Antibiotics as above Incentive spirometry 4. Hypertension: Continue home medication metoprolol 5. Hyperlipidemia: Continue home medication pravastatin 6. Prostate cancer with bone metastases We will follow-up with urologist at the [facility] for management as outpatient -Patient was taking Xtandi 40mg daily, has not been on it since being at the hospital. Medication not available in pharmacy. Fluids: On TPN Electrolytes: monitor and replete as needed Nutrition: On TPN GI prophylaxis: Daily IV Protonix (on p.o. Protonix at home) VTE prophylaxis: b/l SCDs (pharmacologic prophylaxis contraindicated due to hematuria) Disposition: Significant deconditioning, daily PT, they recommend PT at rehab <Obinna RangelLorraine Benites T - 01/19/19 10:25> - Attending Attestation The exam, history, and the medical decision-making described in the above note were completed with the assistance of the resident physician. I reviewed and agree with the findings presented. I attest that I had a [id number] encounter with the patient on the same day, and personally performed and documented my assessment and findings in the medical record. wonderful news that his bowels are finally producing something! He is still having quite a bit of NG tube drainage so this cannot be clamped at this time but having the bowels begin to move is the best thing that could happen now. will think about rehab when he is ready to leave the hospital as he is in a weakened state. <Pat Blas - 01/19/19 12:11>
[2019-01-19] MEDS: Heparin Central Flush 100 UNIT/ML 5 ML Vial IV.FLUSH SCH (09:41)
[2019-01-19] MEDS: Lactobacillus Acidophilus/L. Spores Tablet PO SCH ×2 (09:42→20:36)
[2019-01-19] MEDS: Senna/Docusate Sodium 8.6/50 MG Tablet PO SCH ×2 (09:42→20:36)
[2019-01-19] MEDS: Metoprolol Tartrate 25 MG Tablet PO SCH ×2 (09:42→20:38)
[2019-01-19] MEDS: XTANDI 160 MG PO SCH (09:43)
--- NOTE | 2019-01-19 11:18 | P.PNGS ---
Subjective Interval history: DAILY PROGRESS NOTE FOR SURGICAL ATTENDING, DR. DEYANIRA LIRIANO Resting in bed No with flatus and BM Physical Exam Vital signs: Vital Signs 01/18/19 12:00 01/18/19 16:00 01/18/19 19:54 Temperature 98.7 F 97.5 F L 98.9 F Pulse Rate 91 H 99 H 80 Respiratory Rate 20 20 18 Blood Pressure 111/58 L 104/59 L 111/58 L Pulse Oximetry 95 95 94 L 01/19/19 00:17 01/19/19 04:00 01/19/19 08:00 Temperature 97.5 F L 97.5 F L 98.0 F Pulse Rate 99 H 114 H 108 H Respiratory Rate 20 21 20 Blood Pressure 111/55 L 131/63 113/55 L Pulse Oximetry 96 95 98 Intake & Output 01/18/19 01/19/19 01/19/19 18:59 06:59 18:59 Intake Total 1850 / 1850 2400 / 2400 Output Total 50 / 50 0 / 0 250 / 250 Balance 1800 / 1800 2400 / 2400 -250 / -250 Weight 68 kg Intake: IV 250 / 250 2400 / 2400 Clinimix E 5%/D20W Inj 2,000 ML 1999 @ 83 mls/hr IV.SIG DAILY@1999 [facility] Rx#:[id number] Intralipid 20% Inj 250 ML @ 31. 250 / 250 250 / 250 25 mls/hr IV.SIG DAILY@1999 [facility] Rx#:[id number] Levaquin 750 mg Premix Inj 150 150 / 150 ML @ 100 mls/hr IV.SIG Q48H [facility] Rx#:[id number] Oral 1600 / 1600 0 / 0 Output: Stool 250 / 250 Gastric Drainage 50 / 50 0 / 0 Right Nare Nasogastric Tube 50 / 50 0 / 0 Other: Bladder Irrigation Fluid - Amount Instilled 3-way Urethral 900 Date of Last Bowel Movement 01/17/19 01/19/19 01/19/19 # Bowel Movements 1 # Incontinent Bowel Movements 2 Narrative: Alert and awake Abd: soft; minimally tender to palpation NGT in place---clamped - Urinary Catheter Management Indwelling Urethral Catheter Cath placed during this visit: yes, but has since been removed by the nurse Urethral indwelling: Yes Reason for continuing: Gross Hematuria Insertion date: 01/09/19 Insertion time: 17:35 Removal date: 01/09/19 Removal time: 17:30 3-way Urethral Cath placed during this visit: no Reason for continuing: Gross Hematuria Results - Labs 01/19/19 04:05 01/19/19 04:05 Laboratory Results - last 24 hr 01/19/19 01/19/19 01/19/19 04:05 04:05 04:05 WBC 10.1 RBC 3.91 L Hgb 12.1 L Hct 34.5 L MCV 88.4 MCH 31.1 MCHC 35.2 RDW 15.2 Plt Count 410 MPV 8.1 Prelim Diff (Auto) Slide review pending Neut % (Auto) 75.4 H Lymph % (Auto) 10.0 [place] % (Auto) 10.5 H Eos % (Auto) 3.5 Baso % (Auto) 0.6 Neut # (Auto) 7.6 Lymph # (Auto) 1.0 [place] # (Auto) 1.1 H Eos # (Auto) 0.4 Baso # (Auto) 0.1 WBC Differential Manual diff final Seg Neuts % (Manual) 66 Band Neuts % (Manual) 8 H Lymphocytes % (Manual) 3 L Monocytes % (Manual) 6 Eosinophils % (Manual) 10 H Metamyelocytes % (Man) 5 H Myelocytes % (Man) 2 H Abs Neuts (Manual) 8.2 H Nucleated RBCs/100 WBC 1 H Differential Comment . Platelet Estimate Normal Platelet Morphology Normal PT 11.0 INR 1.1 Sodium 135 L Potassium 3.6 Chloride 103 Carbon Dioxide 22.5 Anion Gap 10 BUN 24 H Creatinine 1.04 Estimated GFR 68 L POC Glucose Random Glucose 124 H Calcium 7.5 L Phosphorus 2.6 Magnesium 1.8 Total Bilirubin 0.3 AST 27 ALT 18 Alkaline Phosphatase 104 Total Protein 5.3 L Albumin 1.7 L Triglycerides 512 H Lipase 01/19/19 01/19/19 01/19/19 04:05 04:13 06:27 WBC RBC Hgb Hct MCV MCH MCHC RDW Plt Count MPV Prelim Diff (Auto) Neut % (Auto) Lymph % (Auto) [place] % (Auto) Eos % (Auto) Baso % (Auto) Neut # (Auto) Lymph # (Auto) [place] # (Auto) Eos # (Auto) Baso # (Auto) WBC Differential Seg Neuts % (Manual) Band Neuts % (Manual) Lymphocytes % (Manual) Monocytes % (Manual) Eosinophils % (Manual) Metamyelocytes % (Man) Myelocytes % (Man) Abs Neuts (Manual) Nucleated RBCs/100 WBC Differential Comment Platelet Estimate Platelet Morphology PT INR Sodium Potassium Chloride Carbon Dioxide Anion Gap BUN Creatinine Estimated GFR POC Glucose 108 167 H Random Glucose Calcium Phosphorus Magnesium Total Bilirubin AST ALT Alkaline Phosphatase Total Protein Albumin Triglycerides Lipase 2048 H - Imaging Imaging: ITS Impressions Liver Ultrasound 01/07/19 00:00 CONCLUSION: 1. Minimal increase in echogenicity of the liver without mass or hydronephrosis. 2. There is no ductal dilatation Chest X-Ray 01/11/19 00:00 CONCLUSION: Mild bilateral infiltrates Abdomen/Pelvis CT 01/17/19 00:00 CONCLUSION: 1. Persistent dilation of small bowel loops with a discrete transition in the region of the ileum concerning for at least a partial small bowel obstruction. The degree of small bowel distention is relatively stable. 2. Postsurgical changes with findings of prior prostatectomy. Penile prostheses but the reservoir appears to be decompressed. 3. Extensive sclerosis and cortical thickening predominantly in the right ilium and acetabulum. Some sclerosis in the left ilium, pubic ramus and lower lumbar spine. 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 4. Stable small bilateral pleural effusions with concomitant atelectatic changes. Mild abdominal ascites around the hepatic convexity is slightly increased. 5. Old granulomatous disease. Abdomen X-Ray 01/17/19 07:00 CONCLUSION: Moderate severity small bowel distention without significant change. Assessment and Plan - Assessment (1) Acute hemorrhagic cystitis Code(s): N30.01 - Acute cystitis with hematuria Status: Acute (2) UTI (urinary tract infection) Code(s): N39.0 - Urinary tract infection, site not specified Status: Acute (3) Complicated urinary tract infection Code(s): N39.0 - Urinary tract infection, site not specified Status: Acute (4) Ileus Code(s): K56.7 - Ileus, unspecified Status: Acute (5) Elevated amylase and lipase Code(s): R74.8 - Abnormal levels of other serum enzymes Status: Acute - Plan 83 year old male with recurrent prostate cancer; UTI; pneumonia; radiological findings of SBO -NGT in place; output minimal now -Clamp NGT -Start sips of clear liquids -Continue TPN -Monitor electrolytes -ID following -Ileus is resolving as UTI is resolving -Will continue non operative treatment - Attending Attestation NOTE FOR SURGICAL ATTENDING, DR. DEYANIRA LIRIANO I agree with above assessment and plan. The exam, history, and the medical decision-making described in the above note were completed with the assistance of the mid-level provider. I reviewed and agree with the findings presented. I attest that I had a [id number] encounter with the patient on the same day, and personally performed and documented my assessment and findings in the medical record. The following services were provided during this hospital visit: Chart data review, vital sign assessments/reviewing monitor data Review of consultations notes if present. Medication orders/review and/or management Ordering and/or reviewing lab tests Ordering and/or interpreting/reviewing x-rays and/or diagnostic studies Care of the patient and discussion of the patient with the care team Documentation time To help prompt me to consider important information that might be impacting today's encounter and assessment, Information from prior notes written by myself or my colleagues may have been "brought forward/copy and pasted" into today's note.
[2019-01-19] MEDS: Pantoprazole Inj 40 MG Vial IV.PUSH SCH (13:06)
[2019-01-19] MEDS: ELECTROLYTES IV.SIG SCH (20:35)
[2019-01-19] MEDS: [UNRECOGNIZED DRUG - OTHER] IV.SIG SCH (20:35)
[2019-01-19] MEDS: Mirtazapine 15 MG Tablet PO SCH (20:37)
--- NOTE | 2019-01-20 09:51 | P.PNFP ---
Subjective Interval history: No acute events overnight. NG tube was D/C Patient having good BMs, rectal tube in place Galvez catheter in place VSS patient will start clear liquids and weaned off TPN No complaints this morning <Obinna RangelLorraine T - 01/20/19 14:09> Results - Labs Result diagrams: 01/22/19 12:32 01/21/19 07:20 <Pat Blas - 01/22/19 16:22> Abnormal lab results 01/21/19 01/21/19 01/22/19 Range/Units 11:45 22:20 07:41 RBC (4.50-5.90) mil/mm3 Hgb (13.0-17.0) gm/dL Hct (39.0-51.0) % MCV (80.0-100.0) fL MCHC (32.0-36.0) % RDW (11.6-17.2) % [place] % (Auto) (0.0-8.0) % Eos % (Auto) (0.0-4.0) % Lymph # (Auto) (1.0-4.8) th/mm3 [place] # (Auto) (0.0-0.9) th/mm3 POC Glucose 120 H 158 H (68-110) mg/dl Stool C.difficile Ag Positive H (Negative) Stool C.difficile Toxin Positive H (Negative) 01/22/19 01/22/19 Range/Units 11:58 12:32 RBC 2.81 L (4.50-5.90) mil/mm3 Hgb 8.7 L (13.0-17.0) gm/dL Hct 28.9 L (39.0-51.0) % MCV 102.7 H D (80.0-100.0) fL MCHC 30.0 L (32.0-36.0) % RDW 17.5 H (11.6-17.2) % [place] % (Auto) 14.4 H (0.0-8.0) % Eos % (Auto) 5.6 H (0.0-4.0) % Lymph # (Auto) 0.8 L (1.0-4.8) th/mm3 [place] # (Auto) 1.0 H (0.0-0.9) th/mm3 POC Glucose 152 H (68-110) mg/dl Stool C.difficile Ag (Negative) Stool C.difficile Toxin (Negative) Short CBC 01/22/19 Range/Units 12:32 WBC 6.9 (4.0-11.0) th/mm3 Hgb 8.7 L (13.0-17.0) gm/dL Hct 28.9 L (39.0-51.0) % Plt Count 353 (150-450) th/mm3 <Pat Blas - 01/22/19 16:22> Abnormal lab results 01/19/19 01/19/19 01/20/19 Range/Units 04:05 12:31 00:25 POC Glucose 173 H 126 H (68-110) mg/dl Lipase 2048 H (73-393) U/L 01/20/19 Range/Units 08:07 POC Glucose 160 H (68-110) mg/dl Lipase (73-393) U/L <Obinna RangelNeryemerita Benites T - 01/20/19 09:51> Physical Exam Vital signs: Vital Signs 01/21/19 20:00 01/22/19 00:00 01/22/19 04:00 Temperature 97.5 F L 97.9 F 98.0 F Pulse Rate 110 H 103 H 106 H Respiratory Rate 20 20 20 Blood Pressure 107/57 L 101/56 L 141/63 H Pulse Oximetry 92 L 96 96 01/22/19 08:00 01/22/19 12:00 Temperature 97.8 F 98.1 F Pulse Rate 104 H 103 H Respiratory Rate 18 18 Blood Pressure 111/54 L 113/59 L Pulse Oximetry 95 95 Intake & Output 01/21/19 01/22/19 01/22/19 18:59 06:59 18:59 Intake Total 800 / 800 2691 / 2691 Output Total 1600 / 1600 3200 / 3200 Balance -800 / -800 -509 / -509 Intake: IV 400 / 400 247 / 2471 Clinimix E 5%/D20W Inj 2,000 ML 2470 / 2471 @ 40 mls/hr IV.SIG DAILY@1999 [facility] Rx#:[id number] Intralipid 20% Inj 250 ML @ 31. 250 / 250 25 mls/hr IV.SIG DAILY@1999 [facility] Rx#:[id number] Levaquin 750 mg Premix Inj 150 150 / 150 ML @ 100 mls/hr IV.SIG Q24H [facility] Rx#:[id number] Oral 400 / 400 220 / 220 Output: Urine 1999 Urine Amount (Catheter) 1600 / 1600 1200 / 1200 3-way Urethral 1600 / 1600 1200 / 1200 Other: Bladder Irrigation Fluid - Amount Instilled 3-way Urethral 1,200 1,500 Bladder Irrigation Fluid - Amount Drained 3-way Urethral 1,600 Date of Last Bowel Movement 01/21/19 01/21/19 01/21/19 # Incontinent Bowel Movements 1 <Pat Blas M - 01/22/19 16:22> Vital Signs 01/19/19 12:00 01/19/19 16:00 01/19/19 20:00 Temperature 97.9 F 98.1 F 98.2 F Pulse Rate 108 H 106 H 110 H Respiratory Rate 18 20 17 Blood Pressure 117/60 112/61 116/58 L Pulse Oximetry 95 97 96 01/19/19 20:41 01/20/19 00:00 01/20/19 03:53 Temperature 98.3 F 98 F Pulse Rate 105 H 108 H Respiratory Rate 17 17 Blood Pressure 126/65 155/70 H Pulse Oximetry 96 97 98 01/20/19 08:00 Temperature 98.7 F Pulse Rate 104 H Respiratory Rate 20 Blood Pressure 108/55 L Pulse Oximetry 95 Intake & Output 01/19/19 01/20/19 01/20/19 18:59 06:59 18:59 Intake Total 800 / 800 2370 / 2370 Output Total 2800 / 2800 250 / 250 Balance -1999 / 2120 / 2120 Weight 67.9 kg Intake: IV 2250 / 2250 Clinimix E 5%/D20W Inj 2,000 ML 1999 @ 83 mls/hr IV.SIG DAILY@1999 [facility] Rx#:[id number] Intralipid 20% Inj 250 ML @ 31. 250 / 250 25 mls/hr IV.SIG DAILY@1999 [facility] Rx#:[id number] Oral 120 / 120 Tube Irrigant 120 / 120 Other 680 / 680 Output: Urine 1999 Stool 800 / 800 250 / 250 Gastric Drainage 0 / 0 Right Nare Nasogastric Tube 0 / 0 Other: Bladder Irrigation Fluid - Amount Instilled 3-way Urethral 300 Bladder Irrigation Fluid - Amount Drained 3-way Urethral 680 1,000 Date of Last Bowel Movement 01/19/19 01/20/19 <Van R2JayroLorraine Benites 01/20/19 09:51> Narrative: General: Elderly male, no acute distress. Eyes: EOMI, anicteric scleral, no conjunctival injection ENT: Atraumatic, MMM Neck: Trachea midline, no masses Respiratory: normal respiratory effort, CTAB, no wheezes or crackles Cardiovascular: Regular rate and rhythm without murmur, 1+ pedal pulses, no peripheral edema Abdomen: Bowel sounds hypoactive. no guarding or rebound : rectal tube in place, Galvez catheter in place Psychiatric: Alert and oriented. Normal affect. <Van ClaireLorraine Benites 01/20/19 14:09> - Urinary Catheter Management 3-way Urethral Cath placed during this visit: no <Pat Blas 01/22/19 16:22> no <Van ClaireLorraine Benites 01/20/19 14:09> Reason for continuing: Gross Hematuria <Van R2,Lorraine Benites 01/20/19 09:51> Indwelling Urethral Catheter Cath placed during this visit: no <Pat Blas 01/22/19 16:22> yes, but has since been removed by the nurse <Obinna R2Lorraine Benites 01/20/19 14:09> Urethral indwelling: Yes <Van R2Lorraine Benites 01/20/19 09:51> Reason for continuing: Gross Hematuria <Van R2Lorraine Benites T 01/20/19 09:51> Insertion date: 01/09/19 <Van R2,Lorraine Benites T 01/20/19 09:51> Insertion time: 17:35 <Van R2,Lorraine Benites T 01/20/19 09:51> Removal date: 01/09/19 <Van R2,Lorraine Benites T 01/20/19 09:51> Removal time: 17:30 <Van R2,Lorraine Benites T 01/20/19 09:51> Assessment and Plan - Assessment (1) Partial bowel obstruction Code(s): K56.600 - Partial intestinal obstruction, unspecified as to cause Status: Acute (2) Pneumonia Code(s): J18.9 - Pneumonia, unspecified organism Status: Acute (3) Complicated urinary tract infection Code(s): N39.0 - Urinary tract infection, site not specified Status: Acute (4) Gross hematuria Code(s): R31.0 - Gross hematuria Status: Resolved (5) Hypertension Code(s): I10 - Essential (primary) hypertension Status: Chronic (6) Prostate cancer Code(s): C61 - Malignant neoplasm of prostate Status: Chronic <Pat Blas - 01/22/19 16:22> (1) Partial bowel obstruction Code(s): K56.600 - Partial intestinal obstruction, unspecified as to cause Status: Acute Plan: (2) Pneumonia Code(s): J18.9 - Pneumonia, unspecified organism Status: Acute Plan: (3) Complicated urinary tract infection Code(s): N39.0 - Urinary tract infection, site not specified Status: Acute Plan: (4) Gross hematuria Code(s): R31.0 - Gross hematuria Status: Resolved Plan: (5) Hypertension Code(s): I10 - Essential (primary) hypertension Status: Chronic Plan: (6) Prostate cancer Code(s): C61 - Malignant neoplasm of prostate Status: Chronic Plan: <Lorraine Jay - 01/20/19 14:02> - Assessment and Plan He is an 83-year-old male with a history of prostate cancer admitted with hematuria found to have a partial small bowel obstruction. Currently medically managing, however Dr. Crowell is following. 1. Partial small bowel obstruction / ileus: Had multiple days with no bowel movements and worsening distention and nausea/vomiting on 01/11. KUB at that time showed an abnormal bowel gas pattern. He was put NPO, NG tube to suction, IV fluids. KUB on 01/14 showed significant decrease in the prominence of bowel loops. General surgery consulted and recommends continued medical management at this time. Continued recommendations are appreciated. Improving, had several BMs last night D/C NG tube Continue TPN, transition to clear liquids as tolerated -continue Reglan 5mg IV q12h Lipase is now downtrending. GI believes this to be secondary to SBO. Sepsis: Resolved. Blood cultures negative to date, lactic acid normalized, no current leukocytosis. Afebrile. Infectious disease following On Levaquin (started 2/5/19) (Zyvox discontinued) 2. Complicated UTI with gross hematuria: Culture positive for Pseudomonas. Originally came in with hematuria, has had some transient hematuria yesterday. Pyridium for pain control Flomax, hold oxybutynin H&H stable, will continue to follow Blood cultures negative to date Antibiotics as above 3. Pneumonia: Chest x-ray showing bilateral infiltrates on 01/11 Respiratory status stable Continue Levaquin (01/04/19- ) Incentive spirometry -Duoneb q6h PRN 4. Hypertension: Continue home medication metoprolol 5. Hyperlipidemia: Continue home medication pravastatin 6. Prostate cancer with bone metastases We will follow-up with urologist at the [facility] for management as outpatient -Patient was taking Xtandi 40mg daily, brought in medicine Fluids: On TPN Electrolytes: monitor and replete as needed Nutrition: On TPN, transition diet to clear liquids, will advance as tolerated GI prophylaxis: Daily IV Protonix (on p.o. Protonix at home) VTE prophylaxis: b/l SCDs (pharmacologic prophylaxis contraindicated due to hematuria) Disposition: Significant deconditioning, daily PT, they recommend PT at rehab, refuses, she would like home health PT and home health nursing <Lorraine Jay - 01/20/19 14:09> - Attending Attestation The exam, history, and the medical decision-making described in the above note were completed with the assistance of the resident physician. I reviewed and agree with the findings presented. I attest that I had a [id number] encounter with the patient on the same day, and personally performed and documented my assessment and findings in the medical record. he is improving with his ileus and able to take po <Pat Blas - 01/22/19 16:22>
--- NOTE | 2019-01-20 10:23 | P.PNGS ---
Subjective Patient reports: feels better, tolerating liquids well, flatus, bowel movement, diarrhea Interval history: DAILY PROGRESS NOTE FOR SURGICAL ATTENDING, DR. DEYANIRA LIRIANO Resting in bed Had multiple BMs Tolerating clear liquids Physical Exam Vital signs: Vital Signs 01/19/19 12:00 01/19/19 16:00 01/19/19 20:00 Temperature 97.9 F 98.1 F 98.2 F Pulse Rate 108 H 106 H 110 H Respiratory Rate 18 20 17 Blood Pressure 117/60 112/61 116/58 L Pulse Oximetry 95 97 96 01/19/19 20:41 01/20/19 00:00 01/20/19 03:53 Temperature 98.3 F 98 F Pulse Rate 105 H 108 H Respiratory Rate 17 17 Blood Pressure 126/65 155/70 H Pulse Oximetry 96 97 98 01/20/19 08:00 Temperature 98.7 F Pulse Rate 104 H Respiratory Rate 20 Blood Pressure 108/55 L Pulse Oximetry 95 Intake & Output 01/19/19 01/20/19 01/20/19 18:59 06:59 18:59 Intake Total 800 / 800 2370 / 2370 Output Total 2800 / 2800 250 / 250 Balance -1999 2120 / 2120 Weight 67.9 kg Intake: IV 2250 / 2250 Clinimix E 5%/D20W Inj 2,000 ML 1999 @ 83 mls/hr IV.SIG DAILY@1999 [facility] Rx#:[id number] Intralipid 20% Inj 250 ML @ 31. 250 / 250 25 mls/hr IV.SIG DAILY@1999 [facility] Rx#:[id number] Oral 120 / 120 Tube Irrigant 120 / 120 Other 680 / 680 Output: Urine 1999 Stool 800 / 800 250 / 250 Gastric Drainage 0 / 0 Right Nare Nasogastric Tube 0 / 0 Other: Bladder Irrigation Fluid - Amount Instilled 3-way Urethral 300 Bladder Irrigation Fluid - Amount Drained 3-way Urethral 680 1,000 Date of Last Bowel Movement 01/19/19 01/20/19 Narrative: Resting in bed Abd: soft; non tender non distended - Urinary Catheter Management Indwelling Urethral Catheter Cath placed during this visit: yes, but has since been removed by the nurse Urethral indwelling: Yes Reason for continuing: Gross Hematuria Insertion date: 01/09/19 Insertion time: 17:35 Removal date: 01/09/19 Removal time: 17:30 3-way Urethral Cath placed during this visit: no Reason for continuing: Gross Hematuria Results - Labs 01/19/19 04:05 01/19/19 04:05 Laboratory Results - last 24 hr 01/19/19 01/19/19 01/20/19 04:05 12:31 00:25 POC Glucose 173 H 126 H Lipase 2048 H 01/20/19 08:07 POC Glucose 160 H Lipase - Imaging Imaging: ITS Impressions Liver Ultrasound 01/07/19 00:00 CONCLUSION: 1. Minimal increase in echogenicity of the liver without mass or hydronephrosis. 2. There is no ductal dilatation Chest X-Ray 01/11/19 00:00 CONCLUSION: Mild bilateral infiltrates Abdomen/Pelvis CT 01/17/19 00:00 CONCLUSION: 1. Persistent dilation of small bowel loops with a discrete transition in the region of the ileum concerning for at least a partial small bowel obstruction. The degree of small bowel distention is relatively stable. 2. Postsurgical changes with findings of prior prostatectomy. Penile prostheses but the reservoir appears to be decompressed. 3. Extensive sclerosis and cortical thickening predominantly in the right ilium and acetabulum. Some sclerosis in the left ilium, pubic ramus and lower lumbar spine. 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 4. Stable small bilateral pleural effusions with concomitant atelectatic changes. Mild abdominal ascites around the hepatic convexity is slightly increased. 5. Old granulomatous disease. Abdomen X-Ray 01/17/19 07:00 CONCLUSION: Moderate severity small bowel distention without significant change. Assessment and Plan - Assessment (1) Acute hemorrhagic cystitis Code(s): N30.01 - Acute cystitis with hematuria Status: Acute (2) UTI (urinary tract infection) Code(s): N39.0 - Urinary tract infection, site not specified Status: Acute (3) Complicated urinary tract infection Code(s): N39.0 - Urinary tract infection, site not specified Status: Acute (4) Elevated amylase and lipase Code(s): R74.8 - Abnormal levels of other serum enzymes Status: Acute - Plan 83 year old male with recurrent prostate cancer; UTI; pneumonia; radiological findings of SBO -Minimal gastric residuals -DC NGT -Advance to full liquids -Continue TPN---as his diet is advanced will be able to wean TPN off -Monitor electrolytes -ID following -Ileus is resolving as UTI is resolving -Will continue non operative treatment - Attending Attestation NOTE FOR SURGICAL ATTENDING, DR. DEYANIRA LIRIANO Patient sitting up in bed NG tube removed Tolerating liquids Positive flatus and bowel movements. Resolving ileus Wean TPN Increase ambulation and diet as tolerated I agree with above assessment and plan. The exam, history, and the medical decision-making described in the above note were completed with the assistance of the mid-level provider. I reviewed and agree with the findings presented. I attest that I had a [id number] encounter with the patient on the same day, and personally performed and documented my assessment and findings in the medical record. The following services were provided during this hospital visit: Chart data review, vital sign assessments/reviewing monitor data Review of consultations notes if present. Medication orders/review and/or management Ordering and/or reviewing lab tests Ordering and/or interpreting/reviewing x-rays and/or diagnostic studies Care of the patient and discussion of the patient with the care team Documentation time To help prompt me to consider important information that might be impacting today's encounter and assessment, Information from prior notes written by myself or my colleagues may have been "brought forward/copy and pasted" into today's note.
[2019-01-20] MEDS: Metoprolol Tartrate 25 MG Tablet PO SCH ×2 (11:11→22:01)
[2019-01-20] MEDS: Senna/Docusate Sodium 8.6/50 MG Tablet PO SCH ×2 (11:11→22:02)
[2019-01-20] MEDS: Lactobacillus Acidophilus/L. Spores Tablet PO SCH ×2 (11:11→22:02)
[2019-01-20] MEDS: Heparin Central Flush 100 UNIT/ML 5 ML Vial IV.FLUSH SCH (11:12)
[2019-01-20] MEDS: Pantoprazole Inj 40 MG Vial IV.PUSH SCH (13:45)
[2019-01-20] MEDS: ELECTROLYTES IV.SIG SCH (22:01)
[2019-01-20] MEDS: [UNRECOGNIZED DRUG - OTHER] IV.SIG SCH (22:01)
[2019-01-20] MEDS: Mirtazapine 15 MG Tablet PO SCH (22:02)
[2019-01-21] MEDS: Heparin Central Flush 100 UNIT/ML 5 ML Vial IV.FLUSH SCH (09:17)
[2019-01-21] MEDS: Lactobacillus Acidophilus/L. Spores Tablet PO SCH ×2 (09:18→21:19)
[2019-01-21] MEDS: Metoprolol Tartrate 25 MG Tablet PO SCH ×2 (09:18→21:20)
[2019-01-21] MEDS: Senna/Docusate Sodium 8.6/50 MG Tablet PO SCH ×2 (09:18→21:20)
[2019-01-21] MEDS: XTANDI 40 MG PO SCH (09:18)
[2019-01-21 09:42] LABS: Albumin 1.6 g/dL (3.4-5.0); Anion Gap 10 meq/L (5-15); Aspartate Aminotransferase 18 U/L (15-37); Blood Urea Nitrogen 21 mg/dL (7-18); Calcium 7.7 mg/dL (8.5-10.1); Chloride 104 meq/L (98-107); Glomerular Filtration Rate 79 mL/min (>89); Glucose,Random 95 mg/dL (74-106); Magnesium 1.9 mg/dL (1.5-2.5); Potassium 3.4 meq/L (3.5-5.1); Sodium 135 meq/L (136-145)
[2019-01-21 09:43] LABS: Alanine Aminotransferase 11 U/L (12-78); Alkaline Phosphatase 87 U/L (45-117); Phosphorus 1.9 mg/dL (2.5-4.9); Total Protein 5.4 g/dL (6.4-8.2)
--- NOTE | 2019-01-21 10:34 | P.PNFP ---
Subjective Interval history: No acute events overnight Continue diarrhea Continue blood-tinged urine He is tolerating small amounts of full liquids, did have an episode of emesis drinking yesterday. No current nausea He is having some difficulty swallowing his pills this morning <Kayode GargZhao Elizabeth - 01/21/19 11:10> Results - Labs Result diagrams: 01/22/19 12:32 01/21/19 07:20 <Pat Blas - 01/22/19 16:24> Abnormal lab results 01/21/19 01/21/19 01/22/19 Range/Units 11:45 22:20 07:41 RBC (4.50-5.90) mil/mm3 Hgb (13.0-17.0) gm/dL Hct (39.0-51.0) % MCV (80.0-100.0) fL MCHC (32.0-36.0) % RDW (11.6-17.2) % [place] % (Auto) (0.0-8.0) % Eos % (Auto) (0.0-4.0) % Lymph # (Auto) (1.0-4.8) th/mm3 [place] # (Auto) (0.0-0.9) th/mm3 POC Glucose 120 H 158 H (68-110) mg/dl Stool C.difficile Ag Positive H (Negative) Stool C.difficile Toxin Positive H (Negative) 01/22/19 01/22/19 Range/Units 11:58 12:32 RBC 2.81 L (4.50-5.90) mil/mm3 Hgb 8.7 L (13.0-17.0) gm/dL Hct 28.9 L (39.0-51.0) % MCV 102.7 H D (80.0-100.0) fL MCHC 30.0 L (32.0-36.0) % RDW 17.5 H (11.6-17.2) % [place] % (Auto) 14.4 H (0.0-8.0) % Eos % (Auto) 5.6 H (0.0-4.0) % Lymph # (Auto) 0.8 L (1.0-4.8) th/mm3 [place] # (Auto) 1.0 H (0.0-0.9) th/mm3 POC Glucose 152 H (68-110) mg/dl Stool C.difficile Ag (Negative) Stool C.difficile Toxin (Negative) Short CBC 01/22/19 Range/Units 12:32 WBC 6.9 (4.0-11.0) th/mm3 Hgb 8.7 L (13.0-17.0) gm/dL Hct 28.9 L (39.0-51.0) % Plt Count 353 (150-450) th/mm3 <Glendale HeightsPat Claribel - 01/22/19 16:24> Abnormal lab results 01/20/19 01/20/19 01/20/19 Range/Units 13:16 17:28 20:53 Sodium (136-145) meq/L Potassium (3.5-5.1) meq/L BUN (7-18) mg/dL Estimated GFR (>89) mL/min POC Glucose 138 H 139 H 114 H (68-110) mg/dl Calcium (8.5-10.1) mg/dL Phosphorus (2.5-4.9) mg/dL Total Bilirubin (0.2-1.0) mg/dL ALT (12-78) U/L Total Protein (6.4-8.2) g/dL Albumin (3.4-5.0) g/dL 01/21/19 Range/Units 07:20 Sodium 135 L (136-145) meq/L Potassium 3.4 L (3.5-5.1) meq/L BUN 21 H (7-18) mg/dL Estimated GFR 79 L (>89) mL/min POC Glucose (68-110) mg/dl Calcium 7.7 L (8.5-10.1) mg/dL Phosphorus 1.9 L (2.5-4.9) mg/dL Total Bilirubin 0.1 L (0.2-1.0) mg/dL ALT 11 L (12-78) U/L Total Protein 5.4 L (6.4-8.2) g/dL Albumin 1.6 L (3.4-5.0) g/dL BMP 01/21/19 07:20 Sodium 135 L Potassium 3.4 L Chloride 104 Carbon Dioxide 21.0 BUN 21 H Creatinine 0.91 Calcium 7.7 L Liver Function 01/21/19 Range/Units 07:20 Total Bilirubin 0.1 L (0.2-1.0) mg/dL AST 18 (15-37) U/L ALT 11 L (12-78) U/L Alkaline Phosphatase 87 (45-117) U/L Albumin 1.6 L (3.4-5.0) g/dL <Zhao Brian - 01/21/19 10:34> Physical Exam Vital signs: Vital Signs 01/21/19 20:00 01/22/19 00:00 01/22/19 04:00 Temperature 97.5 F L 97.9 F 98.0 F Pulse Rate 110 H 103 H 106 H Respiratory Rate 20 20 20 Blood Pressure 107/57 L 101/56 L 141/63 H Pulse Oximetry 92 L 96 96 01/22/19 08:00 01/22/19 12:00 Temperature 97.8 F 98.1 F Pulse Rate 104 H 103 H Respiratory Rate 18 18 Blood Pressure 111/54 L 113/59 L Pulse Oximetry 95 95 Intake & Output 01/21/19 01/22/19 01/22/19 18:59 06:59 18:59 Intake Total 800 / 800 2691 / 2691 Output Total 1600 / 1600 3200 / 3200 Balance -800 / -800 -509 / -509 Intake: IV 400 / 400 2471 / 2471 Clinimix E 5%/D20W Inj 2,000 ML 2471 / 2471 @ 40 mls/hr IV.SIG DAILY@1999 [facility] Rx#:[id number] Intralipid 20% Inj 250 ML @ 31. 250 / 250 25 mls/hr IV.SIG DAILY@1999 [facility] Rx#:[id number] Levaquin 750 mg Premix Inj 150 150 / 150 ML @ 100 mls/hr IV.SIG Q24H [facility] Rx#:[id number] Oral 400 / 400 220 / 220 Output: Urine 1999 Urine Amount (Catheter) 1600 / 1600 1200 / 1200 3-way Urethral 1600 / 1600 1200 / 1200 Other: Bladder Irrigation Fluid - Amount Instilled 3-way Urethral 1,200 1,500 Bladder Irrigation Fluid - Amount Drained 3-way Urethral 1,600 Date of Last Bowel Movement 01/21/19 01/21/19 01/21/19 # Incontinent Bowel Movements 1 <Pat Blas - 01/22/19 16:24> Vital Signs 01/20/19 12:00 01/20/19 16:00 01/20/19 20:00 Temperature 98.3 F 98.4 F 98.5 F Pulse Rate 106 H 109 H 114 H Respiratory Rate Blood Pressure 115/57 L 115/56 L 108/56 L Pulse Oximetry 95 96 95 01/21/19 00:00 01/21/19 04:00 01/21/19 08:00 Temperature 98.4 F 98.4 F 98.6 F Pulse Rate 107 H 107 H 111 H Respiratory Rate Blood Pressure 102/57 L 117/56 L 106/51 L Pulse Oximetry 96 93 L 94 L Intake & Output 01/20/19 01/21/19 01/21/19 18:59 06:59 18:59 Intake Total 720 / 720 2370 / 2370 Output Total 2300 / 2300 1000 / 1000 Balance -1580 / -1580 1370 / 1370 Weight 69.9 kg Intake: IV 2150 / 2150 Clinimix E 5%/D20W Inj 2,000 ML 1999 / 1999 @ 83 mls/hr IV.SIG DAILY@2000 [facility] Rx#:[id number] Levaquin 750 mg Premix Inj 150 150 / 150 ML @ 100 mls/hr IV.SIG Q48H [facility] Rx#:[id number] Oral 720 / 720 220 / 220 Output: Urine 1000 / 1000 Stool 1400 / 1400 0 / 0 Urine Amount (Catheter) 900 / 900 3-way Urethral 900 / 900 Other: Bladder Irrigation Fluid - Amount Instilled 3-way Urethral 300 Date of Last Bowel Movement 01/19/19 01/21/19 <Zhao Brian - 01/21/19 10:34> Narrative: General: Elderly male, no acute distress. Eyes: EOMI, anicteric scleral, no conjunctival injection ENT: Atraumatic, MMM Neck: Trachea midline, no masses Respiratory: normal respiratory effort, CTAB, no wheezes or crackles Cardiovascular: Regular rate and rhythm without murmur, 1+ pedal pulses, no peripheral edema Abdomen: Normal bowel sounds. Nontender, soft, no guarding or rebound. : rectal tube in place, Galvez catheter in place Psychiatric: Alert and oriented. Normal affect. <Zhao Brian 01/21/19 11:10> - Urinary Catheter Management 3-way Urethral Cath placed during this visit: no <Pat Blas 01/22/19 16:24> no <SharonglZhao Davsi 01/21/19 12:53> Reason for continuing: Gross Hematuria <SharonglZhao Davis 01/21/19 10: 34> Indwelling Urethral Catheter Cath placed during this visit: no <Pat Blas 01/22/19 16:24> yes, but has since been removed by the nurse <SharonglZhao Davis 01/21/19 12:53> Urethral indwelling: Yes <SharonglZhao Davis 01/21/19 10:34> Reason for continuing: Gross Hematuria <Stagliano Zhao Garg 01/21/19 10: 34> Insertion date: 01/09/19 <Stagliano Zhao Garg 01/21/19 10:34> Insertion time: 17:35 <Stagliano Zhao Garg 01/21/19 10:34> Removal date: 01/09/19 <Stagliano Zhao Garg 01/21/19 10:34> Removal time: 17:30 <Stagliano R1Zhao 01/21/19 10:34> Assessment and Plan - Assessment (1) Partial bowel obstruction Code(s): K56.600 - Partial intestinal obstruction, unspecified as to cause Status: Acute (2) Pneumonia Code(s): J18.9 - Pneumonia, unspecified organism Status: Acute (3) Complicated urinary tract infection Code(s): N39.0 - Urinary tract infection, site not specified Status: Acute (4) Gross hematuria Code(s): R31.0 - Gross hematuria Status: Resolved (5) Hypertension Code(s): I10 - Essential (primary) hypertension Status: Chronic (6) Prostate cancer Code(s): C61 - Malignant neoplasm of prostate Status: Chronic <Pat Blas 01/22/19 16:24> (1) Partial bowel obstruction Code(s): K56.600 - Partial intestinal obstruction, unspecified as to cause Status: Acute Plan: (2) Pneumonia Code(s): J18.9 - Pneumonia, unspecified organism Status: Acute Plan: (3) Complicated urinary tract infection Code(s): N39.0 - Urinary tract infection, site not specified Status: Acute Plan: (4) Gross hematuria Code(s): R31.0 - Gross hematuria Status: Resolved Plan: (5) Hypertension Code(s): I10 - Essential (primary) hypertension Status: Chronic Plan: (6) Prostate cancer Code(s): C61 - Malignant neoplasm of prostate Status: Chronic Plan: <Zhao Brian J - 01/21/19 12:52> - Assessment and Plan He is an 83-year-old male with a history of prostate cancer admitted with hematuria found to have a partial small bowel obstruction. Partial small bowel obstruction / ileus: Had multiple days with no bowel movements and worsening distention and nausea/vomiting on 01/11. KUB at that time showed an abnormal bowel gas pattern. He was put NPO, NG tube to suction, IV fluids. KUB on 01/14 showed significant decrease in the prominence of bowel loops. He is currently having diarrhea now, NG tube was removed yesterday, he is tolerating some full liquids and is still on TPN. General surgery consulted and recommends continued medical management at this time. Continued recommendations are appreciated. TPN rate was halved for AA, glucose, and electrolytes. Continue Reglan 5mg IV q12h We will advance diet as tolerated General surgery signed off Diarrhea: Since he began to have movements he has had diarrhea. C. difficile PCR ordered Continue probiotics Complicated UTI with gross hematuria: Culture positive for Pseudomonas. Originally came in with hematuria, still has some transient hematuria. Flomax, hold oxybutynin H&H stable, will continue to follow Blood cultures negative to date Levaquin (ID recommended 14 days, started 01/14) changed to every 24 hours due to improved renal function Pneumonia: Chest x-ray showing bilateral infiltrates on 01/11. Stable respiratory status, still has cough. Antibiotics as above Repeat chest x-ray ordered Incentive spirometry -Duoneb q6h as needed for shortness of breath/wheezing Hypertension: Continue home medication metoprolol Hyperlipidemia: Continue home medication pravastatin Prostate cancer with bone metastases He will follow-up with urologist [facility] the [facility] for management as outpatient -Patient was taking Xtandi 40mg daily, brought in medicine Fluids: Some p.o. intake and decreased rate of TPN Electrolytes: monitor and replete as needed Nutrition: Full liquids, advance as tolerated. Currently weaning TPN. He is having some difficulty swallowing pills this morning therefore speech therapy consult for swallow eval ordered. GI prophylaxis: Daily IV Protonix (on p.o. Protonix at home) VTE prophylaxis: b/l SCDs (pharmacologic prophylaxis contraindicated due to hematuria) Disposition: Significant deconditioning, daily PT, they recommend PT at rehab, this was discussed with the patient today, he is reluctant to go to rehab, but thinks it might be helpful. He will discuss this with his . <Zhao Brian - 01/21/19 12:53> - Attending Attestation The exam, history, and the medical decision-making described in the above note were completed with the assistance of the resident physician. I reviewed and agree with the findings presented. I attest that I had a [id number] encounter with the patient on the same day, and personally performed and documented my assessment and findings in the medical record. agre with checking C diff. this is too much diarrhea and he has been on abx during his hospital stay as well <Pat Blas - 01/22/19 16:24>
[2019-01-21 10:42] LABS: Baso % (Auto) 0.3 % (0.0-2.0); Eos # (Auto) 0.5 th/mm3 (0.0-0.4); Eos % (Auto) 5.9 % (0.0-4.0); Hematocrit 30.7 % (39.0-51.0); Hemoglobin 10.3 gm/dL (13.0-17.0); Lymph # (Auto) 1.2 th/mm3 (1.0-4.8); Lymph % (Auto) 14.9 % (9.0-44.0); Mean Corpuscular HGB Conc 33.5 % (32.0-36.0); Mean Corpuscular Hemoglobin 30.1 pg (27.0-34.0); Mean Corpuscular Volume 89.8 fL (80.0-100.0); Mono # (Auto) 0.7 th/mm3 (0.0-0.9); Mono % (Auto) 9.6 % (0.0-8.0); Neut # (Auto) 5.4 th/mm3 (1.8-7.7); Neut % (Auto) 69.3 % (16.0-70.0); Platelet Count 392 th/mm3 (150-450); Red Blood Count 3.41 mil/mm3 (4.50-5.90); Red Cell Distribution Width 15.2 % (11.6-17.2); White Blood Count 7.8 th/mm3 (4.0-11.0)
--- NOTE | 2019-01-21 11:04 | P.PNGS ---
Subjective Interval history: DAILY PROGRESS NOTE FOR SURGICAL ATTENDING, DR. DEYANIRA LIRIANO Resting in bed Multiple BMs Tolerating full liquids Physical Exam Vital signs: Vital Signs 01/20/19 12:00 01/20/19 16:00 01/20/19 20:00 Temperature 98.3 F 98.4 F 98.5 F Pulse Rate 106 H 109 H 114 H Respiratory Rate 20 20 20 Blood Pressure 115/57 L 115/56 L 108/56 L Pulse Oximetry 95 96 95 01/21/19 00:00 01/21/19 04:00 01/21/19 08:00 Temperature 98.4 F 98.4 F 98.6 F Pulse Rate 107 H 107 H 111 H Respiratory Rate 20 20 19 Blood Pressure 102/57 L 117/56 L 106/51 L Pulse Oximetry 96 93 L 94 L 01/21/19 10:56 Temperature Pulse Rate Respiratory Rate Blood Pressure Pulse Oximetry 94 L Intake & Output 01/20/19 01/21/19 01/21/19 18:59 06:59 18:59 Intake Total 720 / 720 2370 / 2370 250 / 250 Output Total 2300 / 2300 1000 / 1000 Balance -1580 / -1580 1370 / 1370 250 / 250 Weight 69.9 kg Intake: IV 2150 / 2150 250 / 250 Clinimix E 5%/D20W Inj 2,000 ML 1999 @ 83 mls/hr IV.SIG DAILY@1999 [facility] Rx#:[id number] Intralipid 20% Inj 250 ML @ 31. 250 / 250 25 mls/hr IV.SIG DAILY@1999 [facility] Rx#:[id number] Levaquin 750 mg Premix Inj 150 150 / 150 ML @ 100 mls/hr IV.SIG Q48H [facility] Rx#:[id number] Oral 720 / 720 220 / 220 Output: Urine 1000 / 1000 Stool 1400 / 1400 0 / 0 Urine Amount (Catheter) 900 / 900 3-way Urethral 900 / 900 Other: Bladder Irrigation Fluid - Amount Instilled 3-way Urethral 300 Date of Last Bowel Movement 01/19/19 01/21/19 Narrative: Alert and awake Abd: soft; non tender non distended - Urinary Catheter Management Indwelling Urethral Catheter Cath placed during this visit: yes, but has since been removed by the nurse Urethral indwelling: Yes Reason for continuing: Gross Hematuria Insertion date: 01/09/19 Insertion time: 17:35 Removal date: 01/09/19 Removal time: 17:30 3-way Urethral Cath placed during this visit: no Reason for continuing: Gross Hematuria Results - Labs 01/21/19 09:30 01/21/19 07:20 Laboratory Results - last 24 hr 01/20/19 01/20/19 01/20/19 13:16 17:28 20:53 WBC RBC Hgb Hct MCV MCH MCHC RDW Plt Count MPV Prelim Diff (Auto) Neut % (Auto) Lymph % (Auto) [place] % (Auto) Eos % (Auto) Baso % (Auto) Neut # (Auto) Lymph # (Auto) [place] # (Auto) Eos # (Auto) Baso # (Auto) Differential Comment Sodium Potassium Chloride Carbon Dioxide Anion Gap BUN Creatinine Estimated GFR POC Glucose 138 H 139 H 114 H Random Glucose Calcium Phosphorus Magnesium Total Bilirubin AST ALT Alkaline Phosphatase Total Protein Albumin 01/21/19 01/21/19 07:20 09:30 WBC 7.8 RBC 3.41 L Hgb 10.3 L Hct 30.7 L MCV 89.8 MCH 30.1 MCHC 33.5 RDW 15.2 Plt Count 392 MPV 8.0 Prelim Diff (Auto) Slide review pending Neut % (Auto) 69.3 Lymph % (Auto) 14.9 [place] % (Auto) 9.6 H Eos % (Auto) 5.9 H Baso % (Auto) 0.3 Neut # (Auto) 5.4 Lymph # (Auto) 1.2 [place] # (Auto) 0.7 Eos # (Auto) 0.5 H Baso # (Auto) 0.0 Differential Comment . Sodium 135 L Potassium 3.4 L Chloride 104 Carbon Dioxide 21.0 Anion Gap 10 BUN 21 H Creatinine 0.91 Estimated GFR 79 L POC Glucose Random Glucose 95 Calcium 7.7 L Phosphorus 1.9 L Magnesium 1.9 Total Bilirubin 0.1 L AST 18 ALT 11 L Alkaline Phosphatase 87 Total Protein 5.4 L Albumin 1.6 L - Imaging Imaging: ITS Impressions Liver Ultrasound 01/07/19 00:00 CONCLUSION: 1. Minimal increase in echogenicity of the liver without mass or hydronephrosis. 2. There is no ductal dilatation Chest X-Ray 01/11/19 00:00 CONCLUSION: Mild bilateral infiltrates Abdomen/Pelvis CT 01/17/19 00:00 CONCLUSION: 1. Persistent dilation of small bowel loops with a discrete transition in the region of the ileum concerning for at least a partial small bowel obstruction. The degree of small bowel distention is relatively stable. 2. Postsurgical changes with findings of prior prostatectomy. Penile prostheses but the reservoir appears to be decompressed. 3. Extensive sclerosis and cortical thickening predominantly in the right ilium and acetabulum. Some sclerosis in the left ilium, pubic ramus and lower lumbar spine. 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 4. Stable small bilateral pleural effusions with concomitant atelectatic changes. Mild abdominal ascites around the hepatic convexity is slightly increased. 5. Old granulomatous disease. Abdomen X-Ray 01/17/19 07:00 CONCLUSION: Moderate severity small bowel distention without significant change. Assessment and Plan - Assessment (1) Acute hemorrhagic cystitis Code(s): N30.01 - Acute cystitis with hematuria Status: Acute (2) UTI (urinary tract infection) Code(s): N39.0 - Urinary tract infection, site not specified Status: Acute (3) Complicated urinary tract infection Code(s): N39.0 - Urinary tract infection, site not specified Status: Acute (4) Elevated amylase and lipase Code(s): R74.8 - Abnormal levels of other serum enzymes Status: Acute - Plan 83 year old male with recurrent prostate cancer; UTI; pneumonia; radiological findings of SBO -Tolerating full liquids -Advance to regular diet -Cut TPN in half now and DC tomorrow after supply is exhausted -Monitor electrolytes -ID following -Ileus is resolved -General Surgery will sign off - Attending Attestation NOTE FOR SURGICAL ATTENDING, DR. DEYANIRA LIRIANO I agree with above assessment and plan. The exam, history, and the medical decision-making described in the above note were completed with the assistance of the mid-level provider. I reviewed and agree with the findings presented. I attest that I had a [id number] encounter with the patient on the same day, and personally performed and documented my assessment and findings in the medical record. The following services were provided during this hospital visit: Chart data review, vital sign assessments/reviewing monitor data Review of consultations notes if present. Medication orders/review and/or management Ordering and/or reviewing lab tests Ordering and/or interpreting/reviewing x-rays and/or diagnostic studies Care of the patient and discussion of the patient with the care team Documentation time To help prompt me to consider important information that might be impacting today's encounter and assessment, Information from prior notes written by myself or my colleagues may have been "brought forward/copy and pasted" into today's note.
[2019-01-21 11:24] LABS: Eosinophils 5 % (0-4); Lymphocytes 10 % (9-44); Monocytes 12 % (0-8); Myelocytes 4 % (0-0); Platelet Estimate Normal (Normal); Platelet Morphology Clumped (Normal); Promyelocyte 1 % (0-0)
[2019-01-21] MEDS: Pantoprazole Inj 40 MG Vial IV.PUSH SCH (12:41)
--- NOTE | 2019-01-21 14:02 | XR ---
EXAM DATE: 01/21/2019 1:58 PM EST AGE/SEX: 83 years / Male INDICATIONS: Pneumonia. CLINICAL DATA: This is the patient's initial encounter. Patient reports that signs and symptoms have been present for 4 - 6 days and indicates a pain score of 0/10. MEDICAL/SURGICAL HISTORY: . cough . coronary artery stents COMPARISON: [facility], CHEST 1V SINGLE AP, 01/11/2019. . FINDINGS: PICC line in good position. Interval improvement with less bibasilar parenchymal changes. The heart and pulmonary vascularity are normal. The portion of the bony skeleton visualized is unremarkable. CONCLUSION: Interval improvement as above Electronically signed by: Lavon Floyd MD Board Certified Radiologist 01/21/2019 2:01 PM EST
--- NOTE | 2019-01-21 14:55 | P.DIET ---
Nutritional Evaluation Type of nutrition evaluation: initial Nutrition consult regarding: TPN/PPN Subjective Subjective Comments: Ate 25% of lunch today. Objective - Diagnosis UTI, Hemorrhagic Cystitis, - Objective Body Weight Used for Calculations: IBW (148#/ 67.3 kg) Energy Needs - Lower Range (kCal/kg): 25 Energy Needs - Upper Range (kCal/kg): 30 Lower Limit kCal/kg (kCals): 1,683 Upper Limit kCal/kg (kCals): 2,019 Lower Limit Protein Factor (Grams per Kg): 1.0 Upper Limit Protein Factor (Grams per Kg): 1.5 Lower Protein Needs (Protein): 67 Upper Protein Needs (Protein): 101 Dietitian Reviewed in Medical Record: Curent medications, Intake & Output, Labs , Medical history, TPN/PPN Diet Order: Regular Speech Therapy Recommendations: Yes (reg/thin (01/21)) Objective Comments: Med hx includes prostate CA with bone mets Meds include remeron, lactinex, protonix, Vit B12 Assessment Assessment: Pt is at high nutrition risk, ileus is resolved and diet now advanced to regular after pt tolerated full liquids. Intake is poor at this time. TPN of Clinimiix E 04/18 @ 40 mls/hr is ordered. Recommend wean TPN per protocol. RD will continue to monitor po intake and assess the need for supplements. Recommendations: Wean TPN RD following. Dietitian to Monitor: Lab values, Intake & Output, Diet tolerance, Weight change , PO Intake, Diet advancement, Medical course
[2019-01-21] MEDS: Mirtazapine 15 MG Tablet PO SCH (21:20)
[2019-01-21] MEDS: Heparin Central Flush 100 UNIT/ML 5 ML Vial IV.FLUSH PRN (21:21)
[2019-01-21] MEDS: [UNRECOGNIZED DRUG - OTHER] IV.SIG SCH (23:20)
[2019-01-21] MEDS: ELECTROLYTES IV.SIG SCH (23:20)
--- NOTE | 2019-01-22 08:06 | P.DCO ---
- Physical Therapy Order: Evaluate and treat, Improve ambulation, Strength and gait training - Home Health Nursing Order: Medical education, Signs/symptoms of disease process, Medication education-adverse effect - Home Health Aide Order: To assist in: Bathing and personal care, transportation refrigeration technician and meal prep - [place] Balance Order: To evaluate: Living conditions/environment, Support services - Case Management Consult Case Management Consult-Home Health: Yes - Certification I have seen patient Fuentes Rutherford on 01/22/19. My clinical findings support the need for the requested home health care services because: Limited mobility due to disease progression, Deconditioned with increased weakness, Limited ability to care for self, Need for psychosocial assistance, High risk of falls, Infection with risk of complications I certify that my clinical findings support that this patient is homebound because: Unsteady gait/balance, Unsafe to leave home unassisted, Need for psychosocial assistance
--- NOTE | 2019-01-22 08:15 | P.PNFP ---
Subjective Interval history: Reports nausea and little PO intake. He stats that his continued cough makes it difficult for him to tolerate food. He denies any SOB. He has had continued diarrhea and intermittent hematuria. He denies HUFF, lightheadedness, dizziness, fever, chills, emesis, chest pain, palpitations, abdominal pain. He does report a general feeling of weakness. <Kayode Zhao Garg - 01/22/19 10:23> Results - Labs Result diagrams: 01/22/19 12:32 01/21/19 07:20 <WanPat Claribel - 01/22/19 16:27> Abnormal lab results 01/21/19 01/21/19 01/22/19 Range/Units 11:45 22:20 07:41 RBC (4.50-5.90) mil/mm3 Hgb (13.0-17.0) gm/dL Hct (39.0-51.0) % MCV (80.0-100.0) fL MCHC (32.0-36.0) % RDW (11.6-17.2) % [place] % (Auto) (0.0-8.0) % Eos % (Auto) (0.0-4.0) % Lymph # (Auto) (1.0-4.8) th/mm3 [place] # (Auto) (0.0-0.9) th/mm3 POC Glucose 120 H 158 H (68-110) mg/dl Stool C.difficile Ag Positive H (Negative) Stool C.difficile Toxin Positive H (Negative) 01/22/19 01/22/19 Range/Units 11:58 12:32 RBC 2.81 L (4.50-5.90) mil/mm3 Hgb 8.7 L (13.0-17.0) gm/dL Hct 28.9 L (39.0-51.0) % MCV 102.7 H D (80.0-100.0) fL MCHC 30.0 L (32.0-36.0) % RDW 17.5 H (11.6-17.2) % [place] % (Auto) 14.4 H (0.0-8.0) % Eos % (Auto) 5.6 H (0.0-4.0) % Lymph # (Auto) 0.8 L (1.0-4.8) th/mm3 [place] # (Auto) 1.0 H (0.0-0.9) th/mm3 POC Glucose 152 H (68-110) mg/dl Stool C.difficile Ag (Negative) Stool C.difficile Toxin (Negative) Short CBC 01/22/19 Range/Units 12:32 WBC 6.9 (4.0-11.0) th/mm3 Hgb 8.7 L (13.0-17.0) gm/dL Hct 28.9 L (39.0-51.0) % Plt Count 353 (150-450) th/mm3 <Pat Blas Claribel - 01/22/19 16:27> Abnormal lab results 01/21/19 01/21/19 01/21/19 Range/Units 07:20 09:30 11:45 RBC 3.41 L (4.50-5.90) mil/mm3 Hgb 10.3 L (13.0-17.0) gm/dL Hct 30.7 L (39.0-51.0) % [place] % (Auto) 9.6 H (0.0-8.0) % Eos % (Auto) 5.9 H (0.0-4.0) % Eos # (Auto) 0.5 H (0.0-0.4) th/mm3 Monocytes % (Manual) 12 H (0-8) % Eosinophils % (Manual) 5 H (0-4) % Myelocytes % (Man) 4 H (0-0) % Promyelocytes % (Man) 1 H (0-0) % Platelet Morphology Clumped H (Normal) Sodium 135 L (136-145) meq/L Potassium 3.4 L (3.5-5.1) meq/L BUN 21 H (7-18) mg/dL Estimated GFR 79 L (>89) mL/min POC Glucose (68-110) mg/dl Calcium 7.7 L (8.5-10.1) mg/dL Phosphorus 1.9 L (2.5-4.9) mg/dL Total Bilirubin 0.1 L (0.2-1.0) mg/dL ALT 11 L (12-78) U/L Total Protein 5.4 L (6.4-8.2) g/dL Albumin 1.6 L (3.4-5.0) g/dL Stl C.difficile DNA Amp Positive H (Negative) St C. diff Tox Epid 027 Positive H (Negative) 01/21/19 01/22/19 Range/Units 22:20 07:41 RBC (4.50-5.90) mil/mm3 Hgb (13.0-17.0) gm/dL Hct (39.0-51.0) % [place] % (Auto) (0.0-8.0) % Eos % (Auto) (0.0-4.0) % Eos # (Auto) (0.0-0.4) th/mm3 Monocytes % (Manual) (0-8) % Eosinophils % (Manual) (0-4) % Myelocytes % (Man) (0-0) % Promyelocytes % (Man) (0-0) % Platelet Morphology (Normal) Sodium (136-145) meq/L Potassium (3.5-5.1) meq/L BUN (7-18) mg/dL Estimated GFR (>89) mL/min POC Glucose 120 H 158 H (68-110) mg/dl Calcium (8.5-10.1) mg/dL Phosphorus (2.5-4.9) mg/dL Total Bilirubin (0.2-1.0) mg/dL ALT (12-78) U/L Total Protein (6.4-8.2) g/dL Albumin (3.4-5.0) g/dL Stl C.difficile DNA Amp (Negative) St C. diff Tox Epid 027 (Negative) Short CBC 01/21/19 Range/Units 09:30 WBC 7.8 (4.0-11.0) th/mm3 Hgb 10.3 L (13.0-17.0) gm/dL Hct 30.7 L (39.0-51.0) % Plt Count 392 (150-450) th/mm3 BMP 01/21/19 07:20 Sodium 135 L Potassium 3.4 L Chloride 104 Carbon Dioxide 21.0 BUN 21 H Creatinine 0.91 Calcium 7.7 L Liver Function 01/21/19 Range/Units 07:20 Total Bilirubin 0.1 L (0.2-1.0) mg/dL AST 18 (15-37) U/L ALT 11 L (12-78) U/L Alkaline Phosphatase 87 (45-117) U/L Albumin 1.6 L (3.4-5.0) g/dL <Zhao Brian - 01/22/19 08:15> - Imaging Impressions Chest X-Ray 01/21/19 00:00 CONCLUSION: Interval improvement as above <Zhao Brian - 01/22/19 08:15> Physical Exam Vital signs: Vital Signs 01/21/19 20:00 01/22/19 00:00 01/22/19 04:00 Temperature 97.5 F L 97.9 F 98.0 F Pulse Rate 110 H 103 H 106 H Respiratory Rate 20 20 20 Blood Pressure 107/57 L 101/56 L 141/63 H Pulse Oximetry 92 L 96 96 01/22/19 08:00 01/22/19 12:00 Temperature 97.8 F 98.1 F Pulse Rate 104 H 103 H Respiratory Rate 18 18 Blood Pressure 111/54 L 113/59 L Pulse Oximetry 95 95 Intake & Output 01/21/19 01/22/19 01/22/19 18:59 06:59 18:59 Intake Total 800 / 800 2691 / 2691 Output Total 1600 / 1600 3200 / 3200 Balance -800 / -800 -509 / -509 Intake: IV 400 / 400 2471 / 2471 Clinimix E 5%/D20W Inj 2,000 ML 2471 / 2471 @ 40 mls/hr IV.SIG DAILY@1999 [facility] Rx#:[id number] Intralipid 20% Inj 250 ML @ 31. 250 / 250 25 mls/hr IV.SIG DAILY@1999 [facility] Rx#:[id number] Levaquin 750 mg Premix Inj 150 150 / 150 ML @ 100 mls/hr IV.SIG Q24H [facility] Rx#:[id number] Oral 400 / 400 220 / 220 Output: Urine 1999 Urine Amount (Catheter) 1600 / 1600 1200 / 1200 3-way Urethral 1600 / 1600 1200 / 1200 Other: Bladder Irrigation Fluid - Amount Instilled 3-way Urethral 1,200 1,500 Bladder Irrigation Fluid - Amount Drained 3-way Urethral 1,600 Date of Last Bowel Movement 01/21/19 01/21/19 01/21/19 # Incontinent Bowel Movements 1 <Pat Blas - 01/22/19 16:27> Vital Signs 01/21/19 08:00 01/21/19 10:56 01/21/19 11:39 Temperature 98.6 F 98.5 F Pulse Rate 111 H 107 H Respiratory Rate 19 18 Blood Pressure 106/51 L 120/57 L Pulse Oximetry 94 L 94 L 96 01/21/19 12:00 01/21/19 16:11 01/21/19 20:00 Temperature 98 F 98.7 F 97.5 F L Pulse Rate 102 H 104 H 110 H Respiratory Rate 18 19 20 Blood Pressure 120/57 L 111/56 L 107/57 L Pulse Oximetry 95 95 92 L 01/22/19 00:00 01/22/19 04:00 Temperature 97.9 F 98.0 F Pulse Rate 103 H 106 H Respiratory Rate 20 20 Blood Pressure 101/56 L 141/63 H Pulse Oximetry 96 96 Intake & Output 01/21/19 01/22/19 01/22/19 18:59 06:59 18:59 Intake Total 800 / 800 2691 / 2691 Output Total 1600 / 1600 3200 / 3200 Balance -800 / -800 -509 / -509 Intake: IV 400 / 400 2471 / 2471 Clinimix E 5%/D20W Inj 2,000 ML 2471 / 2471 @ 40 mls/hr IV.SIG DAILY@1999 [facility] Rx#:[id number] Intralipid 20% Inj 250 ML @ 31. 250 / 250 25 mls/hr IV.SIG DAILY@1999 [facility] Rx#:[id number] Levaquin 750 mg Premix Inj 150 150 / 150 ML @ 100 mls/hr IV.SIG Q24H [facility] Rx#:[id number] Oral 400 / 400 220 / 220 Output: Urine 1999 Urine Amount (Catheter) 1600 / 1600 1200 / 1200 3-way Urethral 1600 / 1600 1200 / 1200 Other: Bladder Irrigation Fluid - Amount Instilled 3-way Urethral 1,200 1,500 Bladder Irrigation Fluid - Amount Drained 3-way Urethral 1,600 Date of Last Bowel Movement 01/21/19 01/21/19 # Incontinent Bowel Movements 1 <Kayode GargSachinZhao J - 01/22/19 08:15> Narrative: General: Elderly male, no acute distress. Eyes: EOMI, anicteric scleral, no conjunctival injection ENT: Atraumatic, MMM Neck: Trachea midline, no masses Respiratory: normal respiratory effort, b/l decreased breath sounds and wet crackles. Cardiovascular: Regular rate and rhythm without murmur, 1+ pedal pulses, no peripheral edema Abdomen: Normal bowel sounds. Nontender, soft, no guarding or rebound. : rectal tube in place, Galvez catheter in place Psychiatric: Alert and oriented. Normal affect. <Zhao Brian 01/22/19 10:23> - Urinary Catheter Management 3-way Urethral Cath placed during this visit: no <Pat Blas 01/22/19 16:27> no <Zhao Brian 01/22/19 14:03> Reason for continuing: Gross Hematuria <Zhao Brian 01/22/19 08: 15> Indwelling Urethral Catheter Cath placed during this visit: no <Pat Blas 01/22/19 16:27> yes, but has since been removed by the nurse <Zhao Brian 01/22/19 14:03> Urethral indwelling: Yes <SharonglZhao Davis 01/22/19 08:15> Reason for continuing: Gross Hematuria <Sharongliano Zhao Garg 01/22/19 08: 15> Insertion date: 01/09/19 <Stagliano Zhao Garg 01/22/19 08:15> Insertion time: 17:35 <Stagliano Zhao Garg 01/22/19 08:15> Removal date: 01/09/19 <Stagliano Lindsay Gargs Elizabeth 01/22/19 08:15> Removal time: 17:30 <Stagliano Lindsay Gargs Elizabeth 01/22/19 08:15> Assessment and Plan - Assessment (1) Partial bowel obstruction Code(s): K56.600 - Partial intestinal obstruction, unspecified as to cause Status: Acute (2) Pneumonia Code(s): J18.9 - Pneumonia, unspecified organism Status: Acute (3) Complicated urinary tract infection Code(s): N39.0 - Urinary tract infection, site not specified Status: Acute (4) Gross hematuria Code(s): R31.0 - Gross hematuria Status: Resolved (5) Hypertension Code(s): I10 - Essential (primary) hypertension Status: Chronic (6) Prostate cancer Code(s): C61 - Malignant neoplasm of prostate Status: Chronic <Pat Blas - 01/22/19 16:27> (1) Partial bowel obstruction Code(s): K56.600 - Partial intestinal obstruction, unspecified as to cause Status: Acute Plan: (2) Pneumonia Code(s): J18.9 - Pneumonia, unspecified organism Status: Acute Plan: (3) Complicated urinary tract infection Code(s): N39.0 - Urinary tract infection, site not specified Status: Acute Plan: (4) Gross hematuria Code(s): R31.0 - Gross hematuria Status: Resolved Plan: (5) Hypertension Code(s): I10 - Essential (primary) hypertension Status: Chronic Plan: (6) Prostate cancer Code(s): C61 - Malignant neoplasm of prostate Status: Chronic Plan: <Zhao Brian - 01/22/19 14:00> - Assessment and Plan He is an 83-year-old male with a history of prostate cancer admitted with hematuria found to have a partial small bowel obstruction. Partial small bowel obstruction / ileus: Had multiple days with no bowel movements and worsening distention and nausea/vomiting on 01/11. KUB at that time showed an abnormal bowel gas pattern. He was put NPO, NG tube to suction, IV fluids. SBO . ileus resolved, he is currently having diarrhea now, NG tube was removed 01/19 he is on a regular diet and half speed TPN. General surgery consulted, patient was managed medically. They have signed off Plan to discontinue TPN today Reglan 5mg IV q8h scheduled for nausea Zofran as needed for nausea Diarrhea: Since he began to have movements he has had diarrhea. C. difficile PCR positive, confirmatory test reflex ordered. Oral vancomycin started yesterday Complicated UTI with gross hematuria: Culture positive for Pseudomonas. Originally came in with hematuria, still has some transient hematuria. On Flomax, hold oxybutynin H&H stable, will continue to follow Blood cultures negative to date Infection adequately treated with Levaquin. Now stopped abx due to C. Diff. Pneumonia: Resolved. Chest x-ray showing bilateral infiltrates on 01/11. Stable respiratory status, but has continued cough. Abx stopped due to C. Diff. Repeat chest x-ray 01/21 showed some improvement Incentive spirometry -Mucinex and Tessalon for symptomatic cough Hypertension: Continue home medication metoprolol Hyperlipidemia: Continue home medication pravastatin Prostate cancer with bone metastases He will follow-up with urologist at the [facility] for management as outpatient -Patient was taking Xtandi 40mg daily, brought in medicine Fluids: Adequate PO intake Electrolytes: monitor and replete as needed Nutrition: Regular diet as tolerate, GI prophylaxis: Daily IV Protonix (on p.o. Protonix at home) VTE prophylaxis: b/l SCDs (pharmacologic prophylaxis contraindicated due to hematuria) Disposition: Significant deconditioning, daily PT, they recommend PT at rehab, this was discussed with the patient again today. He will discuss this with his . <Zhao Brian - 01/22/19 14:03> - Attending Attestation The exam, history, and the medical decision-making described in the above note were completed with the assistance of the resident physician. I reviewed and agree with the findings presented. I attest that I had a [id number] encounter with the patient on the same day, and personally performed and documented my assessment and findings in the medical record. he needs to get up and get PT. His evidently wants him to go home after his hospitalization and declines rehab. I am not convinced he will be able to make it at home as he has been very ill and bedridden during this hospitalization <Pat Blas - 01/22/19 16:27>
[2019-01-22] MEDS: Metoprolol Tartrate 25 MG Tablet PO SCH ×2 (09:42→20:09)
[2019-01-22] MEDS: XTANDI 40 MG PO SCH (09:42)
[2019-01-22] MEDS: Lactobacillus Acidophilus/L. Spores Tablet PO SCH ×2 (09:42→20:08)
[2019-01-22] MEDS: Heparin Central Flush 100 UNIT/ML 5 ML Vial IV.FLUSH SCH (09:44)
[2019-01-22] MEDS: Benzonatate 100 MG Capsule PO SCH ×2 (11:18→18:12)
[2019-01-22] MEDS: guaiFENesin 600 MG ER Tablet PO SCH ×2 (11:18→20:10)
[2019-01-22] MEDS: Pantoprazole Inj 40 MG Vial IV.PUSH SCH (11:19)
[2019-01-22 14:32] LABS: Baso % (Auto) 0.5 % (0.0-2.0); Eos # (Auto) 0.4 th/mm3 (0.0-0.4); Eos % (Auto) 5.6 % (0.0-4.0); Hematocrit 28.9 % (39.0-51.0); Hemoglobin 8.7 gm/dL (13.0-17.0); Lymph # (Auto) 0.8 th/mm3 (1.0-4.8); Lymph % (Auto) 11.1 % (9.0-44.0); Mean Corpuscular Hemoglobin 30.9 pg (27.0-34.0); Mean Corpuscular Volume 102.7 fL (80.0-100.0); Mean Platelet Volume 7.8 fL (7.0-11.0); Mono % (Auto) 14.4 % (0.0-8.0); Neut # (Auto) 4.7 th/mm3 (1.8-7.7); Platelet Count 353 th/mm3 (150-450); Red Blood Count 2.81 mil/mm3 (4.50-5.90); Red Cell Distribution Width 17.5 % (11.6-17.2)
[2019-01-22] MEDS: Heparin Central Flush 100 UNIT/ML 5 ML Vial IV.FLUSH PRN (20:05)
[2019-01-22] MEDS: Mirtazapine 15 MG Tablet PO SCH (20:09)
[2019-01-22 20:23] LABS: Baso # (Auto) 0.1 th/mm3 (0.0-0.2); Eos # (Auto) 0.5 th/mm3 (0.0-0.4); Eos % (Auto) 5.4 % (0.0-4.0); Hematocrit 27.9 % (39.0-51.0); Hemoglobin 9.5 gm/dL (13.0-17.0); Lymph % (Auto) 11.9 % (9.0-44.0); Mean Corpuscular Hemoglobin 29.7 pg (27.0-34.0); Mean Corpuscular Volume 87.5 fL (80.0-100.0); Mean Platelet Volume 7.3 fL (7.0-11.0); Mono # (Auto) 1.4 th/mm3 (0.0-0.9); Mono % (Auto) 16.4 % (0.0-8.0); Neut # (Auto) 5.5 th/mm3 (1.8-7.7); Neut % (Auto) 65.3 % (16.0-70.0); Platelet Count 415 th/mm3 (150-450); Red Blood Count 3.19 mil/mm3 (4.50-5.90); Red Cell Distribution Width 15.5 % (11.6-17.2); White Blood Count 8.5 th/mm3 (4.0-11.0)
[2019-01-22 20:32] LABS: Neut % (Auto) 68.4 % (16.0-70.0); White Blood Count 6.9 th/mm3 (4.0-11.0)
[2019-01-22 20:48] LABS: Calcium 7.7 mg/dL (8.5-10.1); Carbon Dioxide 23.3 meq/L (21.0-32.0); Potassium 3.7 meq/L (3.5-5.1)
[2019-01-23] MEDS: Benzonatate 100 MG Capsule PO SCH ×3 (02:56→18:23)
[2019-01-23 08:28] LABS: Baso # (Auto) 0.1 th/mm3 (0.0-0.2); Baso % (Auto) 0.9 % (0.0-2.0); Eos # (Auto) 0.5 th/mm3 (0.0-0.4); Eos % (Auto) 7.6 % (0.0-4.0); Hematocrit 26.7 % (39.0-51.0); Hemoglobin 9.2 gm/dL (13.0-17.0); Lymph % (Auto) 14.7 % (9.0-44.0); Mean Corpuscular HGB Conc 34.2 % (32.0-36.0); Mean Corpuscular Hemoglobin 30.5 pg (27.0-34.0); Mean Platelet Volume 7.5 fL (7.0-11.0); Mono % (Auto) 14.8 % (0.0-8.0); Neut # (Auto) 4.4 th/mm3 (1.8-7.7); Platelet Count 410 th/mm3 (150-450); Red Cell Distribution Width 15.4 % (11.6-17.2); White Blood Count 7.1 th/mm3 (4.0-11.0)
[2019-01-23 08:53] LABS: Calcium 7.6 mg/dL (8.5-10.1); Carbon Dioxide 22.1 meq/L (21.0-32.0); Potassium 3.9 meq/L (3.5-5.1)
[2019-01-23] MEDS: XTANDI 40 MG PO SCH (09:35)
[2019-01-23] MEDS: Metoprolol Tartrate 25 MG Tablet PO SCH ×2 (09:36→21:56)
[2019-01-23] MEDS: Lactobacillus Acidophilus/L. Spores Tablet PO SCH ×2 (09:36→21:56)
[2019-01-23] MEDS: guaiFENesin 600 MG ER Tablet PO SCH ×2 (09:36→21:56)
[2019-01-23] MEDS: Heparin Central Flush 100 UNIT/ML 5 ML Vial IV.FLUSH SCH (09:37)
[2019-01-23] MEDS: Pantoprazole Inj 40 MG Vial IV.PUSH SCH (12:06)
--- NOTE | 2019-01-23 12:37 | P.PNFP ---
Subjective Interval history: He reports some improvement in his p.o. intake. He no longer has diarrhea today. He continues to have intermittent hematuria. He denies headache, lightheadedness, dizziness, fever, chills, chest pain, shortness of breath, palpitations, abdominal pain. He still feels significantly weak. He is okay with going to rehab <Kayode Zhao Garg - 01/23/19 12:37> Results - Labs Result diagrams: 01/25/19 06:46 01/25/19 06:46 <Pat Blas - 01/25/19 11:42> Abnormal lab results 01/24/19 01/24/19 01/25/19 Range/Units 10:45 10:45 06:46 RBC 2.98 L (4.50-5.90) mil/mm3 Hgb 9.1 L (13.0-17.0) gm/dL Hct 26.3 L (39.0-51.0) % MPV 6.8 L (7.0-11.0) fL Platelet Estimate High H (Normal) Chloride (98-107) meq/L Anion Gap (5-15) meq/L Estimated GFR 60 L (>89) mL/min Random Glucose 128 H (74-106) mg/dL Calcium 7.8 L (8.5-10.1) mg/dL Albumin (3.4-5.0) g/dL 01/25/19 Range/Units 06:46 RBC (4.50-5.90) mil/mm3 Hgb (13.0-17.0) gm/dL Hct (39.0-51.0) % MPV (7.0-11.0) fL Platelet Estimate (Normal) Chloride 108 H (98-107) meq/L Anion Gap 4 L (5-15) meq/L Estimated GFR 69 L (>89) mL/min Random Glucose (74-106) mg/dL Calcium 7.4 L* (8.5-10.1) mg/dL Albumin 1.6 L (3.4-5.0) g/dL Short CBC 01/25/19 Range/Units 06:46 WBC 5.2 (4.0-11.0) th/mm3 Hgb 9.1 L (13.0-17.0) gm/dL Hct 26.3 L (39.0-51.0) % Plt Count 437 (150-450) th/mm3 BMP 01/24/19 01/25/19 10:45 06:46 Sodium 138 139 Potassium 3.6 3.9 Chloride 106 108 H Carbon Dioxide 23.3 26.7 BUN 16 11 Creatinine 1.16 1.02 Calcium 7.8 L 7.4 L* Liver Function 01/25/19 Range/Units 06:46 Albumin 1.6 L (3.4-5.0) g/dL <Pat Blas - 01/25/19 11:42> Abnormal lab results 01/22/19 01/22/19 01/22/19 Range/Units 12:32 17:24 20:03 RBC 2.81 L (4.50-5.90) mil/mm3 Hgb 8.7 L (13.0-17.0) gm/dL Hct 28.9 L (39.0-51.0) % MCV 102.7 H D (80.0-100.0) fL MCHC 30.0 L (32.0-36.0) % RDW 17.5 H (11.6-17.2) % [place] % (Auto) 14.4 H (0.0-8.0) % Eos % (Auto) 5.6 H (0.0-4.0) % Lymph # (Auto) 0.8 L (1.0-4.8) th/mm3 [place] # (Auto) 1.0 H (0.0-0.9) th/mm3 Eos # (Auto) (0.0-0.4) th/mm3 BUN 19 H (7-18) mg/dL Estimated GFR 88 L (>89) mL/min POC Glucose 125 H (68-110) mg/dl Random Glucose (74-106) mg/dL Calcium 7.7 L (8.5-10.1) mg/dL 01/22/19 01/23/19 01/23/19 Range/Units 20:03 07:25 07:25 RBC 3.19 L 3.00 L (4.50-5.90) mil/mm3 Hgb 9.5 L 9.2 L (13.0-17.0) gm/dL Hct 27.9 L 26.7 L (39.0-51.0) % MCV (80.0-100.0) fL MCHC (32.0-36.0) % RDW (11.6-17.2) % [place] % (Auto) 16.4 H 14.8 H (0.0-8.0) % Eos % (Auto) 5.4 H 7.6 H (0.0-4.0) % Lymph # (Auto) (1.0-4.8) th/mm3 [place] # (Auto) 1.4 H 1.0 H (0.0-0.9) th/mm3 Eos # (Auto) 0.5 H 0.5 H (0.0-0.4) th/mm3 BUN (7-18) mg/dL Estimated GFR 75 L (>89) mL/min POC Glucose (68-110) mg/dl Random Glucose 71 L (74-106) mg/dL Calcium 7.6 L (8.5-10.1) mg/dL Short CBC 01/22/19 01/22/19 01/23/19 Range/Units 12:32 20:03 07:25 WBC 6.9 8.5 7.1 (4.0-11.0) th/mm3 Hgb 8.7 L 9.5 L 9.2 L (13.0-17.0) gm/dL Hct 28.9 L 27.9 L 26.7 L (39.0-51.0) % Plt Count 353 415 410 (150-450) th/mm3 BMP 01/22/19 01/23/19 20:03 07:25 Sodium 137 137 Potassium 3.7 3.9 Chloride 105 106 Carbon Dioxide 23.3 22.1 BUN 19 H 17 Creatinine 0.83 0.95 Calcium 7.7 L 7.6 L <Kayode R1Zhao J - 01/23/19 12:37> Physical Exam Vital signs: Vital Signs 01/24/19 16:00 01/24/19 16:15 01/24/19 20:00 Temperature 98 F 98.1 F Pulse Rate 106 H 107 H Respiratory Rate 16 17 Blood Pressure 89/52 L 93/52 L 117/57 L Pulse Oximetry 96 96 01/24/19 21:10 01/25/19 00:00 01/25/19 04:00 Temperature 97.9 F 98.4 F Pulse Rate 99 H 102 H Respiratory Rate 15 17 Blood Pressure 98/54 L 108/62 Pulse Oximetry 95 98 94 L 01/25/19 08:00 01/25/19 08:24 01/25/19 08:27 Temperature 97.4 F L Pulse Rate 97 H 98 H Respiratory Rate 18 22 Blood Pressure 108/56 L Pulse Oximetry 95 95 Intake & Output 01/24/19 01/25/19 01/25/19 18:59 06:59 18:59 Intake Total 1220 / 1220 Output Total 950 / 950 6850 / 6850 Balance 270 / 270 -6850 / -6850 Weight 70.5 kg Intake: IV 500 / 500 NS Inj 500 ML @ 1000 mls/hr IV. 500 / 500 SIG [facility] Rx#:[id number] Oral 720 / 720 Output: Urine Amount (Catheter) 950 / 950 6850 / 6850 3-way Urethral 950 / 950 6850 / 6850 Other: Bladder Irrigation Fluid - Amount Instilled 3-way Urethral 6,000 Bladder Irrigation Fluid - Amount Drained 3-way Urethral 6,950 Date of Last Bowel Movement 01/22/19 <Pat Blas - 01/25/19 11:42> Vital Signs 01/22/19 16:00 01/22/19 20:00 01/22/19 22:21 Temperature 97.9 F 99 F Pulse Rate 110 H 110 H Respiratory Rate 18 16 Blood Pressure 112/55 L 99/54 L Pulse Oximetry 95 96 96 01/23/19 00:00 01/23/19 04:00 01/23/19 08:00 Temperature 99 F 97.8 F Pulse Rate 102 H 107 H Respiratory Rate 14 17 Blood Pressure 124/74 140/69 Pulse Oximetry 94 L 97 95 01/23/19 08:45 Temperature 98.4 F Pulse Rate 101 H Respiratory Rate 20 Blood Pressure 112/57 L Pulse Oximetry 95 Intake & Output 01/22/19 01/23/19 01/23/19 18:59 06:59 18:59 Intake Total 1749 / 1749 240 / 240 Output Total 150 / 150 2600 / 2600 Balance 1599 / 1599 -2360 / -2360 Weight 72.9 kg Intake: IV 1029 / 1029 Clinimix E 5%/D20W Inj 2,000 ML 1029 / 1029 @ 40 mls/hr IV.SIG DAILY@1999 [facility] Rx#:[id number] Oral 720 / 720 240 / 240 Output: Stool 150 / 150 Urine Amount (Catheter) 2600 / 2600 3-way Urethral 2600 / 2600 Other: Bladder Irrigation Fluid - Amount Instilled 3-way Urethral 800 2,200 # Voids 1,975 Date of Last Bowel Movement 01/21/19 01/21/19 <Zhao Brian 01/23/19 12:37> Narrative: General: Elderly male, no acute distress. Sitting in chair. Eyes: EOMI, anicteric scleral, no conjunctival injection ENT: Atraumatic, MMM Neck: Trachea midline, no masses Respiratory: normal respiratory effort, b/l decreased breath sounds and wet crackles. Cardiovascular: Regular rate and rhythm without murmur, 1+ pedal pulses, no peripheral edema Abdomen: Normal bowel sounds. Nontender, soft, no guarding or rebound. : Galvez catheter in place. Psychiatric: Alert and oriented. Normal affect. <Zhao Brian 01/23/19 12:37> - Urinary Catheter Management 3-way Urethral Cath placed during this visit: no <[place],Pat Sanford 01/25/19 11:42> no <Zhao Brian 01/23/19 13:54> Reason for continuing: Gross Hematuria <Zhao Brian 01/23/19 12: 37> Indwelling Urethral Catheter Cath placed during this visit: no <Pat Blas 01/25/19 11:42> yes, but has since been removed by the nurse <Zhao Brian 01/23/19 13:54> Urethral indwelling: Yes <Zhao Brian 01/23/19 12:37> Reason for continuing: Gross Hematuria <Zhao Brian 01/23/19 12: 37> Insertion date: 01/09/19 <Sharonglrenny Zhao Garg 01/23/19 12:37> Insertion time: 17:35 <Zhao Brian 01/23/19 12:37> Removal date: 01/09/19 <Zhao Brian - 01/23/19 12:37> Removal time: 17:30 <Zhao Brian - 01/23/19 12:37> Assessment and Plan - Assessment (1) Partial bowel obstruction Code(s): K56.600 - Partial intestinal obstruction, unspecified as to cause Status: Acute (2) Pneumonia Code(s): J18.9 - Pneumonia, unspecified organism Status: Acute (3) Complicated urinary tract infection Code(s): N39.0 - Urinary tract infection, site not specified Status: Acute (4) Gross hematuria Code(s): R31.0 - Gross hematuria Status: Resolved (5) Hypertension Code(s): I10 - Essential (primary) hypertension Status: Chronic (6) Prostate cancer Code(s): C61 - Malignant neoplasm of prostate Status: Chronic <Pat Blas - 01/25/19 11:42> (1) Partial bowel obstruction Code(s): K56.600 - Partial intestinal obstruction, unspecified as to cause Status: Acute Plan: (2) Pneumonia Code(s): J18.9 - Pneumonia, unspecified organism Status: Acute Plan: (3) Complicated urinary tract infection Code(s): N39.0 - Urinary tract infection, site not specified Status: Acute Plan: (4) Gross hematuria Code(s): R31.0 - Gross hematuria Status: Resolved Plan: (5) Hypertension Code(s): I10 - Essential (primary) hypertension Status: Chronic Plan: (6) Prostate cancer Code(s): C61 - Malignant neoplasm of prostate Status: Chronic Plan: <Zhao Brian - 01/23/19 13:51> - Assessment and Plan He is an 83-year-old male with a history of prostate cancer admitted with hematuria found to have a partial small bowel obstruction. Partial small bowel obstruction / ileus: Had multiple days with no bowel movements and worsening distention and nausea/vomiting on 01/11. KUB at that time showed an abnormal bowel gas pattern. He was put NPO, NG tube to suction, IV fluids. SBO . ileus resolved, he is currently having diarrhea now, NG tube was removed 01/19 he is on a regular diet and half speed TPN. General surgery consulted, patient was managed medically. They have signed off TPN was discontinued yesterday Reglan 5mg IV q8h scheduled for nausea Zofran as needed for nausea Diarrhea secondary to C. difficile: Oral vancomycin started 01/21 Diarrhea resolved today Complicated UTI with gross hematuria: Culture positive for Pseudomonas. Originally came in with hematuria, still has transient hematuria. On Flomax, hold oxybutynin H&H stable, will continue to follow Infection adequately treated with Levaquin. Levaquin stopped 01/22 due to C. difficile. Pneumonia: Resolved. Chest x-ray showing bilateral infiltrates on 01/11. Stable respiratory status, but has continued cough. Abx stopped due to C. Diff. Repeat chest x-ray 01/21 showed some improvement Incentive spirometry -Mucinex and Tessalon for symptomatic cough Hypertension: Continue home medication metoprolol Hyperlipidemia: Continue home medication pravastatin Prostate cancer with bone metastases He will follow-up with urologist at the [facility] for management as outpatient Patient was taking Xtandi 40mg daily, brought in medicine Fluids: Adequate PO intake Electrolytes: monitor and replete as needed Nutrition: Regular diet as tolerated GI prophylaxis: Daily IV Protonix (on p.o. Protonix at home) VTE prophylaxis: b/l SCDs (pharmacologic prophylaxis contraindicated due to hematuria) Disposition: Significant deconditioning, daily PT, they recommend PT at rehab. He is originally preferred to go home with home health, however after discussing there is likely not safe for him to be at home due to his significant deconditioning he is okay with going to rehab. He went to [facility] for rehab recently, and does not want to go back there. <Zhao Brian - 01/23/19 13:54> - Attending Attestation The exam, history, and the medical decision-making described in the above note were completed with the assistance of the resident physician. I reviewed and agree with the findings presented. I attest that I had a [id number] encounter with the patient on the same day, and personally performed and documented my assessment and findings in the medical record. have difficulty with his choosing a rehab. she blames [facility] for his ileus. I explained that ileus is random and people can get it anytime and that a rehab cannot cause an ileus. <Pat Blas - 01/25/19 11:42>
[2019-01-23] MEDS: Mirtazapine 15 MG Tablet PO SCH (21:56)
[2019-01-24] MEDS: Benzonatate 100 MG Capsule PO SCH ×3 (02:29→17:34)
--- NOTE | 2019-01-24 08:46 | P.PNFP ---
Subjective Interval history: No acute events overnight. Patient doing well this morning. Still has cough, but states that the tessalon pearls and mucinex is making it better Patient is interested in going to SNF for rehab, will work with case checker States that he is no longer having diarrhea Tolerating diet Denies fevers, CP, SOB, abdominal pain and N/V <Obinna ClaireLorraine T - 01/24/19 15:45> Results - Labs Result diagrams: 01/25/19 06:46 01/25/19 06:46 <Pat Blas M - 01/25/19 11:45> Abnormal lab results 01/24/19 01/25/19 01/25/19 Range/Units 10:45 06:46 06:46 RBC 2.98 L (4.50-5.90) mil/mm3 Hgb 9.1 L (13.0-17.0) gm/dL Hct 26.3 L (39.0-51.0) % MPV 6.8 L (7.0-11.0) fL Platelet Estimate High H (Normal) Chloride 108 H (98-107) meq/L Anion Gap 4 L (5-15) meq/L Estimated GFR 69 L (>89) mL/min Calcium 7.4 L* (8.5-10.1) mg/dL Albumin 1.6 L (3.4-5.0) g/dL Short CBC 01/25/19 Range/Units 06:46 WBC 5.2 (4.0-11.0) th/mm3 Hgb 9.1 L (13.0-17.0) gm/dL Hct 26.3 L (39.0-51.0) % Plt Count 437 (150-450) th/mm3 [facility] 01/25/19 06:46 Sodium 139 Potassium 3.9 Chloride 108 H Carbon Dioxide 26.7 BUN 11 Creatinine 1.02 Calcium 7.4 L* Liver Function 01/25/19 Range/Units 06:46 Albumin 1.6 L (3.4-5.0) g/dL <Pat Blas - 01/25/19 11:45> Abnormal lab results 01/23/19 Range/Units 07:25 Estimated GFR 75 L (>89) mL/min Random Glucose 71 L (74-106) mg/dL Calcium 7.6 L (8.5-10.1) mg/dL BMP 01/23/19 07:25 Sodium 137 Potassium 3.9 Chloride 106 Carbon Dioxide 22.1 BUN 17 Creatinine 0.95 Calcium 7.6 L <Obinna RangelLorraineemerita Benites T - 01/24/19 08:46> Physical Exam Vital signs: Vital Signs 01/24/19 16:00 01/24/19 16:15 01/24/19 20:00 Temperature 98 F 98.1 F Pulse Rate 106 H 107 H Respiratory Rate 16 17 Blood Pressure 89/52 L 93/52 L 117/57 L Pulse Oximetry 96 96 01/24/19 21:10 01/25/19 00:00 01/25/19 04:00 Temperature 97.9 F 98.4 F Pulse Rate 99 H 102 H Respiratory Rate 15 17 Blood Pressure 98/54 L 108/62 Pulse Oximetry 95 98 94 L 01/25/19 08:00 01/25/19 08:24 01/25/19 08:27 Temperature 97.4 F L Pulse Rate 97 H 98 H Respiratory Rate 18 22 Blood Pressure 108/56 L Pulse Oximetry 95 95 Intake & Output 01/24/19 01/25/19 01/25/19 18:59 06:59 18:59 Intake Total 1220 / 1220 Output Total 950 / 950 6850 / 6850 Balance 270 / 270 -6850 / -6850 Weight 70.5 kg Intake: IV 500 / 500 NS Inj 500 ML @ 1000 mls/hr IV. 500 / 500 SIG BOLUS [facility] Rx#:[id number] Oral 720 / 720 Output: Urine Amount (Catheter) 950 / 950 6850 / 6850 3-way Urethral 950 / 950 6850 / 6850 Other: Bladder Irrigation Fluid - Amount Instilled 3-way Urethral 6,000 Bladder Irrigation Fluid - Amount Drained 3-way Urethral 6,950 Date of Last Bowel Movement 01/22/19 <Pat Blas - 01/25/19 11:45> Vital Signs 01/23/19 13:40 01/23/19 16:56 01/23/19 20:00 Temperature 98.0 F 97.8 F 97.9 F Pulse Rate 100 H 112 H 107 H Respiratory Rate 18 18 15 Blood Pressure 104/55 L 105/61 105/60 Pulse Oximetry 96 96 96 01/24/19 00:00 01/24/19 04:00 01/24/19 08:00 Temperature 98 F 98.9 F 97.6 F Pulse Rate 101 H 98 H 102 H Respiratory Rate 18 15 17 Blood Pressure 95/54 L 100/74 104/54 L Pulse Oximetry 98 96 95 Intake & Output 01/23/19 01/24/19 01/24/19 18:59 06:59 18:59 Intake Total 720 / 720 Output Total 4225 / 4225 2024 Balance -3505 / -350 -2024 Weight 70.8 kg Intake: Oral 720 / 720 Output: Urine 1450 / 1450 Urine Amount (Catheter) 4225 / 4225 575 / 575 3-way Urethral 4225 / 4225 575 / 575 Other: Bladder Irrigation Fluid - Amount Instilled 3-way Urethral 3,450 5,700 Bladder Irrigation Fluid - Amount Drained 3-way Urethral 5,125 Date of Last Bowel Movement 01/22/19 01/22/19 <Lorraine Jay 01/24/19 08:46> Narrative: General: Elderly male, no acute distress. Sitting in chair. Eyes: EOMI, anicteric scleral, no conjunctival injection ENT: Atraumatic, MMM Neck: Trachea midline, no masses Respiratory: normal respiratory effort, b/l decreased breath sounds and wet crackles. Cardiovascular: Regular rate and rhythm without murmur, 1+ pedal pulses, no peripheral edema Abdomen: Normal bowel sounds. Nontender, soft, no guarding or rebound. : Galvez catheter in place, clear urine Psychiatric: Alert and oriented. Normal affect. <Lorraine Jay 01/24/19 15:45> - Urinary Catheter Management 3-way Urethral Cath placed during this visit: no <Pat Blas 01/25/19 11:45> no <Lorraine Jay 01/24/19 15:45> Reason for continuing: Other continuation reason <Lorraine Jay 08:46> Indwelling Urethral Catheter Cath placed during this visit: no <Pat Blas 01/25/19 11:45> yes, but has since been removed by the nurse <Lorraine Jay 01/24/19 15:45> Urethral indwelling: Yes <Van R2Lorraine Benites T - 01/24/19 08:46> Reason for continuing: Gross Hematuria <Van R2,Lorraine Benites T 01/24/19 08:46> Insertion date: 01/09/19 <Van R2,Lorraine Benites T - 01/24/19 08:46> Insertion time: 17:35 <Van R2,Lorraine Benites T 01/24/19 08:46> Removal date: 01/09/19 <Van R2,Lorraine Benites T 01/24/19 08:46> Removal time: 17:30 <Van R2,Lorraine Benites T 01/24/19 08:46> Assessment and Plan - Assessment (1) Partial bowel obstruction Code(s): K56.600 - Partial intestinal obstruction, unspecified as to cause Status: Acute (2) Pneumonia Code(s): J18.9 - Pneumonia, unspecified organism Status: Acute (3) Complicated urinary tract infection Code(s): N39.0 - Urinary tract infection, site not specified Status: Acute (4) Gross hematuria Code(s): R31.0 - Gross hematuria Status: Resolved (5) Hypertension Code(s): I10 - Essential (primary) hypertension Status: Chronic (6) Prostate cancer Code(s): C61 - Malignant neoplasm of prostate Status: Chronic <Pat Blas - 01/25/19 11:45> (1) Partial bowel obstruction Code(s): K56.600 - Partial intestinal obstruction, unspecified as to cause Status: Acute Plan: (2) Pneumonia Code(s): J18.9 - Pneumonia, unspecified organism Status: Acute Plan: (3) Complicated urinary tract infection Code(s): N39.0 - Urinary tract infection, site not specified Status: Acute Plan: (4) Gross hematuria Code(s): R31.0 - Gross hematuria Status: Resolved Plan: (5) Hypertension Code(s): I10 - Essential (primary) hypertension Status: Chronic Plan: (6) Prostate cancer Code(s): C61 - Malignant neoplasm of prostate Status: Chronic Plan: <Van Lorraine Rangel T - 01/24/19 15:43> - Assessment and Plan He is an 83-year-old male with a history of prostate cancer admitted with hematuria found to have a partial small bowel obstruction. Partial small bowel obstruction / ileus: Had multiple days with no bowel movements and worsening distention and nausea/vomiting on 01/11. KUB at that time showed an abnormal bowel gas pattern. He was put NPO, NG tube to suction, IV fluids. SBO . ileus resolved, he is currently having diarrhea now, NG tube was removed 01/19 he is on a regular diet and half speed TPN. General surgery consulted, patient was managed medically. They have signed off TPN was discontinued 01/22 Reglan 5mg IV q8h scheduled for nausea Zofran as needed for nausea Diarrhea secondary to C. difficile: Oral vancomycin started 01/21 Diarrhea resolved Complicated UTI with gross hematuria: Culture positive for Pseudomonas. Originally came in with hematuria, still has transient hematuria. On Flomax, hold oxybutynin H&H stable, will continue to follow Infection adequately treated with Levaquin. Levaquin stopped 01/22 due to C. difficile. Pneumonia: Resolved. Chest x-ray showing bilateral infiltrates on 01/11. Stable respiratory status, but has continued cough. Abx stopped due to C. Diff. Repeat chest x-ray 01/21 showed some improvement Incentive spirometry -Mucinex and Tessalon for symptomatic cough Hypertension: Continue home medication metoprolol Hyperlipidemia: Continue home medication pravastatin Prostate cancer with bone metastases He will follow-up with [facility]rologist [facility] for management as outpatient Patient was taking Xtandi 40mg daily, brought in medicine Fluids: Adequate PO intake Electrolytes: monitor and replete as needed Nutrition: Regular diet as tolerated GI prophylaxis: Daily IV Protonix (on p.o. Protonix at home) VTE prophylaxis: b/l SCDs (pharmacologic prophylaxis contraindicated due to hematuria) Disposition: Significant deconditioning, daily PT, they recommend PT at rehab. He is originally preferred to go home with home health, however after discussing there is likely not safe for him to be at home due to his significant deconditioning he is okay with going to rehab. He went to [facility] for rehab recently, and does not want to go back there. <Lorraine Jay - 01/24/19 15:45> - Attending Attestation The exam, history, and the medical decision-making described in the above note were completed with the assistance of the resident physician. I reviewed and agree with the findings presented. I attest that I had a [id number] encounter with the patient on the same day, and personally performed and documented my assessment and findings in the medical record. he is very weak and his knows he needs rehab. he wants to go to [facility] to rehab but his does not know the name of the place. <Pat Blas - 01/25/19 11:45>
[2019-01-24] MEDS: Lactobacillus Acidophilus/L. Spores Tablet PO SCH ×2 (10:44→21:09)
[2019-01-24] MEDS: Metoprolol Tartrate 25 MG Tablet PO SCH ×2 (10:45→21:09)
[2019-01-24] MEDS: Heparin Central Flush 100 UNIT/ML 5 ML Vial IV.FLUSH SCH (10:45)
[2019-01-24] MEDS: guaiFENesin 600 MG ER Tablet PO SCH ×2 (10:46→21:09)
[2019-01-24] MEDS: XTANDI 40 MG PO SCH (10:47)
[2019-01-24 11:23] LABS: Baso % (Auto) 0.6 % (0.0-2.0); Eos # (Auto) 0.6 th/mm3 (0.0-0.4); Eos % (Auto) 9.4 % (0.0-4.0); Hematocrit 30.7 % (39.0-51.0); Hemoglobin 10.4 gm/dL (13.0-17.0); Lymph # (Auto) 1.2 th/mm3 (1.0-4.8); Lymph % (Auto) 17.6 % (9.0-44.0); Mean Corpuscular HGB Conc 34.1 % (32.0-36.0); Mean Corpuscular Hemoglobin 30.1 pg (27.0-34.0); Mean Corpuscular Volume 88.5 fL (80.0-100.0); Mean Platelet Volume 7.4 fL (7.0-11.0); Mono % (Auto) 14.8 % (0.0-8.0); Neut # (Auto) 3.9 th/mm3 (1.8-7.7); Neut % (Auto) 57.6 % (16.0-70.0); Platelet Count 549 th/mm3 (150-450); Red Blood Count 3.47 mil/mm3 (4.50-5.90); Red Cell Distribution Width 15.4 % (11.6-17.2); White Blood Count 6.8 th/mm3 (4.0-11.0)
[2019-01-24 11:42] LABS: Calcium 7.8 mg/dL (8.5-10.1); Carbon Dioxide 23.3 meq/L (21.0-32.0); Potassium 3.6 meq/L (3.5-5.1)
[2019-01-24 12:07] LABS: Platelet Morphology Normal (Normal)
[2019-01-24] MEDS: Pantoprazole Inj 40 MG Vial IV.PUSH SCH (13:12)
[2019-01-24] MEDS ORDERED: Sodium Chlor 0.9% Inj 500 ML IV.SIG SCH (16:44)
[2019-01-24] MEDS: Mirtazapine 15 MG Tablet PO SCH (21:08)
[2019-01-25] MEDS: Benzonatate 100 MG Capsule PO SCH ×3 (02:14→17:48)
[2019-01-25 07:01] LABS: Hematocrit 26.3 % (39.0-51.0); Hemoglobin 9.1 gm/dL (13.0-17.0); Mean Corpuscular HGB Conc 34.6 % (32.0-36.0); Mean Corpuscular Hemoglobin 30.5 pg (27.0-34.0); Mean Platelet Volume 6.8 fL (7.0-11.0); Platelet Count 437 th/mm3 (150-450); Red Blood Count 2.98 mil/mm3 (4.50-5.90); Red Cell Distribution Width 15.2 % (11.6-17.2); White Blood Count 5.2 th/mm3 (4.0-11.0)
[2019-01-25 07:35] LABS: Calcium 7.4 mg/dL (8.5-10.1); Carbon Dioxide 26.7 meq/L (21.0-32.0); Potassium 3.9 meq/L (3.5-5.1)
[2019-01-25 07:42] LABS: Albumin 1.6 g/dL (3.4-5.0); Calcium-Albumin Corrected 9.3 mg/dL (8.5-10.1)
[2019-01-25] MEDS: Heparin Central Flush 100 UNIT/ML 5 ML Vial IV.FLUSH SCH (09:29)
[2019-01-25] MEDS: XTANDI 40 MG PO SCH (09:29)
[2019-01-25] MEDS: guaiFENesin 600 MG ER Tablet PO SCH ×2 (09:29→21:40)
[2019-01-25] MEDS: Metoprolol Tartrate 25 MG Tablet PO SCH ×2 (09:29→21:39)
[2019-01-25] MEDS: Lactobacillus Acidophilus/L. Spores Tablet PO SCH ×2 (09:29→21:37)
--- NOTE | 2019-01-25 12:00 | P.PNFP ---
Subjective Interval history: There are no acute events overnight. He denies any new complaints. He reports that he still feels weak, and that he continues to have intermittent hematuria. He reports that his appetite has improved, but is still not completely normal. He denies lightheadedness, dizziness, chest pain, shortness of breath. He is agreeable to going to rehab at this point. <Kayode Zhao Garg - 01/25/19 12:00> Results - Labs Result diagrams: 01/26/19 06:25 01/27/19 04:51 <Pat Blas - 01/27/19 15:20> Abnormal lab results 01/27/19 Range/Units 04:51 Chloride 109 H (98-107) meq/L Creatinine 1.41 H (0.60-1.30) mg/dL Estimated GFR 48 L (>89) mL/min Random Glucose 115 H (74-106) mg/dL Calcium 7.9 L (8.5-10.1) mg/dL BMP 01/27/19 04:51 Sodium 141 Potassium 4.7 Chloride 109 H Carbon Dioxide 24.8 BUN 18 Creatinine 1.41 H Calcium 7.9 L <Pat Blas - 01/27/19 15:20> Abnormal lab results 01/24/19 01/25/19 01/25/19 Range/Units 10:45 06:46 06:46 RBC 2.98 L (4.50-5.90) mil/mm3 Hgb 9.1 L (13.0-17.0) gm/dL Hct 26.3 L (39.0-51.0) % MPV 6.8 L (7.0-11.0) fL Platelet Estimate High H (Normal) Chloride 108 H (98-107) meq/L Anion Gap 4 L (5-15) meq/L Estimated GFR 69 L (>89) mL/min Calcium 7.4 L* (8.5-10.1) mg/dL Albumin 1.6 L (3.4-5.0) g/dL Short CBC 01/25/19 Range/Units 06:46 WBC 5.2 (4.0-11.0) th/mm3 Hgb 9.1 L (13.0-17.0) gm/dL Hct 26.3 L (39.0-51.0) % Plt Count 437 (150-450) th/mm3 BMP 01/25/19 06:46 Sodium 139 Potassium 3.9 Chloride 108 H Carbon Dioxide 26.7 BUN 11 Creatinine 1.02 Calcium 7.4 L* Liver Function 01/25/19 Range/Units 06:46 Albumin 1.6 L (3.4-5.0) g/dL <Kayode Zhao Garg - 01/25/19 12:00> Physical Exam Vital signs: Vital Signs 01/26/19 16:05 01/26/19 16:15 01/26/19 16:30 Temperature 97.6 F 97.8 F Pulse Rate 100 H 92 H 84 Respiratory Rate 20 21 21 Blood Pressure 172/117 H 118/56 L 108/52 L Pulse Oximetry 93 L 98 99 01/26/19 20:00 01/27/19 00:00 01/27/19 04:00 Temperature 98.8 F 99.3 F 99.3 F Pulse Rate 105 H 97 H 111 H Respiratory Rate 16 16 16 Blood Pressure 105/58 L 111/57 L 116/58 L Pulse Oximetry 95 94 L 97 01/27/19 07:15 01/27/19 08:00 01/27/19 10:45 Temperature 100.9 F H 99 F Pulse Rate 116 H Respiratory Rate 16 Blood Pressure 121/51 L Pulse Oximetry 93 L 94 L 01/27/19 11:52 01/27/19 13:30 Temperature 99.6 F 98.7 F Pulse Rate 112 H Respiratory Rate 14 Blood Pressure 97/57 L Pulse Oximetry 93 L Intake & Output 01/26/19 01/27/19 01/27/19 18:59 06:59 18:59 Intake Total 950 / 950 240 / 240 Output Total 315 / 315 550 / 550 Balance 635 / 635 -310 / -310 Weight 69.8 kg Intake: Oral 240 / 240 Anesthesia Amount 950 / 950 Output: Urine 550 / 550 Estimated Blood Loss Urine Amount (Catheter) 300 / 300 Indwelling Urethral Catheter 300 / 300 Other: Date of Last Bowel Movement 01/25/19 01/25/19 01/26/19 <Pat Blas - 01/27/19 15:20> Vital Signs 01/24/19 16:00 01/24/19 16:15 01/24/19 20:00 Temperature 98 F 98.1 F Pulse Rate 106 H 107 H Respiratory Rate 16 17 Blood Pressure 89/52 L 93/52 L 117/57 L Pulse Oximetry 96 96 01/24/19 21:10 01/25/19 00:00 01/25/19 04:00 Temperature 97.9 F 98.4 F Pulse Rate 99 H 102 H Respiratory Rate 15 17 Blood Pressure 98/54 L 108/62 Pulse Oximetry 95 98 94 L 01/25/19 08:00 01/25/19 08:24 01/25/19 08:27 Temperature 97.4 F L Pulse Rate 97 H 98 H Respiratory Rate 18 22 Blood Pressure 108/56 L Pulse Oximetry 95 95 Intake & Output 01/24/19 01/25/19 01/25/19 18:59 06:59 18:59 Intake Total 1220 / 1220 Output Total 950 / 950 6850 / 6850 Balance 270 / 270 -6850 / -6850 Weight 70.5 kg Intake: IV 500 / 500 NS Inj 500 ML @ 1000 mls/hr IV. 500 / 500 SIG BOLUS [facility] Rx#:[id number] Oral 720 / 720 Output: Urine Amount (Catheter) 950 / 950 6850 / 6850 3-way Urethral 950 / 950 6850 / 6850 Other: Bladder Irrigation Fluid - Amount Instilled 3-way Urethral 6,000 Bladder Irrigation Fluid - Amount Drained 3-way Urethral 6,950 Date of Last Bowel Movement 01/22/19 <Zhao Brian - 01/25/19 12:00> Narrative: General: Elderly male, no acute distress. Eyes: EOMI, anicteric scleral, no conjunctival injection ENT: Atraumatic, MMM Neck: Trachea midline, no masses Respiratory: normal respiratory effort, mild b/l decreased breath sounds and wet crackles. Cardiovascular: Regular rate and rhythm without murmur, 1+ pedal pulses, no peripheral edema Abdomen: Normal bowel sounds. Nontender, soft, no guarding or rebound. : Galvez catheter in place, pink urine Psychiatric: Alert and oriented. Normal affect. <Zhao Brian - 01/25/19 12:00> - Urinary Catheter Management 3-way Urethral Cath placed during this visit: no <Pat Blas - 01/27/19 15:20> no <Stagliano R1Lindsays Elizabeth - 01/25/19 12:00> Reason for continuing: Gross Hematuria <Stagliano R1SachinZhao Elizabeth - 01/25/19 12: 00> Indwelling Urethral Catheter Cath placed during this visit: no <Pat Blas - 01/27/19 15:20> yes, but has since been removed by the nurse <Sharongliano R1Zhao - 01/25/19 12:00> Urethral indwelling: Yes <Stagliano R1Lindsays Elizabeth - 01/25/19 12:00> Reason for continuing: Gross Hematuria <Stagliano R1SachinZhao Elizabeth - 01/25/19 12: 00> Insertion date: 01/09/19 <Stagliano R1Lindsays Elizabeth - 01/25/19 12:00> Insertion time: 17:35 <Stagliano R1Lindsays Elizabeth - 01/25/19 12:00> Removal date: 01/09/19 <Stagliano R1Lindsays Elizabeth - 01/25/19 12:00> Removal time: 17:30 <Stagliano R1SachinZhao J - 01/25/19 12:00> Assessment and Plan - Assessment (1) Partial bowel obstruction Code(s): K56.600 - Partial intestinal obstruction, unspecified as to cause Status: Acute (2) Pneumonia Code(s): J18.9 - Pneumonia, unspecified organism Status: Acute (3) Complicated urinary tract infection Code(s): N39.0 - Urinary tract infection, site not specified Status: Acute (4) Gross hematuria Code(s): R31.0 - Gross hematuria Status: Resolved (5) Hypertension Code(s): I10 - Essential (primary) hypertension Status: Chronic (6) Prostate cancer Code(s): C61 - Malignant neoplasm of prostate Status: Chronic (7) Ulcer of sacral region, stage 1 Code(s): L98.429 - Non-pressure chronic ulcer of back with unspecified severity Status: Acute <Pat Blas - 01/27/19 15:20> (1) Partial bowel obstruction Code(s): K56.600 - Partial intestinal obstruction, unspecified as to cause Status: Acute Plan: (2) Pneumonia Code(s): J18.9 - Pneumonia, unspecified organism Status: Acute Plan: (3) Complicated urinary tract infection Code(s): N39.0 - Urinary tract infection, site not specified Status: Acute Plan: (4) Gross hematuria Code(s): R31.0 - Gross hematuria Status: Resolved Plan: (5) Hypertension Code(s): I10 - Essential (primary) hypertension Status: Chronic Plan: (6) Prostate cancer Code(s): C61 - Malignant neoplasm of prostate Status: Chronic Plan: <Sharonjaime Zhao Garg J - 01/25/19 11:50> - Assessment and Plan He is an 83-year-old male with a history of prostate cancer admitted with hematuria found to have a partial small bowel obstruction which has now resolved. Partial small bowel obstruction / ileus: Had multiple days with no bowel movements and worsening distention and nausea/vomiting on 01/11. KUB at that time showed an abnormal bowel gas pattern. He was put NPO, NG tube to suction, IV fluids. SBO . ileus resolved, he is currently having diarrhea now, NG tube was removed 01/19 he is on a regular diet and half speed TPN. General surgery consulted, patient was managed medically. They have signed off TPN was discontinued 01/22 Reglan and Zofran as needed for nausea Prostate cancer with bone metastases He will follow-up with [facility]rologist [facility] for management as outpatient Patient was taking Xtandi 40mg daily, brought in medicine He has had continued issues with intermittent hematuria. He has been on continuous bladder irrigation with a 20-gauge three-way Galvez. He has had intermittent clogging of this. I spoke with urology today (Dr. Barnes) who recommended replacing the Galvez with a normal 20-gauge Galvez to decrease the chance of obstruction. Diarrhea secondary to C. difficile: Oral vancomycin started 01/21 Diarrhea resolved Complicated UTI with gross hematuria: Culture positive for Pseudomonas. Originally came in with hematuria, still has transient hematuria. On Flomax, hold oxybutynin H&H stable, will continue to follow Infection adequately treated with Levaquin. Levaquin stopped 01/22 due to C. difficile. Pneumonia: Resolved. Chest x-ray showing bilateral infiltrates on 01/11. Stable respiratory status, but has continued cough. Abx stopped due to C. Diff. Repeat chest x-ray 01/21 showed some improvement Incentive spirometry -Mucinex and Tessalon for symptomatic cough Hypertension: Continue home medication metoprolol Hyperlipidemia: Continue home medication pravastatin Fluids: Adequate PO intake Electrolytes: monitor and replete as needed Nutrition: Regular diet as tolerated GI prophylaxis: Daily IV Protonix (on p.o. Protonix at home) VTE prophylaxis: b/l SCDs (pharmacologic prophylaxis contraindicated due to hematuria) Disposition: Significant deconditioning, daily PT, they recommend PT at rehab. He is originally preferred to go home with home health, however after discussing there is likely not safe for him to be at home due to his significant deconditioning he is okay with going to rehab. He and his have been struggling to pick out a rehab that he wants to go to. <Zhao Brian - 01/25/19 12:00> - Attending Attestation The exam, history, and the medical decision-making described in the above note were completed with the assistance of the resident physician. I reviewed and agree with the findings presented. I attest that I had a [id number] encounter with the patient on the same day, and personally performed and documented my assessment and findings in the medical record. he is very concerned about his urinary bleeding. he is stuck for now with a chronic catheter. he wishes Urology to assist him with this <Pat Blas - 01/27/19 15:20>
[2019-01-25] MEDS: Pantoprazole Inj 40 MG Vial IV.PUSH SCH (14:29)
[2019-01-25] MEDS: Morphine Inj 4 MG/ML Vial IV.PUSH PRN ×2 (14:30→17:44)
--- NOTE | 2019-01-25 15:57 | P.PNURO ---
Subjective Patient symptoms today: Patient with recurrent gross hematuria with clots. CBI was started but has not been running well. Reconsulted regarding further recommendations. Objective Vital Signs: Vital Signs 01/24/19 16:00 01/24/19 16:15 01/24/19 20:00 Temperature 98 F 98.1 F Pulse Rate 106 H 107 H Respiratory Rate 16 17 Blood Pressure 89/52 L 93/52 L 117/57 L Pulse Oximetry 96 96 01/24/19 21:10 01/25/19 00:00 01/25/19 04:00 Temperature 97.9 F 98.4 F Pulse Rate 99 H 102 H Respiratory Rate 15 17 Blood Pressure 98/54 L 108/62 Pulse Oximetry 95 98 94 L 01/25/19 08:00 01/25/19 08:24 01/25/19 08:27 Temperature 97.4 F L Pulse Rate 97 H 98 H Respiratory Rate 18 22 Blood Pressure 108/56 L Pulse Oximetry 95 95 01/25/19 12:00 Temperature 98 F Pulse Rate 108 H Respiratory Rate 18 Blood Pressure 142/63 H Pulse Oximetry 97 Intake & Output 01/24/19 01/25/19 01/25/19 18:59 06:59 18:59 Intake Total 1220 / 1220 Output Total 950 / 950 6850 / 6850 Balance 270 / 270 -6850 / -6850 Weight 70.5 kg Intake: IV 500 / 500 NS Inj 500 ML @ 1000 mls/hr IV. 500 / 500 SIG BOLUS [facility] Rx#:[id number] Oral 720 / 720 Output: Urine Amount (Catheter) 950 / 950 6850 / 6850 3-way Urethral 950 / 950 6850 / 6850 Other: Bladder Irrigation Fluid - Amount Instilled 3-way Urethral 6,000 Bladder Irrigation Fluid - Amount Drained 3-way Urethral 6,950 Date of Last Bowel Movement 01/22/19 Result Diagrams: 01/25/19 06:46 01/25/19 06:46 Procedures: CBI catheter replaced with a 20 Tajik 2-way Kevin and bladder irrigated with copious amount of sterile water until all clots were retrieved. Subsequent urine output medium red in color. Medications and IVs: Active Medications Generic Name Dose Route Start Last Admin Trade Name Freq PRN Reason Stop Dose Admin Albuterol 1 ampul 01/21/19 11:15 01/25/19 08:18 Duoneb Neb (Prn) NEB 1 ampul Q6HR WHILE AWAKE NEB PRN Administration SHORTNESS OF BREATH/WHEEZING Benzonatate 100 mg 01/22/19 10:30 01/25/19 09:30 Tessalon Perles PO 100 mg Q8H GEORGE Administration Bisacodyl 10 mg 01/06/19 15:08 01/11/19 04:53 Dulcolax Supp RECTAL 10 mg DAILY PRN Administration SEVERE CONSITIPATION Cyanocobalamin 1,000 mcg 01/07/19 09:00 01/25/19 09:29 Vitamin B12 PO 1,000 mcg DAILY GEORGE Administration Guaifenesin 600 mg 01/22/19 10:30 01/25/19 09:29 Mucinex Er PO 600 mg BID GEORGE Administration Heparin Sodium (Porcine) 0 unit 01/18/19 09:00 01/25/19 09:29 Heparin Central Flush IV.FLUSH 500 unit DAILY GEORGE Administration Heparin Sodium (Porcine) 0 unit 01/17/19 18:06 01/22/19 20:05 Heparin Central Flush IV.FLUSH 400 unit PRN PRN Administration Flush PICC Line Lactobacillus Acidophilus 2 tab 01/07/19 09:00 01/25/19 09:29 Lactinex PO 2 tab BID GEORGE Administration Metoclopramide HCl 5 mg 01/25/19 11:57 Reglan Inj IV.SIG Q8H PRN NAUSEA Protocol Metoprolol Tartrate 12.5 mg 01/07/19 09:00 01/25/19 09:29 Lopressor PO 12.5 mg BID GEORGE Administration Mirtazapine 30 mg 01/21/19 21:00 01/24/19 21:08 Remeron PO 30 mg HS GEORGE Administration Morphine Sulfate 2 mg 01/18/19 20:35 01/25/19 14:30 Morphine Inj IV.PUSH 2 mg Q3H PRN Administration PAIN SCALE 7 TO 10 SEVERE Naloxone HCl 0.4 mg 01/06/19 15:08 Narcan Inj IV.PUSH UNSCH PRN SEE LABEL COMMENTS Pantoprazole Sodium 40 mg 01/14/19 12:00 01/25/19 14:29 Protonix Inj IV.PUSH 40 mg Q24H GEORGE Administration Xtandi 40mg Capsule 4 each 01/21/19 09:00 01/25/19 09:29 PO Not Given DAILY GEORGE Pravastatin Sodium 40 mg 01/07/19 21:00 01/24/19 21:10 Pravachol PO 40 mg HS GEORGE Administration Sodium Chloride 0 ml 01/18/19 09:00 01/25/19 09:30 Ns Flush IV.FLUSH 10 ml DAILY GEORGE Administration Sodium Chloride 0 ml 01/17/19 18:06 Ns Flush IV.FLUSH PRN PRN FLUSH AFTER USING IV ACCESS Sodium Chloride 0 ml 01/17/19 18:06 Ns Flush IV.FLUSH PRN PRN Flush After Blood Draws Sodium Chloride 2 ml 01/06/19 21:00 01/25/19 09:29 Ns Flush IV.FLUSH 2 ml BID GEORGE Administration Sodium Chloride 2 ml 01/06/19 15:08 01/24/19 02:31 Ns Flush IV.FLUSH 2 ml PRN PRN Administration FLUSH AFTER USING IV ACCESS Tamsulosin HCl 0.4 mg 01/07/19 18:00 01/24/19 17:34 Flomax PO 0.4 mg QPM GEORGE Administration Vancomycin HCl 125 mg 01/21/19 18:00 01/25/19 14:30 Vancomycin Po PO 125 mg QID GEORGE Administration Objective Remarks: Three-way Kevin catheter in place and not draining well. Medium red urine with clots noted in drainage tubing. Assessment and Plan - Assessment (1) Gross hematuria Code(s): R31.0 - Gross hematuria Status: Resolved (2) Prostate cancer Code(s): C61 - Malignant neoplasm of prostate Status: Chronic - Plan Urologic impression: 1. Metastatic prostate cancer with mild right hydronephrosis likely related to disease progression 2. Gross hematuria likely exacerbated by the presence of a UTI 3. Urinary tract infection Recommendations: 1. Agree with present management of urinary tract infection 2. Maintain Kevin catheter to gravity drainage and discharge patient home with Kevin even after the urine clears. 3. Patient to follow-up with his established oncologist over at the [facility] after hospital discharge 4. Patient will likely require cystoscopic evaluation sometime in the near future and this can be performed by urology over at the [facility] 01/09: Bladder bleeding, many clots, now removed, but still bleeding slowly. CBI started via 20 Fr. kevin catheter. Will order NPO after MN in case needs TUR cautery of bladder bleeding tomorrow by Dr. Scaglia. HGB low, receiving transfusion now. 01/10: Hematuria now resolved Continue with indwelling Kevin catheter to gravity drainage Resume cardiac diet Further recommendations as outlined above 01/25: Urologic impression: 1. Recurrent gross painless hematuria of indeterminate etiology 2. Metastatic prostate cancer being managed by oncology Plan: 1. Keep patient n.p.o. after midnight 2. We will proceed with cystoscopy and fulguration of any bleeding sites ( procedures scheduled for 1 PM tomorrow).
[2019-01-25] MEDS: Mirtazapine 15 MG Tablet PO SCH (21:38)
[2019-01-26] MEDS ORDERED: Chlorhexidine Gluconate 2% 1 Pack (2 Cloths) TOPICAL ONE (01:21)
[2019-01-26] MEDS ORDERED: Sodium Chlor 0.9% Inj 500 ML IV.SIG SCH (02:00)
[2019-01-26] MEDS: Benzonatate 100 MG Capsule PO SCH ×3 (02:51→18:02)
[2019-01-26 06:54] LABS: Baso # (Auto) 0.1 th/mm3 (0.0-0.2); Baso % (Auto) 1.2 % (0.0-2.0); Eos # (Auto) 0.5 th/mm3 (0.0-0.4); Eos % (Auto) 6.9 % (0.0-4.0); Hematocrit 27.9 % (39.0-51.0); Hemoglobin 9.6 gm/dL (13.0-17.0); Lymph % (Auto) 14.9 % (9.0-44.0); Mean Corpuscular HGB Conc 34.4 % (32.0-36.0); Mean Corpuscular Hemoglobin 30.6 pg (27.0-34.0); Mean Platelet Volume 6.9 fL (7.0-11.0); Mono # (Auto) 1.2 th/mm3 (0.0-0.9); Mono % (Auto) 17.5 % (0.0-8.0); Neut # (Auto) 4.1 th/mm3 (1.8-7.7); Neut % (Auto) 59.5 % (16.0-70.0); Platelet Count 481 th/mm3 (150-450); Red Blood Count 3.14 mil/mm3 (4.50-5.90); Red Cell Distribution Width 15.2 % (11.6-17.2); White Blood Count 6.9 th/mm3 (4.0-11.0)
[2019-01-26 07:21] LABS: Calcium 7.6 mg/dL (8.5-10.1); Potassium 4.4 meq/L (3.5-5.1)
[2019-01-26] MEDS: guaiFENesin 600 MG ER Tablet PO SCH ×2 (09:14→21:27)
[2019-01-26] MEDS: Lactobacillus Acidophilus/L. Spores Tablet PO SCH ×2 (09:14→21:27)
[2019-01-26] MEDS: Heparin Central Flush 100 UNIT/ML 5 ML Vial IV.FLUSH SCH (09:15)
[2019-01-26] MEDS: Metoprolol Tartrate 25 MG Tablet PO SCH ×2 (09:15→21:27)
[2019-01-26] MEDS: XTANDI 40 MG PO SCH (09:17)
--- NOTE | 2019-01-26 09:56 | P.PNFP ---
Subjective Interval history: There are no acute events overnight. He denies any new complaints. He has been eating some without nausea, vomiting, or diarrhea. Still feels weak and the hematuria is more more significant. He had clots during the day yesterday and his catheter was exchanged. He is now scheduled for cystoscopy today. He denies lightheadedness, dizziness, fever, chills, chest pain, shortness of breath, abdominal pain. <Kayode GargLindsaycuba Johnson - 01/26/19 09:56> Results - Labs Result diagrams: 01/26/19 06:25 01/27/19 04:51 <Pat Blas - 01/27/19 15:24> Abnormal lab results 01/27/19 Range/Units 04:51 Chloride 109 H (98-107) meq/L Creatinine 1.41 H (0.60-1.30) mg/dL Estimated GFR 48 L (>89) mL/min Random Glucose 115 H (74-106) mg/dL Calcium 7.9 L (8.5-10.1) mg/dL BMP 01/27/19 04:51 Sodium 141 Potassium 4.7 Chloride 109 H Carbon Dioxide 24.8 BUN 18 Creatinine 1.41 H Calcium 7.9 L <Pat Blas - 01/27/19 15:24> Abnormal lab results 01/26/19 01/26/19 Range/Units 06:25 06:25 RBC 3.14 L (4.50-5.90) mil/mm3 Hgb 9.6 L (13.0-17.0) gm/dL Hct 27.9 L (39.0-51.0) % Plt Count 481 H (150-450) th/mm3 MPV 6.9 L (7.0-11.0) fL [place] % (Auto) 17.5 H (0.0-8.0) % Eos % (Auto) 6.9 H (0.0-4.0) % [place] # (Auto) 1.2 H (0.0-0.9) th/mm3 Eos # (Auto) 0.5 H (0.0-0.4) th/mm3 Creatinine 1.57 H (0.60-1.30) mg/dL Estimated GFR 42 L (>89) mL/min Random Glucose 108 H (74-106) mg/dL Calcium 7.6 L (8.5-10.1) mg/dL Short CBC 01/26/19 Range/Units 06:25 WBC 6.9 (4.0-11.0) th/mm3 Hgb 9.6 L (13.0-17.0) gm/dL Hct 27.9 L (39.0-51.0) % Plt Count 481 H (150-450) th/mm3 BMP 01/26/19 06:25 Sodium 139 Potassium 4.4 Chloride 107 Carbon Dioxide 24.0 BUN 17 Creatinine 1.57 H Calcium 7.6 L <Kayode Zhao Garg J - 01/26/19 09:56> Physical Exam Vital signs: Vital Signs 01/26/19 16:05 01/26/19 16:15 01/26/19 16:30 Temperature 97.6 F 97.8 F Pulse Rate 100 H 92 H 84 Respiratory Rate 20 21 21 Blood Pressure 172/117 H 118/56 L 108/52 L Pulse Oximetry 93 L 98 99 01/26/19 20:00 01/27/19 00:00 01/27/19 04:00 Temperature 98.8 F 99.3 F 99.3 F Pulse Rate 105 H 97 H 111 H Respiratory Rate 16 16 16 Blood Pressure 105/58 L 111/57 L 116/58 L Pulse Oximetry 95 94 L 97 01/27/19 07:15 01/27/19 08:00 01/27/19 10:45 Temperature 100.9 F H 99 F Pulse Rate 116 H Respiratory Rate 16 Blood Pressure 121/51 L Pulse Oximetry 93 L 94 L 01/27/19 11:52 01/27/19 13:30 Temperature 99.6 F 98.7 F Pulse Rate 112 H Respiratory Rate 14 Blood Pressure 97/57 L Pulse Oximetry 93 L Intake & Output 01/26/19 01/27/19 01/27/19 18:59 06:59 18:59 Intake Total 950 / 950 240 / 240 Output Total 315 / 315 550 / 550 Balance 635 / 635 -310 / -310 Weight 69.8 kg Intake: Oral 240 / 240 Anesthesia Amount 950 / 950 Output: Urine 550 / 550 Estimated Blood Loss Urine Amount (Catheter) 300 / 300 Indwelling Urethral Catheter 300 / 300 Other: Date of Last Bowel Movement 01/25/19 01/25/19 01/26/19 <RoxburyPat erickson Claribel - 01/27/19 15:24> Vital Signs 01/25/19 12:00 01/25/19 16:00 01/25/19 19:30 Temperature 98 F 98.8 F 99.9 F H Pulse Rate 108 H 122 H 124 H Respiratory Rate 18 18 20 Blood Pressure 142/63 H 140/69 100/58 L Pulse Oximetry 97 94 L 92 L 01/26/19 00:45 01/26/19 03:45 01/26/19 08:00 Temperature 98.7 F 98.7 F 97.8 F Pulse Rate 113 H 110 H 103 H Respiratory Rate 18 18 16 Blood Pressure 102/59 L 97/53 L 104/58 L Pulse Oximetry 95 94 L 93 L Intake & Output 01/25/19 01/26/19 01/26/19 18:59 06:59 18:59 Intake Total 480 / 480 Output Total 625 / 625 Balance 480 / 480 -625 / -625 Weight 66.8 kg Intake: Oral 480 / 480 Output: Urine Amount (Catheter) 625 / 625 Indwelling Temp Sensing 625 / 625 Catheter Other: Bladder Irrigation Fluid - Amount Instilled Indwelling Temp Sensing 75 Catheter Bladder Irrigation Fluid - Amount Drained 3-way Urethral 6,350 Indwelling Temp Sensing 75 Catheter Date of Last Bowel Movement 01/25/19 01/25/19 <Zhao Brian - 01/26/19 09:56> Narrative: General: Elderly male, no acute distress. Eyes: EOMI, anicteric scleral, no conjunctival injection ENT: Atraumatic, MMM Neck: Trachea midline, no masses Respiratory: normal respiratory effort, clear to auscultation bilaterally. Cardiovascular: Regular rate and rhythm without murmur, 1+ pedal pulses, no peripheral edema Abdomen: Normal bowel sounds. Nontender, soft, no guarding or rebound. : Galvez catheter in place, red urine Psychiatric: Alert and oriented. Normal affect. <Zhao Brian - 01/26/19 09:56> - Urinary Catheter Management 3-way Urethral Cath placed during this visit: no <WanPat Claribel - 01/27/19 15:24> no <Zhao Brian 01/26/19 17:02> Reason for continuing: Gross Hematuria <Sharongliano Zhao Garg 01/26/19 09: 56> Indwelling Temp Sensing Catheter Cath placed during this visit: no <Pat Blas 01/27/19 15:24> no <Zhao Brian 01/26/19 17:02> Indwelling Urethral Catheter Cath placed during this visit: no <Pat Blas 01/27/19 15:24> yes, but has since been removed by the nurse <SharonglZhao Davis 01/26/19 17:02> Urethral indwelling: Yes <Stagliano Zhao Garg 01/26/19 09:56> Reason for continuing: Gross Hematuria <SharonglZhao Davis 01/26/19 09: 56> Insertion date: 01/09/19 <Sharongliano Zhao Garg 01/26/19 09:56> Insertion time: 17:35 <Stagliano Zhao Garg 01/26/19 09:56> Removal date: 01/09/19 <Stagliano Zhao Garg 01/26/19 09:56> Removal time: 17:30 <Stagliano Zhao Garg 01/26/19 09:56> Assessment and Plan - Assessment (1) Partial bowel obstruction Code(s): K56.600 - Partial intestinal obstruction, unspecified as to cause Status: Acute (2) Pneumonia Code(s): J18.9 - Pneumonia, unspecified organism Status: Acute (3) Complicated urinary tract infection Code(s): N39.0 - Urinary tract infection, site not specified Status: Acute (4) Gross hematuria Code(s): R31.0 - Gross hematuria Status: Resolved (5) Hypertension Code(s): I10 - Essential (primary) hypertension Status: Chronic (6) Prostate cancer Code(s): C61 - Malignant neoplasm of prostate Status: Chronic (7) Ulcer of sacral region, stage 1 Code(s): L98.429 - Non-pressure chronic ulcer of back with unspecified severity Status: Acute <Pat Blas 01/27/19 15:24> (1) Partial bowel obstruction Code(s): K56.600 - Partial intestinal obstruction, unspecified as to cause Status: Acute Plan: (2) Pneumonia Code(s): J18.9 - Pneumonia, unspecified organism Status: Acute Plan: (3) Complicated urinary tract infection Code(s): N39.0 - Urinary tract infection, site not specified Status: Acute Plan: (4) Gross hematuria Code(s): R31.0 - Gross hematuria Status: Resolved Plan: (5) Hypertension Code(s): I10 - Essential (primary) hypertension Status: Chronic Plan: (6) Prostate cancer Code(s): C61 - Malignant neoplasm of prostate Status: Chronic Plan: <Kayode GargZhao Elizabeth - 01/26/19 16:59> - Assessment and Plan He is an 83-year-old male with a history of prostate cancer admitted with hematuria found to have a partial small bowel obstruction which has now resolved. Prostate cancer with bone metastases He will follow-up with urologist at the [facility] for management as outpatient Patient was taking Xtandi 40mg daily, brought in medicine He has had continued issues with intermittent hematuria. He has been on continuous bladder irrigation with a 20-gauge three-way Galvez. He has had intermittent clogging of this. I spoke with urology today (Dr. Barnes) who recommended replacing the Galvez with a normal 20-gauge Galvez to decrease the chance of obstruction. Plan for cystoscopy today with Dr. Barnes Diarrhea secondary to C. difficile: Oral vancomycin started 01/21 Diarrhea resolved Partial small bowel obstruction / ileus: Had multiple days with no bowel movements and worsening distention and nausea/vomiting on 01/11. KUB at that time showed an abnormal bowel gas pattern. He was put NPO, NG tube to suction, IV fluids. SBO . ileus resolved, he is currently having diarrhea now, NG tube was removed 01/19 he is on a regular diet and half speed TPN. General surgery consulted, patient was managed medically. They have signed off TPN was discontinued 01/22 Reglan and Zofran as needed for nausea Complicated UTI with gross hematuria: Culture positive for Pseudomonas. Originally came in with hematuria, still has transient hematuria. On Flomax, hold oxybutynin H&H stable, will continue to follow Infection adequately treated with Levaquin. Levaquin stopped 01/22 due to C. difficile. Pneumonia: Resolved. Chest x-ray showing bilateral infiltrates on 01/11. Stable respiratory status, but has continued cough. Abx stopped due to C. Diff. Repeat chest x-ray 01/21 showed some improvement Incentive spirometry -Mucinex and Tessalon for symptomatic cough Hypertension: Continue home medication metoprolol Hyperlipidemia: Continue home medication pravastatin Fluids: Adequate PO intake Electrolytes: monitor and replete as needed Nutrition: Regular diet as tolerated GI prophylaxis: on p.o. Protonix at home VTE prophylaxis: b/l SCDs (pharmacologic prophylaxis contraindicated due to hematuria) Disposition: Significant deconditioning, daily PT, they recommend PT at rehab. He is originally preferred to go home with home health, however after discussing there is likely not safe for him to be at home due to his significant deconditioning he is okay with going to rehab. He will likely go to a SNF tomorrow. <Zhao Brian - 01/26/19 17:02> - Attending Attestation The exam, history, and the medical decision-making described in the above note were completed with the assistance of the resident physician. I reviewed and agree with the findings presented. I attest that I had a [id number]-yeow encounter with the patient on the same day, and personally performed and documented my assessment and findings in the medical record. appreciate the help of Urology. <Pat Blas - 01/27/19 15:24>
[2019-01-26] MEDS ORDERED: Phenylephrine/NS 1000 MCG/10ML Syringe IV.PUSH ONE (13:56)
[2019-01-26] MEDS ORDERED: Lidocaine PF 1% Inj 5 ML Syringe OTHER ONE (13:56)
[2019-01-26] MEDS ORDERED: Sugammadex Inj 200 MG/2 ML Vial IV.PUSH ONE (15:41)
--- NOTE | 2019-01-26 15:49 | P.OP ---
- Preoperative Diagnosis (1) Gross hematuria - Postoperative Diagnosis (1) Hemorrhagic cystitis (2) Gross hematuria Date of procedure: 01/26/19 Procedure: Cystoscopy and fulguration of bleeding sites Anesthesia: GETA Surgeon: Anmol Barnes MD Estimated blood loss (mL): 10 Pathology: none sent Operation and Findings: Indication for procedures: Case of a pleasant 83-year-old gentleman with recurrent gross hematuria who presents now for additional urologic workup and management to include cystoscopy and fulguration of any bleeding sites. Operative procedures in detail: Patient was brought to the operating suite and placed supine on the OR table. He was then placed under general anesthesia. He was then repositioned in the dorsolithotomy position and prepped and draped in normal sterile fashion. After appropriate timeout was undertaken I proceeded with cystoscopic evaluation utilizing the rigid cystoscope with the 20 Turkish sheath and the 30 degree lens. The urethra was patent without stricture formation and the prostate was surgically absent. There was some oozing of blood noted at the bladder neck region and upon further advancement of the cystoscope within the urinary bladder there was diffuse oozing from the bladder wall consistent with hemorrhagic cystitis. Initially attempt was made to control the bleeding with the Bugbee electrode however this proved to be futile and the resectoscope with a 24 Turkish loop was then utilized. The bleeding sites were fulgurated with coagulation current until there was no evidence of any ongoing active oozing of blood. The resectoscope was then withdrawn and a 22 Turkish 10 cc Galvez catheter was placed and connected to gravity drainage. The patient tolerated the procedures without complications and was transferred to the PACU in satisfactory condition.
[2019-01-26] MEDS ORDERED: Labetalol HCl Inj 20 MG/4 ML Vial ONE (16:15)
[2019-01-26] MEDS ORDERED: *Meperidine Inj 25 MG/ML Vial PERIprocedural Use ONLY ONE (16:16)
[2019-01-26] MEDS ORDERED: fentaNYL Citrate Inj 100 MCG/2 ML Ampul ONE (16:20)
[2019-01-26] MEDS: Mirtazapine 15 MG Tablet PO SCH (21:28)
[2019-01-27] MEDS: Benzonatate 100 MG Capsule PO SCH ×3 (03:30→18:53)
[2019-01-27 06:11] LABS: Calcium 7.9 mg/dL (8.5-10.1); Carbon Dioxide 24.8 meq/L (21.0-32.0); Potassium 4.7 meq/L (3.5-5.1)
[2019-01-27] MEDS: Lactobacillus Acidophilus/L. Spores Tablet PO SCH ×2 (08:41→21:24)
[2019-01-27] MEDS: XTANDI 40 MG PO SCH ×2 (08:41→09:03)
[2019-01-27] MEDS: guaiFENesin 600 MG ER Tablet PO SCH ×2 (08:42→21:25)
[2019-01-27] MEDS: Metoprolol Tartrate 25 MG Tablet PO SCH ×2 (08:42→21:25)
[2019-01-27] MEDS: Heparin Central Flush 100 UNIT/ML 5 ML Vial IV.FLUSH SCH (08:44)
[2019-01-27] MEDS: Acetaminophen 325 MG Tablet PO PRN (10:54)
--- NOTE | 2019-01-27 10:57 | P.PNFP ---
Subjective Interval history: No acute events overnight. Patient had a temp of 100.9 this morning, suspecting this is related to atelectasis post surgery. Blood cultures negative so far. Encourage patient to use incentive spirometry. Currently on 3L NC. Denies CP, SOB, N/V, and abdominal pain. <Obinna Nery Rangelemerita Gastelum - 01/27/19 14:33> Results - Labs Result diagrams: 01/26/19 06:25 01/27/19 04:51 <Pat Blas M - 01/27/19 15:26> Abnormal lab results 01/27/19 Range/Units 04:51 Chloride 109 H (98-107) meq/L Creatinine 1.41 H (0.60-1.30) mg/dL Estimated GFR 48 L (>89) mL/min Random Glucose 115 H (74-106) mg/dL Calcium 7.9 L (8.5-10.1) mg/dL [facility] 01/27/19 04:51 Sodium 141 Potassium 4.7 Chloride 109 H Carbon Dioxide 24.8 BUN 18 Creatinine 1.41 H Calcium 7.9 L <Pat Blas - 01/27/19 15:26> Abnormal lab results 01/27/19 Range/Units 04:51 Chloride 109 H (98-107) meq/L Creatinine 1.41 H (0.60-1.30) mg/dL Estimated GFR 48 L (>89) mL/min Random Glucose 115 H (74-106) mg/dL Calcium 7.9 L (8.5-10.1) mg/dL [facility] 01/27/19 04:51 Sodium 141 Potassium 4.7 Chloride 109 H Carbon Dioxide 24.8 BUN 18 Creatinine 1.41 H Calcium 7.9 L <Obinna Nery Rangelemerita Benites T - 01/27/19 10:56> Physical Exam Vital signs: Vital Signs 01/26/19 16:05 01/26/19 16:15 01/26/19 16:30 Temperature 97.6 F 97.8 F Pulse Rate 100 H 92 H 84 Respiratory Rate 20 21 21 Blood Pressure 172/117 H 118/56 L 108/52 L Pulse Oximetry 93 L 98 99 01/26/19 20:00 01/27/19 00:00 01/27/19 04:00 Temperature 98.8 F 99.3 F 99.3 F Pulse Rate 105 H 97 H 111 H Respiratory Rate 16 16 16 Blood Pressure 105/58 L 111/57 L 116/58 L Pulse Oximetry 95 94 L 97 01/27/19 07:15 01/27/19 08:00 01/27/19 10:45 Temperature 100.9 F H 99 F Pulse Rate 116 H Respiratory Rate 16 Blood Pressure 121/51 L Pulse Oximetry 93 L 94 L 01/27/19 11:52 01/27/19 13:30 Temperature 99.6 F 98.7 F Pulse Rate 112 H Respiratory Rate 14 Blood Pressure 97/57 L Pulse Oximetry 93 L Intake & Output 01/26/19 01/27/19 01/27/19 18:59 06:59 18:59 Intake Total 950 / 950 240 / 240 Output Total 315 / 315 550 / 550 Balance 635 / 635 -310 / -310 Weight 69.8 kg Intake: Oral 240 / 240 Anesthesia Amount 950 / 950 Output: Urine 550 / 550 Estimated Blood Loss 15 / 15 Urine Amount (Catheter) 300 / 300 Indwelling Urethral Catheter 300 / 300 Other: Date of Last Bowel Movement 01/25/19 01/25/19 01/26/19 <Pat Blas - 01/27/19 15:26> Vital Signs 01/26/19 12:00 01/26/19 16:05 01/26/19 16:15 Temperature 97.7 F 97.6 F Pulse Rate 98 H 100 H 92 H Respiratory Rate 14 20 21 Blood Pressure 103/54 L 172/117 H 118/56 L Pulse Oximetry 94 L 93 L 98 01/26/19 16:30 01/26/19 20:00 01/27/19 00:00 Temperature 97.8 F 98.8 F 99.3 F Pulse Rate 84 105 H 97 H Respiratory Rate 21 16 16 Blood Pressure 108/52 L 105/58 L 111/57 L Pulse Oximetry 99 95 94 L 01/27/19 04:00 01/27/19 07:15 01/27/19 08:00 Temperature 99.3 F 100.9 F H Pulse Rate 111 H 116 H Respiratory Rate 16 16 Blood Pressure 116/58 L 121/51 L Pulse Oximetry 97 93 L 94 L 01/27/19 10:45 Temperature 99 F Pulse Rate Respiratory Rate Blood Pressure Pulse Oximetry Intake & Output 02/01/27/19 01/27/19 18:59 06:59 18:59 Intake Total 950 / 950 240 / 240 Output Total 315 / 315 550 / 550 Balance 635 / 635 -310 / -310 Weight 69.8 kg Intake: Oral 240 / 240 Anesthesia Amount 950 / 950 Output: Urine 550 / 550 Estimated Blood Loss Urine Amount (Catheter) 300 / 300 Indwelling Urethral Catheter 300 / 300 Other: Date of Last Bowel Movement 01/25/19 01/25/19 <Lorraine Jay 01/27/19 10:56> Narrative: General: Elderly male, no acute distress. Eyes: EOMI, anicteric scleral, no conjunctival injection ENT: Atraumatic, MMM Neck: Trachea midline, no masses Respiratory: normal respiratory effort, clear to auscultation bilaterally. Currently on 3 L NC Cardiovascular: Regular rate and rhythm without murmur, 1+ pedal pulses, no peripheral edema Abdomen: Normal bowel sounds. Nontender, soft, no guarding or rebound. : Kevin catheter in place, red urine Back. Sacral I ulcer noted Psychiatric: Alert and oriented. Normal affect. <Lorraine Jay 01/27/19 14:33> - Urinary Catheter Management 3-way Urethral Cath placed during this visit: no <WanPat 01/27/19 15:26> no <Lorraine Jay 01/27/19 14:33> Reason for continuing: Gross Hematuria <Lorraine Jay 01/27/19 10:56> Indwelling Temp Sensing Catheter Cath placed during this visit: no <Pat Blas 01/27/19 15:26> no <Lorraine Jay 01/27/19 14:33> Reason for continuing: Gross Hematuria <Lorraine Jay Benites 01/27/19 10:56> Indwelling Urethral Catheter Cath placed during this visit: no <WanPat 01/27/19 15:26> yes, but has since been removed by the nurse <Obinna RangelLorraine Benites 01/27/19 14:33> Urethral indwelling: Yes <Obinna RangelLorraine Benites 01/27/19 10:56> Reason for continuing: Gross Hematuria <Van R2Lorraine T - 01/27/19 10:56> Insertion date: 01/26/19 <Van R2,Lorraine Benites T - 01/27/19 10:56> Insertion time: 17:35 <Van R2,Lorraine Benites T - 01/27/19 10:56> Removal date: 01/09/19 <Van R2,Lorraine Benites T - 01/27/19 10:56> Removal time: 17:30 <Van R2,Lorraine Benites T - 01/27/19 10:56> Assessment and Plan - Assessment (1) Partial bowel obstruction Code(s): K56.600 - Partial intestinal obstruction, unspecified as to cause Status: Acute (2) Pneumonia Code(s): J18.9 - Pneumonia, unspecified organism Status: Acute (3) Complicated urinary tract infection Code(s): N39.0 - Urinary tract infection, site not specified Status: Acute (4) Gross hematuria Code(s): R31.0 - Gross hematuria Status: Resolved (5) Hypertension Code(s): I10 - Essential (primary) hypertension Status: Chronic (6) Prostate cancer Code(s): C61 - Malignant neoplasm of prostate Status: Chronic (7) Ulcer of sacral region, stage 1 Code(s): L98.429 - Non-pressure chronic ulcer of back with unspecified severity Status: Acute <Pat Blas - 01/27/19 15:26> (1) Partial bowel obstruction Code(s): K56.600 - Partial intestinal obstruction, unspecified as to cause Status: Acute Plan: (2) Pneumonia Code(s): J18.9 - Pneumonia, unspecified organism Status: Acute Plan: (3) Complicated urinary tract infection Code(s): N39.0 - Urinary tract infection, site not specified Status: Acute Plan: (4) Gross hematuria Code(s): R31.0 - Gross hematuria Status: Resolved Plan: (5) Hypertension Code(s): I10 - Essential (primary) hypertension Status: Chronic Plan: (6) Prostate cancer Code(s): C61 - Malignant neoplasm of prostate Status: Chronic Plan: (7) Ulcer of sacral region, stage 1 Code(s): L98.429 - Non-pressure chronic ulcer of back with unspecified severity Status: Acute <Lorraine Jay T - 01/27/19 14:24> - Assessment and Plan He is an 83-year-old male with a history of prostate cancer admitted with hematuria found to have a partial small bowel obstruction which has now resolved. Prostate cancer with bone metastases He will follow-up with urologist at the [facility] for management as outpatient Patient was taking Xtandi 40mg daily, brought in medicine -Leave kevin catheter indwelling for minimum period of 1 week prior to removal for voiding trail. If patient has problems with ongoing gross hematuria in the future should consider hyperbaric oxygen therapy. Diarrhea secondary to C. difficile: Oral vancomycin started 01/21 for 10-14 days Diarrhea resolved Partial small bowel obstruction / ileus: Had multiple days with no bowel movements and worsening distention and nausea/vomiting on 01/11. KUB at that time showed an abnormal bowel gas pattern. He was put NPO, NG tube to suction, IV fluids. SBO . ileus resolved, he is currently having diarrhea now, NG tube was removed 01/19 he is on a regular diet and half speed TPN. General surgery consulted, patient was managed medically. They have signed off TPN was discontinued 01/22 Reglan and Zofran as needed for nausea Complicated UTI with gross hematuria: Culture positive for Pseudomonas. Originally came in with hematuria, still has transient hematuria. On Flomax, hold oxybutynin H&H stable, will continue to follow -Blood cultures NGTD Infection adequately treated with Levaquin. Levaquin stopped 01/22 due to C. difficile. Pneumonia: Resolved. Chest x-ray showing bilateral infiltrates on 01/11. Repeat chest x-ray 01/21 showed some improvement Incentive spirometry -Mucinex and Tessalon for symptomatic cough Hypertension: Continue home medication metoprolol Hyperlipidemia: Continue home medication pravastatin Sacral Ulcer-Stage 1 -Vaseline -Sacral pad daily Fluids: Adequate PO intake Electrolytes: monitor and replete as needed Nutrition: Regular diet as tolerated GI prophylaxis: on p.o. Protonix at home VTE prophylaxis: b/l SCDs (pharmacologic prophylaxis contraindicated due to hematuria) Disposition: Significant deconditioning, daily PT, they recommend PT at rehab. He is originally preferred to go home with home health, however after discussing there is likely not safe for him to be at home due to his significant deconditioning he is okay with going to rehab. <Obinna RangelLorraine T - 01/27/19 14:33> - Attending Attestation The exam, history, and the medical decision-making described in the above note were completed with the assistance of the resident physician. I reviewed and agree with the findings presented. I attest that I had a [id number] encounter with the patient on the same day, and personally performed and documented my assessment and findings in the medical record. he has not been good about getting up or being active. he had chills last night and has no specific complaints today. he does have a stage 1 decub[address] so will place a bandage on there for cushioning. he needs to go to rehab but will watch him to be sure he is not having any further problems today. his WBC is fine <Pat Blas - 01/27/19 15:26>
[2019-01-27] MEDS ORDERED: Petrolatum Oint 30 GM Tube TOPICAL SCH (11:00)
--- NOTE | 2019-01-27 11:33 | P.DIET ---
Nutritional Evaluation Type of nutrition evaluation: follow-up Nutrition consult regarding: TPN/PPN, Diet Evaluation Subjective Subjective Comments: Pt reports his appetite is very poor but he is trying his best to eat. Says he drinks at least one ensure per day. Otherwise he is tolerating his diet. Objective - Diagnosis UTI, Hemorrhagic Cystitis, - Objective Body Weight Used for Calculations: IBW (148#/ 67.3 kg) Energy Needs - Lower Range (kCal/kg): 25 Energy Needs - Upper Range (kCal/kg): 30 Lower Limit kCal/kg (kCals): 1,683 Upper Limit kCal/kg (kCals): 2,019 Lower Limit Protein Factor (Grams per Kg): 1.0 Upper Limit Protein Factor (Grams per Kg): 1.5 Lower Protein Needs (Protein): 67 Upper Protein Needs (Protein): 101 Dietitian Reviewed in Medical Record: Curent medications, Intake & Output, Labs , Medical history, TPN/PPN Diet Order: Regular Speech Therapy Recommendations: Yes (reg/thin (01/21)) Objective Comments: Med hx includes prostate CA with bone mets Meds include remeron, lactinex, protonix, Vit B12 Assessment Assessment: Tpn now fully d/c'd, pt has advanced from full liquids to regular diet. Will change ensure supplement to Ensure Enlive to provide additional calories and protein. Each can of ensure enlive will provide 350kcal and 20g protein. Will continue to monitor PO intake and supplement acceptance. Recommendations: Ensure Enlive TID Dietitian to Monitor: Lab values, Intake & Output, Diet tolerance, Weight change , PO Intake, Diet advancement, Medical course
--- NOTE | 2019-01-27 13:02 | P.PNURO ---
Subjective Patient symptoms today: Sleeping in bed Objective Vital Signs: Vital Signs 01/26/19 16:05 01/26/19 16:15 01/26/19 16:30 Temperature 97.6 F 97.8 F Pulse Rate 100 H 92 H 84 Respiratory Rate 20 21 21 Blood Pressure 172/117 H 118/56 L 108/52 L Pulse Oximetry 93 L 98 99 01/26/19 20:00 01/27/19 00:00 01/27/19 04:00 Temperature 98.8 F 99.3 F 99.3 F Pulse Rate 105 H 97 H 111 H Respiratory Rate 16 16 16 Blood Pressure 105/58 L 111/57 L 116/58 L Pulse Oximetry 95 94 L 97 01/27/19 07:15 01/27/19 08:00 01/27/19 10:45 Temperature 100.9 F H 99 F Pulse Rate 116 H Respiratory Rate 16 Blood Pressure 121/51 L Pulse Oximetry 93 L 94 L 01/27/19 11:52 Temperature 99.6 F Pulse Rate 112 H Respiratory Rate 14 Blood Pressure 97/57 L Pulse Oximetry 93 L Intake & Output 01/26/19 01/27/19 01/27/19 18:59 06:59 18:59 Intake Total 950 / 950 240 / 240 Output Total 315 / 315 550 / 550 Balance 635 / 635 -310 / -310 Weight 69.8 kg Intake: Oral 240 / 240 Anesthesia Amount 950 / 950 Output: Urine 550 / 550 Estimated Blood Loss 15 / 15 Urine Amount (Catheter) 300 / 300 Indwelling Urethral Catheter 300 / 300 Other: Date of Last Bowel Movement 01/25/19 01/25/19 Result Diagrams: 01/26/19 06:25 01/27/19 04:51 Procedures: CBI catheter replaced with a 20 [place]ian 2-way Kevin and bladder irrigated with copious amount of sterile water until all clots were retrieved. Subsequent urine output medium red in color. Medications and IVs: Active Medications Generic Name Dose Route Start Last Admin Trade Name Freq PRN Reason Stop Dose Admin Acetaminophen 650 mg 01/27/19 10:23 01/27/19 10:54 Tylenol PO 650 mg Q4H PRN Administration fever Albuterol 1 ampul 01/21/19 11:15 01/25/19 08:18 Duoneb Neb (Prn) NEB 1 ampul Q6HR WHILE AWAKE NEB PRN Administration SHORTNESS OF BREATH/WHEEZING Benzonatate 100 mg 01/22/19 10:30 01/27/19 10:43 Tessalon Perles PO 100 mg Q8H GEORGE Administration Bisacodyl 10 mg 01/06/19 15:08 01/11/19 04:53 Dulcolax Supp RECTAL 10 mg DAILY PRN Administration SEVERE CONSITIPATION Cyanocobalamin 1,000 mcg 01/07/19 09:00 01/27/19 08:42 Vitamin B12 PO 1,000 mcg DAILY GEORGE Administration Guaifenesin 600 mg 01/22/19 10:30 01/27/19 08:42 Mucinex Er PO 600 mg BID GEORGE Administration Heparin Sodium (Porcine) 0 unit 01/18/19 09:00 01/27/19 08:44 Heparin Central Flush IV.FLUSH 400 unit DAILY GEORGE Administration Heparin Sodium (Porcine) 0 unit 01/17/19 18:06 01/22/19 20:05 Heparin Central Flush IV.FLUSH 400 unit PRN PRN Administration Flush PICC Line Sodium Chloride 500 mls @ 30 mls/hr 01/26/19 02:00 01/26/19 15:49 Ns Inj IV.SIG Not Given .Q10H GEORGE Lactobacillus Acidophilus 2 tab 01/07/19 09:00 01/27/19 08:41 Lactinex PO 2 tab BID GEORGE Administration Metoclopramide HCl 5 mg 01/25/19 11:57 Reglan Inj IV.SIG Q8H PRN NAUSEA Protocol Metoprolol Tartrate 12.5 mg 01/07/19 09:00 01/27/19 08:42 Lopressor PO 12.5 mg BID GEORGE Administration Mirtazapine 30 mg 01/21/19 21:00 01/26/19 21:28 Remeron PO 30 mg HS GEORGE Administration Miscellaneous Information 1 each 01/26/19 16:05 Misc Nursing Information OTHER 01/27/19 16:04 UNSCH PRN SEE LABEL COMMENTS Morphine Sulfate 2 mg 01/18/19 20:35 01/25/19 17:44 Morphine Inj IV.PUSH 2 mg Q3H PRN Administration PAIN SCALE 7 TO 10 SEVERE Naloxone HCl 0.4 mg 01/06/19 15:08 Narcan Inj IV.PUSH UNSCH PRN SEE LABEL COMMENTS Pantoprazole Sodium 40 mg 01/27/19 09:00 01/27/19 08:42 Protonix PO 40 mg DAILY GEORGE Administration Xtandi 40mg Capsule 4 each 01/21/19 09:00 01/27/19 09:03 PO Not Given DAILY GEORGE Pravastatin Sodium 40 mg 01/07/19 21:00 01/26/19 21:27 Pravachol PO 40 mg HS GEORGE Administration Sodium Chloride 0 ml 01/18/19 09:00 01/27/19 10:10 Ns Flush IV.FLUSH 5 ml DAILY GEORGE Administration Sodium Chloride 0 ml 01/17/19 18:06 Ns Flush IV.FLUSH PRN PRN FLUSH AFTER USING IV ACCESS Sodium Chloride 0 ml 01/17/19 18:06 Ns Flush IV.FLUSH PRN PRN Flush After Blood Draws Sodium Chloride 2 ml 01/06/19 21:00 01/27/19 08:45 Ns Flush IV.FLUSH 2 ml BID GEORGE Administration Sodium Chloride 2 ml 01/06/19 15:08 01/24/19 02:31 Ns Flush IV.FLUSH 2 ml PRN PRN Administration FLUSH AFTER USING IV ACCESS Tamsulosin HCl 0.4 mg 01/07/19 18:00 01/26/19 18:02 Flomax PO 0.4 mg QPM GEORGE Administration Vancomycin HCl 125 mg 01/21/19 18:00 01/27/19 08:43 Vancomycin Po PO 125 mg QID GEORGE Administration Vitamin A/Vitamin D 1 applicatio 01/27/19 12:00 Vitamin A & D Oint TOPICAL DAILY [facility] Objective Remarks: Kevin catheter draining clear yellow urine. Assessment and Plan - Assessment (1) Gross hematuria Code(s): R31.0 - Gross hematuria Status: Resolved (2) Prostate cancer Code(s): C61 - Malignant neoplasm of prostate Status: Chronic - Plan Urologic impression: 1. Metastatic prostate cancer with mild right hydronephrosis likely related to disease progression 2. Gross hematuria likely exacerbated by the presence of a UTI 3. Urinary tract infection Recommendations: 1. Agree with present management of urinary tract infection 2. Maintain Kevin catheter to gravity drainage and discharge patient home with Kevin even after the urine clears. 3. Patient to follow-up with his established oncologist over at the [facility] after hospital discharge 4. Patient will likely require cystoscopic evaluation sometime in the near future and this can be performed by urology over at the [facility] 01/09: Bladder bleeding, many clots, now removed, but still bleeding slowly. CBI started via 20 Fr. kevin catheter. Will order NPO after MN in case needs TUR cautery of bladder bleeding tomorrow by Dr. Barnes. HGB low, receiving transfusion now. 01/10: Hematuria now resolved Continue with indwelling Kevin catheter to gravity drainage Resume cardiac diet Further recommendations as outlined above 01/25: Urologic impression: 1. Recurrent gross painless hematuria of indeterminate etiology 2. Metastatic prostate cancer being managed by oncology Plan: 1. Keep patient n.p.o. after midnight 2. We will proceed with cystoscopy and fulguration of any bleeding sites ( procedures scheduled for 1 PM tomorrow) 01/27: Urologic impression: 1. Hematuria secondary to hemorrhagic cystitis status post fulguration with resolution 2. Metastatic prostate cancer being managed by oncology Recommendations: 1. Leave Kevin catheter indwelling for minimum period of 1 week prior to removal for voiding trial 2. If patient has problems with ongoing gross hematuria in the future should consider hyperbaric oxygen therapy /
[2019-01-27] MEDS: Mirtazapine 15 MG Tablet PO SCH (21:24)
[2019-01-28] MEDS: Benzonatate 100 MG Capsule PO SCH ×3 (02:29→18:45)
[2019-01-28] MEDS: Acetaminophen 325 MG Tablet PO PRN ×3 (03:06→23:58)
[2019-01-28 06:00] LABS: Hematocrit 26.4 % (39.0-51.0); Hemoglobin 8.9 gm/dL (13.0-17.0); Mean Corpuscular HGB Conc 33.6 % (32.0-36.0); Mean Corpuscular Hemoglobin 29.9 pg (27.0-34.0); Mean Platelet Volume 6.9 fL (7.0-11.0); Platelet Count 398 th/mm3 (150-450); Red Blood Count 2.96 mil/mm3 (4.50-5.90); Red Cell Distribution Width 15.8 % (11.6-17.2); White Blood Count 7.3 th/mm3 (4.0-11.0)
[2019-01-28 06:11] LABS: Calcium 7.7 mg/dL (8.5-10.1); Carbon Dioxide 23.5 meq/L (21.0-32.0)
--- NOTE | 2019-01-28 09:26 | XR ---
EXAM DATE: 01/28/2019 9:22 AM EST AGE/SEX: 83 years / Male INDICATIONS: Fever and cough. CLINICAL DATA: This is the patient's initial encounter. Patient reports that signs and symptoms have been present for 2 days and indicates a pain score of 0/10. MEDICAL/SURGICAL HISTORY: None. . Cardiac stents. COMPARISON: [facility], CHEST 1V SINGLE AP, 01/21/2019. . FINDINGS: Lungs are well-aerated with only minimal bibasilar parenchymal changes worse on the right. PICC line in good position. The cardiomediastinal contours are unremarkable. Osseous structures are intact. CONCLUSION: PICC line in good position. Minimal bibasilar parenchymal changes, improving interval Electronically signed by: Lavon Floyd MD Board Certified Radiologist 01/28/2019 9:25 AM EST
[2019-01-28] MEDS: Lactobacillus Acidophilus/L. Spores Tablet PO SCH ×2 (09:33→20:30)
[2019-01-28] MEDS: guaiFENesin 600 MG ER Tablet PO SCH ×2 (09:33→20:29)
[2019-01-28] MEDS: Metoprolol Tartrate 25 MG Tablet PO SCH ×2 (09:33→20:28)
[2019-01-28] MEDS: Heparin Central Flush 100 UNIT/ML 5 ML Vial IV.FLUSH SCH (09:38)
--- NOTE | 2019-01-28 09:41 | P.PNFP ---
Subjective Interval history: No acute events overnight. Patient states that he is not feeling well this morning. He states that he is cold and is shaking. Reports decreased appetite. Patient had a fever around 3pm yesterday of 102.8 Denies CP, SOB, N/V, and diarrhea. <Lorraine Jay T - 01/28/19 14:46> Results - Labs Result diagrams: 01/30/19 09:25 01/30/19 09:25 <Pat Blas - 01/30/19 15:13> Abnormal lab results 01/30/19 01/30/19 Range/Units 09:25 09:25 RBC 3.10 L (4.50-5.90) mil/mm3 Hgb 9.2 L (13.0-17.0) gm/dL Hct 27.2 L (39.0-51.0) % [place] % (Auto) 9.5 H (0.0-8.0) % Eos % (Auto) 7.0 H (0.0-4.0) % Eos # (Auto) 0.5 H (0.0-0.4) th/mm3 Chloride 113 H (98-107) meq/L Carbon Dioxide 20.7 L (21.0-32.0) meq/L Estimated GFR 67 L (>89) mL/min Random Glucose 60 L (74-106) mg/dL Calcium 7.4 L* (8.5-10.1) mg/dL Albumin 1.4 L (3.4-5.0) g/dL Short CBC 01/30/19 Range/Units 09:25 WBC 6.5 (4.0-11.0) th/mm3 Hgb 9.2 L (13.0-17.0) gm/dL Hct 27.2 L (39.0-51.0) % Plt Count 354 (150-450) th/mm3 BMP 01/30/19 09:25 Sodium 142 Potassium 3.8 Chloride 113 H Carbon Dioxide 20.7 L BUN 16 Creatinine 1.05 Calcium 7.4 L* Liver Function 01/30/19 Range/Units 09:25 Albumin 1.4 L (3.4-5.0) g/dL <Pat Blas - 01/30/19 15:13> Abnormal lab results 01/28/19 01/28/19 Range/Units 05:35 05:35 RBC 2.96 L (4.50-5.90) mil/mm3 Hgb 8.9 L (13.0-17.0) gm/dL Hct 26.4 L (39.0-51.0) % MPV 6.9 L (7.0-11.0) fL Creatinine 1.43 H (0.60-1.30) mg/dL Estimated GFR 47 L (>89) mL/min Calcium 7.7 L (8.5-10.1) mg/dL Short CBC 01/28/19 Range/Units 05:35 WBC 7.3 (4.0-11.0) th/mm3 Hgb 8.9 L (13.0-17.0) gm/dL Hct 26.4 L (39.0-51.0) % Plt Count 398 (150-450) th/mm3 BMP 01/28/19 05:35 Sodium 139 Potassium 4.0 Chloride 107 Carbon Dioxide 23.5 BUN 17 Creatinine 1.43 H Calcium 7.7 L <Lorraine Jay T - 01/28/19 09:41> - Imaging Impressions Chest X-Ray 01/28/19 00:00 CONCLUSION: PICC line in good position. Minimal bibasilar parenchymal changes, improving interval <Lorraine Jay - 01/28/19 09:41> Physical Exam Vital signs: Vital Signs 01/29/19 16:00 01/29/19 19:25 01/29/19 23:50 Temperature 100.1 F H 98.1 F 100.8 F H Pulse Rate 95 H 99 H 96 H Respiratory Rate 18 18 18 Blood Pressure 148/70 H 150/68 H 129/68 Pulse Oximetry 99 96 97 01/30/19 02:28 01/30/19 03:25 01/30/19 08:00 Temperature 98.2 F 98.0 F 98.1 F Pulse Rate 96 H 94 H Respiratory Rate 18 18 Blood Pressure 142/74 H 153/83 H Pulse Oximetry 97 96 Intake & Output 01/29/19 01/30/19 01/30/19 18:59 06:59 18:59 Intake Total 1700 / 1700 2220 / 2220 Output Total 700 / 700 995 / 995 Balance 1000 / 1000 1225 / 1225 Weight 70.8 kg Intake: IV 1200 / 1200 2100 / 2100 NS Inj 1,000 ML @ 100 mls/hr IV 1000 / 1000 1999 / 1999 .CONT .Q10H [facility] Rx#:[id number] Maxipime Inj 2,000 MG In NS Inj 100 / 100 100 / 100 100 ML @ 200 mls/hr IV.SIG Q12H [facility] Rx#:[id number] Mycamine Inj 100 MG In NS Inj 100 / 100 100 ML @ 100 mls/hr IV.SIG Q24H [facility]GE Rx#:[id number] Oral 500 / 500 120 / 120 Output: Urine 700 / 700 995 / 995 Other: Date of Last Bowel Movement 01/26/19 01/26/19 # Bowel Movements 1 <Pat Blas - 01/30/19 15:13> Vital Signs 01/27/19 10:45 01/27/19 11:52 01/27/19 13:30 Temperature 99 F 99.6 F 98.7 F Pulse Rate 112 H Respiratory Rate 14 Blood Pressure 97/57 L Pulse Oximetry 93 L 01/27/19 16:00 01/27/19 20:00 01/28/19 00:00 Temperature 98.5 F 99.1 F 98.9 F Pulse Rate 101 H 116 H 123 H Respiratory Rate 20 16 14 Blood Pressure 128/57 L 125/58 L 117/66 Pulse Oximetry 95 97 93 L 01/28/19 03:00 01/28/19 06:04 01/28/19 07:40 Temperature 102.8 F H 98.3 F Pulse Rate 117 H 108 H 92 H Respiratory Rate 16 18 15 Blood Pressure 147/67 H Pulse Oximetry 94 L 93 L 94 L 01/28/19 07:57 01/28/19 08:00 Temperature 96.4 F L Pulse Rate 95 H Respiratory Rate 16 Blood Pressure 105/59 L Pulse Oximetry 90 L 93 L Intake & Output 01/27/19 01/28/19 01/28/19 18:59 06:59 18:59 Intake Total 360 / 360 240 / 240 Output Total 300 / 300 850 / 850 Balance 60 / 60 -610 / -610 Weight 67.9 kg Intake: Oral 360 / 360 240 / 240 Output: Urine 300 / 300 850 / 850 Other: Date of Last Bowel Movement 01/26/19 01/26/19 # Bowel Movements 2 <Van R2,Lorraine Benites 01/28/19 09:41> Narrative: General: Elderly male, states he is cold and is shaking Eyes: EOMI, anicteric scleral, no conjunctival injection ENT: Atraumatic, MMM Neck: Trachea midline, no masses Respiratory: normal respiratory effort, clear to auscultation bilaterally. Currently on 3 L NC Cardiovascular: Regular rate and rhythm without murmur, 1+ pedal pulses, no peripheral edema. PICC line in place, will remove today Abdomen: Normal bowel sounds. Nontender, soft, no guarding or rebound. : Galvez catheter in place, red urine Back. Sacral I ulcer noted Psychiatric: Alert and oriented. Normal affect. <Van R2Lorraine Benites 01/28/19 14:46> - Urinary Catheter Management 3-way Urethral Cath placed during this visit: no <Pat Blas 01/30/19 15:13> no <Van ClaireLorraine Benites 01/28/19 14:46> Reason for continuing: Gross Hematuria <Van R2Lorraine Benites 01/28/19 09:41> Indwelling Temp Sensing Catheter Cath placed during this visit: no <Pat Blas 01/30/19 15:13> no <Van R2Lorraine Benites 01/28/19 14:46> Reason for continuing: Gross Hematuria <Van R2Lorraine Benites 01/28/19 09:41> Indwelling Urethral Catheter Cath placed during this visit: no <Pat Blas 01/30/19 15:13> yes, but has since been removed by the nurse <Van R2Lorraine Benites 01/28/19 14:46> Urethral indwelling: Yes <Van R2Lorraine Benites 01/28/19 09:41> Reason for continuing: Gross Hematuria <Van R2Lorraine Benites 01/28/19 09:41> Insertion date: 01/26/19 <Van R2,Lorraine Benites T 01/28/19 09:41> Insertion time: 17:35 <Van R2Lorraine Benites 01/28/19 09:41> Removal date: 01/09/19 <Lorraine Jay - 01/28/19 09:41> Removal time: 17:30 <Lorraine Jay - 01/28/19 09:41> Assessment and Plan - Assessment (1) Partial bowel obstruction Code(s): K56.600 - Partial intestinal obstruction, unspecified as to cause Status: Acute (2) Pneumonia Code(s): J18.9 - Pneumonia, unspecified organism Status: Acute (3) Complicated urinary tract infection Code(s): N39.0 - Urinary tract infection, site not specified Status: Acute (4) Gross hematuria Code(s): R31.0 - Gross hematuria Status: Resolved (5) Hypertension Code(s): I10 - Essential (primary) hypertension Status: Chronic (6) Prostate cancer Code(s): C61 - Malignant neoplasm of prostate Status: Chronic (7) Ulcer of sacral region, stage 1 Code(s): L98.429 - Non-pressure chronic ulcer of back with unspecified severity Status: Acute <Pat Blas M - 01/30/19 15:13> (1) Partial bowel obstruction Code(s): K56.600 - Partial intestinal obstruction, unspecified as to cause Status: Acute Plan: (2) Pneumonia Code(s): J18.9 - Pneumonia, unspecified organism Status: Acute Plan: (3) Complicated urinary tract infection Code(s): N39.0 - Urinary tract infection, site not specified Status: Acute Plan: (4) Gross hematuria Code(s): R31.0 - Gross hematuria Status: Resolved Plan: (5) Hypertension Code(s): I10 - Essential (primary) hypertension Status: Chronic Plan: (6) Prostate cancer Code(s): C61 - Malignant neoplasm of prostate Status: Chronic Plan: (7) Ulcer of sacral region, stage 1 Code(s): L98.429 - Non-pressure chronic ulcer of back with unspecified severity Status: Acute <Lorraine Jay - 01/28/19 14:38> - Assessment and Plan He is an 83-year-old male with a history of prostate cancer admitted with hematuria found to have a partial small bowel obstruction which has now resolved. Recurrent Fever -Patient recently had cystocope done, may be related to the effects of the procedure -CXR, UA, UC, and blood cultures ordered -PICC line removed and cultured -ID reconsulted to provide assistance with abx as patient is allergic to PNC and has C.diff -Start IV Cefepime, IV Micafungin, PO Diflucan, and continue PO vanc for C.diff Prostate cancer with bone metastases He will follow-up with urologist at the [facility] for management as outpatient Patient was taking Xtandi 40mg daily, brought in medicine -Leave Galvez catheter indwelling for minimum period of 1 week prior to removal for voiding trail. If patient has problems with ongoing gross hematuria in the future should consider hyperbaric oxygen therapy. Diarrhea secondary to C. difficile: Oral vancomycin started 01/21 for 10-14 days Diarrhea resolved Partial small bowel obstruction / ileus: Had multiple days with no bowel movements and worsening distention and nausea/vomiting on 01/11. KUB at that time showed an abnormal bowel gas pattern. He was put NPO, NG tube to suction, IV fluids. SBO . ileus resolved, he is currently having diarrhea now, NG tube was removed 01/19 he is on a regular diet and half speed TPN. General surgery consulted, patient was managed medically. They have signed off TPN was discontinued 01/22 Reglan and Zofran as needed for nausea Complicated UTI with gross hematuria: Culture positive for Pseudomonas. Originally came in with hematuria, still has transient hematuria. On Flomax, hold oxybutynin H&H stable, will continue to follow -Blood cultures 01/06, 01/12- NGTD Infection adequately treated with Levaquin for 12 days. Levaquin stopped 01/22 due to C. difficile. Pneumonia: Resolved. Chest x-ray showing bilateral infiltrates on 01/11. Repeat chest x-ray 01/21 showed some improvement Incentive spirometry -Mucinex and Tessalon for symptomatic cough Hypertension: Continue home medication metoprolol Hyperlipidemia: Continue home medication pravastatin Sacral Ulcer-Stage 1 -Vaseline -Sacral pad daily Fluids: NS 100mls/hr Electrolytes: monitor and replete as needed Nutrition: Regular diet as tolerated GI prophylaxis: on p.o. Protonix at home VTE prophylaxis: b/l SCDs (pharmacologic prophylaxis contraindicated due to hematuria) Disposition: Significant deconditioning, daily PT. Patient is accepted to [facility] in [place]. <Lorraine Jay - 01/28/19 14:46> - Attending Attestation The exam, history, and the medical decision-making described in the above note were completed with the assistance of the resident physician. I reviewed and agree with the findings presented. I attest that I had a [id number] encounter with the patient on the same day, and personally performed and documented my assessment and findings in the medical record. poor man has had so many severe and recent problems. he is interested in hospice and hearing what they have to say. his expects him to be completely back to his best and able to never have ileus or other problems again <Pat Blas - 01/30/19 15:13>
[2019-01-28] MEDS: XTANDI 40 MG PO SCH (09:54)
[2019-01-28] MEDS ORDERED: Sod Chloride 0.9% Inj 1,000 ML IV.SIG SCH (10:00)
--- NOTE | 2019-01-28 10:57 | P.PNID ---
Subjective Remarks: Patient is an 83-year-old male, with known history of prostate cancer, recently diagnosed to have recurrence, and metastatic disease, presented to the hospital complaining of severe suprapubic abdominal pain. Patient apparently has had problem with urinary retention, and he has been requiring Kevin catheter for this problem since I believe September 2018. In October, he was hospitalized at the [facility] due to urinary retention. According to the patient while he was in there they tried straight catheter procedure for his problem, and patient stated he developed hematuria. He was switched back to Kevin catheter, and he was discharged to the [facility] rehab. Patient stated that his catheter was changed in the rehab once, but he could not remember the last time it was changed. The rod drawer of January 06, he started experiencing severe pain over his bladder and he had a sensation that he needed to go. In the ED they did a bladder scan, and apparently the volume was about 30 mL. He had hematuria at that time, and urine culture was sent and he was sent back to the rehab facility. Apparently the pain medication prescribed to him was not working, so the patient was brought back to the hospital and has now been admitted. Patient currently is complaining of nausea and dry heaves. He is also complaining of significant pain in the suprapubic region. He has gross hematuria and he is urine bag. Patient has been febrile up to 102. CT of the abdomen and pelvis is showing evidence of right hydro-ureteric nephrosis , and there was also possibly a bladder calculi. The bladder is decompressed. Patient gives a history of penicillin allergy with itching. Infectious disease consultation has been requested to assist with antibiotic management. Patient last seen 01/14 He was doing well at that time and completing Rx for PSAE UTI Levaquin D/C 01/21 - he actually received about 16 days total Abx for the PSAE He had ileus or SBO and treated conservatively and got better He was initially constipated but develope diarrhea Stool (+) C diff - on vanco now His diarrhea has improved had recurrent hematuria with clots and did procedure 01/26 He had CBI post op and that has been D/C today Has blood tinged urine in his kevin he started having fevers last night, and up to 103 early AM Currently having rigors at time of my exam Has had cough, not worse Last CXR with improving infiltrates Has PICC in place Vomited x 1 today No abdominal pain WBC normal His creatinine has been rising Last BM 01/26 Antibiotics: PO vancomycin Lines: PICC Past Medical History: reviewed Allergies/Adverse Reactions: Allergies Penicillins Allergy (Verified 01/06/19 02:12) Itching Objective Vital Signs 01/27/19 11:52 01/27/19 13:30 01/27/19 16:00 Temperature 99.6 F 98.7 F 98.5 F Pulse Rate 112 H 101 H Respiratory Rate 14 20 Blood Pressure 97/57 L 128/57 L Pulse Oximetry 93 L 95 01/27/19 20:00 01/28/19 00:00 01/28/19 03:00 Temperature 99.1 F 98.9 F 102.8 F H Pulse Rate 116 H 123 H 117 H Respiratory Rate 16 14 16 Blood Pressure 125/58 L 117/66 147/67 H Pulse Oximetry 97 93 L 94 L 01/28/19 06:04 01/28/19 07:40 01/28/19 07:57 Temperature 98.3 F 96.4 F L Pulse Rate 108 H 92 H 95 H Respiratory Rate 18 15 16 Blood Pressure 105/59 L Pulse Oximetry 93 L 94 L 90 L 01/28/19 08:00 Temperature Pulse Rate Respiratory Rate Blood Pressure Pulse Oximetry 93 L Intake & Output 01/27/19 01/28/19 01/28/19 18:59 06:59 18:59 Intake Total 360 / 360 240 / 240 Output Total 300 / 300 850 / 850 Balance 60 / 60 -610 / -610 Weight 67.9 kg Intake: Oral 360 / 360 240 / 240 Output: Urine 300 / 300 850 / 850 Other: Date of Last Bowel Movement 01/26/19 01/26/19 # Bowel Movements 2 Lab - Hematology Results 01/28/19 05:35 WBC 7.3 RBC 2.96 L Hgb 8.9 L Hct 26.4 L MCV 89.0 MCH 29.9 MCHC 33.6 RDW 15.8 Plt Count 398 MPV 6.9 L Lab - Chemistry Results 01/27/19 01/28/19 04:51 05:35 Sodium 141 139 Potassium 4.7 4.0 Chloride 109 H 107 Carbon Dioxide 24.8 23.5 Anion Gap 7 9 BUN 18 17 Creatinine 1.41 H 1.43 H Estimated GFR 48 L 47 L Random Glucose 115 H 91 Calcium 7.9 L 7.7 L Imaging: ITS Impressions Liver Ultrasound 01/07/19 00:00 CONCLUSION: 1. Minimal increase in echogenicity of the liver without mass or hydronephrosis. 2. There is no ductal dilatation Abdomen/Pelvis CT 01/17/19 00:00 CONCLUSION: 1. Persistent dilation of small bowel loops with a discrete transition in the region of the ileum concerning for at least a partial small bowel obstruction. The degree of small bowel distention is relatively stable. 2. Postsurgical changes with findings of prior prostatectomy. Penile prostheses but the reservoir appears to be decompressed. 3. Extensive sclerosis and cortical thickening predominantly in the right ilium and acetabulum. Some sclerosis in the left ilium, pubic ramus and lower lumbar spine. 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 4. Stable small bilateral pleural effusions with concomitant atelectatic changes. Mild abdominal ascites around the hepatic convexity is slightly increased. 5. Old granulomatous disease. Abdomen X-Ray 01/17/19 07:00 CONCLUSION: Moderate severity small bowel distention without significant change. Chest X-Ray 01/28/19 00:00 CONCLUSION: PICC line in good position. Minimal bibasilar parenchymal changes, improving interval Physical Exam: GENERAL: awake and alert, coughing, having rigors SKIN: Cool and dry. No generalized rash EYES: [place] conjunctiva. No petechia or hemorrhage. No scleral icterus. No injection or drainage. EARS, NOSE AND THROAT: Mucous membranes pink and moist. NECK: Trachea midline. Supple and not tender, no meningeal signs CARDIOVASCULAR: Regular rate and rhythm. No murmurs, rubs or gallops heard RESPIRATORY: Clear to auscultation. Breath sounds equal bilaterally. No rales , wheezing or rhonchi ABDOMEN: Soft and not tender. EXTREMITIES: No clubbing, cyanosis, or edema. No calf tenderness. : Kevin catheter in place, blood tinged urine NEUROLOGICAL: Non-focal. PSYCHIATRIC: calm and cooperative. LINE: PICC with no evidence of infection Assessment and Plan - Plan IMpression New fevers - ?related to procedure - new sepsis Possible sepsis due to UTI, better Acute Pyelonephritis, with gross hematuria, has hydroureteronephrosis on R PSAE infection UTI, treated Hemorrhagic cystitis, better Hx prostate CA with bone mets Acute Renal insufficiency, worsening again Itching with PCN Vomiting, recurrent C difficile colitis, seems to be improving Recommendation Agree with checking BC and UC Get BC from PICC Start IV Cefepime Start IV Micafungin, po Diflucan Continue PO vanco Follow temps Monitor progress D/W RN
[2019-01-28 11:11] LABS: Bacteria,Urine Few /hpf; Bilirubin,Urine Negative (Negative); Clarity,Urine Cloudy (Clear); Glucose,Urine (UA) Negative (Negative); Leukocyte Esterase,Urine Moderate (Negative); Mucus,Urine Moderate /lpf (Occasional); Nitrite,Urine Negative (Negative); Specific Gravity,Urine 1.016 (1.002-1.035); Squamous Epithelial Cell,Urine 3 /hpf (0-5); Transitional Epi Cells,Urine <1 /hpf
[2019-01-28 11:14] LABS: Color,Urine Yellow (Yellw/Straw)
--- NOTE | 2019-01-28 12:58 | P.CONPAL ---
Consult Service: Palliative Care Requesting Physician: Lorraine Jay Reason for Consult: a. To assist with evaluation and management of symptoms including: pain, nausea , weakness b. To assist medical decision maker(s) with: better understanding of current medical conditions; weighing benefits/burdens of medical treatment options; making medical treatment decisions. 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 He presented to ER the day prior for same sx, was given pain meds but did not attain complete relief. This admission pt was noted to have kartik hematuria. Initial labs remarkable for WBC 12.8, hgb 10.7, creatinine 1.92, GFR 33. CT abd/pelvis showed right hydroureternephrosis and progressed metastatic disease with sclerosis throughout pelvis and involving L5 as well. Subsequent hospital course as follows: * ID consulted, pt with PSAE UTI and pyelonephritis. * developed PNA * Pt developed nausea, constipation, abd distention and found to have distended bowel loops on KUB, NGT placed. * developed ileus, treated with NGT, rectal tube * lipase above normal, CT 01/17 suggestive PSBO, pancreas WNL; GI consulted and ordered tumor markers * developed C Diff, tx with oral vanc * 01/26 had cystoscopy & fulguration bleeding sites * fever this morning, bcx pending & started on antifungals per ID Per H&p from 2017 pt denied any family medical hx. Limited hx, mostly obtained from chart as both pt and his were relatively unwilling to talk to me. Pt seen in room, no family at bedside. Pt denies pain, nausea, dyspnea. Wearing NC with 2L. Function/Cognitive Trajectory: Pt recently in rehab for 3 weeks, abmulated wiht rolling walker. Prior to that pt was independent, able to drive, ambulatory with cane. Review of Systems other (pt & relatively unwilling to participate in full ROS) Constitutional: Reports fatigue, Reports weakness Ears, Nose, Mouth, and Throat: Denies abnormal hearing Respiratory: Denies shortness of breath Gastrointestinal: Denies abdominal pain Musculoskeletal: Denies joint pain Psychiatric: Reports hopelessness ("I've hit rock bottom") PMF - History History Provided By: Patient, Medical Record - Medical History Medical History: Medical History (Last Reviewed 01/28/19 @ 08:53 by Odessa Farley) Clostridium difficile infection Onset Date: ~01/21/19 Anemia CHF (congestive heart failure) Hypertension Muscle weakness 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 Thrombocytopenia - Surgical History Surgical History: Surgical History (Last Reviewed 01/28/19 @ 08:53 by Odessa Farley) H/O removal of testicle History of cholecystectomy Hx of appendectomy Hx of radical prostatectomy - Family History Family History: Family History (Last Updated 01/28/19 @ 14:30 by FARHANA Tobias) Other Family history non-contributory - Social History I have reviewed the patient's Social History: Yes - Tobacco History Second Hand Smoke Exposure: No Tobacco Use In Past 30 Days: No Smoking Status: Never smoker - Alcohol History How Often Do You Have a Drink Containing Alcohol: 2 to 4 times a month - Substance Use History Substance History: No History of Abuse - Travel History Recent Travel in the [place] Within the Last 8 Weeks: No Recent Travel Out of the Country Within the Last 8 Weeks: No - Immunization History Tetanus Immunization: <5 Years Hx Influenza Vaccine This Season: Yes Medications and Allergies Active Medications: Active Medications Acetaminophen (Tylenol) 650 mg PO Q4H PRN PRN Reason: fever Last Admin: 01/28/19 03:06 Dose: 650 mg Albuterol (Duoneb Neb (Prn)) 1 ampul NEB Q6HR WHILE AWAKE NEB PRN PRN Reason: SHORTNESS OF BREATH/WHEEZING Last Admin: 01/28/19 11:38 Dose: 1 ampul Benzonatate (Tessalon Perles) 100 mg PO Q8H GEORGE Last Admin: 01/28/19 10:35 Dose: 100 mg Bisacodyl (Dulcolax Supp) 10 mg RECTAL DAILY PRN PRN Reason: SEVERE CONSITIPATION Last Admin: 01/11/19 04:53 Dose: 10 mg Cyanocobalamin (Vitamin B12) 1,000 mcg PO DAILY GEORGE Last Admin: 01/28/19 09:33 Dose: 1,000 mcg Fluconazole (Diflucan) 200 mg PO DAILY [facility] Guaifenesin (Mucinex Er) 600 mg PO BID [facility] Last Admin: 01/28/19 09:33 Dose: 600 mg Heparin Sodium (Porcine) (Heparin Central Flush) 0 unit IV.FLUSH DAILY [facility] Last Admin: 01/28/19 09:38 Dose: 4 unit Heparin Sodium (Porcine) (Heparin Central Flush) 0 unit IV.FLUSH PRN PRN PRN Reason: Flush PICC Line Last Admin: 01/22/19 20:05 Dose: 400 unit Sodium Chloride (Ns Inj) 500 mls @ 30 mls/hr IV.SIG .Q10H [facility] Last Admin: 01/26/19 15:49 Dose: Not Given Cefepime HCl 2,000 mg/ Sodium (Chloride) 100 mls @ 200 mls/hr IV.SIG Q12H [facility] Micafungin Sodium 100 mg/ (Sodium Chloride) 100 mls @ 100 mls/hr IV.SIG Q24H [facility] Lactobacillus Acidophilus (Lactinex) 2 tab PO BID [facility] Last Admin: 01/28/19 09:33 Dose: 2 tab Metoclopramide HCl (Reglan Inj) 5 mg IV.SIG Q8H PRN; Protocol PRN Reason: NAUSEA Last Admin: 01/28/19 00:13 Dose: 5 mg Metoprolol Tartrate (Lopressor) 12.5 mg PO BID [facility] Last Admin: 01/28/19 09:33 Dose: 12.5 mg Mirtazapine (Remeron) 30 mg PO [facility] Last Admin: 01/27/19 21:24 Dose: 30 mg Morphine Sulfate (Morphine Inj) 2 mg IV.PUSH Q3H PRN PRN Reason: PAIN SCALE 7 TO 10 SEVERE Last Admin: 01/25/19 17:44 Dose: 2 mg Naloxone HCl (Narcan Inj) 0.4 mg IV.PUSH UNSCH PRN PRN Reason: SEE LABEL COMMENTS Pantoprazole Sodium (Protonix) 40 mg PO DAILY [facility] Last Admin: 01/28/19 09:34 Dose: 40 mg Xtandi 40mg Capsule 4 each PO DAILY [facility] Last Admin: 01/28/19 09:54 Dose: Not Given Pravastatin Sodium (Pravachol) 40 mg PO HS [facility] Last Admin: 01/27/19 21:25 Dose: 40 mg Sodium Chloride (Ns Flush) 0 ml IV.FLUSH DAILY [facility] Last Admin: 01/28/19 10:34 Dose: 10 ml Sodium Chloride (Ns Flush) 0 ml IV.FLUSH PRN PRN PRN Reason: FLUSH AFTER USING IV ACCESS Sodium Chloride (Ns Flush) 0 ml IV.FLUSH PRN PRN PRN Reason: Flush After Blood Draws Sodium Chloride (Ns Flush) 2 ml IV.FLUSH BID [facility] Last Admin: 01/28/19 09:39 Dose: 2 ml Sodium Chloride (Ns Flush) 2 ml IV.FLUSH PRN PRN PRN Reason: FLUSH AFTER USING IV ACCESS Last Admin: 01/24/19 02:31 Dose: 2 ml Tamsulosin HCl (Flomax) 0.4 mg PO QPM [facility] Last Admin: 01/27/19 18:53 Dose: 0.4 mg Vancomycin HCl (Vancomycin Po) 125 mg PO QID [facility] Last Admin: 01/28/19 09:38 Dose: 125 mg Vitamin A/Vitamin D (Vitamin A & D Oint) 1 applicatio TOPICAL DAILY [facility] Last Admin: 01/28/19 11:05 Dose: 1 gm Allergies Allergy/AdvReac Type Severity Reaction Status Date / Time Penicillins Allergy Itching Verified 01/06/19 02:12 Home Medications Medication Instructions Recorded Confirmed Type Lactobacillus rhamnosus GG 2 BID 01/06/19 History [Culturelle] acetaminophen 650 PO Q4HR PRN 01/06/19 History aspirin [Aspirin Low Dose] 81 PO DAILY 01/06/19 History bisacodyl [Dulcolax (bisacodyl)] 10 SD DAILY PRN 01/06/19 History cyanocobalamin (vitamin B-12) 1,000 mcg PO DAILY 01/06/19 01/07/19 History enzalutamide [Xtandi] 160 mg PO DAILY 01/06/19 01/07/19 History magnesium hydroxide [Milk of 30 ml PO PRN 01/06/19 History Magnesia] metoprolol tartrate 12.5 PO BID 01/06/19 History pantoprazole [Protonix] 40 mg PO DAILY 01/06/19 01/07/19 History pravastatin 40 PO QPM 01/06/19 History prednisone 2.5 mg PO QPM 01/06/19 01/07/19 History prednisone 5 mg PO DAILY 01/06/19 01/07/19 History sodium phosphates [Fleet Enema] 118 ml SD PRN PRN 01/06/19 01/07/19 History tamsulosin 0.4 mg PO QPM 01/06/19 01/07/19 History docusate sodium 100 mg PO QPM 01/07/19 01/07/19 History ondansetron HCl [Zofran] 4 mg PO Q6HR PRN 01/07/19 01/07/19 History Advance Directives Living Will: Yes Family/friends goals: wishes for to go to rehab Ethical and Legal Issues: Patient is currently capacitated to make decisions. In the event he becomes incapacitated in the absence of a designated healthcare surrogate, per [place] statute proxy decision making falls to his Physical Exam Vital Signs: Vital Signs - 24 hr 01/27/19 13:30 01/27/19 16:00 01/27/19 20:00 Temperature 98.7 F 98.5 F 99.1 F Pulse Rate 101 H 116 H Respiratory Rate 20 16 Blood Pressure 128/57 L 125/58 L Pulse Oximetry 95 97 01/28/19 00:00 01/28/19 03:00 01/28/19 06:04 Temperature 98.9 F 102.8 F H 98.3 F Pulse Rate 123 H 117 H 108 H Respiratory Rate 14 16 18 Blood Pressure 117/66 147/67 H Pulse Oximetry 93 L 94 L 93 L 01/28/19 07:40 01/28/19 07:57 01/28/19 08:00 Temperature 96.4 F L Pulse Rate 92 H 95 H Respiratory Rate 15 16 Blood Pressure 105/59 L Pulse Oximetry 94 L 90 L 93 L 01/28/19 11:39 Temperature Pulse Rate 60 Respiratory Rate 16 Blood Pressure Pulse Oximetry I&O: Intake & Output 01/26/19 01/27/19 01/28/19 01/29/19 06:59 06:59 06:59 06:59 Intake Total 480 / 480 1190 / 1190 600 / 600 Output Total 625 / 625 865 / 865 1150 / 1150 Balance -145 / -145 325 / 325 -550 / -550 Weight 66.8 kg 69.8 kg 67.9 kg Physical Exam: CONSTITUTIONAL/GENERAL: This is an adequately nourished patient, in no apparent distress. TUBES/LINES/DRAINS:PIV, PICC, kevin SKIN: No jaundice, rashes, or lesions. Ecchymoses on upper extremities. No wounds seen anteriorly. Skin temperature appropriate. Not diaphoretic. HEAD: Atraumatic. Normocephalic. EYES: Pupils equal and round and reactive. Extraocular motions intact. No scleral icterus. No injection or drainage. Fundi not examined. ENT: Hearing grossly normal. Nose without bleeding or purulent drainage. NECK: Trachea midline. Supple, nontender. CARDIOVASCULAR: Regular rate and rhythm without murmurs, gallops, or rubs. No JVD. Peripheral pulses symmetric. RESPIRATORY/CHEST: Symmetric, unlabored respirations. Clear to auscultation. diminished right side. No wheezes, rales, or rhonchi. GASTROINTESTINAL: Abdomen soft, non-tender, nondistended. No hepato-splenomegaly , or palpable masses. No guarding. Bowel sounds present. GENITOURINARY: Without palpable bladder distension. Kevin catheter in place, + hematuria. MUSCULOSKELETAL: Extremities without clubbing, cyanosis, or edema. No joint tenderness or effusion noted. No calf tenderness. No mottling or clubbing. LYMPHATICS: No palpable cervical or supraclavicular adenopathy. NEUROLOGICAL: Awake and alert. Motor and sensory grossly within normal limits. Follows commands. Cognitively sharp. Moves all extremities. PSYCHIATRIC: flat affect, seems somewhat depressed Diagnostic Tests Laboratory: Laboratory Results - last 72 hr 01/26/19 01/26/19 01/27/19 06:25 06:25 04:51 WBC 6.9 RBC 3.14 L Hgb 9.6 L Hct 27.9 L MCV 89.0 MCH 30.6 MCHC 34.4 RDW 15.2 Plt Count 481 H MPV 6.9 L Neut % (Auto) 59.5 Lymph % (Auto) 14.9 [place] % (Auto) 17.5 H Eos % (Auto) 6.9 H Baso % (Auto) 1.2 Neut # (Auto) 4.1 Lymph # (Auto) 1.0 [place] # (Auto) 1.2 H Eos # (Auto) 0.5 H Baso # (Auto) 0.1 WBC Differential . Differential Comment Auto diff final Sodium 139 141 Potassium 4.4 4.7 Chloride 107 109 H Carbon Dioxide 24.0 24.8 Anion Gap 8 7 BUN 17 18 Creatinine 1.57 H 1.41 H Estimated GFR 42 L 48 L Random Glucose 108 H 115 H Calcium 7.6 L 7.9 L Urine Color Urine Clarity Urine pH Ur Specific [place] Urine Protein Urine Glucose (UA) Urine Ketones Urine Occult Blood Urine Nitrate Urine Bilirubin Urine Urobilinogen Ur Leukocyte Esterase Urine RBC Urine WBC Urine WBC Clumps Ur Squamous Epith Cells Ur Transition Epith Cell Urine Bacteria WBC Casts Urine Mucus Urine Yeast Micro UA Comment Ur Microscopic Review Urine Culture Comments 01/28/19 01/28/19 01/28/19 05:35 05:35 09:52 WBC 7.3 RBC 2.96 L Hgb 8.9 L Hct 26.4 L MCV 89.0 MCH 29.9 MCHC 33.6 RDW 15.8 Plt Count 398 MPV 6.9 L Neut % (Auto) Lymph % (Auto) [place] % (Auto) Eos % (Auto) Baso % (Auto) Neut # (Auto) Lymph # (Auto) [place] # (Auto) Eos # (Auto) Baso # (Auto) WBC Differential Differential Comment Sodium 139 Potassium 4.0 Chloride 107 Carbon Dioxide 23.5 Anion Gap 9 BUN 17 Creatinine 1.43 H Estimated GFR 47 L Random Glucose 91 Calcium 7.7 L Urine Color Yellow Urine Clarity Cloudy H Urine pH 5.0 Ur Specific [place] 1.016 Urine Protein 100 H Urine Glucose (UA) Negative Urine Ketones Negative Urine Occult Blood Large H Urine Nitrate Negative Urine Bilirubin Negative Urine Urobilinogen Less than 2 Ur Leukocyte Esterase Moderate H Urine RBC Urine WBC Urine WBC Clumps Many H Ur Squamous Epith Cells 3 Ur Transition Epith Cell <1 Urine Bacteria Few H WBC Casts 1 Urine Mucus Moderate H Urine Yeast Many H Micro UA Comment Culture indicated Ur Microscopic Review Not Reportable Urine Culture Comments Culture indicated Result Diagrams: 01/28/19 05:35 01/28/19 05:35 Imaging: ITS Impressions Liver Ultrasound 01/07/19 00:00 CONCLUSION: 1. Minimal increase in echogenicity of the liver without mass or hydronephrosis. 2. There is no ductal dilatation Abdomen/Pelvis CT 01/17/19 00:00 CONCLUSION: 1. Persistent dilation of small bowel loops with a discrete transition in the region of the ileum concerning for at least a partial small bowel obstruction. The degree of small bowel distention is relatively stable. 2. Postsurgical changes with findings of prior prostatectomy. Penile prostheses but the reservoir appears to be decompressed. 3. Extensive sclerosis and cortical thickening predominantly in the right ilium and acetabulum. Some sclerosis in the left ilium, pubic ramus and lower lumbar spine. 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 4. Stable small bilateral pleural effusions with concomitant atelectatic changes. Mild abdominal ascites around the hepatic convexity is slightly increased. 5. Old granulomatous disease. Abdomen X-Ray 01/17/19 07:00 CONCLUSION: Moderate severity small bowel distention without significant change. Chest X-Ray 01/28/19 00:00 CONCLUSION: PICC line in good position. Minimal bibasilar parenchymal changes, improving interval Procedures: 01/26 cystoscopy, fulguration bleeding sites Patient/Family Conference Present at Family Conference: pt seen in room pt's seen in hallway Family Conference Time: Family Conference Location: Bedside, Hallway Issues Discussed: discussed with pt: role palliative care, option of rehab, medical update. Pt relatively unwilling to talk. HE did tell me "I feel like I hit rock bottom." WHen I asked if he was interested in going to rehab he shook his head 'no.' Resistant to further discussion. Pt's goals seem more comfort oriented. discussed with : * Palliative care role, purpose, approach * Additional medical * brief review Patients general health in the months leading up to the current hospitalization * family understanding of the current medical problems - poor insight * family understanding of prognosis * brief review Patients goals of care as best understood from advance directives * Current medical treatment options - rehab 's goals conflicting. When I inquired about advanced directives, she said he had them somewhere and then became upset, saying "are you telling me my is dying?!" I reassured her that I was not telling her that, just trying to understand what he wants and that is something I discuss with all my patients. I mentioned that the pt told me he felt like he "hit rock bottom." She expressed frustration, saying he felt that way before and then she thought he was better. She attempted to give me some recent hx and then said "I can't keep my days straight. I'VE BEEN GOING THROUGH THIS FOR SEVEN WEEKS!" She told me she didn't want him to have the cystoscopy but he had insisted. She became quite agitated as she spoke and ended the conversation, "DON'T LOOK AT ME LIKE I CAN'T KEEP MY DAYS STRAIGHT! I'M GOING TO SEE MY ." Assessment and Plan - Disease Oriented Problem List (1) Acute hemorrhagic cystitis (2) Prostate cancer metastatic to bone (3) UTI (urinary tract infection) Pertinent Non-Medical Issues: Psychosocial: Pt was living with his and then [facility] Pt and declined to participate in further review. Spiritual: pastoral care avail Legal: Patient is currently capacitated to make decisions. In the event he becomes incapacitated in the absence of a designated healthcare surrogate, per [place] statute proxy decision making falls to his Ethical issues impacting care: none Important Contacts: Parul Rutherford [phone] Prognosis: 83 y/o male with recurrence prostate ca with mets to pelvis and L5 who presented 01/05/19 for hematuria and dysuria. Experienced multiple complications this admission to include pneumonia, ileus. He is very weak, with declined performance status. Unlikely he will accomplish much in rehab and he does not seem motivated to do so. He remains at risk for further decline and complications. He is hospice appropriate should goals be in line with comfort Code Status: No Code DNR Plan: - LEGAL DECISION MAKER -Patient is currently capacitated to make decisions. In the event he becomes incapacitated in the absence of a designated healthcare surrogate, per [place] stat[place] proxy decision making falls to his - CODE STATUS- no code DNR - GOALS - Pt with comfort oriented goals expressed to me however apparently has previously expressed to case mgmt that he wishes to go to rehab. conflicted and easily agitated. - SYMPTOMS - * pain - 2/2 malignant process, sites include pelvis, suprapubic region, back. Denies pain on my eval however for a good part of this admission had persistent suprapubic discomfort. * fatigue/weakness - multifactorial 2/2 malignancy, deconditioning. * nausea - multifactorial. has had constipation likely 2//2 opioids and for awhile imaging suggested PSBO. That seems to have resolved however he has had intermittent nausea. denies nausea on my eval however he is clutching an emesis bag. - d/w CM, d/w Dr Yeboah - Palliative care will continue to follow during hospital course as condition evolves, to assist patient/decision-maker with understanding of medical conditions, weighing benefits/burdens of treatment options, for clarification of goals of treatment. Additionally will assist with any symptoms of palliative concern Appreciation Thank you for the opportunity to participate in the care of Fuentes Rutherford. Attestation Attestation: To help prompt me to consider important information that might be impacting today's encounter and assessment, information from prior notes written by myself or my colleagues may have been "brought forward" into today's note. My signature on this note, however, is an attestation that I personally performed the exam, history, and/or decision-making noted today, and, unless otherwise indicated, the interactions with patient, family, and staff as well as the review of records all occurred today. I also attest that the listed assessment and stated plan reflect my best clinical judgment today based on the combination of historical information, prior notes, and today's exam/ interactions. When time spent is documented, it refers only to time spent today by the signer, or if indicated, combined time spent today by collaborating physician/nurse practitioner.
[2019-01-28] MEDS: Sod Chloride 0.9% Inj 1,000 ML IV.CONT SCH (16:54)
[2019-01-28 19:17] LABS: Hematocrit 25.1 % (39.0-51.0); Hemoglobin 8.4 gm/dL (13.0-17.0)
[2019-01-28] MEDS: Mirtazapine 15 MG Tablet PO SCH (20:28)
[2019-01-28 22:42] VITALS: RESP 18
[2019-01-29] MEDS: Sod Chloride 0.9% Inj 1,000 ML IV.CONT SCH ×3 (01:32→20:22)
[2019-01-29] MEDS: Benzonatate 100 MG Capsule PO SCH ×3 (03:53→17:36)
[2019-01-29 08:41] LABS: Baso % (Auto) 0.6 % (0.0-2.0); Eos # (Auto) 0.7 th/mm3 (0.0-0.4); Hematocrit 29.8 % (39.0-51.0); Hemoglobin 9.9 gm/dL (13.0-17.0); Lymph # (Auto) 0.9 th/mm3 (1.0-4.8); Lymph % (Auto) 11.6 % (9.0-44.0); Mean Corpuscular HGB Conc 33.2 % (32.0-36.0); Mean Corpuscular Hemoglobin 29.9 pg (27.0-34.0); Mean Corpuscular Volume 90.2 fL (80.0-100.0); Mean Platelet Volume 6.9 fL (7.0-11.0); Mono # (Auto) 0.9 th/mm3 (0.0-0.9); Mono % (Auto) 12.2 % (0.0-8.0); Neut # (Auto) 4.9 th/mm3 (1.8-7.7); Neut % (Auto) 66.6 % (16.0-70.0); Platelet Count 378 th/mm3 (150-450); Red Cell Distribution Width 16.1 % (11.6-17.2); White Blood Count 7.4 th/mm3 (4.0-11.0)
[2019-01-29 08:46] LABS: Calcium 7.7 mg/dL (8.5-10.1); Carbon Dioxide 22.7 meq/L (21.0-32.0); Potassium 4.3 meq/L (3.5-5.1)
--- NOTE | 2019-01-29 09:37 | P.PNFP ---
Subjective Interval history: No acute events overnight. He is continued to have intermittent fevers. He is continued to have some shaking chills. His appetite is decreased and stable. He has no shortness of breath, chest pain, palpitations, nausea, vomiting, abdominal pain, diarrhea. <Kayode Zhao Garg - 01/29/19 10:29> Results - Labs Result diagrams: 01/30/19 09:25 01/30/19 09:25 <Pat Blas - 01/30/19 15:14> Abnormal lab results 01/30/19 01/30/19 Range/Units 09:25 09:25 RBC 3.10 L (4.50-5.90) mil/mm3 Hgb 9.2 L (13.0-17.0) gm/dL Hct 27.2 L (39.0-51.0) % [place] % (Auto) 9.5 H (0.0-8.0) % Eos % (Auto) 7.0 H (0.0-4.0) % Eos # (Auto) 0.5 H (0.0-0.4) th/mm3 Chloride 113 H (98-107) meq/L Carbon Dioxide 20.7 L (21.0-32.0) meq/L Estimated GFR 67 L (>89) mL/min Random Glucose 60 L (74-106) mg/dL Calcium 7.4 L* (8.5-10.1) mg/dL Albumin 1.4 L (3.4-5.0) g/dL Short CBC 01/30/19 Range/Units 09:25 WBC 6.5 (4.0-11.0) th/mm3 Hgb 9.2 L (13.0-17.0) gm/dL Hct 27.2 L (39.0-51.0) % Plt Count 354 (150-450) th/mm3 BMP 01/30/19 09:25 Sodium 142 Potassium 3.8 Chloride 113 H Carbon Dioxide 20.7 L BUN 16 Creatinine 1.05 Calcium 7.4 L* Liver Function 01/30/19 Range/Units 09:25 Albumin 1.4 L (3.4-5.0) g/dL <Pat Blas - 01/30/19 15:14> Abnormal lab results 01/28/19 01/28/1901/29/19 Range/Units 09:52 18:10 07:17 RBC 3.30 L (4.50-5.90) mil/mm3 Hgb 8.4 L 9.9 L (13.0-17.0) gm/dL Hct 25.1 L 29.8 L (39.0-51.0) % MPV 6.9 L (7.0-11.0) fL [place] % (Auto) 12.2 H (0.0-8.0) % Eos % (Auto) 9.0 H (0.0-4.0) % Lymph # (Auto) 0.9 L (1.0-4.8) th/mm3 Eos # (Auto) 0.7 H (0.0-0.4) th/mm3 Chloride (98-107) meq/L BUN (7-18) mg/dL Creatinine (0.60-1.30) mg/dL Estimated GFR (>89) mL/min Calcium (8.5-10.1) mg/dL Urine Clarity Cloudy H (Clear) Urine Protein 100 H (Neg-Trace) mg/dL Urine Occult Blood Large H (Negative) Ur Leukocyte Esterase Moderate H (Negative) Urine WBC Clumps Many H (None) Urine Bacteria Few H (None) /hpf Urine Mucus Moderate H (Occasional) /lpf Urine Yeast Many H (None) /hpf 01/29/19 Range/Units 07:17 RBC (4.50-5.90) mil/mm3 Hgb (13.0-17.0) gm/dL Hct (39.0-51.0) % MPV (7.0-11.0) fL [place] % (Auto) (0.0-8.0) % Eos % (Auto) (0.0-4.0) % Lymph # (Auto) (1.0-4.8) th/mm3 Eos # (Auto) (0.0-0.4) th/mm3 Chloride 113 H (98-107) meq/L BUN 19 H (7-18) mg/dL Creatinine 1.32 H (0.60-1.30) mg/dL Estimated GFR 52 L (>89) mL/min Calcium 7.7 L (8.5-10.1) mg/dL Urine Clarity (Clear) Urine Protein (Neg-Trace) mg/dL Urine Occult Blood (Negative) Ur Leukocyte Esterase (Negative) Urine WBC Clumps (None) Urine Bacteria (None) /hpf Urine Mucus (Occasional) /lpf Urine Yeast (None) /hpf Short CBC 01/28/19 01/29/19 Range/Units 18:10 07:17 WBC 7.4 (4.0-11.0) th/mm3 Hgb 8.4 L 9.9 L (13.0-17.0) gm/dL Hct 25.1 L 29.8 L (39.0-51.0) % Plt Count 378 (150-450) th/mm3 BMP 01/29/19 07:17 Sodium 141 Potassium 4.3 Chloride 113 H Carbon Dioxide 22.7 BUN 19 H Creatinine 1.32 H Calcium 7.7 L Urine 01/28/19 Range/Units 09:52 Urine Color Yellow (Yellw/Straw) Urine Clarity Cloudy H (Clear) Urine pH 5.0 (5.0-8.5) Ur Specific [place] 1.016 (1.002-1.035) Urine Protein 100 H (Neg-Trace) mg/dL Urine Glucose (UA) Negative (Negative) mg/dL <Kayode GargZhao J - 01/29/19 09:36> Physical Exam Vital signs: Vital Signs 01/29/19 16:00 01/29/19 19:25 01/29/19 23:50 Temperature 100.1 F H 98.1 F 100.8 F H Pulse Rate 95 H 99 H 96 H Respiratory Rate 18 18 18 Blood Pressure 148/70 H 150/68 H 129/68 Pulse Oximetry 99 96 97 01/30/19 02:28 01/30/19 03:25 01/30/19 08:00 Temperature 98.2 F 98.0 F 98.1 F Pulse Rate 96 H 94 H Respiratory Rate 18 18 Blood Pressure 142/74 H 153/83 H Pulse Oximetry 97 96 Intake & Output 01/29/19 01/30/19 01/30/19 18:59 06:59 18:59 Intake Total 1700 / 1700 2220 / 2220 Output Total 700 / 700 995 / 995 Balance 1000 / 1000 1225 / 1225 Weight 70.8 kg Intake: IV 1200 / 1200 2100 / 2100 NS Inj 1,000 ML @ 100 mls/hr IV 1000 / 1000 2000 / 2000 .CONT .Q10H [facility] Rx#:[id number] Maxipime Inj 2,000 MG In NS Inj 100 / 100 100 / 100 100 ML @ 200 mls/hr IV.SIG Q12H [facility] Rx#:[id number] Mycamine Inj 100 MG In NS Inj 100 / 100 100 ML @ 100 mls/hr IV.SIG Q24H [facility]GE Rx#:[id number] Oral 500 / 500 120 / 120 Output: Urine 700 / 700 995 / 995 Other: Date of Last Bowel Movement 01/26/19 01/26/19 # Bowel Movements 1 <Pat Blas M - 01/30/19 15:14> Vital Signs 01/28/19 11:39 01/28/19 11:57 01/28/19 16:00 Temperature 102 F H 98.3 F Pulse Rate 60 121 H 107 H Respiratory Rate 16 20 20 Blood Pressure 119/62 118/57 L Pulse Oximetry 97 96 01/28/19 20:00 01/28/19 22:16 01/29/19 00:00 Temperature 99.7 F H 102.4 F H Pulse Rate 100 H 103 H Respiratory Rate 18 18 Blood Pressure 116/67 119/60 Pulse Oximetry 97 95 98 01/29/19 04:00 01/29/19 08:00 Temperature 97.4 F L 99.3 F Pulse Rate 98 H 104 H Respiratory Rate 18 18 Blood Pressure 144/73 H 144/67 H Pulse Oximetry 99 99 Intake & Output 01/28/19 01/29/19 01/29/19 18:59 06:59 18:59 Intake Total 1560 / 1560 1940 / 1940 Output Total 500 / 500 2400 / 2400 Balance 1060 / 1060 -460 / -460 Weight 68 kg Intake: IV 1200 / 1200 1100 / 1100 NS Inj 1,000 ML @ 100 mls/hr IV 1000 / 1000 .CONT .Q10H [facility] Rx#:[id number] Maxipime Inj 2,000 MG In NS Inj 100 / 100 100 / 100 100 ML @ 200 mls/hr IV.SIG Q12H [facility] Rx#:[id number] Mycamine Inj 100 MG In NS Inj 100 / 100 100 ML @ 100 mls/hr IV.SIG Q24H [facility] Rx#:[id number] NS Inj 1,000 ML @ 1000 mls/hr 1000 / 1000 IV.SIG BOLUS GE[facility]GE Rx#:[id number] Oral 360 / 360 840 / 840 Output: Urine 500 / 500 2400 / 2400 Other: Date of Last Bowel Movement 01/29/19 # Bowel Movements 4 <Zhao Brian 01/29/19 09:36> Narrative: General: Elderly male, no acute distress Eyes: EOMI, anicteric scleral, no conjunctival injection ENT: Atraumatic, MMM Neck: Trachea midline, no masses Respiratory: normal respiratory effort, clear to auscultation bilaterally. Cardiovascular: Regular rate and rhythm without murmur, 1+ pedal pulses, no peripheral edema. Abdomen: Normal bowel sounds. Nontender, soft, no guarding or rebound. : Galvez catheter in place, yellow urine Back. Sacral I ulcer: dressing in place Psychiatric: Alert and oriented. Normal affect. <Zhao Brian 01/29/19 10:29> - Urinary Catheter Management 3-way Urethral Cath placed during this visit: no <Pat Blas 01/30/19 15:14> no <Zaho Brian 01/29/19 11:34> Reason for continuing: Gross Hematuria <Zhao Brian 01/29/19 09: 36> Indwelling Temp Sensing Catheter Cath placed during this visit: no <Pat Blas 01/30/19 15:14> no <Zhao Brian 01/29/19 11:34> Reason for continuing: Gross Hematuria <Zhao Brian 01/29/19 09: 36> Indwelling Urethral Catheter Cath placed during this visit: no <Pat Blas 01/30/19 15:14> yes, but has since been removed by the nurse <Zhao Brian 01/29/19 11:34> Urethral indwelling: Yes <Zhao Brian 01/29/19 09:36> Reason for continuing: Gross Hematuria <Zhao Brian 01/29/19 09: 36> Insertion date: 01/26/19 <Zhao Brian 01/29/19 09:36> Insertion time: 17:35 <SharonglZhao Davis 01/29/19 09:36> Removal date: 01/09/19 <Zhao Brian 01/29/19 09:36> Removal time: 17:30 <SharonglZhao Davis - 01/29/19 09:36> Assessment and Plan - Assessment (1) Partial bowel obstruction Code(s): K56.600 - Partial intestinal obstruction, unspecified as to cause Status: Acute (2) Pneumonia Code(s): J18.9 - Pneumonia, unspecified organism Status: Acute (3) Complicated urinary tract infection Code(s): N39.0 - Urinary tract infection, site not specified Status: Acute (4) Gross hematuria Code(s): R31.0 - Gross hematuria Status: Resolved (5) Hypertension Code(s): I10 - Essential (primary) hypertension Status: Chronic (6) Prostate cancer Code(s): C61 - Malignant neoplasm of prostate Status: Chronic (7) Ulcer of sacral region, stage 1 Code(s): L98.429 - Non-pressure chronic ulcer of back with unspecified severity Status: Acute <Pat Blas 01/30/19 15:14> (1) Partial bowel obstruction Code(s): K56.600 - Partial intestinal obstruction, unspecified as to cause Status: Acute Plan: (2) Pneumonia Code(s): J18.9 - Pneumonia, unspecified organism Status: Acute Plan: (3) Complicated urinary tract infection Code(s): N39.0 - Urinary tract infection, site not specified Status: Acute Plan: (4) Gross hematuria Code(s): R31.0 - Gross hematuria Status: Resolved Plan: (5) Hypertension Code(s): I10 - Essential (primary) hypertension Status: Chronic Plan: (6) Prostate cancer Code(s): C61 - Malignant neoplasm of prostate Status: Chronic Plan: (7) Ulcer of sacral region, stage 1 Code(s): L98.429 - Non-pressure chronic ulcer of back with unspecified severity Status: Acute <Zhao Brian - 01/29/19 11:34> - Assessment and Plan He is an 83-year-old male with a history of prostate cancer admitted with hematuria found to have a partial small bowel obstruction which has now resolved. Recurrent Fever: Chest x-ray showed improvement over prior films. He recently had cystocope done, may be related to the effects of the procedure -Urine culture on 01/28 pending Blood cultures from 01/28 pending -PICC line removed and cultured on 01/28: Pending -ID reconsulted to provide assistance with abx as patient is allergic to PNC and has C.diff -Continue IV Cefepime, IV Micafungin, PO Diflucan, and continue PO vanc for C.diff Prostate cancer with bone metastases: also presented with urosepsis that has since resolved He will follow-up with urologist at the [facility] for management as outpatient Patient was taking Xtandi 40mg daily, brought in medicine -Leave Galvez catheter indwelling for minimum period of 1 week prior to removal for voiding trail. If patient has problems with ongoing gross hematuria in the future should consider hyperbaric oxygen therapy. On Flomax, hold oxybutynin H&H stable, will continue to follow Infection adequately treated with Levaquin for 12 days. Levaquin stopped 01/22 due to C. difficile. Diarrhea secondary to C. difficile: Oral vancomycin started 01/21, plan for 10-14 days and when off other antibiotics Diarrhea resolved Partial small bowel obstruction / ileus: Had multiple days with no bowel movements and worsening distention and nausea/vomiting on 01/11. KUB at that time showed an abnormal bowel gas pattern. He was put NPO, NG tube to suction, IV fluids. SBO . ileus resolved, he is currently having diarrhea now, NG tube was removed 01/19 he is on a regular diet and half speed TPN. General surgery consulted, patient was managed medically. They have signed off TPN was discontinued 01/22 Reglan and Zofran as needed for nausea Pneumonia: Resolved. Chest x-ray showing bilateral infiltrates on 01/11. Repeat chest x-ray 01/21 showed some improvement Incentive spirometry -Mucinex and Tessalon for symptomatic cough Hypertension: Continue home medication metoprolol Hyperlipidemia: Continue home medication pravastatin Sacral Ulcer-Stage 1 -Vaseline -Sacral pad daily Fluids: NS 100mls/hr Electrolytes: monitor and replete as needed Nutrition: Regular diet as tolerated GI prophylaxis: on PO Protonix at home VTE prophylaxis: b/l SCDs (pharmacologic prophylaxis contraindicated due to hematuria) Disposition: Significant deconditioning, daily PT. Patient was accepted to [facility] in [place] before he had recurrent fevers. Now palliative care is involved in the patient is interested in changing goals of care to comfort measures. He wishes to speak to hospice. Consult was put in today. <Zhao Brian - 01/29/19 10:37> - Attending Attestation The exam, history, and the medical decision-making described in the above note were completed with the assistance of the resident physician. I reviewed and agree with the findings presented. I attest that I had a [id number] encounter with the patient on the same day, and personally performed and documented my assessment and findings in the medical record. he told me he does want hospice as he is tired of the aggressive medical care. he will speak to his opal <Pat Blas - 01/30/19 15:14>
[2019-01-29 10:01] LABS: Eosinophils 3 % (0-4); Lymphocytes 13 % (9-44); Metamyelocytes 2 % (0-1); Monocytes 6 % (0-8); Myelocytes 1 % (0-0)
[2019-01-29] MEDS: guaiFENesin 600 MG ER Tablet PO SCH ×2 (10:01→20:22)
[2019-01-29] MEDS: Lactobacillus Acidophilus/L. Spores Tablet PO SCH ×2 (10:01→20:21)
[2019-01-29] MEDS: Heparin Central Flush 100 UNIT/ML 5 ML Vial IV.FLUSH SCH ×2 (10:02→10:14)
[2019-01-29 10:04] LABS: Platelet Estimate Normal (Normal); Platelet Morphology Normal (Normal)
[2019-01-29] MEDS: XTANDI 40 MG PO SCH (10:04)
[2019-01-29] MEDS: Metoprolol Tartrate 25 MG Tablet PO SCH ×2 (10:05→20:21)
--- NOTE | 2019-01-29 13:04 | P.PNID ---
Subjective Remarks: Patient is an 83-year-old male, with known history of prostate cancer, recently diagnosed to have recurrence, and metastatic disease, presented to the hospital complaining of severe suprapubic abdominal pain. Patient apparently has had problem with urinary retention, and he has been requiring Galvez catheter for this problem since I believe September 2018. In October, he was hospitalized at the [facility] due to urinary retention. According to the patient while he was in there they tried straight catheter procedure for his problem, and patient stated he developed hematuria. He was switched back to Galvez catheter, and he was discharged to the [facility] rehab. Patient stated that his catheter was changed in the rehab once, but he could not remember the last time it was changed. 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 In the ED they did a bladder scan, and apparently the volume was about 30 mL. He had hematuria at that time, and urine culture was sent and he was sent back to the rehab facility. Apparently the pain medication prescribed to him was not working, so the patient was brought back to the hospital and has now been admitted. Patient currently is complaining of nausea and dry heaves. He is also complaining of significant pain in the suprapubic region. He has gross hematuria and he is urine bag. Patient has been febrile up to 102. CT of the abdomen and pelvis is showing evidence of right hydro-ureteric nephrosis , and there was also possibly a bladder calculi. The bladder is decompressed. Patient gives a history of penicillin allergy with itching. Infectious disease consultation has been requested to assist with antibiotic management. Notes reviewed Febrile to 102 at midnight UA with pyuria, bacteria and yeast BC negative UC pending PICC removed yesterday Palliative medicine evaluating patient Last CXR 01/28, improving infiltrates Creatinine same 1.3 Diarrhea better Antibiotics: PO vancomycin Cefepime Micafungin Diflucan Lines: PICC Past Medical History: reviewed Allergies/Adverse Reactions: Allergies Penicillins Allergy (Verified 01/06/19 02:12) Itching Objective Vital Signs 01/28/19 16:00 01/28/19 20:00 01/28/19 22:16 Temperature 98.3 F 99.7 F H Pulse Rate 107 H 100 H Respiratory Rate 20 18 Blood Pressure 118/57 L 116/67 Pulse Oximetry 96 97 95 01/29/19 00:00 01/29/19 04:00 01/29/19 08:00 Temperature 102.4 F H 97.4 F L 99.3 F Pulse Rate 103 H 98 H 104 H Respiratory Rate 18 18 18 Blood Pressure 119/60 144/73 H 144/67 H Pulse Oximetry 98 99 99 01/29/19 12:00 Temperature 99.4 F Pulse Rate 104 H Respiratory Rate 18 Blood Pressure 134/68 Pulse Oximetry 99 Intake & Output 01/28/19 01/29/19 01/29/19 18:59 06:59 18:59 Intake Total 1560 / 1560 1940 / 1940 1100 / 1100 Output Total 500 / 500 2400 / 2400 Balance 1060 / 1060 -460 / -460 1100 / 1100 Weight 68 kg Intake: IV 1200 / 1200 1100 / 1100 1100 / 1100 NS Inj 1,000 ML @ 100 mls/hr IV 1000 / 1000 1000 / 1000 .CONT .Q10H [facility] Rx#:[id number] Maxipime Inj 2,000 MG In NS Inj 100 / 100 100 / 100 100 / 100 100 ML @ 200 mls/hr IV.SIG Q12H GEORGE Rx#:[id number] Mycamine Inj 100 MG In NS Inj 100 / 100 100 ML @ 100 mls/hr IV.SIG Q24H [facility]ORGE Rx#:[id number] NS Inj 1,000 ML @ 1000 mls/hr 1000 / 1000 IV.SIG BOLUS GEORGE Rx#:[id number] Oral 360 / 360 840 / 840 Output: Urine 500 / 500 2400 / 2400 Other: Date of Last Bowel Movement 01/29/19 # Bowel Movements 4 01/28/19 11:26 Blood - Peripheral Aerobic Blood Culture - Preliminary No growth in 1 day 01/28/19 11:26 Blood - Peripheral Anaerobic Blood Culture - Preliminary No growth in 1 day 01/28/19 11:18 Blood - Peripheral Aerobic Blood Culture - Preliminary No growth in 1 day 01/28/19 11:18 Blood - Peripheral Anaerobic Blood Culture - Preliminary No growth in 1 day 01/28/19 12:19 Catheter Tip - Other Wound Culture - Pending 01/28/19 09:52 Random Urine Urine Culture - Pending Lab - Hematology Results 01/28/19 01/28/19 01/29/19 05:35 18:10 07:17 WBC 7.3 7.4 RBC 2.96 L 3.30 L Hgb 8.9 L 8.4 L 9.9 L Hct 26.4 L 25.1 L 29.8 L MCV 89.0 90.2 MCH 29.9 29.9 MCHC 33.6 33.2 RDW 15.8 16.1 Plt Count 398 378 MPV 6.9 L 6.9 L Prelim Diff (Auto) Slide review pending Neut % (Auto) 66.6 Lymph % (Auto) 11.6 [place] % (Auto) 12.2 H Eos % (Auto) 9.0 H Baso % (Auto) 0.6 Neut # (Auto) 4.9 Lymph # (Auto) 0.9 L [place] # (Auto) 0.9 Eos # (Auto) 0.7 H Baso # (Auto) 0.0 WBC Differential Manual diff final Seg Neuts % (Manual) 58 Band Neuts % (Manual) 17 H Lymphocytes % (Manual) 13 Monocytes % (Manual) 6 Eosinophils % (Manual) 3 Metamyelocytes % (Man) 2 H Myelocytes % (Man) 1 H Abs Neuts (Manual) 5.8 Differential Comment . Platelet Estimate Normal Platelet Morphology Normal Lab - Chemistry Results 01/28/19 01/29/19 05:35 07:17 Sodium 139 141 Potassium 4.0 4.3 Chloride 107 113 H Carbon Dioxide 23.5 22.7 Anion Gap 9 5 BUN 17 19 H Creatinine 1.43 H 1.32 H Estimated GFR 47 L 52 L Random Glucose 91 87 Calcium 7.7 L 7.7 L Imaging: ITS Impressions Liver Ultrasound 01/07/19 00:00 CONCLUSION: 1. Minimal increase in echogenicity of the liver without mass or hydronephrosis. 2. There is no ductal dilatation Abdomen/Pelvis CT 01/17/19 00:00 CONCLUSION: 1. Persistent dilation of small bowel loops with a discrete transition in the region of the ileum concerning for at least a partial small bowel obstruction. The degree of small bowel distention is relatively stable. 2. Postsurgical changes with findings of prior prostatectomy. Penile prostheses but the reservoir appears to be decompressed. 3. Extensive sclerosis and cortical thickening predominantly in the right ilium and acetabulum. Some sclerosis in the left ilium, pubic ramus and lower lumbar spine. 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 4. Stable small bilateral pleural effusions with concomitant atelectatic changes. Mild abdominal ascites around the hepatic convexity is slightly increased. 5. Old granulomatous disease. Abdomen X-Ray 01/17/19 07:00 CONCLUSION: Moderate severity small bowel distention without significant change. Chest X-Ray 01/28/19 00:00 CONCLUSION: PICC line in good position. Minimal bibasilar parenchymal changes, improving interval Physical Exam: GENERAL: awake and alert, NAD SKIN: Cool and dry. No generalized rash EYES: [place] conjunctiva. No petechia or hemorrhage. No scleral icterus. No injection or drainage. EARS, NOSE AND THROAT: Mucous membranes pink and moist. NECK: Trachea midline. Supple and not tender, no meningeal signs CARDIOVASCULAR: Regular rate and rhythm. No murmurs, rubs or gallops heard RESPIRATORY: Clear to auscultation. Breath sounds equal bilaterally. No rales , wheezing or rhonchi ABDOMEN: Soft and not tender. EXTREMITIES: No clubbing, cyanosis, or edema. No calf tenderness. : Galvez catheter in place, blood tinged urine NEUROLOGICAL: Non-focal. PSYCHIATRIC: calm and cooperative. LINE: PICC with no evidence of infection Assessment and Plan - Plan IMpression New fevers - ?related to procedure - new sepsis Possible sepsis due to UTI, better Acute Pyelonephritis, with gross hematuria, has hydroureteronephrosis on R PSAE infection UTI, treated Hemorrhagic cystitis, better Hx prostate CA with bone mets Acute Renal insufficiency, worsening again Itching with PCN Vomiting, recurrent C difficile colitis, seems to be improving Recommendation Follow new C/S Monitor temps Continue IV Cefepime Continue IV Micafungin, po Diflucan Continue PO vanco Monitor progress
[2019-01-29] MEDS: Mirtazapine 15 MG Tablet PO SCH (20:22)
[2019-01-30] MEDS: Benzonatate 100 MG Capsule PO SCH ×2 (02:27→10:19)
[2019-01-30] MEDS: Sod Chloride 0.9% Inj 1,000 ML IV.CONT SCH (06:06)
[2019-01-30] MEDS ORDERED: Petrolatum Oint 30 GM Tube TOPICAL PRN (08:46)
--- NOTE | 2019-01-30 08:57 | P.PNFP ---
Subjective Interval history: No acute events overnight. He has continued to have intermittent fevers and shaking chills He does express any desire to eat, but states he was too nauseous yesterday. He was not even able to tolerate pills for part of the day. He denies shortness of breath, chest pain, palpitations, nausea, vomiting, abdominal pain, and diarrhea. <Kayode GargZhao J - 01/30/19 08:57> Results - Labs Result diagrams: 01/30/19 09:25 01/30/19 09:25 <Pat Blas - 01/31/19 13:19> Abnormal lab results 01/29/19 01/29/19 Range/Units 07:17 07:17 Band Neuts % (Manual) 17 H (0-6) % Metamyelocytes % (Man) 2 H (0-1) % Myelocytes % (Man) 1 H (0-0) % Chloride 113 H (98-107) meq/L BUN 19 H (7-18) mg/dL Creatinine 1.32 H (0.60-1.30) mg/dL Estimated GFR 52 L (>89) mL/min Calcium 7.7 L (8.5-10.1) mg/dL BMP 01/29/19 07:17 Sodium 141 Potassium 4.3 Chloride 113 H Carbon Dioxide 22.7 BUN 19 H Creatinine 1.32 H Calcium 7.7 L <Kayode GargSachinZhao J - 01/30/19 08:57> Physical Exam Vital signs: Intake & Output 01/30/19 01/31/19 01/31/19 18:59 06:59 18:59 Other: Date of Last Bowel Movement 01/26/19 <Pat Blas - 01/31/19 13:19> Vital Signs 01/29/19 12:00 01/29/19 16:00 01/29/19 19:25 Temperature 99.4 F 100.1 F H 98.1 F Pulse Rate 104 H 95 H 99 H Respiratory Rate 18 18 18 Blood Pressure 134/68 148/70 H 150/68 H Pulse Oximetry 99 99 96 01/29/19 23:50 01/30/19 02:28 01/30/19 03:25 Temperature 100.8 F H 98.2 F 98.0 F Pulse Rate 96 H 96 H Respiratory Rate 18 18 Blood Pressure 129/68 142/74 H Pulse Oximetry 97 97 Intake & Output 01/29/19 01/30/19 01/30/19 18:59 06:59 18:59 Intake Total 1700 / 1700 2220 / 2220 Output Total 700 / 700 995 / 995 Balance 1000 / 1000 1225 / 1225 Weight 70.8 kg Intake: IV 1200 / 1200 2100 / 2100 NS Inj 1,000 ML @ 100 mls/hr IV 1000 / 1000 1999 / 1999 .CONT .Q10H [facility] Rx#:[id number] Maxipime Inj 2,000 MG In NS Inj 100 / 100 100 / 100 100 ML @ 200 mls/hr IV.SIG Q12H [facility] Rx#:[id number] Mycamine Inj 100 MG In NS Inj 100 / 100 100 ML @ 100 mls/hr IV.SIG Q24H [facility] Rx#:[id number] Oral 500 / 500 120 / 120 Output: Urine 700 / 700 995 / 995 Other: Date of Last Bowel Movement 01/26/19 # Bowel Movements 1 <Zhao Brian 01/30/19 08:57> Narrative: General: Elderly male, no acute distress Eyes: EOMI, anicteric scleral, no conjunctival injection ENT: Atraumatic, MMM Neck: Trachea midline, no masses Respiratory: normal respiratory effort, some decreased breath sounds at the lung bases Cardiovascular: Regular rate and rhythm without murmur, 1+ pedal pulses, no peripheral edema. Abdomen: Normal bowel sounds. Nontender, soft, no guarding or rebound. : Galvez catheter in place, red sediment in the urine Back. Sacral I ulcer: dressing in place Psychiatric: Alert and oriented. Normal affect. <Zhao Brian 01/30/19 08:57> - Urinary Catheter Management 3-way Urethral Cath placed during this visit: no <Pat Blas 01/31/19 13:19> no <Zhao Brian 01/30/19 15:52> Reason for continuing: Gross Hematuria <Zhao Brian 01/30/19 08: 57> Indwelling Temp Sensing Catheter Cath placed during this visit: no <Pat Blas 01/31/19 13:19> no <Sharongliano Zhao Garg - 01/30/19 15:52> Reason for continuing: Gross Hematuria <Stagliano Zhao Garg - 01/30/19 08: 57> Indwelling Urethral Catheter Cath placed during this visit: no <Pat Blas - 01/31/19 13:19> yes, but has since been removed by the nurse <Sharongliano Zhao Garg - 01/30/19 15:52> Urethral indwelling: Yes <Stagliano R1Zhao - 01/30/19 08:57> Reason for continuing: Gross Hematuria <Stagliano R1Lindsays Elizabeth - 01/30/19 08: 57> Insertion date: 01/26/19 <Stagliano R1Zhao - 01/30/19 08:57> Insertion time: 17:35 <Stagliano R1Zhao - 01/30/19 08:57> Removal date: 01/09/19 <Stagliano R1Lindsays Elizabeth - 01/30/19 08:57> Removal time: 17:30 <Stagliano R1Lindsays Elizabeth - 01/30/19 08:57> Assessment and Plan - Assessment (1) Partial bowel obstruction Code(s): K56.600 - Partial intestinal obstruction, unspecified as to cause Status: Acute (2) Pneumonia Code(s): J18.9 - Pneumonia, unspecified organism Status: Acute (3) Complicated urinary tract infection Code(s): N39.0 - Urinary tract infection, site not specified Status: Acute (4) Gross hematuria Code(s): R31.0 - Gross hematuria Status: Resolved (5) Hypertension Code(s): I10 - Essential (primary) hypertension Status: Chronic (6) Prostate cancer Code(s): C61 - Malignant neoplasm of prostate Status: Chronic (7) Ulcer of sacral region, stage 1 Code(s): L98.429 - Non-pressure chronic ulcer of back with unspecified severity Status: Acute <Pat Blas - 01/31/19 13:19> (1) Partial bowel obstruction Code(s): K56.600 - Partial intestinal obstruction, unspecified as to cause Status: Acute Plan: (2) Pneumonia Code(s): J18.9 - Pneumonia, unspecified organism Status: Acute Plan: (3) Complicated urinary tract infection Code(s): N39.0 - Urinary tract infection, site not specified Status: Acute Plan: (4) Gross hematuria Code(s): R31.0 - Gross hematuria Status: Resolved Plan: (5) Hypertension Code(s): I10 - Essential (primary) hypertension Status: Chronic Plan: (6) Prostate cancer Code(s): C61 - Malignant neoplasm of prostate Status: Chronic Plan: (7) Ulcer of sacral region, stage 1 Code(s): L98.429 - Non-pressure chronic ulcer of back with unspecified severity Status: Acute <Kayode GargZhao J - 01/30/19 15:51> - Assessment and Plan He is an 83-year-old male with a history of prostate cancer admitted with hematuria found to have a partial small bowel obstruction which has now resolved. Recurrent Fever: Chest x-ray showed improvement over prior films. He recently had cystocope done, may be related to the effects of the procedure -Urine culture on 01/28 she is a preliminary result of yeast (ID to follow) Blood cultures from 01/28 no growth to date -PICC line removed and cultured on 01/28: Less than 15 CFU of coagulase negative staph -ID reconsulted to provide assistance with abx as patient is allergic to PNC and has C.diff -Continue IV Cefepime, IV Micafungin, PO Diflucan, and continue PO vanc for C.diff Prostate cancer with bone metastases: Also presented with urosepsis that has since resolved He will follow-up with urologist at the [place] for management as outpatient Patient was taking Xtandi 40mg daily, brought in medicine Infection adequately treated with Levaquin for 12 days. Levaquin stopped 01/22 due to C. difficile. Urology recommendation on 01/27: Leave Galvez catheter indwelling for minimum period of 1 week prior to removal for voiding trail. On Flomax, hold oxybutynin H&H stable, will continue to follow Diarrhea secondary to C. difficile: Oral vancomycin started 01/21, plan for 10-14 days and when off other antibiotics Diarrhea resolved Partial small bowel obstruction / ileus (resolved): Had multiple days with no bowel movements and worsening distention and nausea/vomiting on 01/11. KUB at that time showed an abnormal bowel gas pattern. He was put NPO, NG tube to suction, IV fluids. SBO . ileus resolved, he is currently having diarrhea now, NG tube was removed 01/19 he is on a regular diet and half speed TPN. General surgery consulted, patient was managed medically. They have signed off TPN was discontinued 01/22 Reglan and Zofran as needed for nausea Pneumonia (resolved): Chest x-ray showing bilateral infiltrates on 01/11. Repeat CXR 01/21 and 01/28 both showed interval improvement Incentive spirometry -Mucinex and Tessalon for symptomatic cough Hypertension: Continue home medication metoprolol Hyperlipidemia: Continue home medication pravastatin Sacral Ulcer-Stage 1 -Vaseline -Sacral pad daily Fluids: NS 100mls/hr Electrolytes: monitor and replete as needed Nutrition: Regular diet as tolerated. Reglan before meals at bedtime due to continued nausea GI prophylaxis: on PO Protonix at home VTE prophylaxis: b/l SCDs (pharmacologic prophylaxis contraindicated due to hematuria) Disposition: Significant deconditioning, daily PT. Patient was accepted to [facility] in [place] before he had recurrent fevers. Now palliative care is involved in the patient is interested in changing goals of care to comfort measures. He spoke to hospice yesterday and signed papers to go today. He states that he spoke to his and she was upset. Plan for hospice at a care facility today. <Zhao Brian - 01/30/19 15:52> - Attending Attestation The exam, history, and the medical decision-making described in the above note were completed with the assistance of the resident physician. I reviewed and agree with the findings presented. I attest that I had a [id number] encounter with the patient on the same day, and personally performed and documented my assessment and findings in the medical record. Poor man has had a very hard time recently with one problem after another and no end in sight. he is ready for hospice. hopefully his accepts his decision to go on hospice <Pat Blas - 01/31/19 13:19>
[2019-01-30] MEDS: Lactobacillus Acidophilus/L. Spores Tablet PO SCH (10:17)
[2019-01-30] MEDS: Metoprolol Tartrate 25 MG Tablet PO SCH (10:17)
[2019-01-30] MEDS: Heparin Central Flush 100 UNIT/ML 5 ML Vial IV.FLUSH SCH (10:17)
[2019-01-30] MEDS: XTANDI 40 MG PO SCH (10:18)
[2019-01-30] MEDS: guaiFENesin 600 MG ER Tablet PO SCH (10:18)
[2019-01-30 10:53] LABS: Baso % (Auto) 0.6 % (0.0-2.0); Eos # (Auto) 0.5 th/mm3 (0.0-0.4); Hematocrit 27.2 % (39.0-51.0); Hemoglobin 9.2 gm/dL (13.0-17.0); Lymph # (Auto) 1.1 th/mm3 (1.0-4.8); Lymph % (Auto) 16.4 % (9.0-44.0); Mean Corpuscular HGB Conc 33.7 % (32.0-36.0); Mean Corpuscular Hemoglobin 29.5 pg (27.0-34.0); Mean Corpuscular Volume 87.6 fL (80.0-100.0); Mean Platelet Volume 7.5 fL (7.0-11.0); Mono # (Auto) 0.6 th/mm3 (0.0-0.9); Mono % (Auto) 9.5 % (0.0-8.0); Neut # (Auto) 4.3 th/mm3 (1.8-7.7); Neut % (Auto) 66.5 % (16.0-70.0); Platelet Count 354 th/mm3 (150-450); Red Cell Distribution Width 15.8 % (11.6-17.2); White Blood Count 6.5 th/mm3 (4.0-11.0)
[2019-01-30 11:22] LABS: Calcium 7.4 mg/dL (8.5-10.1); Carbon Dioxide 20.7 meq/L (21.0-32.0); Potassium 3.8 meq/L (3.5-5.1)
[2019-01-30 11:31] LABS: Albumin 1.4 g/dL (3.4-5.0); Calcium-Albumin Corrected 9.5 mg/dL (8.5-10.1)
--- NOTE | 2019-01-30 13:51 | P.PNID ---
Subjective Remarks: Patient is an 83-year-old male, with known history of prostate cancer, recently diagnosed to have recurrence, and metastatic disease, presented to the hospital complaining of severe suprapubic abdominal pain. Patient apparently has had problem with urinary retention, and he has been requiring Galvez catheter for this problem since I believe September 2018. In October, he was hospitalized at the [facility] due to urinary retention. According to the patient while he was in there they tried straight catheter procedure for his problem, and patient stated he developed hematuria. He was switched back to Galvez catheter, and he was discharged to the [facility] rehab. Patient stated that his catheter was changed in the rehab once, but he could not remember the last time it was changed. 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 In the ED they did a bladder scan, and apparently the volume was about 30 mL. He had hematuria at that time, and urine culture was sent and he was sent back to the rehab facility. Apparently the pain medication prescribed to him was not working, so the patient was brought back to the hospital and has now been admitted. Patient currently is complaining of nausea and dry heaves. He is also complaining of significant pain in the suprapubic region. He has gross hematuria and he is urine bag. Patient has been febrile up to 102. CT of the abdomen and pelvis is showing evidence of right hydro-ureteric nephrosis , and there was also possibly a bladder calculi. The bladder is decompressed. Patient gives a history of penicillin allergy with itching. Infectious disease consultation has been requested to assist with antibiotic management. Notes reviewed Temps low grade, not as high Feels better No abdominal pain No N/V Eating No BM UA with pyuria, bacteria and yeast BC negative UC yeast PICC removed yesterday Palliative medicine evaluating patient Last CXR 01/28, improving infiltrates Creatinine same 1.3 Antibiotics: PO vancomycin Cefepime Micafungin Diflucan Lines: PICC Past Medical History: reviewed Allergies/Adverse Reactions: Allergies Penicillins Allergy (Verified 01/06/19 02:12) Itching Objective Vital Signs 01/29/19 16:00 01/29/19 19:25 01/29/19 23:50 Temperature 100.1 F H 98.1 F 100.8 F H Pulse Rate 95 H 99 H 96 H Respiratory Rate 18 18 18 Blood Pressure 148/70 H 150/68 H 129/68 Pulse Oximetry 99 96 97 01/30/19 02:28 01/30/19 03:25 01/30/19 08:00 Temperature 98.2 F 98.0 F 98.1 F Pulse Rate 96 H 94 H Respiratory Rate 18 18 Blood Pressure 142/74 H 153/83 H Pulse Oximetry 97 96 Intake & Output 01/29/19 01/30/19 01/30/19 18:59 06:59 18:59 Intake Total 1700 / 1700 2220 / 2220 Output Total 700 / 700 995 / 995 Balance 1000 / 1000 1225 / 1225 Weight 70.8 kg Intake: IV 1200 / 1200 2100 / 2100 NS Inj 1,000 ML @ 100 mls/hr IV 1000 / 1000 2000 / 1999 .CONT .Q10H [facility] Rx#:[id number] Maxipime Inj 2,000 MG In NS Inj 100 / 100 100 / 100 100 ML @ 200 mls/hr IV.SIG Q12H [facility] Rx#:[id number] Mycamine Inj 100 MG In NS Inj 100 / 100 100 ML @ 100 mls/hr IV.SIG Q24H [facility]OR[facility] Rx#:[id number] Oral 500 / 500 120 / 120 Output: Urine 700 / 700 995 / 995 Other: Date of Last Bowel Movement 01/26/19 # Bowel Movements 1 01/28/19 11:26 Blood - Peripheral Aerobic Blood Culture - Preliminary No growth in 2 days 01/28/19 11:26 Blood - Peripheral Anaerobic Blood Culture - Preliminary No growth in 2 days 01/28/19 11:18 Blood - Peripheral Aerobic Blood Culture - Preliminary No growth in 2 days 01/28/19 11:18 Blood - Peripheral Anaerobic Blood Culture - Preliminary No growth in 2 days 01/28/19 12:19 Catheter Tip - Other Wound Culture - Final 01/28/19 09:52 Random Urine Urine Culture - Preliminary Yeast - ID to follow Lab - Hematology Results 01/28/19 01/29/19 01/30/19 18:10 07:17 09:25 WBC 7.4 6.5 RBC 3.30 L 3.10 L Hgb 8.4 L 9.9 L 9.2 L Hct 25.1 L 29.8 L 27.2 L MCV 90.2 87.6 MCH 29.9 29.5 MCHC 33.2 33.7 RDW 16.1 15.8 Plt Count 378 354 MPV 6.9 L 7.5 Prelim Diff (Auto) Slide review pending Neut % (Auto) 66.6 66.5 Lymph % (Auto) 11.6 16.4 Cross % (Auto) 12.2 H 9.5 H Eos % (Auto) 9.0 H 7.0 H Baso % (Auto) 0.6 0.6 Neut # (Auto) 4.9 4.3 Lymph # (Auto) 0.9 L 1.1 Cross # (Auto) 0.9 0.6 Eos # (Auto) 0.7 H 0.5 H Baso # (Auto) 0.0 0.0 WBC Differential Manual diff final . Seg Neuts % (Manual) 58 Band Neuts % (Manual) 17 H Lymphocytes % (Manual) 13 Monocytes % (Manual) 6 Eosinophils % (Manual) 3 Metamyelocytes % (Man) 2 H Myelocytes % (Man) 1 H Abs Neuts (Manual) 5.8 Differential Comment . Auto diff final Platelet Estimate Normal Platelet Morphology Normal Lab - Chemistry Results 01/29/19 01/30/19 07:17 09:25 Sodium 141 142 Potassium 4.3 3.8 Chloride 113 H 113 H Carbon Dioxide 22.7 20.7 L Anion Gap 5 8 BUN 19 H 16 Creatinine 1.32 H 1.05 Estimated GFR 52 L 67 L Random Glucose 87 60 L Calcium 7.7 L 7.4 L* Calcium Adj for Albumin 9.5 Albumin 1.4 L Imaging: ITS Impressions Liver Ultrasound 01/07/19 00:00 CONCLUSION: 1. Minimal increase in echogenicity of the liver without mass or hydronephrosis. 2. There is no ductal dilatation Abdomen/Pelvis CT 01/17/19 00:00 CONCLUSION: 1. Persistent dilation of small bowel loops with a discrete transition in the region of the ileum concerning for at least a partial small bowel obstruction. The degree of small bowel distention is relatively stable. 2. Postsurgical changes with findings of prior prostatectomy. Penile prostheses but the reservoir appears to be decompressed. 3. Extensive sclerosis and cortical thickening predominantly in the right ilium and acetabulum. Some sclerosis in the left ilium, pubic ramus and lower lumbar spine. 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 4. Stable small bilateral pleural effusions with concomitant atelectatic changes. Mild abdominal ascites around the hepatic convexity is slightly increased. 5. Old granulomatous disease. Abdomen X-Ray 01/17/19 07:00 CONCLUSION: Moderate severity small bowel distention without significant change. Chest X-Ray 01/28/19 00:00 CONCLUSION: PICC line in good position. Minimal bibasilar parenchymal changes, improving interval Physical Exam: GENERAL: awake and alert, NAD SKIN: Cool and dry. No generalized rash EYES: [place] conjunctiva. No petechia or hemorrhage. No scleral icterus. No injection or drainage. EARS, NOSE AND THROAT: Mucous membranes pink and moist. NECK: Trachea midline. Supple and not tender, no meningeal signs CARDIOVASCULAR: Regular rate and rhythm. No murmurs, rubs or gallops heard RESPIRATORY: Clear to auscultation. Breath sounds equal bilaterally. No rales , wheezing or rhonchi ABDOMEN: Soft and not tender. EXTREMITIES: No clubbing, cyanosis, or edema. No calf tenderness. : Galvez catheter in place, blood tinged urine NEUROLOGICAL: Non-focal. PSYCHIATRIC: calm and cooperative. LINE: PICC with no evidence of infection Assessment and Plan - Plan IMpression New fevers - ?related to procedure - new sepsis Possible sepsis due to UTI, better Acute Pyelonephritis, with gross hematuria, has hydroureteronephrosis on R PSAE infection UTI, treated Hemorrhagic cystitis, better Hx prostate CA with bone mets Acute Renal insufficiency, worsening again Itching with PCN Vomiting, recurrent C difficile colitis, seems to be improving Recommendation Follow new C/S Monitor temps Continue IV Cefepime Continue IV Micafungin, po Diflucan Continue PO vanco Monitor progress Adjust Abx once C/S finalized
--- NOTE | 2019-01-30 15:46 | P.DS ---
Date of admission: 01/06/19 14:36 Primary care physician: [facility] Brief History from admission: This is an 83 yo M with a history of prostate cancer, 25 years status post radical proctectomy, orchiectomy with failed penile prosthesis who presents after a 1 day history of lower abdominal pain and a 3 week history of hematuria. Patient patient reports that he had recurrence of his prostate cancer 3 years ago and is currently undergoing treatment with oral chemotherapy. Patient now has metastasis on right hip. Patient reports that his condition originally began in September. It started with a weak urinary flow and says that it felt like his urine was blocked and was only able to urinate a few drops to dribbles. Patient also reports seeing blood in the toilet. Due to patients inability to urinate he came to the emergency room a couple of days before [facility] at the [facility] in [facility] where he spent 8 days. He said they changed his Galvez catheter and gave him pain medication, patient cannot remember what else they did. After the [facility] he went to rehab for 3 weeks at the [facility]. Patient reports that when being released from rehab he was still experiencing urinary retention and was given urinary catheter. At 2 am today patient began to experience pain over his bladder that he described as stabbing, non-radiating, and intermittent. He reports feeling the pain would come and go about every 20 minutes and would last 20 minutes. There were no alleviating or exacerbating factors. Denies chest pain, shortness of breath, nausea, vomiting, fevers, or chills. PMHx: HTN, Hyperlipidemia, Prostate cancer now in remission Meds: Medication Surgical Hx: Cholecystectomy in 2014, Tonsillectomy 2015, bilateral Orchiectomy 2014 Fam Hx: Father had prostatectomy due to blockage Allergies: Penicillin causes itching Social: Lives with of 25 years, retired from computer programing. Never smoker, drinker, and denies drug use. Code: DNR, Parul Rutherford is proxy. [facility] Dr. Mitchell Oncologist Dr. Norman No Operations Supervisor No Urologist DS: Diagnosis - Discharge Diagnosis (1) Partial bowel obstruction Status: Acute (2) Pneumonia Status: Acute (3) Complicated urinary tract infection Status: Acute (4) Gross hematuria Status: Resolved (5) Hypertension Status: Chronic (6) Prostate cancer Status: Chronic (7) Ulcer of sacral region, stage 1 Status: Acute DS: Summary - Time Spent with Patient Total time spent providing and/or coordinating discharge services: - Quality: VTE Deep Vein Thrombosis/Pulmonary Embolism Present on Admission: No Exam Vital signs: Vital Signs 01/29/19 16:00 01/29/19 19:25 01/29/19 23:50 Temperature 100.1 F H 98.1 F 100.8 F H Pulse Rate 95 H 99 H 96 H Respiratory Rate 18 18 18 Blood Pressure 148/70 H 150/68 H 129/68 Pulse Oximetry 99 96 97 01/30/19 02:28 01/30/19 03:25 01/30/19 08:00 Temperature 98.2 F 98.0 F 98.1 F Pulse Rate 96 H 94 H Respiratory Rate 18 18 Blood Pressure 142/74 H 153/83 H Pulse Oximetry 97 96 Intake & Output 01/29/19 01/30/19 01/30/19 18:59 06:59 18:59 Intake Total 1700 / 1700 2220 / 2220 Output Total 700 / 700 995 / 995 Balance 1000 / 1000 1225 / 1225 Weight 70.8 kg Intake: IV 1200 / 1200 2100 / 2100 NS Inj 1,000 ML @ 100 mls/hr IV 1000 / 1000 2000 / 2000 .CONT .Q10H [facility] Rx#:[id number] Maxipime Inj 2,000 MG In NS Inj 100 / 100 100 / 100 100 ML @ 200 mls/hr IV.SIG Q12H [facility] Rx#:[id number] Mycamine Inj 100 MG In NS Inj 100 / 100 100 ML @ 100 mls/hr IV.SIG Q24H [facility] Rx#:[id number] Oral 500 / 500 120 / 120 Output: Urine 700 / 700 995 / 995 Other: Date of Last Bowel Movement 01/26/19 01/26/19 # Bowel Movements 1 Results Labs on day of discharge: Labs from last 24 hours 01/30/19 01/30/19 09:25 09:25 WBC 6.5 RBC 3.10 L Hgb 9.2 L Hct 27.2 L MCV 87.6 MCH 29.5 MCHC 33.7 RDW 15.8 Plt Count 354 MPV 7.5 Neut % (Auto) 66.5 Lymph % (Auto) 16.4 [place] % (Auto) 9.5 H Eos % (Auto) 7.0 H Baso % (Auto) 0.6 Neut # (Auto) 4.3 Lymph # (Auto) 1.1 [place] # (Auto) 0.6 Eos # (Auto) 0.5 H Baso # (Auto) 0.0 WBC Differential . Differential Comment Auto diff final Sodium 142 Potassium 3.8 Chloride 113 H Carbon Dioxide 20.7 L Anion Gap 8 BUN 16 Creatinine 1.05 Estimated GFR 67 L Random Glucose 60 L Calcium 7.4 L* Calcium Adj for Albumin 9.5 Albumin 1.4 L Preliminary micro results at discharge 01/28/19 11:26 Aerobic Blood Culture - Preliminary Blood - Peripheral No growth in 2 days Anaerobic Blood Culture - Preliminary No growth in 2 days 01/28/19 11:18 Aerobic Blood Culture - Preliminary Blood - Peripheral No growth in 2 days Anaerobic Blood Culture - Preliminary No growth in 2 days - Impressions ITS Impressions Liver Ultrasound 01/07/19 00:00 CONCLUSION: 1. Minimal increase in echogenicity of the liver without mass or hydronephrosis. 2. There is no ductal dilatation Abdomen/Pelvis CT 01/17/19 00:00 CONCLUSION: 1. Persistent dilation of small bowel loops with a discrete transition in the region of the ileum concerning for at least a partial small bowel obstruction. The degree of small bowel distention is relatively stable. 2. Postsurgical changes with findings of prior prostatectomy. Penile prostheses but the reservoir appears to be decompressed. 3. Extensive sclerosis and cortical thickening predominantly in the right ilium and acetabulum. Some sclerosis in the left ilium, pubic ramus and lower lumbar spine. 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 4. Stable small bilateral pleural effusions with concomitant atelectatic changes. Mild abdominal ascites around the hepatic convexity is slightly increased. 5. Old granulomatous disease. Abdomen X-Ray 01/17/19 07:00 CONCLUSION: Moderate severity small bowel distention without significant change. Chest X-Ray 01/28/19 00:00 CONCLUSION: PICC line in good position. Minimal bibasilar parenchymal changes, improving interval Discharge Plan - Discharge Disposition Patient Disposition: 51 Hospice/Med Facility - Discharge Condition Condition: Stable - Discharge Order Discharge Orders: Discharge Order (Routine); Ordered 01/30/19 Ordered By: Zhao Headley R1 - Physicians Team Primary Care Provider: [facility] Attending Provider: Pat Blas Other Providers: Yessenia King MD ; Augustus Black MD ; Anmol Barnes MD ; [facility] ; Ashley Damico MD
[2019-01-30 17:39] VITALS: BP 131/80; PULSE 88; TEMP 98.4; O2SAT 97
== END 2019-01-30 15:22 | disposition hospice, inpatient (51) | DRG 853 ==
LOC: NEPC 10:59 → NEDA 14:36 → N04 18:09 → N03 01-12 00:36 → N04 01-21 18:45
PROVIDERS: ADMIT Family Medicine; ATTEND Family Medicine
CPT/HCPCS: 36430; 36569; 36600; 51702; 71010; 71045; 74000; 74018; 74176; 74177; 76705; 76937; 80048; 80053; 80061; 81001; 82040; 82105; 82150; 82248; 82378; 82805; 82948; 82962; 83605; 83690; 83735; 84100; 84145; 84478; 84484; 85014; 85018; 85025; 85027; 85384; 85610; 85651; 85652; 85730; 86140; 86301; 86850; 86900; 86901; 86923; 87040; 87071; 87077; 87086; 87186; 87324; 87449; 87493; 87641; 90774; 90775; 90776; 90784; 92526; 92610; 93005; 94150; 94640; 94664; 94665; 96374; 96375; 96376; 97110; 97116; 97162; 97164; 97167; 97530; 99285; C8952; C9113; C9452; G0195; J0131; J0692; J0695; J1100; J1642; J1940; J1956; J2020; J2175; J2248; J2270; J2370; J2405; J2704; J2765; J3010; J3480; J7030; J7040; J7050; J7070; P9016; Q9963; Q9967